=== PATIENT | male | born 1975 | race Caucasian/White ===

== ENCOUNTER → 2017-12-17 15:40 | Outpatient (CLI) | payer BC, SELFPAY | PROVIDERS: Family Provider Family Medicine; PCP Family Medicine; Visit Provider Family Medicine | DX: M79.672 Pain in left foot (principal) | CPT/HCPCS: 73630 ==

== ENCOUNTER → 2018-09-22 10:45 | Outpatient (CLI) | payer BC, SELFPAY ==
--- NOTE | 2018-09-22 10:52 | RAD_ITS ---
STUDY: X-RAY - PELVIS AND BILATERAL HIPS REASON FOR EXAM: Male, 43 years old. Hip pain TECHNIQUE: AP view of the pelvis.? 2 views of the right hip, and 2 views of the left hip were obtained. COMPARISON: None. FINDINGS: There is a non-specific bowel gas pattern. Normal visualized soft tissue structures. Normal bilateral iliac wings, sacroiliac joints and visualized sacrum. Normal bilateral superior and inferior pubic rami. Normal pubic symphysis. Normal bilateral ischial tuberosities. Normal visualized right femoral head. Normal right acetabulum. Normal right hip joint. Normal visualized left femoral head. Normal left acetabulum. Normal left hip joint. RAD/Hips B/L min 2 views w/ Pelvis IMPRESSION: Normal x-ray examination of the pelvis and bilateral hips. Electronically Signed: Mitch Alvarez DO at 19:26 EDT Tel , Service support ,
--- NOTE | 2018-09-22 10:53 | RAD_ITS ---
STUDY: X-RAY - SACROILIAC JOINTS REASON FOR EXAM: Male, 43 years old. Lumbar radiculopathy TECHNIQUE: 3 view(s) of the sacroiliac joints were obtained. COMPARISON: None. FINDINGS: Normal bilateral sacroiliac joints. Normal visualized sacral ala and sacrum. Normal visualized iliac bones. Normal visualized soft tissue structures. RAD/S-I Jts 3 or More Views IMPRESSION: Normal x-ray examination of the bilateral sacroiliac joints. Electronically Signed: Mitch Alvarez DO at 21:00 EDT Tel , Service support ,
--- NOTE | 2018-09-22 10:55 | RAD_ITS ---
STUDY: X-RAY - LUMBAR SPINE REASON FOR EXAM: Male, 43 years old. Back pain TECHNIQUE: 5 view(s) of the lumbar spine were obtained. COMPARISON: None FINDINGS: Normal lumbar lordosis. There is no substantial scoliosis. There is a normal alignment of the vertebrae. Normal vertebral bodies and endplates. Normal disc space heights. The soft tissue structures are unremarkable. RAD/L/S Spine Min 4 Views IMPRESSION: Normal x-ray examination of the lumbar spine. Electronically Signed: Mitch Alvarez DO at 19:27 EDT Tel , Service support ,
== END ==
PROVIDERS: Family Provider Family Medicine; PCP Family Medicine; Referring Provider Family Medicine; Visit Provider Family Medicine
DX: M25.551 Pain in right hip (principal); M25.552 Pain in left hip; M54.16 Radiculopathy, lumbar region
CPT/HCPCS: 72110; 72202; 73521

== ENCOUNTER → 2018-10-30 09:57 | Outpatient (CLI) | payer BC, SELFPAY ==
[2018-10-30 13:34] LABS: AST(SGOT) 13 U/L (15-37); Alanine Aminotransfer ALT/SGPT 31 U/L (16-61); Albumin, Serum 4.1 g/dL (3.2-5.0); Alkaline Phosphatase 62 U/L (45-117); Anion Gap 10 (5-15); BUN 17 mg/dL (7-18); BUN/Creat Ratio 17.5 RATIO (10-20); Bilirubin, Direct 0.13 mg/dL (0.00-0.30); Chloride 102 mmol/L (98-107); Cholesterol 226 mg/dL (200); Creatinine, Serum 0.97 mg/dL (0.70-1.30); EST Glomerular Filtration Rate 91 mL/min (>60); Est Glom Filt Rate - Afr Amer 110 mL/min (>60); Globulin 3.6 g/dL (2.2-4.2); Glucose 320 mg/dL (74-106); High Density Lipoprotein 58 mg/dL; Potassium 4.7 mmol/L (3.5-5.1); Protein, Total 7.7 g/dL (6.4-8.2); Sodium Level 137 mmol/L (136-145); Triglycerides 146 mg/dL; Very Low Density Lipoprotein 29 mg/dL (5-40)
[2018-10-30 13:54] LABS: Hemoglobin A1c 9.9 % (4.2-6.3)
== END ==
PROVIDERS: Family Provider Family Medicine; PCP Family Medicine; Visit Provider Family Medicine
DX: E11.9 Type 2 diabetes mellitus without complications (principal)
CPT/HCPCS: 36415; 80048; 80061; 80076; 83036

== ENCOUNTER 2018-11-19 14:20 | Emergency (ER) | payer BC, SELFPAY ==
[2018-11-19 14:21] VITALS: BP 142/91; PULSE 97; RESP 18; TEMP 36.2; O2SAT 99; BMI 31.8
[2018-11-19 15:15] VITALS: TEMP 36.2
[2018-11-19 15:50] LABS: Absolute Lymphocyte Count 1.07 X10^3/uL (0.83-4.51); Absolute Neutrophil Count 4.5 X10^3/uL (2.0-7.7); Basophil# 0.04 X10^3/uL; Basophil% 0.6 % (0-1); Eosinophil# 0.07 X10^3/uL; Eosinophils% 1.1 % (0-5); Hematocrit 42.7 % (40-54); Hemoglobin 14.5 g/dL (13.0-16.5); Lymphocyte # 1.07 X10^3/ul (4.0); Mean Corpuscular Hgb 28.7 pg (27.0-32.0); Mean Corpuscular Volume 84.4 fL (80-94); Monocyte# 0.52 X10^3/uL; Monocyte% 8.3 % (0-10); NRBC Flagged by Analyzer 0 % (0-5); Neutrophil # 4.54 X10^3/uL (2.7-7.7); Neutrophil % 72.2 % (47-70); Platelet Count 182 K/mm3 (150-450); RBC Distribution Width CV 12.9 % (11.6-14.6); RBC Distribution Width SD 39.1 fl (35.1-43.9); Red Blood Count 5.06 M/mm3 (4.6-6.2); White Blood Count 6.3 K/mm3 (4.4-11.0)
[2018-11-19 16:00] VITALS: TEMP 36.8
[2018-11-19 16:02] LABS: Anion Gap 7 (5-15); BUN 15 mg/dL (7-18); Calcium,Total 8.8 mg/dL (8.5-10.1); Chloride 104 mmol/L (98-107); Creatinine, Serum 0.88 mg/dL (0.70-1.30); EST Glomerular Filtration Rate 101 mL/min (>60); Est Glom Filt Rate - Afr Amer 122 mL/min (>60); Estimated Creatinine Clearance 135.63 ml/min; Glucose 250 mg/dL (74-106); Potassium 4.1 mmol/L (3.5-5.1); Sodium Level 139 mmol/L (136-145)
--- NOTE | 2018-11-19 16:57 | ED.DCSUM_ITS ---
History of Present Illness Chief Complaint: Cellulitis Informant: Patient Onset: Days - 2 Context: Gradual Onset Timing: Continuous Quality of Pain: Aching - and sore Location: RLE Current Severity: Moderate Maximum Severity: Moderate Worsened by: palpation, walking Relieved by: leaving alone Associated Symptoms: Negative for: Parasthesia, Weakness, Loss of Funtion Narrative: Patient states he recently was on vacation and took a [place] Walk in sandals and developed some blisters in the bottom of his foot. 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 2 days ago he noticed that 1 of the blisters broke open and he started having redness and pain on top of his foot, today that is spread up his leg. He denies any fevers or systemic symptoms, the area just hurts and is red and so he was concerned because of his diabetes and this wound. There is been no discharge from the wound. - Past Medical History (1) Type 2 diabetes mellitus Status: Chronic (2) Hypertension Status: Chronic Past Medical History - Allergies and Home Meds Allergies/Adverse Reactions: Allergies No Known Allergies Allergy (Verified 11/19/18 14:21) Primary Care Physician: Rory Greenfield MD [Primary Care Provider] - Lives: Spouse/ Significant Other Smoking Status: Former smoker Drugs: None Review of Systems General: Denies: Chills, Fever Respiratory: Denies: Dyspnea, Cough Musculoskeletal: Reports: Extremity Pain. Denies: Swelling Skin: Reports: Rash. Denies: Abscess Neurological: Reports: Numbness - both forefeet, chronic Physical Exam Vital Signs/Narrative: Vital Signs Temp Pulse Resp BP Pulse Ox 11/19/18 16:00 98.2 F 11/19/18 15:15 97.2 F L 11/19/18 14:21 97.2 F L 97 18 142/91 H 99 Inital Vital Signs reviewed: Yes - Extremity Exam Right Tib fib: - - Tender along the anterior lower leg, although there is no visible cellulitis. No palpable cords. This ends at the distal thigh, again no palpable cords or obvious lymphangitis. No calf tenderness. No pedal edema. Right Foot: - - Blanching tender erythema without abscess on dorsum of foot emanating from the peroneal aspect, fourth toe approximately, where at the plantar aspect of the base of this toe there is a ruptured bulla without obvious wound infection, purulent discharge, or abscess. There are other blisters nearby that are nonruptured and look okay. No tenderness in the forefoot, as he is numb from neuropathy there.. Negative for: Limited ROM General: Well nourished, Well developed, - - Well-appearing, NAD Head: Normocephalic, Atraumatic Skin: No Trauma, Rash - Cellulitis right foot, see above. No objective lymphangitis. Neurological: Alert, Oriented x3, Cranial nerves II-XII grossly intact, Normal Strength. Negative for: Normal Sensation - Decreased sensation distal half of feet bilaterally Psychological: Normal affect, Normal Mood Diagnostic/Tx/Re-eval Laboratory Tests 11/19/18 11/19/18 Range/Units 13:36 13:36 WBC 6.3 (4.4-11.0) K/mm3 RBC 5.06 (4.6-6.2) M/mm3 Hgb 14.5 (13.0-16.5) g/dL Hct 42.7 (40-54) % MCV 84.4 (80-94) fL MCH 28.7 (27.0-32.0) pg MCHC 34.0 (32-36) g/dL RDW Std Deviation 39.1 (35.1-43.9) fl RDW Coeff of Chandni 12.9 (11.6-14.6) % Plt Count 182 (150-450) K/mm3 MPV 11.0 (6.2-12.0) fl Immature Gran % (Auto) 0.800 (0.0-0.9) % Neut % (Auto) 72.2 H (47-70) % Lymph % (Auto) 17.0 L (19-41) % [place] % (Auto) 8.3 (0-10) % Eos % (Auto) 1.1 (0-5) % Baso % (Auto) 0.6 (0-1) % Absolute Neuts (auto) 4.5 (2.0-7.7) X10^3/uL Absolute Lymphs (auto) 1.07 (0.83-4.51) X10^3/uL Absolute Nucleated RBC 0.00 (0-5) 10^3/uL Nucleated RBC % 0 (0-5) % Sodium 139 (136-145) mmol/L Potassium 4.1 (3.5-5.1) mmol/L Chloride 104 (98-107) mmol/L Carbon Dioxide 28.0 (21.0-32.0) mmol/L Anion Gap 7 (5-15) BUN 15 (7-18) mg/dL Creatinine 0.88 (0.70-1.30) mg/dL Estim Creat Clear Calc 135.63 ml/min Est GFR (MDRD) Af Amer 122 (>60) mL/min Est GFR (MDRD) Non-Af 101 (>60) mL/min BUN/Creatinine Ratio 17.0 (10-20) RATIO Glucose 250 H (74-106) mg/dL Calcium 8.8 (8.5-10.1) mg/dL - Medical Decision Making Given his wound, peripheral neuropathy, and diabetes, I suspect this is cellulitis from the wound on the bottom of his foot. Since he is tender and much more of a distribution up his right lower extremity than the cellulitis appears to show, I theorize he may have early lymphangitis and I think it would be best to treat him with IV antibiotics here in the ER. He was given vancomy [place]. I do not think he needs to be admitted for this, he is well, not septic, his white blood count is 6.3. I recommend wound care and close outpatient follow-up with antibiotics and he is comfortable with that plan. No abscess or reason to suspect MRSA or osteomyelitis at this time. ED Disposition - Plan for ED Patient: Disposition: Home or Assisted Living Diagnosis: Cellulitis of right foot, Wound infection, Hyperglycemia due to type 2 diabetes mellitus Instructions: Cellulitis Prescriptions: Cephalexin [Keflex] 500 mg PO 4X/DAY #40 cap Prescription Printed Referrals: Rory Greenfield MD [Primary Care Provider] - 3-5 Days
[2018-11-19 17:00] VITALS: BP 138/88; PULSE 92; RESP 16; TEMP 37; O2SAT 97
[2018-11-19 18:00] VITALS: TEMP 36.8
[2018-11-19] MEDS: Cephalexin 250 MG Capsule 500 MG PO (18:23)
[2018-11-19 18:46] VITALS: BP 138/79; PULSE 89; RESP 16; O2SAT 98
== END 2018-11-19 18:47 | disposition home or self-care (01) ==
PROVIDERS: Emergency Provider Emergency Medicine; Family Provider Family Medicine; PCP Family Medicine
DX: L03.115 Cellulitis of right lower limb (principal); E11.40 Type 2 diabetes mellitus with diabetic neuropathy, unspecified; E11.65 Type 2 diabetes mellitus with hyperglycemia; I10 Essential (primary) hypertension; Z87.891 Personal history of nicotine dependence; Z79.4 Long term (current) use of insulin; Z79.899 Other long term (current) drug therapy
CPT/HCPCS: 80048; 85025; 96365; 96366; 99284; J7040; J7050; A4216

== ENCOUNTER 2019-02-22 19:20 | Observation (INO) | payer BC, SELFPAY ==
[2019-02-22 19:21] VITALS: BP 169/101; PULSE 101; RESP 18; TEMP 36.9; O2SAT 100; BMI 32.3
--- NOTE | 2019-02-22 20:29 | HP.PCM_ITS ---
Problem List (1) Intractable back pain Status: Acute (2) Lumbar radiculopathy Status: Acute (3) Anxiety Status: Chronic (4) Type 2 diabetes mellitus Status: Chronic Qualifiers: Diabetes mellitus prison insulin use: with exterminator helper use Diabetes mellitus complication status: with other specified complication Qualified Code(s): E11.69 - Type 2 diabetes mellitus with other specified complication; Z79.4 - long-term (current) use of insulin (5) Hypertension Status: Chronic Qualifiers: Hypertension type: essential hypertension Qualified Code(s): I10 - Essential (primary) hypertension History of Present Illness Date of Admission: 02/22/19 Chief Complaint: Intractable lumbar back pain, radiculopathy 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 ED on 02/22/19 with history of recent URI symptoms over the past week with congestion, rhinorrhea, ongoing cough although not markedly productive with myalgias and arthralgias, seemingly to them start to have improved however with ongoing cough with noted onset Friday a.m. mild lumbar back discomfort above baseline with worsening overall the next several days eventually prompting ED evaluation at [facility] with at that time referral to his primary care physician and improvement with ED medications with evaluation his PCP office on Friday with at that time initiation of steroid taper as well as gabapentin with only minimal improvement prompting eventual ED presentation. He notes pain is primarily in the mid and left lumbar back region, worse with movement, worse with any straight leg raise attempts, concurrent shooting pains from the lower back into the buttock and into the groin and left thigh region. Work-up in ED included T 98.4, heart rate 101, BP 169/101, respiratory rate 18, 100% on room air, BC with WBC 8.4, hemoglobin 13.3, platelet 296 with left shift, unremarkable coags, BMP with BUN/creatinine 19/0.78, glucose 159, and film of the lumbar spine obtained per ED as had not been performed at [facility] ED with noted curvature of the spine mildly altered since 08/2018 plain film with no definitive abnormalities. In the ED patient ministered morphine, Zofran. Past Medical History Past Medical History (Chronic Problems): Chronic Problems Type 2 diabetes mellitus (Chronic) Hypertension (Chronic) Anxiety (Chronic) Allergies No Known Allergies Allergy (Verified 02/22/19 19:25) Home Medications: Ambulatory Orders Medication Instructions Recorded Bupropion HCl [Bupropion Xl] 300 mg PO QHS 11/19/18 Glimepiride 4 mg PO DAILY 11/19/18 Insulin Glargine [Lantus SoloStar 55 units SQ QHS 11/19/18 Pen] Lisinopril [Zestril] 10 mg PO DAILY 11/19/18 metFORMIN HCl [Glucophage] 1,000 mg PO BIDCM 11/19/18 Cyclobenzaprine HCl 10 mg PO QHS 02/22/19 Gabapentin [Neurontin] 100 mg PO QHS 02/22/19 Rosuvastatin Calcium [Crestor] 5 mg PO QHS 02/22/19 Surgical History: - - Patient denies any prior surgical history. Psychiatric History: Anxiety Smoking Status: Former smoker - Patient quit cigarette tobacco usage approximate 8 to 9 years prior to current presentation. Tobacco Use: Non-smoker Alcohol: Occasional Drugs: None - *Family History Maternal History Items: Diabetes, Heart Disease Paternal History Items: Diabetes, Heart Disease Review of Systems Constitutional: Reports: Anorexia, Malaise, Weakness, Fatigue. Denies: Chills, Fever, Weight Change HEENT: Denies: Head Aches, Sinus Congestion, Sinus Drainage Cardiovascular: Denies: Chest Pain, Palpitations Respiratory: Reports: Cough. Denies: Shortness of Breath, Shortness of breath at rest, Shortness of breath upon exertion, Sputum production, Wheezing Gastrointestinal: Denies: Abdominal Pain, Nausea, Vomiting Genitourinary: Denies: Dysuria Musculoskeletal: Reports: Back Pain, Joint Pain, Leg Pain, Muscle pain. Denies: Joint Tenderness Skin: Denies: Rash, Wounds Neurological: Denies: Numbness, Tingling, Focal weakness Psychiatric: Reports: Anxiety. Denies: Depression, Homicidal Ideations, Suicidal Ideations Hematologic/ Lymphatic: Denies: Easy Bruising, Easy Bleeding VTE Information - Inpt Only VTE Present on Admission: No VTE Mechan Device Prophylaxis: SCD's VTE Pharm Prophylaxis ordered?: Yes Patient Problems: Active and Suspected Problems Intractable back pain (Acute) Lumbar radiculopathy (Acute) Subjective: Seated upright and laying in the ED bed, fatigued appearing, uncomfortable appearing although notes if he does not move from current position the lumbar back pain does not worsen. Objective: Physical Examination: General: awake, alert, oriented x 3 and cooperative, seated upright in ED bed, uncomfortable appearing, worsened discomfort with any movement attempts. Skin: normal color, turgor, no icterus, cyanosis. HEENT: AT/NC, EOMI, PERRLA, dry MM, no carotid bruits or JVD noted. Lungs: CTA bilaterally, moderate effort, mild decrease BL bases, no rales, ronchi or wheezing. Heart: Mildly tachycardic with regular rhythm; no gallop, rub audible. Abdomen: soft, awake, NTTP, ND, normal BS, no HSM. Extremities: no cyanosis, clubbing, or edema, discomfort with palpation of the lumbar spine including left paraspinous region also, worsened with attempted straight leg raise or any particular movement of the lower extremity primarily left-sided with complaint of radiculopathy with shooting pains to the left buttock mid but as well as left groin and left anterior thigh. Neurological: patient awake, alert, oriented x 3; cognitive function intact; pupils equally reactive to light and accomodation; cranial nerves II-XII grossly normal, moving all 4 extremities although extremely limited given acute presentation especially left lower extremity, strength accordingly severely global decreased. Psychiatric: affect appears fatigued, no acute evidence of depressive or anxiety feelings. 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 ED on 02/22/19 with history of recent URI symptoms over the past week has improved however with ongoing cough with noted onset Friday a.m. mild lumbar back discomfort above baseline with worsening overall the next several days with left lower externally radiculopathy, debility. (1) Acute Intractable Back Pain: Plain films in the ED w/ no obvious injury although curvature of the spine altered from 08/2018 films. Will admit to [facility], maintain on fall precautions, frequent positioning, po/IV pain regimen, continue scheduled toradol, gabapentin, medrol dose pack, zanaflex, anti-emetics, bowel regimen. Will consult PT and OT for evaluation. If continued discomfort will pursue MRI of the lumbar spine in a.m. Fall precautions. (2) Diabetes mellitus type II: Hold oral home regimen, continue home insulin regimen, ADA diet, accu checks w/ ISS. (3) Hypertension: Continue home regimen including lisinopril, PRN hydralazine. (4) Hyperlipidemia: Continue home statin regimen. (5) Anxiety: We will continue home bupropion regimen. (6) Tobacco use: Continue tobacco cessation. (7) Recent Viral URI Suspected: Resolving, coughing ongoing but has notably improved, contributes to worsened #1, will have PRN cough agents. CXR OSH ED recently unremarkable. (8) DVT prophylaxis: SCDs, Lovenox. Code Visit OBSV E&M: [id number] Initial observation care L3
[2019-02-22] MEDS: morphine 10 MG/ML Syringe IV (20:42)
[2019-02-22 20:52] LABS: Absolute Lymphocyte Count 0.52 X10^3/uL (0.83-4.51); Absolute Neutrophil Count 7.2 X10^3/uL (2.0-7.7); Basophil# 0.04 X10^3/uL; Basophil% 0.5 % (0-1); Eosinophil# 0.04 X10^3/uL; Eosinophils% 0.5 % (0-5); Hematocrit 38.7 % (40-54); Hemoglobin 13.3 g/dL (13.0-16.5); Lymphocyte # 0.52 X10^3/ul (4.0); Lymphocyte % 6.2 % (19-41); Mean Corp Hgb Conc 34.4 g/dL (32-36); Mean Corpuscular Hgb 30.5 pg (27.0-32.0); Mean Corpuscular Volume 88.8 fL (80-94); Mean Platelet Vol. 10.3 fl (6.2-12.0); Monocyte# 0.56 X10^3/uL; Monocyte% 6.7 % (0-10); NRBC Flagged by Analyzer 0 % (0-5); Neutrophil # 7.18 X10^3/uL (2.7-7.7); Neutrophil % 85.1 % (47-70); POSITIVE DIFFERENTIAL YES; Platelet Count 296 K/mm3 (150-450); RBC Distribution Width SD 39.7 fl (35.1-43.9); Red Blood Count 4.36 M/mm3 (4.6-6.2); White Blood Count 8.4 K/mm3 (4.4-11.0)
[2019-02-22 21:02] LABS: Partial Thromboplast Time 26.9 Seconds (24.1-36.2)
[2019-02-22 21:04] LABS: Anion Gap 8 (5-15); BUN 19 mg/dL (7-18); BUN/Creat Ratio 24.5 RATIO (10-20); Calcium,Total 8.6 mg/dL (8.5-10.1); Chloride 104 mmol/L (98-107); Creatinine, Serum 0.78 mg/dL (0.70-1.30); EST Glomerular Filtration Rate 117 mL/min (>60); Est Glom Filt Rate - Afr Amer 142 mL/min (>60); Estimated Creatinine Clearance 153.01 ml/min; Glucose 159 mg/dL (74-106); Potassium 3.8 mmol/L (3.5-5.1); Sodium Level 139 mmol/L (136-145)
[2019-02-22 21:07] LABS: International Normalized Ratio 1.1; Prothrombin Time (Protime)PT. 14.2 SECONDS (11.7-14.9)
[2019-02-22 21:08] LABS: Differential Indicated SCAN CRITERIA MET
[2019-02-22 21:19] LABS: Differential Comment SCANNED
--- NOTE | 2019-02-22 21:20 | RAD_ITS ---
STUDY: X-RAY - LUMBAR SPINE REASON FOR EXAM: Male, 43 years old. Low back pain. TECHNIQUE: 3 view(s) of the lumbar spine were obtained. COMPARISON: 09/14/2018 FINDINGS: Normal lumbar lordosis. There is significant curvature of the spine, concave to the right. However findings are probably related to pain and spasms since there was no scoliosis at all on the previous exam. There is no substantial scoliosis. There is a normal alignment of the vertebrae. Normal vertebral bodies and endplates. Normal disc space heights. There is no demonstrated fracture. The soft tissue structures are unremarkable. RAD/Lumbar Spine 2 or 3 Views IMPRESSION: Curvature of the spine appears related to pain and spasm and was not present in August of this year. No definite abnormalities. Electronically Signed: Tam Barger MD at 21:37 EDT , Service support ,
--- NOTE | 2019-02-22 21:31 | ED.DCSUM_ITS ---
History of Present Illness Chief Complaint: Back Informant: Patient, Significant Other Onset: Days - 6 Current Severity: Severe Narrative: Patient presents for evaluation worsening back pain over the past 6 days. Reports had upper respiratory symptoms prior states he may have coughed heavily in his sleep woken this past Friday with mild symptoms which worsen the following day. 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 States pain does radiate to his left thighs to the anterior aspect of his knee. No loss of bowel or bladder control. No saddle anesthesia. Reports seen at [place] ED in the initial day, follow- up with his PCP office 2 days late on Friday was started on Motrin, Flexeril, steroids. Symptoms were not improving. Went back to [place] ED today states had imagings and started on gabapentin 100 mg. He was treated for his pain symptoms in the ED. Reports symptoms not improving. EMS brought the patient status post morphine IV. Prior similar symptoms: No Past Medical History - Allergies and Home Meds Allergies/Adverse Reactions: Allergies No Known Allergies Allergy (Verified 02/22/19 19:25) Primary Care Physician: Rory Greenfield MD [Primary Care Provider] - Smoking Status: Former smoker Review of Systems General: Denies: Chills, Fever, Sweats Eyes: Denies: Visual changes - bilaterally, Diplopia ENT: Denies: Rhinorrhea, Sore throat Cardiovascular: Denies: Chest pain, Palpitations Respiratory: Reports: Cough. Denies: Dyspnea, Dyspnea on exertion Gastrointestinal: Denies: Abdominal pain, Nausea, Vomiting, Diarrhea, Melena, Hematochezia Genitourinary: Denies: Dysuria, Hematuria, Frequency Musculoskeletal: Reports: Back pain. Denies: Extremity Pain Skin: Denies: Rash, Wounds Neurological: Denies: Headache, Weakness, Numbness Physical Exam Vital Signs/Narrative: Vital Signs Temp Pulse Resp BP Pulse Ox 02/22/19 19:21 98.4 F 101 H 18 169/101 H 100 Inital Vital Signs reviewed: Yes General: Well nourished, Well developed, - - Uncomfortable walking back and forth in room. Head: Normocephalic, Atraumatic Eyes: Perrl, EOMI ENT: Moist mucous membranes, No rhinorrhea Neck: Supple, Nontender Cardiovascular: Regular rate, Regular rhythm, No murmurs Respiratory: No distress, CTA bilaterally, Chest nontender Abdomen: Soft, Nontender, Nondistended, Normal bowel sounds Back: - - Paralumbar tenderness more on the left, straight leg test was negative bilaterally, 1+ patellar reflex bilaterally. Extremities: Nontender, No edema Skin: Normal color, No rash Neurological: Alert, Oriented x3, Cranial nerves II-XII grossly intact, Normal Strength, Normal Sensation Psychological: Normal affect, Normal Mood Diagnostic/Tx/Re-eval Abnormal Lab Results 02/22/19 02/22/19 02/22/19 20:45 20:45 20:45 WBC 8.4 RBC 4.36 L Hgb 13.3 Hct 38.7 L MCV 88.8 MCH 30.5 MCHC 34.4 RDW Std Deviation 39.7 RDW Coeff of Chandni 13.0 Plt Count 296 MPV 10.3 Immature Gran % (Auto) 1.000 H Neut % (Auto) 85.1 H Lymph % (Auto) 6.2 L [place] % (Auto) 6.7 Eos % (Auto) 0.5 Baso % (Auto) 0.5 Absolute Neuts (auto) 7.2 Absolute Lymphs (auto) 0.52 L Nucleated RBC % 0 Differential Comment SCANNED PT 14.2 INR 1.1 APTT 26.9 Sodium 139 Potassium 3.8 Chloride 104 Carbon Dioxide 27.0 Anion Gap 8 BUN 19 H Creatinine 0.78 Estim Creat Clear Calc 153.01 Est GFR (MDRD) Af Amer 142 Est GFR (MDRD) Non-Af 117 BUN/Creatinine Ratio 24.5 H Glucose 159 H Calcium 8.6 - Medical Decision Making Patient appears having persistent intractable back pain there is no clear injuries. However history concerns for L3 radicular symptoms on the left. He has no cauda equina symptoms. He is treated with 10 mg IV morphine in the ED. Discussed with hospitalist Dr. Sibley with patient's fourth healthcare visit in less than a week. She will evaluate for admission. Labs were placed. Evaluation of [facility] notes he had images of his chest today not his lumbar spine for his cough symptoms which was negative. We will add LS-spine for evaluation. He had normal LS-spine in August of this year. 3 views reviewed by myself notes mild dextroscoliosis appearance however he was leaning to the left on images. No other acute processes are noted. Patient will be admitted to medical floor for intractable pain and further management. ED Disposition - Plan for ED Patient: Disposition: Acute Care Hospital [facility] Diagnosis: Intractable back pain, Lumbar radiculopathy Referrals: Rory Greenfield MD [Primary Care Provider] -
[2019-02-22 22:09] VITALS: BP 166/97; PULSE 99; RESP 16; TEMP 37.3; O2SAT 97
[2019-02-22 22:12] VITALS: BMI 31.6
[2019-02-22 22:22] VITALS: BMI 31.6
[2019-02-22] MEDS: oxyCODONE 5 MG Tablet 10 MG PO (23:00)
[2019-02-22] MEDS: tiZANidine HCl 2 MG Tablet 4 MG PO (23:02)
[2019-02-22] MEDS: Gabapentin 100 MG Capsule 200 MG PO (23:02)
[2019-02-22] MEDS: Famotidine 20 MG Tablet PO (23:02)
[2019-02-22] MEDS: Ketorolac 30 MG/ML Syringe IV (23:03)
[2019-02-22] MEDS: 0.9% Normal Saline 1,000 ML 100 ML IV (23:10)
[2019-02-22 23:36] LABS: Bedside Glucose 186 mg/dL (70-110)
[2019-02-22] MEDS: buPROPion (XL) 300 MG TABLET.XL PO (23:50)
[2019-02-22] MEDS: Atorvastatin Calcium 10 MG Tablet PO (23:50)
[2019-02-22] MEDS: Insulin Lispro 100 UNIT/ML INSULN.PEN SC (23:50)
--- NOTE | 2019-02-22 23:50 | NURSING ---
Called Singh in Pharmacy to ask about Medrol dose pack. Wanted to make sure we were giving the right dose (24 mg) tonight. He advised that 24 mg was correct when starting the Medrol dose pack at this time of the shift.
[2019-02-22] MEDS: MethylPREDNISolone DosePak 4 MG BOX PO (23:51)
[2019-02-23 04:00] VITALS: BP 193/99; PULSE 99; RESP 16; TEMP 37.8; O2SAT 92
[2019-02-23 04:09] VITALS: BP 193/99; PULSE 99
[2019-02-23] MEDS: hydrALAZINE 20 MG/ML Vial 10 MG IV (04:09)
[2019-02-23] MEDS: Acetaminophen 325 MG Tablet 650 MG PO ×2 (04:10→10:16)
[2019-02-23] MEDS: oxyCODONE 5 MG Tablet 10 MG PO ×3 (04:10→13:07)
[2019-02-23] MEDS: Ondansetron 4 MG/2 ML Vial IV (04:12)
[2019-02-23 06:00] LABS: Absolute Lymphocyte Count 0.26 X10^3/uL (0.83-4.51); Absolute Neutrophil Count 5.8 X10^3/uL (2.0-7.7); Basophil# 0.02 X10^3/uL; Basophil% 0.3 % (0-1); Hemoglobin 11.6 g/dL (13.0-16.5); Lymphocyte # 0.26 X10^3/ul (4.0); Mean Corp Hgb Conc 34.1 g/dL (32-36); Mean Corpuscular Hgb 29.1 pg (27.0-32.0); Mean Corpuscular Volume 85.2 fL (80-94); Mean Platelet Vol. 10.3 fl (6.2-12.0); Monocyte# 0.38 X10^3/uL; Monocyte% 5.8 % (0-10); NRBC Flagged by Analyzer 0 % (0-5); Neutrophil # 5.81 X10^3/uL (2.7-7.7); Neutrophil % 89.1 % (47-70); POSITIVE DIFFERENTIAL YES; POSITIVE MORPHOLOGY YES; Platelet Count 222 K/mm3 (150-450); RBC Distribution Width CV 12.9 % (11.6-14.6); RBC Distribution Width SD 39.8 fl (35.1-43.9); Red Blood Count 3.99 M/mm3 (4.6-6.2); White Blood Count 6.5 K/mm3 (4.4-11.0)
[2019-02-23 06:02] VITALS: BP 172/84; TEMP 36.6
[2019-02-23] MEDS: tiZANidine HCl 2 MG Tablet 4 MG PO (06:05)
[2019-02-23] MEDS: Ketorolac 30 MG/ML Syringe IV ×2 (06:05→13:09)
[2019-02-23 06:15] LABS: Differential Indicated SCAN CRITERIA MET
[2019-02-23 06:26] LABS: Anion Gap 8 (5-15); BUN 16 mg/dL (7-18); Calcium,Total 8.2 mg/dL (8.5-10.1); Chloride 101 mmol/L (98-107); Creatinine, Serum 0.73 mg/dL (0.70-1.30); EST Glomerular Filtration Rate 126 mL/min (>60); Est Glom Filt Rate - Afr Amer 152 mL/min (>60); Estimated Creatinine Clearance 159.16 ml/min; Glucose 279 mg/dL (74-106); Magnesium 1.7 mg/dL (1.6-2.6); Potassium 4.1 mmol/L (3.5-5.1); Sodium Level 134 mmol/L (136-145)
[2019-02-23 06:40] LABS: Differential Comment SCANNED
[2019-02-23 06:50] LABS: Bedside Glucose 270 mg/dL (70-110)
[2019-02-23] MEDS: Insulin Lispro 100 UNIT/ML INSULN.PEN SC ×2 (07:25→11:03)
[2019-02-23 07:34] VITALS: O2SAT 92
--- NOTE | 2019-02-23 08:55 | MRI_ITS ---
STUDY: MRI LUMBAR SPINE WITHOUT CONTRAST REASON FOR EXAM: Male, 43 years old. Low back pain. Left hip and leg pain. TECHNIQUE: Standardized fat and water weighted pulse sequences were obtained in the sagittal and axial planes. COMPARISON: X-ray 02/22/2019 FINDINGS: T12-L1: Normal endplates. Normal disc height, hydration and morphology. Normal bilateral facet joints. Normal central canal and bilateral lateral recesses. Normal bilateral intervertebral neural foramina. Normal lumbar lordosis. Mild dextroscoliosis centered at L2/L3. Normal conus medullaris that terminates at the L1. L1-2: Normal endplates. Normal disc height, hydration and morphology. Normal bilateral facet joints. Normal central canal and bilateral lateral recesses. Normal bilateral intervertebral neural foramina. L2-3: Mild broad disc protrusion asymmetric to the left produces mild spinal stenosis and mild left neural foraminal stenosis. L3-4: Normal endplates. Normal disc height, hydration and morphology. Normal bilateral facet joints. Normal central canal and bilateral lateral recesses. Normal bilateral intervertebral neural foramina. L4-5: Mild bilateral facet hypertrophy and moderate ligament flavum hypertrophy. Moderate sized central and right paracentral disc protrusion with an inferiorly extending right paracentral disc extrusion produces mild spinal stenosis, mild right lateral recess stenosis, and mild bilateral neural foraminal stenosis. L5-S1: Normal endplates. Normal disc height, hydration and morphology. Normal bilateral facet joints. Normal central canal and bilateral lateral recesses. Normal bilateral intervertebral neural foramina. Normal visualized sacral ala. There is edema of the left paraspinous musculature worrisome for muscle strain or possibly infection. No epidural abscess. MRI/Spine Lumbar (Routine) IMPRESSION: 1. Ill-defined edema of the left paraspinous musculature worrisome for muscle strain or possibly infectious myositis. No extension into the spinal canal and no epidural abscess. 2. Mild dextroscoliosis and degenerative disc disease as described above. Electronically Signed: Scottie Gary MD at 10:13 EDT Tel , Service support ,
--- NOTE | 2019-02-23 08:56 | PCM.PROGNOTE ---
Patient Problems: Active and Suspected Problems Intractable back pain (Acute) Lumbar radiculopathy (Acute) Subjective: Chief complaint: Follow-up after admission for acute intractable low back pain/lumbar radiculopathy. Patient seen and examined. No acute events overnight. He is still complaining of low back pain, more on the left side of the lumbar lesion just next to the vertebral column, radiates down to the left hip and left lower extremity. Denied numbness or tingling. Denied focal leg weakness. He denied trauma or mechanical fall. His blood pressure is elevated, had a spike of low-grade fever last night, other vital signs are stable. - Physical Exam Vitals/I&O's: Vital Signs Temp Pulse Resp BP Pulse Ox 98 F 99 16 172/84 H 92 02/23/19 06:02 02/23/19 04:09 02/23/19 04:00 02/23/19 06:02 02/23/19 07:34 Oxygen Delivery Method Room Air Weight: 259 lb 7.745 oz Body Mass Index (BMI) 31.6 Intake and Output for Last 24 Hours 02/21/19 02/22/19 02/23/19 23:59 23:59 23:59 Intake Total 400 / 400 Output Total 900 / 900 Balance -500 / -500 General: Alert, Oriented x3, Cooperative, No apparent distress HEENT: Atraumatic, PERRLA, EOMI, Normocephalic Oral: Moist Mucosa, No Gingival or Mucosal Lesions/ Ulcerations Neck: Supple, No JVD, Negative Carotid Bruits, Trachea Midline, Thyroid Normal Size and Texture Lungs: Clear to auscultation, Normal air movement, No rhonchi, No wheeze, No rales Cardiovascular: Regular rate, Regular Rhythm, Normal S1, Normal S2, No murmurs, PMI Normal Abdomen: Bowel Sounds Present, Soft, Non Tender, Non-Distended, No Hepato-splenomegaly Extremities: No clubbing, No cyanosis, No edema Skin: No rashes, No breakdown Lymphatic: No Cervical, Supraclavicular, or Inguinal Adenopathy Neurological: Cranial nerves II-XII grossly intact, Motor Exam 5/5 strength throughout Psych/Mental Status: Normal Affect, Appropriate, Alert and oriented to time, place, person, mood and affect Laboratory Results 02/22/19 20:45: WBC 8.4, RBC 4.36 L, Hgb 13.3, Hct 38.7 L, MCV 88.8, MCH 30.5, MCHC 34.4, RDW Std Deviation 39.7, RDW Coeff of Chandni 13.0, Plt Count 296, MPV 10.3, Immature Gran % (Auto) 1.000 H, Neut % (Auto) 85.1 H, Lymph % (Auto) 6.2 L, [place] % (Auto) 6.7, Eos % (Auto) 0.5, Baso % (Auto) 0.5, Absolute Neuts (auto) 7.2, Absolute Lymphs (auto) 0.52 L, Nucleated RBC % 0, Differential Comment SCANNED 02/22/19 20:45: PT 14.2, INR 1.1, APTT 26.9 02/22/19 20:45: Sodium 139, Potassium 3.8, Chloride 104, Carbon Dioxide 27.0, Anion Gap 8, BUN 19 H, Creatinine 0.78, Estim Creat Clear Calc 153.01, Est GFR (MDRD) Af Amer 142, Est GFR (MDRD) Non-Af 117, BUN/Creatinine Ratio 24.5 H, Glucose 159 H, Calcium 8.6 02/22/19 23:26: POC Glucose 186 H 02/23/19 05:47: WBC 6.5, RBC 3.99 L, Hgb 11.6 L, Hct 34.0 L, MCV 85.2, MCH 29.1, MCHC 34.1, RDW Std Deviation 39.8, RDW Coeff of Chandni 12.9, Plt Count 222, MPV 10.3, Immature Gran % (Auto) 0.800, Neut % (Auto) 89.1 H, Lymph % (Auto) 4.0 L, [place] % (Auto) 5.8, Eos % (Auto) 0.0, Baso % (Auto) 0.3, Absolute Neuts (auto) 5.8, Absolute Lymphs (auto) 0.26 L, Nucleated RBC % 0, Differential Comment SCANNED 02/23/19 05:47: Sodium 134 L, Potassium 4.1, Chloride 101, Carbon Dioxide 25.0, Anion Gap 8, BUN 16, Creatinine 0.73, Estim Creat Clear Calc 159.16, Est GFR (MDRD) Af Amer 152, Est GFR (MDRD) Non-Af 126, BUN/Creatinine Ratio 22.0 H, Glucose 279 H, Calcium 8.2 L, Magnesium 1.7 02/23/19 06:36: POC Glucose 270 H Clinical Impression(s) from Imaging Studies Lumbar Spine X-Ray 02/22/19 21:20 IMPRESSION: Curvature of the spine appears related to pain and spasm and was not present in August of this year. No definite abnormalities. Electronically Signed: Tam Barger MD at 21:37 EDT , Service support , Current Medications Acetaminophen (Tylenol) 650 mg PO Q6H PRN PRN PRN Reason: Non-cardiac pain (mod-severe) Last Admin: 02/23/19 04:10 Dose: 650 mg Documented by: Al Hydroxide/Mg Hydroxide (Mylanta Ii) 15 - 30 ml PO Q4H PRN PRN PRN Reason: INDIGESTION Albuterol Sulfate (Ventolin Aerosols) 2.5 mg INHALATION Q2H PRN PRN PRN Reason: dyspnea, wheezing Atorvastatin Calcium (Lipitor) 10 mg PO QHS [facility] Last Admin: 02/22/19 23:50 Dose: 10 mg Documented by: Bupropion HCl (Wellbutrin Xl) 300 mg PO QHS [facility] Last Admin: 02/22/19 23:50 Dose: 300 mg Documented by: Dextrose (D50w Syringe) 0 gm IV X1 PRN; Protocol PRN Reason: Hypoglycemia Enoxaparin Sodium (Lovenox) 40 mg SC DAILY@1000 [facility] Famotidine (Pepcid) 20 mg PO BID [facility] Last Admin: 02/22/19 23:02 Dose: 20 mg Documented by: Gabapentin (Neurontin) 200 mg PO TIDCM [facility] Last Admin: 02/22/19 23:02 Dose: 200 mg Documented by: Glucagon () 1 mg IM .X1 PRN PRN Reason: Hypoglycemia Guaifenesin (Robitussin) 10 ml PO Q4H PRN PRN PRN Reason: coughing Hydralazine HCl (Apresoline Iv) 10 mg IV Q4H PRN PRN PRN Reason: SBP > 160 Last Admin: 02/23/19 04:09 Dose: 10 mg Documented by: Hydromorphone HCl (Dilaudid Inj) 1 mg IV Q3H PRN PRN PRN Reason: Pain Score 6-10/10 Sodium Chloride () 1,000 mls @ 100 mls/hr IV .Q10H [facility] Last Admin: 02/22/19 23:10 Dose: 100 mls/hr Documented by: Insulin Glargine (Lantus ([facility])) 45 - 55 units SC QHS [facility] Last Admin: 02/23/19 00:39 Dose: 45 units Documented by: Insulin Human Lispro (Humalog Kwikpen ([facility])) 0 unit SC ACHS [facility]; Protocol Last Admin: 02/23/19 07:25 Dose: 6 units Documented by: Ketorolac Tromethamine (Toradol) 30 mg IV Q8 [facility] Stop: 02/24/19 06:01 Last Admin: 02/23/19 06:05 Dose: 30 mg Documented by: Lisinopril (Zestril) 10 mg PO DAILY [facility] Magnesium Hydroxide (Milk Of Magnesia) 30 ml PO DAILY PRN PRN Reason: Constipation Methylprednisolone (Medrol Dosepak) 24 mg PO 2200 [facility]; Taper Stop: 02/27/19 09:59 Last Admin: 02/22/19 23:51 Dose: 24 mg Documented by: Nutritional Formula (Lactose Free) (Glucerna Shake) 120 ml PO 4X/DAY [facility] Ondansetron HCl (Zofran) 4 mg IV Q8H PRN PRN PRN Reason: NAUSEA/VOMITING Last Admin: 02/23/19 04:12 Dose: 4 mg Documented by: Oxycodone HCl (Oxyir) 10 mg PO Q4H PRN PRN PRN Reason: Pain Score 6-10/10 Last Admin: 02/23/19 04:10 Dose: 10 mg Documented by: Psyllium Hydrophilic Mucilloid (Metamucil) 1 packet PO DAILY PRN PRN PRN Reason: Constipation Senna/Docusate Sodium (Senokot-S, Radha-Colace) 2 tablet PO BID PRN PRN PRN Reason: Constipation Temazepam (Restoril) 15 mg PO QHS PRN PRN PRN Reason: INSOMNIA Tizanidine HCl (Zanaflex) 4 mg PO Q8H [facility] Last Admin: 02/23/19 06:05 Dose: 4 mg Documented by: Medical Necessity - Tobacco Use Smoking Status: Former smoker - Patient quit cigarette tobacco usage approximate 8 to 9 years prior to current presentation. Tobacco Use: Non-smoker Assessment/Plan All Active Problems Intractable back pain (Acute) Lumbar radiculopathy (Acute) This is a 43 years old male patient admitted for intractable lumbar back pain with radiculopathy for evaluation. #1 acute intractable lower back pain/lumbar encephalopathy: He is on IV Dilaudid as well as OxyIR PRN for pain. He is on Medrol Dosepak. Patient still symptomatic. He denied numbness or tingling, no focal weakness. X-ray of the lumbar spine reviewed. His blood pressure is elevated, other vital signs are stable. Plan: Urgent MRI lumbar spine. #2 type 2 diabetes mellitus: Blood sugar stable, he is on Lantus nightly, sliding scale. #3 hypertension: Blood pressure is elevated which is likely because of pain. He is on lisinopril and IV hydralazine PRN. #4 hyperlipidemia: Continue statins. #5 anxiety: Continue bupropion. #6 DVT prophylaxis: Subcu Lovenox. This note was generated with [employer] dictation software. It may contain incorrect words, spelling, and punctuation that were not noted in checking the note before signing. Code Visit OBSV E&M: 08843 Subsequent observation care L2
[2019-02-23 09:00] VITALS: BP 122/61; PULSE 94; RESP 16; TEMP 36.8; O2SAT 98
[2019-02-23] MEDS: Lisinopril 10 MG Tablet PO (09:04)
[2019-02-23] MEDS: Famotidine 20 MG Tablet PO (09:05)
[2019-02-23] MEDS: Gabapentin 100 MG Capsule 200 MG PO ×2 (09:06→12:25)
[2019-02-23] MEDS: Enoxaparin 40 MG/0.4 ML Syringe SC (10:16)
[2019-02-23] MEDS: 0.9% Saline Lock 10 ML Syringe IV ×2 (10:16→13:08)
[2019-02-23] MEDS: 0.9% Normal Saline 1,000 ML 100 ML IV (10:16)
[2019-02-23] MEDS: MethylPREDNISolone DosePak 4 MG BOX PO (11:04)
--- NOTE | 2019-02-23 11:35 | PCM.DC ---
- Discharge Diagnoses Current Active Problems: Current Active and Chronic Problems Intractable back pain (Acute) Lumbar radiculopathy (Acute) Anxiety (Chronic) You will use the following diet at home:: Calorie/Carbohydrate Controlled (specify 1200, 1400, etc) - 1800 rod., Cardiac Your food should be the consistency of: Regular Discharge Activity: Return to Normal Activity, May not drive while taking narcotic pain medications. Return to work on:: 03/01/19 Weight Bearing Status: Weight bearing as tolerated Call your doctor if you observe: Fever of 101 or Higher, Shortness of breath, Dizziness, Fainting spells, Chest pain, Increased palpitations (irregular heartbeat), Uncontrolled pain Instructions: Relieving Back Pain Allergies/Adverse Reactions: Allergies No Known Allergies Allergy (Verified 02/22/19 19:25) Medications to take at Discharge Bupropion HCl [Bupropion Xl] 300 mg PO QHS 11/19/18 Glimepiride 4 mg PO DAILY 11/19/18 Insulin Glargine [Lantus SoloStar Pen] 55 units SQ QHS 11/19/18 Lisinopril [Zestril] 10 mg PO DAILY 11/19/18 metFORMIN HCl [Glucophage] 1,000 mg PO BIDCM 11/19/18 Cyclobenzaprine HCl 10 mg PO QHS 02/22/19 Gabapentin [Neurontin] 100 mg PO QHS 02/22/19 Rosuvastatin Calcium [Crestor] 5 mg PO QHS 02/22/19 Oxycodone [Oxyir] 5 - 10 mg PO Q6H PRN PRN 5 Days #20 tab 02/23/19 Prednisone 40 mg PO DAILY #8 tab 02/23/19 cycloBENZAPRine HCl [Flexeril] 10 mg PO TID PRN PRN #20 tab 02/23/19 The following prescriptions were given: cycloBENZAPRine HCl [Flexeril] 10 mg PO TID PRN PRN #20 tab PRN Reason: muscle pain, spasm Transmission Status: Received by [id number] Oxycodone [Oxyir] 5 - 10 mg PO Q6H PRN PRN 5 Days #20 tab PRN Reason: Pain Score 6-10/10 Prescription Printed Prednisone 40 mg PO DAILY #8 tab Transmission Status: Received by [id number] Primary Care Physician: Rory Greenfield MD [Primary Care Provider] - Please follow up with your Primary Care Physician in: 1 week. Test Results: Test results from this visit will be discussed in further detail at your follow-up appointment, if applicable.
--- NOTE | 2019-02-23 13:19 | PCM.DC.SUM ---
Discharge Date and Diagnosis - Problem List Patient Problems: Active and Suspected Problems Intractable back pain (Acute) Lumbar radiculopathy (Acute) Date of Admission: 02/22/19 Date of Discharge: 02/23/19 - Primary Discharge Diagnosis Active and Suspected Problems #1 intractable lower back pain (Acute) #2 lumbar radiculopathy (Acute) #3 left paraspinous muscle strain - Secondary Discharge Diagnosis Chronic Problems Type 2 diabetes mellitus (Chronic) Hypertension (Chronic) Anxiety (Chronic) Hospital Course and Treatment Imaging Results: 02/23/19 08:55 Spine Lumbar (Routine) [MRI] Urgent Clinical Impression(s) from Imaging Studies Lumbar Spine X-Ray 02/22/19 21:20 IMPRESSION: Curvature of the spine appears related to pain and spasm and was not present in August of this year. No definite abnormalities. Electronically Signed: Tam Barger MD at 21:37 EDT , Service support , Lumbar Spine MRI 02/23/19 08:55 IMPRESSION: 1. Ill-defined edema of the left paraspinous musculature worrisome for muscle strain or possibly infectious myositis. No extension into the spinal canal and no epidural abscess. 2. Mild dextroscoliosis and degenerative disc disease as described above. Electronically Signed: Scottie Gary MD at 10:13 EDT Tel , Service support , Operations: None Procedures: None Summary of Care Provided: Patient seen and examined on the day of discharge and appeared to be stable to be discharged home. He is still complaining of back pain but improved with pain medications. He is able to ambulate. MRI lumbar spine done and findings reviewed as below. The patient is a 43 year old M patient presented to the emergency room because of low back pain. The pain was on the lower side just left to the vertebral:, Dull aching pain, radiates down to the left hip and left lower extremity. There was no associated numbness, tingling or focal weakness. No associated perineal anesthesia or tingling. Patient denies any trauma or mechanical fall. X-ray lumbar spine revealed capital of the spine appears related to the pain or spasm without definite abnormalities. Patient was treated with p.o. steroids, IV Dilaudid and OxyIR PRN. His pain did improve a little bit but he used continued to complain of significant pain and tenderness on the lower left paraspinal region. MRI lumbar spine done and revealed mild disc protrusion with mild spinal canal stenosis at L2 L3-L4-L5, ill-defined edema of the left paraspinous muscle likely due to muscle strain with no evidence of epidural abscess. She was able to ambulate to the bathroom back and forth. After long discussion with the patient, he agreed to be discharged home. Patient discharged home in a stable medical condition, discharged on prednisone 40 mg p.o. daily for 4 days more, discharged on OxyIR PRN for pain, Flexeril as needed for muscle spasm, prescription given for physical therapy as outpatient, recommended follow-up with PCP in 1 week. Patient Problems: Active and Suspected Problems Intractable back pain (Acute) Lumbar radiculopathy (Acute) - Physical Exam Vitals/I&O's: Vital Signs Temp Pulse Resp BP Pulse Ox 98.2 F 94 16 122/61 H 98 02/23/19 09:00 02/23/19 09:00 02/23/19 09:00 02/23/19 09:00 02/23/19 09:00 Oxygen Delivery Method Room Air Weight: 259 lb 7.745 oz Body Mass Index (BMI) 31.6 Intake and Output for Last 24 Hours 02/21/19 02/22/19 02/23/19 23:59 23:59 23:59 Intake Total 2400 / 2400 Output Total 1700 / 1700 Balance 700 / 700 General: Alert, Oriented x3, Cooperative, No apparent distress HEENT: Atraumatic, PERRLA, EOMI, Normocephalic Oral: Moist Mucosa, No Gingival or Mucosal Lesions/ Ulcerations Neck: Supple, No JVD, Negative Carotid Bruits, Trachea Midline, Thyroid Normal Size and Texture Lungs: Clear to auscultation, Normal air movement, No rhonchi, No wheeze, No rales Cardiovascular: Regular rate, Regular Rhythm, Normal S1, Normal S2, PMI Normal Abdomen: Bowel Sounds Present, Soft, Non Tender, Non-Distended, No Hepato-splenomegaly Extremities: No clubbing, No cyanosis, No edema Skin: No rashes, No breakdown Lymphatic: No Cervical, Supraclavicular, or Inguinal Adenopathy Neurological: Cranial nerves II-XII grossly intact, Neuro grossly intact Laboratory Results 02/22/19 20:45: WBC 8.4, RBC 4.36 L, Hgb 13.3, Hct 38.7 L, MCV 88.8, MCH 30.5, MCHC 34.4, RDW Std Deviation 39.7, RDW Coeff of Chandni 13.0, Plt Count 296, MPV 10.3, Immature Gran % (Auto) 1.000 H, Neut % (Auto) 85.1 H, Lymph % (Auto) 6.2 L, [place] % (Auto) 6.7, Eos % (Auto) 0.5, Baso % (Auto) 0.5, Absolute Neuts (auto) 7.2, Absolute Lymphs (auto) 0.52 L, Nucleated RBC % 0, Differential Comment SCANNED 02/22/19 20:45: PT 14.2, INR 1.1, APTT 26.9 02/22/19 20:45: Sodium 139, Potassium 3.8, Chloride 104, Carbon Dioxide 27.0, Anion Gap 8, BUN 19 H, Creatinine 0.78, Estim Creat Clear Calc 153.01, Est GFR (MDRD) Af Amer 142, Est GFR (MDRD) Non-Af 117, BUN/Creatinine Ratio 24.5 H, Glucose 159 H, Calcium 8.6 02/22/19 23:26: POC Glucose 186 H 02/23/19 05:47: WBC 6.5, RBC 3.99 L, Hgb 11.6 L, Hct 34.0 L, MCV 85.2, MCH 29.1, MCHC 34.1, RDW Std Deviation 39.8, RDW Coeff of Chandni 12.9, Plt Count 222, MPV 10.3, Immature Gran % (Auto) 0.800, Neut % (Auto) 89.1 H, Lymph % (Auto) 4.0 L, [place] % (Auto) 5.8, Eos % (Auto) 0.0, Baso % (Auto) 0.3, Absolute Neuts (auto) 5.8, Absolute Lymphs (auto) 0.26 L, Nucleated RBC % 0, Differential Comment SCANNED 02/23/19 05:47: Sodium 134 L, Potassium 4.1, Chloride 101, Carbon Dioxide 25.0, Anion Gap 8, BUN 16, Creatinine 0.73, Estim Creat Clear Calc 159.16, Est GFR (MDRD) Af Amer 152, Est GFR (MDRD) Non-Af 126, BUN/Creatinine Ratio 22.0 H, Glucose 279 H, Calcium 8.2 L, Magnesium 1.7 02/23/19 06:36: POC Glucose 270 H Current Medications Acetaminophen (Tylenol) 650 mg PO Q6H PRN PRN PRN Reason: Non-cardiac pain (mod-severe) Last Admin: 02/23/19 10:16 Dose: 650 mg Documented by: Al Hydroxide/Mg Hydroxide (Mylanta Ii) 15 - 30 ml PO Q4H PRN PRN PRN Reason: INDIGESTION Albuterol Sulfate (Ventolin Aerosols) 2.5 mg INHALATION Q2H PRN PRN PRN Reason: dyspnea, wheezing Atorvastatin Calcium (Lipitor) 10 mg PO QHS [facility] Last Admin: 02/22/19 23:50 Dose: 10 mg Documented by: Bupropion HCl (Wellbutrin Xl) 300 mg PO QHS [facility] Last Admin: 02/22/19 23:50 Dose: 300 mg Documented by: Dextrose (D50w Syringe) 0 gm IV X1 PRN; Protocol PRN Reason: Hypoglycemia Enoxaparin Sodium (Lovenox) 40 mg SC DAILY@1000 [facility] Last Admin: 02/23/19 10:16 Dose: 40 mg Documented by: Famotidine (Pepcid) 20 mg PO BID [facility] Last Admin: 02/23/19 09:05 Dose: 20 mg Documented by: Gabapentin (Neurontin) 200 mg PO TIDCM [facility] Last Admin: 02/23/19 12:25 Dose: 200 mg Documented by: Glucagon () 1 mg IM .X1 PRN PRN Reason: Hypoglycemia Guaifenesin (Robitussin) 10 ml PO Q4H PRN PRN PRN Reason: coughing Hydralazine HCl (Apresoline Iv) 10 mg IV Q4H PRN PRN PRN Reason: SBP > 160 Last Admin: 02/23/19 04:09 Dose: 10 mg Documented by: Hydromorphone HCl (Dilaudid Inj) 1 mg IV Q3H PRN PRN PRN Reason: Pain Score 6-10/10 Sodium Chloride () 1,000 mls @ 100 mls/hr IV .Q10H [facility] Last Admin: 02/23/19 10:16 Dose: 100 mls/hr Documented by: Insulin Glargine (Lantus ([facility]k)) 45 - 55 units SC QHS [facility] Last Admin: 02/23/19 00:39 Dose: 45 units Documented by: Insulin Human Lispro (Humalog Kwikpen ([facility])) 0 unit SC ACHS [facility]; Protocol Last Admin: 02/23/19 11:03 Dose: 6 units Documented by: Ketorolac Tromethamine (Toradol) 30 mg IV Q8 [facility] Stop: 02/24/19 06:01 Last Admin: 02/23/19 13:09 Dose: 30 mg Documented by: Lisinopril (Zestril) 10 mg PO DAILY [facility] Last Admin: 02/23/19 09:04 Dose: 10 mg Documented by: Magnesium Hydroxide (Milk Of Magnesia) 30 ml PO DAILY PRN PRN Reason: Constipation Methylprednisolone (Medrol Dosepak) 4 mg PO 0800,1200,1700 [facility]; Taper Stop: 02/27/19 09:59 Last Admin: 02/23/19 11:04 Dose: 4 mg Documented by: Nutritional Formula (Lactose Free) (Glucerna Shake) 120 ml PO 4X/DAY [facility] Last Admin: 02/23/19 09:09 Dose: Not Given Documented by: Ondansetron HCl (Zofran) 4 mg IV Q8H PRN PRN PRN Reason: NAUSEA/VOMITING Last Admin: 02/23/19 04:12 Dose: 4 mg Documented by: Oxycodone HCl (Oxyir) 10 mg PO Q4H PRN PRN PRN Reason: Pain Score 6-10/10 Last Admin: 02/23/19 13:07 Dose: 10 mg Documented by: Psyllium Hydrophilic Mucilloid (Metamucil) 1 packet PO DAILY PRN PRN PRN Reason: Constipation Senna/Docusate Sodium (Senokot-S, Radha-Colace) 2 tablet PO BID PRN PRN PRN Reason: Constipation Sodium Chloride () 10 - 40 ml IV UD PRN PRN Reason: SALINE FLUSH Last Admin: 02/23/19 13:08 Dose: 10 ml Documented by: Temazepam (Restoril) 15 mg PO QHS PRN PRN PRN Reason: INSOMNIA Tizanidine HCl (Zanaflex) 4 mg PO Q8H [facility] Last Admin: 02/23/19 06:05 Dose: 4 mg Documented by: Discharge Activity: Return to Normal Activity, May not drive while taking narcotic pain medications. Return to work on:: 03/01/19 Weight Bearing Status: Weight bearing as tolerated Call your doctor if you observe: Fever of 101 or Higher, Shortness of breath, Dizziness, Fainting spells, Chest pain, Increased palpitations (irregular heartbeat), Uncontrolled pain Home Medications: Medications to take at Discharge Bupropion HCl [Bupropion Xl] 300 mg PO QHS 11/19/18 Glimepiride 4 mg PO DAILY 11/19/18 Insulin Glargine [Lantus SoloStar Pen] 55 units SQ QHS 11/19/18 Lisinopril [Zestril] 10 mg PO DAILY 11/19/18 metFORMIN HCl [Glucophage] 1,000 mg PO BIDCM 11/19/18 Cyclobenzaprine HCl 10 mg PO QHS 02/22/19 Gabapentin [Neurontin] 100 mg PO QHS 02/22/19 Rosuvastatin Calcium [Crestor] 5 mg PO QHS 02/22/19 Oxycodone [Oxyir] 5 - 10 mg PO Q6H PRN PRN 5 Days #20 tab 02/23/19 Prednisone 40 mg PO DAILY #8 tab 02/23/19 cycloBENZAPRine HCl [Flexeril] 10 mg PO TID PRN PRN #20 tab 02/23/19 Following Prescrptions Were Given to Patient: cycloBENZAPRine HCl [Flexeril] 10 mg PO TID PRN PRN #20 tab PRN Reason: muscle pain, spasm Transmission Status: Received by [id number] Oxycodone [Oxyir] 5 - 10 mg PO Q6H PRN PRN 5 Days #20 tab PRN Reason: Pain Score 6-10/10 Prescription Printed Prednisone 40 mg PO DAILY #8 tab Transmission Status: Received by [id number] Other Amb Orders: Physical Therapy Evaluation Location: None Selected Primary Care Physician: Rory Greenfield MD [Primary Care Provider] - Please follow up with your Primary Care Physician in: 1 week. Patient Instructions: Relieving Back Pain Disposition: Home Minutes spent on discharge:: 28 Patient Condition:: Stable Medical Necessity - Tobacco Use Smoking Status: Former smoker - Patient quit cigarette tobacco usage approximate 8 to 9 years prior to current presentation. Tobacco Use: Non-smoker Meaningful Use Info Meaningful Use Diagnoses (Choose all that apply): None applicable Code Visit OBSV E&M: 30316 Observation care discharge
[2019-02-23 13:46] VITALS: BP 163/89; PULSE 97; RESP 18; TEMP 36.9; O2SAT 97
[2019-02-23 16:51] LABS: Bedside Glucose 293 mg/dL (70-110)
== END 2019-02-23 13:46 | disposition home or self-care (01) ==
LOC: ED 20:24 → MS3 21:39
PROVIDERS: Admitting Provider Family Medicine; Emergency Provider Emergency Medicine; Family Provider Family Medicine; PCP Family Medicine; Referring Provider Family Medicine; Visit Provider Hospitalist
DX: M54.16 Radiculopathy, lumbar region (principal); S39.012A Strain of muscle, fascia and tendon of lower back, initial encounter; X58.XXXA Exposure to other specified factors, initial encounter; Y93.9 Activity, unspecified; Y92.9 Unspecified place or not applicable; E11.9 Type 2 diabetes mellitus without complications; I10 Essential (primary) hypertension; F41.9 Anxiety disorder, unspecified; Z79.899 Other long term (current) drug therapy; Z79.4 Long term (current) use of insulin; Z87.891 Personal history of nicotine dependence; E78.5 Hyperlipidemia, unspecified
CPT/HCPCS: 36415; 72100; 72148; 80048; 82962; 83735; 85025; 85610; 85730; 96361; 96372; 96374; 96375; 96376; 97161; 97162; 97802; 99218; 99285; J7030; A4216; G0378; J2405

== ENCOUNTER 2019-02-24 20:20 | Observation (INO) | payer BC, SELFPAY ==
[2019-02-24 20:21] VITALS: BP 158/104; PULSE 100; RESP 22; TEMP 37.1; O2SAT 99; BMI 31.5
--- NOTE | 2019-02-24 20:54 | HP.PCM_ITS ---
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 (4) Hypertension Status: Chronic Qualifiers: Hypertension type: essential hypertension Qualified Code(s): I10 - Essential (primary) hypertension (5) Anxiety Status: Chronic History of Present Illness Date of Admission: 02/24/19 Chief Complaint: Ongoing Intractable Lumbar Back Pain 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, 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: Diabetes mellitus type II, HTN, Anxiety, Former Tobacco use who initially presented to the [facility] ED on 02/22/19 after history of recent URI with coughing and worsened lumbar, L>R back pain with L sided radiculopathy with evaluation following admission including lumbar MRI with noted ill-defined edema of the left paraspinous musculature worrisome for muscle strain versus possible myositis with no extension into the spinal canal or epidural abscess with mild dextroscoliosis and degenerative disc disease with treatment at that time inclusive of steroids, Toradol, gabapentin, muscle relaxants as well as IV and oral narcotic therapy with discharge to home however patient now represents to the [facility] ED on 02/24/19 secondary to ongoing severe debilitating pain, similar presentation with noted s evere 10/10 mid and left lumbar back region, worse with movement, worse with any straight leg raise attempts with ongoing shooting pains from the lower back into the buttock and into the groin and left thigh region. Patient and his spouse did talk to Dr. Vallecillo office as well as the primary care physician who recommended return to the hospital for evaluation and possible injections. work- up in the ED included T 98.7, heart rate 100, BP 150/104, respiratory rate 22, 99% on room air, no repeat labs or imaging were obtained in the ED. In ED patient ministered Zofran, morphine and Dilaudid therapy. Past Medical History Past Medical History (Chronic Problems): Chronic Problems Type 2 diabetes mellitus (Chronic) Hypertension (Chronic) Anxiety (Chronic) Allergies No Known Allergies Allergy (Verified 02/22/19 19:25) Home Medications: Ambulatory Orders Medication Instructions Recorded Bupropion HCl [Bupropion Xl] 300 mg PO QHS 11/19/18 Glimepiride 4 mg PO DAILY 11/19/18 Insulin Glargine [Lantus SoloStar 55 units SQ QHS 11/19/18 Pen] Lisinopril [Zestril] 10 mg PO DAILY 11/19/18 metFORMIN HCl [Glucophage] 1,000 mg PO BIDCM 11/19/18 Cyclobenzaprine HCl 10 mg PO QHS 02/22/19 Gabapentin [Neurontin] 100 mg PO QHS 02/22/19 Rosuvastatin Calcium [Crestor] 5 mg PO QHS 02/22/19 Oxycodone [Oxyir] 5 - 10 mg PO Q6H PRN PRN 5 Days 02/23/19 #20 tab Prednisone 40 mg PO DAILY #8 tab 02/23/19 cycloBENZAPRine HCl [Flexeril] 10 mg PO TID PRN PRN #20 tab 02/23/19 Surgical History: - - Patient denies any prior surgical history. Psychiatric History: Anxiety Lives: Spouse/ Significant Other Smoking Status: Former smoker Tobacco Use: Non-smoker Alcohol: Occasional Drugs: None - *Family History Maternal History Items: Diabetes, Heart Disease Paternal History Items: Diabetes, Heart Disease Review of Systems Constitutional: Reports: Anorexia, Malaise, Weakness, Fatigue. Denies: Chills, Fever, Weight Change HEENT: Denies: Head Aches, Sinus Congestion, Sinus Drainage Cardiovascular: Denies: Chest Pain, Palpitations Respiratory: Denies: Cough, Shortness of breath at rest, Sputum production Gastrointestinal: Denies: Abdominal Pain, Nausea, Vomiting Genitourinary: Denies: Dysuria Musculoskeletal: Reports: Back Pain, Joint Pain, Leg Pain, Muscle pain. Denies: Joint Tenderness Skin: Reports: Skin Changes, Wounds. Denies: Rash Neurological: Reports: Numbness, Tingling. Denies: Focal weakness Psychiatric: Denies: Anxiety, Depression, Homicidal Ideations, Suicidal Ideations Hematologic/ Lymphatic: Denies: Easy Bruising, Easy Bleeding VTE Information - Inpt Only VTE Present on Admission: No VTE Mechan Device Prophylaxis: SCD's VTE Pharm Prophylaxis ordered?: No Reason prophylaxis not ordered:: Medical Contraindication Subjective: Laying in the ED bed, primarily to the left side in similar position upon prior ED presentation, notes ongoing pain, receiving Dilaudid currently. Objective: Physical Examination: General: awake, alert, oriented x 3 and cooperative, seated upright in ED bed, uncomfortable appearing, ongoing discomfort to the left lumbar spine as well as left lower extremity with radiculopathy. Skin: normal color, turgor, no icterus, cyanosis. HEENT: AT/NC, EOMI, PERRLA, dry MM, no carotid bruits or JVD noted. Lungs: CTA bilaterally, moderate effort, mild decrease BL bases, no rales, ronchi or wheezing. Heart: Mildly tachycardic with regular rhythm; no gallop, rub audible. Abdomen: soft, awake, NTTP, ND, normal BS, no HSM. Extremities: no cyanosis, clubbing, or edema, discomfort with palpation of the lumbar spine including left paraspinous region also, worsened with attempted straight leg raise or any particular movement of the lower extremity primarily left-sided with complaint of radiculopathy with shooting pains to the left buttock mid but as well as left groin and left anterior thigh. Neurological: patient awake, alert, oriented x 3; cognitive function intact; pupils equally reactive to light and accomodation; cranial nerves II-XII grossly normal, moving all 4 extremities although extremely limited given acute presentation especially left lower extremity, strength accordingly severely global decreased. Psychiatric: affect appears fatigued, flat, no acute evidence of depressive or anxiety feelings. 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 (1) Acute Intractable Lumbar Back Pain: Given ongoing pain, will admit to [facility], maintain on fall precautions, frequent positioning, po/IV pain regimen, continue scheduled gabapentin, oral steroid regimen, PRN Flexeril, anti-emetics, bowel regimen. Will maintain NPO after midnight, defer chemoprophylaxis, obtain labs with coags for possibly injection per Dr. Vallecillo. (2) Diabetes mellitus type II: Hold oral home regimen, continue home insulin regimen, ADA diet, accu checks w/ ISS. (3) Hypertension: Continue home regimen including lisinopril, PRN hydralazine. (4) Hyperlipidemia: Continue home statin regimen. (5) Anxiety: We will continue home bupropion regimen. (6) Tobacco use: Continue tobacco cessation. (7) DVT prophylaxis: SCDs, Lovenox. Code Visit OBSV E&M: 66360 Initial observation care L3
--- NOTE | 2019-02-24 21:03 | ED.VISSUMM ---
- ER Visit Summary Date of Service: 02/24/19 Chief Complaint: Back pain History of Present Illness: The patient is a 43 M with low back pain for days. He was previously admitted to the hospital here. He had an MRI had a work-up which was unremarkable. It was felt that he had myofascial back pain. He has been taking oxycodone, Flexeril, prednisone, but nothing seems to help. He reports decreased sleep, sweats, nausea. Denies any abdominal/GI symptoms months. Denies any symptoms. Denies weakness, but he does have paresthesias in his left leg. This is not new. Denies trauma, back surgery. He had a recent MRI which was unremarkable. Physical Examination: Afebrile and vital signs unremarkable. Patient appears uncomfortable but not toxic or in distress. Abdomen soft and nontender. Back is diffusely tender. Straight leg raise negative. Good strength and sensation distally for subjective paresthesias in his left thigh. Test Results: None performed Emergency Department Course and Treatment: Patient had called his PCP and also the pain management office. He was advised to come to the ED for admission and pain medicine consult. He was treated with Dilaudid and Zofran here. I contacted the hospitalist to admit for further care. Treatment Plan: As above Disposition: Admission Impression: 1. Intractable back pain This note was generated with [employer] dictation software. It may contain incorrect words, spelling, and punctuation that were not noted in review of the chart prior to signing ED Disposition - Plan for ED Patient: Referrals: Rory Greenfield MD [Primary Care Provider] -
[2019-02-24] MEDS: Ondansetron 4 MG/2 ML Vial IV (21:17)
[2019-02-24] MEDS: HYDROmorphone 1 MG/ML Syringe IV ×2 (21:17→23:47)
[2019-02-24 22:03] VITALS: BMI 31.1; BMI 31.2
[2019-02-24 22:32] VITALS: BP 157/89; PULSE 91; RESP 16; TEMP 37.2; O2SAT 98
[2019-02-24] MEDS: cycloBENZAPRine HCl 10 MG Tablet PO (22:52)
[2019-02-24] MEDS: oxyCODONE 5 MG Tablet PO (22:52)
[2019-02-24] MEDS: 0.9% Normal Saline 1,000 ML 125 ML IV (23:24)
[2019-02-24] MEDS: Atorvastatin Calcium 10 MG Tablet PO (23:25)
[2019-02-24] MEDS: buPROPion (XL) 300 MG TABLET.XL PO (23:26)
[2019-02-24] MEDS: Gabapentin 100 MG Capsule 200 MG PO (23:27)
[2019-02-24] MEDS: Insulin Lispro 100 UNIT/ML INSULN.PEN SC (23:30)
[2019-02-25] VITALS (14 sets, daily range): BP systolic 149–188; BP diastolic 73–99; PULSE 87–105; RESP 16–20; TEMP 36.7–37.6; O2SAT 93–97
[2019-02-25 00:01] LABS: Bedside Glucose 262 mg/dL (70-110)
[2019-02-25] MEDS: HYDROmorphone 1 MG/ML Syringe IV ×3 (03:04→09:57)
[2019-02-25] MEDS: hydrALAZINE 20 MG/ML Vial 10 MG IV ×2 (03:11→10:34)
[2019-02-25] MEDS: Acetaminophen 325 MG Tablet 650 MG PO ×3 (03:58→22:36)
[2019-02-25] MEDS: oxyCODONE 5 MG Tablet PO (05:26)
[2019-02-25] MEDS: Senna/Docusate Sodium 1 Tablet 2 TABLET PO (05:27)
[2019-02-25] MEDS: Gabapentin 100 MG Capsule 200 MG PO (05:27)
[2019-02-25 06:20] LABS: Absolute Lymphocyte Count 0.76 X10^3/uL (0.83-4.51); Absolute Neutrophil Count 6.5 X10^3/uL (2.0-7.7); Basophil# 0.01 X10^3/uL; Basophil% 0.1 % (0-1); Eosinophil# 0.01 X10^3/uL; Eosinophils% 0.1 % (0-5); Hematocrit 35.2 % (40-54); Lymphocyte # 0.76 X10^3/ul (4.0); Lymphocyte % 9.4 % (19-41); Mean Corp Hgb Conc 34.1 g/dL (32-36); Mean Corpuscular Hgb 29.3 pg (27.0-32.0); Mean Corpuscular Volume 86.1 fL (80-94); Mean Platelet Vol. 10.3 fl (6.2-12.0); Monocyte# 0.78 X10^3/uL; Monocyte% 9.6 % (0-10); NRBC Flagged by Analyzer 0 % (0-5); Neutrophil # 6.49 X10^3/uL (2.7-7.7); Neutrophil % 79.9 % (47-70); Platelet Count 267 K/mm3 (150-450); RBC Distribution Width CV 12.6 % (11.6-14.6); RBC Distribution Width SD 38.8 fl (35.1-43.9); Red Blood Count 4.09 M/mm3 (4.6-6.2); White Blood Count 8.1 K/mm3 (4.4-11.0)
[2019-02-25 06:37] LABS: Anion Gap 8 (5-15); BUN 13 mg/dL (7-18); Calcium,Total 8.2 mg/dL (8.5-10.1); Chloride 100 mmol/L (98-107); Creatinine, Serum 0.69 mg/dL (0.70-1.30); EST Glomerular Filtration Rate 135 mL/min (>60); Est Glom Filt Rate - Afr Amer 163 mL/min (>60); Estimated Creatinine Clearance 172.97 ml/min; Glucose 267 mg/dL (74-106); Sodium Level 134 mmol/L (136-145)
[2019-02-25 06:40] LABS: Bedside Glucose 244 mg/dL (70-110)
[2019-02-25 06:42] LABS: International Normalized Ratio 1.1; Prothrombin Time (Protime)PT. 14.2 SECONDS (11.7-14.9)
[2019-02-25 06:43] LABS: Partial Thromboplast Time 34.1 Seconds (24.1-36.2)
[2019-02-25] MEDS: Insulin Lispro 100 UNIT/ML INSULN.PEN SC ×4 (07:08→21:07)
[2019-02-25] MEDS: 0.9% Normal Saline 1,000 ML 125 ML IV ×2 (07:08→15:09)
[2019-02-25 07:10] LABS: Bedside Glucose 236 mg/dL (70-110)
[2019-02-25] MEDS: cycloBENZAPRine HCl 10 MG Tablet PO (09:55)
[2019-02-25] MEDS: predniSONE 20 MG Tablet 40 MG PO (09:55)
[2019-02-25] MEDS: Lisinopril 10 MG Tablet PO (09:55)
[2019-02-25] MEDS: Ondansetron 4 MG/2 ML Vial IV (10:39)
[2019-02-25] MEDS: diazePAM 5 MG Tablet 10 MG PO (11:35)
--- NOTE | 2019-02-25 13:05 | NURSING ---
pt off unit to AC
[2019-02-25 13:16] LABS: Bedside Glucose 182 mg/dL (70-110)
--- NOTE | 2019-02-25 13:25 | PCM.PROGNOTE ---
Subjective: Patient was seen and examined today, he is still complaining of low back pain which is quite severe at times, I gave him 10 mg of Valium p.o. today-I think that the pain is due to muscle spasm. Patient is due to have an injection today by pain management. - Physical Exam Vitals/I&O's: Vital Signs Temp Pulse Resp BP Pulse Ox 98.4 F 105 H 18 164/73 H 93 02/25/19 13:04 02/25/19 13:04 02/25/19 13:04 02/25/19 13:04 02/25/19 13:04 Oxygen Delivery Method Room Air Weight: 116.23 kg Body Mass Index (BMI) 31.1 Intake and Output for Last 24 Hours 02/23/19 02/24/19 02/25/19 23:59 23:59 23:59 Intake Total 200 / 200 966.67 / 966.67 Output Total 475 / 475 1979 / 1979 Balance -275 / -275 -1013.33 / -1013.33 General: Alert, Oriented x3, Cooperative, Well developed, Well nourished HEENT: Atraumatic, PERRLA, EOMI, Normocephalic Oral: Moist Mucosa Neck: Supple, Trachea Midline, Thyroid Normal Size and Texture Lungs: Clear to auscultation, Normal air movement, No rhonchi, No wheeze, No rales Cardiovascular: Regular rate, Regular Rhythm, Normal S1, Normal S2, No murmurs Abdomen: Bowel Sounds Present, Soft, Non Tender, Non-Distended Extremities: No clubbing, No cyanosis, No edema, Capillary Refill Less than 3 Seconds Skin: No rashes, No breakdown Musculoskeletal: No Tenderness to Palpation of Joints or Extremities Neurological: Cranial nerves II-XII grossly intact, Neuro grossly intact, Sensory exam intact to light touch and pain, Coordination normal Psych/Mental Status: Normal Affect, Appropriate, Alert and oriented to time, place, person, mood and affect Laboratory Results 02/24/19 23:23: POC Glucose 262 H 02/25/19 05:50: WBC 8.1, RBC 4.09 L, Hgb 12.0 L, Hct 35.2 L, MCV 86.1, MCH 29.3, MCHC 34.1, RDW Std Deviation 38.8, RDW Coeff of Chandni 12.6, Plt Count 267, MPV 10.3, Immature Gran % (Auto) 0.900, Neut % (Auto) 79.9 H, Lymph % (Auto) 9.4 L, [place] % (Auto) 9.6, Eos % (Auto) 0.1, Baso % (Auto) 0.1, Absolute Neuts (auto) 6.5, Absolute Lymphs (auto) 0.76 L, Nucleated RBC % 0 02/25/19 05:50: PT 14.2, INR 1.1, APTT 34.1 02/25/19 05:50: Sodium 134 L, Potassium 4.0, Chloride 100, Carbon Dioxide 26.0, Anion Gap 8, BUN 13, Creatinine 0.69 L, Estim Creat Clear Calc 172.97, Est GFR (MDRD) Af Amer 163, Est GFR (MDRD) Non-Af 135, BUN/Creatinine Ratio 19.0, Glucose 267 H, Calcium 8.2 L 02/25/19 06:14: POC Glucose 244 H 02/25/19 07:07: POC Glucose 236 H 02/25/19 12:53: POC Glucose 182 H Current Medications Acetaminophen (Tylenol) 650 mg PO Q6H PRN PRN PRN Reason: Non-cardiac pain -02/04 Last Admin: 02/25/19 03:58 Dose: 650 mg Documented by: Al Hydroxide/Mg Hydroxide (Mylanta Ii) 15 - 30 ml PO Q4H PRN PRN PRN Reason: INDIGESTION Albuterol Sulfate (Ventolin Aerosols) 2.5 mg INHALATION Q2H PRN PRN PRN Reason: dyspnea, wheezing Atorvastatin Calcium (Lipitor) 10 mg PO QHS [facility] Last Admin: 02/24/19 23:25 Dose: 10 mg Documented by: Bupropion HCl (Wellbutrin Xl) 300 mg PO QHS [facility] Last Admin: 02/24/19 23:26 Dose: 300 mg Documented by: Cyclobenzaprine HCl (Flexeril) 10 mg PO TID PRN PRN PRN Reason: muscle pain, spasm Last Admin: 02/25/19 09:55 Dose: 10 mg Documented by: Dextrose (D50w Syringe) 0 gm IV X1 PRN; Protocol PRN Reason: Hypoglycemia Gabapentin (Neurontin) 200 mg PO TID [facility] Last Admin: 02/25/19 05:27 Dose: 200 mg Documented by: Glucagon () 1 mg IM .X1 PRN PRN Reason: Hypoglycemia Guaifenesin (Robitussin) 20 ml PO Q4H PRN PRN PRN Reason: COUGH Hydralazine HCl (Apresoline Iv) 10 mg IV Q4H PRN PRN PRN Reason: SBP > 160 Last Admin: 02/25/19 10:34 Dose: 10 mg Documented by: Hydromorphone HCl (Dilaudid Inj) 1 mg IV Q3H PRN PRN PRN Reason: severe pain (6-10/10) Last Admin: 02/25/19 09:57 Dose: 1 mg Documented by: Sodium Chloride () 1,000 mls @ 125 mls/hr IV .Q8H [facility] Last Admin: 02/25/19 07:08 Dose: 125 mls/hr Documented by: Insulin Glargine (Lantus (Bkc)) 55 units SC QHS [facility] Last Admin: 02/24/19 23:24 Dose: 55 u Documented by: Insulin Human Lispro (Humalog Kwikpen (Bkc)) 0 unit SC [facility]; Protocol Last Admin: 02/25/19 13:00 Dose: 1 u Documented by: Lisinopril (Zestril) 10 mg PO DAILY [facility] Last Admin: 02/25/19 09:55 Dose: 10 mg Documented by: Magnesium Hydroxide (Milk Of Magnesia) 30 ml PO DAILY PRN PRN Reason: Constipation Nutritional Formula (Lactose Free) (Glucerna Shake) 120 ml PO 4X/DAY [facility] Last Admin: 02/25/19 13:12 Dose: Not Given Documented by: Ondansetron HCl (Zofran) 4 mg IV Q8H PRN PRN PRN Reason: NAUSEA/VOMITING Last Admin: 02/25/19 10:39 Dose: 4 mg Documented by: Oxycodone HCl (Oxyir) 5 - 10 mg PO Q6H PRN PRN PRN Reason: Pain Score 6-10/10 Last Admin: 02/25/19 05:26 Dose: 10 mg Documented by: [facility] () [facility] Stop: 02/28/19 08:01 Last Admin: 02/25/19 09:55 Dose: 40 mg Documented by: Psyllium Hydrophilic Mucilloid (Metamucil) 1 packet PO DAILY PRN PRN PRN Reason: Constipation Senna/Docusate Sodium (Senokot-S, Radha-Colace) 2 tablet PO BID PRN PRN PRN Reason: Constipation Last Admin: 02/25/19 05:27 Dose: 2 tablet Documented by: Sodium Chloride () 10 - 40 ml IV UD PRN PRN Reason: SALINE FLUSH Temazepam (Restoril) 30 mg PO QHS PRN PRN PRN Reason: INSOMNIA Throat Lozenges (Cepacol Sore Throat Lozenge) 1 lozenge MUCOUS MEM Q2H PRN PRN PRN Reason: Sore throat or cough Medical Necessity - Tobacco Use Smoking Status: Former smoker Tobacco Use: Non-smoker Assessment/Plan All Active Problems Intractable back pain (Acute) Lumbar radiculopathy (Acute) #1 lumbar back pain with L2-3 and L4-5 disc protrusions-patient underwent injection today, I have decided to change up his medications-I placed him on IV Decadron, stopped his prednisone, increased his gabapentin, and placed him on Valium for muscle spasm. I do not feel the patient has a muscle abscess, he has had CBCs done on 02/22, 02/23, and 02/25/2019-all of which were normal. Patient is not running a temperature. There is no indication on his MRI that he has an abscess. I talked to his at length about this today in his room. #2 type 2 diabetes- monitor blood sugars #3 Hypertension-we will monitor the patient's blood pressure, it may be necessary to add on a second medication such as amlodipine. Code Visit OBSV E&M: 33324 Subsequent observation care L3
--- NOTE | 2019-02-25 13:55 | PCA ---
pt off floor
--- NOTE | 2019-02-25 14:29 | RAD_ITS ---
STUDY: X-RAY - LUMBAR SPINE REASON FOR EXAM: Male, 43 years old. L5-S1 epidural injection TECHNIQUE: 1 view(s) of the lumbar spine were obtained. COMPARISON: None FINDINGS: Single spot fluoroscopy image demonstrates a needle at the level of L5-S1. There appears to be hyperdense contrast injection. Please see performing physician's report for further details. RAD/Spine 1 View Any Level IMPRESSION: As above Electronically Signed: Mitch Alvarez DO at 19:26 EDT Tel , Service support ,
[2019-02-25] MEDS: Triamcinolone Acetonide 40 MG/ML Vial (14:36)
--- NOTE | 2019-02-25 15:39 | NURSING ---
MD aware of elevated BP. Order to recheck in an hour. Will continue monitor.
[2019-02-25 16:45] LABS: Bedside Glucose 220 mg/dL (70-110)
[2019-02-25] MEDS: amLODIPine 5 MG Tablet PO (18:04)
[2019-02-25] MEDS: Ibuprofen 600 MG Tablet PO (18:06)
[2019-02-25] MEDS: buPROPion (XL) 300 MG TABLET.XL PO (21:06)
[2019-02-25] MEDS: Gabapentin 400 MG Capsule PO (21:06)
[2019-02-25] MEDS: Atorvastatin Calcium 10 MG Tablet PO (21:06)
[2019-02-25] MEDS: dexAMETHasone 4 MG/ML Vial IV (21:07)
[2019-02-25] MEDS: 0.9% Saline Lock 10 ML Syringe IV (21:07)
[2019-02-25 21:21] LABS: Bedside Glucose 391 mg/dL (70-110)
[2019-02-26 02:34] VITALS: BP 155/95; PULSE 84; RESP 16; TEMP 36.4; O2SAT 98
[2019-02-26] MEDS: Ibuprofen 600 MG Tablet PO (06:36)
[2019-02-26] MEDS: dexAMETHasone 4 MG/ML Vial IV (06:37)
[2019-02-26] MEDS: Gabapentin 400 MG Capsule PO (06:37)
[2019-02-26] MEDS: 0.9% Saline Lock 10 ML Syringe IV (06:37)
[2019-02-26] MEDS: Insulin Lispro 100 UNIT/ML INSULN.PEN SC (06:42)
[2019-02-26 07:02] VITALS: O2SAT 96
[2019-02-26 07:30] LABS: Bedside Glucose 275 mg/dL (70-110)
[2019-02-26 07:31] VITALS: BP 166/96; PULSE 92; RESP 16; TEMP 36.8; O2SAT 97
--- NOTE | 2019-02-26 07:44 | DCINST_ITS ---
You will use the following diet at home:: Calorie/Carbohydrate Controlled (specify 1200, 1400, etc) - 1800 rod ada Your food should be the consistency of: Regular Your liquids should be the consistency of: Regular/Thin Discharge Activity: Return to Normal Activity Weight Bearing Status: Weight bearing as tolerated Allergies/Adverse Reactions: Allergies No Known Allergies Allergy (Verified 02/22/19 19:25) Medications to take at Discharge Bupropion HCl [Bupropion Xl] 300 mg PO QHS 11/19/18 Glimepiride 4 mg PO QHS 11/19/18 Insulin Glargine [Lantus SoloStar Pen] 55 units SQ QHS 11/19/18 Lisinopril [Zestril] 10 mg PO DAILY 11/19/18 metFORMIN HCl [Glucophage] 1,000 mg PO BIDCM 11/19/18 Rosuvastatin Calcium [Crestor] 5 mg PO QHS 02/22/19 Oxycodone [Oxyir] 5 - 10 mg PO Q6H PRN PRN 5 Days #20 tab 02/23/19 Acetaminophen [Tylenol Tablet] 650 mg PO Q6H PRN PRN tablet 02/26/19 Amlodipine [Norvasc] 5 mg PO DAILY #30 tab 02/26/19 Diazepam [Valium] 5 mg PO TID PRN PRN #21 tab 02/26/19 Gabapentin [Neurontin] 400 mg PO TID #90 cap 02/26/19 Ibuprofen [Motrin] 600 mg PO Q6H PRN PRN #120 tab 02/26/19 The following prescriptions were given: Ibuprofen [Motrin] 600 mg PO Q6H PRN PRN #120 tab PRN Reason: Pain Score 1-10/10 Prescription Printed Gabapentin [Neurontin] 400 mg PO TID #90 cap Prescription Printed Amlodipine [Norvasc] 5 mg PO DAILY #30 tab Prescription Printed Diazepam [Valium] 5 mg PO TID PRN PRN #21 tab PRN Reason: Muscle Spasm Prescription Printed Primary Care Physician: Rory Greenfield MD [Primary Care Provider] - Please follow up with your Primary Care Physician in: in 2 weeks Test Results: Test results from this visit will be discussed in further detail at your follow- up appointment, if applicable. Please Follow Up With: Yarely Vallecillo MD
[2019-02-26] MEDS: amLODIPine 5 MG Tablet PO (08:57)
[2019-02-26] MEDS: Lisinopril 10 MG Tablet PO (08:57)
[2019-02-26] MEDS: Psyllium 1 PACKET PO (09:00)
[2019-02-26] MEDS: oxyCODONE 5 MG Tablet PO (09:00)
--- NOTE | 2019-02-27 07:55 | DS.PCM_ITS ---
Discharge Date and Diagnosis Date of Admission: 02/24/19 Date of Discharge: 02/26/19 - Primary Discharge Diagnosis #1 lumbar back pain with L2-3 and L4-5 disc protrusions #2 type 2 diabetes- monitor blood sugars #3 Hypertension #4 radiculopathy secondary to degenerative disc disease lumbar spine - Secondary Discharge Diagnosis Chronic Problems Type 2 diabetes mellitus (Chronic) Hypertension (Chronic) Anxiety (Chronic) Hospital Course and Treatment Operations: None Procedures: - - Epidural injection L5-S1 Summary of Care Provided: The patient is a 43 year old M seen in the emergency room at [facility] with chief complaint of worsening lumbar area pain and radiculopathy extending into the patient's left buttocks and leg. An outpatient MRI had been performed on 02/23/2019 which showed disc protrusions at L2-L3, and L4-L5. There is also noted to be edema of the left paraspinous muscle-the significance of this was unknown but felt to be secondary to muscle spasm. She did not appear to have an abscess at the lumbar spine. Patient labs drawn in the emergency room showing an elevated glucose at 267, patient's temperature was 98.7, his blood pressure was 158/104. Patient was given an injection of Dilaudid and Zofran, hospitalist service was called and patient was placed in observation status on MedSur 3. Patient was placed on oral prednisone and IV and p.o. pain medications were given to the patient as well as Valium for lower back spasm. On 02/25/2019, patient underwent an epidural injection at L5-S1 by a pain management, following this injection he was placed on IV Decadron and reevaluated on 02/26/2019. On examination he appeared in good health and spirits. Vital signs as documented. Skin warm and dry and without overt rashes. Neck without JVD. Lungs clear. Heart exam notable for regular rhythm, normal sounds and absence of murmurs, rubs or gallops. Abdomen unremarkable and without evidence of org anomegaly, masses, or abdominal aortic enlargement. Extremities nonedematous. Neuro: Cranial nerves II through XII are grossly intact, no focal motor deficits were noted, sensation to light touch and pinprick intact. Psych: Patient is alert and oriented x3, he does not appear anxious or depressed On 02/26/2019, patient was seen and examined and felt to be in stable condition for discharge home, I discussed his medical care with his during his hospital stay. Patient's outpatient medications were adjusted at the time of discharge. - Physical Exam Vitals/I&O's: Vital Signs Temp Pulse Resp BP Pulse Ox 98.2 F 92 16 166/96 H 97 02/26/19 07:31 02/26/19 07:31 02/26/19 07:31 02/26/19 07:31 02/26/19 07:31 Oxygen Delivery Method Room Air Weight: 116.23 kg Body Mass Index (BMI) 31.1 Intake and Output for Last 24 Hours 02/25/19 02/26/19 02/27/19 23:59 23:59 23:59 Intake Total 2520.84 / 3380.84 860 / 860 Output Total 2780 / 2780 Balance -259.16 / 600.84 860 / 860 Discharge Activity: Return to Normal Activity Weight Bearing Status: Weight bearing as tolerated Home Medications: Medications to take at Discharge Bupropion HCl [Bupropion Xl] 300 mg PO QHS 11/19/18 Glimepiride 4 mg PO QHS 11/19/18 Insulin Glargine [Lantus SoloStar Pen] 55 units SQ QHS 11/19/18 Lisinopril [Zestril] 10 mg PO DAILY 11/19/18 metFORMIN HCl [Glucophage] 1,000 mg PO BIDCM 11/19/18 Rosuvastatin Calcium [Crestor] 5 mg PO QHS 02/22/19 Oxycodone [Oxyir] 5 - 10 mg PO Q6H PRN PRN 5 Days #20 tab 02/23/19 Acetaminophen [Tylenol Tablet] 650 mg PO Q6H PRN PRN tab 02/26/19 Amlodipine [Norvasc] 5 mg PO DAILY #30 tab 02/26/19 Diazepam [Valium] 5 mg PO TID PRN PRN #21 tab 02/26/19 Gabapentin [Neurontin] 400 mg PO TID #90 cap 02/26/19 Ibuprofen [Motrin] 600 mg PO Q6H PRN PRN #120 tab 02/26/19 Following Prescrptions Were Given to Patient: Ibuprofen [Motrin] 600 mg PO Q6H PRN PRN #120 tab PRN Reason: Pain Score 1-02/04 Prescription Printed Gabapentin [Neurontin] 400 mg PO TID #90 cap Prescription Printed Amlodipine [Norvasc] 5 mg PO DAILY #30 tab Prescription Printed Diazepam [Valium] 5 mg PO TID PRN PRN #21 tab PRN Reason: Muscle Spasm Prescription Printed Primary Care Physician: Rory Greenfield MD [Primary Care Provider] - Please follow up with your Primary Care Physician in: in 2 weeks Please Follow Up With: Yarely Vallecillo MD Disposition: Home Minutes spent on discharge:: 32 Patient Condition:: Stable Medical Necessity - Tobacco Use Smoking Status: Former smoker Tobacco Use: Non-smoker Meaningful Use Info Meaningful Use Diagnoses (Choose all that apply): None applicable Code Visit OBSV E&M: 86592 Observation care discharge
== END 2019-02-26 11:30 | disposition home or self-care (01) ==
LOC: ED 20:56 → MS3 21:16
PROVIDERS: Anesthesiology Pain Medicine; Admitting Provider Family Medicine; Emergency Provider Emergency Medicine; Family Provider Family Medicine; PCP Family Medicine; Referring Provider Family Medicine; Visit Provider Internal Medicine
PROC: 3E0S3BZ Introduction of Anesthetic Agent into Epidural Space, Percutaneous Approach (ICD-10-PCS; CPT 62322; principal; 2019-02-25 13:55)
DX: M51.16 Intervertebral disc disorders with radiculopathy, lumbar region (principal); E11.9 Type 2 diabetes mellitus without complications; I10 Essential (primary) hypertension; F41.9 Anxiety disorder, unspecified; Z79.899 Other long term (current) drug therapy; Z79.4 Long term (current) use of insulin; Z87.891 Personal history of nicotine dependence; E78.5 Hyperlipidemia, unspecified
CPT/HCPCS: 62323; 36415; 64483; 72020; 80048; 82962; 85025; 85610; 85730; 96361; 96374; 96375; 96376; 97162; 97530; 97802; 99218; 99285; J7030; A4216; G0378; J2405

== ENCOUNTER 2019-02-27 12:56 | Emergency (ER) | payer BC, SELFPAY ==
[2019-02-24 22:03] VITALS: BMI 31.1
[2019-02-27 12:56] VITALS: BP 147/96; PULSE 98; RESP 16; TEMP 36.9; O2SAT 100; BMI 30.8
[2019-02-27 13:00] VITALS: BP 135/88; PULSE 97; RESP 16; O2SAT 100
[2019-02-27] MEDS: Ondansetron 4 MG/2 ML Vial IV ×2 (13:40→18:04)
[2019-02-27] MEDS: 0.9% Normal Saline 1,000 ML 1000 ML IV (13:40)
--- NOTE | 2019-02-27 13:50 | ED.RN ---
HOLDING CT. WAITING TO HEAR FRO TRANSFER DR MALDONADO
[2019-02-27 13:55] LABS: Absolute Lymphocyte Count 0.69 X10^3/uL (0.83-4.51); Absolute Neutrophil Count 6.9 X10^3/uL (2.0-7.7); Basophil# 0.05 X10^3/uL; Basophil% 0.5 % (0-1); Eosinophil# 0.05 X10^3/uL; Eosinophils% 0.5 % (0-5); Hematocrit 36.1 % (40-54); Lymphocyte # 0.69 X10^3/ul (4.0); Lymphocyte % 7.6 % (19-41); Mean Corp Hgb Conc 33.2 g/dL (32-36); Mean Corpuscular Hgb 28.2 pg (27.0-32.0); Mean Corpuscular Volume 84.9 fL (80-94); Mean Platelet Vol. 9.8 fl (6.2-12.0); Monocyte% 14.3 % (0-10); NRBC Flagged by Analyzer 0 % (0-5); Neutrophil # 6.85 X10^3/uL (2.7-7.7); Neutrophil % 75.2 % (47-70); Platelet Count 218 K/mm3 (150-450); RBC Distribution Width CV 12.7 % (11.6-14.6); RBC Distribution Width SD 38.9 fl (35.1-43.9); Red Blood Count 4.25 M/mm3 (4.6-6.2); White Blood Count 9.1 K/mm3 (4.4-11.0)
[2019-02-27 14:09] LABS: Anion Gap 7 (5-15); BUN 17 mg/dL (7-18); BUN/Creat Ratio 27.4 RATIO (10-20); Calcium,Total 8.3 mg/dL (8.5-10.1); Chloride 100 mmol/L (98-107); Creatinine, Serum 0.62 mg/dL (0.70-1.30); EST Glomerular Filtration Rate 151 mL/min (>60); Est Glom Filt Rate - Afr Amer 183 mL/min (>60); Glucose 324 mg/dL (74-106); Potassium 4.1 mmol/L (3.5-5.1); Sodium Level 134 mmol/L (136-145)
--- NOTE | 2019-02-27 14:24 | ED.DCSUM_ITS ---
History of Present Illness Informant: Patient, Family, Significant Other, [employer] Onset: Today Context: Sudden Onset Injury: Bending Timing: Continuous Quality: Sharp Location: Lumbar, Buttock, Right Leg Current Severity: Severe Maximum Severity: Severe Worsened by: improves with: Movement Relieved by: Remaining Still Associated Symptoms: Radiation to Right Leg Narrative: 43-year-old male history of diabetes presents with back pain by squad. He was actually discharged from here yesterday. At that time he had just had a epidural. He had an MRI done the day before that showed 2 herniated disks. He has been unable to control his pain. He cannot ambulate due to this. He has been on Percocet and Valium. He has not lost control of his bowel or bladder. He does not have any weakness in his lower extremities or difficulty urinating or fevers. Denies trauma. Prior similar symptoms: Yes, With Prior Back Pain Recent Illness/Hospitalization: Yes <Maxim Rice - Last Filed: 02/27/19 15:32> <Maria Eugenia Summers - Last Filed: 02/27/19 21:13> Chief Complaint: Back Past Medical History Prior records reviewed: Yes Past Medical History: - - Diabetes Surgical History: no surgical history, - - Patient denies any prior surgical history. Lives: With Family Smoking Status: Never smoker - Family History Maternal Family History: Reports: Diabetes, Heart Disease Paternal Family History: Reports: Diabetes, Heart Disease <Maxim Rice - Last Filed: 02/27/19 15:32> <Maria Eugenia Summers - Last Filed: 02/27/19 21:13> - Allergies and Home Meds Allergies/Adverse Reactions: Allergies No Known Allergies Allergy (Verified 02/27/19 12:56) Primary Care Physician: Rory Greenfield MD [Primary Care Provider] - Review of Systems All systems negative except as indicated General: Denies: Chills, Fever Musculoskeletal: Reports: Back pain Neurological: Denies: Weakness, Parasthesia, Numbness <Maxim Rice - Last Filed: 02/27/19 15:32> Physical Exam Vital Signs/Narrative: Vital Signs Temp Pulse Resp BP Pulse Ox 02/27/19 13:00 97 16 135/88 H 100 02/27/19 12:56 98.4 F 98 16 147/96 H 100 Inital Vital Signs reviewed: Yes General: Well nourished, Well developed Head: Normocephalic, Atraumatic Eyes: Perrl, EOMI ENT: Moist mucous membranes Neck: Supple, Nontender, No lymphadenopathy, No JVD Cardiovascular: Regular rate, Regular rhythm, No murmurs Respiratory: No distress, CTA bilaterally, Chest nontender Abdomen: Soft, Nontender, Nondistended, Normal bowel sounds, No masses Back: Spinal tenderness, Paraspinal Tenderness, Positive SLR - Right, Negative SLR - Left Extremeties: Nontender, No edema Neuro: Alert, Oriented, Normal Strength, Normal Sensation, Normal DTR, Normal Reflexes <Maxim Rice - Last Filed: 02/27/19 15:32> Vital Signs/Narrative: Vital Signs Temp Pulse Resp BP Pulse Ox 02/27/19 16:56 108 H 18 162/93 H 99 02/27/19 15:04 98.7 F 104 H 16 179/97 H 97 <Maria Eugenia Summers - Last Filed: 02/27/19 21:13> Diagnostic/Tx/Re-eval - Medical Decision Making Erick presents by squad with worsening back pain after recent admission. I reviewed his records. His MRI showed 2 herniated disks as well as a poorly defined edema left paraspinal musculature worrisome for a muscle strain versus possibly infectious myositis. There was no extension into the spinal canal or and epidural abscess. Patient does not have a fever. He does not have any neurologic deficits on physical examination. He is able to stand up. He has a normal white count. I spoke with his pain management physician Dr. Brown who recommended transfer because the patient is to see a spinal surgeon. Family initially requested a transfer to main [facility] and I spoke with the transfer line but they do not have beds therefore I spoke with the transfer line for [facility] and the patient was transferred to [facility] and was accepted by Dr. Arambula. Pain was treated with hydromorphone. He remains hemodynamically stable. They are updated and agreeable with plan. <Maxim Rice - Last Filed: 02/27/19 15:32> - Medical Decision Making Patient seen and evaluated with PA. Patient's recent hospitalization records are reviewed. Patient and family are requesting transfer to [facility] facility. Lab work is obtained today and grossly unremarkable. Phone calls were made to [facility] and patient is been accepted at [facility]. Patient sitting upright in bed no acute distress. Heart regular rate and rhythm. Lung sounds clear. Abdomen is soft nontender. No palpable masses. Lower extremity examination with strong distal pulses bilaterally. <Maria Eugenia Summers - Last Filed: 02/27/19 21:13> Disposition: Transfer Transferred to: [facility] Discussed with Dr(s)/Consults: Dr Ralf Vallecillo <Maxim Rice - Last Filed: 02/27/19 15:32> ED Disposition <Maxim Rice - Last Filed: 02/27/19 15:32> <Maria Eugenia Summers - Last Filed: 02/27/19 21:13> - Plan for ED Patient: Disposition: [facility] Diagnosis: Intractable back pain, Lumbar radiculopathy, Type 2 diabetes mellitus Referrals: Rory Greenfield MD [Primary Care Provider] -
[2019-02-27] MEDS: HYDROmorphone 0.5 MG/0.5 ML SYRINGE IV (14:48)
[2019-02-27 15:04] VITALS: BP 179/97; PULSE 104; RESP 16; TEMP 37.1; O2SAT 97
[2019-02-27 15:15] LABS: Bedside Glucose 258 mg/dL (70-110)
[2019-02-27] MEDS: LORazepam 2 MG/ML Syringe 1 MG IV (15:18)
[2019-02-27] MEDS: fentaNYL 100 MCG/2 ML Ampul 50 MCG IV ×3 (15:30→18:03)
[2019-02-27 16:56] VITALS: BP 162/93; PULSE 108; RESP 18; O2SAT 99
[2019-02-27 17:25] VITALS: BP 158/91; PULSE 105; RESP 16; TEMP 37.1; O2SAT 98
== END 2019-02-27 18:04 | disposition short-term general hospital (02) ==
PROVIDERS: Emergency Provider Physician Assistant Medical; Family Provider Family Medicine; PCP Family Medicine
DX: M54.16 Radiculopathy, lumbar region (principal); E11.9 Type 2 diabetes mellitus without complications; Z79.4 Long term (current) use of insulin; Z79.891 Long term (current) use of opiate analgesic; Z79.899 Other long term (current) drug therapy
CPT/HCPCS: 80048; 82962; 85025; 96361; 96374; 96375; 96376; 99285; A4216; J2405

== ENCOUNTER 2019-03-22 15:40 | Outpatient (RCR) | payer BC, SELFPAY ==
[2019-03-22 16:07] LABS: Hematocrit 39.3 % (40-54); Hemoglobin 12.9 g/dL (13.0-16.5); Mean Corp Hgb Conc 32.8 g/dL (32-36); Mean Corpuscular Hgb 28.3 pg (27.0-32.0); Mean Corpuscular Volume 86.2 fL (80-94); Mean Platelet Vol. 10.8 fl (6.2-12.0); Platelet Count 260 K/mm3 (150-450); RBC Distribution Width CV 13.7 % (11.6-14.6); RBC Distribution Width SD 41.4 fl (35.1-43.9); Red Blood Count 4.56 M/mm3 (4.6-6.2); White Blood Count 6.3 K/mm3 (4.4-11.0)
[2019-03-22 16:12] LABS: ALB/GLOB Ratio 0.9 RATIO (0.9-2.4); AST(SGOT) 16 U/L (15-37); Alanine Aminotransfer ALT/SGPT 26 U/L (16-61); Albumin, Serum 3.5 g/dL (3.2-5.0); Alkaline Phosphatase 66 U/L (45-117); Anion Gap 7 (5-15); BUN 20 mg/dL (7-18); BUN/Creat Ratio 20.4 RATIO (10-20); Calcium,Total 8.8 mg/dL (8.5-10.1); Chloride 111 mmol/L (98-107); Creatinine, Serum 0.98 mg/dL (0.70-1.30); EST Glomerular Filtration Rate 89 mL/min (>60); Est Glom Filt Rate - Afr Amer 108 mL/min (>60); Glucose 159 mg/dL (74-106); Potassium 4.1 mmol/L (3.5-5.1); Protein, Total 7.5 g/dL (6.4-8.2); Sodium Level 143 mmol/L (136-145)
== END 2019-03-22 18:00 | disposition home or self-care (01) ==
LOC: HHLAB 15:40
PROVIDERS: Family Provider Family Medicine; PCP Family Medicine
DX: I38 Endocarditis, valve unspecified (principal)
CPT/HCPCS: 80053; 85027

== ENCOUNTER → 2019-04-01 15:26 | Outpatient (CLI) | payer BC, MEDICAID, SELFPAY ==
[2019-04-01 16:02] LABS: Hematocrit 41.2 % (40-54); Hemoglobin 13.6 g/dL (13.0-16.5); Mean Corpuscular Hgb 28.4 pg (27.0-32.0); Mean Platelet Vol. 10.2 fl (6.2-12.0); Platelet Count 235 K/mm3 (150-450); RBC Distribution Width CV 14.3 % (11.6-14.6); RBC Distribution Width SD 44.5 fl (35.1-43.9); Red Blood Count 4.79 M/mm3 (4.6-6.2); White Blood Count 4.3 K/mm3 (4.4-11.0)
== END ==
PROVIDERS: Family Provider Family Medicine; PCP Family Medicine
DX: G06.1 Intraspinal abscess and granuloma (principal)
CPT/HCPCS: 36415; 85027

== ENCOUNTER → 2019-04-22 11:36 | Outpatient (CLI) | payer BC, SELFPAY ==
--- NOTE | 2019-04-22 11:39 | RAD_ITS ---
STUDY: X-RAY - LEFT ANKLE REASON FOR EXAM: Male, 43 years old. PAIN, NO NEW INJURY, HX LATERAL FOOT FX TECHNIQUE: 3 view(s) of the ankle. COMPARISON: None. FINDINGS: Normal visualized distal tibia and fibula. Normal medial and lateral malleoli. Normal tibiotalar articulation and ankle mortise. Normal visualized talus and calcaneus. The visualized subtalar, talonavicular, calcaneocuboid and tarsal articulations are normal. The soft tissue structures are unremarkable. RAD/Ankle min 3 Views IMPRESSION: Normal x-ray examination of the ankle. Electronically Signed: Danielle Tapia MD at 9:37 EST Tel , Service support ,
== END ==
PROVIDERS: Family Provider Family Medicine; PCP Family Medicine; Referring Provider Family Medicine; Visit Provider Family Medicine
DX: M25.579 Pain in unspecified ankle and joints of unspecified foot (principal)
CPT/HCPCS: 73610

== ENCOUNTER 2019-04-26 15:52 | Outpatient (RCR) | payer BC, SELFPAY ==
[2019-03-29 18:28] LABS: Hematocrit 40.7 % (40-54); Mean Corp Hgb Conc 31.9 g/dL (32-36); Mean Corpuscular Hgb 27.8 pg (27.0-32.0); Mean Corpuscular Volume 87.2 fL (80-94); Mean Platelet Vol. 10.9 fl (6.2-12.0); Platelet Count 223 K/mm3 (150-450); RBC Distribution Width CV 14.6 % (11.6-14.6); RBC Distribution Width SD 45.4 fl (35.1-43.9); Red Blood Count 4.67 M/mm3 (4.6-6.2); White Blood Count 3.3 K/mm3 (4.4-11.0)
[2019-03-29 18:43] LABS: AST(SGOT) 12 U/L (15-37); Alanine Aminotransfer ALT/SGPT 27 U/L (16-61); Albumin, Serum 3.7 g/dL (3.2-5.0); Alkaline Phosphatase 60 U/L (45-117); Anion Gap 7 (5-15); BUN 12 mg/dL (7-18); BUN/Creat Ratio 16.5 RATIO (10-20); Chloride 107 mmol/L (98-107); Creatinine, Serum 0.73 mg/dL (0.70-1.30); EST Glomerular Filtration Rate 126 mL/min (>60); Est Glom Filt Rate - Afr Amer 153 mL/min (>60); Globulin 3.7 g/dL (2.2-4.2); Glucose 140 mg/dL (74-106); Potassium 3.9 mmol/L (3.5-5.1); Protein, Total 7.4 g/dL (6.4-8.2); Sodium Level 140 mmol/L (136-145)
[2019-04-05 18:12] LABS: Hematocrit 41.8 % (40-54); Hemoglobin 13.9 g/dL (13.0-16.5); Mean Corp Hgb Conc 33.3 g/dL (32-36); Mean Corpuscular Hgb 28.1 pg (27.0-32.0); Mean Corpuscular Volume 84.4 fL (80-94); Mean Platelet Vol. 10.7 fl (6.2-12.0); Platelet Count 250 K/mm3 (150-450); RBC Distribution Width CV 13.9 % (11.6-14.6); RBC Distribution Width SD 42.7 fl (35.1-43.9); Red Blood Count 4.95 M/mm3 (4.6-6.2); White Blood Count 5.2 K/mm3 (4.4-11.0)
[2019-04-05 18:27] LABS: ALB/GLOB Ratio 1.1 RATIO (0.9-2.4); AST(SGOT) 10 U/L (15-37); Alanine Aminotransfer ALT/SGPT 25 U/L (16-61); Albumin, Serum 4.1 g/dL (3.2-5.0); Alkaline Phosphatase 65 U/L (45-117); Anion Gap 6 (5-15); BUN 18 mg/dL (7-18); BUN/Creat Ratio 24.1 RATIO (10-20); Calcium,Total 9.3 mg/dL (8.5-10.1); Chloride 104 mmol/L (98-107); Creatinine, Serum 0.75 mg/dL (0.70-1.30); EST Glomerular Filtration Rate 122 mL/min (>60); Est Glom Filt Rate - Afr Amer 148 mL/min (>60); Globulin 3.6 g/dL (2.2-4.2); Glucose 206 mg/dL (74-106); Potassium 4.2 mmol/L (3.5-5.1); Protein, Total 7.7 g/dL (6.4-8.2); Sodium Level 138 mmol/L (136-145)
[2019-04-12 17:29] LABS: Hematocrit 40.8 % (40-54); Hemoglobin 13.1 g/dL (13.0-16.5); Mean Corp Hgb Conc 32.1 g/dL (32-36); Mean Corpuscular Hgb 27.5 pg (27.0-32.0); Mean Corpuscular Volume 85.5 fL (80-94); Mean Platelet Vol. 11.1 fl (6.2-12.0); Platelet Count 225 K/mm3 (150-450); RBC Distribution Width CV 14.1 % (11.6-14.6); RBC Distribution Width SD 43.8 fl (35.1-43.9); Red Blood Count 4.77 M/mm3 (4.6-6.2); White Blood Count 4.8 K/mm3 (4.4-11.0)
[2019-04-12 17:53] LABS: ALB/GLOB Ratio 1.1 RATIO (0.9-2.4); AST(SGOT) 9 U/L (15-37); Alanine Aminotransfer ALT/SGPT 23 U/L (16-61); Albumin, Serum 3.7 g/dL (3.2-5.0); Alkaline Phosphatase 61 U/L (45-117); Anion Gap 10 (5-15); BUN 18 mg/dL (7-18); BUN/Creat Ratio 25.7 RATIO (10-20); Calcium,Total 8.9 mg/dL (8.5-10.1); Chloride 105 mmol/L (98-107); EST Glomerular Filtration Rate 131 mL/min (>60); Est Glom Filt Rate - Afr Amer 159 mL/min (>60); Globulin 3.5 g/dL (2.2-4.2); Glucose 107 mg/dL (74-106); Potassium 3.9 mmol/L (3.5-5.1); Protein, Total 7.2 g/dL (6.4-8.2); Sodium Level 140 mmol/L (136-145)
[2019-04-19 16:38] LABS: AST(SGOT) 9 U/L (15-37); Alanine Aminotransfer ALT/SGPT 21 U/L (16-61); Albumin, Serum 3.5 g/dL (3.2-5.0); Alkaline Phosphatase 60 U/L (45-117); Anion Gap 6 (5-15); BUN 19 mg/dL (7-18); BUN/Creat Ratio 25.6 RATIO (10-20); Calcium,Total 8.7 mg/dL (8.5-10.1); Chloride 108 mmol/L (98-107); Creatinine, Serum 0.74 mg/dL (0.70-1.30); EST Glomerular Filtration Rate 123 mL/min (>60); Est Glom Filt Rate - Afr Amer 149 mL/min (>60); Globulin 3.6 g/dL (2.2-4.2); Glucose 47 mg/dL (74-106); Potassium 3.6 mmol/L (3.5-5.1); Protein, Total 7.1 g/dL (6.4-8.2); Sodium Level 143 mmol/L (136-145)
[2019-04-19 16:46] LABS: Hematocrit 42.1 % (40-54); Hemoglobin 13.2 g/dL (13.0-16.5); Mean Corp Hgb Conc 31.4 g/dL (32-36); Mean Corpuscular Hgb 27.5 pg (27.0-32.0); Mean Corpuscular Volume 87.7 fL (80-94); Mean Platelet Vol. 10.9 fl (6.2-12.0); Platelet Count 229 K/mm3 (150-450); RBC Distribution Width CV 14.2 % (11.6-14.6); RBC Distribution Width SD 45.2 fl (35.1-43.9); White Blood Count 6.2 K/mm3 (4.4-11.0)
[2019-04-26 16:33] LABS: Hematocrit 40.8 % (40-54); Hemoglobin 13.1 g/dL (13.0-16.5); Mean Corp Hgb Conc 32.1 g/dL (32-36); Mean Corpuscular Hgb 27.2 pg (27.0-32.0); Mean Corpuscular Volume 84.8 fL (80-94); Mean Platelet Vol. 11.2 fl (6.2-12.0); Platelet Count 235 K/mm3 (150-450); RBC Distribution Width CV 13.7 % (11.6-14.6); RBC Distribution Width SD 42.2 fl (35.1-43.9); Red Blood Count 4.81 M/mm3 (4.6-6.2); White Blood Count 5.4 K/mm3 (4.4-11.0)
[2019-04-26 17:00] LABS: ALB/GLOB Ratio 1.1 RATIO (0.9-2.4); AST(SGOT) 12 U/L (15-37); Alanine Aminotransfer ALT/SGPT 27 U/L (16-61); Albumin, Serum 3.6 g/dL (3.2-5.0); Alkaline Phosphatase 61 U/L (45-117); Anion Gap 7 (5-15); BUN 19 mg/dL (7-18); BUN/Creat Ratio 22.3 RATIO (10-20); Calcium,Total 9.2 mg/dL (8.5-10.1); Chloride 105 mmol/L (98-107); Creatinine, Serum 0.85 mg/dL (0.70-1.30); EST Glomerular Filtration Rate 105 mL/min (>60); Est Glom Filt Rate - Afr Amer 127 mL/min (>60); Globulin 3.4 g/dL (2.2-4.2); Glucose 130 mg/dL (74-106); Potassium 4.1 mmol/L (3.5-5.1); Sodium Level 142 mmol/L (136-145)
== END 2019-04-26 18:00 | disposition home or self-care (01) ==
LOC: HHLAB 15:52
PROVIDERS: Family Provider Family Medicine; PCP Family Medicine
DX: Z79.2 Long term (current) use of antibiotics (principal)
CPT/HCPCS: 80053; 85027

== ENCOUNTER 2019-04-29 14:38 | Outpatient (RCR) | payer BC, MEDICAID, SELFPAY ==
[2019-04-29 15:04] LABS: Hematocrit 42.4 % (40-54); Hemoglobin 13.7 g/dL (13.0-16.5); Mean Corp Hgb Conc 32.3 g/dL (32-36); Mean Corpuscular Volume 86.5 fL (80-94); Mean Platelet Vol. 11.1 fl (6.2-12.0); Platelet Count 227 K/mm3 (150-450); RBC Distribution Width CV 13.6 % (11.6-14.6); RBC Distribution Width SD 42.2 fl (35.1-43.9); White Blood Count 5.4 K/mm3 (4.4-11.0)
[2019-04-29 15:20] LABS: Erythrocyte Sedimentation Rate 7 mm/hr (0-15)
== END 2019-04-29 18:00 | disposition home or self-care (01) ==
LOC: HHLAB 14:38
PROVIDERS: Family Provider Family Medicine; PCP Family Medicine
DX: I38 Endocarditis, valve unspecified (principal)
CPT/HCPCS: 85027; 85652; 86140

== ENCOUNTER → 2019-09-24 11:35 | Outpatient (CLI) | payer BC, MEDICAID, SELFPAY ==
[2019-09-24 15:38] LABS: CRP 3.06 mg/L (0.0-3.0)
[2019-09-24 16:04] LABS: Erythrocyte Sedimentation Rate 9 mm/hr (0-15)
== END ==
PROVIDERS: PCP Family Medicine
DX: M46.20 Osteomyelitis of vertebra, site unspecified (principal)
CPT/HCPCS: 36415; 85652; 86140

== ENCOUNTER 2020-03-07 15:02 | Inpatient (IN) | payer BC, MEDICAID, SELFPAY ==
[2020-03-07 15:03] VITALS: BP 152/102; PULSE 102; RESP 16; TEMP 36.6; O2SAT 99; BMI 33.5
--- NOTE | 2020-03-07 15:32 | ED.VISSUMM ---
- ER Visit Summary Date of Service: 03/07/20 Chief Complaint: Left leg cellulitis History of Present Illness: The patient is a 44 M who presents with cellulitis to his left leg that is been getting worse over the past 2 weeks. Patient has been on outpatient antibiotics with no improvement. Patient has completed a course of doxycycline and then was placed on Bactrim and Keflex. Patient had no improvement with this. Patient states his pain is worse with movement and palpation. Patient denies any new paresthesias or weakness. Patient states he does have a history of neuropathy in the toes of his left foot. Patient denies any fevers or chills. Patient states his temperature was 99.8 prior to arrival today. Physical Examination: Vital signs are stable. Patient is afebrile. Patient is in no acute distress. Skin is warm dry. There is erythema and warmth over the anterolateral aspect of the left lower leg. There is no fluctuance. I do not appreciate any abscess formation. Sensation was intact to light touch in all digits of the lower extremity. Pedal pulses were equal bilaterally. There is full range of motion of the lower extremities. Heart was regular rate and rhythm. Lungs are clear and equal bilaterally. Abdomen is soft. Bowel sounds are normal. There is no tenderness. Cranial nerves II through XII are intact. Test Results: CBC and comprehensive metabolic profile were obtained and were essentially within normal limits. Glucose was slightly elevated at 231. Lactate was normal at 1.6. Emergency Department Course and Treatment: Patient was given Zosyn and vancomycin. Patient is feeling better on reevaluation. Given his failure with 2 courses of outpatient antibiotics, I will discuss the case with the hospitalist. He will admit the patient for observation. Patient understood and was agreeable with the plan. All questions were answered. Disposition: Admit for observation Impression: 1. Cellulitis left leg 2. Failed outpatient therapy This note was generated with [employer] dictation software. It may contain incorrect words, spelling, and punctuation that were not noted in review of the chart prior to signing ED Disposition - Plan for ED Patient: Disposition: Acute Care Hospital [facility] Diagnosis: Cellulitis of left lower leg Referrals: Rory Greenfield MD [Primary Care Provider] -
[2020-03-07 16:05] VITALS: BP 154/102; PULSE 97; RESP 16; TEMP 36.6; O2SAT 97
[2020-03-07 16:23] LABS: Absolute Lymphocyte Count 0.94 X10^3/uL (0.83-4.51); Absolute Neutrophil Count 6.4 X10^3/uL (2.0-7.7); Basophil# 0.03 X10^3/uL; Basophil% 0.4 % (0-1); Eosinophil# 0.07 X10^3/uL; Eosinophils% 0.8 % (0-5); Hematocrit 45.3 % (40-54); Hemoglobin 14.8 g/dL (13.0-16.5); Lymphocyte # 0.94 X10^3/ul (4.0); Lymphocyte % 11.3 % (19-41); Mean Corp Hgb Conc 32.7 g/dL (32-36); Mean Corpuscular Hgb 28.1 pg (27.0-32.0); Mean Corpuscular Volume 86.1 fL (80-94); Mean Platelet Vol. 11.5 fl (6.2-12.0); Monocyte# 0.85 X10^3/uL; Monocyte% 10.2 % (0-10); NRBC Flagged by Analyzer 0 % (0-5); Neutrophil # 6.37 X10^3/uL (2.7-7.7); Neutrophil % 76.6 % (47-70); Platelet Count 218 K/mm3 (150-450); RBC Distribution Width CV 12.6 % (11.6-14.6); RBC Distribution Width SD 39.3 fl (35.1-43.9); Red Blood Count 5.26 M/mm3 (4.6-6.2); White Blood Count 8.3 K/mm3 (4.4-11.0)
[2020-03-07 16:36] LABS: ALB/GLOB Ratio 0.8 RATIO (0.9-2.4); AST(SGOT) 5 U/L (15-37); Alanine Aminotransfer ALT/SGPT 17 U/L (16-61); Albumin, Serum 3.6 g/dL (3.2-5.0); Alkaline Phosphatase 83 U/L (45-117); Anion Gap 6 (5-15); BUN 16 mg/dL (7-18); BUN/Creat Ratio 16.2 RATIO (10-20); Calcium,Total 9.2 mg/dL (8.5-10.1); Chloride 102 mmol/L (98-107); Creatinine, Serum 0.99 mg/dL (0.70-1.30); EST Glomerular Filtration Rate 88 mL/min (>60); Est Glom Filt Rate - Afr Amer 106 mL/min (>60); Estimated Creatinine Clearance 119.34 ml/min; Globulin 4.6 g/dL (2.2-4.2); Glucose 231 mg/dL (74-106); Potassium 3.8 mmol/L (3.5-5.1); Protein, Total 8.2 g/dL (6.4-8.2); Sodium Level 135 mmol/L (136-145)
[2020-03-07 16:45] LABS: Lactic Acid 1.6 mmol/L (0.4-1.9)
[2020-03-07 17:00] VITALS: BP 169/106; PULSE 94; RESP 16; TEMP 37; O2SAT 99
--- NOTE | 2020-03-07 17:17 | HP.PCM_ITS ---
Problem List (1) Type 2 diabetes mellitus Status: Chronic Qualifiers: (2) Hypertension Status: Chronic Qualifiers: (3) Intractable back pain Status: Chronic (4) Lumbar radiculopathy Status: Chronic (5) Anxiety Status: Chronic (6) Cellulitis of left lower leg Status: Acute History of Present Illness Date of Admission: 03/07/20 Chief Complaint: left leg erythema The patient is a 44 year old M who was in his normal state of health up until a couple weeks ago where he developed left lower extremity cellulitis. Patient has a butterfly tattoo over the left lateral tib-fib region which is 20 years old. He denies any obvious injury or laceration to that area. He was on doxycycline and then was not getting better than switched over to trimethoprim/sulfamethoxazole and Keflex. Despite this last bout of antib iotics, which he has been actively taking, it is actually gotten worse. Is very tender. Patient is very concerned because he has had cellulitis before that led to infections of his back and heart. In the emergency room, he received Pipracil and/tazobactam and vancomycin. [] Past Medical History Past Medical History (Chronic Problems): Chronic Problems Type 2 diabetes mellitus (Chronic) Hypertension (Chronic) Intractable back pain (Chronic) Lumbar radiculopathy (Chronic) Anxiety (Chronic) Allergies No Known Allergies Allergy (Verified 03/07/20 15:04) Home Medications: Ambulatory Orders Medication Instructions Recorded Bupropion HCl [Bupropion Xl] 300 mg PO QHS 11/19/18 Glimepiride 4 mg PO QHS 11/19/18 Insulin Glargine [Lantus SoloStar 55 units SQ QHS 11/19/18 Pen] Lisinopril [Zestril] 10 mg PO DAILY 11/19/18 metFORMIN HCl [Glucophage] 1,000 mg PO BIDCM 11/19/18 Rosuvastatin Calcium [Crestor] 5 mg PO QHS 02/22/19 Acetaminophen [Tylenol Tablet] 650 mg PO Q6H PRN PRN tab 02/26/19 Amlodipine [Norvasc] 5 mg PO DAILY #30 tab 02/26/19 Diazepam [Valium] 5 mg PO TID PRN PRN #21 tab 02/26/19 Gabapentin [Neurontin] 400 mg PO TID #90 cap 02/26/19 Ibuprofen [Motrin] 600 mg PO Q6H PRN PRN #120 tab 02/26/19 Surgical History: no surgical history, - - Patient denies any prior surgical history. Psychiatric History: Anxiety Smoking Status: Never smoker - *Family History Maternal History Items: Diabetes, Heart Disease Paternal History Items: Diabetes, Heart Disease Review of Systems Constitutional: Reports: Chills, Malaise, Weakness. Denies: Anorexia Eyes: Denies: Blurred vision, Double vision HEENT: Denies: Head Aches, Sinus Congestion, Sinus Drainage Cardiovascular: Denies: Chest Pain, Palpitations Respiratory: Denies: Cough, Shortness of breath at rest, Sputum production Gastrointestinal: Denies: Abdominal Pain, Nausea, Vomiting Genitourinary: Denies: Dysuria Musculoskeletal: Reports: Leg Pain. Denies: Arm Pain Skin: Reports: - - Erythema over his left lateral leg. Comment: All review of systems were negative except as mentioned above in the history of present illness and the other review of systems. VTE Information - Inpt Only VTE Present on Admission: No VTE Mechan Device Prophylaxis: None VTE Pharm Prophylaxis ordered?: Yes Patient Problems: Active and Suspected Problems Cellulitis of left lower leg (Acute) - Physical Exam Vitals/I&O's: Vital Signs Temp Pulse Resp BP Pulse Ox 36.6 C 97 16 154/102 H 97 03/07/20 16:05 03/07/20 16:05 03/07/20 16:05 03/07/20 16:05 03/07/20 16:05 Oxygen Delivery Method Room Air Weight: 124.738 kg Body Mass Index (BMI) 33.5 General: Alert, Cooperative, No apparent distress HEENT: Atraumatic, Normocephalic Oral: Moist Mucosa, No Gingival or Mucosal Lesions/ Ulcerations Neck: No Nodes, Thyroid Normal Size and Texture Lungs: Clear to auscultation, Normal air movement, No rhonchi, No wheeze, No rales Cardiovascular: Regular rate, Regular Rhythm, Normal S1, Normal S2, No murmurs Abdomen: Bowel Sounds Present, Soft, Non Tender, Non-Distended, No Hepato- splenomegaly Extremities: No edema, - Skin: - - Market erythema over his left lateral tib-fib region overlying an area with a butterfly tattoo. Exquisitely tender to palpation. Slightly boggy. Cannot appreciate any definitive fluctuance. Musculoskeletal: No Tenderness to Palpation of Joints or Extremities, No Muscle Wasting Psych/Mental Status: Normal Affect, Appropriate Laboratory Results 03/07/20 15:50: WBC 8.3, RBC 5.26, Hgb 14.8, Hct 45.3, MCV 86.1, MCH 28.1, MCHC 32.7, RDW Std Deviation 39.3, RDW Coeff of Chandni 12.6, Plt Count 218, MPV 11.5, Immature Gran % (Auto) 0.700, Neut % (Auto) 76.6 H, Lymph % (Auto) 11.3 L, [place] % (Auto) 10.2 H, Eos % (Auto) 0.8, Baso % (Auto) 0.4, Absolute Neuts (auto) 6.4, Absolute Lymphs (auto) 0.94, Nucleated RBC % 0 03/07/20 15:50: Sodium 135 L, Potassium 3.8, Chloride 102, Carbon Dioxide 27.0, Anion Gap 6, BUN 16, Creatinine 0.99, Estim Creat Clear Calc 119.34, Est GFR (MDRD) Af Amer 106, Est GFR (MDRD) Non-Af 88, BUN/Creatinine Ratio 16.2, Glucose 231 H, Calcium 9.2, Total Bilirubin 1.10 H, AST 5 L, ALT 17, Alkaline Phosphatase 83, Total Protein 8.2, Albumin 3.6, Globulin 4.6 H, Albumin/Globulin Ratio 0.8 L 03/07/20 15:50: Lactic Acid 1.6 Current Medications Vancomycin HCl 1,500 mg/ (Sodium Chloride) 530 mls @ 250 mls/hr IV X1 ONE Stop: 03/07/20 18:07 Last Admin: 03/07/20 16:19 Dose: 250 mls/hr Documented by: Assessment/Plan All Active Problems Cellulitis of left lower leg (Acute) 1. Left lower extremity cellulitis: Patient has failed 2 rounds of antibiotics. First being on doxycycline and the second being trimethoprim/sulfamethoxazole and Keflex. Patient ordered vancomycin and Pipracil and/tazobactam in the emergency room and will continue on the floor. I am concerned that there could be an underlying abscess which could explain why with the antibiotics he did receive, that it did not get better. Will check a CAT scan to see if there is any abscess. If abscess is noted then would need consultation to either plastics or orthopedics for I&D. This was explained to the patient. Additionally, no concern for necrotizing fasciitis at this time. 2. Diabetes mellitus type 2: We will continue with Lantus. Hold off on Metformin with the IV contrast will proceed with CAT scan. Sliding scale insulin 3. Hypertension: Continue with lisinopril and amlodipine. 4. VTE prophylaxis: Moderate risk. Enoxaparin. Inpatient E&M: 03099 In Hosp L3
[2020-03-07 17:24] VITALS: BP 169/106; PULSE 94; RESP 16; TEMP 37; O2SAT 99
--- NOTE | 2020-03-07 18:14 | CT_ITS ---
STUDY: CT LOWER LEG WITH CONTRAST, LEFT REASON FOR EXAM: Male, 44 years old. Left lower lateral leg cellulitis x 2 weeks, has tattoo (20 years) near area of redness. Hx diabetes, hypertension. RADIATION DOSAGE (If Supplied By Facility): CTDIvol = ( 15.35 ) mGy, DLP = ( 811.99 ) mGycm. Individualized dose optimization techniques were used for this CT.? TECHNIQUE: Axial CT images were obtained after IV administration of 100 cc of ISOVUE-370 contrast, followed by sagittal and coronal reconstructions. COMPARISON: None. FINDINGS: Diffuse cellulitis. No visible abscess. No CT evidence of osteomyelitis. No intramuscular lesions are identified. The visualized vasculature is intact. Knee and ankle joints are intact. CT/Extremity Lower WITH Contrast IMPRESSION: Diffuse cellulitis. No visible abscess. No CT evidence of osteomyelitis. Electronically Signed: Guerrero Hernandez MD at 19:48 EST Tel , Service support ,
--- NOTE | 2020-03-07 18:44 | PCM.RX.CS ---
Consult Pharmacy has been consulted to manage selected antiobiotic: Vancomycin Type of Consult: Follow-up Suspected Infection: Skin/Soft tissue Prior Doses of Antibiotics Received/Current Regimen: received 1500mg x1 in E.R. starting at 16:19 today Labs: Sodium 135 mmol/L (136-145) L 03/07/20 15:50 Potassium 3.8 mmol/L (3.5-5.1) 03/07/20 15:50 Chloride 102 mmol/L (98-107) 03/07/20 15:50 Carbon Dioxide 27.0 mmol/L (21.0-32.0) 03/07/20 15:50 Anion Gap 6 (5-15) 03/07/20 15:50 BUN 16 mg/dL (7-18) 03/07/20 15:50 Creatinine 0.99 mg/dL (0.70-1.30) 03/07/20 15:50 Est GFR (MDRD) Af Amer 106 mL/min (>60) 03/07/20 15:50 Est GFR (MDRD) Non-Af 88 mL/min (>60) 03/07/20 15:50 BUN/Creatinine Ratio 16.2 RATIO (-) 03/07/20 15:50 Glucose 231 mg/dL (74-106) H 03/07/20 15:50 Weight used for dosin.7 kg Estimated Creatinine Clearance: >100ml/min Goal Trough: 10-15 mcg/mL Pharmacy Plan for Drug Dosing: The patient already got an initial dose of 1500mg in E.R.. Will continue dosing with 1750mg IV q12h. Since an initial standard dose was ordered upon admission and since that dose would've been 2000mg based on the patient's weight, instead of giving another 500mg tonight, will just start the 1750mg q12h dosing about 9 hours after the E.R. dose instead of 12 hours. A trough will be ordered to be drawn before the 4th total dose. Pharmacy Service will continue to monitor and adjust dosing as required. Follow-Up Labs: Trough Vancomycin Labs to be done on [date and time ordered]: 03/09/20 00:30
[2020-03-07] MEDS: oxyCODONE 5 MG Tablet 10 MG PO ×2 (19:00→23:21)
[2020-03-07 19:02] VITALS: BMI 33.8
[2020-03-07 19:06] VITALS: BMI 33.8
[2020-03-07 19:15] VITALS: BP 159/96; PULSE 88; RESP 16; TEMP 37.2; O2SAT 99
[2020-03-07 21:11] LABS: Bedside Glucose 185 mg/dL (70-110)
[2020-03-08] VITALS (16 sets, daily range): BP systolic 138–171; BP diastolic 74–98; PULSE 68–95; RESP 16–18; TEMP 36.4–37.7; O2SAT 93–100; BMI 33.8
[2020-03-08] MEDS: Metoprolol Tartrate 25 MG Tablet PO ×3 (00:10→21:27)
[2020-03-08] MEDS: TICAGRELOR 90 MG TABLET PO (00:11)
[2020-03-08] MEDS: oxyCODONE 5 MG Tablet 10 MG PO ×2 (05:33→09:24)
[2020-03-08] MEDS: Ibuprofen 400 MG Tablet PO (05:33)
[2020-03-08 05:34] LABS: Absolute Lymphocyte Count 1.01 X10^3/uL (0.83-4.51); Absolute Neutrophil Count 4.7 X10^3/uL (2.0-7.7); Basophil# 0.03 X10^3/uL; Basophil% 0.4 % (0-1); Eosinophil# 0.11 X10^3/uL; Eosinophils% 1.6 % (0-5); Hematocrit 40.8 % (40-54); Hemoglobin 13.3 g/dL (13.0-16.5); Lymphocyte # 1.01 X10^3/ul (4.0); Lymphocyte % 14.8 % (19-41); Mean Corp Hgb Conc 32.6 g/dL (32-36); Mean Corpuscular Hgb 27.9 pg (27.0-32.0); Mean Corpuscular Volume 85.5 fL (80-94); Mean Platelet Vol. 11.1 fl (6.2-12.0); Monocyte# 0.96 X10^3/uL; Monocyte% 14.1 % (0-10); NRBC Flagged by Analyzer 0 % (0-5); Neutrophil # 4.66 X10^3/uL (2.7-7.7); Neutrophil % 68.4 % (47-70); Platelet Count 183 K/mm3 (150-450); RBC Distribution Width CV 12.6 % (11.6-14.6); RBC Distribution Width SD 39.4 fl (35.1-43.9); Red Blood Count 4.77 M/mm3 (4.6-6.2); White Blood Count 6.8 K/mm3 (4.4-11.0)
[2020-03-08 05:55] LABS: Anion Gap 7 (5-15); BUN 16 mg/dL (7-18); BUN/Creat Ratio 19.1 RATIO (10-20); Calcium,Total 7.9 mg/dL (8.5-10.1); Chloride 105 mmol/L (98-107); Creatinine, Serum 0.84 mg/dL (0.70-1.30); EST Glomerular Filtration Rate 106 mL/min (>60); Est Glom Filt Rate - Afr Amer 129 mL/min (>60); Estimated Creatinine Clearance 140.65 ml/min; Glucose 173 mg/dL (74-106); Potassium 3.7 mmol/L (3.5-5.1); Sodium Level 136 mmol/L (136-145)
[2020-03-08 06:45] LABS: Bedside Glucose 180 mg/dL (70-110)
--- NOTE | 2020-03-08 07:02 | PCM.PN.HOSP ---
Patient Problems: Active and Suspected Problems Cellulitis of left lower leg (Acute) Subjective: Patient overnight with ongoing discomfort to the left lower extremity with focal region of cellulitis and still some very focal swelling around previous tattoo greater than 20 years old. Patient denies any recent trauma to the region. Per discussion with plastic surgery, Dr. Allen review of patient's prior records noted significant infections before with possible bacteremia from [place]. Given concerns on examination despite CT with no obvious abscess requested surgery evaluation. Patient denies fevers, chills, nausea, emesis, abdominal pain, chest pain or dyspnea. Objective: Physical Examination: General: awake, alert, oriented x 3 and cooperative, seated upright in the medical surgical bed in no apparent distress. Skin: normal color, turgor, no icterus, cyanosis except notable left lower extremity lateral region on the distal calf at the location of a prior remote tattoo with erythema, warmth to touch, edema and some concern for fluctuant region. HEENT: AT/NC, EOMI, PERRLA, dry MM, no carotid bruits or JVD noted. Lungs: CTA bilaterally, moderate effort, mild decrease BL bases, no rales, ronchi or wheezing. Heart: Regular rate and rhythm; no gallop, rub audible. Abdomen: soft, BS, NTTP, ND, normal BS, no HSM. Extremities: no cyanosis, no clubbing, see skin, lower extremity edema is noted. Neurological: patient awake, alert, oriented x 3; cognitive function intact; pupils equally reactive to light and accomodation; cranial nerves II-XII grossly normal, moving all 4 extremities, no focal deficits, strength mildly global decrease given acute presentation. Psychiatric: affect appears normal, no acute evidence of depressive or anxiety feelings. Vitals/I&O's: Vital Signs Temp Pulse Resp BP Pulse Ox 98.9 F 75 16 140/74 H 98 03/08/20 05:25 03/08/20 05:25 03/08/20 05:25 03/08/20 05:25 03/08/20 05:25 Oxygen Delivery Method Room Air Weight: 278 lb 0.046 oz Body Mass Index (BMI) 33.8 Intake and Output for Last 24 Hours 03/06/20 03/07/20 03/08/20 23:59 23:59 23:59 Intake Total 930 / 930 705 / 705 Output Total 750 / 750 Balance 180 / 180 705 / 705 Laboratory Results 03/07/20 15:50: WBC 8.3, RBC 5.26, Hgb 14.8, Hct 45.3, MCV 86.1, MCH 28.1, MCHC 32.7, RDW Std Deviation 39.3, RDW Coeff of [place] 12.6, Plt Count 218, MPV 11.5, Immature Gran % (Auto) 0.700, Neut % (Auto) 76.6 H, Lymph % (Auto) 11.3 L, [place] % (Auto) 10.2 H, Eos % (Auto) 0.8, Baso % (Auto) 0.4, Absolute Neuts (auto) 6.4, Absolute Lymphs (auto) 0.94, Nucleated RBC % 0 03/07/20 15:50: Sodium 135 L, Potassium 3.8, Chloride 102, Carbon Dioxide 27.0, Anion Gap 6, BUN 16, Creatinine 0.99, Estim Creat Clear Calc 119.34, Est GFR (MDRD) Af Amer 106, Est GFR (MDRD) Non-Af 88, BUN/Creatinine Ratio 16.2, Glucose 231 H, Calcium 9.2, Total Bilirubin 1.10 H, AST 5 L, ALT 17, Alkaline Phosphatase 83, Total Protein 8.2, Albumin 3.6, Globulin 4.6 H, Albumin/Globulin Ratio 0.8 L 03/07/20 15:50: Lactic Acid 1.6 03/07/20 21:06: POC Glucose 185 H 03/08/20 05:03: WBC 6.8, RBC 4.77, Hgb 13.3, Hct 40.8, MCV 85.5, MCH 27.9, MCHC 32.6, RDW Std Deviation 39.4, RDW Coeff of [place] 12.6, Plt Count 183, MPV 11.1, Immature Gran % (Auto) 0.700, Neut % (Auto) 68.4, Lymph % (Auto) 14.8 L, [place] % (Auto) 14.1 H, Eos % (Auto) 1.6, Baso % (Auto) 0.4, Absolute Neuts (auto) 4.7, Absolute Lymphs (auto) 1.01, Nucleated RBC % 0 03/08/20 05:03: Sodium 136, Potassium 3.7, Chloride 105, Carbon Dioxide 24.0, Anion Gap 7, BUN 16, Creatinine 0.84, Estim Creat Clear Calc 140.65, Est GFR (MDRD) Af Amer 129, Est GFR (MDRD) Non-Af 106, BUN/Creatinine Ratio 19.1, Glucose 173 H, Calcium 7.9 L 03/08/20 06:42: POC Glucose 180 H Current Medications Acetaminophen (Acetaminophen 325 Mg Tablet) 650 mg PO Q6H PRN PRN PRN Reason: Pain Score 1-10/Temp > 100.7 F Aspirin (Aspirin E.C. 81 Mg Tablet) 81 mg PO DAILY@0800 [facility] Atorvastatin Calcium (Atorvastatin Calcium 40 Mg Tablet) 40 mg PO QHS [facility] Bupropion HCl (Bupropion (Xl) 300 Mg Tablet.Xl) 300 mg PO QHS [facility] Clonazepam (Clonazepam 0.5 Mg Tablet) 0.5 mg PO BID [facility] Enoxaparin Sodium (Enoxaparin 40 Mg/0.4 Ml Syringe) 40 mg SC DAILY [facility] Vancomycin IV Pharmacy to Dose (1 ea/ Sodium Chloride) 500 mls @ 250 mls/hr IV X1 PRN; Protocol PRN Reason: Rx to Dose Piperacillin Sod/Tazobactam (Sod 3.375 gm/ Sodium Chloride) 50 mls @ 12.5 mls/hr IV Q8 [facility] Last Admin: 03/08/20 05:27 Dose: 12.5 mls/hr Documented by: Vancomycin HCl 1,750 mg/ (Sodium Chloride) 535 mls @ 250 mls/hr IV Q12H [facility] Last Infusion: 03/08/20 03:15 Dose: Infused Documented by: Ibuprofen (Ibuprofen 400 Mg Tablet) 400 mg PO Q4H PRN PRN PRN Reason: Pain Score 1-10/Temp > 100.7 F Last Admin: 03/08/20 05:33 Dose: 400 mg Documented by: Insulin Human Lispro (Insulin Lispro 100 Unit/Ml Insuln.Pen) 0 unit SC TIDAC [facility]; Protocol Lisinopril (Lisinopril 10 Mg Tablet) 10 mg PO DAILY [facility] Metoprolol Tartrate (Metoprolol Tartrate 25 Mg Tablet) 25 mg PO BID [facility] Last Admin: 03/08/20 00:10 Dose: 25 mg Documented by: Non-Formulary Medication (Insulin Lispro) 1.4 unit SC UD [facility] Last Admin: 03/08/20 02:24 Dose: Not Given Documented by: Nutritional Formula (Lactose Free) (Glucerna Shake 120 Ml Liquid) 120 ml PO TIDCM [facility] Ondansetron HCl (Ondansetron 4 Mg/2 Ml Vial) 4 mg IV Q8H PRN PRN PRN Reason: NAUSEA/VOMITING Oxycodone HCl (Oxycodone 5 Mg Tablet) 5 mg PO Q4H PRN PRN PRN Reason: Pain Score 4-5 Oxycodone HCl (Oxycodone 5 Mg Tablet) 10 mg PO Q4H PRN PRN PRN Reason: Pain Score 6-10 Last Admin: 03/08/20 05:33 Dose: 10 mg Documented by: Sodium Chloride (0.9% Saline Lock 10 Ml Syringe) 10 - 40 ml IV UD PRN PRN Reason: SALINE FLUSH Ticagrelor (Ticagrelor 90 Mg Tablet) 90 mg PO BID [facility] Last Admin: 03/08/20 00:11 Dose: 90 mg Documented by: STROKE Vital Signs/Narrative: Vital Signs Temp Pulse Resp BP Pulse Ox 03/08/20 05:25 98.9 F 75 16 140/74 H 98 Medical Necessity - Tobacco Use Smoking Status: Former smoker Tobacco Use: Cigarettes, Chew Assessment/Plan All Active Problems Cellulitis of left lower leg (Acute) The patient is a 44 y/o F w/ PMHx: Anxiety, Obesity, Diabetes mellitus type II, HTN, Chronic back pain with radiculopathy who presents to the [facility] ED on 03/07/20 with history of left lower extremity redness with no recent injury with outpatient treatment with doxycycline with no improvement with then transition to Bactrim and Keflex but despite ongoing antibiotic therapy patient with increased redness, swelling, pain. 1. Acute LL Extremity Cellulitis with concern for developing abscess, failed outpatient antibiotic therapies: ED evaluation with CT left lower extremity with diffuse cellulitis with no visible abscess, no significant WBC elevation or left shift, admitted to medical surgical floor, maintained on IV vancomycin and Zosyn, requesting MRSA screen, given concern for underlying abscess despite CT findings as ballotable and focal region requesting plastic surgery evaluation, would expect to progress to the OR and if so will await wound culture, maintain on broad-spectrum antibiotic therapy, requested duplex ultrasound with no obvious evidence of DVT, continue affected extremity elevation above heart when seated and in bed, monitor erythema outline with VS checks. 2. Diabetes mellitus type II with radiculopathy: Hold oral home regimen, continue home insulin regimen, ADA diet unless decision for operative intervention, awaiting evaluation for plastic surgery, accu checks w/ ISS continue home gabapentin regimen. 3. Hypertension: Continue home regimen including lisinopril, amlodipine, PRN hydralazine. 4. Hyperlipidemia: Continue home statin regimen. 5. Anxiety: We will continue patient home bupropion and Valium regimen. 6. DVT prophylaxis: SCDs, hold Lovenox for possible operative intervention. Inpatient E&M: [id number] [facility] Hosp L3
--- NOTE | 2020-03-08 08:12 | NURSING ---
BS 180, patient gave himself 9.5 u from his insulin pump to bolus for carb count with breakfast.
--- NOTE | 2020-03-08 08:15 | VDLE_ITS ---
Reason For Study: Pain Procedure LEFT This is a venous duplex using B-mode, color GSV is normal. flow and spectral Doppler. CFV is compressible, spontaneous, phasic, Exam performed portable in patient room. competent, and demonstrates normal A preliminary report was called and/or faxed augmentation. to MS3 RN. FV is compressible, spontaneous, phasic, competent and demonstrates normal augmentation. POP V is compressible, spontaneous, phasic, competent and demonstrates normal augmentation. T/P Trunk is compressible. PTV is compressible. LT PerV is compressible. Interpretation Summary There is no evidence of left lower extremity deep vein thrombosis. Left great saphenous vein appears patent and compressible segmentally. Ordering Physician: Jade Sibley Referring Physician: Rory Greenfield Performed By: Macey Ramos RVT
[2020-03-08 09:02] LABS: Hemoglobin A1c 9.9 % (3.8-5.6)
--- NOTE | 2020-03-08 09:40 | NURSING ---
Spoke with No in regarding patient's insulin pump. Made her aware that the patient gets 1.4 units/hr basal. Dr. Mckeon was notified of this as well and states that we can leave the pump in place for now. Patient made aware of same.
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
[2020-03-08] MEDS: clonazePAM 0.5 MG Tablet PO ×2 (11:25→21:27)
--- NOTE | 2020-03-08 11:27 | PCM.CONS.GEN ---
Reason for Consult Date of Consultation: 03/08/20 Reason for Consultation: Diabetic abscess left lateral leg. REFERRING PHYSICIAN: Dr. Sibley. SLITTER OPERATOR: Dr. Allen. History of Present Illness: The patient is a 44 year old M presented to the ED with increasing pain and redness and swelling left lateral leg. Patient has a tattoo in the area of his symptomatology that was done 20 years ago. He denies any trauma to that area. 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 He was placed on oral antibiotic therapy (Doxycycline and then Bactrim and Keflex), and his symptomatology worsened which prompted his visit to the ED. In the emergency room, he received Pipracil and/tazobactam and vancomycin. A CT was done which showed diffuse cellulitis. No visible abscess. No CT evidence of osteomyelitis. A venous doppler was also done which was negative for DVT. Patient has concerns because he had a Streptococcal infection last year that spread to his spine and heart. He sees an Infectious Diseases specialist periodically for close monitoring. I was asked to evaluate this patient for surgical options for treatment. Past Medical History Past Medical History (Chronic Problems): Chronic Problems Former smoker (Chronic) History of streptococcal infection (Chronic) Type 2 diabetes mellitus (Chronic) Hypertension (Chronic) Intractable back pain (Chronic) Lumbar radiculopathy (Chronic) Anxiety (Chronic) Allergies No Known Allergies Allergy (Verified 03/07/20 15:04) Home Medications: Ambulatory Orders Medication Instructions Recorded Lisinopril [Zestril] 10 mg PO DAILY 11/19/18 Acetaminophen [Tylenol Extra 1,000 mg PO DAILY PRN PRN 03/07/20 Strength] Aspirin E.C. [Ecotrin] 81 mg PO DAILY@0800 03/07/20 Atorvastatin Calcium 40 mg PO QHS 03/07/20 Bupropion HCl [Bupropion Xl] 300 mg PO QHS 03/07/20 Cephalexin [Keflex] 500 mg PO 4X/DAY 03/07/20 Clonazepam 0.5 mg PO BID 03/07/20 Insulin Lispro [Humalog] 1.4 unit IN CONT 03/07/20 Metoprolol Tartrate 25 mg PO BID 03/07/20 Smz/Tmp Ds [Bactrim Ds] 1 tab PO BID 03/07/20 Ticagrelor [Brilinta] 90 mg PO BID 03/07/20 Surgical History: no surgical history, - - Patient denies any prior surgical history. Psychiatric History: Anxiety Lives: Spouse/ Significant Other Smoking Status: Former smoker Tobacco Use: Cigarettes - in the past, Chew - in the past Alcohol: Rare Drugs: None - *Family History Maternal History Items: Diabetes, Heart Disease Paternal History Items: Diabetes, Heart Disease Review of Systems Comment: Constitutional: Reports: Chills, Malaise, Weakness. Denies: Anorexia. Eyes: Denies: Blurred vision, Double vision. HEENT: Denies: Head Aches, Sinus Congestion, Sinus Drainage. Cardiovascular: Denies: Chest Pain, Palpitations. Respiratory: Denies: Cough, Shortness of breath at rest, Sputum production. Gastrointestinal: Denies: Abdominal Pain, Nausea, Vomiting. Genitourinary: Denies: Dysuria. Musculoskeletal: Reports: Leg Pain. Denies: Arm Pain. Skin: Reports: - - Erythema over his left lateral leg. Patient Problems: Active and Suspected Problems Cellulitis of left lower leg (Acute) - Physical Exam Vitals/I&O's: General: Alert, Cooperative. He seemed a little apprehensive. HEENT: PERRL. EOMI. Oral: Moist Mucosa. Neck: Supple nontender. No cervical adenopathy. Lungs: Clear to auscultation. Cardiovascular: Regular rate, Regular Rhythm. Abdomen: Soft, Non-Distended. Extremities: - - Marked erythema over his left lateral leg overlying a tattoo. Exquisitely tender to palpation. Firm. Measures 7 x 6 cm. Left leg feels warmer than the right leg. Mild swelling present. No inguinal adenopathy. Psych/Mental Status: Normal Affect, Appropriate Vital Signs Temp Pulse Resp BP Pulse Ox 97.5 F L 76 18 145/92 H 98 03/08/20 09:38 03/08/20 09:38 03/08/20 09:38 03/08/20 09:38 03/08/20 09:38 Oxygen Delivery Method Room Air Weight: 278 lb 0.046 oz Body Mass Index (BMI) 33.8 Intake and Output for Last 24 Hours 03/06/20 03/07/20 03/08/20 23:59 23:59 23:59 Intake Total 930 / 930 755 / 755 Output Total 750 / 750 Balance 180 / 180 755 / 755 Laboratory Results 03/07/20 15:50: WBC 8.3, RBC 5.26, Hgb 14.8, Hct 45.3, MCV 86.1, MCH 28.1, MCHC 32.7, RDW Std Deviation 39.3, RDW Coeff of [place] 12.6, Plt Count 218, MPV 11.5, Immature Gran % (Auto) 0.700, Neut % (Auto) 76.6 H, Lymph % (Auto) 11.3 L, [place] % (Auto) 10.2 H, Eos % (Auto) 0.8, Baso % (Auto) 0.4, Absolute Neuts (auto) 6.4, Absolute Lymphs (auto) 0.94, Nucleated RBC % 0 03/07/20 15:50: Sodium 135 L, Potassium 3.8, Chloride 102, Carbon Dioxide 27.0, Anion Gap 6, BUN 16, Creatinine 0.99, Estim Creat Clear Calc 119.34, Est GFR (MDRD) Af Amer 106, Est GFR (MDRD) Non-Af 88, BUN/Creatinine Ratio 16.2, Glucose 231 H, Calcium 9.2, Total Bilirubin 1.10 H, AST 5 L, ALT 17, Alkaline Phosphatase 83, Total Protein 8.2, Albumin 3.6, Globulin 4.6 H, Albumin/Globulin Ratio 0.8 L 03/07/20 15:50: Lactic Acid 1.6 03/07/20 21:06: POC Glucose 185 H 03/08/20 05:03: WBC 6.8, RBC 4.77, Hgb 13.3, Hct 40.8, MCV 85.5, MCH 27.9, MCHC 32.6, RDW Std Deviation 39.4, RDW Coeff of [place] 12.6, Plt Count 183, MPV 11.1, Immature Gran % (Auto) 0.700, Neut % (Auto) 68.4, Lymph % (Auto) 14.8 L, [place] % (Auto) 14.1 H, Eos % (Auto) 1.6, Baso % (Auto) 0.4, Absolute Neuts (auto) 4.7, Absolute Lymphs (auto) 1.01, Nucleated RBC % 0 03/08/20 05:03: Sodium 136, Potassium 3.7, Chloride 105, Carbon Dioxide 24.0, Anion Gap 7, BUN 16, Creatinine 0.84, Estim Creat Clear Calc 140.65, Est GFR (MDRD) Af Amer 129, Est GFR (MDRD) Non-Af 106, BUN/Creatinine Ratio 19.1, Glucose 173 H, Calcium 7.9 L 03/08/20 05:03: Hemoglobin A1c 9.9 H 03/08/20 06:42: POC Glucose 180 H 03/08/20 07:35: MRSA (PCR) Pending Diagnostic Data Lower Extremity CT 03/07/20 18:14 IMPRESSION: Diffuse cellulitis. No visible abscess. No CT evidence of osteomyelitis. Electronically Signed: Guerrero Hernandez MD at 19:48 EST Tel , Service support , Current Medications Acetaminophen (Acetaminophen 325 Mg Tablet) 650 mg PO Q6H PRN PRN PRN Reason: Pain Score 1-10/Temp > 100.7 F Al Hydroxide/Mg Hydroxide (Mag Hydrox/Al Hydrox/Simeth 30 Ml Udc) 30 ml PO Q6H PRN PRN PRN Reason: Gastric Burning Aspirin (Aspirin E.C. 81 Mg Tablet) 81 mg PO DAILY@0800 [facility] Last Admin: 03/08/20 09:42 Dose: Not Given Documented by: Atorvastatin Calcium (Atorvastatin Calcium 40 Mg Tablet) 40 mg PO QHS [facility] Bisacodyl (Bisacodyl 5 Mg Tablet) 10 mg PO DAILY PRN PRN PRN Reason: Constipation Bupropion HCl (Bupropion (Xl) 300 Mg Tablet.Xl) 300 mg PO QHS [facility] Clonazepam (Clonazepam 0.5 Mg Tablet) 0.5 mg PO BID [facility] Last Admin: 03/08/20 11:25 Dose: 0.5 mg Documented by: Docusate Sodium (Docusate Sodium 100 Mg Capsule) 200 mg PO BID PRN PRN PRN Reason: Constipation Enoxaparin Sodium (Enoxaparin 40 Mg/0.4 Ml Syringe) 40 mg SC DAILY [facility] Last Admin: 03/08/20 09:42 Dose: Not Given Documented by: Vancomycin IV Pharmacy to Dose (1 ea/ Sodium Chloride) 500 mls @ 250 mls/hr IV X1 PRN; Protocol PRN Reason: Rx to Dose Piperacillin Sod/Tazobactam (Sod 3.375 gm/ Sodium Chloride) 50 mls @ 12.5 mls/hr IV Q8 [facility] Last Infusion: 03/08/20 09:27 Dose: Infused Documented by: Vancomycin HCl 1,750 mg/ (Sodium Chloride) 535 mls @ 250 mls/hr IV Q12H [facility] Last Infusion: 03/08/20 03:15 Dose: Infused Documented by: Ibuprofen (Ibuprofen 400 Mg Tablet) 400 mg PO Q4H PRN PRN PRN Reason: Pain Score 1-10/Temp > 100.7 F Last Admin: 03/08/20 05:33 Dose: 400 mg Documented by: Insulin Human Lispro (Insulin Lispro 100 Unit/Ml Insuln.Pen) 0 unit SC TIDAC [facility]; Protocol Lisinopril (Lisinopril 10 Mg Tablet) 10 mg PO DAILY [facility] Metoprolol Tartrate (Metoprolol Tartrate 25 Mg Tablet) 25 mg PO BID [facility] Last Admin: 03/08/20 09:00 Dose: 25 mg Documented by: Morphine Sulfate (Morphine 2 Mg/Ml Syringe) 2 - 4 mg IV Q3H PRN PRN PRN Reason: Pain Score 6-10 Morphine Sulfate (Morphine 2 Mg/Ml Syringe) 1 - 2 mg IV Q4H PRN PRN PRN Reason: Pain Score 4-5 Non-Formulary Medication (Insulin Lispro) 1.4 unit SC UD [facility] Last Admin: 03/08/20 02:24 Dose: Not Given Documented by: Nutritional Formula (Lactose Free) (Glucerna Shake 120 Ml Liquid) 120 ml PO TIDCM [facility] Last Admin: 03/08/20 09:42 Dose: Not Given Documented by: Ondansetron HCl (Ondansetron 4 Mg/2 Ml Vial) 4 mg IV Q8H PRN PRN PRN Reason: NAUSEA/VOMITING Oxycodone HCl (Oxycodone 5 Mg Tablet) 5 mg PO Q4H PRN PRN PRN Reason: Pain Score 4-5 Oxycodone HCl (Oxycodone 5 Mg Tablet) 10 mg PO Q4H PRN PRN PRN Reason: Pain Score 6-10 Last Admin: 03/08/20 09:24 Dose: 10 mg Documented by: Polyethylene Glycol (Polyethylene Glycol 3350 17 Gm Packet) 17 gm PO DAILY [facility] Last Admin: 03/08/20 09:42 Dose: Not Given Documented by: Prochlorperazine Edisylate (Prochlorperazine 10 Mg/2 Ml Vial) 10 mg IV Q6H PRN PRN PRN Reason: Nausea/Vomiting Sodium Chloride (0.9% Saline Lock 10 Ml Syringe) 10 - 40 ml IV UD PRN PRN Reason: SALINE FLUSH Ticagrelor (Ticagrelor 90 Mg Tablet) 90 mg PO BID [facility] Last Admin: 03/08/20 09:42 Dose: Not Given Documented by: Zolpidem Tartrate (Zolpidem Tartrate 5 Mg Tablet) 5 mg PO QHS PRN PRN PRN Reason: insomnia Assessment/Plan All Active Problems Open wound of left lower leg with complication (Acute) Abscess of left lower leg (Acute) Cellulitis of left lower leg (Acute) 1. Diabetic abscess left lateral leg. 2. Diabetes mellitus. 3. 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 4. Former smoker. CT reviewed. There was no demonstrated abscess. However on exam, there is an area of firmness and increased tenderness on the lateral aspect left leg. I am concerned with his diabetes about an abscess developing that can progress to a potential necrotizing process involving muscle and fascia. He has a history of a previous Streptococcal infection that spread to his spine and heart. He is currently on Vancomycin and Zosyn and will continue them. Recommend operative intervention today urgently and proceed with surgical preparation left lateral leg with incision and drainage and excisional debridement diabetic abscess. Surgery would be done under general anesthesia. Will send tissue to Pathology for analysis and to Microbiology for culture. A positive culture would necessitate antibiotic therapy. Since his Streptococcal infection, he states he has periodically seen an Infectious Diseases specialist for close monitoring. Depending on what is found at surgery, he may benefit from Infectious Diseases evaluation. Will leave the wound open and proceed with wound care with the VAC. After discharge, he will [facility]. If there is a plateau in the healing process, can proceed with delayed closure with skin grafting. Patient understands that the abscess is directly over a tattoo from several years ago and it would be removed. Patient was informed of the risks and complications of the procedure including alternatives to surgery. These were discussed with the patient personally. Patient voices understanding and wishes to proceed. He understands that if surgery is delayed for the next 1-2 days, he is at risk for worsening infection which potentially can be life threatening and limb threatening. He voices understanding. Procedure Criteria Procedure Type: Elective COVID Risk Discussion: The surgeon/proceduralist and patient have discussed in detail the risk of exposure to and/or potential harm posed by the COVID-19 virus with having a surgery/procedure at this time versus the risk of delaying the surgery/procedure. It is not possible to know either the risk of delaying the surgery or procedure or chance of getting an infection with perfect accuracy, but a joint decision was made between the patient and the surgeon/proceduralist to proceed at this time with the scheduled surgery/procedure as indicated on the consent form. Inpatient E&M: 93941 Init Hosp L3 - -57 Modifier ICD-10 - L02.416, E11.9, Z86.19, Z87.891
[2020-03-08 12:00] LABS: Bedside Glucose 242 mg/dL (70-110)
--- NOTE | 2020-03-08 13:15 | SOF_PTH ---
PATIENT: TA PATTEN LOC: MS3 U#:[id number] AGE/SX: 44/M ROOM: MD320 RE03/07/[address]: Dr. Jade Sibley MD : 1975 BED: 1 DIS: 03/11/2020 SPEC #: [id number] RECD: 03/09/20 07:53 STATUS: MAURICE REQ #: [id number] ERIC: 03/08/20 13:[address]: Jade Sibley DEPT: SURGICAL PATHOLOGY RECD BY: Marine Espinoza ENTERED: 03/09/20 09:35 SP TYPE: SOFT TISS OTHR DR: DO Dr. Price José MD Dr. Paul Nielsen, MD Dr. Robert Leininger, MD Tissues: Soft tissues, NOS Procedures: Special Stain Group I Surgery Specimen Level III AFB Stain (control) GMS Stain (control) HEADER OPERATION: Incision and drainage abscess left leg PRE-OP DIAGNOSIS: Diabetic abscess left lateral leg TISSUE SUBMITTED: Left leg abscess MICROSCOPIC DIAGNOSIS Left leg abscess: A piece of skin with underlying tissue with extensive hemorrhage, acute and chronic inflammation and abscess formation. Special stains for acid fast bacilli and fungi are negative for organisms; matched controls are appropriate. GOSIA:radha 03/10/20 MICROSCOPIC DESCRIPTION Slides are reviewed. GROSS DESCRIPTION Received in fixative is one container labeled with the patient's name and designated left leg abscess. The specimen consists of a piece of skin with underlying tissue measuring 8.2 x 7.2 cm and up to 1 cm in thickness. Sections reveal focally congested cut surfaces. Numerous lesions are identified. Director Diabetes sections are submitted in two cassettes. / GOSIA:radha 03/09/20 TC:2 CPT: 80586, 59123 x2
[2020-03-08 13:16] LABS: M R Staph aureus DNA By PCR Negative (Negative); Probe Check PASS; Specimen Processing Control PASS
--- NOTE | 2020-03-08 13:28 | EKG12_ITS ---
Test Reason : Blood Pressure : / mmHG Vent. Rate : 072 BPM Atrial Rate : 072 BPM P-R Int : 162 ms QRS Dur : 110 ms QT Int : 404 ms P-R-T Axes : 019 009 -05 degrees QTc Int : 442 ms Normal sinus rhythm Inferior infarct , age undetermined Abnormal ECG No previous ECGs available Confirmed by BRENT MORILLO, JP ([id number]), script editor WIL HERNADEZ ([id number]) on 03/13/2020 1:14:47 PM Referred By: ROXIE Confirmed By:BEVERLY KENNEDY MD
--- NOTE | 2020-03-08 15:33 | NURSING ---
Off unit to OR
[2020-03-08] MEDS: Lactated Ringers 1,000 ML 100 ML IV (19:15)
--- NOTE | 2020-03-08 19:22 | OP.PCM_ITS ---
Report of Operation Date of Procedure: 03/08/20 Pre-Operative Diagnosis: 1. Diabetic abscess left lateral leg. 2. Diabetes mellitus. 3. History of Streptococcal infection. 4. Former smoker. Post-Operative Diagnosis: Same. Surgery/Procedure Performed:: Surgical preparation left lateral leg with incision and drainage and excisional debridement diabetic abscess (72 cm2). Description of Surgical Findings:: The patient is a 44 year old M presented to the ED with increasing pain and redness and swelling left lateral leg. Patient has a tattoo in the area of his symptomatology that was done 20 years ago. He denies any trauma to that area. 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 He was placed on oral antibiotic therapy (Doxycycline and then Bactrim and Keflex), and his symptomatology worsened which prompted his visit to the ED. In the emergency room, he received Pipracil and/tazobactam and vancomycin. A CT was done which showed diffuse cellulitis. No visible abscess. No CT evidence of osteomyelitis. A venous doppler was also done which was negative for DVT. Patient has concerns because he had a Streptococcal infection last year that spread to his spine and heart. He sees an Infectious Diseases specialist periodically for close monitoring. I was asked to evaluate this patient for surgical options for treatment. Urgent operative intervention was recommended to be done today. There are concerns with his diabetes about an abscess developing that can progress to a potential necrotizing process involving muscle and fascia. Patient was informed of the risks and complications of the procedure including alternatives to surgery. These were discussed with the patient personally. Patient voices understanding and wishes to proceed. He understands that if surgery is delayed for the next 1-2 days, he is at risk for worsening infection which potentially can be life threatening and limb threatening. He voices understanding. Size of defect left lateral leg - 9 x 8 x 1 cm. incident response analyst: None Type of Anesthesia:: General Specimen's removed: 1. Diabetic abscess left lateral leg to Pathology and Microbiology. 2. MRSA Wound DNA by PCR. Drains: None. Estimated Blood Loss (mL): 50 ml. Description of Procedure: Patient was taken to OR in supine position and was placed under general anesthesia. The left leg was prepped and draped in the usual fashion. SCD's were placed for DVT prophylaxis. Perioperative antibiotics were given intravenously. For the procedure, I wore an N95 mask and wore proper eyewear protection. Using xylocaine with epinephrine, the abscess left lateral leg was infiltrated for postoperative pain relief. Using a scalpel, an incision was made around the abscess down into the subcutaneous tissue. Pus was seen. It was thickened. A lot of induration and fat necrosis was present. The infection extended down to the muscle and involved the muscle. The muscle appeared viable but severely bruised. I palpated proximally and distally and no pus was seen in the surrounding muscles and tendons. By the end of the surgery, the muscles became pinker. Some of the muscle was excised and debrided along with the induration and fat necrosis. I palpated deep to the muscles and no additional pus was noted deep to the muscles. The muscles involved with the excisional debridement were the peroneus longus and peroneus brevis and soleus and extensor digitorum longus muscles. Tissue that was debrided was sent to Pathology for analysis and to Microbiology for culture. A positive culture will necessitate antibiotic therapy. A MRSA Wound DNA by PCR was also done. The wound was irrigated with saline. Hemostasis was obtained with electrocautery. The size of the defect after incision and drainage and excisional debridement was 9 x 8 x 1 cm or 72 cm2. The wound was dressed with Mepitel nonadherent dressing followed by Betadine gauze. This was followed by dry Kerlix gauze and ABD pads and a compression tomas wrap. Patient tolerated the procedure well and was sent to PACU in satisfactory condition. Patient will be sent upstairs for continued postop care. The VAC will be applied tomorrow. After discharge, he will [facility]. He will keep his left leg elevated during the initial postoperative period. If there is a plateau in the healing process, can proceed with delayed closure with skin grafting. Grafts/Implants Used: None. - Complications None. - Admit VTE Documentation VTE Present on Admission: No VTE Mechan Device Prophylaxis: SCD's VTE Pharm Prophylaxis ordered?: Yes Surgery Charges CPT - 89491 ICD-10 - S81.802A, L02.416, E11.9, Z86.19, Z87.891 66430 L02.416, E11.9, Z86.19, S81.802A, Z87.891
[2020-03-08 20:31] LABS: Bedside Glucose 233 mg/dL (70-110)
[2020-03-08] MEDS: proCHLORPERazine 10 MG/2 ML Vial IV (20:52)
[2020-03-08] MEDS: Atorvastatin Calcium 40 MG Tablet PO (21:27)
[2020-03-08] MEDS: buPROPion (XL) 300 MG TABLET.XL PO (21:28)
[2020-03-08 22:10] LABS: Bedside Glucose 215 mg/dL (70-110)
[2020-03-08] MEDS: Morphine 2 MG/ML Syringe IV (22:11)
[2020-03-08] MEDS: oxyCODONE 5 MG Tablet PO (23:32)
[2020-03-09] VITALS (7 sets, daily range): BP systolic 124–149; BP diastolic 72–83; PULSE 66–97; RESP 16–18; TEMP 36.6–37.1; O2SAT 95–100
[2020-03-09 00:46] LABS: Vancomycin, Trough Level 8.7 ug/mL (5.0-15.0)
[2020-03-09] MEDS: Morphine 2 MG/ML Syringe IV ×3 (01:19→12:47)
--- NOTE | 2020-03-09 03:59 | PCM.RX.CS ---
Consult Pharmacy has been consulted to manage selected antiobiotic: Vancomycin Type of Consult: Follow-up Suspected Infection: Skin/Soft tissue Prior Doses of Antibiotics Received/Current Regimen: Medications Vancomycin HCl 2,000 mg/ (Sodium Chloride) 540 mls @ 250 mls/hr IV Q12H [facility]IDA Discontinued Medications Vancomycin HCl 1,750 mg/ (Sodium Chloride) 535 mls @ 250 mls/hr IV Q12H [facility] Last Admin: 03/09/20 01:12 Dose: 250 mls/hr Labs: Sodium 136 mmol/L (136-145) 03/08/20 05:03 Potassium 3.7 mmol/L (3.5-5.1) 03/08/20 05:03 Chloride 105 mmol/L (98-107) 03/08/20 05:03 Carbon Dioxide 24.0 mmol/L (21.0-32.0) 03/08/20 05:03 Anion Gap 7 (5-15) 03/08/20 05:03 BUN 16 mg/dL (7-18) 03/08/20 05:03 Creatinine 0.84 mg/dL (0.70-1.30) 03/08/20 05:03 Est GFR (MDRD) Af Amer 129 mL/min (>60) 03/08/20 05:03 Est GFR (MDRD) Non-Af 106 mL/min (>60) 03/08/20 05:03 BUN/Creatinine Ratio 19.1 RATIO (10-20) 03/08/20 05:03 Glucose 173 mg/dL (74-106) H 03/08/20 05:03 Vancomycin Trough 8.7 ug/mL (5.0-15.0) 03/09/20 00:03 Microbiology: Microbiology 03/08/20 11:20 Mucosa - Nose SARS-CoV-2 Antigen (Rapid) - Final Weight used for dosin.1 kg Estimated Creatinine Clearance: 141 Goal Trough: 10-15 mcg/mL Pharmacy Plan for Drug Dosing: Vancomycin trough level of 8.7 was below the target range of 10-15. Will increase dose to 2000mg q12h and re-draw trough prior to 4th dose of new regimen. Pharmacy Service will continue to monitor and adjust dosing as required. Follow-Up Labs: Trough Vancomycin Labs to be done on [date and time ordered]: 03/11/20 @0030
[2020-03-09] MEDS: oxyCODONE 5 MG Tablet 10 MG PO ×4 (05:45→18:46)
[2020-03-09] MEDS: Lactated Ringers 1,000 ML 100 ML IV ×2 (05:45→17:08)
[2020-03-09] MEDS: Ondansetron 4 MG/2 ML Vial IV (05:51)
[2020-03-09 06:03] LABS: Absolute Lymphocyte Count 1.04 X10^3/uL (0.83-4.51); Absolute Neutrophil Count 3.5 X10^3/uL (2.0-7.7); Basophil# 0.03 X10^3/uL; Basophil% 0.6 % (0-1); Eosinophil# 0.12 X10^3/uL; Eosinophils% 2.2 % (0-5); Hematocrit 38.1 % (40-54); Hemoglobin 12.4 g/dL (13.0-16.5); Lymphocyte # 1.04 X10^3/ul (4.0); Lymphocyte % 19.1 % (19-41); Mean Corp Hgb Conc 32.5 g/dL (32-36); Mean Corpuscular Hgb 28.4 pg (27.0-32.0); Mean Corpuscular Volume 87.4 fL (80-94); Mean Platelet Vol. 11.2 fl (6.2-12.0); Monocyte# 0.74 X10^3/uL; Monocyte% 13.6 % (0-10); NRBC Flagged by Analyzer 0 % (0-5); Neutrophil # 3.47 X10^3/uL (2.7-7.7); Neutrophil % 63.6 % (47-70); Platelet Count 209 K/mm3 (150-450); RBC Distribution Width CV 12.3 % (11.6-14.6); RBC Distribution Width SD 39.7 fl (35.1-43.9); Red Blood Count 4.36 M/mm3 (4.6-6.2); White Blood Count 5.5 K/mm3 (4.4-11.0)
[2020-03-09 06:40] LABS: ALB/GLOB Ratio 0.6 RATIO (0.9-2.4); AST(SGOT) 9 U/L (15-37); Alanine Aminotransfer ALT/SGPT 13 U/L (16-61); Albumin, Serum 2.5 g/dL (3.2-5.0); Alkaline Phosphatase 69 U/L (45-117); Anion Gap 1 (5-15); BUN 14 mg/dL (7-18); BUN/Creat Ratio 19.4 RATIO (10-20); Calcium,Total 8.1 mg/dL (8.5-10.1); Chloride 106 mmol/L (98-107); Creatinine, Serum 0.72 mg/dL (0.70-1.30); EST Glomerular Filtration Rate 126 mL/min (>60); Est Glom Filt Rate - Afr Amer 153 mL/min (>60); Estimated Creatinine Clearance 164.09 ml/min; Glucose 217 mg/dL (74-106); Potassium 4.3 mmol/L (3.5-5.1); Protein, Total 6.5 g/dL (6.4-8.2); Sodium Level 135 mmol/L (136-145)
[2020-03-09] MEDS: proCHLORPERazine 10 MG/2 ML Vial IV (07:09)
[2020-03-09 07:11] LABS: Bedside Glucose 223 mg/dL (70-110)
--- NOTE | 2020-03-09 07:25 | PN_ITS ---
Patient Problems: Active and Suspected Problems Cellulitis of left lower leg (Acute) Subjective: Patient with no acute events overnight per self and per nursing report status post operative intervention the evening prior, notes pain has improved although different following OR. Patient understands necessity for VAC placement today. 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 Patient denies fevers, chills, nausea, emesis, abdominal pain, chest pain or dyspnea. Objective: Physical Examination: General: awake, alert, oriented x 3 and cooperative, seated upright in the surgical bed, notes feeling more comfortable. Skin: normal color, turgor, no icterus, cyanosis except left lower extremity status post OR with dressing in place, awaiting takedown per wound care for planned VAC placement, no drainage noted. HEENT: AT/NC, EOMI, PERRLA, MMM. Lungs: CTA bilaterally, moderate effort, mild decrease BL bases, no rales, ronchi or wheezing. Heart: Regular rate and rhythm; no gallop, rub audible. Abdomen: soft, BS, NTTP, ND, normal BS, no HSM. Extremities: no cyanosis, no clubbing, see skin, lower extremity edema is noted. Neurological: patient awake, alert, oriented x 3; cognitive function intact; pupils equally reactive to light and accomodation; cranial nerves II-XII grossly normal, moving all 4 extremities, no focal deficits, strength mildly global decrease given acute presentation. Psychiatric: affect appears normal, no acute evidence of depressive or anxiety feelings. Vitals/I&O's: Vital Signs Temp Pulse Resp BP Pulse Ox 98.3 F 66 18 131/83 H 99 03/09/20 05:45 03/09/20 05:45 03/09/20 05:45 03/09/20 05:45 03/09/20 05:45 Oxygen Delivery Method Room Air Weight: 278 lb 0.046 oz Body Mass Index (BMI) 33.8 Intake and Output for Last 24 Hours 03/07/20 03/08/20 03/09/20 23:59 23:59 23:59 Intake Total 930 / 930 2540 / 2540 188 / 188 Output Total 750 / 750 550 / 550 Balance 180 / 180 1989 / 1989 1884 / 188 Microbiology Past 72 Hours 03/08/20 11:20 Mucosa - Nose SARS-CoV-2 Antigen (Rapid) - Final Laboratory Results 03/08/20 05:03: Hemoglobin A1c 9.9 H 03/08/20 07:35: MRSA (PCR) Negative 03/08/20 11:53: POC Glucose 242 H 03/08/20 20:24: POC Glucose 233 H 03/08/20 22:02: POC Glucose 215 H 03/09/20 00:03: Vancomycin Trough 8.7 03/09/20 05:22: WBC 5.5, RBC 4.36 L, Hgb 12.4 L, Hct 38.1 L, MCV 87.4, MCH 28.4, MCHC 32.5, RDW Std Deviation 39.7, RDW Coeff of Chandni 12.3, Plt Count 209, MPV 11.2, Immature Gran % (Auto) 0.900, Neut % (Auto) 63.6, Lymph % (Auto) 19.1, [place] % (Auto) 13.6 H, Eos % (Auto) 2.2, Baso % (Auto) 0.6, Absolute Neuts (auto) 3.5, Absolute Lymphs (auto) 1.04, Nucleated RBC % 0 03/09/20 05:22: Sodium 135 L, Potassium 4.3, Chloride 106, Carbon Dioxide 28.0, Anion Gap 1 L, BUN 14, Creatinine 0.72, Estim Creat Clear Calc 164.09, Est GFR (MDRD) Af Amer 153, Est GFR (MDRD) Non-Af 126, BUN/Creatinine Ratio 19.4, Glucose 217 H, Calcium 8.1 L, Total Bilirubin 0.80, AST 9 L, ALT 13 L, Alkaline Phosphatase 69, Total Protein 6.5, Albumin 2.5 L, Globulin 4.0, Albumin/Globulin Ratio 0.6 L 03/09/20 06:49: POC Glucose 223 H Current Medications Acetaminophen (Acetaminophen 325 Mg Tablet) 650 mg PO Q6H PRN PRN PRN Reason: Pain Score 1-10/Temp > 100.7 F Al Hydroxide/Mg Hydroxide (Mag Hydrox/Al Hydrox/Simeth 30 Ml Udc) 30 ml PO Q6H PRN PRN PRN Reason: Gastric Burning Aspirin (Aspirin E.C. 81 Mg Tablet) 81 mg PO DAILY@0800 NEIDA Last Admin: 03/08/20 09:42 Dose: Not Given Documented by: Atorvastatin Calcium (Atorvastatin Calcium 40 Mg Tablet) 40 mg PO QHS [facility] Last Admin: 03/08/20 21:27 Dose: 40 mg Documented by: Bisacodyl (Bisacodyl 5 Mg Tablet) 10 mg PO DAILY PRN PRN PRN Reason: Constipation Bupropion HCl (Bupropion (Xl) 300 Mg Tablet.Xl) 300 mg PO QHS [facility] Last Admin: 03/08/20 21:28 Dose: 300 mg Documented by: Clonazepam (Clonazepam 0.5 Mg Tablet) 0.5 mg PO BID [facility] Last Admin: 03/08/20 21:27 Dose: 0.5 mg Documented by: Docusate Sodium (Docusate Sodium 100 Mg Capsule) 200 mg PO BID PRN PRN PRN Reason: Constipation Enoxaparin Sodium (Enoxaparin 40 Mg/0.4 Ml Syringe) 40 mg SC DAILY [facility] Last Admin: 03/08/20 09:42 Dose: Not Given Documented by: Vancomycin IV Pharmacy to Dose (1 ea/ Sodium Chloride) 500 mls @ 250 mls/hr IV X1 PRN; Protocol PRN Reason: Rx to Dose Piperacillin Sod/Tazobactam (Sod 3.375 gm/ Sodium Chloride) 50 mls @ 12.5 mls/hr IV Q8 [facility] Last Admin: 03/09/20 05:45 Dose: 12.5 mls/hr Documented by: Lactated Ringer's () 1,000 mls @ 100 mls/hr IV .Q10H [facility] Last Admin: 03/09/20 05:45 Dose: 100 mls/hr Documented by: Vancomycin HCl 2,000 mg/ (Sodium Chloride) 540 mls @ 250 mls/hr IV Q12H [facility] Ibuprofen (Ibuprofen 400 Mg Tablet) 400 mg PO Q4H PRN PRN PRN Reason: Pain Score 1-10/Temp > 100.7 F Last Admin: 03/08/20 05:33 Dose: 400 mg Documented by: Insulin Human Lispro (Insulin Lispro 100 Unit/Ml Insuln.Pen) 0 unit SC TIDAC [facility]; Protocol Last Admin: 03/08/20 19:09 Dose: Not Given Documented by: Lisinopril (Lisinopril 10 Mg Tablet) 10 mg PO DAILY [facility] Last Admin: 03/08/20 19:10 Dose: Not Given Documented by: Metoprolol Tartrate (Metoprolol Tartrate 25 Mg Tablet) 25 mg PO BID [facility] Last Admin: 03/08/20 21:27 Dose: 25 mg Documented by: Morphine Sulfate (Morphine 2 Mg/Ml Syringe) 2 - 4 mg IV Q3H PRN PRN PRN Reason: Pain Score 6-10 Last Admin: 03/09/20 01:19 Dose: 4 mg Documented by: Morphine Sulfate (Morphine 2 Mg/Ml Syringe) 1 - 2 mg IV Q4H PRN PRN PRN Reason: Pain Score 4-5 Last Admin: 03/08/20 22:11 Dose: 2 mg Documented by: Non-Formulary Medication (Insulin Lispro) 1.4 unit SC UD [facility] Last Admin: 03/08/20 22:05 Dose: Not Given Documented by: Nutritional Formula (Lactose Free) (Glucerna Shake 120 Ml Liquid) 120 ml PO TIDCM [facility] Last Admin: 03/08/20 19:09 Dose: Not Given Documented by: Ondansetron HCl (Ondansetron 4 Mg/2 Ml Vial) 4 mg IV Q8H PRN PRN PRN Reason: NAUSEA/VOMITING Last Admin: 03/09/20 05:51 Dose: 4 mg Documented by: Oxycodone HCl (Oxycodone 5 Mg Tablet) 5 mg PO Q4H PRN PRN PRN Reason: Pain Score 4-5 Last Admin: 03/08/20 23:32 Dose: 5 mg Documented by: Oxycodone HCl (Oxycodone 5 Mg Tablet) 10 mg PO Q4H PRN PRN PRN Reason: Pain Score 6-10 Last Admin: 03/09/20 05:45 Dose: 10 mg Documented by: Polyethylene Glycol (Polyethylene Glycol 3350 17 Gm Packet) 17 gm PO DAILY [facility] Last Admin: 03/08/20 09:42 Dose: Not Given Documented by: Prochlorperazine Edisylate (Prochlorperazine 10 Mg/2 Ml Vial) 10 mg IV Q6H PRN PRN PRN Reason: Nausea/Vomiting Last Admin: 03/09/20 07:09 Dose: 10 mg Documented by: Sodium Chloride (0.9% Saline Lock 10 Ml Syringe) 10 - 40 ml IV UD PRN PRN Reason: SALINE FLUSH Ticagrelor (Ticagrelor 90 Mg Tablet) 90 mg PO BID [facility] Last Admin: 03/08/20 21:18 Dose: Not Given Documented by: Zolpidem Tartrate (Zolpidem Tartrate 5 Mg Tablet) 5 mg PO QHS PRN PRN PRN Reason: insomnia STROKE Vital Signs/Narrative: Vital Signs Temp Pulse Resp BP Pulse Ox 03/09/20 05:45 98.3 F 66 18 131/83 H 99 Medical Necessity - Tobacco Use Smoking Status: Former smoker Tobacco Use: Cigarettes, Chew Assessment/Plan All Active Problems Open wound of left lower leg with complication (Acute) Abscess of left lower leg (Acute) Cellulitis of left lower leg (Acute) The patient is a 44 y/o F w/ PMHx: CAD, Anxiety, Obesity, Diabetes mellitus type II, HTN, HLD, Chronic back pain with radiculopathy who presents to the [facility] ED on 03/07/20 with history of left lower extremity redness with no recent injury with outpatient treatment with doxycycline with no improvement with then transition to Bactrim and Keflex but despite ongoing antibiotic therapy patient with increased redness, swelling, pain. 1. Acute LL Extremity Cellulitis with Abscess, failed outpatient antibiotic therapies complicated by Diabetes mellitus type II poorly controlled: ED evaluation with CT left lower extremity with diffuse cellulitis with no visible abscess, no significant WBC elevation or left shift, admitted to medical surgical floor, maintained on IV vancomycin and Zosyn, OR 03/08/[address] Allen with I&D of complicated abscess, MRSA wound negative however per infectious disease review plan continuation of vancomycin and Zosyn given patient prior complicated history and underlying diabetes pending OR Wound Cx, negative LLE duplex US, awaiting wound RN evaluation for planned VAC placement, continue affected extremity elevation above heart when seated and in bed, during oral and IV pain regimen. Given patient usage of aspirin, Brilinta, Lovenox, closely monitor for oozing from wound with VAC placement. 2. Diabetes mellitus type II with radiculopathy: Will continue home insulin pump regimen, ADA diet, hemoglobin A1c elevated 9.9%, poor control likely contributing to #1, accu checks w/ ISS continue home gabapentin regimen, nutrition consulted for education and teaching. 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 3. Hypertension: Continue home regimen including lisinopril, metoprolol, amlodipine, PRN hydralazine. 4. Hyperlipidemia: Continue home statin regimen. 5. Anxiety: We will continue patient home bupropion and Valium regimen. 6. CAD: Patient not best historian, now relating history of PCI x2, will maintain on aspirin, Brilinta, statin, beta-noemí and [place] inhibitor therapy. 7. DVT prophylaxis: SCDchin, joliex. Inpatient E&M: 60132 Subs Hosp L2
[2020-03-09] MEDS: Aspirin E.C. 81 MG Tablet PO (08:40)
[2020-03-09] MEDS: Metoprolol Tartrate 25 MG Tablet PO ×2 (08:41→21:17)
[2020-03-09] MEDS: TICAGRELOR 90 MG TABLET PO ×2 (08:41→21:18)
[2020-03-09] MEDS: Enoxaparin 40 MG/0.4 ML Syringe SC (08:41)
[2020-03-09] MEDS: Lisinopril 10 MG Tablet PO (08:42)
[2020-03-09] MEDS: Polyethylene Glycol 3350 17 GM PACKET PO (08:42)
[2020-03-09] MEDS: clonazePAM 0.5 MG Tablet PO ×2 (08:45→21:18)
[2020-03-09] MEDS: 0.9% Saline Lock 10 ML Syringe IV (09:32)
[2020-03-09 09:49] LABS: M R Staph aureus DNA By PCR Negative (Negative); Probe Check PASS; Specimen Processing Control PASS; Staph aureus DNA By PCR POSITIVE (Negative)
--- NOTE | 2020-03-09 10:12 | NURSING ---
wound photo: left lateral lower leg
[2020-03-09 11:11] LABS: Bedside Glucose 246 mg/dL (70-110)
--- NOTE | 2020-03-09 11:39 | PCM.HP.ID ---
Problem List (1) Cellulitis of left lower leg Status: Acute Reason for Consult: LLE infection Consulted by: Dr. 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 Was given about 4 months of iv abx then long course of po after infection a year ago, but has been off abx for a long time since then. No inciting event to his leg this time, no trauma, no animal bites/scratches. Went to ED twice in [place], given po abx without improvement. Pain became severe, some fever/chills. Came to ED here, started vanc/zosyn, CT showed no abscess, taken to OR by Dr. Allen 03/08/20. Pain improved. Wound vac being placed this AM. Full ROS performed and neg except as noted above. - Medical History Past Medical History (Chronic Problems): Chronic Problems Former smoker (Chronic) History of streptococcal infection (Chronic) Type 2 diabetes mellitus (Chronic) Hypertension (Chronic) Intractable back pain (Chronic) Lumbar radiculopathy (Chronic) Anxiety (Chronic) Allergies/Adverse Reactions: Allergies No Known Allergies Allergy (Verified 03/07/20 15:04) Home Medications: Ambulatory Orders Medication Instructions Recorded Lisinopril [Zestril] 10 mg PO DAILY 11/19/18 Acetaminophen [Tylenol Extra 1,000 mg PO DAILY PRN PRN 03/07/20 Strength] Aspirin E.C. [Ecotrin] 81 mg PO DAILY@0800 03/07/20 Atorvastatin Calcium 40 mg PO QHS 03/07/20 Bupropion HCl [Bupropion Xl] 300 mg PO QHS 03/07/20 Cephalexin [Keflex] 500 mg PO 4X/DAY 03/07/20 Clonazepam 0.5 mg PO BID 03/07/20 Insulin Lispro [Humalog] 1.4 unit IN CONT 03/07/20 Metoprolol Tartrate 25 mg PO BID 03/07/20 Smz/Tmp Ds [Bactrim Ds] 1 tab PO BID 03/07/20 Ticagrelor [Brilinta] 90 mg PO BID 03/07/20 - Social History SMOKING STATUS:: Former smoker Vital Signs Temp Pulse Resp BP Pulse Ox 98.8 F 97 17 139/72 H 100 03/09/20 08:15 03/09/20 08:41 03/09/20 08:15 03/09/20 08:15 03/09/20 08:15 Oxygen Delivery Method Room Air Weight: 126.1 kg Body Mass Index (BMI) 33.8 Microbiology Past 72 Hours 03/08/20 Unknown Gram Stain - Final Other - Other 03/08/20 11:20 SARS-CoV-2 Antigen (Rapid) - Final Mucosa - Nose Laboratory Tests Past 24 Hrs 03/08/20 03/08/20 03/09/20 07:35 Unknown 00:03 WBC RBC Hgb Hct MCV MCH MCHC RDW Std Deviation RDW Coeff of Chandni Plt Count MPV Immature Gran % (Auto) Neut % (Auto) Lymph % (Auto) [place] % (Auto) Eos % (Auto) Baso % (Auto) Absolute Neuts (auto) Absolute Lymphs (auto) Nucleated RBC % Sodium Potassium Chloride Carbon Dioxide Anion Gap BUN Creatinine Estim Creat Clear Calc Est GFR (MDRD) Af Amer Est GFR (MDRD) Non-Af BUN/Creatinine Ratio Glucose Calcium Total Bilirubin AST ALT Alkaline Phosphatase Total Protein Albumin Globulin Albumin/Globulin Ratio Vancomycin Trough 8.7 S.aureus Protein A PCR POSITIVE H MRSA (PCR) Negative Negative 03/09/20 03/09/20 05:22 05:22 WBC 5.5 RBC 4.36 L Hgb 12.4 L Hct 38.1 L MCV 87.4 MCH 28.4 MCHC 32.5 RDW Std Deviation 39.7 RDW Coeff of Chandni 12.3 Plt Count 209 MPV 11.2 Immature Gran % (Auto) 0.900 Neut % (Auto) 63.6 Lymph % (Auto) 19.1 [place] % (Auto) 13.6 H Eos % (Auto) 2.2 Baso % (Auto) 0.6 Absolute Neuts (auto) 3.5 Absolute Lymphs (auto) 1.04 Nucleated RBC % 0 Sodium 135 L Potassium 4.3 Chloride 106 Carbon Dioxide 28.0 Anion Gap 1 L BUN 14 Creatinine 0.72 Estim Creat Clear Calc 164.09 Est GFR (MDRD) Af Amer 153 Est GFR (MDRD) Non-Af 126 BUN/Creatinine Ratio 19.4 Glucose 217 H Calcium 8.1 L Total Bilirubin 0.80 AST 9 L ALT 13 L Alkaline Phosphatase 69 Total Protein 6.5 Albumin 2.5 L Globulin 4.0 Albumin/Globulin Ratio 0.6 L Vancomycin Trough S.aureus Protein A PCR MRSA (PCR) - Other Studies Radiology: [] reviewed Other Studies: [] Route of nutrition/ use of supplements: [] Nutritional Intake: [] IV Site: [] Diaz Catheter: [] - Physical Exam General: Alert, Oriented x3, Cooperative, No apparent distress HEENT: Atraumatic, PERRLA, EOMI Neck: Supple, No Nodes Lungs: Clear to auscultation, Normal air movement Cardiovascular: Regular rate, Regular Rhythm Abdomen: Soft, Non Tender, Non-Distended Extremities: No edema Skin: Ulcer/ Wound IV Site: Peripheral, without redness Musculoskeletal: No Tenderness to Palpation of Joints or Extremities Neurological: Cranial nerves II-XII grossly intact - Assessment/Plan Antibiotics: [] Assessment/Plan: [] Active and Suspected Problems Cellulitis of left lower leg (Acute) Now s/p debridement by Dr. Allen 03/08/20, h/o strep endocarditis and spine osteo a year ago at [facility]. Bcx here neg. Surg cx pending. Cont vanc/zosyn for now. Will follow, thank you
[2020-03-09] MEDS: Glucerna Shake 120 ML LIQUID PO ×2 (12:15→17:07)
--- NOTE | 2020-03-09 13:39 | CASEMGMT ---
RN CM in to discuss discharge planning with patient. Patient will have wound vac at discharge and discuss need for HHC. Patient states that he [facility] as he has had them in the past. RN FANNY called and sent referral to [facility] and awaiting call back. CM will continue to follow this patient and plan for a safe discharge.
[2020-03-09 16:51] LABS: Bedside Glucose 189 mg/dL (70-110)
[2020-03-09] MEDS: Acetaminophen 325 MG Tablet 650 MG PO (17:07)
--- NOTE | 2020-03-09 17:31 | PCM.PN.SRG ---
Patient Problems: Active and Suspected Problems Cellulitis of left lower leg (Acute) Subjective: Postop #1 Patient is resting comfortably. VAC applied. - Physical Exam Vitals/I&O's: Vital Signs Temp Pulse Resp BP Pulse Ox 97.8 F 66 16 127/76 H 98 03/09/20 14:30 03/09/20 14:30 03/09/20 14:30 03/09/20 14:30 03/09/20 14:30 Oxygen Delivery Method Room Air Weight: 278 lb 0.046 oz Body Mass Index (BMI) 33.8 Intake and Output for Last 24 Hours 03/07/20 03/08/20 03/09/20 23:59 23:59 23:59 Intake Total 930 / 930 2540 / 2540 4275 / 4275 Output Total 750 / 750 550 / 550 1200 / 1200 Balance 180 / 180 1989 3075 / 3075 General: Alert, Oriented x3 HEENT: PERRLA, EOMI Oral: Moist Mucosa Neck: Supple Abdomen: Soft, Non-Distended Extremities: Edema - mild edema left lower extremity., Peripheral Pulses Normal Skin: Ulcer/ Wound - left lateral leg wound stable. No active bleeding noted. No residual infection noted. VAC applied. Neurological: Cranial nerves II-XII grossly intact Psych/Mental Status: Normal Affect, Appropriate Microbiology Past 72 Hours 03/08/20 Unknown Other - Other Gram Stain - Final 03/08/20 Unknown Other - Other Wound Culture - Preliminary Staphylococcus aureus 03/08/20 11:20 Mucosa - Nose SARS-CoV-2 Antigen (Rapid) - Final Laboratory Results 03/08/20 20:24: POC Glucose 233 H 03/08/20 22:02: POC Glucose 215 H 03/08/20 : S.aureus Protein A PCR POSITIVE H, MRSA (PCR) Negative 03/09/20 00:03: Vancomycin Trough 8.7 03/09/20 05:22: WBC 5.5, RBC 4.36 L, Hgb 12.4 L, Hct 38.1 L, MCV 87.4, MCH 28.4, MCHC 32.5, RDW Std Deviation 39.7, RDW Coeff of Chandni 12.3, Plt Count 209, MPV 11.2, Immature Gran % (Auto) 0.900, Neut % (Auto) 63.6, Lymph % (Auto) 19.1, Collier % (Auto) 13.6 H, Eos % (Auto) 2.2, Baso % (Auto) 0.6, Absolute Neuts (auto) 3.5, Absolute Lymphs (auto) 1.04, Nucleated RBC % 0 03/09/20 05:22: Sodium 135 L, Potassium 4.3, Chloride 106, Carbon Dioxide 28.0, Anion Gap 1 L, BUN 14, Creatinine 0.72, Estim Creat Clear Calc 164.09, Est GFR (MDRD) Af Amer 153, Est GFR (MDRD) Non-Af 126, BUN/Creatinine Ratio 19.4, Glucose 217 H, Calcium 8.1 L, Total Bilirubin 0.80, AST 9 L, ALT 13 L, Alkaline Phosphatase 69, Total Protein 6.5, Albumin 2.5 L, Globulin 4.0, Albumin/Globulin Ratio 0.6 L 03/09/20 06:49: POC Glucose 223 H 03/09/20 11:00: POC Glucose 246 H 03/09/20 16:39: POC Glucose 189 H Current Medications Acetaminophen (Acetaminophen 325 Mg Tablet) 650 mg PO Q6H PRN PRN PRN Reason: Pain Score 1-10/Temp > 100.7 F Last Admin: 03/09/20 17:07 Dose: 650 mg Documented by: Al Hydroxide/Mg Hydroxide (Mag Hydrox/Al Hydrox/Simeth 30 Ml Udc) 30 ml PO Q6H PRN PRN PRN Reason: Gastric Burning Aspirin (Aspirin E.C. 81 Mg Tablet) 81 mg PO DAILY@0800 [facility] Last Admin: 03/09/20 08:40 Dose: 81 mg Documented by: Atorvastatin Calcium (Atorvastatin Calcium 40 Mg Tablet) 40 mg PO QHS [facility] Last Admin: 03/08/20 21:27 Dose: 40 mg Documented by: Bisacodyl (Bisacodyl 5 Mg Tablet) 10 mg PO DAILY PRN PRN PRN Reason: Constipation Bupropion HCl (Bupropion (Xl) 300 Mg Tablet.Xl) 300 mg PO QHS [facility] Last Admin: 03/08/20 21:28 Dose: 300 mg Documented by: Clonazepam (Clonazepam 0.5 Mg Tablet) 0.5 mg PO BID [facility] Last Admin: 03/09/20 08:45 Dose: 0.5 mg Documented by: Docusate Sodium (Docusate Sodium 100 Mg Capsule) 200 mg PO BID PRN PRN PRN Reason: Constipation Enoxaparin Sodium (Enoxaparin 40 Mg/0.4 Ml Syringe) 40 mg SC DAILY [facility] Last Admin: 03/09/20 08:41 Dose: 40 mg Documented by: Vancomycin IV Pharmacy to Dose (1 ea/ Sodium Chloride) 500 mls @ 250 mls/hr IV X1 PRN; Protocol PRN Reason: Rx to Dose Piperacillin Sod/Tazobactam (Sod 3.375 gm/ Sodium Chloride) 50 mls @ 12.5 mls/hr IV Q8 [facility] Last Admin: 03/09/20 15:21 Dose: 12.5 mls/hr Documented by: Lactated Ringer's () 1,000 mls @ 100 mls/hr IV .Q10H [facility] Last Admin: 03/09/20 17:08 Dose: 100 mls/hr Documented by: Vancomycin HCl 2,000 mg/ (Sodium Chloride) 540 mls @ 250 mls/hr IV Q12H [facility] Last Infusion: 03/09/20 15:03 Dose: Infused Documented by: Ibuprofen (Ibuprofen 400 Mg Tablet) 400 mg PO Q4H PRN PRN PRN Reason: Pain Score 1-10/Temp > 100.7 F Last Admin: 03/08/20 05:33 Dose: 400 mg Documented by: Insulin Human Lispro (Insulin Lispro 100 Unit/Ml Insuln.Pen) 0 unit SC TIDAC [facility]; Protocol Last Admin: 03/09/20 12:12 Dose: Not Given Documented by: Lisinopril (Lisinopril 10 Mg Tablet) 10 mg PO DAILY [facility] Last Admin: 03/09/20 08:42 Dose: 10 mg Documented by: Metoprolol Tartrate (Metoprolol Tartrate 25 Mg Tablet) 25 mg PO BID [facility] Last Admin: 03/09/20 08:41 Dose: 25 mg Documented by: Morphine Sulfate (Morphine 2 Mg/Ml Syringe) 2 - 4 mg IV Q3H PRN PRN PRN Reason: Pain Score 6-10 Last Admin: 03/09/20 12:47 Dose: 2 mg Documented by: Morphine Sulfate (Morphine 2 Mg/Ml Syringe) 1 - 2 mg IV Q4H PRN PRN PRN Reason: Pain Score 4-5 Last Admin: 03/09/20 09:31 Dose: 2 mg Documented by: Non-Formulary Medication (Insulin Lispro) 1.4 unit SC UD [facility] Last Admin: 03/08/20 22:05 Dose: Not Given Documented by: Nutritional Formula (Lactose Free) (Glucerna Shake 120 Ml Liquid) 120 ml PO TIDCM [facility] Last Admin: 03/09/20 17:07 Dose: 120 ml Documented by: Ondansetron HCl (Ondansetron 4 Mg/2 Ml Vial) 4 mg IV Q8H PRN PRN PRN Reason: NAUSEA/VOMITING Last Admin: 03/09/20 05:51 Dose: 4 mg Documented by: Oxycodone HCl (Oxycodone 5 Mg Tablet) 5 mg PO Q4H PRN PRN PRN Reason: Pain Score 4-5 Last Admin: 03/08/20 23:32 Dose: 5 mg Documented by: Oxycodone HCl (Oxycodone 5 Mg Tablet) 10 mg PO Q4H PRN PRN PRN Reason: Pain Score 6-10 Last Admin: 03/09/20 14:34 Dose: 10 mg Documented by: Polyethylene Glycol (Polyethylene Glycol 3350 17 Gm Packet) 17 gm PO DAILY [facility] Last Admin: 03/09/20 08:42 Dose: 17 gm Documented by: Prochlorperazine Edisylate (Prochlorperazine 10 Mg/2 Ml Vial) 10 mg IV Q6H PRN PRN PRN Reason: Nausea/Vomiting Last Admin: 03/09/20 07:09 Dose: 10 mg Documented by: Sodium Chloride (0.9% Saline Lock 10 Ml Syringe) 10 - 40 ml IV UD PRN PRN Reason: SALINE FLUSH Last Admin: 03/09/20 09:32 Dose: 10 ml Documented by: Ticagrelor (Ticagrelor 90 Mg Tablet) 90 mg PO BID [facility] Last Admin: 03/09/20 08:41 Dose: 90 mg Documented by: Zolpidem Tartrate (Zolpidem Tartrate 5 Mg Tablet) 5 mg PO QHS PRN PRN PRN Reason: insomnia Medical Necessity - Tobacco Use Smoking Status: Former smoker Tobacco Use: Cigarettes - in the past, Chew - in the past Assessment/Plan All Active Problems Open wound of left lower leg with complication (Acute) Abscess of left lower leg (Acute) Cellulitis of left lower leg (Acute) 1. Diabetic abscess left lateral leg. 2. Diabetes mellitus. 3. 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 4. Former smoker. Wound is stable. No active bleeding noted. No residual infection noted. VAC applied. Will add Valium for muscle spasm from the VAC. Continue Vancomycin and Zosyn. Operative culture shows Staphylococcus aureus. After discharge, [facility]. If there is a plateau in the healing process, can proceed with delayed closure with skin grafting. For an elective skin graft procedure, the HgbA1c needs to be less than 8. Currently it is 9.9. Will check a Prealbumin. Anticipate increased metabolic demands. Encourage nutritional supplementation with protein to help the healing process.
[2020-03-09] MEDS: Atorvastatin Calcium 40 MG Tablet PO (21:18)
[2020-03-09] MEDS: buPROPion (XL) 300 MG TABLET.XL PO (21:19)
[2020-03-09 21:31] LABS: Bedside Glucose 233 mg/dL (70-110)
[2020-03-10] VITALS (11 sets, daily range): BP systolic 140–184; BP diastolic 79–98; PULSE 70–79; RESP 16–18; TEMP 36.5–37.1; O2SAT 96–100
[2020-03-10] MEDS: Morphine 2 MG/ML Syringe IV ×2 (01:56→21:57)
--- NOTE | 2020-03-10 06:56 | NURSING ---
Home wound VAC approved for when patient is ready for discharge.
--- NOTE | 2020-03-10 07:24 | PN_ITS ---
Patient Problems: Active and Suspected Problems Cellulitis of left lower leg (Acute) Subjective: No acute events overnight per self and per nursing report. Patient tolerated VAC placement well with noted serosanguineous output in the back although minimal. Patient states that pain is much better and well controlled currently. Patient with preliminary wound culture with staph aureus with clearance for transition to Ancef with plan discharge on additional 5 days of Keflex. Patient with planned 03/11/2020 VAC replacement with then discharge following with home VAC set up. Patient denies fevers, chills, nausea, emesis, abdominal pain, chest pain or dyspnea. Objective: Physical Examination: General: awake, alert, oriented x 3 and cooperative, seated upright in the SC bedside chair, no acute distress, pain controlled. Skin: normal color, turgor, no icterus, cyanosis except left lower extremity status post OR with dressing in place, VAC in place, serosanguineous output in the canister. HEENT: AT/NC, EOMI, PERRLA, MMM. Lungs: CTA bilaterally, moderate effort, mild decrease BL bases, no rales, ronchi or wheezing. Heart: Regular rate and rhythm; no gallop, rub audible. Abdomen: soft, BS, NTTP, ND, normal BS, no HSM. Extremities: no cyanosis, no clubbing, see skin, lower extremity edema les sening, VAC in place as noted. Neurological: patient awake, alert, oriented x 3; cognitive function intact; pupils equally reactive to light and accomodation; cranial nerves II-XII grossly normal, moving all 4 extremities, no focal deficits, strength improving, mildly global decrease given acute presentation. Psychiatric: affect appears normal, no acute evidence of depressive or anxiety feelings. Vitals/I&O's: Vital Signs Temp Pulse Resp BP Pulse Ox 98.0 F 72 16 165/85 H 97 03/10/20 01:45 03/10/20 01:45 03/10/20 01:45 03/10/20 03:07 03/10/20 01:45 Oxygen Delivery Method Room Air Weight: 278 lb 0.046 oz Body Mass Index (BMI) 33.8 Intake and Output for Last 24 Hours 03/08/20 03/09/20 03/10/20 23:59 23:59 23:59 Intake Total 2540 / 2540 5061.67 / 5061.67 590 / 590 Output Total 550 / 550 1200 / 1200 1475 / 1475 Balance 1989 3861.67 / 3861.67 -885 / -885 Microbiology Past 72 Hours 03/07/20 15:55 Blood Culture (Wb) - Anticubital Right Blood Culture - Preliminary No growth in 48 hours. 03/07/20 15:50 Blood Culture (Wb) - Anticubital Left Blood Culture - Preliminary No growth in 48 hours. 03/08/20 Unknown Other - Other Gram Stain - Final 03/08/20 Unknown Other - Other Wound Culture - Preliminary Staphylococcus aureus 03/08/20 11:20 Mucosa - Nose SARS-CoV-2 Antigen (Rapid) - Final Laboratory Results 03/08/20 : S.aureus Protein A PCR POSITIVE H, MRSA (PCR) Negative 03/09/20 11:00: POC Glucose 246 H 03/09/20 16:39: POC Glucose 189 H 03/09/20 21:20: POC Glucose 233 H 03/10/20 06:46: WBC Pending, RBC Pending, Hgb Pending, Hct Pending, MCV Pending, MCH Pending, MCHC Pending, RDW Std Deviation Pending, RDW Coeff of Chandni Pending, Plt Count Pending, Neut % (Auto) Pending, Absolute Neuts (auto) Pending 03/10/20 06:46: Sodium Pending, Potassium Pending, Chloride Pending, Carbon Dioxide Pending, Anion Gap Pending, BUN Pending, Creatinine Pending, Est GFR (MDRD) Af Amer Pending, Est GFR (MDRD) Non-Af Pending, BUN/Creatinine Ratio Pending, Glucose Pending, Calcium Pending, Total Bilirubin Pending, AST Pending, ALT Pending, Alkaline Phosphatase Pending, Total Protein Pending, Albumin Pending, Prealbumin Pending Current Medications Acetaminophen (Acetaminophen 325 Mg Tablet) 650 mg PO Q6H PRN PRN PRN Reason: Pain Score 1-10/Temp > 100.7 F Last Admin: 03/09/20 17:07 Dose: 650 mg Documented by: Al Hydroxide/Mg Hydroxide (Mag Hydrox/Al Hydrox/Simeth 30 Ml Udc) 30 ml PO Q6H PRN PRN PRN Reason: Gastric Burning Aspirin (Aspirin E.C. 81 Mg Tablet) 81 mg PO DAILY@0800 [facility] Last Admin: 03/09/20 08:40 Dose: 81 mg Documented by: Atorvastatin Calcium (Atorvastatin Calcium 40 Mg Tablet) 40 mg PO QHS [facility] Last Admin: 03/09/20 21:18 Dose: 40 mg Documented by: Bisacodyl (Bisacodyl 5 Mg Tablet) 10 mg PO DAILY PRN PRN PRN Reason: Constipation Bupropion HCl (Bupropion (Xl) 300 Mg Tablet.Xl) 300 mg PO QHS [facility] Last Admin: 03/09/20 21:19 Dose: 300 mg Documented by: Clonazepam (Clonazepam 0.5 Mg Tablet) 0.5 mg PO BID [facility] Last Admin: 03/09/20 21:18 Dose: 0.5 mg Documented by: Diazepam (Diazepam 5 Mg Tablet) 5 mg PO TID PRN PRN PRN Reason: SPASMS Docusate Sodium (Docusate Sodium 100 Mg Capsule) 200 mg PO BID PRN PRN PRN Reason: Constipation Enoxaparin Sodium (Enoxaparin 40 Mg/0.4 Ml Syringe) 40 mg SC DAILY [facility] Last Admin: 03/09/20 08:41 Dose: 40 mg Documented by: Vancomycin IV Pharmacy to Dose (1 ea/ Sodium Chloride) 500 mls @ 250 mls/hr IV X1 PRN; Protocol PRN Reason: Rx to Dose Piperacillin Sod/Tazobactam (Sod 3.375 gm/ Sodium Chloride) 50 mls @ 12.5 mls/hr IV Q8 [facility] Last Admin: 03/10/20 05:45 Dose: 12.5 mls/hr Documented by: Vancomycin HCl 2,000 mg/ (Sodium Chloride) 540 mls @ 250 mls/hr IV Q12H [facility] Last Infusion: 03/10/20 04:08 Dose: Infused Documented by: Ibuprofen (Ibuprofen 400 Mg Tablet) 400 mg PO Q4H PRN PRN PRN Reason: Pain Score 1-10/Temp > 100.7 F Last Admin: 03/08/20 05:33 Dose: 400 mg Documented by: Insulin Human Lispro (Insulin Lispro 100 Unit/Ml Insuln.Pen) 0 unit SC TIDAC [facility]; Protocol Last Admin: 03/09/20 18:49 Dose: Not Given Documented by: Lisinopril (Lisinopril 10 Mg Tablet) 10 mg PO DAILY [facility] Last Admin: 03/09/20 08:42 Dose: 10 mg Documented by: Metoprolol Tartrate (Metoprolol Tartrate 25 Mg Tablet) 25 mg PO BID [facility] Last Admin: 03/09/20 21:17 Dose: 25 mg Documented by: Morphine Sulfate (Morphine 2 Mg/Ml Syringe) 2 - 4 mg IV Q3H PRN PRN PRN Reason: Pain Score 6-10 Last Admin: 03/10/20 01:56 Dose: 2 mg Documented by: Morphine Sulfate (Morphine 2 Mg/Ml Syringe) 1 - 2 mg IV Q4H PRN PRN PRN Reason: Pain Score 4-5 Last Admin: 03/09/20 09:31 Dose: 2 mg Documented by: Non-Formulary Medication (Insulin Lispro) 1.4 unit SC UD [facility] Last Admin: 03/09/20 21:54 Dose: Not Given Documented by: Nutritional Formula (Lactose Free) (Glucerna Shake 120 Ml Liquid) 120 ml PO TIDCM [facility] Last Admin: 03/09/20 17:07 Dose: 120 ml Documented by: Ondansetron HCl (Ondansetron 4 Mg/2 Ml Vial) 4 mg IV Q8H PRN PRN PRN Reason: NAUSEA/VOMITING Last Admin: 03/09/20 05:51 Dose: 4 mg Documented by: Oxycodone HCl (Oxycodone 5 Mg Tablet) 5 mg PO Q4H PRN PRN PRN Reason: Pain Score 4-5 Last Admin: 03/08/20 23:32 Dose: 5 mg Documented by: Oxycodone HCl (Oxycodone 5 Mg Tablet) 10 mg PO Q4H PRN PRN PRN Reason: Pain Score 6-10 Last Admin: 03/09/20 18:46 Dose: 10 mg Documented by: Polyethylene Glycol (Polyethylene Glycol 3350 17 Gm Packet) 17 gm PO DAILY [facility] Last Admin: 03/09/20 08:42 Dose: 17 gm Documented by: Prochlorperazine Edisylate (Prochlorperazine 10 Mg/2 Ml Vial) 10 mg IV Q6H PRN PRN PRN Reason: Nausea/Vomiting Last Admin: 03/09/20 07:09 Dose: 10 mg Documented by: Sodium Chloride (0.9% Saline Lock 10 Ml Syringe) 10 - 40 ml IV UD PRN PRN Reason: SALINE FLUSH Last Admin: 03/09/20 09:32 Dose: 10 ml Documented by: Ticagrelor (Ticagrelor 90 Mg Tablet) 90 mg PO BID [facility] Last Admin: 03/09/20 21:18 Dose: 90 mg Documented by: Zolpidem Tartrate (Zolpidem Tartrate 5 Mg Tablet) 5 mg PO QHS PRN PRN PRN Reason: insomnia Medical Necessity - Tobacco Use Smoking Status: Former smoker Tobacco Use: Cigarettes - in the past, Chew - in the past Assessment/Plan All Active Problems Open wound of left lower leg with complication (Acute) Abscess of left lower leg (Acute) Cellulitis of left lower leg (Acute) The patient is a 44 y/o F w/ PMHx: CAD, Anxiety, Obesity, Diabetes mellitus type II, HTN, HLD, Chronic back pain with radiculopathy who presents to the [facility] ED on 03/07/20 with history of left lower extremity redness with no recent injury with outpatient treatment with doxycycline with no improvement with then transition to Bactrim and Keflex but despite ongoing antibiotic therapy patient with increased redness, swelling, pain. 1. Acute LL Extremity Cellulitis with Abscess, failed outpatient antibiotic therapies complicated by Diabetes mellitus type II poorly controlled: ED evaluation with CT left lower extremity with diffuse cellulitis with no visible abscess, no significant WBC elevation or left shift, admitted to medical surgical floor, maintained on IV vancomycin and Zosyn, OR 03/08/[address] Allen with I&D of complicated abscess, MRSA wound negative, OR culture with staph aureus, infectious disease 03/10/2020 transition from vancomycin and Zosyn to Ancef with plans continued 5-day regimen of oral Keflex when appropriate for discharge, likely 03/11/2020 following VAC change with home VAC currently being arranged. Of note negative LLE duplex US. 2. Diabetes mellitus type II with radiculopathy, uncontrolled with insulin pump chronic placement: Initially continue patient insulin pump but running low, will increase insulin sliding scale to high dose per discussion with patient, hemoglobin A1c 9.9% with nutrition consulted for education teaching, continue ADA, continue home gabapentin regimen, nutrition consulted for education and teaching. 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 3. Hypertension: Continue home regimen including lisinopril, metoprolol, amlodipine, PRN hydralazine. 4. Hyperlipidemia: Continue home statin regimen. 5. Anxiety: We will continue patient home bupropion and Valium regimen. 6. CAD: PCI x2 approximately 1 year prior to current presentation, will maintain on aspirin, Brilinta, statin, beta-noemí and [place] inhibitor therapy. 7. DVT prophylaxis: jayne Tyson. Inpatient E&M: 63209 Subs Hosp L2
[2020-03-10 07:31] LABS: Absolute Lymphocyte Count 0.85 X10^3/uL (0.83-4.51); Absolute Neutrophil Count 3.1 X10^3/uL (2.0-7.7); Basophil# 0.02 X10^3/uL; Basophil% 0.4 % (0-1); Eosinophil# 0.08 X10^3/uL; Eosinophils% 1.7 % (0-5); Hematocrit 36.6 % (40-54); Lymphocyte # 0.85 X10^3/ul (4.0); Lymphocyte % 18.1 % (19-41); Mean Corp Hgb Conc 32.8 g/dL (32-36); Mean Corpuscular Hgb 28.2 pg (27.0-32.0); Mean Corpuscular Volume 85.9 fL (80-94); Mean Platelet Vol. 11.1 fl (6.2-12.0); Monocyte# 0.64 X10^3/uL; Monocyte% 13.6 % (0-10); NRBC Flagged by Analyzer 0 % (0-5); Neutrophil # 3.06 X10^3/uL (2.7-7.7); Neutrophil % 65.3 % (47-70); Platelet Count 182 K/mm3 (150-450); RBC Distribution Width CV 12.4 % (11.6-14.6); Red Blood Count 4.26 M/mm3 (4.6-6.2); White Blood Count 4.7 K/mm3 (4.4-11.0)
[2020-03-10 07:50] LABS: Bedside Glucose 189 mg/dL (70-110)
[2020-03-10 08:26] LABS: ALB/GLOB Ratio 0.6 RATIO (0.9-2.4); AST(SGOT) 8 U/L (15-37); Alanine Aminotransfer ALT/SGPT 13 U/L (16-61); Albumin, Serum 2.4 g/dL (3.2-5.0); Alkaline Phosphatase 60 U/L (45-117); Anion Gap 2 (5-15); BUN 9 mg/dL (7-18); BUN/Creat Ratio 12.8 RATIO (10-20); Calcium,Total 8.3 mg/dL (8.5-10.1); Chloride 108 mmol/L (98-107); EST Glomerular Filtration Rate 130 mL/min (>60); Est Glom Filt Rate - Afr Amer 157 mL/min (>60); Estimated Creatinine Clearance 168.78 ml/min; Globulin 3.8 g/dL (2.2-4.2); Glucose 198 mg/dL (74-106); Potassium 4.2 mmol/L (3.5-5.1); Prealbumin 9.1 mg/dL (20.0-40.0); Protein, Total 6.2 g/dL (6.4-8.2); Sodium Level 138 mmol/L (136-145)
[2020-03-10] MEDS: diazePAM 5 MG Tablet PO (08:46)
[2020-03-10] MEDS: 0.9% Saline Lock 10 ML Syringe IV (08:46)
[2020-03-10] MEDS: Glucerna Shake 120 ML LIQUID PO ×3 (09:19→17:25)
[2020-03-10] MEDS: Aspirin E.C. 81 MG Tablet PO (09:19)
[2020-03-10] MEDS: TICAGRELOR 90 MG TABLET PO ×2 (09:20→21:47)
[2020-03-10] MEDS: clonazePAM 0.5 MG Tablet PO ×2 (09:21→21:47)
[2020-03-10] MEDS: Metoprolol Tartrate 25 MG Tablet PO ×2 (09:22→21:46)
[2020-03-10] MEDS: Enoxaparin 40 MG/0.4 ML Syringe SC (09:23)
[2020-03-10] MEDS: Lisinopril 10 MG Tablet PO (09:25)
[2020-03-10] MEDS: Polyethylene Glycol 3350 17 GM PACKET PO (09:25)
[2020-03-10] MEDS: oxyCODONE 5 MG Tablet 10 MG PO ×3 (09:29→19:32)
[2020-03-10 12:00] LABS: Bedside Glucose 262 mg/dL (70-110)
[2020-03-10] MEDS: Insulin Lispro 100 UNIT/ML INSULN.PEN SC ×3 (12:13→18:11)
--- NOTE | 2020-03-10 12:48 | PN.SURG_ITS ---
Patient Problems: Active and Suspected Problems Cellulitis of left lower leg (Acute) Subjective: post op day #2 Patient resting in bed. - Physical Exam Vitals/I&O's: Vital Signs Temp Pulse Resp BP Pulse Ox 97.9 F 70 16 151/79 H 96 03/10/20 11:35 03/10/20 11:35 03/10/20 11:35 03/10/20 11:35 03/10/20 11:35 Oxygen Delivery Method Room Air Weight: 278 lb 0.046 oz Body Mass Index (BMI) 33.8 Intake and Output for Last 24 Hours 03/08/20 03/09/20 03/10/20 23:59 23:59 23:59 Intake Total 2540 / 2540 5061.67 / 5061.67 1040 / 1040 Output Total 550 / 550 1200 / 1200 2775 / 2775 Balance 1989 3861.67 / 3861.67 -1735 / -1735 General: Alert, Oriented x3, Cooperative HEENT: Atraumatic Oral: Moist Mucosa Lungs: Clear to auscultation, Normal air movement Cardiovascular: Regular rate, Regular Rhythm Abdomen: Bowel Sounds Present, Soft Extremities: Capillary Refill Less than 3 Seconds, Edema, Peripheral Pulses Normal Skin: Ulcer/ Wound - Left lateral leg ulcer is stable, no active bleeding, wound VAC dressing in place. Musculoskeletal: No Tenderness to Palpation of Joints or Extremities Neurological: Cranial nerves II-XII grossly intact Psych/Mental Status: Normal Affect, Appropriate Microbiology Past 72 Hours 03/08/20 Unknown Other - Other Gram Stain - Final 03/08/20 Unknown Other - Other Wound Culture - Preliminary Staphylococcus aureus 03/07/20 15:55 Blood Culture (Wb) - Anticubital Right Blood Culture - Preliminary No growth in 48 hours. 03/07/20 15:50 Blood Culture (Wb) - Anticubital Left Blood Culture - Preliminary No growth in 48 hours. 03/08/20 11:20 Mucosa - Nose SARS-CoV-2 Antigen (Rapid) - Final Laboratory Results 03/09/20 16:39: POC Glucose 189 H 03/09/20 21:20: POC Glucose 233 H 03/10/20 06:46: WBC 4.7, RBC 4.26 L, Hgb 12.0 L, Hct 36.6 L, MCV 85.9, MCH 28.2, MCHC 32.8, RDW Std Deviation 39.0, RDW Coeff of Chandni 12.4, Plt Count 182, MPV 11.1, Immature Gran % (Auto) 0.900, Neut % (Auto) 65.3, Lymph % (Auto) 18.1 L, [place] % (Auto) 13.6 H, Eos % (Auto) 1.7, Baso % (Auto) 0.4, Absolute Neuts (auto) 3.1, Absolute Lymphs (auto) 0.85, Nucleated RBC % 0 03/10/20 06:46: Sodium 138, Potassium 4.2, Chloride 108 H, Carbon Dioxide 28.0, Anion Gap 2 L, BUN 9, Creatinine 0.70, Estim Creat Clear Calc 168.78, Est GFR ( MDRD) Af Amer 157, Est GFR (MDRD) Non-Af 130, BUN/Creatinine Ratio 12.8, Glucose 198 H, Calcium 8.3 L, Total Bilirubin 0.50, AST 8 L, ALT 13 L, Alkaline Phosphatase 60, Total Protein 6.2 L, Albumin 2.4 L, Globulin 3.8, Albumin/Globulin Ratio 0.6 L, Prealbumin 9.1 L 03/10/20 07:45: POC Glucose 189 H 03/10/20 11:39: POC Glucose 262 H Current Medications Acetaminophen (Acetaminophen 325 Mg Tablet) 650 mg PO Q6H PRN PRN PRN Reason: Pain Score 1-10/Temp > 100.7 F Last Admin: 03/09/20 17:07 Dose: 650 mg Documented by: Al Hydroxide/Mg Hydroxide (Mag Hydrox/Al Hydrox/Simeth 30 Ml Udc) 30 ml PO Q6H PRN PRN PRN Reason: Gastric Burning Aspirin (Aspirin E.C. 81 Mg Tablet) 81 mg PO DAILY@0800 [facility] Last Admin: 03/10/20 09:19 Dose: 81 mg Documented by: Atorvastatin Calcium (Atorvastatin Calcium 40 Mg Tablet) 40 mg PO QHS [facility] Last Admin: 03/09/20 21:18 Dose: 40 mg Documented by: Bisacodyl (Bisacodyl 5 Mg Tablet) 10 mg PO DAILY PRN PRN PRN Reason: Constipation Bupropion HCl (Bupropion (Xl) 300 Mg [facility].Xl) [facility] Last Admin: 03/09/20 21:19 Dose: 300 mg Documented by: Clonazepam (Clonazepam 0.5 Mg Tablet) 0.5 mg PO BID [facility] Last Admin: 03/10/20 09:21 Dose: 0.5 mg Documented by: Diazepam (Diazepam 5 Mg Tablet) 5 mg PO TID PRN PRN PRN Reason: SPASMS Last Admin: 03/10/20 08:46 Dose: 5 mg Documented by: Docusate Sodium (Docusate Sodium 100 Mg Capsule) 200 mg PO BID PRN PRN PRN Reason: Constipation Enoxaparin Sodium (Enoxaparin 40 Mg/0.4 Ml Syringe) 40 mg SC DAILY [facility] Last Admin: 03/10/20 09:23 Dose: 40 mg Documented by: Cefazolin Sodium 2 gm/ Sodium (Chloride) 110 mls @ 150 mls/hr IV Q8 [facility] Ibuprofen (Ibuprofen 400 Mg Tablet) 400 mg PO Q4H PRN PRN PRN Reason: Pain Score 1-10/Temp > 100.7 F Last Admin: 03/08/20 05:33 Dose: 400 mg Documented by: Insulin Human Lispro (Insulin Lispro 100 Unit/Ml Insuln.Pen) 0 unit SC TIDAC [facility]; Protocol Last Admin: 03/10/20 12:13 Dose: 3 units Documented by: Lisinopril (Lisinopril 10 Mg Tablet) 10 mg PO DAILY [facility] Last Admin: 03/10/20 09:25 Dose: 10 mg Documented by: Metoprolol Tartrate (Metoprolol Tartrate 25 Mg Tablet) 25 mg PO BID [facility] Last Admin: 03/10/20 09:22 Dose: 25 mg Documented by: Morphine Sulfate (Morphine 2 Mg/Ml Syringe) 2 - 4 mg IV Q3H PRN PRN PRN Reason: Pain Score 6-10 Last Admin: 03/10/20 01:56 Dose: 2 mg Documented by: Morphine Sulfate (Morphine 2 Mg/Ml Syringe) 1 - 2 mg IV Q4H PRN PRN PRN Reason: Pain Score 4-5 Last Admin: 03/09/20 09:31 Dose: 2 mg Documented by: Non-Formulary Medication (Insulin Lispro) 1.4 unit SC [facility] Last Admin: 03/09/20 21:54 Dose: Not Given Documented by: Nutritional Formula (Lactose Free) (Glucerna Shake 120 Ml Liquid) 120 ml PO TIDCM [facility] Last Admin: 03/10/20 12:14 Dose: 120 ml Documented by: Ondansetron HCl (Ondansetron 4 Mg/2 Ml Vial) 4 mg IV Q8H PRN PRN PRN Reason: NAUSEA/VOMITING Last Admin: 03/09/20 05:51 Dose: 4 mg Documented by: Oxycodone HCl (Oxycodone 5 Mg Tablet) 5 mg PO Q4H PRN PRN PRN Reason: Pain Score 4-5 Last Admin: 03/08/20 23:32 Dose: 5 mg Documented by: Oxycodone HCl (Oxycodone 5 Mg Tablet) 10 mg PO Q4H PRN PRN PRN Reason: Pain Score 6-10 Last Admin: 03/10/20 09:29 Dose: 10 mg Documented by: Polyethylene Glycol (Polyethylene Glycol 3350 17 Gm Packet) 17 gm PO DAILY [facility] Last Admin: 03/10/20 09:25 Dose: 17 gm Documented by: Prochlorperazine Edisylate (Prochlorperazine 10 Mg/2 Ml Vial) 10 mg IV Q6H PRN PRN PRN Reason: Nausea/Vomiting Last Admin: 03/09/20 07:09 Dose: 10 mg Documented by: Sodium Chloride (0.9% Saline Lock 10 Ml Syringe) 10 - 40 ml IV UD PRN PRN Reason: SALINE FLUSH Last Admin: 03/10/20 08:46 Dose: 10 ml Documented by: Ticagrelor (Ticagrelor 90 Mg Tablet) 90 mg PO BID [facility] Last Admin: 03/10/20 09:20 Dose: 90 mg Documented by: Zolpidem Tartrate (Zolpidem Tartrate 5 Mg Tablet) 5 mg PO QHS PRN PRN PRN Reason: insomnia Medical Necessity - Tobacco Use Smoking Status: Former smoker Tobacco Use: Cigarettes - in the past, Chew - in the past Assessment/Plan All Active Problems Open wound of left lower leg with complication (Acute) Abscess of left lower leg (Acute) Cellulitis of left lower leg (Acute) 1. Diabetic abscess left lateral leg. 2. Diabetes mellitus. 3. 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 4. Former smoker. Wound is stable. No active bleeding noted. No residual infection noted. VAC applied yesterday. Taking Valium for muscle spasm from the VAC. Operative culture shows Staphylococcus aureus. He is on Cefazolin. After discharge, he will [facility]. If there is a plateau in the healing process, can proceed with delayed closure with skin grafting. For an elective skin graft procedure, the HgbA1c needs to be less than 8. Currently it is 9.9. Prealbumin 9.1. Anticipate increased metabolic demands. Encourage nutritional supplementation with protein to help the healing process.
--- NOTE | 2020-03-10 14:38 | CASEMGMT ---
KIANNA ESCOBEDO updated that patient will need walker at discharge. KIANNA ESCOBEDO in to discuss walker and DME setup. KIANNA ESCOBEDO reviewed DME companies and patient would like [employer]. KIANNA ESCOBEDO faxed script to [employer] and arranged for deliver to patient's room. KIANNA ESCOBEDO updated [facility] that patient will discharge tomorrow and next vac change will be Friday.
[2020-03-10] MEDS: Cefazolin 2 GM in 0.9% Normal Saline 100 ML IV ×2 (15:06→21:47)
[2020-03-10] MEDS: Acetaminophen 325 MG Tablet 650 MG PO (15:10)
--- NOTE | 2020-03-10 15:51 | PCM.PN.ID ---
Patient Problems: Active and Suspected Problems Cellulitis of left lower leg (Acute) Subjective: Feeling better, no fever, no n/v/d. - Physical Exam Vitals/I&O's: Vital Signs Temp Pulse Resp BP Pulse Ox 97.9 F 70 16 151/79 H 96 03/10/20 11:35 03/10/20 11:35 03/10/20 11:35 03/10/20 11:35 03/10/20 11:35 Oxygen Delivery Method Room Air Weight: 126.1 kg Body Mass Index (BMI) 33.8 Intake and Output for Last 24 Hours 03/08/20 03/09/20 03/10/20 23:59 23:59 23:59 Intake Total 2540 / 2540 5061.67 / 5061.67 1580 / 1580 Output Total 550 / 550 1200 / 1200 2775 / 2775 Balance 1989 3861.67 / 3861.67 -1195 / -1195 General: Alert, Cooperative, No apparent distress Lungs: Clear to auscultation, Normal air movement Cardiovascular: Regular rate, Regular Rhythm Abdomen: Soft, Non Tender, Non-Distended Skin: Ulcer/ Wound Microbiology Past 72 Hours 03/08/20 Unknown Other - Other Gram Stain - Final 03/08/20 Unknown Other - Other Wound Culture - Preliminary Staphylococcus aureus 03/07/20 15:55 Blood Culture (Wb) - Anticubital Right Blood Culture - Preliminary No growth in 48 hours. 03/07/20 15:50 Blood Culture (Wb) - Anticubital Left Blood Culture - Preliminary No growth in 48 hours. 03/08/20 11:20 Mucosa - Nose SARS-CoV-2 Antigen (Rapid) - Final Laboratory Results 03/09/20 16:39: POC Glucose 189 H 03/09/20 21:20: POC Glucose 233 H 03/10/20 06:46: WBC 4.7, RBC 4.26 L, Hgb 12.0 L, Hct 36.6 L, MCV 85.9, MCH 28.2, MCHC 32.8, RDW Std Deviation 39.0, RDW Coeff of Chandni 12.4, Plt Count 182, MPV 11.1, Immature Gran % (Auto) 0.900, Neut % (Auto) 65.3, Lymph % (Auto) 18.1 L, [place]y % (Auto) 13.6 H, Eos % (Auto) 1.7, Baso % (Auto) 0.4, Absolute Neuts (auto) 3.1, Absolute Lymphs (auto) 0.85, Nucleated RBC % 0 03/10/20 06:46: Sodium 138, Potassium 4.2, Chloride 108 H, Carbon Dioxide 28.0, Anion Gap 2 L, BUN 9, Creatinine 0.70, Estim Creat Clear Calc 168.78, Est GFR (MDRD) Af Amer 157, Est GFR (MDRD) Non-Af 130, BUN/Creatinine Ratio 12.8, Glucose 198 H, Calcium 8.3 L, Total Bilirubin 0.50, AST 8 L, ALT 13 L, Alkaline Phosphatase 60, Total Protein 6.2 L, Albumin 2.4 L, Globulin 3.8, Albumin/Globulin Ratio 0.6 L, Prealbumin 9.1 L 03/10/20 07:45: POC Glucose 189 H 03/10/20 11:39: POC Glucose 262 H Current Medications Acetaminophen (Acetaminophen 325 Mg Tablet) 650 mg PO Q6H PRN PRN PRN Reason: Pain Score 1-10/Temp > 100.7 F Last Admin: 03/10/20 15:10 Dose: 650 mg Documented by: Al Hydroxide/Mg Hydroxide (Mag Hydrox/Al Hydrox/Simeth 30 Ml Udc) 30 ml PO Q6H PRN PRN PRN Reason: Gastric Burning Aspirin (Aspirin E.C. 81 Mg Tablet) 81 mg PO DAILY@0800 [facility] Last Admin: 03/10/20 09:19 Dose: 81 mg Documented by: Atorvastatin Calcium (Atorvastatin Calcium 40 Mg Tablet) 40 mg PO QHS [facility] Last Admin: 03/09/20 21:18 Dose: 40 mg Documented by: Bisacodyl (Bisacodyl 5 Mg Tablet) 10 mg PO DAILY PRN PRN PRN Reason: Constipation Bupropion HCl (Bupropion (Xl) 300 Mg Tablet.Xl) 300 mg PO QHS [facility] Last Admin: 03/09/20 21:19 Dose: 300 mg Documented by: Clonazepam (Clonazepam 0.5 Mg Tablet) 0.5 mg PO BID [facility] Last Admin: 03/10/20 09:21 Dose: 0.5 mg Documented by: Diazepam (Diazepam 5 Mg Tablet) 5 mg PO TID PRN PRN PRN Reason: SPASMS Last Admin: 03/10/20 08:46 Dose: 5 mg Documented by: Docusate Sodium (Docusate Sodium 100 Mg Capsule) 200 mg PO BID PRN PRN PRN Reason: Constipation Enoxaparin Sodium (Enoxaparin 40 Mg/0.4 Ml Syringe) 40 mg SC DAILY [facility] Last Admin: 03/10/20 09:23 Dose: 40 mg Documented by: Cefazolin Sodium 2 gm/ Sodium (Chloride) 110 mls @ 150 mls/hr IV Q8 [facility] Last Admin: 03/10/20 15:06 Dose: 150 mls/hr Documented by: Ibuprofen (Ibuprofen 400 Mg Tablet) 400 mg PO Q4H PRN PRN PRN Reason: Pain Score 1-10/Temp > 100.7 F Last Admin: 03/08/20 05:33 Dose: 400 mg Documented by: Insulin Human Lispro (Insulin Lispro 100 Unit/Ml Insuln.Pen) 0 unit SC TIDAC [facility]; Protocol Last Admin: 03/10/20 12:13 Dose: 3 units Documented by: Lisinopril (Lisinopril 10 Mg Tablet) 10 mg PO DAILY [facility] Last Admin: 03/10/20 09:25 Dose: 10 mg Documented by: Metoprolol Tartrate (Metoprolol Tartrate 25 Mg Tablet) 25 mg PO BID [facility] Last Admin: 03/10/20 09:22 Dose: 25 mg Documented by: Morphine Sulfate (Morphine 2 Mg/Ml Syringe) 2 - 4 mg IV Q3H PRN PRN PRN Reason: Pain Score 6-10 Last Admin: 03/10/20 01:56 Dose: 2 mg Documented by: Morphine Sulfate (Morphine 2 Mg/Ml Syringe) 1 - 2 mg IV Q4H PRN PRN PRN Reason: Pain Score 4-5 Last Admin: 03/09/20 09:31 Dose: 2 mg Documented by: Non-Formulary Medication (Insulin Lispro) 1.4 unit SC UD [facility] Last Admin: 03/09/20 21:54 Dose: Not Given Documented by: Nutritional Formula (Lactose Free) (Glucerna Shake 120 Ml Liquid) 120 ml PO TIDCM [facility] Last Admin: 03/10/20 12:14 Dose: 120 ml Documented by: Ondansetron HCl (Ondansetron 4 Mg/2 Ml Vial) 4 mg IV Q8H PRN PRN PRN Reason: NAUSEA/VOMITING Last Admin: 03/09/20 05:51 Dose: 4 mg Documented by: Oxycodone HCl (Oxycodone 5 Mg Tablet) 5 mg PO Q4H PRN PRN PRN Reason: Pain Score 4-5 Last Admin: 03/08/20 23:32 Dose: 5 mg Documented by: Oxycodone HCl (Oxycodone 5 Mg Tablet) 10 mg PO Q4H PRN PRN PRN Reason: Pain Score 6-10 Last Admin: 03/10/20 15:10 Dose: 10 mg Documented by: Polyethylene Glycol (Polyethylene Glycol 3350 17 Gm Packet) 17 gm PO DAILY [facility] Last Admin: 03/10/20 09:25 Dose: 17 gm Documented by: Prochlorperazine Edisylate (Prochlorperazine 10 Mg/2 Ml Vial) 10 mg IV Q6H PRN PRN PRN Reason: Nausea/Vomiting Last Admin: 03/09/20 07:09 Dose: 10 mg Documented by: Sodium Chloride (0.9% Saline Lock 10 Ml Syringe) 10 - 40 ml IV UD PRN PRN Reason: SALINE FLUSH Last Admin: 03/10/20 08:46 Dose: 10 ml Documented by: Ticagrelor (Ticagrelor 90 Mg Tablet) 90 mg PO BID [facility] Last Admin: 03/10/20 09:20 Dose: 90 mg Documented by: Zolpidem Tartrate (Zolpidem Tartrate 5 Mg Tablet) 5 mg PO QHS PRN PRN PRN Reason: insomnia Medical Necessity - Tobacco Use Smoking Status: Former smoker Tobacco Use: Cigarettes - in the past, Chew - in the past Route of nutrition/ use of supplements: [] Nutritional Intake: [] IV Site: [] Diaz Catheter: [] - Assessment/Plan Antibiotics: [] Assessment/Plan: [] Active and Suspected Problems Cellulitis of left lower leg (Acute) Now s/p debridement by Dr. 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 Bcx here neg. Surg cx with MSSA. Narrow to cefazolin. Ok for d/c home on 5 more days keflex, wrote rx. Will follow, d/w rn case management
[2020-03-10] MEDS: Atorvastatin Calcium 40 MG Tablet PO (21:46)
[2020-03-10] MEDS: buPROPion (XL) 300 MG TABLET.XL PO (21:46)
[2020-03-10 22:10] LABS: Bedside Glucose 203 mg/dL (70-110)
[2020-03-10] MEDS: hydrALAZINE 20 MG/ML Vial 5 MG IV (22:38)
[2020-03-10] MEDS: proCHLORPERazine 10 MG/2 ML Vial IV (22:44)
[2020-03-11 00:56] LABS: Bedside Glucose 260 mg/dL (70-110)
[2020-03-11 03:25] VITALS: BP 163/80; PULSE 75
[2020-03-11] MEDS: hydrALAZINE 20 MG/ML Vial 5 MG IV (03:25)
[2020-03-11 03:32] VITALS: BP 163/80; PULSE 75; RESP 18; TEMP 36.7; O2SAT 99
[2020-03-11 06:05] LABS: Absolute Lymphocyte Count 0.98 X10^3/uL (0.83-4.51); Absolute Neutrophil Count 3.8 X10^3/uL (2.0-7.7); Basophil# 0.03 X10^3/uL; Basophil% 0.5 % (0-1); Eosinophil# 0.11 X10^3/uL; Hematocrit 37.9 % (40-54); Hemoglobin 12.4 g/dL (13.0-16.5); Lymphocyte # 0.98 X10^3/ul (4.0); Lymphocyte % 17.4 % (19-41); Mean Corp Hgb Conc 32.7 g/dL (32-36); Mean Corpuscular Hgb 28.2 pg (27.0-32.0); Mean Corpuscular Volume 86.3 fL (80-94); Mean Platelet Vol. 10.9 fl (6.2-12.0); Monocyte# 0.66 X10^3/uL; Monocyte% 11.7 % (0-10); NRBC Flagged by Analyzer 0 % (0-5); Neutrophil # 3.82 X10^3/uL (2.7-7.7); Neutrophil % 67.7 % (47-70); Platelet Count 240 K/mm3 (150-450); RBC Distribution Width CV 12.3 % (11.6-14.6); RBC Distribution Width SD 38.9 fl (35.1-43.9); Red Blood Count 4.39 M/mm3 (4.6-6.2); White Blood Count 5.6 K/mm3 (4.4-11.0)
[2020-03-11 06:19] LABS: ALB/GLOB Ratio 0.6 RATIO (0.9-2.4); AST(SGOT) 10 U/L (15-37); Alanine Aminotransfer ALT/SGPT 17 U/L (16-61); Albumin, Serum 2.6 g/dL (3.2-5.0); Alkaline Phosphatase 64 U/L (45-117); Anion Gap 4 (5-15); BUN 11 mg/dL (7-18); Calcium,Total 8.3 mg/dL (8.5-10.1); Chloride 104 mmol/L (98-107); Creatinine, Serum 0.69 mg/dL (0.70-1.30); EST Glomerular Filtration Rate 134 mL/min (>60); Est Glom Filt Rate - Afr Amer 162 mL/min (>60); Estimated Creatinine Clearance 171.22 ml/min; Glucose 183 mg/dL (74-106); Protein, Total 6.6 g/dL (6.4-8.2); Sodium Level 139 mmol/L (136-145)
[2020-03-11] MEDS: Cefazolin 2 GM in 0.9% Normal Saline 100 ML IV (06:27)
[2020-03-11] MEDS: oxyCODONE 5 MG Tablet 10 MG PO ×2 (06:32→10:47)
--- NOTE | 2020-03-11 07:35 | PCM.DC ---
- Discharge Diagnoses Current Active Problems: Current Active and Chronic Problems 1. Acute Staph Aureus LL Extremity Cellulitis with Abscess, failed outpatient antibiotic therapies complicated by Diabetes mellitus type II poorly controlled 2. Diabetes mellitus type II with radiculopathy, uncontrolled with insulin pump chronic placement (hemoglobin A1c 9.9%) 3. Hypertension 4. Hyperlipidemia 5. Anxiety 6. CAD s/p PCI x 2 You will use the following diet at home:: Calorie/Carbohydrate Controlled (specify 1200, 1400, etc) - ADA 1800/cardiac diet Your food should be the consistency of: Regular Your liquids should be the consistency of: Regular/Thin Discharge Activity: May not drive while taking narcotic pain medications., Use Walker May resume sexual activity in: No Restrictions Weight Bearing Status: Weight bearing as tolerated Keep extremity elevated above heart level: Left Leg Call your doctor if your incision/area has: Continuous Slow Oozing, Sudden Increased Bleeding, Increased Pain/ Swelling, Increased Redness, Foul Smelling Discharge, Swelling at the incision site Call your doctor if you observe: Fever of 101 or Higher, Inability to urinate, Inability to have a bowel movement, Shortness of breath, Dizziness, Fainting spells, Chest pain, Uncontrolled pain Instructions: Abscess Drainage, Cellulitis, Recognizing and Treating Wound Infection, Wound Care Additional Instructions: Please follow-up closely with your cardiographer as your HgbA1c is elevated above goal and you would benefit from increased insulin pump settings in addition to more strict lifestyle/diet changes. Please continue VAC placement and care as instructed per Dr. Allen with plan for changes at this time next on Friday per home health with the last on 03/11/2020 prior to your discharge. If it anytime you notice that the VAC has lost suction please immediately notify your home health and if they are unable to fix this immediately this will need to be taken down and a saline soaked gauze packed dressing will need to be placed instead which can be performed per your home health service. Please complete your antibiotic therapy ordered per Infectious disease (Dr. Sykes). Allergies/Adverse Reactions: Allergies No Known Allergies Allergy (Verified 03/07/20 15:04) Medications to take at Discharge Lisinopril [Zestril] 10 mg PO DAILY 11/19/18 Aspirin E.C. [Ecotrin] 81 mg PO DAILY@0800 03/07/20 Atorvastatin Calcium 40 mg PO QHS 03/07/20 Bupropion HCl [Bupropion Xl] 300 mg PO QHS 03/07/20 Clonazepam 0.5 mg PO BID 03/07/20 Insulin Lispro [Humalog] 1.4 unit IN CONT 03/07/20 Metoprolol Tartrate 25 mg PO BID 03/07/20 Ticagrelor [Brilinta] 90 mg PO BID 03/07/20 Cephalexin [Keflex] 500 mg PO 4X/DAY #20 cap 03/10/20 Diazepam [Valium] 5 mg PO TID PRN 5 Days #15 tablet 03/11/20 Glucerna Shake 120 ml PO TIDCM liquid 03/11/20 Oxycodone [Oxyir] 5 - 10 mg PO Q4H PRN PRN 5 Days #30 tablet 03/11/20 The following prescriptions were given: Cephalexin [Keflex] 500 mg PO 4X/DAY #20 cap Transmission Status: Received by [id number] Oxycodone [Oxyir] 5 - 10 mg PO Q4H PRN PRN 5 Days #30 tablet PRN Reason: Pain Score 6-10 Transmission Status: Sent to [id number] Diazepam [Valium] 5 mg PO TID PRN 5 Days #15 tablet PRN Reason: Muscle spasms with VAC Transmission Status: Received by [id number] Primary Care Physician: Rory Greenfield MD [Primary Care Provider] - Please follow up with your Primary Care Physician in: Follow-up within 3-5 days to review admission. Test Results: Test results from this visit will be discussed in further detail at your follow-up appointment, if applicable. Please Follow Up With: Price Allen MD When: Follow-[facility] this coming [facility]. Proposed Discharge Date: 03/11/20
--- NOTE | 2020-03-11 07:45 | DS.PCM_ITS ---
Discharge Date and Diagnosis - Problem List Patient Problems: Active and Suspected Problems Cellulitis of left lower leg (Acute) Date of Admission: 03/07/20 Date of Discharge: 03/11/20 - Primary Discharge Diagnosis Acute Problems: Active Problems 1. Acute Staph Aureus LL Extremity Cellulitis with Abscess, failed outpatient antibiotic therapies complicated by Diabetes mellitus type II poorly controlled 2. Diabetes mellitus type II with radiculopathy, uncontrolled with insulin pump chronic placement (hemoglobin A1c 9.9%) 3. Hypertension 4. Hyperlipidemia 5. Anxiety 6. CAD s/p PCI x 2 - Secondary Discharge Diagnosis Chronic Problems: Chronic Problems Former smoker (Chronic) History of streptococcal infection (Chronic) Type 2 diabetes mellitus (Chronic) Hypertension (Chronic) Intractable back pain (Chronic) Lumbar radiculopathy (Chronic) Anxiety (Chronic) Hospital Course and Treatment Consultations 03/09/20 06:43 Consult: Onc/Wound/digital sales director Routine Comment: Reason for Consult:: wound vac Dr. Allen Plastic Surgery Operations: - - OR 03/08/[address] Allen with Surgical preparation left later al leg with incision and drainage and excisional debridement diabetic abscess (72 cm2) Procedures: EKG Summary of Care Provided: The patient is a 44 y/o F w/ PMHx: CAD s/p PCI x 2, Hx prior osteomyelitis spine and endocarditis, Anxiety, Obesity, Diabetes mellitus type II, HTN, HLD, Chronic back pain with radiculopathy who presented to the [facility] ED on 03/07/20 with history of left lower extremity redness with no recent injury with outpatient treatment with doxycycline with no improvement with then transition to Bactrim and Keflex but despite ongoing antibiotic therapy patient with increased redness, swelling, pain. ED evaluation with CT left lower extremity with diffuse cellulitis with no visible abscess, no significant WBC elevation or left shift, admitted to medical surgical floor, maintained on IV vancomycin and Zosyn, obtained LLE duplex without evidence DVT, despite CT LLE without obvious abscess concern on evaluation for abscess with consultation with Dr. Allen and patient s/p OR 03/08/[address] Allen with I&D of complicated abscess, MRSA wound negative, OR culture with staph aureus, infectious disease 03/10/2020 transition from vancomycin and Zosyn to Ancef with plans continued 5-day regimen of oral Keflex at discharge. Patient VAC applied post-op and changed 03/11/2020 with next VAC change planned Friday per home health. Patient initially continue on own insulin pump but ran low, thus increased insulin sliding scale to high dose per discussion with patient, hemoglobin A1c 9.9% with nutrition consulted for education teaching, continued ADA, continued home gabapentin regimen, nutrition consulted for education and teaching. Patient instructed that he will need his pump settings altered and amenable to early follow-up after discharge with his mission commander and again strongly discussed lifestyle and diet changes. Patient discharged to home with home health in stable improved condition with PCP follow-up within 3-5 days and planned follow-up with Dr. Allen in the [facility] the coming week. DAY OF DISCHARGE PROGRESS NOTE: Subjective: Patient without acute event overnight per self and nursing report. Patient notes pain is controlled. Back with continued serosanguineous output only. Patient denies fever, chills, nausea, emesis, abdominal pain, chest pain or dyspnea. Patient agreeable to discharge to home with home health following 03/11/2020 VAC change with neck change planned Friday. Patient will be discharged with follow-up with primary care physician within 3-5 days in addition to follow-up with Dr. Allen the coming week at the wound care center. Objective: T 98.2, heart rate 79, BP 159/90, respiratory rate 18, 98% on room air. Physical Examination: General: awake, alert, oriented x 3 and cooperative, seated upright in the OR bedside chair, no acute distress. Skin: normal color, turgor, no icterus, cyanosis except left lower extremity status post OR with dressing in place, VAC in place, serosanguineous output in the canister. HEENT: AT/NC, EOMI, PERRLA, MMM. Lungs: CTA bilaterally, moderate effort, mild decrease BL bases, no rales, ronchi or wheezing. Heart: Regular rate and rhythm; no gallop, rub audible. Abdomen: soft, BS, NTTP, ND, normal BS, no HSM. Extremities: no cyanosis, no clubbing, see skin, lower extremity edema lessening, VAC in place as noted. Neurological: patient awake, alert, oriented x 3; cognitive function intact; pupils equally reactive to light and accomodation; cranial nerves II-XII grossly normal, moving all 4 extremities, no focal deficits, mildly global decrease given acute presentation. Psychiatric: affect appears normal, no acute evidence of depressive or anxiety feelings. Assessment and Plan: Please see hospital summary above. Patient Problems: Active and Suspected Problems Cellulitis of left lower leg (Acute) - Physical Exam Vitals/I&O's: Vital Signs Temp Pulse Resp BP Pulse Ox 98.1 F 75 18 163/80 H 99 03/11/20 03:32 03/11/20 03:32 03/11/20 03:32 03/11/20 03:32 03/11/20 03:32 Oxygen Delivery Method Room Air Weight: 278 lb 0.046 oz Body Mass Index (BMI) 33.8 Intake and Output for Last 24 Hours 03/09/20 03/10/20 03/11/20 23:59 23:59 23:59 Intake Total 5061.67 / 5061.67 2600 / 3000 850 / 850 Output Total 1200 / 1200 3975 / 4875 1800 / 1800 Balance 3861.67 / 3861.67 -1375 / -1875 -950 / -950 Microbiology Past 72 Hours 03/08/20 Unknown Other - Other Gram Stain - Final 03/08/20 Unknown Other - Other Wound Culture - Preliminary Staphylococcus aureus 03/08/20 Unknown Other - Other Anaerobic Culture - Final No anaerobic bacteria isolated. 03/07/20 15:55 Blood Culture (Wb) - Anticubital Right Blood Culture - Preliminary No growth in 48 hours. 03/07/20 15:50 Blood Culture (Wb) - Anticubital Left Blood Culture - Preliminary No growth in 48 hours. 03/08/20 11:20 Mucosa - Nose SARS-CoV-2 Antigen (Rapid) - Final Laboratory Results 03/10/20 06:46: Sodium 138, Potassium 4.2, Chloride 108 H, Carbon Dioxide 28.0, Anion Gap 2 L, BUN 9, Creatinine 0.70, Estim Creat Clear Calc 168.78, Est GFR (MDRD) Af Amer 157, Est GFR (MDRD) Non-Af 130, BUN/Creatinine Ratio 12.8, Glucose 198 H, Calcium 8.3 L, Total Bilirubin 0.50, AST 8 L, ALT 13 L, Alkaline Phosphatase 60, Total Protein 6.2 L, Albumin 2.4 L, Globulin 3.8, Albumin/Globulin Ratio 0.6 L, Prealbumin 9.1 L 03/10/20 07:45: POC Glucose 189 H 03/10/20 11:39: POC Glucose 262 H 03/10/20 17:14: POC Glucose 260 H 03/10/20 22:02: POC Glucose 203 H 03/11/20 05:35: WBC 5.6, RBC 4.39 L, Hgb 12.4 L, Hct 37.9 L, MCV 86.3, MCH 28.2, MCHC 32.7, RDW Std Deviation 38.9, RDW Coeff of Chandni 12.3, Plt Count 240, MPV 10.9, Immature Gran % (Auto) 0.700, Neut % (Auto) 67.7, Lymph % (Auto) 17.4 L, [place] % (Auto) 11.7 H, Eos % (Auto) 2.0, Baso % (Auto) 0.5, Absolute Neuts (auto) 3.8, Absolute Lymphs (auto) 0.98, Nucleated RBC % 0 03/11/20 05:35: Sodium 139, Potassium 4.0, Chloride 104, Carbon Dioxide 31.0, Anion Gap 4 L, BUN 11, Creatinine 0.69 L, Estim Creat Clear Calc 171.22, Est GFR (MDRD) Af Amer 162, Est GFR (MDRD) Non-Af 134, BUN/Creatinine Ratio 16.0, Glucose 183 H, Calcium 8.3 L, Total Bilirubin 0.40, AST 10 L, ALT 17, Alkaline Phosphatase 64, Total Protein 6.6, Albumin 2.6 L, Globulin 4.0, Albumin/Globulin Ratio 0.6 L Current Medications Acetaminophen (Acetaminophen 325 Mg Tablet) 650 mg PO Q6H PRN PRN PRN Reason: Pain Score 1-10/Temp > 100.7 F Last Admin: 03/10/20 15:10 Dose: 650 mg Documented by: Al Hydroxide/Mg Hydroxide (Mag Hydrox/Al Hydrox/Simeth 30 Ml Udc) 30 ml PO Q6H PRN PRN PRN Reason: Gastric Burning Aspirin (Aspirin E.C. 81 Mg Tablet) 81 mg PO DAILY@0800 [facility] Last Admin: 03/10/20 09:19 Dose: 81 mg Documented by: Atorvastatin Calcium (Atorvastatin Calcium 40 Mg Tablet) 40 mg PO QHS [facility] Last Admin: 03/10/20 21:46 Dose: 40 mg Documented by: Bisacodyl (Bisacodyl 5 Mg Tablet) 10 mg PO DAILY PRN PRN PRN Reason: Constipation Bupropion HCl (Bupropion (Xl) 300 Mg Tablet.Xl) 300 mg PO QHS [facility] Last Admin: 03/10/20 21:46 Dose: 300 mg Documented by: Clonazepam (Clonazepam 0.5 Mg Tablet) 0.5 mg PO BID [facility] Last Admin: 03/10/20 21:47 Dose: 0.5 mg Documented by: Diazepam (Diazepam 5 Mg Tablet) 5 mg PO TID PRN PRN PRN Reason: SPASMS Last Admin: 03/10/20 08:46 Dose: 5 mg Documented by: Docusate Sodium (Docusate Sodium 100 Mg Capsule) 200 mg PO BID PRN PRN PRN Reason: Constipation Enoxaparin Sodium (Enoxaparin 40 Mg/0.4 Ml Syringe) 40 mg SC DAILY [facility] Last Admin: 03/10/20 09:23 Dose: 40 mg Documented by: Hydralazine HCl (Hydralazine 20 Mg/Ml Vial) 5 mg IV Q4H PRN PRN PRN Reason: SBP > 160 Last Admin: 03/11/20 03:25 Dose: 5 mg Documented by: Cefazolin Sodium 2 gm/ Sodium (Chloride) 110 mls @ 150 mls/hr IV Q8 [facility] Last Admin: 03/11/20 06:27 Dose: 150 mls/hr Documented by: Ibuprofen (Ibuprofen 400 Mg Tablet) 400 mg PO Q4H PRN PRN PRN Reason: Pain Score 1-10/Temp > 100.7 F Last Admin: 03/08/20 05:33 Dose: 400 mg Documented by: Insulin Human Lispro (Insulin Lispro 100 Unit/Ml Insuln.Pen) 0 unit SC TIDAC [facility]; Protocol Last Admin: 03/10/20 18:11 Dose: 6 units Documented by: Lisinopril (Lisinopril 10 Mg Tablet) 10 mg PO DAILY [facility] Last Admin: 03/10/20 09:25 Dose: 10 mg Documented by: Metoprolol Tartrate (Metoprolol Tartrate 25 Mg Tablet) 25 mg PO BID [facility] Last Admin: 03/10/20 21:46 Dose: 25 mg Documented by: Morphine Sulfate (Morphine 2 Mg/Ml Syringe) 2 - 4 mg IV Q3H PRN PRN PRN Reason: Pain Score 6-10 Last Admin: 03/10/20 21:57 Dose: 4 mg Documented by: Morphine Sulfate (Morphine 2 Mg/Ml Syringe) 1 - 2 mg IV Q4H PRN PRN PRN Reason: Pain Score 4-5 Last Admin: 03/09/20 09:31 Dose: 2 mg Documented by: Non-Formulary Medication (Insulin Lispro) 1.4 unit SC UD [facility] Last Admin: 03/10/20 22:03 Dose: Not Given Documented by: Nutritional Formula (Lactose Free) (Glucerna Shake 120 Ml Liquid) 120 ml PO TIDCM [facility] Last Admin: 03/10/20 17:25 Dose: 120 ml Documented by: Ondansetron HCl (Ondansetron 4 Mg/2 Ml Vial) 4 mg IV Q8H PRN PRN PRN Reason: NAUSEA/VOMITING Last Admin: 03/09/20 05:51 Dose: 4 mg Documented by: Oxycodone HCl (Oxycodone 5 Mg Tablet) 5 mg PO Q4H PRN PRN PRN Reason: Pain Score 4-5 Last Admin: 03/08/20 23:32 Dose: 5 mg Documented by: Oxycodone HCl (Oxycodone 5 Mg Tablet) 10 mg PO Q4H PRN PRN PRN Reason: Pain Score 6-10 Last Admin: 03/11/20 06:32 Dose: 10 mg Documented by: Polyethylene Glycol (Polyethylene Glycol 3350 17 Gm Packet) 17 gm PO DAILY [facility] Last Admin: 03/10/20 09:25 Dose: 17 gm Documented by: Prochlorperazine Edisylate (Prochlorperazine 10 Mg/2 Ml Vial) 10 mg IV Q6H PRN PRN PRN Reason: Nausea/Vomiting Last Admin: 03/10/20 22:44 Dose: 10 mg Documented by: Sodium Chloride (0.9% Saline Lock 10 Ml Syringe) 10 - 40 ml IV UD PRN PRN Reason: SALINE FLUSH Last Admin: 03/10/20 08:46 Dose: 10 ml Documented by: Ticagrelor (Ticagrelor 90 Mg Tablet) 90 mg PO BID [facility] Last Admin: 03/10/20 21:47 Dose: 90 mg Documented by: Zolpidem Tartrate (Zolpidem Tartrate 5 Mg Tablet) 5 mg PO QHS PRN PRN PRN Reason: insomnia Discharge Activity: May not drive while taking narcotic pain medications., Use Walker May resume sexual activity in: No Restrictions Weight Bearing Status: Weight bearing as tolerated Keep extremity elevated above heart level: Left Leg Call your doctor if your incision/area has: Continuous Slow Oozing, Sudden Increased Bleeding, Increased Pain/ Swelling, Increased Redness, Foul Smelling Discharge, Swelling at the incision site Call your doctor if you observe: Fever of 101 or Higher, Inability to urinate, Inability to have a bowel movement, Shortness of breath, Dizziness, Fainting spells, Chest pain, Uncontrolled pain Home Medications: Medications to take at Discharge Lisinopril [Zestril] 10 mg PO DAILY 11/19/18 Aspirin E.C. [Ecotrin] 81 mg PO DAILY@0800 03/07/20 Atorvastatin Calcium 40 mg PO QHS 03/07/20 Bupropion HCl [Bupropion Xl] 300 mg PO QHS 03/07/20 Clonazepam 0.5 mg PO BID 03/07/20 Insulin Lispro [Humalog] 1.4 unit IN CONT 03/07/20 Metoprolol Tartrate 25 mg PO BID 03/07/20 Ticagrelor [Brilinta] 90 mg PO BID 03/07/20 Cephalexin [Keflex] 500 mg PO 4X/DAY #20 cap 03/10/20 Diazepam [Valium] 5 mg PO TID PRN 5 Days #15 tab 03/11/20 Glucerna Shake 120 ml PO TIDCM liquid 03/11/20 Oxycodone [Oxyir] 5 - 10 mg PO Q4H PRN PRN 5 Days #30 tab 03/11/20 Following Prescriptions Were Given to Patient: Cephalexin [Keflex] 500 mg PO 4X/DAY #20 cap [id number] Oxycodone [Oxyir] 5 - 10 mg PO Q4H PRN PRN 5 Days #30 tab PRN Reason: Pain Score 6-10 Transmission Status[id number] Diazepam [Valium] 5 mg PO TID PRN 5 Days #15 tab PRN Reason: Muscle spasms with VAC Transmission Status: Received by [id number] Primary Care Physician: Rory Greenfield MD [Primary Care Provider] - Please follow up with your Primary Care Physician in: Follow-up within 3-5 days to review admission. Please Follow Up With: Price Allen MD When: Follow-up this coming week at [facility]. Patient Instructions: Wound Care, Recognizing and Treating Wound Infection, Abscess Drainage, Cellulitis Disposition: Home with Home Health Minutes spent on discharge:: 35 Patient Condition:: Fair Medical Necessity - Tobacco Use Smoking Status: Former smoker Tobacco Use: Cigarettes - in the past, Chew - in the past Meaningful Use Info Meaningful Use Diagnoses (Choose all that apply): None applicable Inpatient E&M: 64467 Disch Hosp
[2020-03-11 08:00] VITALS: BP 159/90; PULSE 79; PULSE 80; RESP 18; TEMP 36.8; O2SAT 18
[2020-03-11 08:10] LABS: Bedside Glucose 204 mg/dL (70-110)
[2020-03-11] MEDS: proCHLORPERazine 10 MG/2 ML Vial IV (08:10)
[2020-03-11 08:13] VITALS: PULSE 80
[2020-03-11] MEDS: Aspirin E.C. 81 MG Tablet PO (08:13)
[2020-03-11] MEDS: Glucerna Shake 120 ML LIQUID PO (08:13)
[2020-03-11] MEDS: Metoprolol Tartrate 25 MG Tablet PO (08:13)
[2020-03-11] MEDS: Lisinopril 10 MG Tablet PO (08:14)
[2020-03-11] MEDS: Enoxaparin 40 MG/0.4 ML Syringe SC (08:14)
[2020-03-11] MEDS: Insulin Lispro 100 UNIT/ML INSULN.PEN SC (08:15)
[2020-03-11] MEDS: Polyethylene Glycol 3350 17 GM PACKET PO (08:15)
[2020-03-11] MEDS: Acetaminophen 325 MG Tablet 650 MG PO (08:16)
[2020-03-11] MEDS: clonazePAM 0.5 MG Tablet PO (10:48)
[2020-03-11] MEDS: Ibuprofen 400 MG Tablet PO (10:48)
[2020-03-11] MEDS: TICAGRELOR 90 MG TABLET PO (10:49)
[2020-03-11 12:00] VITALS: TEMP 37.1
--- NOTE | 2020-03-11 14:28 | NURSING ---
pt called on way home states i thought you said i had an antibiotic script to pick , they said there is no antibiotic there to fruit picker informed pt per D/c inst he was to be on cephalexin 500 mg 4x day #20 pills (5 days) this nurse called [facility] and spoke with Jaxon in pharmacy-he said there WAS a script put on hold (insurance said too early to be filled) and he has tried to call pt back but can not reach them This nurse was able to reach pt on his cell phone and he will call back ana and make arrangements for fruit picker of antibiotic
--- NOTE | 2020-03-13 17:11 | CASEMGMT ---
KIANNA ESCOBEDO Discharge Follow-up Phone Call: KOTA: Herminio Strata: 3 Call Date: 03/13/2020 Discharge Date: 03/11/2020 Time of Call: 1710 Admitting Diagnosis: Cellulitis w/abscess Discharge follow-up call placed to pt. Pt states he has been getting along since discharge. Pt states home health was out today and completed his wound vac changed. Pt states he has been more strict with his insulin pump and his blood sugars have been coming down. Pt has a follow-up appointment with ID on 03/15 but he has not made an appointment with his PCP. Pt states he is to go to the wound center next Friday but he does not know what time. An appointment is not listed in [facility]. Will contact the wound center in AM and follow-up [facility] pt regarding appointment time. Pt denied any further questions or concerns at this time. Tamanna Fierro RN CM
--- NOTE | 2020-03-14 09:42 | CASEMGMT ---
KIANNA ESCOBEDO follow-up: Call to the Wound Center made. Pt did not have an appointment scheduled. Appointment made for Friday, 03/20 at 0800. Call placed to patient who was agreeable to the date and time and to [facility] to inform of appointment. Tamanna Fierro RN
== END 2020-03-11 13:20 | disposition home health service (06) | DRG 623 ==
LOC: ED 17:05 → MS3 17:47
PROVIDERS: Surgery; Emergency Provider Emergency Medicine; PCP Family Medicine; Visit Provider Family Medicine
PROC: 0KBT0ZZ Excision of Left Lower Leg Muscle, Open Approach (ICD-10-PCS; principal; 2020-03-08 13:05)
DX: E11.628 Type 2 diabetes mellitus with other skin complications (principal); L02.416 Cutaneous abscess of left lower limb; L03.116 Cellulitis of left lower limb; B95.61 Methicillin susceptible Staphylococcus aureus infection as the cause of diseases classified elsewhere; E11.42 Type 2 diabetes mellitus with diabetic polyneuropathy; E11.65 Type 2 diabetes mellitus with hyperglycemia; M62.838 Other muscle spasm; I25.10 Atherosclerotic heart disease of native coronary artery without angina pectoris; I10 Essential (primary) hypertension; E78.5 Hyperlipidemia, unspecified; M54.16 Radiculopathy, lumbar region; G89.29 Other chronic pain; F41.9 Anxiety disorder, unspecified; E66.9 Obesity, unspecified; Z68.33 Body mass index [BMI] 33.0-33.9, adult; Z96.41 Presence of insulin pump (external) (internal); Z79.02 Long term (current) use of antithrombotics/antiplatelets; Z79.82 Long term (current) use of aspirin; Z79.899 Other long term (current) drug therapy; Z87.891 Personal history of nicotine dependence; Z95.5 Presence of coronary angioplasty implant and graft
CPT/HCPCS: 36415; 73701; 80048; 80053; 80202; 82962; 83036; 83605; 84134; 85025; 87040; 87070; 87075; 87077; 87102; 87186; 87205; 87206; 87426; 87640; 87641; 88304; 88305; 88312; 93005; 93971; 94762; 97802; 99285; J7040; J7050; J7120; Q9967; A4216; J2405

== ENCOUNTER 2020-03-20 07:56 | Outpatient (RCR) | payer BC, MEDICAID, SELFPAY ==
[2020-03-08 09:11] VITALS: BMI 33.8
[2020-03-20 08:06] VITALS: BP 150/104; PULSE 72; TEMP 35.9
--- NOTE | 2020-03-20 13:01 | PCM.WC.PN ---
(1) Open wound of left lower leg with complication Status: Acute Code(s): S81.802A - Unspecified open wound, left lower leg, initial encounter (2) Type 2 diabetes mellitus Status: Chronic Qualifiers: Code(s): E11.9 - Type 2 diabetes mellitus without complications (3) Former smoker Status: Chronic Code(s): Z87.891 - Personal history of nicotine dependence Type of Wound Date of Service: 03/20/20 Chief Complaint: Surgical wound left lateral leg from a diabetic abscess History of Wound: Patient was admitted on 03/07/20 to the hospital after failing outpatient treatment for cellulitis and an abcess. On 03/08/20 he went to surgery for Surgical preparation left lateral leg with incision and drainage and excisional debridement diabetic abscess (72 cm2). His wound culture was positive for Staphylococcus aureus. He as treated with Cefazolin and discharged on Keflex. Prealbumin on 03/10/20 was 9.1. He was discharged home on 03/11/20. Wound care- Wound VAC at 150 mmHg. Has home health 3 times per week. Today he denies fever, chills, nausea and vomiting. Progress of Wound: Stable - Physical Exam Vital Signs Temp Pulse BP 96.6 F L 72 150/104 H 03/20/20 08:06 03/20/20 08:06 03/20/20 08:06 General: Alert, Oriented x3, Cooperative HEENT: Atraumatic Oral: Moist Mucosa Lungs: Normal air movement Cardiovascular: Regular rate Abdomen: Soft Extremities: Capillary Refill Less than 3 Seconds, Edema Skin: Ulcer/ Wound - Left lateral leg wound is beefy pink in color. No active bleeding. Wound Measurements and Assessment WC - Nurse 1 - General Ulcer Measurement Start: 03/20/20 08:06 Freq: Status: Active Protocol: Activity Type Activity Date Activity User E-Sign Co-Sign Detail Recorded Client Recorded Date Recorded By Document 03/20/20 08:06 NATALI [id number] 03/20/20 08:27 NATALI 03/20/20 08:06 Wound Center Nurse 1 [Ulcer Assessment] #1 Left Lateral LE -Combined with other wound No -Current Size (cm) - Length 9 -Current Size (cm) - Width 9 -Current Size (cm) - Depth 0.5 -Total Square Cm 81 -Exudate Amt Large -Exudate Type Serosanguineous -Wound Margin Distinct, Outline Attached -Granulation Amt Large (67-100%) -Granulation Quality Red -Necrosis Amt Medium (34-66%) -Necrotic Tissue Type Adherent Slough -Texture (Radha-wound Skin Appearance) No Abnormality -Moisture (Radha-wound Skin Appearance Assessed,Dry/ ) Scaly -Color (Radha-wound Skin Appearance) No Abnormality -Temperature (Radha-wound Skin No Abnormality Appearance) (Pt Warm) -Tenderness on Palpation (Radha-wound No Skin Appearance) -Ulcer Cleansing soapy water -Foul Odor after Cleansing No -Anesthetic Used 4% Lidocaine Solution [Edema Assessment] -Right Calf (cm) 38.5 -Right Ankle (cm) 24.5 -Left Calf (cm) 39 -Left Ankle (cm) 24 WC - Nurse 2 - General Ulcer CM Notes Start: 03/20/20 08:06 Freq: Status: Active Protocol: Activity Type Activity Date Activity User E-Sign Co-Sign Detail Recorded Client Recorded Date Recorded By Document 03/20/20 08:56 [id number] 03/20/20 08:59 03/20/20 08:56 Wound Center Nurse 2 [Procedure/Treatment] #1 Left Lateral LE -Time 08:57 -Correct Patient Yes -Correct Side, Site, Position Yes -Correct Procedure Yes -Procedure Performed Yes -Type of Procedure Debridement -Clinical Debridement Muscle / Fascia -Tissue Removed Muscle -Post Debridement (cm) - Length 9.3 -Post Debridement (cm) - Width 9 -Post Debridement (cm) - Depth 1.0 -Total Square (Post) (cm) 83.7 -Area of Debridement (cm) - Length 9.3 -Area of Debridement (cm) - Width 9 -Total Square (Area) (cm) 83.7 -Tunneling No -Undermining/Tunneling No -Circular Undermining No -Wound/Ulcer Outcome Not Healed -Ulcer Cleansing Rinsed/ Irrigated with Saline -Foul Odor after Cleansing No -Bioengineered Tissue No -Bleeding Controlled with Pressure -Offloading No -Treatment Response Procedure Tolerated Well -Debridement - Muscle / Fascia, 1st Yes 20sq cm -Debridement, Muscle/Fascia, ea addt' 4 l 20sq cm or part thereof [See Physician Procedure note for Specifics] Pain Scale: 0-10 Numeric [Pain] -Is Patient Pain Free? Yes - Nurse 3 - General Ulcer D/C NN Start: 03/20/20 08:06 Freq: Status: Active Protocol: Activity Type Activity Date Activity User E-Sign Co-Sign Detail Recorded Client Recorded Date Recorded By Document 03/20/20 09:39 NATALI [id number] 03/20/20 09:41 NATALI 03/20/20 09:39 Wound Care Nurse 3 [Wound Dressing] #1 Left Lateral LE -Ulcer Cleansing Rinsed/ Irrigated with Saline -Foul Odor after Cleansing No -Negative Pressure Wound Therapy Continue -Setting (mmHg) 150 -Negative Pressure is Continuous -Primary Dressing Covered/Secured Other with -Other Covering wond drape -NPWT Application Charge ($) NPWT </= 50 sq cm Pain Scale: 0-10 Numeric [Pain] -Is Patient Pain Free? Yes Teaching: Wound Center [Wound Center Education] (Items with an * have Printed Materials Available- Please identify what is given to patient under the Teaching materials given to patient and caregiver Section. Dressing Your Wound -Person Taught Patient,Family -Teaching Method Discussion, Demonstration -Response to teaching Verbalize understanding - Visit Discharge [Visit Discharge Information] -Discharge Condition Stable -Ambulatory Status Ambulatory -Transportation Private Auto -Accompanied by -Medication Reconcilliation completed No & provided to patient/care provider -Clinical Summary of Care Provided Yes Musculoskeletal: Tenderness Neurological: Cranial nerves II-XII grossly intact Psych/Mental Status: Normal Affect, Appropriate Debridement Note Post-Debridement Measurements/Treatment - Nurse 2 - General Ulcer CM Notes Start: 03/20/20 08:06 Freq: Status: Active Protocol: Activity Type Activity Date Activity User E-Sign Co-Sign Detail Recorded Client Recorded Date Recorded By Document 03/20/20 08:56 LADAN [id number] 03/20/20 08:59 LADAN 03/20/20 08:56 Wound Center Nurse 2 #1 Left Lateral LE -Time 08:57 -Correct Patient Yes -Correct Side, Site, Position Yes -Correct Procedure Yes -Procedure Performed Yes -Type of Procedure Debridement -Clinical Debridement Muscle / Fascia -Tissue Removed Muscle -Post Debridement (cm) - Length 9.3 -Post Debridement (cm) - Width 9 -Post Debridement (cm) - Depth 1.0 -Total Square (Post) (cm) 83.7 -Area of Debridement (cm) - Length 9.3 -Area of Debridement (cm) - Width 9 -Total Square (Area) (cm) 83.7 -Tunneling No -Undermining/Tunneling No -Circular Undermining No -Wound/Ulcer Outcome Not Healed -Ulcer Cleansing Rinsed/ Irrigated with Saline -Foul Odor after Cleansing No -Bioengineered Tissue No -Bleeding Controlled with Pressure -Offloading No -Treatment Response Procedure Tolerated Well -Debridement - Muscle / Fascia, 1st Yes 20sq cm -Debridement, Muscle/Fascia, ea addt'l 4 20sq cm or part thereof Pain Scale: 0-10 Numeric Is Patient Pain Free? Yes - Nurse 3 - General Ulcer D/C NN Start: 03/20/20 08:06 Freq: Status: Active Protocol: Activity Type Activity Date Activity User E-Sign Co-Sign Detail Recorded Client Recorded Date Recorded By Document 03/20/20 09:39 NATALI [id number] 03/20/20 09:41 NATALI 03/20/20 09:39 Wound Care Nurse 3 #1 Left Lateral LE -Ulcer Cleansing Rinsed/ Irrigated with Saline -Foul Odor after Cleansing No -Negative Pressure Wound Therapy Continue -Setting (mmHg) 150 -Negative Pressure is Continuous -Primary Dressing Covered/Secured with Other -Other Covering wond drape -NPWT Application Charge ($) NPWT </= 50 sq cm Pain Scale: 0-10 Numeric Is Patient Pain Free? Yes Teaching: Wound Center Dressing Your Wound -Person Taught Patient,Family -Teaching Method Discussion, Demonstration -Response to teaching Verbalize understanding WC - Visit Discharge Discharge Condition Stable Ambulatory Status Ambulatory Transportation Private Auto Accompanied by Medication Reconcilliation completed & No provided to patient/care provider Clinical Summary of Care Provided Yes Wound debrided: lateral leg Laterality: Left Type of Debridement: Excisional debridement Anesthesia Used: 5% Lidocaine Gel Depth: Down to and including healthy tissue, in the subcutaneous layer, to muscle Percentage of wound debrided: 100 Instrument Used: 7mm curette Tissue Removed: Subcutaneous tissue and slough Severity: Fat Layer Exposed Amount of bleeding with debridement: Mild Bleeding Controlled with: Pressure Patient tolerated procedure well Subcutaneous tissue and slough into the muscle. Assessment/Plan Active Problems Former smoker (Chronic) Open wound of left lower leg with complication (Acute) Type 2 diabetes mellitus (Chronic) Assessment: 1. Opened wound left lower leg with complication. 2. Diabetes mellitus, Type 2, uncontrolled. 3. Former smoker. Plan: Patient was seen and evaluated in the wound center today and obtained a subcutaneous debridement which he tolerated well. Wound care - Wound VAC at 150 mmHg suction. He has home health to help with his wound VAC dressings. He has finished is Keflex for his operative culture that was positive for Staphylococcus aureus. Renewed pain medication Percocet (28 tabs) and Valium (21 tabs). PDMP reviewed. Follow up 2 weeks. [id number]: [id number] Global Visit
== END 2020-03-27 23:59 ==
LOC: WC 07:56
PROVIDERS: PCP Family Medicine; Referring Provider Surgery; Visit Provider Nurse Practitioner Family
DX: T81.49XA Infection following a procedure, other surgical site, initial encounter (principal); L02.416 Cutaneous abscess of left lower limb; E11.9 Type 2 diabetes mellitus without complications; Z87.891 Personal history of nicotine dependence
CPT/HCPCS: 11043; 11046; 97605; 99213; G0463

== ENCOUNTER 2020-04-24 08:00 | Outpatient (RCR) | payer BC, MEDICAID, SELFPAY ==
[2020-03-08 09:11] VITALS: BMI 33.8
[2020-03-28 00:44] VITALS: BP 150/104; PULSE 72; TEMP 35.9
[2020-04-03 08:08] VITALS: BP 155/103; PULSE 79; RESP 16; TEMP 35.8; BMI 33.8
--- NOTE | 2020-04-03 13:01 | PN.PCM_ITS ---
(1) Open wound of left lower leg with complication Status: Acute Code(s): S81.802A - Unspecified open wound, left lower leg, initial encounter (2) Type 2 diabetes mellitus Status: Chronic Qualifiers: Code(s): E11.9 - Type 2 diabetes mellitus without complications (3) Former smoker Status: Chronic Code(s): Z87.891 - Personal history of nicotine dependence Type of Wound Date of Service: 04/03/20 Chief Complaint: Surgical wound left lateral leg from a diabetic abscess History of Wound: Patient was admitted on 03/07/20 to the hospital after failing outpatient treatment for cellulitis and an abcess. On 03/08/20 he went to surgery for Surgical preparation left lateral leg with incision and drainage and excisional debridement diabetic abscess (72 cm2). His wound culture was positive for Staphylococcus aureus. He as treated with Cefazolin and discharged on Keflex. Prealbumin on 03/10/20 was 9.1. He was discharged home on 03/11/20. Wound care- Wound VAC at 150 mmHg. Has home health 3 times per week. Today he denies fever, chills, nausea and vomiting. Progress of Wound: Improved. - Physical Exam Vital Signs Temp Pulse Resp BP 96.4 F L 79 16 155/103 H 04/03/20 08:08 04/03/20 08:08 04/03/20 08:08 04/03/20 08:08 General: Alert, Oriented x3, Cooperative HEENT: Atraumatic Oral: Moist Mucosa Lungs: Normal air movement Cardiovascular: Regular rate Extremities: Capillary Refill Less than 3 Seconds, Edema Skin: Ulcer/ Wound - Left lateral leg wound is beefy pink with decreased depth. Wound Measurements and Assessment WC - Nurse 1 - General Ulcer Measurement Start: 04/03/20 08:08 Freq: Status: Active Protocol: Activity Type Activity Date Activity User E-Sign Co-Sign Detail Recorded Client Recorded Date Recorded By Document 04/03/20 08:08 [facility] [id number] 04/03/20 08:19 [facility] 04/03/20 08:08 Wound Center Nurse 1 [Ulcer Assessment] #1 Left Lateral LE -Combined with other wound No -Current Size (cm) - Length 8.5 -Current Size (cm) - Width 9.5 -Current Size (cm) - Depth 0.7 -Total Square Cm 80.75 -Photo Taken No -Epithelialization None Present -Tunneling No -Undermining/Tunneling No -Circular Undermining No -Exudate Amt Large -Exudate Type Serosanguineous -Wound Margin Distinct, Outline Attached -Granulation Amt Medium (34-66%) -Granulation Quality Red -Slough/Fibrin Yes -Necrosis Amt Small (1-33%) -Necrotic Tissue Type Adherent Slough -Structure Exposed Tendon -Texture (Radha-wound Skin Appearance) Assessed, Scarring -Moisture (Radha-wound Skin Appearance Assessed ) -Color (Radha-wound Skin Appearance) Assessed -Temperature (Radha-wound Skin No Abnormality Appearance) (Pt Warm) -Tenderness on Palpation (Radha-wound Yes Skin Appearance) -Ulcer Cleansing soapy water -Foul Odor after Cleansing No -Anesthetic Used 4% Lidocaine Solution WC - Nurse 2 - General Ulcer CM Notes Start: 04/03/20 08:08 Freq: Status: Active Protocol: Activity Type Activity Date Activity User E-Sign Co-Sign Detail Recorded Client Recorded Date Recorded By Document 04/03/20 08:44 LADAN [id number] 04/03/20 08:47 LADAN 04/03/20 08:44 Wound Center Nurse 2 [Procedure/Treatment] -Time 08:44 -Correct Patient Yes -Correct Side, Site, Position Yes -Correct Procedure Yes -Procedure Performed Yes -Type of Procedure Debridement -Clinical Debridement Muscle / Fascia -Tissue Removed Muscle -Post Debridement (cm) - Length 9 -Post Debridement (cm) - Width 9.8 -Post Debridement (cm) - Depth 0.9 -Total Square (Post) (cm) 88.2 -Area of Debridement (cm) - Length 9 -Area of Debridement (cm) - Width 9.8 -Total Square (Area) (cm) 88.2 -Tunneling No -Undermining/Tunneling No -Circular Undermining No -Wound/Ulcer Outcome Not Healed -Ulcer Cleansing Rinsed/ Irrigated with Saline -Foul Odor after Cleansing No -Bioengineered Tissue No -Bleeding Controlled with Pressure -Offloading No -Treatment Response Procedure Tolerated Well -Debridement - Subq, 1st 20sq cm No -Debridement - Muscle / Fascia, 1st Yes 20sq cm -Debridement, Muscle/Fascia, ea addt' 4 l 20sq cm or part thereof [See Physician Procedure note for Specifics] Pain Scale: 0-10 Numeric [Pain] -Is Patient Pain Free? Yes - Nurse 3 - General Ulcer D/C NN Start: 04/03/20 08:08 Freq: Status: Active Protocol: Activity Type Activity Date Activity User E-Sign Co-Sign Detail Recorded Client Recorded Date Recorded By Document 04/03/20 09:07 GRADY [id number] 04/03/20 09:09 GRADY 04/03/20 09:07 Wound Care Nurse 3 [Wound Dressing] #1 Left Lateral LE -Ulcer Cleansing Wound Cleanser -Foul Odor after Cleansing No -Negative Pressure Wound Therapy Continue -Setting (mmHg) 150 -Negative Pressure is Continuous -Other Dressing tomas -NPWT Application Charge ($) NPWT </= 50 sq cm [Post Procedure Tolerated] -Treatment Response Procedure Tolerated Well Pain Scale: 0-10 Numeric [Pain] -Is Patient Pain Free? Yes - Visit Discharge [Visit Discharge Information] -Discharge Condition Stable -Ambulatory Status Ambulatory -Transportation Private Auto -Notes: Dressing changed per Chevy Moore RN Musculoskeletal: No Tenderness to Palpation of Joints or Extremities Neurological: Cranial nerves II-XII grossly intact Psych/Mental Status: Normal Affect, Appropriate Debridement Note Post-Debridement Measurements/Treatment - Nurse 2 - General Ulcer CM Notes Start: 04/03/20 08:08 Freq: Status: Active Protocol: Activity Type Activity Date Activity User E-Sign Co-Sign Detail Recorded Client Recorded Date Recorded By Document 04/03/20 08:44 LADAN [id number] 04/03/20 08:47 LADAN 04/03/20 08:44 Wound Center Nurse 2 #1 Left Lateral LE -Time 08:44 -Correct Patient Yes -Correct Side, Site, Position Yes -Correct Procedure Yes -Procedure Performed Yes -Type of Procedure Debridement -Clinical Debridement Muscle / Fascia -Tissue Removed Muscle -Post Debridement (cm) - Length 9 -Post Debridement (cm) - Width 9.8 -Post Debridement (cm) - Depth 0.9 -Total Square (Post) (cm) 88.2 -Area of Debridement (cm) - Length 9 -Area of Debridement (cm) - Width 9.8 -Total Square (Area) (cm) 88.2 -Tunneling No -Undermining/Tunneling No -Circular Undermining No -Wound/Ulcer Outcome Not Healed -Ulcer Cleansing Rinsed/ Irrigated with Saline -Foul Odor after Cleansing No -Bioengineered Tissue No -Bleeding Controlled with Pressure -Offloading No -Treatment Response Procedure Tolerated Well -Debridement - Subq, 1st 20sq cm No -Debridement - Muscle / Fascia, 1st Yes 20sq cm -Debridement, Muscle/Fascia, ea addt'l 4 20sq cm or part thereof Pain Scale: 0-10 Numeric Is Patient Pain Free? Yes WC - Nurse 3 - General Ulcer D/C NN Start: 04/03/20 08:08 Freq: Status: Active Protocol: Activity Type Activity Date Activity User E-Sign Co-Sign Detail Recorded Client Recorded Date Recorded By Document 04/03/20 09:07 DL [id number] 04/03/20 09:09 DL 04/03/20 09:07 Wound Care Nurse 3 #1 Left Lateral LE -Ulcer Cleansing Wound Cleanser -Foul Odor after Cleansing No -Negative Pressure Wound Therapy Continue -Setting (mmHg) 150 -Negative Pressure is Continuous -Other Dressing tomas -NPWT Application Charge ($) NPWT </= 50 sq cm Treatment Response Procedure Tolerated Well Pain Scale: 0-10 Numeric Is Patient Pain Free? Yes WC - Visit Discharge Discharge Condition Stable Ambulatory Status Ambulatory Transportation Private Auto Notes: Dressing changed per Chevy Dick. 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 Laterality: Left Type of Debridement: Excisional debridement Anesthesia Used: 5% Lidocaine Gel Depth: Down to and including healthy tissue, in the subcutaneous layer, to muscle Percentage of wound debrided: 100 Instrument Used: 7mm curette Tissue Removed: Subcutaneous tissue and slough into the muscle Severity: Fat Layer Exposed Amount of bleeding with debridement: Mild Bleeding Controlled with: Pressure Patient tolerated procedure well Assessment/Plan Active Problems Former smoker (Chronic) Open wound of left lower leg with complication (Acute) Abscess of left lower leg (Acute) Type 2 diabetes mellitus (Chronic) Cellulitis of left lower leg (Acute) Assessment: 1. Opened wound left lower leg with complication. 2. Diabetes mellitus, Type 2, uncontrolled. 3. Former smoker. Plan: Patient was seen and evaluated in the wound center today and obtained a subcutaneous debridement which he tolerated well. Wound care - Wound VAC at 150 mmHg suction. He has home health to help with his wound VAC dressings. He has finished is Keflex for his operative culture that was positive for Staphylococcus aureus. 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 Renewed pain medication Percocet (21 tabs) and Valium (14 tabs). PDMP reviewed. Follow up 1 week. [id number]: [id number] Global Visit
--- NOTE | 2020-04-07 11:00 | WC ---
TC FROM ERICA @ [facility]. STATES PT REPORTED WHEN HE REMOVED HIS VAC DRSG TO SHOWER PRIOR TO VAC CHG, SMALL PIECES OF HIS TENDON WERE BREAKING OFF WITH THE FOAM. ASKS IF THEY CAN APPLY ADAPTIC PRIOR TO FOAM. CALLED AND SPOKE W/ ANDRIA GARCIA AND SHE GIVES OK TO APPLY ADAPTIC. NOTIFIED.
[2020-04-10 11:36] VITALS: BP 166/102; PULSE 72; RESP 20; TEMP 36.7; BMI 33.8
--- NOTE | 2020-04-10 12:21 | PN.PCM_ITS ---
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 History of Wound: Surgery 03/08/20 - Surgical preparation left lateral leg with incision and drainage and excisional debridement diabetic abscess (72 cm2). Wound care - VAC with a compression tomas wrap. Operative culture showed Staphylococcus aureus. He was discharged on Keflex and has finished them. Prealbumin on 03/10/20 was 9.1. Encouraged nutritional supplementation with protein to help the healing process. Today he denies fever. His appetite is good. Progress of Wound: Improved. - Physical Exam Vital Signs Temp Pulse Resp BP 98.1 F 72 20 H 166/102 H 04/10/20 11:36 04/10/20 11:36 04/10/20 11:36 04/10/20 11:36 Wound Measurements and Assessment WC - Nurse 1 - General Ulcer Measurement Start: 04/03/20 08:08 Freq: Status: Active Protocol: Activity Type Activity Date Activity User E-Sign Co-Sign Detail Recorded Client Recorded Date Recorded By Document 04/10/20 11:36 DL [id number] 04/10/20 11:46 DL 04/10/20 11:36 Wound Center Nurse 1 [Ulcer Assessment] #1 Left Lateral LE -Current Size (cm) - Length 9 -Current Size (cm) - Width 9.9 -Current Size (cm) - Depth 0.9 -Total Square Cm 89.1 -Photo Taken No -Exudate Amt Medium -Exudate Type Serosanguineous -Wound Margin Distinct, Outline Attached -Granulation Amt Large (67-100%) -Granulation Quality Red -Necrosis Amt Small (1-33%) -Necrotic Tissue Type Adherent Slough -Structure Exposed Tendon -Texture (Radha-wound Skin Appearance) Scarring -Moisture (Radha-wound Skin Appearance No Abnormality ) -Color (Radha-wound Skin Appearance) Erythema -Temperature (Radha-wound Skin No Abnormality Appearance) (Pt Warm) -Tenderness on Palpation (Radha-wound Yes Skin Appearance) -Ulcer Cleansing Wound Cleanser -Foul Odor after Cleansing Yes -Anesthetic Used 4% Lidocaine Solution WC - Nurse 2 - General Ulcer CM Notes Start: 04/03/20 08:08 Freq: Status: Active Protocol: Activity Type Activity Date Activity User E-Sign Co-Sign Detail Recorded Client Recorded Date Recorded By Document 04/10/20 12:10 [id number] 04/10/20 12:14 04/10/20 12:10 Wound Center Nurse 2 [Procedure/Treatment] -Time 12:11 -Correct Patient Yes -Correct Side, Site, Position Yes -Correct Procedure Yes -Procedure Performed Yes -Type of Procedure Debridement -Clinical Debridement Muscle / Fascia -Tissue Removed Muscle -Post Debridement (cm) - Length 8.8 -Post Debridement (cm) - Width 10 -Post Debridement (cm) - Depth 0.3 -Total Square (Post) (cm) 88.0 -Area of Debridement (cm) - Length 8.8 -Area of Debridement (cm) - Width 10 -Total Square (Area) (cm) 88.0 -Tunneling No -Undermining/Tunneling No -Circular Undermining No -Wound/Ulcer Outcome Not Healed -Ulcer Cleansing Rinsed/ Irrigated with Saline -Foul Odor after Cleansing No -Bioengineered Tissue No -Bleeding Controlled with Pressure -Offloading No -Treatment Response Procedure Tolerated Well -Debridement - Muscle / Fascia, 1st Yes 20sq cm -Debridement, Muscle/Fascia, ea addt' 4 l 20sq cm or part thereof [See Physician Procedure note for Specifics] Pain Scale: 0-10 Numeric [Pain] -Is Patient Pain Free? Yes Debridement Note Post-Debridement Measurements/Treatment WC - Nurse 2 - General Ulcer CM Notes Start: 04/03/20 08:08 Freq: Status: Active Protocol: Activity Type Activity Date Activity User E-Sign Co-Sign Detail Recorded Client Recorded Date Recorded By Document 04/03/20 08:44 [id number] 04/03/20 08:47 Document 04/10/20 12:10 [id number] 04/10/20 12:14 04/03/20 04/10/20 08:44 12:10 Wound Center Nurse 2 #1 Left Lateral LE -Time 08:44 12:11 -Correct Patient Yes Yes -Correct Side, Site, Position Yes Yes -Correct Procedure Yes Yes -Procedure Performed Yes Yes -Type of Procedure Debridement Debridement -Clinical Debridement Muscle / Fascia Muscle / Fascia -Tissue Removed Muscle Muscle -Post Debridement (cm) - Length 9 8.8 -Post Debridement (cm) - Width 9.8 10 -Post Debridement (cm) - Depth 0.9 0.3 -Total Square (Post) (cm) 88.2 88.0 -Area of Debridement (cm) - Length 9 8.8 -Area of Debridement (cm) - Width 9.8 10 -Total Square (Area) (cm) 88.2 88.0 -Tunneling No No -Undermining/Tunneling No No -Circular Undermining No No -Wound/Ulcer Outcome Not Healed Not Healed -Ulcer Cleansing Rinsed/ Rinsed/ Irrigated with Irrigated with Saline Saline -Foul Odor after Cleansing No No -Bioengineered Tissue No No -Bleeding Controlled with Pressure Pressure -Offloading No No -Treatment Response Procedure Procedure Tolerated Well Tolerated Well -Debridement - Subq, 1st 20sq cm No -Debridement - Muscle / Fascia, 1st Yes Yes 20sq cm -Debridement, Muscle/Fascia, ea addt'l 4 4 20sq cm or part thereof Pain Scale: 0-10 Numeric Is Patient Pain Free? Yes Yes - Nurse 3 - General Ulcer D/C NN Start: 04/03/20 08:08 Freq: Status: Active Protocol: Activity Type Activity Date Activity User E-Sign Co-Sign Detail Recorded Client Recorded Date Recorded By Document 04/03/20 09:07 DL [id number] 04/03/20 09:09 DL 04/03/20 09:07 Wound Care Nurse 3 #1 Left Lateral LE -Ulcer Cleansing Wound Cleanser -Foul Odor after Cleansing No -Negative Pressure Wound Therapy Continue -Setting (mmHg) 150 -Negative Pressure is Continuous -Other Dressing tomas -NPWT Application Charge ($) NPWT > 50 sq cm Treatment Response Procedure Tolerated Well Pain Scale: 0-10 Numeric Is Patient Pain Free? Yes - Visit Discharge Discharge Condition Stable Ambulatory Status Ambulatory Transportation Private Auto Notes: Dressing changed per Chevy Moore well treatment offsider debrided: #1 Left lateral leg. Laterality: Left Wound Grade/Stage: 3. Type of Debridement: Excisional debridement Anesthesia Used: 4% Lidocaine Solution Depth: Down to and including healthy tissue, in the subcutaneous layer, to muscle - there is exposed tendon. Percentage of wound debrided: 100 Instrument Used: 7mm curette Tissue Removed: subcutaneous tissue and muscle. Severity: Fat Layer Exposed - muscle is exposed. tendon is exposed. Amount of bleeding with debridement: Mild Bleeding Controlled with: Pressure Patient tolerated procedure well Assessment/Plan Active Problems Former smoker (Chronic) Open wound of left lower leg with complication (Acute) Type 2 diabetes mellitus (Chronic) Assessment: 1. 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 2. Diabetes mellitus. 3. History of Streptococcal infection. 4. Former smoker. Plan: Continue VAC followed by compression tomas wrap. His operative culture showed Staphylococcus aureus. He was discharged on Keflex and has finished them. His Prealbumin from 03/10/20 was 9.1. Encourage nutritional supplementation with protein to help the healing process. Renewed his Valium for spasm (14 tabs). PDMP reviewed. Discussed advanced skin substitute grafts to help the healing process. He is interested. Will obtain insurance approval. Also discussed further operative intervention with debridement and skin grafting using an autograft. He wants to try the advanced skin substitute grafts first. Follow up 1 week. [id number]: [id number] Global Visit - ICD-10 - Z48.89, L97.925, E11.622, L02.416, E11.9, Z86.19, Z87.891
[2020-04-17 08:02] VITALS: BP 171/92; PULSE 78; RESP 16; TEMP 36.3; BMI 33.8
--- NOTE | 2020-04-17 12:58 | PN.PCM_ITS ---
(1) Ulcer of left lower extremity with muscle involvement without evidence of necrosis Status: Chronic Code(s): L97.925 - Non-pressure chronic ulcer of unspecified part of left lower leg with muscle involvement without evidence of necrosis (2) Diabetic ulcer of lower leg Status: Chronic Code(s): E11.622 - Type 2 diabetes mellitus with other skin ulcer; L97.909 - Non-pressure chronic ulcer of unspecified part of unspecified lower leg with unspecified severity (3) Type 2 diabetes mellitus Status: Chronic Qualifiers: Code(s): E11.9 - Type 2 diabetes mellitus without complications (4) Former smoker Status: Chronic Code(s): Z87.891 - Personal history of nicotine dependence Type of Wound Date of Service: 04/17/20 Chief Complaint: 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 History of Wound: Surgery 03/08/20 - Surgical preparation left lateral leg with incision and drainage and excisional debridement diabetic abscess (72 cm2). Wound care - Wound VAC holiday due to strong odor. Will start daily Dakin's 1/4 strength moistened gauze. Wound culture obtained 04/17/20. Operative culture showed Staphylococcus aureus. He was discharged on Keflex and has finished them. Prealbumin on 03/10/20 was 9.1. Encouraged nutritional supplementation with protein to help the healing process. Today he denies fever. His appetite is good. Progress of Wound: Improved. - Physical Exam Vital Signs Temp Pulse Resp BP 97.3 F L 78 16 171/92 H 04/17/20 08:02 04/17/20 08:02 04/17/20 08:02 04/17/20 08:02 General: Alert, Oriented x3, Cooperative HEENT: Atraumatic Oral: Moist Mucosa Lungs: Normal air movement Cardiovascular: Regular rate Extremities: Capillary Refill Less than 3 Seconds, Edema Skin: Ulcer/ Wound - Left lateral leg ulcer is pink. There is a strong odor when the wound VAC was removed. Wound Measurements and Assessment WC - Nurse 1 - General Ulcer Measurement Start: 04/03/20 08:08 Freq: Status: Active Protocol: Activity Type Activity Date Activity User E-Sign Co-Sign Detail Recorded Client Recorded Date Recorded By Document 04/17/20 08:02 [facility] [id number] 04/17/20 08:15 BMF 04/17/20 08:02 Wound Center Nurse 1 [Ulcer Assessment] #1 Left Lateral LE -Combined with other wound No -Current Size (cm) - Length 1.1 -Current Size (cm) - Width 9.5 -Current Size (cm) - Depth 0.2 -Total Square Cm 10.45 -Photo Taken No -Epithelialization None Present -Tunneling No -Undermining/Tunneling No -Circular Undermining No -Exudate Amt Large -Exudate Type Sanguineous -Wound Margin Distinct, Outline Attached -Granulation Amt Large (67-100%) -Granulation Quality Red -Slough/Fibrin Yes -Necrosis Amt Small (1-33%) -Necrotic Tissue Type Adherent Slough -Structure Exposed Tendon -Texture (Radha-wound Skin Appearance) Assessed -Moisture (Radha-wound Skin Appearance Assessed ) -Color (Radha-wound Skin Appearance) Assessed, Erythema -Temperature (Radha-wound Skin No Abnormality Appearance) (Pt Warm) -Tenderness on Palpation (Radha-wound No Skin Appearance) -Ulcer Cleansing soapy water -Foul Odor after Cleansing No -Anesthetic Used 4% Lidocaine Solution WC - Nurse 2 - General Ulcer CM Notes Start: 04/03/20 08:08 Freq: Status: Active Protocol: Activity Type Activity Date Activity User E-Sign Co-Sign Detail Recorded Client Recorded Date Recorded By Document 04/17/20 08:38 LADAN [id number] 04/17/20 08:40 LADAN 04/17/20 08:38 Wound Center Nurse 2 [Procedure/Treatment] -Time 08:38 -Correct Patient Yes -Correct Side, Site, Position Yes -Correct Procedure Yes -Procedure Performed Yes -Type of Procedure Debridement -Clinical Debridement Subcutaneous -Tissue Removed Subcutaneous -Post Debridement (cm) - Length 9 -Post Debridement (cm) - Width 9.5 -Post Debridement (cm) - Depth 0.3 -Total Square (Post) (cm) 85.5 -Area of Debridement (cm) - Length 9 -Area of Debridement (cm) - Width 9.5 -Total Square (Area) (cm) 85.5 -Tunneling No -Undermining/Tunneling No -Circular Undermining No -Wound/Ulcer Outcome Not Healed -Ulcer Cleansing Rinsed/ Irrigated with Saline -Foul Odor after Cleansing No -Bioengineered Tissue No -Bleeding Controlled with Pressure -Offloading No -Treatment Response Procedure Tolerated Well -Debridement - Subq, 1st 20sq cm Yes -Debridement, SubQ, ea addt'l 20sq cm 4 or part thereof [See Physician Procedure note for Specifics] Pain Scale: 0-10 Numeric [Pain] -Is Patient Pain Free? Yes - Nurse 3 - General Ulcer D/C NN Start: 04/03/20 08:08 Freq: Status: Active Protocol: Activity Type Activity Date Activity User E-Sign Co-Sign Detail Recorded Client Recorded Date Recorded By Document 04/17/20 08:50 DL [id number] 04/17/20 08:52 DL 04/17/20 08:50 Wound Care Nurse 3 [Wound Dressing] #1 Left Lateral LE -Ulcer Cleansing Wound Cleanser -Foul Odor after Cleansing No -Other Dressing moist saline -Primary Dressing Covered/Secured Dry Gauze & with Roll Gauze, Secured with Tape -Other Covering [place] [Post Procedure Tolerated] -Treatment Response Procedure Tolerated Well Pain Scale: 0-10 Numeric [Pain] -Is Patient Pain Free? Yes - Visit Discharge [Visit Discharge Information] -Discharge Condition Stable -Ambulatory Status Ambulatory -Transportation Private Auto -Notes: Pt to start Dakins when available at home Musculoskeletal: No Tenderness to Palpation of Joints or Extremities Neurological: Cranial nerves II-XII grossly intact Psych/Mental Status: Normal Affect, Appropriate Debridement Note Post-Debridement Measurements/Treatment - Nurse 2 - General Ulcer CM Notes Start: 04/03/20 08:08 Freq: Status: Active Protocol: Activity Type Activity Date Activity User E-Sign Co-Sign Detail Recorded Client Recorded Date Recorded By Document 04/03/20 08:44 [id number] 04/03/20 08:47 Document 04/10/20 12:10 [id number] 04/10/20 12:14 Document 04/17/20 08:38 [id number] 04/17/20 08:40 04/03/20 04/10/20 04/17/20 08:44 12:10 08:38 Wound Center Nurse 2 #1 Left Lateral LE -Time 08:44 12:11 08:38 -Correct Patient Yes Yes Yes -Correct Side, Site, Position Yes Yes Yes -Correct Procedure Yes Yes Yes -Procedure Performed Yes Yes Yes -Type of Procedure Debridement Debridement Debridement -Clinical Debridement Muscle / Fascia Muscle / Fascia Subcutaneous -Tissue Removed Muscle Muscle Subcutaneous -Post Debridement (cm) - Length 9 8.8 9 -Post Debridement (cm) - Width 9.8 10 9.5 -Post Debridement (cm) - Depth 0.9 0.3 0.3 -Total Square (Post) (cm) 88.2 88.0 85.5 -Area of Debridement (cm) - Length 9 8.8 9 -Area of Debridement (cm) - Width 9.8 10 9.5 -Total Square (Area) (cm) 88.2 88.0 85.5 -Tunneling No No No -Undermining/Tunneling No No No -Circular Undermining No No No -Wound/Ulcer Outcome Not Healed Not Healed Not Healed -Ulcer Cleansing Rinsed/ Rinsed/ Rinsed/ Irrigated with Irrigated with Irrigated with Saline Saline Saline -Foul Odor after Cleansing No No No -Bioengineered Tissue No No No -Bleeding Controlled with Pressure Pressure Pressure -Offloading No No No -Treatment Response Procedure Procedure Procedure Tolerated Well Tolerated Well Tolerated Well -Debridement - Subq, 1st 20sq cm No Yes -Debridement, SubQ, ea addt'l 20sq cm 4 or part thereof -Debridement - Muscle / Fascia, 1st Yes Yes 20sq cm -Debridement, Muscle/Fascia, ea addt'l 4 4 20sq cm or part thereof Pain Scale: 0-10 Numeric Is Patient Pain Free? Yes Yes Yes WC - Nurse 3 - General Ulcer D/C NN Start: 04/03/20 08:08 Freq: Status: Active Protocol: Activity Type Activity Date Activity User E-Sign Co-Sign Detail Recorded Client Recorded Date Recorded By Document 04/03/20 09:07 DL [id number] 04/03/20 09:09 DL Document 04/10/20 12:22 DL [id number] 04/10/20 12:25 DL Document 04/17/20 08:50 DL [id number] 04/17/20 08:52 DL 04/03/20 04/10/20 04/17/20 09:07 12:22 08:50 Wound Care Nurse 3 #1 Left Lateral LE -Ulcer Cleansing Wound Cleanser Wound Cleanser Wound Cleanser -Foul Odor after Cleansing No No No -Negative Pressure Wound Therapy Continue Continue -Setting (mmHg) 150 150 -Negative Pressure is Continuous Continuous -Other Dressing [place] moist saline -Primary Dressing Covered/Secured with Dry Gauze & Roll Gauze, Secured with Tape -Other Covering Adaptic over [place] tendon -NPWT Application Charge ($) NPWT > 50 sq cm NPWT > 50 sq cm Radha-Wound Care Barrier Treatment Response Procedure Procedure Procedure Tolerated Well Tolerated Well Tolerated Well Pain Scale: 0-10 Numeric Is Patient Pain Free? Yes Yes Yes WC - Visit Discharge Discharge Condition Stable Stable Stable Ambulatory Status Ambulatory Ambulatory Ambulatory Transportation Private Auto Private Auto Private Auto Notes: Dressing Dressing Pt to start changed per B. applied per Chevy Dick. KIANNA available at today home Wound debrided: Lateral leg ulcer Laterality: Left Type of Debridement: Excisional debridement Anesthesia Used: 5% Lidocaine Gel Depth: Down to and including healthy tissue, in the subcutaneous layer Percentage of wound debrided: 100 Instrument Used: 7mm curette Tissue Removed: Subcutaneous tissue and slough Severity: Fat Layer Exposed Amount of bleeding with debridement: Mild Bleeding Controlled with: Pressure Patient tolerated procedure well Assessment/Plan Active Problems Former smoker (Chronic) Type 2 diabetes mellitus (Chronic) Assessment: 1. 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 2. Diabetes mellitus. 3. History of Streptococcal infection. 4. Former smoker. Plan: Will take a wound VAC holiday because of the strong odor. He will use Dakin's 1/4 strength solution daily. [place] wrap for compression. Wound culture obtained 04/17/20. Depending on the results of the culture, it may be necessary to treat with antibiotics. His operative culture showed Staphylococcus aureus. He was discharged on Keflex and has finished them. His Prealbumin from 03/10/20 was 9.1. Encourage nutritional supplementation with protein to help the healing process. Renewed Percocet (21 tabs). PDMP reviewed. Discussed advanced skin substitute grafts to help the healing process. He is interested. We are waiting on insurance approval for [employer]. Also discussed further operative intervention with debridement and skin grafting using an autograft. He wants to try the advanced skin substitute grafts first. Follow up 1 week. [id number]: [id number] Global Visit
[2020-04-24 08:07] VITALS: BP 165/107; PULSE 76; RESP 16; TEMP 35.8; BMI 33.8
--- NOTE | 2020-04-24 13:16 | PN.PCM_ITS ---
(1) Ulcer of left lower extremity with muscle involvement without evidence of necrosis Status: Chronic Code(s): L97.925 - Non-pressure chronic ulcer of unspecified part of left lower leg with muscle involvement without evidence of necrosis (2) Diabetic ulcer of lower leg Status: Chronic Code(s): E11.622 - Type 2 diabetes mellitus with other skin ulcer; L97.909 - Non-pressure chronic ulcer of unspecified part of unspecified lower leg with unspecified severity (3) Type 2 diabetes mellitus Status: Chronic Qualifiers: Code(s): E11.9 - Type 2 diabetes mellitus without complications (4) Former smoker Status: Chronic Code(s): Z87.891 - Personal history of nicotine dependence Type of Wound Date of Service: 04/24/20 Chief Complaint: Nonhealing diabetic abscess ulcer left lateral leg. History of Wound: Surgery 03/08/20 - Surgical preparation left lateral leg with incision and drainage and excisional debridement diabetic abscess (72 cm2). Wound care - Discontinue the wound VAC. Continue daily Dakin's 1/4 strength moistened gauze. Wound culture obtained 04/17/20 which was positive for Klebsiella oxytoca, Enterobacter cloacae complex, Streptococcus agalactiae (B), Enterococcus faecalis, Bacteroides fragilis group, Prevotella melaninogenica, and Anaerobic cocci. He was started on Levaquin, Augmentin and a probiotic. Operative culture showed Staphylococcus aureus. He was discharged on Keflex and has finished them. Prealbumin on 03/10/20 was 9.1. Encouraged nutritional supplementation with protein to help the healing process. Today he denies fever. His appetite is good. Progress of Wound: Improved. - Physical Exam Vital Signs Temp Pulse Resp BP 96.5 F L 76 16 165/107 H 04/24/20 08:07 04/24/20 08:07 04/24/20 08:07 04/24/20 08:07 General: Alert, Oriented x3, Cooperative HEENT: Atraumatic Oral: Moist Mucosa Lungs: Normal air movement Cardiovascular: Regular rate Extremities: Capillary Refill Less than 3 Seconds Skin: Ulcer/ Wound - Left leg ulcer is pink. No odor this week. Wound Measurements and Assessment WC - Nurse 1 - General Ulcer Measurement Start: 04/03/20 08:08 Freq: Status: Active Protocol: Activity Type Activity Date Activity User E-Sign Co-Sign Detail Recorded Client Recorded Date Recorded By Document 04/24/20 08:07 [facility] [id number] 04/24/20 08:13 [facility] 04/24/20 08:07 Wound Center Nurse 1 [Ulcer Assessment] #1 Left Lateral LE -Combined with other wound No -Current Size (cm) - Length 9.2 -Current Size (cm) - Width 9.1 -Current Size (cm) - Depth 0.3 -Total Square Cm 83.72 -Photo Taken No -Epithelialization None Present -Tunneling No -Undermining/Tunneling No -Circular Undermining No -Exudate Amt Large -Exudate Type Yellow/Green -Wound Margin Distinct, Outline Attached -Granulation Amt Large (67-100%) -Granulation Quality Red -Slough/Fibrin Yes -Necrosis Amt Small (1-33%) -Necrotic Tissue Type Adherent Slough -Structure Exposed Tendon -Texture (Radha-wound Skin Appearance) Assessed, Scarring -Moisture (Radha-wound Skin Appearance Assessed ) -Color (Radha-wound Skin Appearance) Assessed, Erythema -Temperature (Radha-wound Skin No Abnormality Appearance) (Pt Warm) -Tenderness on Palpation (Radha-wound Yes Skin Appearance) -Ulcer Cleansing Rinsed/ Irrigated with Saline -Foul Odor after Cleansing No -Anesthetic Used 4% Lidocaine Solution [Edema Assessment] -Left Calf (cm) 43.2 -Left Ankle (cm) 22.5 WC - Nurse 2 - General Ulcer CM Notes Start: 04/03/20 08:08 Freq: Status: Active Protocol: Activity Type Activity Date Activity User E-Sign Co-Sign Detail Recorded Client Recorded Date Recorded By Document 04/24/20 08:43 [id number] 04/24/20 08:47 04/24/20 08:43 Wound Center Nurse 2 [Procedure/Treatment] #1 Left Lateral LE -Time 08:45 -Correct Patient Yes -Correct Side, Site, Position Yes -Correct Procedure Yes -Procedure Performed Yes -Type of Procedure Debridement -Clinical Debridement Muscle / Fascia -Tissue Removed Muscle,Fascia -Post Debridement (cm) - Length 9 -Post Debridement (cm) - Width 9.5 -Post Debridement (cm) - Depth 0.3 -Total Square (Post) (cm) 85.5 -Area of Debridement (cm) - Length 9 -Area of Debridement (cm) - Width 9.5 -Total Square (Area) (cm) 85.5 -Tunneling No -Undermining/Tunneling No -Circular Undermining No -Wound/Ulcer Outcome Not Healed -Ulcer Cleansing Rinsed/ Irrigated with Saline -Foul Odor after Cleansing No -Bioengineered Tissue No -Bleeding Controlled with Pressure -Offloading No -Debridement - Muscle / Fascia, 1st Yes 20sq cm -Debridement, Muscle/Fascia, ea addt' 4 l 20sq cm or part thereof [See Physician Procedure note for Specifics] Pain Scale: 0-10 Numeric [Pain] -Is Patient Pain Free? Yes - Nurse 3 - General Ulcer D/C NN Start: 04/03/20 08:08 Freq: Status: Active Protocol: Activity Type Activity Date Activity User E-Sign Co-Sign Detail Recorded Client Recorded Date Recorded By Document 04/24/20 09:00 [facility] [id number] 04/24/20 09:01 [facility] 04/24/20 09:00 Wound Care Nurse 3 [Wound Dressing] #1 Left Lateral LE -Ulcer Cleansing Rinsed/ Irrigated with Saline -Foul Odor after Cleansing No -Primary Dressing Applied Other -Other Dressing MOIST TO DRY PER D [employer]UN [employer] SUPERVISOR -Primary Dressing Covered/Secured Dry Gauze & with Roll Gauze, Secured with Tape [Compression Applied] Left -Compression Wrap Doyle Wrap [Post Procedure Tolerated] -Treatment Response Procedure Tolerated Well Pain Scale: 0-10 Numeric [Pain] -Is Patient Pain Free? Yes - Visit Discharge [Visit Discharge Information] -Discharge Condition Stable -Ambulatory Status Ambulatory -Transportation Private Auto Musculoskeletal: No Tenderness to Palpation of Joints or Extremities Neurological: Cranial nerves II-XII grossly intact Psych/Mental Status: Normal Affect, Appropriate Debridement Note Post-Debridement Measurements/Treatment - Nurse 2 - General Ulcer CM Notes Start: 04/03/20 08:08 Freq: Status: Active Protocol: Activity Type Activity Date Activity User E-Sign Co-Sign Detail Recorded Client Recorded Date Recorded By Document 04/03/20 08:44 [id number] 04/03/20 08:47 Document 04/10/20 12:10 LADAN [id number] 04/10/20 12:14 Document 04/17/20 08:38 [id number] 04/17/20 08:40 Document 04/24/20 08:43 LADAN [id number] 04/24/20 08:47 JF 04/03/20 04/10/20 04/17/20 08:44 12:10 08:38 Wound Center Nurse 2 #1 Left Lateral LE -Time 08:44 12:11 08:38 -Correct Patient Yes Yes Yes -Correct Side, Site, Position Yes Yes Yes -Correct Procedure Yes Yes Yes -Procedure Performed Yes Yes Yes -Type of Procedure Debridement Debridement Debridement -Clinical Debridement Muscle / Fascia Muscle / Fascia Subcutaneous -Tissue Removed Muscle Muscle Subcutaneous -Post Debridement (cm) - Length 9 8.8 9 -Post Debridement (cm) - Width 9.8 10 9.5 -Post Debridement (cm) - Depth 0.9 0.3 0.3 -Total Square (Post) (cm) 88.2 88.0 85.5 -Area of Debridement (cm) - Length 9 8.8 9 -Area of Debridement (cm) - Width 9.8 10 9.5 -Total Square (Area) (cm) 88.2 88.0 85.5 -Tunneling No No No -Undermining/Tunneling No No No -Circular Undermining No No No -Wound/Ulcer Outcome Not Healed Not Healed Not Healed -Ulcer Cleansing Rinsed/ Rinsed/ Rinsed/ Irrigated with Irrigated with Irrigated with Saline Saline Saline -Foul Odor after Cleansing No No No -Bioengineered Tissue No No No -Bleeding Controlled with Pressure Pressure Pressure -Offloading No No No -Treatment Response Procedure Procedure Procedure Tolerated Well Tolerated Well Tolerated Well -Debridement - Subq, 1st 20sq cm No Yes -Debridement, SubQ, ea addt'l 20sq cm 4 or part thereof -Debridement - Muscle / Fascia, 1st Yes Yes 20sq cm -Debridement, Muscle/Fascia, ea addt'l 4 4 20sq cm or part thereof Pain Scale: 0-10 Numeric Is Patient Pain Free? Yes Yes Yes 04/24/20 08:43 Wound Center Nurse 2 #1 Left Lateral LE -Time 08:45 -Correct Patient Yes -Correct Side, Site, Position Yes -Correct Procedure Yes -Procedure Performed Yes -Type of Procedure Debridement -Clinical Debridement Muscle / Fascia -Tissue Removed Muscle,Fascia -Post Debridement (cm) - Length 9 -Post Debridement (cm) - Width 9.5 -Post Debridement (cm) - Depth 0.3 -Total Square (Post) (cm) 85.5 -Area of Debridement (cm) - Length 9 -Area of Debridement (cm) - Width 9.5 -Total Square (Area) (cm) 85.5 -Tunneling No -Undermining/Tunneling No -Circular Undermining No -Wound/Ulcer Outcome Not Healed -Ulcer Cleansing Rinsed/ Irrigated with Saline -Foul Odor after Cleansing No -Bioengineered Tissue No -Bleeding Controlled with Pressure -Offloading No -Treatment Response -Debridement - Subq, 1st 20sq cm -Debridement, SubQ, ea addt'l 20sq cm or part thereof -Debridement - Muscle / Fascia, 1st Yes 20sq cm -Debridement, Muscle/Fascia, ea addt'l 4 20sq cm or part thereof Pain Scale: 0-10 Numeric Is Patient Pain Free? Yes - Nurse 3 - General Ulcer D/C NN Start: 04/03/20 08:08 Freq: Status: Active Protocol: Activity Type Activity Date Activity User E-Sign Co-Sign Detail Recorded Client Recorded Date Recorded By Document 04/03/20 09:07 DL [id number] 04/03/20 09:09 DL Document 04/10/20 12:22 DL [id number] 04/10/20 12:25 DL Document 04/17/20 08:50 DL [id number] 04/17/20 08:52 DL Document 04/24/20 09:00 BM [id number] 04/24/20 09:01 BMF 04/03/20 04/10/20 04/17/20 09:07 12:22 08:50 Wound Care Nurse 3 #1 Left Lateral LE -Ulcer Cleansing Wound Cleanser Wound Cleanser Wound Cleanser -Foul Odor after Cleansing No No No -Negative Pressure Wound Therapy Continue Continue -Setting (mmHg) 150 150 -Negative Pressure is Continuous Continuous -Primary Dressing Applied -Other Dressing doyle doyle moist saline -Primary Dressing Covered/Secured with Dry Gauze & Roll Gauze, Secured with Tape -Other Covering Adaptic over doyle tendon -NPWT Application Charge ($) NPWT > 50 sq cm NPWT > 50 sq cm Radha-Wound Care Barrier Left -Compression Wrap Treatment Response Procedure Procedure Procedure Tolerated Well Tolerated Well Tolerated Well Pain Scale: 0-10 Numeric Is Patient Pain Free? Yes Yes Yes WC - Visit Discharge Discharge Condition Stable Stable Stable Ambulatory Status Ambulatory Ambulatory Ambulatory Transportation Private Auto Private Auto Private Auto Notes: Dressing Dressing Pt to start changed per B. applied per Chevy Moore RN available at today home 04/24/20 09:00 Wound Care Nurse 3 #1 Left Lateral LE -Ulcer Cleansing Rinsed/ Irrigated with Saline -Foul Odor after Cleansing No -Negative Pressure Wound Therapy -Setting (mmHg) -Negative Pressure is -Primary Dressing Applied Other -Other Dressing MOIST TO DRY PER D [employer]UN [employer] SUPERVISOR -Primary Dressing Covered/Secured with Dry Gauze & Roll Gauze, Secured with Tape -Other Covering -NPWT Application Charge ($) Radha-Wound Care Left -Compression Wrap Doyle Wrap Treatment Response Procedure Tolerated Well Pain Scale: 0-10 Numeric Is Patient Pain Free? Yes WC - Visit Discharge Discharge Condition Stable Ambulatory Status Ambulatory Transportation Private Auto Notes: Wound debrided: Leg ulcer Laterality: Left Type of Debridement: Excisional debridement Anesthesia Used: 5% Lidocaine Gel Depth: Down to and including healthy tissue, in the subcutaneous layer, to muscle Percentage of wound debrided: 100 Instrument Used: 7mm curette Tissue Removed: Subcutaneous tissue and slough into the muscle Severity: Fat Layer Exposed Amount of bleeding with debridement: Mild Bleeding Controlled with: Pressure Patient tolerated procedure well Assessment/Plan Active Problems Diabetic ulcer of lower leg (Chronic) Ulcer of left lower extremity with muscle involvement without evidence of necrosis (Chronic) Former smoker (Chronic) Type 2 diabetes mellitus (Chronic) Assessment: 1. 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 2. Diabetes mellitus. 3. History of Streptococcal infection. 4. Former smoker. Plan: Wound care - Discontinue the wound VAC. Suspect that the vac was not working properly due to the large varietly of bacteria growth from wound culture. Continue daily Dakin's 1/4 strength moistened gauze. Will decrease home health to once per week visits. Wound culture obtained 04/17/20 which was positive for Klebsiella oxytoca, Enterobacter cloacae complex, Streptococcus agalactiae (B), Enterococcus faecalis, Bacteroides fragilis group, Prevotella melaninogenica, and Anaerobic cocci. He was started on Levaquin, Augmentin and a probiotic. His operative culture showed Staphylococcus aureus. He was discharged on Keflex and has finished them. His Prealbumin from 03/10/20 was 9.1. Encourage nutritional supplementation with protein to help the healing process. Renewed Percocet (14 tabs). PDMP reviewed. Discussed advanced skin substitute grafts to help the healing process. He is interested. We are waiting on insurance approval for Theraskin. Also discussed further operative intervention with debridement and skin grafting using an autograft. He wants to try the advanced skin substitute grafts first. Follow up 1 week. [id number]: [id number] Global Visit
== END 2020-04-27 23:59 ==
LOC: WC 08:00
PROVIDERS: PCP Family Medicine; Referring Provider Surgery; Visit Provider Nurse Practitioner Family
DX: T81.49XA Infection following a procedure, other surgical site, initial encounter (principal); Y83.8 Other surgical procedures as the cause of abnormal reaction of the patient, or of later complication, without mention of misadventure at the time of the procedure; E11.9 Type 2 diabetes mellitus without complications; Z87.891 Personal history of nicotine dependence; L02.416 Cutaneous abscess of left lower limb; L03.116 Cellulitis of left lower limb
CPT/HCPCS: 11042; 11043; 11045; 11046; 87070; 87075; 87077; 87186; 87205; 97605; 97606

== ENCOUNTER 2020-05-22 10:30 | Outpatient (RCR) | payer BC, MEDICAID, SELFPAY ==
[2020-04-28 00:36] VITALS: BP 165/107; PULSE 76; RESP 16; TEMP 35.8
[2020-05-01 08:04] VITALS: BP 166/95; PULSE 78; RESP 16; TEMP 35.9; BMI 33.8
--- NOTE | 2020-05-01 11:42 | PCM.WC.PN ---
(1) Ulcer of left lower extremity with muscle involvement without evidence of necrosis Status: Chronic Code(s): L97.925 - Non-pressure chronic ulcer of unspecified part of left lower leg with muscle involvement without evidence of necrosis (2) Diabetic ulcer of lower leg Status: Chronic Code(s): E11.622 - Type 2 diabetes mellitus with other skin ulcer; L97.909 - Non-pressure chronic ulcer of unspecified part of unspecified lower leg with unspecified severity (3) Former smoker Status: Chronic Code(s): Z87.891 - Personal history of nicotine dependence (4) Type 2 diabetes mellitus Status: Chronic Qualifiers: Code(s): E11.9 - Type 2 diabetes mellitus without complications (5) Abscess of left lower leg Status: Acute Code(s): L02.416 - Cutaneous abscess of left lower limb Type of Wound Date of Service: 05/01/20 Chief Complaint: Nonhealing diabetic abscess ulcer left lateral leg. History of Wound: Surgery 03/08/20 - Surgical preparation left lateral leg with incision and drainage and excisional debridement diabetic abscess (72 cm2). Wound care - Daily Dakin's 1/4 strength moistened gauze. Wound culture obtained 04/17/20 which was positive for Klebsiella oxytoca, Enterobacter cloacae complex, Streptococcus agalactiae (B), Enterococcus faecalis, Bacteroides fragilis group, Prevotella melaninogenica, and Anaerobic cocci. He was started on Levaquin, Augmentin and a probiotic. Operative culture showed Staphylococcus aureus. He was discharged on Keflex and has finished them. Prealbumin on 03/10/20 was 9.1. Encouraged nutritional supplementation with protein to help the healing process. Today he denies fever. His appetite is good. Progress of Wound: Improved. - Physical Exam Vital Signs Temp Pulse Resp BP 96.6 F L 78 16 166/95 H 05/01/20 08:04 05/01/20 08:04 05/01/20 08:04 05/01/20 08:04 General: Alert, Oriented x3, Cooperative HEENT: Atraumatic Oral: Moist Mucosa Lungs: Normal air movement Cardiovascular: Regular rate Extremities: Capillary Refill Less than 3 Seconds Skin: Ulcer/ Wound - Left lateral leg ulcer is beefy pink. There is a mild pink rim surrounding the ulcer. Wound Measurements and Assessment WC - Nurse 1 - General Ulcer Measurement Start: 05/01/20 08:03 Freq: Status: Active Protocol: Activity Type Activity Date Activity User E-Sign Co-Sign Detail Recorded Client Recorded Date Recorded By Document 05/01/20 08:04 KR [id number] 05/01/20 08:11 KR 05/01/20 08:04 Wound Center Nurse 1 [Ulcer Assessment] #1 Left Lateral LE -Combined with other wound No -Current Size (cm) - Length 8.9 -Current Size (cm) - Width 8.4 -Current Size (cm) - Depth 0.3 -Total Square Cm 74.76 -Photo Taken No -Epithelialization None Present -Tunneling No -Undermining/Tunneling No -Circular Undermining No -Exudate Amt Large -Exudate Type Serosanguineous -Wound Margin Distinct, Outline Attached -Granulation Amt Large (67-100%) -Granulation Quality Red -Slough/Fibrin Yes -Necrosis Amt Small (1-33%) -Necrotic Tissue Type Adherent Slough -Structure Exposed Tendon -Texture (Radha-wound Skin Appearance) Scarring -Moisture (Radha-wound Skin Appearance Assessed ) -Color (Radha-wound Skin Appearance) Assessed -Temperature (Radha-wound Skin No Abnormality Appearance) (Pt Warm) -Tenderness on Palpation (Radha-wound Yes Skin Appearance) -Ulcer Cleansing Rinsed/ Irrigated with Saline -Foul Odor after Cleansing No -Anesthetic Used 4% Lidocaine Solution [Edema Assessment] -Left Calf (cm) 41.5 -Left Ankle (cm) 25 WC - Nurse 2 - General Ulcer CM Notes Start: 05/01/20 08:03 Freq: Status: Active Protocol: Activity Type Activity Date Activity User E-Sign Co-Sign Detail Recorded Client Recorded Date Recorded By Document 05/01/20 08:38 PL [id number] 05/01/20 08:43 PL 05/01/20 08:38 Wound Center Nurse 2 [Procedure/Treatment] #1 Left Lateral LE -Time 08:40 -Correct Patient Yes -Correct Side, Site, Position Yes -Correct Procedure Yes -Procedure Performed Yes -Type of Procedure Debridement -Clinical Debridement Subcutaneous -Tissue Removed Subcutaneous, Muscle -Post Debridement (cm) - Length 8.5 -Post Debridement (cm) - Width 9.3 -Post Debridement (cm) - Depth 0.3 -Total Square (Post) (cm) 79.05 -Area of Debridement (cm) - Length 8.5 -Area of Debridement (cm) - Width 9.3 -Total Square (Area) (cm) 79.05 -Tunneling No -Undermining/Tunneling No -Circular Undermining No -Wound/Ulcer Outcome Not Healed -Ulcer Cleansing Rinsed/ Irrigated with Saline -Foul Odor after Cleansing No -Bioengineered Tissue No -Debridement - Subq, 1st 20sq cm Yes -Debridement, SubQ, ea addt'l 20sq cm 3 or part thereof [See Physician Procedure note for Specifics] Pain Scale: 0-10 Numeric [Pain] -Is Patient Pain Free? Yes WC - Nurse 3 - General Ulcer D/C NN Start: 05/01/20 08:03 Freq: Status: Active Protocol: Activity Type Activity Date Activity User E-Sign Co-Sign Detail Recorded Client Recorded Date Recorded By Document 05/01/20 08:54 [place] [id number] 05/01/20 08:55 MT 05/01/20 08:54 Wound Care Nurse 3 [Wound Dressing] #1 Left Lateral LE -Other Dressing wet to dry -Primary Dressing Covered/Secured Dry Gauze, with Secured with Tape [Compression Applied] Left -Compression Wrap Doyle Wrap WC - Visit Discharge [Visit Discharge Information] -Discharge Condition Stable -Ambulatory Status Ambulatory -Transportation Private Auto -Medication Reconcilliation completed No & provided to patient/care provider -Clinical Summary of Care Provided Yes Musculoskeletal: No Tenderness to Palpation of Joints or Extremities Neurological: Cranial nerves II-XII grossly intact Psych/Mental Status: Normal Affect, Appropriate Debridement Note Post-Debridement Measurements/Treatment WC - Nurse 2 - General Ulcer CM Notes Start: 05/01/20 08:03 Freq: Status: Active Protocol: Activity Type Activity Date Activity User E-Sign Co-Sign Detail Recorded Client Recorded Date Recorded By Document 05/01/20 08:38 PL [id number] 05/01/20 08:43 PL 05/01/20 08:38 Wound Center Nurse 2 #1 Left Lateral LE -Time 08:40 -Correct Patient Yes -Correct Side, Site, Position Yes -Correct Procedure Yes -Procedure Performed Yes -Type of Procedure Debridement -Clinical Debridement Subcutaneous -Tissue Removed Subcutaneous, Muscle -Post Debridement (cm) - Length 8.5 -Post Debridement (cm) - Width 9.3 -Post Debridement (cm) - Depth 0.3 -Total Square (Post) (cm) 79.05 -Area of Debridement (cm) - Length 8.5 -Area of Debridement (cm) - Width 9.3 -Total Square (Area) (cm) 79.05 -Tunneling No -Undermining/Tunneling No -Circular Undermining No -Wound/Ulcer Outcome Not Healed -Ulcer Cleansing Rinsed/ Irrigated with Saline -Foul Odor after Cleansing No -Bioengineered Tissue No -Debridement - Subq, 1st 20sq cm Yes -Debridement, SubQ, ea addt'l 20sq cm 3 or part thereof Pain Scale: 0-10 Numeric Is Patient Pain Free? Yes WC - Nurse 3 - General Ulcer D/C NN Start: 05/01/20 08:03 Freq: Status: Active Protocol: Activity Type Activity Date Activity User E-Sign Co-Sign Detail Recorded Client Recorded Date Recorded By Document 05/01/20 08:54 NJ [id number] 05/01/20 08:55 [place] 05/01/20 08:54 Wound Care Nurse 3 #1 Left Lateral LE -Other Dressing wet to dry -Primary Dressing Covered/Secured with Dry Gauze, Secured with Tape Left -Compression Wrap Doyle Wrap WC - Visit Discharge Discharge Condition Stable Ambulatory Status Ambulatory Transportation Private Auto Medication Reconcilliation completed & No provided to patient/care provider Clinical Summary of Care Provided Yes Wound debrided: Lateral leg ulcer Laterality: Left Type of Debridement: Excisional debridement Anesthesia Used: 5% Lidocaine Gel Depth: Down to and including healthy tissue, in the subcutaneous layer, to muscle Percentage of wound debrided: 100 Instrument Used: 7mm curette Tissue Removed: Subcutaneous tissue and slough Severity: Fat Layer Exposed Amount of bleeding with debridement: Mild Bleeding Controlled with: Pressure, Compression and gauze Patient tolerated procedure well Assessment/Plan Active Problems Diabetic ulcer of lower leg (Chronic) Ulcer of left lower extremity with muscle involvement without evidence of necrosis (Chronic) Former smoker (Chronic) Abscess of left lower leg (Acute) Type 2 diabetes mellitus (Chronic) Assessment: 1. 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 2. Diabetes mellitus. 3. History of Streptococcal infection. 4. Former smoker. Plan: Wound care - Continue daily Dakin's 1/4 strength moistened gauze. Make sure to keep moistened gauze only on the ulcer and not on the surrounding skin. DOYLE wrap compression. Home health decreased to once per week visits. Wound culture obtained 04/17/20 which was positive for Klebsiella oxytoca, Enterobacter cloacae complex, Streptococcus agalactiae (B), Enterococcus faecalis, Bacteroides fragilis group, Prevotella melaninogenica, and Anaerobic cocci. He was started on Levaquin, Augmentin and a probiotic. His insurance will allow only 14 days of Levaquin. His operative culture showed Staphylococcus aureus. He was discharged on Keflex and has finished them. His Prealbumin from 03/10/20 was 9.1. Encourage nutritional supplementation with protein to help the healing process. Discussed advanced skin substitute grafts to help the healing process. He is interested. We are waiting on insurance approval for Theraskin. Also discussed further operative intervention with debridement and skin grafting using an autograft. He wants to try the advanced skin substitute grafts first. Follow up 1 week. [id number]: [id number] Global Visit
[2020-05-08 08:09] VITALS: BP 162/88; PULSE 75; RESP 16; TEMP 36.1; BMI 33.8
--- NOTE | 2020-05-08 13:15 | PCM.WC.PN ---
(1) Ulcer of left lower extremity with muscle involvement without evidence of necrosis Status: Chronic Code(s): L97.925 - Non-pressure chronic ulcer of unspecified part of left lower leg with muscle involvement without evidence of necrosis (2) Diabetic ulcer of lower leg Status: Chronic Code(s): E11.622 - Type 2 diabetes mellitus with other skin ulcer; L97.909 - Non-pressure chronic ulcer of unspecified part of unspecified lower leg with unspecified severity (3) Former smoker Status: Chronic Code(s): Z87.891 - Personal history of nicotine dependence (4) Type 2 diabetes mellitus Status: Chronic Qualifiers: Code(s): E11.9 - Type 2 diabetes mellitus without complications (5) Abscess of left lower leg Status: Acute Code(s): L02.416 - Cutaneous abscess of left lower limb Type of Wound Date of Service: 05/08/20 Chief Complaint: Nonhealing diabetic abscess ulcer left lateral leg. History of Wound: Surgery 03/08/20 - Surgical preparation left lateral leg with incision and drainage and excisional debridement diabetic abscess (72 cm2). Wound care - Daily Dakin's 1/4 strength moistened gauze. Wound culture obtained 04/17/20 which was positive for Klebsiella oxytoca, Enterobacter cloacae complex, Streptococcus agalactiae (B), Enterococcus faecalis, Bacteroides fragilis group, Prevotella melaninogenica, and Anaerobic cocci. He was started on Levaquin, Augmentin and a probiotic. Operative culture showed Staphylococcus aureus. He was discharged on Keflex and has finished them. Prealbumin on 03/10/20 was 9.1. Encouraged nutritional supplementation with protein to help the healing process. Today he denies fever. His appetite is good. Progress of Wound: Improved. - Physical Exam Vital Signs Temp Pulse Resp BP 96.9 F L 75 16 162/88 H 05/08/20 08:09 05/08/20 08:09 05/08/20 08:09 05/08/20 08:09 General: Alert, Oriented x3, Cooperative HEENT: Atraumatic Oral: Moist Mucosa Lungs: Normal air movement Cardiovascular: Regular rate Extremities: Capillary Refill Less than 3 Seconds, Edema Skin: Ulcer/ Wound - Left lateral leg ulcer beefy pink. Wound Measurements and Assessment WC - Nurse 1 - General Ulcer Measurement Start: 05/01/20 08:03 Freq: Status: Active Protocol: Activity Type Activity Date Activity User E-Sign Co-Sign Detail Recorded Client Recorded Date Recorded By Document 05/08/20 08:09 [facility] [id number] 05/08/20 08:16 [facility] 05/08/20 08:09 Wound Center Nurse 1 [Ulcer Assessment] #1 Left Lateral LE -Combined with other wound No -Current Size (cm) - Length 8 -Current Size (cm) - Width 8.8 -Current Size (cm) - Depth 0.3 -Total Square Cm 70.4 -Photo Taken No -Epithelialization Small 1-33% -Tunneling No -Undermining/Tunneling No -Circular Undermining No -Exudate Amt Large -Exudate Type Serosanguineous -Wound Margin Distinct, Outline Attached -Granulation Amt Large (67-100%) -Granulation Quality Red -Slough/Fibrin Yes -Necrosis Amt Small (1-33%) -Necrotic Tissue Type Adherent Slough -Structure Exposed Tendon -Texture (Radha-wound Skin Appearance) Assessed, Scarring -Moisture (Radha-wound Skin Appearance Assessed ) -Color (Radha-wound Skin Appearance) Assessed -Temperature (Radha-wound Skin No Abnormality Appearance) (Pt Warm) -Tenderness on Palpation (Radha-wound No Skin Appearance) -Ulcer Cleansing Rinsed/ Irrigated with Saline -Foul Odor after Cleansing No -Anesthetic Used 4% Lidocaine Solution [Edema Assessment] -Lower Limb Edema Present Yes -Left Calf (cm) 41.2 -Left Ankle (cm) 22.5 WC - Nurse 2 - General Ulcer CM Notes Start: 05/01/20 08:03 Freq: Status: Active Protocol: Activity Type Activity Date Activity User E-Sign Co-Sign Detail Recorded Client Recorded Date Recorded By Document 05/08/20 08:44 [id number] 05/08/20 08:45 05/08/20 08:44 Wound Center Nurse 2 [Procedure/Treatment] #1 Left Lateral LE -Correct Patient Yes -Correct Side, Site, Position Yes -Correct Procedure Yes -Procedure Performed Yes -Type of Procedure Debridement -Clinical Debridement Muscle / Fascia -Tissue Removed Muscle,Fascia -Post Debridement (cm) - Length 8.1 -Post Debridement (cm) - Width 8.7 -Post Debridement (cm) - Depth 0.2 -Total Square (Post) (cm) 70.47 -Area of Debridement (cm) - Length 8.1 -Area of Debridement (cm) - Width 8.7 -Total Square (Area) (cm) 70.47 -Tunneling No -Undermining/Tunneling No -Circular Undermining No -Wound/Ulcer Outcome Not Healed -Ulcer Cleansing Rinsed/ Irrigated with Saline -Foul Odor after Cleansing No -Bioengineered Tissue No -Bleeding Controlled with NA,Pressure -Offloading No -Treatment Response Procedure Tolerated Well -Debridement - Muscle / Fascia, 1st Yes 20sq cm -Debridement, Muscle/Fascia, ea addt' 3 l 20sq cm or part thereof [See Physician Procedure note for Specifics] Pain Scale: 0-10 Numeric [Pain] -Is Patient Pain Free? Yes - Nurse 3 - General Ulcer D/C NN Start: 05/01/20 08:03 Freq: Status: Active Protocol: Activity Type Activity Date Activity User E-Sign Co-Sign Detail Recorded Client Recorded Date Recorded By Document 05/08/20 08:47 [facility] [id number] 05/08/20 08:48 [facility] 05/08/20 08:47 Wound Care Nurse 3 [Wound Dressing] #1 Left Lateral LE -Ulcer Cleansing Rinsed/ Irrigated with Saline -Foul Odor after Cleansing No -Primary Dressing Applied Other -Other Dressing MOIST TO DRY -Primary Dressing Covered/Secured Dry Gauze & with Roll Gauze, Secured with Tape [Compression Applied] Left -Compression Wrap Doyle Wrap [Post Procedure Tolerated] -Treatment Response Procedure Tolerated Well Pain Scale: 0-10 Numeric [Pain] -Is Patient Pain Free? Yes - Visit Discharge [Visit Discharge Information] -Discharge Condition Stable -Ambulatory Status Ambulatory -Transportation Private Auto [Facility Notification] -Facility Type Home Health Musculoskeletal: No Tenderness to Palpation of Joints or Extremities Neurological: Cranial nerves II-XII grossly intact Psych/Mental Status: Normal Affect, Appropriate Debridement Note Post-Debridement Measurements/Treatment - Nurse 2 - General Ulcer CM Notes Start: 05/01/20 08:03 Freq: Status: Active Protocol: Activity Type Activity Date Activity User E-Sign Co-Sign Detail Recorded Client Recorded Date Recorded By Document 05/01/20 08:38 PL [id number] 05/01/20 08:43 PL Document 05/08/20 08:44 [id number] 05/08/20 08:45 JF 05/01/20 05/08/20 08:38 08:44 Wound Center Nurse 2 #1 Left Lateral LE -Time 08:40 -Correct Patient Yes Yes -Correct Side, Site, Position Yes Yes -Correct Procedure Yes Yes -Procedure Performed Yes Yes -Type of Procedure Debridement Debridement -Clinical Debridement Subcutaneous Muscle / Fascia -Tissue Removed Subcutaneous, Muscle,Fascia Muscle -Post Debridement (cm) - Length 8.5 8.1 -Post Debridement (cm) - Width 9.3 8.7 -Post Debridement (cm) - Depth 0.3 0.2 -Total Square (Post) (cm) 79.05 70.47 -Area of Debridement (cm) - Length 8.5 8.1 -Area of Debridement (cm) - Width 9.3 8.7 -Total Square (Area) (cm) 79.05 70.47 -Tunneling No No -Undermining/Tunneling No No -Circular Undermining No No -Wound/Ulcer Outcome Not Healed Not Healed -Ulcer Cleansing Rinsed/ Rinsed/ Irrigated with Irrigated with Saline Saline -Foul Odor after Cleansing No No -Bioengineered Tissue No No -Bleeding Controlled with NA,Pressure -Offloading No -Treatment Response Procedure Tolerated Well -Debridement - Subq, 1st 20sq cm Yes -Debridement, SubQ, ea addt'l 20sq cm 3 or part thereof -Debridement - Muscle / Fascia, 1st Yes 20sq cm -Debridement, Muscle/Fascia, ea addt'l 3 20sq cm or part thereof Pain Scale: 0-10 Numeric Is Patient Pain Free? Yes Yes WC - Nurse 3 - General Ulcer D/C NN Start: 05/01/20 08:03 Freq: Status: Active Protocol: Activity Type Activity Date Activity User E-Sign Co-Sign Detail Recorded Client Recorded Date Recorded By Document 05/01/20 08:54 UT [id number] 05/01/20 08:55 UT Document 05/08/20 08:47 [facility] [id number] 05/08/20 08:48 [facility] 05/01/20 05/08/20 08:54 08:47 Wound Care Nurse 3 #1 Left Lateral LE -Ulcer Cleansing Rinsed/ Irrigated with Saline -Foul Odor after Cleansing No -Primary Dressing Applied Other -Other Dressing wet to dry MOIST TO DRY -Primary Dressing Covered/Secured with Dry Gauze, Dry Gauze & Secured with Roll Gauze, Tape Secured with Tape Left -Compression Wrap Doyle Wrap Doyle Wrap Treatment Response Procedure Tolerated Well Pain Scale: 0-10 Numeric Is Patient Pain Free? Yes WC - Visit Discharge Discharge Condition Stable Stable Ambulatory Status Ambulatory Ambulatory Transportation Private Auto Private Auto Medication Reconcilliation completed & No provided to patient/care provider Clinical Summary of Care Provided Yes Facility Type Home Health Wound debrided: Lateral leg ulcer Laterality: Left Type of Debridement: Excisional debridement Anesthesia Used: 5% Lidocaine Gel Depth: Down to and including healthy tissue, in the subcutaneous layer, to muscle Percentage of wound debrided: 100 Instrument Used: 7mm curette Tissue Removed: Subcutaneous tissue and slough into the muscle. Severity: Fat Layer Exposed Amount of bleeding with debridement: Mild Bleeding Controlled with: Pressure, Compression and gauze Patient tolerated procedure well Assessment/Plan Active Problems Diabetic ulcer of lower leg (Chronic) Ulcer of left lower extremity with muscle involvement without evidence of necrosis (Chronic) Former smoker (Chronic) Abscess of left lower leg (Acute) Type 2 diabetes mellitus (Chronic) Assessment: 1. 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 2. Diabetes mellitus. 3. History of Streptococcal infection. 4. Former smoker. Plan: Wound care - Continue daily Dakin's 1/4 strength moistened gauze. Make sure to keep moistened gauze only on the ulcer and not on the surrounding skin. DOYLE wrap compression. Home health decreased to once per week visits. Wound culture obtained 04/17/20 which was positive for Klebsiella oxytoca, Enterobacter cloacae complex, Streptococcus agalactiae (B), Enterococcus faecalis, Bacteroides fragilis group, Prevotella melaninogenica, and Anaerobic cocci. He was started on Levaquin, Augmentin and a probiotic. His insurance will allow only 14 days of Levaquin. His operative culture showed Staphylococcus aureus. He was discharged on Keflex and has finished them. His Prealbumin from 03/10/20 was 9.1. Encourage nutritional supplementation with protein to help the healing process. Discussed advanced skin substitute grafts to help the healing process. He is interested. We will resubmit to his insurance approval for [employer]. Also discussed further operative intervention with debridement and skin grafting using an autograft. He wants to try the advanced skin substitute grafts first. Follow up 1 week. [id number]: [id number] Global Visit
[2020-05-15 08:19] VITALS: BP 170/98; PULSE 70; RESP 20; TEMP 36; BMI 33.8
--- NOTE | 2020-05-15 20:14 | PCM.WC.PN ---
Type of Wound Date of Service: 05/15/20 Chief Complaint: Nonhealing diabetic abscess ulcer left lateral leg. History of Wound: Surgery 03/08/20 - Surgical preparation left lateral leg with incision and drainage and excisional debridement diabetic abscess (72 cm2). Wound care - Daily Dakin's 1/4 strength moistened gauze with compression doyle wrap. Wound culture obtained 04/17/20 which was positive for Klebsiella oxytoca, Enterobacter cloacae complex, Streptococcus agalactiae (B), Enterococcus faecalis, Bacteroides fragilis group, Prevotella melaninogenica, and Anaerobic cocci. He was started on Levaquin, Augmentin and a probiotic. Operative culture showed Staphylococcus aureus. He was discharged on Keflex and has finished them. Prealbumin on 03/10/20 was 9.1. Encouraged nutritional supplementation with protein to help the healing process. Today he denies fever. His appetite is good. We have obtained approval for advanced skin substitute grafts, Thera-skin. Will start application next week. Progress of Wound: Improved. - Physical Exam Vital Signs Temp Pulse Resp BP 96.8 F L 70 20 H 170/98 H 05/15/20 08:19 05/15/20 08:19 05/15/20 08:19 05/15/20 08:19 Wound Measurements and Assessment WC - Nurse 1 - General Ulcer Measurement Start: 05/01/20 08:03 Freq: Status: Active Protocol: Activity Type Activity Date Activity User E-Sign Co-Sign Detail Recorded Client Recorded Date Recorded By Document 05/15/20 08:19 DL [id number] 05/15/20 08:28 DL 05/15/20 08:19 Wound Center Nurse 1 [Ulcer Assessment] #1 Left Lateral LE -Current Size (cm) - Length 7.8 -Current Size (cm) - Width 8.5 -Current Size (cm) - Depth 0.3 -Total Square Cm 66.30 -Photo Taken No -Exudate Amt Small -Exudate Type Serosanguineous -Wound Margin Distinct, Outline Attached -Granulation Amt Medium (34-66%) -Granulation Quality Red -Necrosis Amt Medium (34-66%) -Necrotic Tissue Type Adherent Slough -Structure Exposed N/A -Texture (Radha-wound Skin Appearance) Scarring -Moisture (Radha-wound Skin Appearance No Abnormality ) -Color (Radha-wound Skin Appearance) Rubor -Temperature (Radha-wound Skin No Abnormality Appearance) (Pt Warm) -Tenderness on Palpation (Radha-wound No Skin Appearance) -Ulcer Cleansing Wound Cleanser -Foul Odor after Cleansing No -Anesthetic Used 5% Lidocaine Gel JAYME - Nurse 2 - General Ulcer CM Notes Start: 05/01/20 08:03 Freq: Status: Active Protocol: Activity Type Activity Date Activity User E-Sign Co-Sign Detail Recorded Client Recorded Date Recorded By Document 05/15/20 08:57 LADAN [id number] 05/15/20 09:04 LADAN 05/15/20 08:57 Wound Center Nurse 2 [Procedure/Treatment] -Time 08:58 -Correct Patient Yes -Correct Side, Site, Position Yes -Correct Procedure Yes -Procedure Performed Yes -Type of Procedure Debridement -Clinical Debridement Subcutaneous -Tissue Removed Subcutaneous -Post Debridement (cm) - Length 7.5 -Post Debridement (cm) - Width 8.5 -Post Debridement (cm) - Depth 0.2 -Total Square (Post) (cm) 63.75 -Area of Debridement (cm) - Length 7.5 -Area of Debridement (cm) - Width 8.5 -Total Square (Area) (cm) 63.75 -Tunneling No -Undermining/Tunneling No -Circular Undermining No -Wound/Ulcer Outcome Not Healed -Ulcer Cleansing Rinsed/ Irrigated with Saline -Foul Odor after Cleansing No -Bioengineered Tissue No -Bleeding Controlled with Pressure -Offloading No -Treatment Response Procedure Tolerated Well -Debridement - Subq, 1st 20sq cm Yes -Debridement, SubQ, ea addt'l 20sq cm 3 or part thereof [See Physician Procedure note for Specifics] Pain Scale: 0-10 Numeric [Pain] -Is Patient Pain Free? Yes JAYME - Nurse 3 - General Ulcer D/C NN Start: 05/01/20 08:03 Freq: Status: Active Protocol: Activity Type Activity Date Activity User E-Sign Co-Sign Detail Recorded Client Recorded Date Recorded By Document 05/15/20 09:12 DL [id number] 05/15/20 09:13 DL 05/15/20 09:12 Wound Care Nurse 3 [Wound Dressing] #1 Left Lateral LE -Ulcer Cleansing Wound Cleanser -Foul Odor after Cleansing No -Other Dressing moist gauze -Primary Dressing Covered/Secured Dry Gauze & with Roll Gauze, Secured with Tape [Post Procedure Tolerated] -Treatment Response Procedure Tolerated Well Pain Scale: 0-10 Numeric [Pain] -Is Patient Pain Free? Yes - Visit Discharge [Visit Discharge Information] -Discharge Condition Stable -Ambulatory Status Ambulatory -Transportation Private Auto -Notes: Pt pt resume Dakins at home Debridement Note Post-Debridement Measurements/Treatment WC - Nurse 2 - General Ulcer CM Notes Start: 05/01/20 08:03 Freq: Status: Active Protocol: Activity Type Activity Date Activity User E-Sign Co-Sign Detail Recorded Client Recorded Date Recorded By Document 05/01/20 08:38 PL [id number] 05/01/20 08:43 PL Document 05/08/20 08:44 JF [id number] 05/08/20 08:45 JF Document 05/15/20 08:57 JF [id number] 05/15/20 09:04 JF 05/01/20 05/08/20 05/15/20 08:38 08:44 08:57 Wound Center Nurse 2 #1 Left Lateral LE -Time 08:40 08:58 -Correct Patient Yes Yes Yes -Correct Side, Site, Position Yes Yes Yes -Correct Procedure Yes Yes Yes -Procedure Performed Yes Yes Yes -Type of Procedure Debridement Debridement Debridement -Clinical Debridement Muscle / Fascia Muscle / Fascia Subcutaneous -Tissue Removed Subcutaneous, Muscle,Fascia Subcutaneous Muscle -Post Debridement (cm) - Length 8.5 8.1 7.5 -Post Debridement (cm) - Width 9.3 8.7 8.5 -Post Debridement (cm) - Depth 0.3 0.2 0.2 -Total Square (Post) (cm) 79.05 70.47 63.75 -Area of Debridement (cm) - Length 8.5 8.1 7.5 -Area of Debridement (cm) - Width 9.3 8.7 8.5 -Total Square (Area) (cm) 79.05 70.47 63.75 -Tunneling No No No -Undermining/Tunneling No No No -Circular Undermining No No No -Wound/Ulcer Outcome Not Healed Not Healed Not Healed -Ulcer Cleansing Rinsed/ Rinsed/ Rinsed/ Irrigated with Irrigated with Irrigated with Saline Saline Saline -Foul Odor after Cleansing No No No -Bioengineered Tissue No No No -Bleeding Controlled with NA,Pressure Pressure -Offloading No No -Treatment Response Procedure Procedure Tolerated Well Tolerated Well -Debridement - Subq, 1st 20sq cm Yes -Debridement, SubQ, ea addt'l 20sq cm 3 or part thereof -Debridement - Muscle / Fascia, 1st Yes Yes 20sq cm -Debridement, Muscle/Fascia, ea addt'l 3 3 20sq cm or part thereof Pain Scale: 0-10 Numeric Is Patient Pain Free? Yes Yes Yes - Nurse 3 - General Ulcer D/C NN Start: 05/01/20 08:03 Freq: Status: Active Protocol: Activity Type Activity Date Activity User E-Sign Co-Sign Detail Recorded Client Recorded Date Recorded By Document 05/01/20 08:54 MT [id number] 05/01/20 08:55 MT Document 05/08/20 08:[address] [facility] [id number] 05/08/20 08:[address] [facility] Document 05/15/20 09:12 DL [id number] 05/15/20 09:13 DL 05/01/20 05/08/20 05/15/20 08:54 08:47 09:12 Wound Care Nurse 3 #1 Left Lateral LE -Ulcer Cleansing Rinsed/ Wound Cleanser Irrigated with Saline -Foul Odor after Cleansing No No -Primary Dressing Applied Other -Other Dressing wet to dry MOIST TO DRY moist gauze -Primary Dressing Covered/Secured with Dry Gauze, Dry Gauze & Dry Gauze & Secured with Roll Gauze, Roll Gauze, Tape Secured with Secured with Tape Tape Left -Compression Wrap Doyle Wrap Doyle Wrap Treatment Response Procedure Procedure Tolerated Well Tolerated Well Pain Scale: 0-10 Numeric Is Patient Pain Free? Yes Yes - Visit Discharge Discharge Condition Stable Stable Stable Ambulatory Status Ambulatory Ambulatory Ambulatory Transportation Private Auto Private Auto Private Auto Medication Reconcilliation completed & No provided to patient/care provider Clinical Summary of Care Provided Yes Notes: Pt pt resume Celeste at home Facility Type Home Health Wound debrided: #1 Left lateral leg. Laterality: Left Wound Grade/Stage: 3. Type of Debridement: Excisional debridement Anesthesia Used: 4% Lidocaine Solution Depth: Down to and including healthy tissue, in the subcutaneous layer Percentage of wound debrided: 100 Instrument Used: 7mm curette Tissue Removed: subcutaneous tissue. Severity: Fat Layer Exposed Amount of bleeding with debridement: Mild Bleeding Controlled with: Pressure Patient tolerated procedure well Assessment/Plan Active Problems Diabetic ulcer of lower leg (Chronic) Ulcer of left lower extremity with muscle involvement without evidence of necrosis (Chronic) Former smoker (Chronic) Abscess of left lower leg (Acute) Type 2 diabetes mellitus (Chronic) Assessment: 1. 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 2. Diabetes mellitus. 3. History of Streptococcal infection. 4. Former smoker. Plan: Continue Dakin's dressing changes daily followed by DOYLE wrap compression. Wound culture obtained 04/17/20 which was positive for Klebsiella oxytoca, Enterobacter cloacae complex, Streptococcus agalactiae (B), Enterococcus faecalis, Bacteroides fragilis group, Prevotella melaninogenica, and Anaerobic cocci. He was started on Levaquin, Augmentin and a probiotic. He will continue the antibiotics for another couple of weeks. His operative culture showed Staphylococcus aureus. He was discharged on Keflex and has finished them. His Prealbumin from 03/10/20 was 9.1. Encourage nutritional supplementation with protein to help the healing process. Discussed advanced skin substitute grafts to help the healing process. He is interested. We have obtained approval for [employer]ibioticsskin. Will start next week. Also discussed further operative intervention with debridement and skin grafting using an autograft. He wants to try the advanced skin substitute grafts first. Follow up 1 week. [id number]: [id number] Global Visit - ICD-10 - Z48.89, L97.925, E11.622, L02.416, E11.9, Z86.19, Z87.891
[2020-05-22 10:39] VITALS: BP 121/85; PULSE 70; TEMP 36.2; BMI 33.8
--- NOTE | 2020-05-22 12:38 | PCM.WC.PN ---
(1) Ulcer of left lower extremity with muscle involvement without evidence of necrosis Status: Chronic Code(s): L97.925 - Non-pressure chronic ulcer of unspecified part of left lower leg with muscle involvement without evidence of necrosis (2) Diabetic ulcer of lower leg Status: Chronic Code(s): E11.622 - Type 2 diabetes mellitus with other skin ulcer; L97.909 - Non-pressure chronic ulcer of unspecified part of unspecified lower leg with unspecified severity (3) Former smoker Status: Chronic Code(s): Z87.891 - Personal history of nicotine dependence (4) Type 2 diabetes mellitus Status: Chronic Qualifiers: Code(s): E11.9 - Type 2 diabetes mellitus without complications Type of Wound Date of Service: 05/22/20 Chief Complaint: Nonhealing diabetic abscess ulcer left lateral leg. History of Wound: Surgery 03/08/20 - Surgical preparation left lateral leg with incision and drainage and excisional debridement diabetic abscess (72 cm2). Wound care - Left lateral ulcer Theraskin #1 placed today. Daily Dakin's 1/4 strength moistened gauze with compression doyle wrap to left posterior leg ulcer. Wound culture obtained 04/17/20 which was positive for Klebsiella oxytoca, Enterobacter cloacae complex, Streptococcus agalactiae (B), Enterococcus faecalis, Bacteroides fragilis group, Prevotella melaninogenica, and Anaerobic cocci. He was started on Levaquin, Augmentin and a probiotic. Operative culture showed Staphylococcus aureus. He was discharged on Keflex and has finished them. Prealbumin on 03/10/20 was 9.1. Encouraged nutritional supplementation with protein to help the healing process. Today he denies fever. His appetite is good. Progress of Wound: Improved. - Physical Exam Vital Signs Temp Pulse Resp BP 97.2 F L 70 20 H 121/85 H 05/22/20 10:39 05/22/20 10:39 05/15/20 08:19 05/22/20 10:39 General: Alert, Oriented x3, Cooperative HEENT: Atraumatic Oral: Moist Mucosa Lungs: Normal air movement Cardiovascular: Regular rate Extremities: Capillary Refill Less than 3 Seconds Skin: Ulcer/ Wound - Left lateral leg ulcer is beefy pink. New left posterior leg/achilles ulcer is dry with black scab. Wound Measurements and Assessment WC - Nurse 1 - General Ulcer Measurement Start: 05/01/20 08:03 Freq: Status: Active Protocol: Activity Type Activity Date Activity User E-Sign Co-Sign Detail Recorded Client Recorded Date Recorded By Document 05/22/20 10:39 NATALI [id number] 05/22/20 10:49 KR 05/22/20 10:39 Wound Center Nurse 1 [Ulcer Assessment] #2 Left heel -Current Size (cm) - Length 2 -Current Size (cm) - Width 1.5 -Current Size (cm) - Depth 0.2 -Total Square Cm 3.0 -Exudate Amt Medium -Exudate Type Serosanguineous -Wound Margin Distinct, Outline Attached -Granulation Amt Small (1-33%) -Granulation Quality Red -Necrosis Amt Small (1-33%) -Necrotic Tissue Type Adherent Slough -Texture (Radha-wound Skin Appearance) Assessed, Scarring -Color (Radha-wound Skin Appearance) No Abnormality, Assessed -Temperature (Radha-wound Skin No Abnormality Appearance) (Pt Warm) -Tenderness on Palpation (Radha-wound No Skin Appearance) -Ulcer Cleansing Rinsed/ Irrigated with Saline -Foul Odor after Cleansing No -Anesthetic Used 4% Lidocaine Solution #1 Left Lateral LE -Current Size (cm) - Length 7 -Current Size (cm) - Width 9.5 -Current Size (cm) - Depth 0.3 -Total Square Cm 66.5 -Exudate Amt Medium -Exudate Type Serosanguineous -Wound Margin Distinct, Outline Attached -Granulation Amt Large (67-100%) -Granulation Quality Red -Necrosis Amt None Present (0 %) -Texture (Radha-wound Skin Appearance) Assessed, Scarring -Color (Radha-wound Skin Appearance) No Abnormality, Assessed -Temperature (Radha-wound Skin No Abnormality Appearance) (Pt Warm) -Tenderness on Palpation (Radha-wound No Skin Appearance) -Ulcer Cleansing Rinsed/ Irrigated with Saline -Foul Odor after Cleansing No -Anesthetic Used 4% Lidocaine Solution [Edema Assessment] -Left Calf (cm) 42 -Left Ankle (cm) 26 WC - Nurse 2 - General Ulcer CM Notes Start: 05/01/20 08:03 Freq: Status: Active Protocol: Activity Type Activity Date Activity User E-Sign Co-Sign Detail Recorded Client Recorded Date Recorded By Document 05/22/20 11:18 LADAN [id number] 05/22/20 11:23 JF 05/22/20 11:18 Wound Center Nurse 2 [Procedure/Treatment] #2 Left heel -Time 11:19 -Correct Patient Yes -Correct Side, Site, Position Yes -Correct Procedure Yes -Procedure Performed Yes -Type of Procedure Debridement -Clinical Debridement Subcutaneous -Tissue Removed Subcutaneous -Post Debridement (cm) - Length 2 -Post Debridement (cm) - Width 1.4 -Post Debridement (cm) - Depth 0.1 -Total Square (Post) (cm) 2.8 -Area of Debridement (cm) - Length 2 -Area of Debridement (cm) - Width 1.4 -Total Square (Area) (cm) 2.8 -Tunneling No -Undermining/Tunneling No -Circular Undermining No -Wound/Ulcer Outcome Not Healed -Ulcer Cleansing Rinsed/ Irrigated with Saline -Foul Odor after Cleansing No -Bioengineered Tissue No -Bleeding Controlled with Pressure -Offloading No -Treatment Response Procedure Tolerated Well -Debridement - Subq, 1st 20sq cm Yes #1 Left Lateral LE -Time 11:19 -Correct Patient Yes -Correct Side, Site, Position Yes -Correct Procedure Yes -Procedure Performed Yes -Type of Procedure Debridement -Clinical Debridement Subcutaneous -Tissue Removed Subcutaneous -Post Debridement (cm) - Length 7.5 -Post Debridement (cm) - Width 9.3 -Post Debridement (cm) - Depth 0.1 -Total Square (Post) (cm) 69.75 -Area of Debridement (cm) - Length 7.5 -Area of Debridement (cm) - Width 9.3 -Total Square (Area) (cm) 69.75 -Tunneling No -Undermining/Tunneling No -Circular Undermining No -Wound/Ulcer Outcome Not Healed -Ulcer Cleansing Rinsed/ Irrigated with Saline -Foul Odor after Cleansing No -Bioengineered Tissue Yes -Type of Bioengineered Tissue Theraskin -Expiration Date 11/18/24 -Product Lot Number [id number] -Percent Used 100 -Lot number of Saline Used [id number] -Bleeding Controlled with Pressure -Offloading No -Treatment Response Procedure Tolerated Well -Debridement - Subq, 1st 20sq cm No -Apply Skin Sub - 1st 25 sq cm - Legs 1 -Apply Skin Sub - each addt'l 25 sq 2 cm - Legs -Theraskin (per sq cm) 39 [See Physician Procedure note for Specifics] Pain Scale: 0-10 Numeric [Pain] -Is Patient Pain Free? Yes - Nurse 3 - General Ulcer D/C NN Start: 05/01/20 08:03 Freq: Status: Active Protocol: Activity Type Activity Date Activity User E-Sign Co-Sign Detail Recorded Client Recorded Date Recorded By Document 05/22/20 11:44 NATALI [id number] 05/22/20 11:44 NATALI 05/22/20 11:44 Wound Care Nurse 3 [Wound Dressing] #2 Left heel -Ulcer Cleansing Rinsed/ Irrigated with Saline -Foul Odor after Cleansing No -Primary Dressing Covered/Secured Dry Gauze & with Roll Gauze, Secured with Tape #1 Left Lateral LE -Ulcer Cleansing Wound Cleanser -Foul Odor after Cleansing No -Primary Dressing Covered/Secured Dry Gauze & with Roll Gauze, Secured with Tape Pain Scale: 0-10 Numeric [Pain] -Is Patient Pain Free? Yes - Visit Discharge [Visit Discharge Information] -Discharge Condition Stable -Ambulatory Status Ambulatory -Transportation Private Auto Musculoskeletal: No Tenderness to Palpation of Joints or Extremities Neurological: Cranial nerves II-XII grossly intact Psych/Mental Status: Normal Affect, Appropriate Debridement Note Post-Debridement Measurements/Treatment - Nurse 2 - General Ulcer CM Notes Start: 05/01/20 08:03 Freq: Status: Active Protocol: Activity Type Activity Date Activity User E-Sign Co-Sign Detail Recorded Client Recorded Date Recorded By Document 05/01/20 08:38 JULIANNE [id number] 05/01/20 08:43 PL Document 05/08/20 08:44 LADAN [id number] 05/08/20 08:45 JF Document 05/15/20 08:57 JF [id number] 05/15/20 09:04 JF Document 05/22/20 11:18 JF [id number] 05/22/20 11:23 JF 05/01/20 05/08/20 05/15/20 08:38 08:44 08:57 Wound Center Nurse 2 #2 Left heel -Time -Correct Patient -Correct Side, Site, Position -Correct Procedure -Procedure Performed -Type of Procedure -Clinical Debridement -Tissue Removed -Post Debridement (cm) - Length -Post Debridement (cm) - Width -Post Debridement (cm) - Depth -Total Square (Post) (cm) -Area of Debridement (cm) - Length -Area of Debridement (cm) - Width -Total Square (Area) (cm) -Tunneling -Undermining/Tunneling -Circular Undermining -Wound/Ulcer Outcome -Ulcer Cleansing -Foul Odor after Cleansing -Bioengineered Tissue -Bleeding Controlled with -Offloading -Treatment Response -Debridement - Subq, 1st 20sq cm #1 Left Lateral LE -Time 08:40 08:58 -Correct Patient Yes Yes Yes -Correct Side, Site, Position Yes Yes Yes -Correct Procedure Yes Yes Yes -Procedure Performed Yes Yes Yes -Type of Procedure Debridement Debridement Debridement -Clinical Debridement Muscle / Fascia Muscle / Fascia Subcutaneous -Tissue Removed Subcutaneous, Muscle,Fascia Subcutaneous Muscle -Post Debridement (cm) - Length 8.5 8.1 7.5 -Post Debridement (cm) - Width 9.3 8.7 8.5 -Post Debridement (cm) - Depth 0.3 0.2 0.2 -Total Square (Post) (cm) 79.05 70.47 63.75 -Area of Debridement (cm) - Length 8.5 8.1 7.5 -Area of Debridement (cm) - Width 9.3 8.7 8.5 -Total Square (Area) (cm) 79.05 70.47 63.75 -Tunneling No No No -Undermining/Tunneling No No No -Circular Undermining No No No -Wound/Ulcer Outcome Not Healed Not Healed Not Healed -Ulcer Cleansing Rinsed/ Rinsed/ Rinsed/ Irrigated with Irrigated with Irrigated with Saline Saline Saline -Foul Odor after Cleansing No No No -Bioengineered Tissue No No No -Type of Bioengineered Tissue -Expiration Date -Product Lot Number -Percent Used -Lot number of Saline Used -Bleeding Controlled with NA,Pressure Pressure -Offloading No No -Treatment Response Procedure Procedure Tolerated Well Tolerated Well -Debridement - Subq, 1st 20sq cm Yes -Debridement, SubQ, ea addt'l 20sq cm 3 or part thereof -Debridement - Muscle / Fascia, 1st Yes Yes 20sq cm -Debridement, Muscle/Fascia, ea addt'l 3 3 20sq cm or part thereof -Apply Skin Sub - 1st 25 sq cm - Legs -Apply Skin Sub - each addt'l 25 sq cm - Legs -Theraskin (per sq cm) Pain Scale: 0-10 Numeric Is Patient Pain Free? Yes Yes Yes 05/22/20 11:18 Wound Center Nurse 2 #2 Left heel -Time 11:19 -Correct Patient Yes -Correct Side, Site, Position Yes -Correct Procedure Yes -Procedure Performed Yes -Type of Procedure Debridement -Clinical Debridement Subcutaneous -Tissue Removed Subcutaneous -Post Debridement (cm) - Length 2 -Post Debridement (cm) - Width 1.4 -Post Debridement (cm) - Depth 0.1 -Total Square (Post) (cm) 2.8 -Area of Debridement (cm) - Length 2 -Area of Debridement (cm) - Width 1.4 -Total Square (Area) (cm) 2.8 -Tunneling No -Undermining/Tunneling No -Circular Undermining No -Wound/Ulcer Outcome Not Healed -Ulcer Cleansing Rinsed/ Irrigated with Saline -Foul Odor after Cleansing No -Bioengineered Tissue No -Bleeding Controlled with Pressure -Offloading No -Treatment Response Procedure Tolerated Well -Debridement - Subq, 1st 20sq cm Yes #1 Left Lateral LE -Time 11:19 -Correct Patient Yes -Correct Side, Site, Position Yes -Correct Procedure Yes -Procedure Performed Yes -Type of Procedure Debridement -Clinical Debridement Subcutaneous -Tissue Removed Subcutaneous -Post Debridement (cm) - Length 7.5 -Post Debridement (cm) - Width 9.3 -Post Debridement (cm) - Depth 0.1 -Total Square (Post) (cm) 69.75 -Area of Debridement (cm) - Length 7.5 -Area of Debridement (cm) - Width 9.3 -Total Square (Area) (cm) 69.75 -Tunneling No -Undermining/Tunneling No -Circular Undermining No -Wound/Ulcer Outcome Not Healed -Ulcer Cleansing Rinsed/ Irrigated with Saline -Foul Odor after Cleansing No -Bioengineered Tissue Yes -Type of Bioengineered Tissue Theraskin -Expiration Date 11/18/24 -Product Lot Number [id number] -Percent Used 100 -Lot number of Saline Used [id number] -Bleeding Controlled with Pressure -Offloading No -Treatment Response Procedure Tolerated Well -Debridement - Subq, 1st 20sq cm No -Debridement, SubQ, ea addt'l 20sq cm or part thereof -Debridement - Muscle / Fascia, 1st 20sq cm -Debridement, Muscle/Fascia, ea addt'l 20sq cm or part thereof -Apply Skin Sub - 1st 25 sq cm - Legs 1 -Apply Skin Sub - each addt'l 25 sq cm 2 - Legs -Theraskin (per sq cm) 39 Pain Scale: 0-10 Numeric Is Patient Pain Free? Yes WC - Nurse 3 - General Ulcer D/C NN Start: 05/01/20 08:03 Freq: Status: Active Protocol: Activity Type Activity Date Activity User E-Sign Co-Sign Detail Recorded Client Recorded Date Recorded By Document 05/01/20 08:54 MT [id number] 05/01/20 08:55 MT Document 05/08/20 08:47 BMF [id number] 05/08/20 08:48 BMF Document 05/15/20 09:12 DL [id number] 05/15/20 09:13 DL Document 05/22/20 11:44 KR [id number] 05/22/20 11:44 KR 05/01/20 05/08/20 05/15/20 08:54 08:47 09:12 Wound Care Nurse 3 #2 Left heel -Ulcer Cleansing -Foul Odor after Cleansing -Primary Dressing Covered/Secured with #1 Left Lateral LE -Ulcer Cleansing Rinsed/ Wound Cleanser Irrigated with Saline -Foul Odor after Cleansing No No -Primary Dressing Applied Other -Other Dressing wet to dry MOIST TO DRY moist gauze -Primary Dressing Covered/Secured with Dry Gauze, Dry Gauze & Dry Gauze & Secured with Roll Gauze, Roll Gauze, Tape Secured with Secured with Tape Tape Left -Compression Wrap Doyle Wrap Doyle Wrap Treatment Response Procedure Procedure Tolerated Well Tolerated Well Pain Scale: 0-10 Numeric Is Patient Pain Free? Yes Yes - Visit Discharge Discharge Condition Stable Stable Stable Ambulatory Status Ambulatory Ambulatory Ambulatory Transportation Private Auto Private Auto Private Auto Medication Reconcilliation completed & No provided to patient/care provider Clinical Summary of Care Provided Yes Notes: Pt pt marito Alonso at home Facility Type Home Health 05/22/20 11:44 Wound Care Nurse 3 #2 Left heel -Ulcer Cleansing Rinsed/ Irrigated with Saline -Foul Odor after Cleansing No -Primary Dressing Covered/Secured with Dry Gauze & Roll Gauze, Secured with Tape #1 Left Lateral LE -Ulcer Cleansing Wound Cleanser -Foul Odor after Cleansing No -Primary Dressing Applied -Other Dressing -Primary Dressing Covered/Secured with Dry Gauze & Roll Gauze, Secured with Tape Left -Compression Wrap Treatment Response Pain Scale: 0-10 Numeric Is Patient Pain Free? Yes WC - Visit Discharge Discharge Condition Stable Ambulatory Status Ambulatory Transportation Private Auto Medication Reconcilliation completed & provided to patient/care provider Clinical Summary of Care Provided Notes: Facility Type Wound debrided: lateral leg ulcer Laterality: Left Type of Debridement: Excisional debridement Anesthesia Used: 5% Lidocaine Gel Depth: Down to and including healthy tissue, in the subcutaneous layer, to muscle Percentage of wound debrided: 100 Instrument Used: 7mm curette Tissue Removed: Subcutaneous tissue and slough into the muscle. Severity: Fat Layer Exposed Amount of bleeding with debridement: Moderate Bleeding Controlled with: Pressure, Compression and gauze Patient tolerated procedure well - Additional Wound Wound debrided: posterior leg/achilles area Laterality: Left Type of Debridement: Excisional debridement Anesthesia Used: 5% Lidocaine Gel Depth: Down to and including healthy tissue, in the subcutaneous layer Percentage of wound debrided: 100 Instrument Used: 5mm curette Tissue Removed: Subcutaneous tissue and slough Severity: Limited To Skin Breakdown Amount of bleeding with debridement: None Bleeding Controlled with: Pressure Patient tolerated procedure: Patient tolerated procedure well Assessment/Plan Active Problems Diabetic ulcer of lower leg (Chronic) Ulcer of left lower extremity with muscle involvement without evidence of necrosis (Chronic) Former smoker (Chronic) Abscess of left lower leg (Acute) Type 2 diabetes mellitus (Chronic) Assessment: 1. 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 2. Diabetes mellitus. 3. History of Streptococcal infection. 4. Former smoker. Plan: Wound care - Theraskin #1 placed today left lateral leg. 39 sq cm Lot # [id number]. 100 % of product used. It covered 1/2 of the ulcer. Start Dakin's dressing changes daily to new left posterior leg ulcer, followed by DOYLE wrap compression. Wound culture obtained 04/17/20 which was positive for Klebsiella oxytoca, Enterobacter cloacae complex, Streptococcus agalactiae (B), Enterococcus faecalis, Bacteroides fragilis group, Prevotella melaninogenica, and Anaerobic cocci. He was started on Levaquin, Augmentin and a probiotic. He will continue the antibiotics for another couple of weeks. His operative culture showed Staphylococcus aureus. He was discharged on Keflex and has finished them. His Prealbumin from 03/10/20 was 9.1. Encourage nutritional supplementation with protein to help the healing process. Discussed further operative intervention with debridement and skin grafting using an autograft. He wants to try the advanced skin substitute grafts first. Follow up 1 week. [id number]: 85132 Neelima subq tissue 20 sq cm/< - 79 modifier, left posterior leg/achilles ulcer - new 150xxx-152xx: [id number] Skin sub graft trnk/arm/leg - 58 modifier Add On Codes: 34697 Skin sub graft t/a/l add-on - 58 modifier- left lateral leg ulcer
== END 2020-05-28 23:59 ==
LOC: WC 10:30
PROVIDERS: PCP Family Medicine; Referring Provider Surgery; Visit Provider Nurse Practitioner Family
DX: E11.622 Type 2 diabetes mellitus with other skin ulcer (principal); L97.825 Non-pressure chronic ulcer of other part of left lower leg with muscle involvement without evidence of necrosis; L02.416 Cutaneous abscess of left lower limb; Z79.02 Long term (current) use of antithrombotics/antiplatelets; Z79.82 Long term (current) use of aspirin; Z79.4 Long term (current) use of insulin; Z79.899 Other long term (current) drug therapy; Z87.891 Personal history of nicotine dependence
CPT/HCPCS: 11042; 11043; 11045; 11046; 15271; 15272; Q4121

== ENCOUNTER 2020-06-19 08:00 | Outpatient (RCR) | payer BC, MEDICAID, SELFPAY ==
[2020-05-29 00:32] VITALS: BP 121/85; PULSE 70; RESP 20; TEMP 36.2
[2020-05-29 10:46] VITALS: BP 156/90; PULSE 77; TEMP 36.2; BMI 33.8
--- NOTE | 2020-05-29 13:10 | PN.PCM_ITS ---
(1) Ulcer of left lower extremity with muscle involvement without evidence of necrosis Status: Chronic Code(s): L97.925 - Non-pressure chronic ulcer of unspecified part of left lower leg with muscle involvement without evidence of necrosis (2) Diabetic ulcer of lower leg Status: Chronic Code(s): E11.622 - Type 2 diabetes mellitus with other skin ulcer; L97.909 - Non-pressure chronic ulcer of unspecified part of unspecified lower leg with unspecified severity (3) Former smoker Status: Chronic Code(s): Z87.891 - Personal history of nicotine dependence (4) Type 2 diabetes mellitus Status: Chronic Qualifiers: Code(s): E11.9 - Type 2 diabetes mellitus without complications Type of Wound Date of Service: 05/29/20 Chief Complaint: Nonhealing diabetic abscess ulcer left lateral leg. History of Wound: Surgery 03/08/20 - Surgical preparation left lateral leg with incision and drainage and excisional debridement diabetic abscess (72 cm2). Wound care - Left lateral ulcer Theraskin #2 placed today. Wound culture o btained 04/17/20 which was positive for Klebsiella oxytoca, Enterobacter cloacae complex, Streptococcus agalactiae (B), Enterococcus faecalis, Bacteroides fragilis group, Prevotella melaninogenica, and Anaerobic cocci. He was started on Levaquin, Augmentin and a probiotic. Operative culture showed Staphylococcus aureus. He was discharged on Keflex and has finished them. Prealbumin on 03/10/20 was 9.1. Encouraged nutritional supplementation with protein to help the healing process. Today he denies fever. His appetite is good. Progress of Wound: Improved. - Physical Exam Vital Signs Temp Pulse Resp BP 97.1 F L 77 20 H 156/90 H 05/29/20 10:46 05/29/20 10:46 05/29/20 00:32 05/29/20 10:46 General: Alert, Oriented x3, Cooperative HEENT: Atraumatic Oral: Moist Mucosa Lungs: Normal air movement Cardiovascular: Regular rate Extremities: Capillary Refill Less than 3 Seconds Skin: Ulcer/ Wound - Left leg ulcer is pink. Patient did not change outer dressing daily on ulcer since Theraskin was placed and there is maceration and increased biofilm. Left posterior ankle/achilles ulcer is dry and scabbing. Wound Measurements and Assessment WC - Nurse 1 - General Ulcer Measurement Start: 05/29/20 10:46 Freq: Status: Active Protocol: Activity Type Activity Date Activity User E-Sign Co-Sign Detail Recorded Client Recorded Date Recorded By Document 05/29/20 10:46 NATALI [id number] 05/29/20 10:49 NATALI 05/29/20 10:46 Wound Center Nurse 1 [Ulcer Assessment] #2 Left heel -Current Size (cm) - Length 1.2 -Current Size (cm) - Width 0.6 -Current Size (cm) - Depth 0.1 -Total Square Cm 0.72 -Exudate Amt Small -Exudate Type Serosanguineous -Wound Margin Distinct, Outline Attached -Granulation Amt None Present (0 %) -Necrosis Amt Large (67-100%) -Necrotic Tissue Type Adherent Slough -Texture (Radha-wound Skin Appearance) Assessed, Scarring -Moisture (Radha-wound Skin Appearance No Abnormality, ) Assessed -Color (Radha-wound Skin Appearance) No Abnormality, Assessed -Temperature (Radha-wound Skin No Abnormality Appearance) (Pt Warm) -Tenderness on Palpation (Radha-wound No Skin Appearance) -Ulcer Cleansing Rinsed/ Irrigated with Saline -Anesthetic Used 5% Lidocaine Gel WC - Nurse 2 - General Ulcer CM Notes Start: 05/29/20 10:46 Freq: Status: Active Protocol: Activity Type Activity Date Activity User E-Sign Co-Sign Detail Recorded Client Recorded Date Recorded By Document 05/29/20 10:57 LADAN [id number] 05/29/20 11:16 LADAN 05/29/20 10:57 Wound Center Nurse 2 [Procedure/Treatment] -Time 11:13 -Correct Patient Yes -Correct Side, Site, Position Yes -Correct Procedure Yes -Procedure Performed Yes -Type of Procedure Debridement -Clinical Debridement Subcutaneous -Tissue Removed Subcutaneous -Post Debridement (cm) - Length 1.7 -Post Debridement (cm) - Width 1 -Post Debridement (cm) - Depth 0.1 -Total Square (Post) (cm) 1.7 -Area of Debridement (cm) - Length 1.7 -Area of Debridement (cm) - Width 1 -Total Square (Area) (cm) 1.7 -Tunneling No -Undermining/Tunneling No -Circular Undermining No -Wound/Ulcer Outcome Not Healed -Ulcer Cleansing Rinsed/ Irrigated with Saline -Foul Odor after Cleansing No -Bioengineered Tissue No -Bleeding Controlled with Pressure -Offloading No -Treatment Response Procedure Tolerated Well -Debridement - Subq, 1st 20sq cm Yes #1 Left Lateral LE -Time 11:01 -Correct Patient Yes -Correct Side, Site, Position Yes -Correct Procedure Yes -Procedure Performed Yes -Type of Procedure Debridement -Clinical Debridement Subcutaneous -Tissue Removed Subcutaneous -Post Debridement (cm) - Length 7 -Post Debridement (cm) - Width 9 -Post Debridement (cm) - Depth 0.2 -Total Square (Post) (cm) 63 -Area of Debridement (cm) - Length 7 -Area of Debridement (cm) - Width 9 -Total Square (Area) (cm) 63 -Tunneling No -Undermining/Tunneling No -Circular Undermining No -Wound/Ulcer Outcome Not Healed -Ulcer Cleansing Rinsed/ Irrigated with Saline -Foul Odor after Cleansing No -Bioengineered Tissue Yes -Type of Bioengineered Tissue Theraskin -Expiration Date 11/30/24 -Product Lot Number [id number] -Percent Used 100 -Lot number of Saline Used [id number] -Bleeding Controlled with Pressure -Offloading No -Treatment Response Procedure Tolerated Well -Debridement - Subq, 1st 20sq cm No -Apply Skin Sub - 1st 25 sq cm - Legs 1 -Apply Skin Sub - each addt'l 25 sq 2 cm - Legs -Theraskin (per sq cm) 39 [See Physician Procedure note for Specifics] Pain Scale: 0-10 Numeric [Pain] -Is Patient Pain Free? Yes WC - Nurse 3 - General Ulcer D/C NN Start: 05/29/20 10:46 Freq: Status: Active Protocol: Activity Type Activity Date Activity User E-Sign Co-Sign Detail Recorded Client Recorded Date Recorded By Document 05/29/20 11:28 DL [id number] 05/29/20 11:33 DL 05/29/20 11:28 Wound Care Nurse 3 [Wound Dressing] #2 Left heel -Ulcer Cleansing Rinsed/ Irrigated with Saline -Foul Odor after Cleansing No -Primary Dressing Applied C Hydrogel ($), NonAdherent Contact Layer -Primary Dressing Covered/Secured Dry Gauze & with Roll Gauze, Secured with Tape #1 Left Lateral LE -Foul Odor after Cleansing No -Other Dressing Theraskin -Primary Dressing Covered/Secured Dry Gauze & with Roll Gauze, Secured with Tape [Post Procedure Tolerated] -Treatment Response Procedure Tolerated Well Pain Scale: 0-10 Numeric [Pain] -Is Patient Pain Free? Yes WC - Visit Discharge [Visit Discharge Information] -Discharge Condition Stable -Ambulatory Status Ambulatory -Transportation Private Auto Musculoskeletal: No Tenderness to Palpation of Joints or Extremities Neurological: Cranial nerves II-XII grossly intact Psych/Mental Status: Normal Affect, Appropriate Debridement Note Post-Debridement Measurements/Treatment WC - Nurse 2 - General Ulcer CM Notes Start: 05/29/20 10:46 Freq: Status: Active Protocol: Activity Type Activity Date Activity User E-Sign Co-Sign Detail Recorded Client Recorded Date Recorded By Document 05/29/20 10:57 LADAN [id number] 05/29/20 11:16 LADAN 05/29/20 10:57 Wound Center Nurse 2 #2 Left heel -Time 11:13 -Correct Patient Yes -Correct Side, Site, Position Yes -Correct Procedure Yes -Procedure Performed Yes -Type of Procedure Debridement -Clinical Debridement Subcutaneous -Tissue Removed Subcutaneous -Post Debridement (cm) - Length 1.7 -Post Debridement (cm) - Width 1 -Post Debridement (cm) - Depth 0.1 -Total Square (Post) (cm) 1.7 -Area of Debridement (cm) - Length 1.7 -Area of Debridement (cm) - Width 1 -Total Square (Area) (cm) 1.7 -Tunneling No -Undermining/Tunneling No -Circular Undermining No -Wound/Ulcer Outcome Not Healed -Ulcer Cleansing Rinsed/ Irrigated with Saline -Foul Odor after Cleansing No -Bioengineered Tissue No -Bleeding Controlled with Pressure -Offloading No -Treatment Response Procedure Tolerated Well -Debridement - Subq, 1st 20sq cm Yes #1 Left Lateral LE -Time 11:01 -Correct Patient Yes -Correct Side, Site, Position Yes -Correct Procedure Yes -Procedure Performed Yes -Type of Procedure Debridement -Clinical Debridement Subcutaneous -Tissue Removed Subcutaneous -Post Debridement (cm) - Length 7 -Post Debridement (cm) - Width 9 -Post Debridement (cm) - Depth 0.2 -Total Square (Post) (cm) 63 -Area of Debridement (cm) - Length 7 -Area of Debridement (cm) - Width 9 -Total Square (Area) (cm) 63 -Tunneling No -Undermining/Tunneling No -Circular Undermining No -Wound/Ulcer Outcome Not Healed -Ulcer Cleansing Rinsed/ Irrigated with Saline -Foul Odor after Cleansing No -Bioengineered Tissue Yes -Type of Bioengineered Tissue Theraskin -Expiration Date 11/30/24 -Product Lot Number [id number] -Percent Used 100 -Lot number of Saline Used [id number] -Bleeding Controlled with Pressure -Offloading No -Treatment Response Procedure Tolerated Well -Debridement - Subq, 1st 20sq cm No -Apply Skin Sub - 1st 25 sq cm - Legs 1 -Apply Skin Sub - each addt'l 25 sq cm 2 - Legs -Theraskin (per sq cm) 39 Pain Scale: 0-10 Numeric Is Patient Pain Free? Yes - Nurse 3 - General Ulcer D/C NN Start: 05/29/20 10:46 Freq: Status: Active Protocol: Activity Type Activity Date Activity User E-Sign Co-Sign Detail Recorded Client Recorded Date Recorded By Document 05/29/20 11:28 DL [id number] 05/29/20 11:33 DL 05/29/20 11:28 Wound Care Nurse 3 #2 Left heel -Ulcer Cleansing Rinsed/ Irrigated with Saline -Foul Odor after Cleansing No -Primary Dressing Applied C Hydrogel ($), NonAdherent Contact Layer -Primary Dressing Covered/Secured with Dry Gauze & Roll Gauze, Secured with Tape #1 Left Lateral LE -Foul Odor after Cleansing No -Other Dressing Theraskin -Primary Dressing Covered/Secured with Dry Gauze & Roll Gauze, Secured with Tape Treatment Response Procedure Tolerated Well Pain Scale: 0-10 Numeric Is Patient Pain Free? Yes - Visit Discharge Discharge Condition Stable Ambulatory Status Ambulatory Transportation Private Auto Wound debrided: lateral leg Laterality: Left Type of Debridement: Excisional debridement Anesthesia Used: 5% Lidocaine Gel Depth: Down to and including healthy tissue, in the subcutaneous layer, to muscle Percentage of wound debrided: 100 Instrument Used: 7mm curette Tissue Removed: Subcutaneous tissue and slough, including theraskin placed last week Severity: Fat Layer Exposed Amount of bleeding with debridement: Moderate Bleeding Controlled with: Pressure, Compression and gauze Patient tolerated procedure well Assessment/Plan Assessment: 1. 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 2. Diabetes mellitus. 3. History of Streptococcal infection. 4. Former smoker. Plan: Wound care - Theraskin #2 placed today left lateral leg. 39 sq cm. 100 % of product used. It covered the entire ulcer. Left achilles ulcer Start Collagen hydrgel covered with adaptic daily left posterior leg ulcer, followed by [place] wrap compression. Wound culture obtained 04/17/20 which was positive for Klebsi chris oxytoca, Enterobacter cloacae complex, Streptococcus agalactiae (B), Enterococcus faecalis, Bacteroides fragilis group, Prevotella melaninogenica, and Anaerobic cocci. He was started on Levaquin, Augmentin and a probiotic. He will continue the antibiotics for another couple of weeks. His operative culture showed Staphylococcus aureus. He was discharged on Keflex and has finished them. His Prealbumin from 03/10/20 was 9.1. Encourage nutritional supplementation with protein to help the healing process. Discussed further operative intervention with debridement and skin grafting using an autograft. He wants to try the advanced skin substitute grafts first. Follow up 1 week. [id number]: [id number] Neelima subq tissue 20 sq cm/< - 79 modifier left posterior ankle/achilles area 150xxx-152xx: [id number] Skin sub graft trnk/arm/leg Add On Codes: 86745 Skin sub graft t/a/l add-on - x2 with 58 modifier left lower leg ulcer.
[2020-06-05 11:00] VITALS: BP 125/93; PULSE 74; TEMP 36.4; BMI 33.8
--- NOTE | 2020-06-05 12:28 | PN.PCM_ITS ---
(1) Ulcer of left lower extremity with muscle involvement without evidence of necrosis Status: Chronic Code(s): L97.925 - Non-pressure chronic ulcer of unspecified part of left lower leg with muscle involvement without evidence of necrosis (2) Diabetic ulcer of lower leg Status: Chronic Code(s): E11.622 - Type 2 diabetes mellitus with other skin ulcer; L97.909 - Non-pressure chronic ulcer of unspecified part of unspecified lower leg with unspecified severity (3) Former smoker Status: Chronic Code(s): Z87.891 - Personal history of nicotine dependence (4) Type 2 diabetes mellitus Status: Chronic Qualifiers: Code(s): E11.9 - Type 2 diabetes mellitus without complications Type of Wound Date of Service: 06/05/20 Chief Complaint: Nonhealing diabetic abscess ulcer left lateral leg. History of Wound: Surgery 03/08/20 - Surgical preparation left lateral leg with incision and drainage and excisional debridement diabetic abscess (72 cm2). Wound care - Left lateral ulcer Theraskin #2 placed last week. Left achilles wound- collagen hydrogel. Wound culture obtained 04/17/20 which was positive for Klebsiella oxytoca, Enterobacter cloacae complex, Streptococcus agalactiae (B), Enterococcus faecalis, Bacteroides fragilis group, Prevotella melaninogenica, and Anaerobic cocci. He was started on Levaquin, Augmentin and a probiotic. Operative culture showed Staphylococcus aureus. He was discharged on Keflex and has finished them. Prealbumin on 03/10/20 was 9.1. Encouraged nutritional supplementation with protein to help the healing process. Today he denies fever. His appetite is good. Progress of Wound: Improved. - Physical Exam Vital Signs Temp Pulse Resp BP 97.5 F L 74 20 H 125/93 H 06/05/20 11:00 06/05/20 11:00 05/29/20 00:32 06/05/20 11:00 General: Alert, Oriented x3, Cooperative HEENT: Atraumatic, Normocephalic Oral: Moist Mucosa Lungs: Normal air movement Cardiovascular: Regular rate Extremities: No edema, Capillary Refill Less than 3 Seconds Skin: Ulcer/ Wound - Left lateral leg ulcer with theraskin in place. Left posterior ankle/achilles area ulcer is dry and stable. Wound Measurements and Assessment WC - Nurse 1 - General Ulcer Measurement Start: 05/29/20 10:46 Freq: Status: Active Protocol: Activity Type Activity Date Activity User E-Sign Co-Sign Detail Recorded Client Recorded Date Recorded By Document 06/05/20 11:00 NATALI [id number] 06/05/20 11:04 NATALI 06/05/20 11:00 Wound Center Nurse 1 [Ulcer Assessment] #2 Left heel -Current Size (cm) - Length 1.5 -Current Size (cm) - Width 1.2 -Current Size (cm) - Depth 0.1 -Total Square Cm 1.80 -Exudate Amt Small -Exudate Type Serosanguineous -Wound Margin Distinct, Outline Attached -Granulation Amt Large (67-100%) -Granulation Quality [place],Red -Necrosis Amt None Present (0 %) -Texture (Radha-wound Skin Appearance) Assessed, Scarring -Moisture (Radha-wound Skin Appearance No Abnormality, ) Assessed -Color (Radha-wound Skin Appearance) No Abnormality, Assessed -Temperature (Radha-wound Skin No Abnormality Appearance) (Pt Warm) -Tenderness on Palpation (Radha-wound No Skin Appearance) -Ulcer Cleansing soap and water -Foul Odor after Cleansing No -Anesthetic Used 4% Lidocaine Solution #1 Left Lateral LE -Current Size (cm) - Length 0.1 -Current Size (cm) - Width 0.1 -Current Size (cm) - Depth 0.1 -Total Square Cm 0.01 -Exudate Amt Large -Exudate Type Serosanguineous -Wound Margin Distinct, Outline Attached -Granulation Amt Medium (34-66%) -Granulation Quality Red -Necrosis Amt Medium (34-66%) -Necrotic Tissue Type Adherent Slough -Texture (Radha-wound Skin Appearance) Assessed, Scarring -Moisture (Radha-wound Skin Appearance No Abnormality, ) Assessed -Color (Radha-wound Skin Appearance) No Abnormality, Assessed -Temperature (Radha-wound Skin No Abnormality Appearance) (Pt Warm) -Tenderness on Palpation (Radha-wound No Skin Appearance) -Ulcer Cleansing soap and water -Foul Odor after Cleansing No WC - Nurse 2 - General Ulcer CM Notes Start: 05/29/20 10:46 Freq: Status: Active Protocol: Activity Type Activity Date Activity User E-Sign Co-Sign Detail Recorded Client Recorded Date Recorded By Document 06/05/20 11:40 LADAN [id number] 06/05/20 11:43 JF 06/05/20 11:40 Wound Center Nurse 2 [Procedure/Treatment] #2 Left heel -Time 11:40 -Correct Patient Yes -Correct Side, Site, Position Yes -Correct Procedure Yes -Procedure Performed Yes -Type of Procedure Debridement -Clinical Debridement Subcutaneous -Tissue Removed Subcutaneous -Post Debridement (cm) - Length 1.7 -Post Debridement (cm) - Width 1 -Post Debridement (cm) - Depth 0.1 -Total Square (Post) (cm) 1.7 -Area of Debridement (cm) - Length 1.7 -Area of Debridement (cm) - Width 1 -Total Square (Area) (cm) 1.7 -Tunneling No -Undermining/Tunneling No -Circular Undermining No -Wound/Ulcer Outcome Not Healed -Ulcer Cleansing Rinsed/ Irrigated with Saline -Foul Odor after Cleansing No -Bioengineered Tissue No -Bleeding Controlled with Pressure -Offloading No -Treatment Response Procedure Tolerated Well -Debridement - Subq, 1st 20sq cm Yes #1 Left Lateral LE -Correct Patient No -Correct Side, Site, Position No -Correct Procedure No -Procedure Performed No -Tunneling No -Undermining/Tunneling No -Circular Undermining No -Wound/Ulcer Outcome Not Healed -Debridement - Subq, 1st 20sq cm No [See Physician Procedure note for Specifics] Pain Scale: 0-10 Numeric [Pain] -Is Patient Pain Free? Yes WC - Nurse 3 - General Ulcer D/C NN Start: 05/29/20 10:46 Freq: Status: Active Protocol: Activity Type Activity Date Activity User E-Sign Co-Sign Detail Recorded Client Recorded Date Recorded By Document 06/05/20 11:57 DL [id number] 06/05/20 11:59 DL 06/05/20 11:57 Wound Care Nurse 3 [Wound Dressing] #2 Left heel -Ulcer Cleansing Rinsed/ Irrigated with Saline -Primary Dressing Applied NonAdherent Contact Layer -Other Dressing hydrogel -Primary Dressing Covered/Secured Dry Gauze, with Secured with Tape #1 Left Lateral LE -Foul Odor after Cleansing No -Other Dressing Theraskin -Primary Dressing Covered/Secured Dry Gauze, with Secured with Tape [Compression Applied] Left -Tubular Bandage Single Layer -Size of Tubigrip Used Size D -Size D ($) 1 [Post Procedure Tolerated] -Treatment Response Procedure Tolerated Well Pain Scale: 0-10 Numeric [Pain] -Is Patient Pain Free? Yes - Visit Discharge [Visit Discharge Information] -Ambulatory Status Ambulatory -Transportation Private Auto Musculoskeletal: No Tenderness to Palpation of Joints or Extremities Neurological: Cranial nerves II-XII grossly intact Psych/Mental Status: Normal Affect Debridement Note Post-Debridement Measurements/Treatment - Nurse 2 - General Ulcer CM Notes Start: 05/29/20 10:46 Freq: Status: Active Protocol: Activity Type Activity Date Activity User E-Sign Co-Sign Detail Recorded Client Recorded Date Recorded By Document 05/29/20 10:57 [id number] 05/29/20 11:16 Document 06/05/20 11:40 [id number] 06/05/20 11:43 05/29/20 06/05/20 10:57 11:40 Wound Center Nurse 2 #2 Left heel -Time 11:13 11:40 -Correct Patient Yes Yes -Correct Side, Site, Position Yes Yes -Correct Procedure Yes Yes -Procedure Performed Yes Yes -Type of Procedure Debridement Debridement -Clinical Debridement Subcutaneous Subcutaneous -Tissue Removed Subcutaneous Subcutaneous -Post Debridement (cm) - Length 1.7 1.7 -Post Debridement (cm) - Width 1 1 -Post Debridement (cm) - Depth 0.1 0.1 -Total Square (Post) (cm) 1.7 1.7 -Area of Debridement (cm) - Length 1.7 1.7 -Area of Debridement (cm) - Width 1 1 -Total Square (Area) (cm) 1.7 1.7 -Tunneling No No -Undermining/Tunneling No No -Circular Undermining No No -Wound/Ulcer Outcome Not Healed Not Healed -Ulcer Cleansing Rinsed/ Rinsed/ Irrigated with Irrigated with Saline Saline -Foul Odor after Cleansing No No -Bioengineered Tissue No No -Bleeding Controlled with Pressure Pressure -Offloading No No -Treatment Response Procedure Procedure Tolerated Well Tolerated Well -Debridement - Subq, 1st 20sq cm Yes Yes #1 Left Lateral LE -Time 11:01 -Correct Patient Yes No -Correct Side, Site, Position Yes No -Correct Procedure Yes No -Procedure Performed Yes No -Type of Procedure Debridement -Clinical Debridement Subcutaneous -Tissue Removed Subcutaneous -Post Debridement (cm) - Length 7 -Post Debridement (cm) - Width 9 -Post Debridement (cm) - Depth 0.2 -Total Square (Post) (cm) 63 -Area of Debridement (cm) - Length 7 -Area of Debridement (cm) - Width 9 -Total Square (Area) (cm) 63 -Tunneling No No -Undermining/Tunneling No No -Circular Undermining No No -Wound/Ulcer Outcome Not Healed Not Healed -Ulcer Cleansing Rinsed/ Irrigated with Saline -Foul Odor after Cleansing No -Bioengineered Tissue Yes -Type of Bioengineered Tissue Theraskin -Expiration Date 11/30/24 -Product Lot Number [id number] -Percent Used 100 -Lot number of Saline Used [id number] -Bleeding Controlled with Pressure -Offloading No -Treatment Response Procedure Tolerated Well -Debridement - Subq, 1st 20sq cm No No -Apply Skin Sub - 1st 25 sq cm - Legs 1 -Apply Skin Sub - each addt'l 25 sq cm 2 - Legs -Theraskin (per sq cm) 39 Pain Scale: 0-10 Numeric Is Patient Pain Free? Yes Yes - Nurse 3 - General Ulcer D/C NN Start: 05/29/20 10:46 Freq: Status: Active Protocol: Activity Type Activity Date Activity User E-Sign Co-Sign Detail Recorded Client Recorded Date Recorded By Document 05/29/20 11:28 DL [id number] 05/29/20 11:33 DL Document 06/05/20 11:57 DL [id number] 06/05/20 11:59 DL 05/29/20 06/05/20 11:28 11:57 Wound Care Nurse 3 #2 Left heel -Ulcer Cleansing Rinsed/ Rinsed/ Irrigated with Irrigated with Saline Saline -Foul Odor after Cleansing No -Primary Dressing Applied C Hydrogel ($), NonAdherent NonAdherent Contact Layer Contact Layer -Other Dressing hydrogel -Primary Dressing Covered/Secured with Dry Gauze & Dry Gauze, Roll Gauze, Secured with Secured with Tape Tape #1 Left Lateral LE -Foul Odor after Cleansing No No -Other Dressing Theraskin Theraskin -Primary Dressing Covered/Secured with Dry Gauze & Dry Gauze, Roll Gauze, Secured with Secured with Tape Tape Left -Tubular Bandage Single Layer -Size of Tubigrip Used Size D -Size D ($) 1 Treatment Response Procedure Procedure Tolerated Well Tolerated Well Pain Scale: 0-10 Numeric Is Patient Pain Free? Yes Yes WC - Visit Discharge Discharge Condition Stable Ambulatory Status Ambulatory Ambulatory Transportation Private Auto Private Auto Wound debrided: Posterior ankle/achilles Laterality: Left Type of Debridement: Excisional debridement Anesthesia Used: 5% Lidocaine Gel Depth: Down to and including healthy tissue, in the subcutaneous layer Percentage of wound debrided: 100 Instrument Used: 5mm curette Tissue Removed: Subcutaneous tissue and slough Severity: Fat Layer Exposed Amount of bleeding with debridement: Mild Bleeding Controlled with: Pressure Patient tolerated procedure well - Additional Wound Wound debrided: Lateral leg ulcer - not debrided today, theraskin in place Laterality: Left Assessment/Plan Active Problems Diabetic ulcer of lower leg (Chronic) Ulcer of left lower extremity with muscle involvement without evidence of necrosis (Chronic) Former smoker (Chronic) Type 2 diabetes mellitus (Chronic) Assessment: 1. 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 2. Diabetes mellitus. 3. History of Streptococcal infection. 4. Former smoker. Plan: Wound care - Theraskin #2 placed last week left lateral leg. 39 sq cm. 100 % of product used. It covered the entire ulcer. Left achilles ulcer Collagen hydrgel covered with adaptic daily left posterior leg ulcer, followed by [place] wrap compression. Wound culture obtained 04/17/20 which was positive for Klebsiella oxytoca, Enterobacter cloacae complex, Streptococcus agalactiae (B), Enterococcus faecalis, Bacteroides fragilis group, Prevotella melaninogenica, and Anaerobic cocci. He was started on Levaquin, Augmentin and a probiotic, which he has completed. His operative culture showed Staphylococcus aureus. He was discharged on Keflex and has finished them. His Prealbumin from 03/10/20 was 9.1. Encourage nutritional supplementation with protein to help the healing process. Discussed further operative intervention with debridement and skin grafting using an autograft. He wants to try the advanced skin substitute gr afts first. Follow up 1 week. 111xxx-113xx: [id number] Neelima subq tissue 20 sq cm/< - 79 modifier- left posterior ankle/achilles ulcer
[2020-06-12 08:21] VITALS: BP 167/92; PULSE 62; RESP 17; TEMP 35.8; BMI 33.8
--- NOTE | 2020-06-12 09:19 | PCM.WC.PN ---
(1) Ulcer of left lower extremity with muscle involvement without evidence of necrosis Status: Chronic Code(s): L97.925 - Non-pressure chronic ulcer of unspecified part of left lower leg with muscle involvement without evidence of necrosis (2) Diabetic ulcer of lower leg Status: Chronic Code(s): E11.622 - Type 2 diabetes mellitus with other skin ulcer; L97.909 - Non-pressure chronic ulcer of unspecified part of unspecified lower leg with unspecified severity (3) Former smoker Status: Chronic Code(s): Z87.891 - Personal history of nicotine dependence (4) Type 2 diabetes mellitus Status: Chronic Qualifiers: Code(s): E11.9 - Type 2 diabetes mellitus without complications Type of Wound Date of Service: 06/12/20 Chief Complaint: Nonhealing diabetic abscess ulcer left lateral leg. History of Wound: Surgery 03/08/20 - Surgical preparation left lateral leg with incision and drainage and excisional debridement diabetic abscess (72 cm2). Wound care - Left lateral ulcer Theraskin #3 placed today. Left achilles wound- collagen hydrogel. Wound culture obtained 04/17/20 which was positive for Klebsiella oxytoca, Enterobacter cloacae complex, Streptococcus agalactiae (B), Enterococcus faecalis, Bacteroides fragilis group, Prevotella melaninogenica, and Anaerobic cocci. He was started on Levaquin, Augmentin and a probiotic. Operative culture showed Staphylococcus aureus. He was discharged on Keflex and has finished them. Prealbumin on 03/10/20 was 9.1. Encouraged nutritional supplementation with protein to help the healing process. Today he denies fever. His appetite is good. Progress of Wound: Improved. - Physical Exam Vital Signs Temp Pulse Resp BP 96.5 F L 62 17 167/92 H 06/12/20 08:21 06/12/20 08:21 06/12/20 08:21 06/12/20 08:21 General: Alert, Oriented x3, Cooperative HEENT: Atraumatic Oral: Moist Mucosa Lungs: Normal air movement Cardiovascular: Regular rate Extremities: Capillary Refill Less than 3 Seconds, Edema Skin: Ulcer/ Wound - Left lateral leg ulcer is beefy pink and improving in size. Left posterior ankle/achilles ulcer continues to have thick biofilm that is difficult to remove. Bleeds around the edges. Wound Measurements and Assessment WC - Nurse 1 - General Ulcer Measurement Start: 05/29/20 10:46 Freq: Status: Active Protocol: Activity Type Activity Date Activity User E-Sign Co-Sign Detail Recorded Client Recorded Date Recorded By Document 06/12/20 08:21 MS [id number] 06/12/20 08:31 MS 06/12/20 08:21 Wound Center Nurse 1 [Ulcer Assessment] #2 Left heel -Combined with other wound No -Current Size (cm) - Length 1.8 -Current Size (cm) - Width 0.8 -Current Size (cm) - Depth 0.1 -Total Square Cm 1.44 -Epithelialization Small 1-33% -Exudate Amt Medium -Exudate Type Serosanguineous -Wound Margin Distinct, Outline Attached -Granulation Amt Small (1-33%) -Slough/Fibrin Yes -Moisture (Radha-wound Skin Appearance No Abnormality ) -Ulcer Cleansing soap and water -Foul Odor after Cleansing No -Anesthetic Used 4% Lidocaine Solution #1 Left Lateral LE -Combined with other wound No -Current Size (cm) - Length 6.6 -Current Size (cm) - Width 7.3 -Current Size (cm) - Depth 0.1 -Total Square Cm 48.18 -Epithelialization None Present -Exudate Amt Medium -Exudate Type Serosanguineous -Wound Margin Distinct, Outline Attached -Granulation Amt Medium (34-66%) -Slough/Fibrin Yes -Necrosis Amt Medium (34-66%) -Temperature (Radha-wound Skin No Abnormality Appearance) (Pt Warm) -Ulcer Cleansing soap and water -Foul Odor after Cleansing No -Anesthetic Used 4% Lidocaine Solution WC - Nurse 2 - General Ulcer CM Notes Start: 05/29/20 10:46 Freq: Status: Active Protocol: Activity Type Activity Date Activity User E-Sign Co-Sign Detail Recorded Client Recorded Date Recorded By Document 06/12/20 09:02 [email or web address] [id number] 06/12/20 09:16 LADAN 06/12/20 09:02 Wound Center Nurse 2 [Procedure/Treatment] #2 Left heel -Time 09:14 -Correct Patient Yes -Correct Side, Site, Position Yes -Correct Procedure Yes -Procedure Performed Yes -Type of Procedure Debridement -Clinical Debridement Subcutaneous -Tissue Removed Subcutaneous -Post Debridement (cm) - Length 1.7 -Post Debridement (cm) - Width 0.8 -Post Debridement (cm) - Depth 0.2 -Total Square (Post) (cm) 1.36 -Area of Debridement (cm) - Length 1.7 -Area of Debridement (cm) - Width 0.8 -Total Square (Area) (cm) 1.36 -Tunneling No -Undermining/Tunneling No -Circular Undermining No -Wound/Ulcer Outcome Not Healed -Ulcer Cleansing Rinsed/ Irrigated with Saline -Foul Odor after Cleansing No -Bioengineered Tissue No -Bleeding Controlled with Pressure -Offloading No -Treatment Response Procedure Tolerated Well -Debridement - Subq, 1st 20sq cm Yes #1 Left Lateral LE -Time 09:03 -Correct Patient Yes -Correct Side, Site, Position Yes -Correct Procedure Yes -Procedure Performed Yes -Type of Procedure Debridement -Clinical Debridement Subcutaneous -Tissue Removed Subcutaneous -Post Debridement (cm) - Length 6.7 -Post Debridement (cm) - Width 7.2 -Post Debridement (cm) - Depth 0.3 -Total Square (Post) (cm) 48.24 -Area of Debridement (cm) - Length 6.7 -Area of Debridement (cm) - Width 7.3 -Total Square (Area) (cm) 48.91 -Tunneling No -Undermining/Tunneling No -Circular Undermining No -Wound/Ulcer Outcome Not Healed -Ulcer Cleansing Rinsed/ Irrigated with Saline -Foul Odor after Cleansing No -Bioengineered Tissue Yes -Type of Bioengineered Tissue Theraskin -Expiration Date 11/23/24 -Product Lot Number [id number] -Percent Used 100 -Lot number of Saline Used [id number] -Bleeding Controlled with Pressure -Offloading No -Treatment Response Procedure Tolerated Well -Debridement - Subq, 1st 20sq cm No -Apply Skin Sub - 1st 25 sq cm - Legs 1 -Apply Skin Sub - each addt'l 25 sq 1 cm - Legs -Theraskin (per sq cm) 39 [See Physician Procedure note for Specifics] Pain Scale: 0-10 Numeric [Pain] -Is Patient Pain Free? Yes WC - Nurse 3 - General Ulcer D/C NN Start: 05/29/20 10:46 Freq: Status: Active Protocol: Activity Type Activity Date Activity User E-Sign Co-Sign Detail Recorded Client Recorded Date Recorded By Document 06/12/20 09:25 DL [id number] 06/12/20 09:26 DL 06/12/20 09:25 Wound Care Nurse 3 [Wound Dressing] #2 Left heel -Ulcer Cleansing Rinsed/ Irrigated with Saline -Foul Odor after Cleansing No -Primary Dressing Applied NonAdherent Contact Layer -Other Dressing hyddrogel -Primary Dressing Covered/Secured Dry Gauze & with Roll Gauze, Secured with Tape #1 Left Lateral LE -Other Dressing Theraskin -Primary Dressing Covered/Secured Dry Gauze & with Roll Gauze, Secured with Tape [Compression Applied] Left -Other tubigrip Pain Scale: 0-10 Numeric [Pain] -Is Patient Pain Free? Yes WC - Visit Discharge [Visit Discharge Information] -Discharge Condition Stable -Ambulatory Status Ambulatory -Transportation Private Auto Musculoskeletal: No Tenderness to Palpation of Joints or Extremities Neurological: Cranial nerves II-XII grossly intact Psych/Mental Status: Normal Affect, Appropriate Debridement Note Post-Debridement Measurements/Treatment WC - Nurse 2 - General Ulcer CM Notes Start: 05/29/20 10:46 Freq: Status: Active Protocol: Activity Type Activity Date Activity User E-Sign Co-Sign Detail Recorded Client Recorded Date Recorded By Document 05/29/20 10:57 [id number] 05/29/20 11:16 Document 06/05/20 11:40 [id number] 06/05/20 11:43 Document 06/12/20 09:02 [id number] 06/12/20 09:16 05/29/20 06/05/20 06/12/20 10:57 11:40 09:02 Wound Center Nurse 2 #2 Left heel -Time 11:13 11:40 09:14 -Correct Patient Yes Yes Yes -Correct Side, Site, Position Yes Yes Yes -Correct Procedure Yes Yes Yes -Procedure Performed Yes Yes Yes -Type of Procedure Debridement Debridement Debridement -Clinical Debridement Subcutaneous Subcutaneous Subcutaneous -Tissue Removed Subcutaneous Subcutaneous Subcutaneous -Post Debridement (cm) - Length 1.7 1.7 1.7 -Post Debridement (cm) - Width 1 1 0.8 -Post Debridement (cm) - Depth 0.1 0.1 0.2 -Total Square (Post) (cm) 1.7 1.7 1.36 -Area of Debridement (cm) - Length 1.7 1.7 1.7 -Area of Debridement (cm) - Width 1 1 0.8 -Total Square (Area) (cm) 1.7 1.7 1.36 -Tunneling No No No -Undermining/Tunneling No No No -Circular Undermining No No No -Wound/Ulcer Outcome Not Healed Not Healed Not Healed -Ulcer Cleansing Rinsed/ Rinsed/ Rinsed/ Irrigated with Irrigated with Irrigated with Saline Saline Saline -Foul Odor after Cleansing No No No -Bioengineered Tissue No No No -Bleeding Controlled with Pressure Pressure Pressure -Offloading No No No -Treatment Response Procedure Procedure Procedure Tolerated Well Tolerated Well Tolerated Well -Debridement - Subq, 1st 20sq cm Yes Yes Yes #1 Left Lateral LE -Time 11:01 09:03 -Correct Patient Yes No Yes -Correct Side, Site, Position Yes No Yes -Correct Procedure Yes No Yes -Procedure Performed Yes No Yes -Type of Procedure Debridement Debridement -Clinical Debridement Subcutaneous Subcutaneous -Tissue Removed Subcutaneous Subcutaneous -Post Debridement (cm) - Length 7 6.7 -Post Debridement (cm) - Width 9 7.2 -Post Debridement (cm) - Depth 0.2 0.3 -Total Square (Post) (cm) 63 48.24 -Area of Debridement (cm) - Length 7 6.7 -Area of Debridement (cm) - Width 9 7.3 -Total Square (Area) (cm) 63 48.91 -Tunneling No No No -Undermining/Tunneling No No No -Circular Undermining No No No -Wound/Ulcer Outcome Not Healed Not Healed Not Healed -Ulcer Cleansing Rinsed/ Rinsed/ Irrigated with Irrigated with Saline Saline -Foul Odor after Cleansing No No -Bioengineered Tissue Yes Yes -Type of Bioengineered Tissue Theraskin Theraskin -Expiration Date 11/30/24 11/23/24 -Product Lot Number [id number] -Percent Used 100 100 -Lot number of Saline Used [id number] -Bleeding Controlled with Pressure Pressure -Offloading No No -Treatment Response Procedure Procedure Tolerated Well Tolerated Well -Debridement - Subq, 1st 20sq cm No No No -Apply Skin Sub - 1st 25 sq cm - Legs 1 1 -Apply Skin Sub - each addt'l 25 sq cm 2 1 - Legs -Theraskin (per sq cm) 39 39 Pain Scale: 0-10 Numeric Is Patient Pain Free? Yes Yes Yes - Nurse 3 - General Ulcer D/C NN Start: 05/29/20 10:46 Freq: Status: Active Protocol: Activity Type Activity Date Activity User E-Sign Co-Sign Detail Recorded Client Recorded Date Recorded By Document 05/29/20 11:28 DL [id number] 05/29/20 11:33 DL Document 06/05/20 11:57 DL [id number] 06/05/20 11:59 DL Document 06/12/20 09:25 DL [id number] 06/12/20 09:26 DL 05/29/20 06/05/20 06/12/20 11:28 11:57 09:25 Wound Care Nurse 3 #2 Left heel -Ulcer Cleansing Rinsed/ Rinsed/ Rinsed/ Irrigated with Irrigated with Irrigated with Saline Saline Saline -Foul Odor after Cleansing No No -Primary Dressing Applied C Hydrogel ($), NonAdherent NonAdherent NonAdherent Contact Layer Contact Layer Contact Layer -Other Dressing hydrogel hyddrogel -Primary Dressing Covered/Secured with Dry Gauze & Dry Gauze, Dry Gauze & Roll Gauze, Secured with Roll Gauze, Secured with Tape Secured with Tape Tape #1 Left Lateral LE -Foul Odor after Cleansing No No -Other Dressing Theraskin Theraskin Theraskin -Primary Dressing Covered/Secured with Dry Gauze & Dry Gauze, Dry Gauze & Roll Gauze, Secured with Roll Gauze, Secured with Tape Secured with Tape Tape Left -Tubular Bandage Single Layer -Size of Tubigrip Used Size D -Size D ($) 1 -Other tubigrip Treatment Response Procedure Procedure Tolerated Well Tolerated Well Pain Scale: 0-10 Numeric Is Patient Pain Free? Yes Yes Yes - Visit Discharge Discharge Condition Stable Stable Ambulatory Status Ambulatory Ambulatory Ambulatory Transportation Private Auto Private Auto Private Auto Wound debrided: Lateral leg ulcer Laterality: Left Type of Debridement: Excisional debridement Anesthesia Used: 5% Lidocaine Gel Depth: Down to and including healthy tissue, in the subcutaneous layer, to muscle Percentage of wound debrided: 100 Instrument Used: 7mm curette Tissue Removed: Subcutaneous tissue and slough Severity: Fat Layer Exposed Amount of bleeding with debridement: Moderate Bleeding Controlled with: Pressure, Compression and gauze Patient tolerated procedure well - Additional Wound Wound debrided: posterior ankle/achilles ulcer Laterality: Left Type of Debridement: Excisional debridement Anesthesia Used: 5% Lidocaine Gel Depth: Down to and including healthy tissue, in the subcutaneous layer Percentage of wound debrided: 100 Instrument Used: 3mm curette Tissue Removed: Subcutaneous tissue and slough Severity: Fat Layer Exposed Amount of bleeding with debridement: Mild Bleeding Controlled with: Pressure Patient tolerated procedure: Patient tolerated procedure well Assessment/Plan Active Problems Diabetic ulcer of lower leg (Chronic) Ulcer of left lower extremity with muscle involvement without evidence of necrosis (Chronic) Former smoker (Chronic) Type 2 diabetes mellitus (Chronic) Assessment: 1. 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 2. Diabetes mellitus. 3. History of Streptococcal infection. 4. Former smoker. Plan: Wound care - Theraskin #3 placed today. 39 sq cm. 100 % of product used. It covered the entire ulcer. Left achilles ulcer Collagen hydrgel covered with adaptic daily left posterior leg ulcer, followed by Tubigrip for compression. Wound culture obtained 04/17/20 which was positive for Klebsiella oxytoca, Enterobacter cloacae complex, Streptococcus agalactiae (B), Enterococcus faecalis, Bacteroides fragilis group, Prevotella melaninogenica, and Anaerobic cocci. He was started on Levaquin, Augmentin and a probiotic, which he has completed. His operative culture showed Staphylococcus aureus. He was discharged on Keflex and has finished them. His Prealbumin from 03/10/20 was 9.1. Encourage nutritional supplementation with protein to help the healing process. Discussed further operative intervention with debridement and skin grafting using an autograft. He wants to try the advanced skin substitute grafts first. Follow up 1 week. [id number]: [id number] Neelima subq tissue 20 sq cm/< - Left posterior ankle/achilles ulcer [id number]: [id number] Skin sub graft trnk/arm/leg - left lateral leg Add On Codes: 98481 Skin sub graft t/a/l add-on - x1 left lateral leg
[2020-06-19 08:11] VITALS: BP 136/90; PULSE 73; RESP 18; TEMP 36.1; BMI 33.8
--- NOTE | 2020-06-19 13:11 | PN.PCM_ITS ---
(1) Ulcer of left lower extremity with muscle involvement without evidence of necrosis Status: Chronic Code(s): L97.925 - Non-pressure chronic ulcer of unspecified part of left lower leg with muscle involvement without evidence of necrosis (2) Diabetic ulcer of lower leg Status: Chronic Code(s): E11.622 - Type 2 diabetes mellitus with other skin ulcer; L97.909 - Non-pressure chronic ulcer of unspecified part of unspecified lower leg with unspecified severity (3) Former smoker Status: Chronic Code(s): Z87.891 - Personal history of nicotine dependence (4) Type 2 diabetes mellitus Status: Chronic Qualifiers: Code(s): E11.9 - Type 2 diabetes mellitus without complications Type of Wound Date of Service: 06/19/20 Chief Complaint: Nonhealing diabetic abscess ulcer left lateral leg. History of Wound: Surgery 03/08/20 - Surgical preparation left lateral leg with incision and drainage and excisional debridement diabetic abscess (72 cm2). Wound care - Left lateral ulcer Theraskin #3 placed last week. Left achilles wound- collagen hydrogel. Wound culture obtained 04/17/20 which was positive for Klebsiella oxytoca, Enterobacter cloacae complex, Streptococcus agalactiae (B), Enterococcus faecalis, Bacteroides fragilis group, Prevotella melaninogenica, and Anaerobic cocci. He was started on Levaquin, Augmentin and a probiotic. Operative culture showed Staphylococcus aureus. He was discharged on Keflex and has finished them. Prealbumin on 03/10/20 was 9.1. Encouraged nutritional supplementation with protein to help the healing process. Today he denies fever. His appetite is good. Progress of Wound: Improved. - Physical Exam Vital Signs Temp Pulse Resp BP 96.9 F L 73 18 136/90 H 06/19/20 08:11 06/19/20 08:11 06/19/20 08:11 06/19/20 08:11 General: Alert, Oriented x3, Cooperative HEENT: Atraumatic Oral: Moist Mucosa Lungs: Normal air movement Cardiovascular: Regular rate Extremities: Capillary Refill Less than 3 Seconds, Edema, Peripheral Pulses Normal Skin: Ulcer/ Wound - Left leg ulcer has theraskin in place. Left achilles ulcer is pink and much less biofilm in place today. There was bleeding after debridement and able to remove all the biofilm today. Wound Measurements and Assessment WC - Nurse 1 - General Ulcer Measurement Start: 05/29/20 10:46 Freq: Status: Active Protocol: Activity Type Activity Date Activity User E-Sign Co-Sign Detail Recorded Client Recorded Date Recorded By Document 06/19/20 08:11 DL [id number] 06/19/20 08:19 DL 06/19/20 08:11 Wound Center Nurse 1 [Ulcer Assessment] #2 Left heel -Current Size (cm) - Length 0.9 -Current Size (cm) - Width 0.5 -Current Size (cm) - Depth 0.1 -Total Square Cm 0.45 -Photo Taken No -Exudate Amt None Present -Wound Margin Distinct, Outline Attached -Granulation Amt Small (1-33%) -Granulation Quality Captree -Necrosis Amt Small (1-33%) -Necrotic Tissue Type Adherent Slough -Structure Exposed N/A -Texture (Radha-wound Skin Appearance) Scarring -Moisture (Radha-wound Skin Appearance No Abnormality ) -Color (Radha-wound Skin Appearance) No Abnormality -Temperature (Radha-wound Skin No Abnormality Appearance) (Pt Warm) -Tenderness on Palpation (Radha-wound No Skin Appearance) -Ulcer Cleansing Wound Cleanser -Anesthetic Used 4% Lidocaine Solution #1 Left Lateral LE -Photo Taken No -Exudate Amt Medium -Exudate Type Serosanguineous -Temperature (Radha-wound Skin No Abnormality Appearance) (Pt Warm) -Tenderness on Palpation (Radha-wound No Skin Appearance) -Ulcer Cleansing Wound Cleanser -Foul Odor after Cleansing No [Edema Assessment] -Left Calf (cm) 41.1 -Left Ankle (cm) 23.2 WC - Nurse 2 - General Ulcer CM Notes Start: 05/29/20 10:46 Freq: Status: Active Protocol: Activity Type Activity Date Activity User E-Sign Co-Sign Detail Recorded Client Recorded Date Recorded By Document 06/19/20 08:58 LADAN [id number] 06/19/20 09:00 LADAN 06/19/20 08:58 Wound Center Nurse 2 [Procedure/Treatment] #2 Left heel -Correct Patient Yes -Correct Side, Site, Position Yes -Correct Procedure Yes -Procedure Performed Yes -Type of Procedure Debridement -Clinical Debridement Subcutaneous -Tissue Removed Subcutaneous -Post Debridement (cm) - Length 1.5 -Post Debridement (cm) - Width 0.6 -Post Debridement (cm) - Depth 0.2 -Total Square (Post) (cm) 0.90 -Area of Debridement (cm) - Length 1.5 -Area of Debridement (cm) - Width 0.6 -Total Square (Area) (cm) 0.90 -Tunneling No -Undermining/Tunneling No -Circular Undermining No -Wound/Ulcer Outcome Not Healed -Ulcer Cleansing Rinsed/ Irrigated with Saline -Foul Odor after Cleansing No -Bioengineered Tissue No -Bleeding Controlled with Pressure -Offloading No -Treatment Response Procedure Tolerated Well -Debridement - Subq, 1st 20sq cm Yes #1 Left Lateral LE -Correct Patient No -Correct Side, Site, Position No -Correct Procedure No -Procedure Performed No -Wound/Ulcer Outcome Not Healed [See Physician Procedure note for Specifics] Pain Scale: 0-10 Numeric [Pain] -Is Patient Pain Free? Yes - Nurse 3 - General Ulcer D/C NN Start: 05/29/20 10:46 Freq: Status: Active Protocol: Activity Type Activity Date Activity User E-Sign Co-Sign Detail Recorded Client Recorded Date Recorded By Document 06/19/20 09:06 GRADY [id number] 06/19/20 09:07 DL 06/19/20 09:06 Wound Care Nurse 3 [Wound Dressing] #2 Left heel -Ulcer Cleansing Rinsed/ Irrigated with Saline -Foul Odor after Cleansing No -Primary Dressing Applied NonAdherent Contact Layer, Other -Other Dressing hydrogel -Primary Dressing Covered/Secured Dry Gauze, with Secured with Tape #1 Left Lateral LE -Primary Dressing Applied Other -Other Dressing theraskin -Primary Dressing Covered/Secured Dry Gauze & with Roll Gauze, Secured with Tape [Compression Applied] Left -Tubular Bandage Double Layer -Size of Tubigrip Used Size D -Size D ($) 1 [Post Procedure Tolerated] -Treatment Response Procedure Tolerated Well Pain Scale: 0-10 Numeric [Pain] -Is Patient Pain Free? Yes - Visit Discharge [Visit Discharge Information] -Discharge Condition Stable -Ambulatory Status Ambulatory -Transportation Private [employer] Musculoskeletal: No Tenderness to Palpation of Joints or Extremities Neurological: Cranial nerves II-XII grossly intact Psych/Mental Status: Normal Affect, Appropriate Debridement Note Post-Debridement Measurements/Treatment WC - Nurse 2 - General Ulcer CM Notes Start: 05/29/20 10:46 Freq: Status: Active Protocol: Activity Type Activity Date Activity User E-Sign Co-Sign Detail Recorded Client Recorded Date Recorded By Document 05/29/20 10:57 [id number] 05/29/20 11:16 JF Document 06/05/20 11:40 JF [id number] 06/05/20 11:43 JF Document 06/12/20 09:02 JF [id number] 06/12/20 09:16 JF Document 06/19/20 08:58 [id number] 06/19/20 09:00 JF 05/29/20 06/05/20 06/12/20 10:57 11:40 09:02 Wound Center Nurse 2 #2 Left heel -Time 11:13 11:40 09:14 -Correct Patient Yes Yes Yes -Correct Side, Site, Position Yes Yes Yes -Correct Procedure Yes Yes Yes -Procedure Performed Yes Yes Yes -Type of Procedure Debridement Debridement Debridement -Clinical Debridement Subcutaneous Subcutaneous Subcutaneous -Tissue Removed Subcutaneous Subcutaneous Subcutaneous -Post Debridement (cm) - Length 1.7 1.7 1.7 -Post Debridement (cm) - Width 1 1 0.8 -Post Debridement (cm) - Depth 0.1 0.1 0.2 -Total Square (Post) (cm) 1.7 1.7 1.36 -Area of Debridement (cm) - Length 1.7 1.7 1.7 -Area of Debridement (cm) - Width 1 1 0.8 -Total Square (Area) (cm) 1.7 1.7 1.36 -Tunneling No No No -Undermining/Tunneling No No No -Circular Undermining No No No -Wound/Ulcer Outcome Not Healed Not Healed Not Healed -Ulcer Cleansing Rinsed/ Rinsed/ Rinsed/ Irrigated with Irrigated with Irrigated with Saline Saline Saline -Foul Odor after Cleansing No No No -Bioengineered Tissue No No No -Bleeding Controlled with Pressure Pressure Pressure -Offloading No No No -Treatment Response Procedure Procedure Procedure Tolerated Well Tolerated Well Tolerated Well -Debridement - Subq, 1st 20sq cm Yes Yes Yes #1 Left Lateral LE -Time 11:01 09:03 -Correct Patient Yes No Yes -Correct Side, Site, Position Yes No Yes -Correct Procedure Yes No Yes -Procedure Performed Yes No Yes -Type of Procedure Debridement Debridement -Clinical Debridement Subcutaneous Subcutaneous -Tissue Removed Subcutaneous Subcutaneous -Post Debridement (cm) - Length 7 6.7 -Post Debridement (cm) - Width 9 7.2 -Post Debridement (cm) - Depth 0.2 0.3 -Total Square (Post) (cm) 63 48.24 -Area of Debridement (cm) - Length 7 6.7 -Area of Debridement (cm) - Width 9 7.3 -Total Square (Area) (cm) 63 48.91 -Tunneling No No No -Undermining/Tunneling No No No -Circular Undermining No No No -Wound/Ulcer Outcome Not Healed Not Healed Not Healed -Ulcer Cleansing Rinsed/ Rinsed/ Irrigated with Irrigated with Saline Saline -Foul Odor after Cleansing No No -Bioengineered Tissue Yes Yes -Type of Bioengineered Tissue Theraskin Theraskin -Expiration Date 11/30/24 11/23/24 -Product Lot Number [id number] -Percent Used 100 100 -Lot number of Saline Used [id number] -Bleeding Controlled with Pressure Pressure -Offloading No No -Treatment Response Procedure Procedure Tolerated Well Tolerated Well -Debridement - Subq, 1st 20sq cm No No No -Apply Skin Sub - 1st 25 sq cm - Legs 1 1 -Apply Skin Sub - each addt'l 25 sq cm 2 1 - Legs -Theraskin (per sq cm) 39 39 Pain Scale: 0-10 Numeric Is Patient Pain Free? Yes Yes Yes 06/19/20 08:58 Wound Center Nurse 2 #2 Left heel -Time -Correct Patient Yes -Correct Side, Site, Position Yes -Correct Procedure Yes -Procedure Performed Yes -Type of Procedure Debridement -Clinical Debridement Subcutaneous -Tissue Removed Subcutaneous -Post Debridement (cm) - Length 1.5 -Post Debridement (cm) - Width 0.6 -Post Debridement (cm) - Depth 0.2 -Total Square (Post) (cm) 0.90 -Area of Debridement (cm) - Length 1.5 -Area of Debridement (cm) - Width 0.6 -Total Square (Area) (cm) 0.90 -Tunneling No -Undermining/Tunneling No -Circular Undermining No -Wound/Ulcer Outcome Not Healed -Ulcer Cleansing Rinsed/ Irrigated with Saline -Foul Odor after Cleansing No -Bioengineered Tissue No -Bleeding Controlled with Pressure -Offloading No -Treatment Response Procedure Tolerated Well -Debridement - Subq, 1st 20sq cm Yes #1 Left Lateral LE -Time -Correct Patient No -Correct Side, Site, Position No -Correct Procedure No -Procedure Performed No -Type of Procedure -Clinical Debridement -Tissue Removed -Post Debridement (cm) - Length -Post Debridement (cm) - Width -Post Debridement (cm) - Depth -Total Square (Post) (cm) -Area of Debridement (cm) - Length -Area of Debridement (cm) - Width -Total Square (Area) (cm) -Tunneling -Undermining/Tunneling -Circular Undermining -Wound/Ulcer Outcome Not Healed -Ulcer Cleansing -Foul Odor after Cleansing -Bioengineered Tissue -Type of Bioengineered Tissue -Expiration Date -Product Lot Number -Percent Used -Lot number of Saline Used -Bleeding Controlled with -Offloading -Treatment Response -Debridement - Subq, 1st 20sq cm -Apply Skin Sub - 1st 25 sq cm - Legs -Apply Skin Sub - each addt'l 25 sq cm - Legs -Theraskin (per sq cm) Pain Scale: 0-10 Numeric Is Patient Pain Free? Yes WC - Nurse 3 - General Ulcer D/C NN Start: 05/29/20 10:46 Freq: Status: Active Protocol: Activity Type Activity Date Activity User E-Sign Co-Sign Detail Recorded Client Recorded Date Recorded By Document 05/29/20 11:28 DL [id number] 05/29/20 11:33 DL Document 06/05/20 11:57 DL [id number] 06/05/20 11:59 DL Document 06/12/20 09:25 DL [id number] 06/12/20 09:26 DL Document 06/19/20 09:06 DL [id number] 06/19/20 09:07 DL 05/29/20 06/05/20 06/12/20 11:28 11:57 09:25 Wound Care Nurse 3 #2 Left heel -Ulcer Cleansing Rinsed/ Rinsed/ Rinsed/ Irrigated with Irrigated with Irrigated with Saline Saline Saline -Foul Odor after Cleansing No No -Primary Dressing Applied C Hydrogel ($), NonAdherent NonAdherent NonAdherent Contact Layer Contact Layer Contact Layer -Other Dressing hydrogel hyddrogel -Primary Dressing Covered/Secured with Dry Gauze & Dry Gauze, Dry Gauze & Roll Gauze, Secured with Roll Gauze, Secured with Tape Secured with Tape Tape #1 Left Lateral LE -Foul Odor after Cleansing No No -Primary Dressing Applied -Other Dressing Theraskin Theraskin Theraskin -Primary Dressing Covered/Secured with Dry Gauze & Dry Gauze, Dry Gauze & Roll Gauze, Secured with Roll Gauze, Secured with Tape Secured with Tape Tape Left -Tubular Bandage Single Layer -Size of Tubigrip Used Size D -Size D ($) 1 -Other tubigrip Treatment Response Procedure Procedure Tolerated Well Tolerated Well Pain Scale: 0-10 Numeric Is Patient Pain Free? Yes Yes Yes WC - Visit Discharge Discharge Condition Stable Stable Ambulatory Status Ambulatory Ambulatory Ambulatory Transportation [employer] 06/19/20 09:06 Wound Care Nurse 3 #2 Left heel -Ulcer Cleansing Rinsed/ Irrigated with Saline -Foul Odor after Cleansing No -Primary Dressing Applied NonAdherent Contact Layer, Other -Other Dressing hydrogel -Primary Dressing Covered/Secured with Dry Gauze, Secured with Tape #1 Left Lateral LE -Foul Odor after Cleansing -Primary Dressing Applied Other -Other Dressing theraskin -Primary Dressing Covered/Secured with Dry Gauze & Roll Gauze, Secured with Tape Left -Tubular Bandage Double Layer -Size of Tubigrip Used Size D -Size D ($) 1 -Other Treatment Response Procedure Tolerated Well Pain Scale: 0-10 Numeric Is Patient Pain Free? Yes WC - Visit Discharge Discharge Condition Stable Ambulatory Status Ambulatory Transportation [employer] Wound debrided: Achilles/posterior ankle ulcer Laterality: Left Type of Debridement: Excisional debridement Anesthesia Used: 5% Lidocaine Gel Depth: Down to and including healthy tissue, in the subcutaneous layer Percentage of wound debrided: 100 Instrument Used: 3mm curette Tissue Removed: Subcutaneous tissue and slough Severity: Fat Layer Exposed Amount of bleeding with debridement: Mild Bleeding Controlled with: Pressure Patient tolerated procedure well Assessment/Plan Active Problems Diabetic ulcer of lower leg (Chronic) Ulcer of left lower extremity with muscle involvement without evidence of necrosis (Chronic) Former smoker (Chronic) Type 2 diabetes mellitus (Chronic) Assessment: 1. 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 2. Diabete s mellitus. 3. History of Streptococcal infection. 4. Former smoker. Plan: Wound care - Theraskin #3 placed last week left lateral leg. 39 sq cm. 100 % of product used. It covered the entire ulcer. Left achilles ulcer Collagen hydrgel covered with adaptic daily left posterior leg ulcer, followed by double tubigrip for compression. Wound culture obtained 04/17/20 which was positive for Klebsiella oxytoca, Enterobacter cloacae complex, Streptococcus agalactiae (B), Enterococcus faecalis, Bacteroides fragilis group, Prevotella melaninogenica, and Anaerobic cocci. He was started on Levaquin, Augmentin and a probiotic, which he has completed. His operative culture showed Staphylococcus aureus. He was discharged on Keflex and has finished them. His Prealbumin from 03/10/20 was 9.1. Encourage nutritional supplementation with protein to help the healing process. Discussed further operative intervention with debridement and skin grafting using an autograft. He wants to try the advanced skin substitute grafts first. Patient would like to increase his activity with his job. He may go to sites but is not to be climbing ladders or standing one position for long periods of time. It is ok for him to be walking. Follow up 1 week. [id number]: [id number] Neelima subq tissue 20 sq cm/<
== END 2020-06-25 23:59 ==
LOC: WC 08:00
PROVIDERS: PCP Family Medicine; Referring Provider Surgery; Visit Provider Nurse Practitioner Family
DX: E11.622 Type 2 diabetes mellitus with other skin ulcer (principal); Z87.891 Personal history of nicotine dependence; L97.822 Non-pressure chronic ulcer of other part of left lower leg with fat layer exposed; Z86.19 Personal history of other infectious and parasitic diseases; L97.422 Non-pressure chronic ulcer of left heel and midfoot with fat layer exposed; E11.621 Type 2 diabetes mellitus with foot ulcer
CPT/HCPCS: 11042; 15271; 15272; Q4121

== ENCOUNTER 2020-07-24 08:30 | Outpatient (RCR) | payer BC, MEDICAID, SELFPAY ==
[2020-06-26 00:28] VITALS: BP 136/90; PULSE 73; RESP 18; TEMP 36.1
[2020-06-26 08:13] VITALS: BP 150/86; PULSE 72; RESP 16; TEMP 36.1; BMI 33.8
--- NOTE | 2020-06-26 11:01 | PCM.WC.PN ---
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 Code(s): E11.622 - Type 2 diabetes mellitus with other skin ulcer; L97.909 - Non-pressure chronic ulcer of unspecified part of unspecified lower leg with unspecified severity (2) Ulcer of left lower extremity with muscle involvement without evidence of necrosis Status: Chronic Code(s): L97.925 - Non-pressure chronic ulcer of unspecified part of left lower leg with muscle involvement without evidence of necrosis (3) Type 2 diabetes mellitus Status: Chronic Qualifiers: Code(s): E11.9 - Type 2 diabetes mellitus without complications (4) Former smoker Status: Chronic Code(s): Z87.891 - Personal history of nicotine dependence Type of Wound Date of Service: 06/26/20 Chief Complaint: Nonhealing diabetic abscess ulcer left lateral leg. History of Wound: Surgery 03/08/20 - Surgical preparation left lateral leg with incision and drainage and excisional debridement diabetic abscess (72 cm2). Wound care - Left lateral ulcer Theraskin #4 placed this week. Left achilles wound- collagen hydrogel covered by Adaptic. Wound culture obtained 04/17/20 which was positive for Klebsiella oxytoca, Enterobacter cloacae complex, Streptococcus agalactiae (B), Enterococcus faecalis, Bacteroides fragilis group, Prevotella melaninogenica, and Anaerobic cocci. He was started on Levaquin, Augmentin and a probiotic. Operative culture showed Staphylococcus aureus. He was discharged on Keflex and has finished them. Prealbumin on 03/10/20 was 9.1. Encouraged nutritional supplementation with protein to help the healing process. Today he denies fever. His appetite is good. Progress of Wound: Improved. - Physical Exam Vital Signs Temp Pulse Resp BP 96.9 F L 72 16 150/86 H 06/26/20 08:13 06/26/20 08:13 06/26/20 08:13 06/26/20 08:13 General: Alert, Oriented x3, Cooperative HEENT: Atraumatic Oral: Moist Mucosa Lungs: Normal air movement Cardiovascular: Regular rate Extremities: Capillary Refill Less than 3 Seconds, Edema - +1 edema Skin: Ulcer/ Wound - Left lateral leg ulcer beefy pink. Improving in size. Left posterior ankle/Achilles ulcer with decreased biofilm. Wound Measurements and Assessment WC - Nurse 1 - General Ulcer Measurement Start: 06/26/20 08:13 Freq: Status: Active Protocol: Activity Type Activity Date Activity User E-Sign Co-Sign Detail Recorded Client Recorded Date Recorded By Document 06/26/20 08:13 [facility] [id number] 06/26/20 08:22 [facility] 06/26/20 08:13 Wound Center Nurse 1 [Ulcer Assessment] #2 Left heel -Combined with other wound No -Current Size (cm) - Length 0.7 -Current Size (cm) - Width 0.4 -Current Size (cm) - Depth 0.2 -Total Square Cm 0.28 -Photo Taken No -Epithelialization Small 1-33% -Tunneling No -Undermining/Tunneling No -Circular Undermining No -Exudate Amt Small -Exudate Type Serosanguineous -Wound Margin Distinct, Outline Attached -Granulation Amt Small (1-33%) -Granulation Quality [place] -Slough/Fibrin Yes -Necrosis Amt Large (67-100%) -Necrotic Tissue Type Adherent Slough -Texture (Radha-wound Skin Appearance) Assessed, Scarring -Moisture (Radha-wound Skin Appearance Assessed,Dry/ ) Scaly -Color (Radha-wound Skin Appearance) Assessed -Temperature (Radha-wound Skin No Abnormality Appearance) (Pt Warm) -Tenderness on Palpation (Radha-wound No Skin Appearance) -Ulcer Cleansing soapy water -Foul Odor after Cleansing No -Anesthetic Used 4% Lidocaine Solution #1 Left Lateral LE -Combined with other wound No -Current Size (cm) - Length 6 -Current Size (cm) - Width 6.1 -Current Size (cm) - Depth 0.1 -Total Square Cm 36.6 -Photo Taken No -Epithelialization Small 1-33% -Tunneling No -Undermining/Tunneling No -Circular Undermining No -Exudate Amt Large -Exudate Type Serosanguineous -Wound Margin Distinct, Outline Attached -Granulation Amt Large (67-100%) -Granulation Quality Red -Slough/Fibrin Yes -Necrosis Amt Small (1-33%) -Necrotic Tissue Type Adherent Slough -Texture (Radha-wound Skin Appearance) Assessed, Scarring -Moisture (Radha-wound Skin Appearance Assessed,Dry/ ) Scaly -Color (Radha-wound Skin Appearance) Assessed -Temperature (Radha-wound Skin No Abnormality Appearance) (Pt Warm) -Tenderness on Palpation (Radha-wound No Skin Appearance) -Ulcer Cleansing soapy water -Foul Odor after Cleansing No -Anesthetic Used 4% Lidocaine Solution [Edema Assessment] -Lower Limb Edema Present Yes -Left Calf (cm) 42.2 -Left Ankle (cm) 23.4 WC - Nurse 2 - General Ulcer CM Notes Start: 06/26/20 08:13 Freq: Status: Active Protocol: Activity Type Activity Date Activity User E-Sign Co-Sign Detail Recorded Client Recorded Date Recorded By Document 06/26/20 08:46 [id number] 06/26/20 08:57 LADAN 06/26/20 08:46 Wound Center Nurse 2 [Procedure/Treatment] #2 Left heel -Time 08:46 -Correct Patient Yes -Correct Side, Site, Position Yes -Correct Procedure Yes -Procedure Performed Yes -Type of Procedure Debridement -Clinical Debridement Subcutaneous -Tissue Removed Subcutaneous -Post Debridement (cm) - Length 1.0 -Post Debridement (cm) - Width 0.5 -Post Debridement (cm) - Depth 0.2 -Total Square (Post) (cm) 0.50 -Area of Debridement (cm) - Length 1.0 -Area of Debridement (cm) - Width 0.5 -Total Square (Area) (cm) 0.50 -Tunneling No -Undermining/Tunneling No -Circular Undermining No -Wound/Ulcer Outcome Not Healed -Ulcer Cleansing Rinsed/ Irrigated with Saline -Foul Odor after Cleansing No -Bioengineered Tissue No -Bleeding Controlled with Pressure -Offloading No -Treatment Response Procedure Tolerated Well -Debridement - Subq, 1st 20sq cm Yes #1 Left Lateral LE -Time 08:46 -Correct Patient Yes -Correct Side, Site, Position Yes -Correct Procedure Yes -Procedure Performed Yes -Type of Procedure Debridement -Clinical Debridement Subcutaneous -Tissue Removed Subcutaneous -Post Debridement (cm) - Length 6.2 -Post Debridement (cm) - Width 5.8 -Post Debridement (cm) - Depth 0.1 -Total Square (Post) (cm) 35.96 -Area of Debridement (cm) - Length 6.2 -Area of Debridement (cm) - Width 5.8 -Total Square (Area) (cm) 35.96 -Tunneling No -Undermining/Tunneling No -Circular Undermining No -Wound/Ulcer Outcome Not Healed -Ulcer Cleansing Rinsed/ Irrigated with Saline -Foul Odor after Cleansing No -Bioengineered Tissue Yes -Type of Bioengineered Tissue Theraskin -Expiration Date 12/15/24 -Product Lot Number [id number] -Percent Used 100 -Lot number of Saline Used [id number] -Bleeding Controlled with Pressure -Offloading No -Treatment Response Procedure Tolerated Well -Debridement - Subq, 1st 20sq cm No -Apply Skin Sub - 1st 25 sq cm - Legs 1 -Apply Skin Sub - each addt'l 25 sq 1 cm - Legs -Theraskin (per sq cm) 39 [See Physician Procedure note for Specifics] Pain Scale: 0-10 Numeric [Pain] -Is Patient Pain Free? Yes - Nurse 3 - General Ulcer D/C NN Start: 06/26/20 08:13 Freq: Status: Active Protocol: Activity Type Activity Date Activity User E-Sign Co-Sign Detail Recorded Client Recorded Date Recorded By Document 06/26/20 09:12 GRADY [id number] 06/26/20 09:15 DL 06/26/20 09:12 Wound Care Nurse 3 [Wound Dressing] #2 Left heel -Ulcer Cleansing Rinsed/ Irrigated with Saline -Foul Odor after Cleansing No -Other Dressing Adaptic/ hydrogel -Primary Dressing Covered/Secured Dry Gauze & with Roll Gauze, Secured with Tape #1 Left Lateral LE -Ulcer Cleansing Wound Cleanser -Foul Odor after Cleansing No -Other Dressing Therakskin/ adaptic/steri strips -Primary Dressing Covered/Secured Dry Gauze & with Roll Gauze, Secured with Tape [Post Procedure Tolerated] -Treatment Response Procedure Tolerated Well Pain Scale: 0-10 Numeric [Pain] -Is Patient Pain Free? Yes - Visit Discharge [Visit Discharge Information] -Discharge Condition Stable -Ambulatory Status Ambulatory -Transportation Private Auto [Facility Notification] -Facility Type Home Health -Orders Sent Yes Musculoskeletal: No Tenderness to Palpation of Joints or Extremities Neurological: Cranial nerves II-XII grossly intact Psych/Mental Status: Normal Affect, Appropriate Debridement Note Post-Debridement Measurements/Treatment - Nurse 2 - General Ulcer CM Notes Start: 06/26/20 08:13 Freq: Status: Active Protocol: Activity Type Activity Date Activity User E-Sign Co-Sign Detail Recorded Client Recorded Date Recorded By Document 06/26/20 08:46 LADAN [id number] 03/01/21 08:57 JF 06/26/20 08:46 Wound Center Nurse 2 #2 Left heel -Time 08:46 -Correct Patient Yes -Correct Side, Site, Position Yes -Correct Procedure Yes -Procedure Performed Yes -Type of Procedure Debridement -Clinical Debridement Subcutaneous -Tissue Removed Subcutaneous -Post Debridement (cm) - Length 1.0 -Post Debridement (cm) - Width 0.5 -Post Debridement (cm) - Depth 0.2 -Total Square (Post) (cm) 0.50 -Area of Debridement (cm) - Length 1.0 -Area of Debridement (cm) - Width 0.5 -Total Square (Area) (cm) 0.50 -Tunneling No -Undermining/Tunneling No -Circular Undermining No -Wound/Ulcer Outcome Not Healed -Ulcer Cleansing Rinsed/ Irrigated with Saline -Foul Odor after Cleansing No -Bioengineered Tissue No -Bleeding Controlled with Pressure -Offloading No -Treatment Response Procedure Tolerated Well -Debridement - Subq, 1st 20sq cm Yes #1 Left Lateral LE -Time 08:46 -Correct Patient Yes -Correct Side, Site, Position Yes -Correct Procedure Yes -Procedure Performed Yes -Type of Procedure Debridement -Clinical Debridement Subcutaneous -Tissue Removed Subcutaneous -Post Debridement (cm) - Length 6.2 -Post Debridement (cm) - Width 5.8 -Post Debridement (cm) - Depth 0.1 -Total Square (Post) (cm) 35.96 -Area of Debridement (cm) - Length 6.2 -Area of Debridement (cm) - Width 5.8 -Total Square (Area) (cm) 35.96 -Tunneling No -Undermining/Tunneling No -Circular Undermining No -Wound/Ulcer Outcome Not Healed -Ulcer Cleansing Rinsed/ Irrigated with Saline -Foul Odor after Cleansing No -Bioengineered Tissue Yes -Type of Bioengineered Tissue Theraskin -Expiration Date 12/15/24 -Product Lot Number [id number] -Percent Used 100 -Lot number of Saline Used [id number] -Bleeding Controlled with Pressure -Offloading No -Treatment Response Procedure Tolerated Well -Debridement - Subq, 1st 20sq cm No -Apply Skin Sub - 1st 25 sq cm - Legs 1 -Apply Skin Sub - each addt'l 25 sq cm 1 - Legs -Theraskin (per sq cm) 39 Pain Scale: 0-10 Numeric Is Patient Pain Free? Yes - Nurse 3 - General Ulcer D/C NN Start: 06/26/20 08:13 Freq: Status: Active Protocol: Activity Type Activity Date Activity User E-Sign Co-Sign Detail Recorded Client Recorded Date Recorded By Document 06/26/20 09:12 DL [id number] 06/26/20 09:15 DL 06/26/20 09:12 Wound Care Nurse 3 #2 Left heel -Ulcer Cleansing Rinsed/ Irrigated with Saline -Foul Odor after Cleansing No -Other Dressing Adaptic/ hydrogel -Primary Dressing Covered/Secured with Dry Gauze & Roll Gauze, Secured with Tape #1 Left Lateral LE -Ulcer Cleansing Wound Cleanser -Foul Odor after Cleansing No -Other Dressing Therakskin/ adaptic/steri strips -Primary Dressing Covered/Secured with Dry Gauze & Roll Gauze, Secured with Tape Treatment Response Procedure Tolerated Well Pain Scale: 0-10 Numeric Is Patient Pain Free? Yes WC - Visit Discharge Discharge Condition Stable Ambulatory Status Ambulatory Transportation Private [facility] Facility Type Home Health Orders Sent Yes Wound debrided: Lateral leg ulcer Laterality: Left Type of Debridement: Excisional debridement Anesthesia Used: 5% Lidocaine Gel Depth: Down to and including healthy tissue, in the subcutaneous layer Percentage of wound debrided: 100 Instrument Used: 7mm curette Tissue Removed: Subcutaneous tissue and slough Severity: Fat Layer Exposed Amount of bleeding with debridement: Moderate - Increased bleeding, related to blood thinners. Was able to control with pressure. Bleeding Controlled with: Pressure, Compression and gauze Patient tolerated procedure well - Additional Wound Wound debrided: Posterior ankle/Achilles ulcer Laterality: Left Type of Debridement: Excisional debridement Anesthesia Used: 5% Lidocaine Gel Depth: Down to and including healthy tissue, in the subcutaneous layer Percentage of wound debrided: 100 Instrument Used: 3mm curette Tissue Removed: Subcutaneous tissue and slough Severity: Limited To Skin Breakdown Amount of bleeding with debridement: Mild - Decreased biofilm, obtained good bleeding this week. Bleeding Controlled with: Pressure Patient tolerated procedure: Patient tolerated procedure well Assessment/Plan Active Problems Diabetic ulcer of lower leg (Chronic) Ulcer of left lower extremity with muscle involvement without evidence of necrosis (Chronic) Former smoker (Chronic) Type 2 diabetes mellitus (Chronic) Assessment: 1. 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 2. Diabetes mellitus. 3. History of Streptococcal infection. 4. Former smoker. Plan: Wound care - Theraskin #4 placed on left lateral leg. 39 sq cm. 100 % of product used. It covered the entire ulcer. Left achilles ulcer Collagen hydrgel covered with adaptic daily left posterior leg ulcer, followed by double tubigrip for compression. Wound culture obtained 04/17/20 which was positive for Klebsiella oxytoca, Enterobacter cloacae complex, Streptococcus agalactiae (B), Enterococcus faecalis, Bacteroides fragilis group, Prevotella melaninogenica, and Anaerobic cocci. He was started on Levaquin, Augmentin and a probiotic, which he has completed. His operative culture showed Staphylococcus aureus. He was discharged on Keflex and has finished them. His Prealbumin from 03/10/20 was 9.1. Encourage nutritional supplementation with protein to help the healing process. Discussed further operative intervention with debridement and skin grafting using an autograft. He wants to try the advanced skin substitute grafts first. Patient would like to increase his activity with his job. He may go to sites but is not to be climbing ladders or standing one position for long periods of time. It is ok for him to be walking. Follow up 1 week. [id number]: 10246 Neelima subq tissue 20 sq cm/< - left posterior ankle/achilles ulcer 150xxx-152xx: 16270 Skin sub graft trnk/arm/leg - 59 modifier Add On Codes: 55001 Skin sub graft t/a/l add-on
[2020-07-03 08:31] VITALS: BP 164/92; PULSE 77; RESP 16; TEMP 35.9; BMI 33.8
--- NOTE | 2020-07-03 09:56 | PN.PCM_ITS ---
(1) Ulcer of left lower extremity with muscle involvement without evidence of necrosis Status: Chronic Code(s): L97.925 - Non-pressure chronic ulcer of unspecified part of left lower leg with muscle involvement without evidence of necrosis (2) Diabetic ulcer of lower leg Status: Chronic Code(s): E11.622 - Type 2 diabetes mellitus with other skin ulcer; L97.909 - Non-pressure chronic ulcer of unspecified part of unspecified lower leg with unspecified severity (3) Type 2 diabetes mellitus Status: Chronic Qualifiers: Code(s): E11.9 - Type 2 diabetes mellitus without complications (4) Former smoker Status: Chronic Code(s): Z87.891 - Personal history of nicotine dependence Type of Wound Date of Service: 07/03/20 Chief Complaint: Nonhealing diabetic abscess ulcer left lateral leg. History of Wound: Surgery 03/08/20 - Surgical preparation left lateral leg with incision and drainage and excisional debridement diabetic abscess (72 cm2). Wound care - Left lateral ulcer Theraskin #4 placed last week. Left achilles wound- collagen hydrogel covered by Adaptic. Wound culture obtained 04/17/20 which was positive for Klebsiella oxytoca, Enterobacter cloacae complex, Streptococcus agalactiae (B), Enterococcus faecalis, Bacteroides fragilis group, Prevotella melaninogenica, and Anaerobic cocci. He was started on Levaquin, Augmentin and a probiotic. Operative culture showed Staphylococcus aureus. He was discharged on Keflex and has finished them. Prealbumin on 03/10/20 was 9.1. Encouraged nutritional supplementation with protein to help the healing process. Today he denies fever. His appetite is good. Progress of Wound: Improved. - Physical Exam Vital Signs Temp Pulse Resp BP 96.7 F L 77 16 164/92 H 07/03/20 08:31 07/03/20 08:31 07/03/20 08:31 07/03/20 08:31 General: Alert, Oriented x3, Cooperative HEENT: Atraumatic Oral: Moist Mucosa Lungs: Normal air movement Cardiovascular: Regular rate Extremities: No edema, Capillary Refill Less than 3 Seconds Skin: Ulcer/ Wound - Left lateral leg ulcer with TheraSkin in place. Changed Steri-Strips and replaced Adaptic touch and secured with Steri-Strips. Left posterior ankle/Achilles ulcer has decreased in size. Wound Measurements and Assessment WC - Nurse 1 - General Ulcer Measurement Start: 06/26/20 08:13 Freq: Status: Active Protocol: Activity Type Activity Date Activity User E-Sign Co-Sign Detail Recorded Client Recorded Date Recorded By Document 07/03/20 08:31 [facility] [id number] 07/03/20 08:41 [facility] 07/03/20 08:31 Wound Center Nurse 1 [Ulcer Assessment] #2 Left heel -Combined with other wound No -Current Size (cm) - Length 0.4 -Current Size (cm) - Width 0.1 -Current Size (cm) - Depth 0.1 -Total Square Cm 0.04 -Photo Taken No -Epithelialization Medium 34-66% -Tunneling No -Undermining/Tunneling No -Circular Undermining No -Exudate Amt Small -Exudate Type Serosanguineous -Wound Margin Distinct, Outline Attached -Granulation Amt Small (1-33%) -Granulation Quality Red -Slough/Fibrin Yes -Necrosis Amt Medium (34-66%) -Necrotic Tissue Type Adherent Slough -Texture (Radha-wound Skin Appearance) Assessed, Scarring -Moisture (Radha-wound Skin Appearance Assessed,Dry/ ) Scaly -Color (Radha-wound Skin Appearance) Assessed -Temperature (Radha-wound Skin No Abnormality Appearance) (Pt Warm) -Tenderness on Palpation (Radha-wound No Skin Appearance) -Ulcer Cleansing soapy water -Foul Odor after Cleansing No -Anesthetic Used 5% Lidocaine Gel [Edema Assessment] -Lower Limb Edema Present Yes -Left Calf (cm) 40.9 -Left Ankle (cm) 24 - Nurse 2 - General Ulcer CM Notes Start: 06/26/20 08:13 Freq: Status: Active Protocol: Activity Type Activity Date Activity User E-Sign Co-Sign Detail Recorded Client Recorded Date Recorded By Document 07/03/20 08:57 [id number] 07/03/20 09:01 LADAN 07/03/20 08:57 Wound Center Nurse 2 [Procedure/Treatment] #2 Left heel -Time 08:57 -Correct Patient Yes -Correct Side, Site, Position Yes -Correct Procedure Yes -Procedure Performed Yes -Type of Procedure Debridement -Clinical Debridement Subcutaneous -Tissue Removed Subcutaneous -Post Debridement (cm) - Length 0.6 -Post Debridement (cm) - Width 0.5 -Post Debridement (cm) - Depth 0.1 -Total Square (Post) (cm) 0.30 -Area of Debridement (cm) - Length 0.6 -Area of Debridement (cm) - Width 0.5 -Total Square (Area) (cm) 0.30 -Tunneling No -Undermining/Tunneling No -Circular Undermining No -Wound/Ulcer Outcome Not Healed -Ulcer Cleansing Rinsed/ Irrigated with Saline -Foul Odor after Cleansing No -Bioengineered Tissue No -Bleeding Controlled with Pressure -Offloading No -Treatment Response Procedure Tolerated Well -Debridement - Subq, 1st 20sq cm Yes #1 Left Lateral LE -Correct Patient No -Correct Side, Site, Position No -Correct Procedure No -Procedure Performed No -Wound/Ulcer Outcome Not Healed [See Physician Procedure note for Specifics] Pain Scale: 0-10 Numeric [Pain] -Is Patient Pain Free? Yes - Nurse 3 - General Ulcer D/C NN Start: 06/26/20 08:13 Freq: Status: Active Protocol: Activity Type Activity Date Activity User E-Sign Co-Sign Detail Recorded Client Recorded Date Recorded By Document 07/03/20 09:04 [facility] [id number] 07/03/20 09:07 [facility] 07/03/20 09:04 Wound Care Nurse 3 [Wound Dressing] #2 Left heel -Ulcer Cleansing Rinsed/ Irrigated with Saline -Foul Odor after Cleansing No -Primary Dressing Applied Other -Other Dressing hydrogel -Primary Dressing Covered/Secured Dry Gauze & with Roll Gauze, Secured with Tape #1 Left Lateral LE -Primary Dressing Applied Other -Other Dressing theraskin -Primary Dressing Covered/Secured Dry Gauze & with Roll Gauze, Secured with Tape [Compression Applied] Left -Other applied pt's own tubigrip Pain Scale: 0-10 Numeric [Pain] -Is Patient Pain Free? Yes - Visit Discharge [Visit Discharge Information] -Discharge Condition Stable -Ambulatory Status Ambulatory -Transportation Private Auto Musculoskeletal: No Tenderness to Palpation of Joints or Extremities Neurological: Cranial nerves II-XII grossly intact Psych/Mental Status: Normal Affect, Appropriate Debridement Note Post-Debridement Measurements/Treatment WC - Nurse 2 - General Ulcer CM Notes Start: 06/26/20 08:13 Freq: Status: Active Protocol: Activity Type Activity Date Activity User E-Sign Co-Sign Detail Recorded Client Recorded Date Recorded By Document 06/26/20 08:46 [id number] 06/26/20 08:57 Document 07/03/20 08:57 [id number] 07/03/20 09:01 06/26/20 07/03/20 08:46 08:57 Wound Center Nurse 2 #2 Left heel -Time 08:46 08:57 -Correct Patient Yes Yes -Correct Side, Site, Position Yes Yes -Correct Procedure Yes Yes -Procedure Performed Yes Yes -Type of Procedure Debridement Debridement -Clinical Debridement Subcutaneous Subcutaneous -Tissue Removed Subcutaneous Subcutaneous -Post Debridement (cm) - Length 1.0 0.6 -Post Debridement (cm) - Width 0.5 0.5 -Post Debridement (cm) - Depth 0.2 0.1 -Total Square (Post) (cm) 0.50 0.30 -Area of Debridement (cm) - Length 1.0 0.6 -Area of Debridement (cm) - Width 0.5 0.5 -Total Square (Area) (cm) 0.50 0.30 -Tunneling No No -Undermining/Tunneling No No -Circular Undermining No No -Wound/Ulcer Outcome Not Healed Not Healed -Ulcer Cleansing Rinsed/ Rinsed/ Irrigated with Irrigated with Saline Saline -Foul Odor after Cleansing No No -Bioengineered Tissue No No -Bleeding Controlled with Pressure Pressure -Offloading No No -Treatment Response Procedure Procedure Tolerated Well Tolerated Well -Debridement - Subq, 1st 20sq cm Yes Yes #1 Left Lateral LE -Time 08:46 -Correct Patient Yes No -Correct Side, Site, Position Yes No -Correct Procedure Yes No -Procedure Performed Yes No -Type of Procedure Debridement -Clinical Debridement Subcutaneous -Tissue Removed Subcutaneous -Post Debridement (cm) - Length 6.2 -Post Debridement (cm) - Width 5.8 -Post Debridement (cm) - Depth 0.1 -Total Square (Post) (cm) 35.96 -Area of Debridement (cm) - Length 6.2 -Area of Debridement (cm) - Width 5.8 -Total Square (Area) (cm) 35.96 -Tunneling No -Undermining/Tunneling No -Circular Undermining No -Wound/Ulcer Outcome Not Healed Not Healed -Ulcer Cleansing Rinsed/ Irrigated with Saline -Foul Odor after Cleansing No -Bioengineered Tissue Yes -Type of Bioengineered Tissue Theraskin -Expiration Date 12/15/24 -Product Lot Number [id number] -Percent Used 100 -Lot number of Saline Used [id number] -Bleeding Controlled with Pressure -Offloading No -Treatment Response Procedure Tolerated Well -Debridement - Subq, 1st 20sq cm No -Apply Skin Sub - 1st 25 sq cm - Legs 1 -Apply Skin Sub - each addt'l 25 sq cm 1 - Legs -Theraskin (per sq cm) 39 Pain Scale: 0-10 Numeric Is Patient Pain Free? Yes Yes - Nurse 3 - General Ulcer D/C NN Start: 06/26/20 08:13 Freq: Status: Active Protocol: Activity Type Activity Date Activity User E-Sign Co-Sign Detail Recorded Client Recorded Date Recorded By Document 06/26/20 09:12 DL [id number] 06/26/20 09:15 DL Document 07/03/20 09:04 [facility] [id number] 07/03/20 09:07 [facility] 06/26/20 07/03/20 09:12 09:04 Wound Care Nurse 3 #2 Left heel -Ulcer Cleansing Rinsed/ Rinsed/ Irrigated with Irrigated with Saline Saline -Foul Odor after Cleansing No No -Primary Dressing Applied Other -Other Dressing Adaptic/ hydrogel hydrogel -Primary Dressing Covered/Secured with Dry Gauze & Dry Gauze & Roll Gauze, Roll Gauze, Secured with Secured with Tape Tape #1 Left Lateral LE -Ulcer Cleansing Wound Cleanser -Foul Odor after Cleansing No -Primary Dressing Applied Other -Other Dressing Therakskin/ theraskin adaptic/steri strips -Primary Dressing Covered/Secured with Dry Gauze & Dry Gauze & Roll Gauze, Roll Gauze, Secured with Secured with Tape Tape Left -Other applied pt's own tubigrip Treatment Response Procedure Tolerated Well Pain Scale: 0-10 Numeric Is Patient Pain Free? Yes Yes - Visit Discharge Discharge Condition Stable Stable Ambulatory Status Ambulatory Ambulatory Transportation Private Auto Private Auto Facility Type Home Health Orders Sent Yes Wound debrided: Posterior ankle/Achilles ulcer Laterality: Left Type of Debridement: Excisional debridement Anesthesia Used: 5% Lidocaine Gel Depth: Down to and including healthy tissue, in the subcutaneous layer Percentage of wound debrided: 100 Instrument Used: 3mm curette Tissue Removed: Subcutaneous tissue and slough Severity: Limited To Skin Breakdown Amount of bleeding with debridement: Mild Bleeding Controlled with: Pressure Patient tolerated procedure well Assessment/Plan Active Problems Diabetic ulcer of lower leg (Chronic) Ulcer of left lower extremity with muscle involvement without evidence of necrosis (Chronic) Former smoker (Chronic) Type 2 diabetes mellitus (Chronic) Assessment: 1. 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 2. Diabetes mellitus. 3. History of Streptococcal infection. 4. Former smoker. Plan: Wound care - Theraskin #4 placed on left lateral leg last week. 39 sq cm. 100 % of product used. It covered the entire ulcer. Today changed Steri-Strips that were holding the TheraSkin and repeat placed Adaptic touch. Secured Adaptic touch with Steri-Strips. Left achilles ulcer Collagen hydrgel covered with adaptic daily left posterior leg ulcer, followed by double tubigrip for compression. Wound culture obtained 04/17/20 which was positive for Klebsiella oxytoca, Enterobacter cloacae complex, Streptococcus agalactiae (B), Enterococcus faecalis, Bacteroides fragilis group, Prevotella melaninogenica, and Anaerobic cocci. He was started on Levaquin, Augmentin and a probiotic, which he has completed. His operative culture showed Staphylococcus aureus. He was discharged on Keflex and has finished them. His Prealbumin from 03/10/20 was 9.1. Encourage nutritional supplementation with protein to help the healing process. Discussed further operative intervention with debridement and skin grafting using an autograft. He wants to try the advanced skin substitute grafts first. Patient would like to increase his activity with his job. He may go to sites but is not to be climbing ladders or standing one position for long periods of time. It is ok for him to be walking. Follow up 1 week. [id number]: [id number] Neelima subq tissue 20 sq cm/<
[2020-07-10 08:31] VITALS: RESP 16; TEMP 35.3; BMI 33.8
--- NOTE | 2020-07-10 10:36 | PCM.WC.PN ---
(1) Ulcer of left lower extremity with muscle involvement without evidence of necrosis Status: Chronic Code(s): L97.925 - Non-pressure chronic ulcer of unspecified part of left lower leg with muscle involvement without evidence of necrosis (2) Diabetic ulcer of lower leg Status: Chronic Code(s): E11.622 - Type 2 diabetes mellitus with other skin ulcer; L97.909 - Non-pressure chronic ulcer of unspecified part of unspecified lower leg with unspecified severity (3) Type 2 diabetes mellitus Status: Chronic Qualifiers: Code(s): E11.9 - Type 2 diabetes mellitus without complications (4) Former smoker Status: Chronic Code(s): Z87.891 - Personal history of nicotine dependence Type of Wound Date of Service: 07/10/20 Chief Complaint: Nonhealing diabetic abscess ulcer left lateral leg. History of Wound: Surgery 03/08/20 - Surgical preparation left lateral leg with incision and drainage and excisional debridement diabetic abscess (72 cm2). Wound care - Left lateral ulcer Theraskin # placed today. Left achilles wound- collagen hydrogel covered by Adaptic. Wound culture obtained 04/17/20 which was positive for Klebsiella oxytoca, Enterobacter cloacae complex, Streptococcus agalactiae (B), Enterococcus faecalis, Bacteroides fragilis group, Prevotella melaninogenica, and Anaerobic cocci. He was started on Levaquin, Augmentin and a probiotic. Operative culture showed Staphylococcus aureus. He was discharged on Keflex and has finished them. Prealbumin on 03/10/20 was 9.1. Encouraged nutritional supplementation with protein to help the healing process. Today he denies fever. His appetite is good. Progress of Wound: Improved. - Physical Exam Vital Signs Temp Pulse Resp BP 95.5 F L 77 16 164/92 H 07/10/20 08:31 07/03/20 08:31 07/10/20 08:31 07/03/20 08:31 General: Alert, Oriented x3, Cooperative HEENT: Atraumatic Oral: Moist Mucosa Lungs: Normal air movement Cardiovascular: Regular rate Extremities: No edema, Capillary Refill Less than 3 Seconds Skin: Ulcer/ Wound - Left lateral leg ulcer is beefy pink and decreasing in size. Wound Measurements and Assessment WC - Nurse 1 - General Ulcer Measurement Start: 06/26/20 08:13 Freq: Status: Active Protocol: Activity Type Activity Date Activity User E-Sign Co-Sign Detail Recorded Client Recorded Date Recorded By Document 07/10/20 08:31 [facility] [id number] 07/10/20 08:37 [facility] 07/10/20 08:31 Wound Center Nurse 1 [Ulcer Assessment] #2 Left heel -Combined with other wound No -Current Size (cm) - Length 0.1 -Current Size (cm) - Width 0.1 -Current Size (cm) - Depth 0.1 -Total Square Cm 0.01 -Epithelialization Large 67-100% #1 Left Lateral LE -Combined with other wound No -Current Size (cm) - Length 5.6 -Current Size (cm) - Width 5.6 -Current Size (cm) - Depth 0.1 -Total Square Cm 31.36 -Photo Taken No -Epithelialization Small 1-33% -Tunneling No -Undermining/Tunneling No -Circular Undermining No -Exudate Amt Medium -Exudate Type Serosanguineous -Wound Margin Distinct, Outline Attached -Granulation Amt Large (67-100%) -Granulation Quality Hyper- granulation,Red -Slough/Fibrin Yes -Necrosis Amt Small (1-33%) -Necrotic Tissue Type Adherent Slough -Texture (Radha-wound Skin Appearance) Assessed, Scarring -Moisture (Radha-wound Skin Appearance Assessed,Dry/ ) Scaly -Color (Radha-wound Skin Appearance) Assessed -Temperature (Radha-wound Skin No Abnormality Appearance) (Pt Warm) -Tenderness on Palpation (Radha-wound No Skin Appearance) -Ulcer Cleansing soapy water -Foul Odor after Cleansing No -Anesthetic Used 4% Lidocaine Solution [Edema Assessment] -Lower Limb Edema Present Yes -Left Calf (cm) 41.8 -Left Ankle (cm) 23 - Nurse 2 - General Ulcer CM Notes Start: 06/26/20 08:13 Freq: Status: Active Protocol: Activity Type Activity Date Activity User E-Sign Co-Sign Detail Recorded Client Recorded Date Recorded By Document 07/10/20 08:57 [id number] 07/10/20 09:15 07/10/20 08:57 Wound Center Nurse 2 [Procedure/Treatment] #2 Left heel -Time 09:04 -Correct Patient Yes -Correct Side, Site, Position Yes -Correct Procedure Yes -Procedure Performed Yes -Type of Procedure Debridement -Clinical Debridement Subcutaneous -Tissue Removed Subcutaneous -Post Debridement (cm) - Length 1.2 -Post Debridement (cm) - Width 0.3 -Post Debridement (cm) - Depth 0.1 -Total Square (Post) (cm) 0.36 -Area of Debridement (cm) - Length 1.2 -Area of Debridement (cm) - Width 0.3 -Total Square (Area) (cm) 0.36 -Tunneling No -Undermining/Tunneling No -Circular Undermining No -Wound/Ulcer Outcome Not Healed -Ulcer Cleansing Rinsed/ Irrigated with Saline -Foul Odor after Cleansing No -Bioengineered Tissue No -Bleeding Controlled with Pressure -Offloading No -Treatment Response Procedure Tolerated Well -Debridement - Subq, 1st 20sq cm Yes #1 Left Lateral LE -Time 09:06 -Correct Patient Yes -Correct Side, Site, Position Yes -Correct Procedure Yes -Procedure Performed Yes -Type of Procedure Debridement -Clinical Debridement Subcutaneous -Tissue Removed Subcutaneous -Post Debridement (cm) - Length 5.7 -Post Debridement (cm) - Width 4.9 -Post Debridement (cm) - Depth 0.1 -Total Square (Post) (cm) 27.93 -Area of Debridement (cm) - Length 5.7 -Area of Debridement (cm) - Width 4.9 -Total Square (Area) (cm) 27.93 -Tunneling No -Undermining/Tunneling No -Circular Undermining No -Wound/Ulcer Outcome Not Healed -Ulcer Cleansing Rinsed/ Irrigated with Saline -Foul Odor after Cleansing No -Bioengineered Tissue Yes -Type of Bioengineered Tissue Theraskin -Expiration Date 06/21/24 -Product Lot Number [id number] -Percent Used 100 -Lot number of Saline Used [id number] -Bleeding Controlled with Pressure -Offloading No -Treatment Response Procedure Tolerated Well -Debridement - Subq, 1st 20sq cm No -Apply Skin Sub - 1st 25 sq cm - Legs 1 -Apply Skin Sub - each addt'l 25 sq 1 cm - Legs -Theraskin (per sq cm) 26 [See Physician Procedure note for Specifics] Pain Scale: 0-10 Numeric [Pain] -Is Patient Pain Free? Yes WC - Nurse 3 - General Ulcer D/C NN Start: 06/26/20 08:13 Freq: Status: Active Protocol: Activity Type Activity Date Activity User E-Sign Co-Sign Detail Recorded Client Recorded Date Recorded By Document 07/10/20 09:30 [facility] [id number] 07/10/20 09:31 [facility] 07/10/20 09:30 Wound Care Nurse 3 [Wound Dressing] #2 Left heel -Ulcer Cleansing Rinsed/ Irrigated with Saline -Foul Odor after Cleansing No -Primary Dressing Applied Other -Other Dressing hydrogel -Primary Dressing Covered/Secured Dry Gauze, with Secured with Tape #1 Left Lateral LE -Other Dressing theraskin -Primary Dressing Covered/Secured Dry Gauze, with Secured with Tape,Other -Other Covering abd [Compression Applied] Left -Tubular Bandage Double Layer -Size of Tubigrip Used Size E -Size E ($) 2 [Post Procedure Tolerated] -Treatment Response Procedure Tolerated Well Pain Scale: 0-10 Numeric [Pain] -Is Patient Pain Free? Yes - Visit Discharge [Visit Discharge Information] -Discharge Condition Stable -Ambulatory Status Ambulatory -Transportation Private Auto Musculoskeletal: No Tenderness to Palpation of Joints or Extremities Neurological: Cranial nerves II-XII grossly intact Psych/Mental Status: Normal Affect, Appropriate Debridement Note Post-Debridement Measurements/Treatment - Nurse 2 - General Ulcer CM Notes Start: 06/26/20 08:13 Freq: Status: Active Protocol: Activity Type Activity Date Activity User E-Sign Co-Sign Detail Recorded Client Recorded Date Recorded By Document 06/26/20 08:46 [id number] 06/26/20 08:57 Document 07/03/20 08:57 [id number] 07/03/20 09:01 Document 07/10/20 08:57 [id number] 07/10/20 09:15 06/26/20 07/03/20 07/10/20 08:46 08:57 08:57 Wound Center Nurse 2 #2 Left heel -Time 08:46 08:57 09:04 -Correct Patient Yes Yes Yes -Correct Side, Site, Position Yes Yes Yes -Correct Procedure Yes Yes Yes -Procedure Performed Yes Yes Yes -Type of Procedure Debridement Debridement Debridement -Clinical Debridement Subcutaneous Subcutaneous Subcutaneous -Tissue Removed Subcutaneous Subcutaneous Subcutaneous -Post Debridement (cm) - Length 1.0 0.6 1.2 -Post Debridement (cm) - Width 0.5 0.5 0.3 -Post Debridement (cm) - Depth 0.2 0.1 0.1 -Total Square (Post) (cm) 0.50 0.30 0.36 -Area of Debridement (cm) - Length 1.0 0.6 1.2 -Area of Debridement (cm) - Width 0.5 0.5 0.3 -Total Square (Area) (cm) 0.50 0.30 0.36 -Tunneling No No No -Undermining/Tunneling No No No -Circular Undermining No No No -Wound/Ulcer Outcome Not Healed Not Healed Not Healed -Ulcer Cleansing Rinsed/ Rinsed/ Rinsed/ Irrigated with Irrigated with Irrigated with Saline Saline Saline -Foul Odor after Cleansing No No No -Bioengineered Tissue No No No -Bleeding Controlled with Pressure Pressure Pressure -Offloading No No No -Treatment Response Procedure Procedure Procedure Tolerated Well Tolerated Well Tolerated Well -Debridement - Subq, 1st 20sq cm Yes Yes Yes #1 Left Lateral LE -Time 08:46 09:06 -Correct Patient Yes No Yes -Correct Side, Site, Position Yes No Yes -Correct Procedure Yes No Yes -Procedure Performed Yes No Yes -Type of Procedure Debridement Debridement -Clinical Debridement Subcutaneous Subcutaneous -Tissue Removed Subcutaneous Subcutaneous -Post Debridement (cm) - Length 6.2 5.7 -Post Debridement (cm) - Width 5.8 4.9 -Post Debridement (cm) - Depth 0.1 0.1 -Total Square (Post) (cm) 35.96 27.93 -Area of Debridement (cm) - Length 6.2 5.7 -Area of Debridement (cm) - Width 5.8 4.9 -Total Square (Area) (cm) 35.96 27.93 -Tunneling No No -Undermining/Tunneling No No -Circular Undermining No No -Wound/Ulcer Outcome Not Healed Not Healed Not Healed -Ulcer Cleansing Rinsed/ Rinsed/ Irrigated with Irrigated with Saline Saline -Foul Odor after Cleansing No No -Bioengineered Tissue Yes Yes -Type of Bioengineered Tissue Theraskin Theraskin -Expiration Date 12/15/24 06/21/24 -Product Lot Number [id number] -Percent Used 100 100 -Lot number of Saline Used [id number] -Bleeding Controlled with Pressure Pressure -Offloading No No -Treatment Response Procedure Procedure Tolerated Well Tolerated Well -Debridement - Subq, 1st 20sq cm No No -Apply Skin Sub - 1st 25 sq cm - Legs 1 1 -Apply Skin Sub - each addt'l 25 sq cm 1 1 - Legs -Theraskin (per sq cm) 39 26 Pain Scale: 0-10 Numeric Is Patient Pain Free? Yes Yes Yes - Nurse 3 - General Ulcer D/C NN Start: 06/26/20 08:13 Freq: Status: Active Protocol: Activity Type Activity Date Activity User E-Sign Co-Sign Detail Recorded Client Recorded Date Recorded By Document 06/26/20 09:12 DL [id number] 06/26/20 09:15 DL Document 07/03/20 09:04 [facility] [id number] 07/03/20 09:07 BMF Document 07/10/20 09:30 [facility] [id number] 07/10/20 09:31 [facility] 06/26/20 07/03/20 07/10/20 09:12 09:04 09:30 Wound Care Nurse 3 #2 Left heel -Ulcer Cleansing Rinsed/ Rinsed/ Rinsed/ Irrigated with Irrigated with Irrigated with Saline Saline Saline -Foul Odor after Cleansing No No No -Primary Dressing Applied Other Other -Other Dressing Adaptic/ hydrogel hydrogel hydrogel -Primary Dressing Covered/Secured with Dry Gauze & Dry Gauze & Dry Gauze, Roll Gauze, Roll Gauze, Secured with Secured with Secured with Tape Tape Tape #1 Left Lateral LE -Ulcer Cleansing Wound Cleanser -Foul Odor after Cleansing No -Primary Dressing Applied Other -Other Dressing [place]kin/ theraskin theraskin adaptic/steri strips -Primary Dressing Covered/Secured with Dry Gauze & Dry Gauze & Dry Gauze, Roll Gauze, Roll Gauze, Secured with Secured with Secured with Tape,Other Tape Tape -Other Covering abd Left -Tubular Bandage Double Layer -Size of Tubigrip Used Size E -Size E ($) 2 -Other applied pt's own tubigrip Treatment Response Procedure Procedure Tolerated Well Tolerated Well Pain Scale: 0-10 Numeric Is Patient Pain Free? Yes Yes Yes - Visit Discharge Discharge Condition Stable Stable Stable Ambulatory Status Ambulatory Ambulatory Ambulatory Transportation Private Auto Private Auto Private Auto Facility Type Home Health Orders Sent Yes Wound debrided: Lateral leg ulcer Laterality: Left Type of Debridement: Excisional debridement Anesthesia Used: 5% Lidocaine Gel Depth: Down to and including healthy tissue, in the subcutaneous layer Percentage of wound debrided: 100 Instrument Used: 7mm curette Tissue Removed: Subcutaneous tissue and slough Severity: Fat Layer Exposed Amount of bleeding with debridement: Mild Bleeding Controlled with: Pressure Patient tolerated procedure well Assessment/Plan Active Problems Diabetic ulcer of lower leg (Chronic) Ulcer of left lower extremity with muscle involvement without evidence of necrosis (Chronic) Former smoker (Chronic) Type 2 diabetes mellitus (Chronic) Assessment: 1. 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 2. Diabetes mellitus. 3. History of Streptococcal infection. 4. Former smoker. Plan: Wound care - Theraskin #5 placed on left lateral leg today. 26 sq cm. 100 % of product used. It covered the entire ulcer. Expiration date 06/21/24 and Product Lot Number [id number]. The TheraSkin was secured with Dermabond and Steri-Strips. Stopped with Adaptic touch which was secured with Steri-Strips. Left achilles ulcer Collagen hydrgel covered with adaptic daily left posterior leg ulcer, followed by double tubigrip for compression. Wound culture obtained 04/17/20 which was positive for Klebsiella oxytoca, Enterobacter cloacae complex, Streptococcus agalactiae (B), Enterococcus faecalis, Bacteroides fragilis group, Prevotella melaninogenica, and Anaerobic cocci. He was started on Levaquin, Augmentin and a probiotic, which he has completed. His operative culture showed Staphylococcus aureus. He was discharged on Keflex and has finished them. His Prealbumin from 03/10/20 was 9.1. Encourage nutritional supplementation with protein to help the healing process. Discussed further operative intervention with debridement and skin grafting using an autograft. He wants to try the advanced skin substitute grafts first. Patient would like to increase his activity with his job. He may go to sites but is not to be climbing ladders or standing one position for long periods of time. It is ok for him to be walking. Follow up 1 week. [id number]: [id number] Neelima subq tissue 20 sq cm/< - left achilles/posterior ulcer 150xxx-152xx: 25804 Skin sub graft trnk/arm/leg - left lateral leg ulcer Add On Codes: 64720 Skin sub graft t/a/l add-on - 59 modifier- left lateral leg ulcer
[2020-07-17 08:32] VITALS: BP 148/93; PULSE 73; RESP 16; TEMP 35.6; BMI 33.8
--- NOTE | 2020-07-17 08:36 | WC ---
ADI LLE LEFT INTACT PER CM INSTRUCTION
--- NOTE | 2020-07-17 11:53 | PCM.WC.PN ---
(1) Ulcer of left lower extremity with muscle involvement without evidence of necrosis Status: Chronic Code(s): L97.925 - Non-pressure chronic ulcer of unspecified part of left lower leg with muscle involvement without evidence of necrosis (2) Diabetic ulcer of lower leg Status: Chronic Code(s): E11.622 - Type 2 diabetes mellitus with other skin ulcer; L97.909 - Non-pressure chronic ulcer of unspecified part of unspecified lower leg with unspecified severity (3) Type 2 diabetes mellitus Status: Chronic Qualifiers: Code(s): E11.9 - Type 2 diabetes mellitus without complications (4) Former smoker Status: Chronic Code(s): Z87.891 - Personal history of nicotine dependence Type of Wound Date of Service: 07/17/20 Chief Complaint: Nonhealing diabetic abscess ulcer left lateral leg. History of Wound: Surgery 03/08/20 - Surgical preparation left lateral leg with incision and drainage and excisional debridement diabetic abscess (72 cm2). Wound care - Left lateral ulcer Theraskin #5 placed last week. Left achilles wound- collagen hydrogel covered by Adaptic. Wound culture obtained 04/17/20 which was positive for Klebsiella oxytoca, Enterobacter cloacae complex, Streptococcus agalactiae (B), Enterococcus faecalis, Bacteroides fragilis group, Prevotella melaninogenica, and Anaerobic cocci. He was started on Levaquin, Augmentin and a probiotic. Operative culture showed Staphylococcus aureus. He was discharged on Keflex and has finished them. Prealbumin on 03/10/20 was 9.1. Encouraged nutritional supplementation with protein to help the healing process. Today he denies fever. His appetite is good. Progress of Wound: Improved. - Physical Exam Vital Signs Temp Pulse Resp BP 96.1 F L 73 16 148/93 H 07/17/20 08:32 07/17/20 08:32 07/17/20 08:32 07/17/20 08:32 General: Alert, Oriented x3, Cooperative HEENT: Atraumatic Oral: Moist Mucosa Lungs: Normal air movement Cardiovascular: Regular rate Extremities: No edema, Capillary Refill Less than 3 Seconds Skin: Ulcer/ Wound - Left lateral lower leg has TheraSkin in place. Adaptic wound veil changed. Secured with Steri-Strips. Left posterior ankle/Achilles ulcer cluster is decreasing in size. Some most healed. Wound Measurements and Assessment WC - Nurse 1 - General Ulcer Measurement Start: 06/26/20 08:13 Freq: Status: Active Protocol: Activity Type Activity Date Activity User E-Sign Co-Sign Detail Recorded Client Recorded Date Recorded By Document 07/17/20 08:32 [facility] [id number] 07/17/20 08:35 [facility] 07/17/20 08:32 Wound Center Nurse 1 [Ulcer Assessment] #2 Left heel -Combined with other wound No -Current Size (cm) - Length 0.1 -Current Size (cm) - Width 0.1 -Current Size (cm) - Depth 0.1 -Total Square Cm 0.01 -Epithelialization Large 67-100% -Exudate Amt None Present -Texture (Radha-wound Skin Appearance) Assessed, Scarring -Moisture (Radha-wound Skin Appearance Assessed,Dry/ ) Scaly -Color (Radha-wound Skin Appearance) Assessed -Temperature (Radha-wound Skin No Abnormality Appearance) (Pt Warm) -Tenderness on Palpation (Radha-wound No Skin Appearance) -Ulcer Cleansing SOAPY WATER -Foul Odor after Cleansing No #1 Left Lateral LE -Combined with other wound No -Current Size (cm) - Length 0.1 -Current Size (cm) - Width 0.1 -Current Size (cm) - Depth 0.1 -Total Square Cm 0.01 [Edema Assessment] -Lower Limb Edema Present Yes -Left Calf (cm) 41.7 -Left Ankle (cm) 23.5 - Nurse 2 - General Ulcer CM Notes Start: 06/26/20 08:13 Freq: Status: Active Protocol: Activity Type Activity Date Activity User E-Sign Co-Sign Detail Recorded Client Recorded Date Recorded By Document 07/17/20 08:52 [id number] 07/17/20 08:56 LADAN 07/17/20 08:52 Wound Center Nurse 2 [Procedure/Treatment] #2 Left heel -Time 08:54 -Correct Patient Yes -Correct Side, Site, Position Yes -Correct Procedure Yes -Procedure Performed Yes -Type of Procedure Debridement -Clinical Debridement Subcutaneous -Tissue Removed Subcutaneous -Post Debridement (cm) - Length 1.7 -Post Debridement (cm) - Width 0.4 -Post Debridement (cm) - Depth 0.1 -Total Square (Post) (cm) 0.68 -Area of Debridement (cm) - Length 1.7 -Area of Debridement (cm) - Width 0.4 -Total Square (Area) (cm) 0.68 -Tunneling No -Undermining/Tunneling No -Circular Undermining No -Wound/Ulcer Outcome Not Healed -Ulcer Cleansing Rinsed/ Irrigated with Saline -Foul Odor after Cleansing No -Bioengineered Tissue No -Bleeding Controlled with Pressure -Offloading No -Treatment Response Procedure Tolerated Well -Debridement - Subq, 1st 20sq cm Yes #1 Left Lateral LE -Correct Patient No -Correct Side, Site, Position No -Correct Procedure No -Procedure Performed No -Tunneling No -Undermining/Tunneling No -Circular Undermining No -Wound/Ulcer Outcome Not Healed -Ulcer Cleansing Rinsed/ Irrigated with Saline -Foul Odor after Cleansing No -Bioengineered Tissue No -Bleeding Controlled with Pressure -Offloading No -Treatment Response Procedure Tolerated Well -Debridement - Subq, 1st 20sq cm No [See Physician Procedure note for Specifics] Pain Scale: 0-10 Numeric [Pain] -Is Patient Pain Free? Yes - Nurse 3 - General Ulcer D/C NN Start: 06/26/20 08:13 Freq: Status: Active Protocol: Activity Type Activity Date Activity User E-Sign Co-Sign Detail Recorded Client Recorded Date Recorded By Document 07/17/20 09:06 [facility] [id number] 07/17/20 09:07 [facility] 07/17/20 09:06 Wound Care Nurse 3 [Wound Dressing] #2 Left heel -Ulcer Cleansing Rinsed/ Irrigated with Saline -Foul Odor after Cleansing No -Primary Dressing Applied Other -Other Dressing HYDROGEL -Primary Dressing Covered/Secured Dry Gauze, with Secured with Tape #1 Left Lateral LE -Other Dressing THERASKIN -Primary Dressing Covered/Secured Secured with with Tape,Other -Other Covering ABD; DRSGS PER D FARTUN OPERATING ENGINEER APPRENTICE [Compression Applied] Left -Other APPLIED PTS OWN TUBI, DOUBLE LAYER Pain Scale: 0-10 Numeric [Pain] -Is Patient Pain Free? Yes - Visit Discharge [Visit Discharge Information] -Discharge Condition Stable -Ambulatory Status Ambulatory -Transportation Private Auto Musculoskeletal: No Tenderness to Palpation of Joints or Extremities Neurological: Cranial nerves II-XII grossly intact Psych/Mental Status: Normal Affect, Appropriate Debridement Note Post-Debridement Measurements/Treatment - Nurse 2 - General Ulcer CM Notes Start: 06/26/20 08:13 Freq: Status: Active Protocol: Activity Type Activity Date Activity User E-Sign Co-Sign Detail Recorded Client Recorded Date Recorded By Document 06/26/20 08:46 [id number] 06/26/20 08:57 JF Document 07/03/20 08:57 JF [id number] 07/03/20 09:01 JF Document 07/10/20 08:57 JF [id number] 07/10/20 09:15 JF Document 07/17/20 08:52 [id number] 07/17/20 08:56 JF 06/26/20 07/03/20 07/10/20 08:46 08:57 08:57 Wound Center Nurse 2 #2 Left heel -Time 08:46 08:57 09:04 -Correct Patient Yes Yes Yes -Correct Side, Site, Position Yes Yes Yes -Correct Procedure Yes Yes Yes -Procedure Performed Yes Yes Yes -Type of Procedure Debridement Debridement Debridement -Clinical Debridement Subcutaneous Subcutaneous Subcutaneous -Tissue Removed Subcutaneous Subcutaneous Subcutaneous -Post Debridement (cm) - Length 1.0 0.6 1.2 -Post Debridement (cm) - Width 0.5 0.5 0.3 -Post Debridement (cm) - Depth 0.2 0.1 0.1 -Total Square (Post) (cm) 0.50 0.30 0.36 -Area of Debridement (cm) - Length 1.0 0.6 1.2 -Area of Debridement (cm) - Width 0.5 0.5 0.3 -Total Square (Area) (cm) 0.50 0.30 0.36 -Tunneling No No No -Undermining/Tunneling No No No -Circular Undermining No No No -Wound/Ulcer Outcome Not Healed Not Healed Not Healed -Ulcer Cleansing Rinsed/ Rinsed/ Rinsed/ Irrigated with Irrigated with Irrigated with Saline Saline Saline -Foul Odor after Cleansing No No No -Bioengineered Tissue No No No -Bleeding Controlled with Pressure Pressure Pressure -Offloading No No No -Treatment Response Procedure Procedure Procedure Tolerated Well Tolerated Well Tolerated Well -Debridement - Subq, 1st 20sq cm Yes Yes Yes #1 Left Lateral LE -Time 08:46 09:06 -Correct Patient Yes No Yes -Correct Side, Site, Position Yes No Yes -Correct Procedure Yes No Yes -Procedure Performed Yes No Yes -Type of Procedure Debridement Debridement -Clinical Debridement Subcutaneous Subcutaneous -Tissue Removed Subcutaneous Subcutaneous -Post Debridement (cm) - Length 6.2 5.7 -Post Debridement (cm) - Width 5.8 4.9 -Post Debridement (cm) - Depth 0.1 0.1 -Total Square (Post) (cm) 35.96 27.93 -Area of Debridement (cm) - Length 6.2 5.7 -Area of Debridement (cm) - Width 5.8 4.9 -Total Square (Area) (cm) 35.96 27.93 -Tunneling No No -Undermining/Tunneling No No -Circular Undermining No No -Wound/Ulcer Outcome Not Healed Not Healed Not Healed -Ulcer Cleansing Rinsed/ Rinsed/ Irrigated with Irrigated with Saline Saline -Foul Odor after Cleansing No No -Bioengineered Tissue Yes Yes -Type of Bioengineered Tissue Theraskin Theraskin -Expiration Date 12/15/24 06/21/24 -Product Lot Number [id number] -Percent Used 100 100 -Lot number of Saline Used [id number] -Bleeding Controlled with Pressure Pressure -Offloading No No -Treatment Response Procedure Procedure Tolerated Well Tolerated Well -Debridement - Subq, 1st 20sq cm No No -Apply Skin Sub - 1st 25 sq cm - Legs 1 1 -Apply Skin Sub - each addt'l 25 sq cm 1 1 - Legs -Theraskin (per sq cm) 39 26 Pain Scale: 0-10 Numeric Is Patient Pain Free? Yes Yes Yes 07/17/20 08:52 Wound Center Nurse 2 #2 Left heel -Time 08:54 -Correct Patient Yes -Correct Side, Site, Position Yes -Correct Procedure Yes -Procedure Performed Yes -Type of Procedure Debridement -Clinical Debridement Subcutaneous -Tissue Removed Subcutaneous -Post Debridement (cm) - Length 1.7 -Post Debridement (cm) - Width 0.4 -Post Debridement (cm) - Depth 0.1 -Total Square (Post) (cm) 0.68 -Area of Debridement (cm) - Length 1.7 -Area of Debridement (cm) - Width 0.4 -Total Square (Area) (cm) 0.68 -Tunneling No -Undermining/Tunneling No -Circular Undermining No -Wound/Ulcer Outcome Not Healed -Ulcer Cleansing Rinsed/ Irrigated with Saline -Foul Odor after Cleansing No -Bioengineered Tissue No -Bleeding Controlled with Pressure -Offloading No -Treatment Response Procedure Tolerated Well -Debridement - Subq, 1st 20sq cm Yes #1 Left Lateral LE -Time -Correct Patient No -Correct Side, Site, Position No -Correct Procedure No -Procedure Performed No -Type of Procedure -Clinical Debridement -Tissue Removed -Post Debridement (cm) - Length -Post Debridement (cm) - Width -Post Debridement (cm) - Depth -Total Square (Post) (cm) -Area of Debridement (cm) - Length -Area of Debridement (cm) - Width -Total Square (Area) (cm) -Tunneling No -Undermining/Tunneling No -Circular Undermining No -Wound/Ulcer Outcome Not Healed -Ulcer Cleansing Rinsed/ Irrigated with Saline -Foul Odor after Cleansing No -Bioengineered Tissue No -Type of Bioengineered Tissue -Expiration Date -Product Lot Number -Percent Used -Lot number of Saline Used -Bleeding Controlled with Pressure -Offloading No -Treatment Response Procedure Tolerated Well -Debridement - Subq, 1st 20sq cm No -Apply Skin Sub - 1st 25 sq cm - Legs -Apply Skin Sub - each addt'l 25 sq cm - Legs -Theraskin (per sq cm) Pain Scale: 0-10 Numeric Is Patient Pain Free? Yes WC - Nurse 3 - General Ulcer D/C NN Start: 06/26/20 08:13 Freq: Status: Active Protocol: Activity Type Activity Date Activity User E-Sign Co-Sign Detail Recorded Client Recorded Date Recorded By Document 06/26/20 09:12 DL [id number] 06/26/20 09:15 DL Document 07/03/20 09:04 [facility] [id number] 07/03/20 09:07 BMF Document 07/10/20 09:30 BM [id number] 07/10/20 09:31 BMF Document 07/17/20 09:06 BMF [id number] 07/17/20 09:07 BMF 06/26/20 07/03/20 07/10/20 09:12 09:04 09:30 Wound Care Nurse 3 #2 Left heel -Ulcer Cleansing Rinsed/ Rinsed/ Rinsed/ Irrigated with Irrigated with Irrigated with Saline Saline Saline -Foul Odor after Cleansing No No No -Primary Dressing Applied Other Other -Other Dressing Adaptic/ hydrogel hydrogel hydrogel -Primary Dressing Covered/Secured with Dry Gauze & Dry Gauze & Dry Gauze, Roll Gauze, Roll Gauze, Secured with Secured with Secured with Tape Tape Tape #1 Left Lateral LE -Ulcer Cleansing Wound Cleanser -Foul Odor after Cleansing No -Primary Dressing Applied Other -Other Dressing Therakskin/ theraskin theraskin adaptic/steri strips -Primary Dressing Covered/Secured with Dry Gauze & Dry Gauze & Dry Gauze, Roll Gauze, Roll Gauze, Secured with Secured with Secured with Tape,Other Tape Tape -Other Covering abd Left -Tubular Bandage Double Layer -Size of Tubigrip Used Size E -Size E ($) 2 -Other applied pt's own tubigrip Treatment Response Procedure Procedure Tolerated Well Tolerated Well Pain Scale: 0-10 Numeric Is Patient Pain Free? Yes Yes Yes WC - Visit Discharge Discharge Condition Stable Stable Stable Ambulatory Status Ambulatory Ambulatory Ambulatory Transportation Private Auto [facility] Auto [facility] Auto Facility Type Home Health Orders Sent Yes 07/17/20 09:06 Wound Care Nurse 3 #2 Left heel -Ulcer Cleansing Rinsed/ Irrigated with Saline -Foul Odor after Cleansing No -Primary Dressing Applied Other -Other Dressing HYDROGEL -Primary Dressing Covered/Secured with Dry Gauze, Secured with Tape #1 Left Lateral LE -Ulcer Cleansing -Foul Odor after Cleansing -Primary Dressing Applied -Other Dressing THERASKIN -Primary Dressing Covered/Secured with Secured with Tape,Other -Other Covering ABD; DRSGS PER D FARTUN OPERATING ENGINEER APPRENTICE Left -Tubular Bandage -Size of Tubigrip Used -Size E ($) -Other APPLIED PTS OWN TUBI, DOUBLE LAYER Treatment Response Pain Scale: 0-10 Numeric Is Patient Pain Free? Yes WC - Visit Discharge Discharge Condition Stable Ambulatory Status Ambulatory Transportation Private Auto Facility Type Orders Sent Wound debrided: Posterior ankle/Achilles Laterality: Left Type of Debridement: Excisional debridement Anesthesia Used: 5% Lidocaine Gel Depth: Down to and including healthy tissue, in the subcutaneous layer Percentage of wound debrided: 100 Instrument Used: 3mm curette Tissue Removed: Subcutaneous tissue and slough Severity: Limited To Skin Breakdown Amount of bleeding with debridement: Mild Bleeding Controlled with: Pressure Patient tolerated procedure well - Additional Wound Wound debrided: Lateral leg ulcer not debrided today Laterality: Left Assessment/Plan Active Problems Diabetic ulcer of lower leg (Chronic) Ulcer of left lower extremity with muscle involvement without evidence of necrosis (Chronic) Former smoker (Chronic) Type 2 diabetes mellitus (Chronic) Assessment: 1. 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 2. Diabetes mellitus. 3. History of Streptococcal infection. 4. Former smoker. Plan: Wound care - Theraskin #5 placed on left lateral leg last week. Wound veil changed and secured with Steri-Strips. Left achilles ulcer cluster will place collagen hydrgel covered with adaptic daily left posterior leg ulcer, followed by double tubigrip for compression. Wound culture obtained 04/17/20 which was positive for Klebsiella oxytoca, Enterobacter cloacae complex, Streptococcus agalactiae (B), Enterococcus faecalis, Bacteroides fragilis group, Prevotella melaninogenica, and Anaerobic cocci. He was started on Levaquin, Augmentin and a probiotic, which he has completed. His operative culture showed Staphylococcus aureus. He was discharged on Keflex and has finished them. His Prealbumin from 03/10/20 was 9.1. Encourage nutritional supplementation with protein to help the healing process. Discussed further operative intervention with debridement and skin grafting using an autograft. He wants to try the advanced skin substitute grafts first. Patient would like to increase his activity with his job. He may go to sites but is not to be climbing ladders or standing one position for long periods of time. It is ok for him to be walking. Follow up 1 week. [id number]: [id number] Neelima subq tissue 20 sq cm/<
[2020-07-24 08:35] VITALS: BP 176/93; PULSE 69; RESP 16; TEMP 35.5; BMI 33.8
--- NOTE | 2020-07-24 11:29 | PN.PCM_ITS ---
(1) Ulcer of left lower extremity with muscle involvement without evidence of necrosis Status: Chronic Code(s): L97.925 - Non-pressure chronic ulcer of unspecified part of left lower leg with muscle involvement without evidence of necrosis (2) Diabetic ulcer of lower leg Status: Chronic Code(s): E11.622 - Type 2 diabetes mellitus with other skin ulcer; L97.909 - Non-pressure chronic ulcer of unspecified part of unspecified lower leg with unspecified severity (3) Type 2 diabetes mellitus Status: Chronic Qualifiers: Code(s): E11.9 - Type 2 diabetes mellitus without complications (4) Former smoker Status: Chronic Code(s): Z87.891 - Personal history of nicotine dependence Type of Wound Date of Service: 07/24/20 Chief Complaint: Nonhealing diabetic abscess ulcer left lateral leg. History of Wound: Surgery 03/08/20 - Surgical preparation left lateral leg with incision and drainage and excisional debridement diabetic abscess (72 cm2). Wound care - Left lateral ulcer Theraskin #6 placed today. Left achilles wound is healed today. Wound culture obtained 04/17/20 which was positive for Klebsiella oxytoca, Enterobacter cloacae complex, Streptococcus agalactiae (B), Enterococcus faecalis, Bacteroides fragilis group, Prevotella melaninogenica, and Anaerobic cocci. He was started on Levaquin, Augmentin and a probiotic. Operative culture showed Staphylococcus aureus. He was discharged on Keflex and has finished them. Prealbumin on 03/10/20 was 9.1. Encouraged nutritional supplementation with protein to help the healing process. Today he denies fever. His appetite is good. Progress of Wound: Improved lateral leg ulcer. Left posterior ankle/achilles ulcer is healed today. - Physical Exam Vital Signs Temp Pulse Resp BP 95.9 F L 69 16 176/93 H 07/24/20 08:35 07/24/20 08:35 07/24/20 08:35 07/24/20 08:35 General: Alert, Oriented x3, Cooperative HEENT: Atraumatic Oral: Moist Mucosa Lungs: Normal air movement Cardiovascular: Regular rate Skin: Ulcer/ Wound - Left lateral leg ulcer is beefy pink and decreasing in size. Left posterior ankle/Achilles ulcer is healed. Wound Measurements and Assessment WC - Nurse 1 - General Ulcer Measurement Start: 06/26/20 08:13 Freq: Status: Active Protocol: Activity Type Activity Date Activity User E-Sign Co-Sign Detail Recorded Client Recorded Date Recorded By Document 07/24/20 08:35 [facility] [id number] 07/24/20 08:44 [facility] 07/24/20 08:35 Wound Center Nurse 1 [Ulcer Assessment] #2 Left heel -Combined with other wound No -Current Size (cm) - Length 0.1 -Current Size (cm) - Width 0.1 -Current Size (cm) - Depth 0.1 -Total Square Cm 0.01 -Epithelialization Large 67-100% #1 Left Lateral LE -Combined with other wound No -Current Size (cm) - Length 4.8 -Current Size (cm) - Width 5.1 -Current Size (cm) - Depth 0.1 -Total Square Cm 24.48 -Photo Taken No -Epithelialization Small 1-33% -Tunneling No -Undermining/Tunneling No -Circular Undermining No -Exudate Amt Medium -Exudate Type Serosanguineous -Wound Margin Distinct, Outline Attached -Granulation Amt Medium (34-66%) -Granulation Quality Red -Slough/Fibrin Yes -Necrosis Amt Small (1-33%) -Necrotic Tissue Type Adherent Slough -Texture (Radha-wound Skin Appearance) Assessed, Scarring -Moisture (Radha-wound Skin Appearance Assessed,Dry/ ) Scaly -Color (Radha-wound Skin Appearance) Assessed -Temperature (Radha-wound Skin No Abnormality Appearance) (Pt Warm) -Tenderness on Palpation (Radha-wound No Skin Appearance) -Ulcer Cleansing soapy water -Foul Odor after Cleansing No -Anesthetic Used 4% Lidocaine Solution WC - Nurse 2 - General Ulcer CM Notes Start: 06/26/20 08:13 Freq: Status: Active Protocol: Activity Type Activity Date Activity User E-Sign Co-Sign Detail Recorded Client Recorded Date Recorded By Document 07/24/20 09:07 LADAN [id number] 07/24/20 09:15 LADAN 07/24/20 09:07 Wound Center Nurse 2 [Procedure/Treatment] #2 Left heel -Correct Patient No -Correct Side, Site, Position No -Correct Procedure No -Procedure Performed No -Post Debridement (cm) - Length 0 -Post Debridement (cm) - Width 0 -Post Debridement (cm) - Depth 0 -Total Square (Post) (cm) 0 -Area of Debridement (cm) - Length 0 -Area of Debridement (cm) - Width 0 -Total Square (Area) (cm) 0 -Wound/Ulcer Outcome Healed- Epithelialized #1 Left Lateral LE -Time 09:07 -Correct Patient Yes -Correct Side, Site, Position Yes -Correct Procedure Yes -Procedure Performed Yes -Type of Procedure Debridement -Clinical Debridement Subcutaneous -Tissue Removed Subcutaneous -Post Debridement (cm) - Length 4.9 -Post Debridement (cm) - Width 4.6 -Post Debridement (cm) - Depth 0.1 -Total Square (Post) (cm) 22.54 -Area of Debridement (cm) - Length 4.9 -Area of Debridement (cm) - Width 4.6 -Total Square (Area) (cm) 22.54 -Tunneling No -Undermining/Tunneling No -Circular Undermining No -Wound/Ulcer Outcome Not Healed -Ulcer Cleansing Rinsed/ Irrigated with Saline -Foul Odor after Cleansing No -Bioengineered Tissue Yes -Type of Bioengineered Tissue Theraskin -Expiration Date 10/15/24 -Product Lot Number [id number] -Percent Used 100 -Lot number of Saline Used [id number] -Bleeding Controlled with Pressure -Offloading No -Treatment Response Procedure Tolerated Well -Debridement - Subq, 1st 20sq cm No -Apply Skin Sub - 1st 25 sq cm - Legs 1 -Theraskin (per sq cm) 26 [See Physician Procedure note for Specifics] Pain Scale: 0-10 Numeric [Pain] -Is Patient Pain Free? Yes - Nurse 3 - General Ulcer D/C NN Start: 06/26/20 08:13 Freq: Status: Active Protocol: Activity Type Activity Date Activity User E-Sign Co-Sign Detail Recorded Client Recorded Date Recorded By Document 07/24/20 09:21 DL [id number] 07/24/20 09:23 DL 07/24/20 09:21 Wound Care Nurse 3 [Wound Dressing] #1 Left Lateral LE -Foul Odor after Cleansing No -Primary Dressing Covered/Secured Dry Gauze & with Roll Gauze, Secured with Tape [Compression Applied] Left -Other tubigrip [Post Procedure Tolerated] -Treatment Response Procedure Tolerated Well Pain Scale: 0-10 Numeric [Pain] -Is Patient Pain Free? Yes - Visit Discharge [Visit Discharge Information] -Discharge Condition Stable -Ambulatory Status Ambulatory -Transportation Private Auto -Notes: L Achilles healed. Gauze only applied. Musculoskeletal: No Tenderness to Palpation of Joints or Extremities Neurological: Cranial nerves II-XII grossly intact Psych/Mental Status: Normal Affect, Appropriate Debridement Note Post-Debridement Measurements/Treatment WC - Nurse 2 - General Ulcer CM Notes Start: 06/26/20 08:13 Freq: Status: Active Protocol: Activity Type Activity Date Activity User E-Sign Co-Sign Detail Recorded Client Recorded Date Recorded By Document 06/26/20 08:46 [id number] 06/26/20 08:57 Document 07/03/20 08:57 [id number] 07/03/20 09:01 Document 07/10/20 08:57 [id number] 07/10/20 09:15 Document 07/17/20 08:52 [id number] 07/17/20 08:56 Document 07/24/20 09:07 [id number] 07/24/20 09:15 JF 06/26/20 07/03/20 07/10/20 08:46 08:57 08:57 Wound Center Nurse 2 #2 Left heel -Time 08:46 08:57 09:04 -Correct Patient Yes Yes Yes -Correct Side, Site, Position Yes Yes Yes -Correct Procedure Yes Yes Yes -Procedure Performed Yes Yes Yes -Type of Procedure Debridement Debridement Debridement -Clinical Debridement Subcutaneous Subcutaneous Subcutaneous -Tissue Removed Subcutaneous Subcutaneous Subcutaneous -Post Debridement (cm) - Length 1.0 0.6 1.2 -Post Debridement (cm) - Width 0.5 0.5 0.3 -Post Debridement (cm) - Depth 0.2 0.1 0.1 -Total Square (Post) (cm) 0.50 0.30 0.36 -Area of Debridement (cm) - Length 1.0 0.6 1.2 -Area of Debridement (cm) - Width 0.5 0.5 0.3 -Total Square (Area) (cm) 0.50 0.30 0.36 -Tunneling No No No -Undermining/Tunneling No No No -Circular Undermining No No No -Wound/Ulcer Outcome Not Healed Not Healed Not Healed -Ulcer Cleansing Rinsed/ Rinsed/ Rinsed/ Irrigated with Irrigated with Irrigated with Saline Saline Saline -Foul Odor after Cleansing No No No -Bioengineered Tissue No No No -Bleeding Controlled with Pressure Pressure Pressure -Offloading No No No -Treatment Response Procedure Procedure Procedure Tolerated Well Tolerated Well Tolerated Well -Debridement - Subq, 1st 20sq cm Yes Yes Yes #1 Left Lateral LE -Time 08:46 09:06 -Correct Patient Yes No Yes -Correct Side, Site, Position Yes No Yes -Correct Procedure Yes No Yes -Procedure Performed Yes No Yes -Type of Procedure Debridement Debridement -Clinical Debridement Subcutaneous Subcutaneous -Tissue Removed Subcutaneous Subcutaneous -Post Debridement (cm) - Length 6.2 5.7 -Post Debridement (cm) - Width 5.8 4.9 -Post Debridement (cm) - Depth 0.1 0.1 -Total Square (Post) (cm) 35.96 27.93 -Area of Debridement (cm) - Length 6.2 5.7 -Area of Debridement (cm) - Width 5.8 4.9 -Total Square (Area) (cm) 35.96 27.93 -Tunneling No No -Undermining/Tunneling No No -Circular Undermining No No -Wound/Ulcer Outcome Not Healed Not Healed Not Healed -Ulcer Cleansing Rinsed/ Rinsed/ Irrigated with Irrigated with Saline Saline -Foul Odor after Cleansing No No -Bioengineered Tissue Yes Yes -Type of Bioengineered Tissue Theraskin Theraskin -Expiration Date 12/15/24 06/21/24 -Product Lot Number [id number] -Percent Used 100 100 -Lot number of Saline Used [id number] -Bleeding Controlled with Pressure Pressure -Offloading No No -Treatment Response Procedure Procedure Tolerated Well Tolerated Well -Debridement - Subq, 1st 20sq cm No No -Apply Skin Sub - 1st 25 sq cm - Legs 1 1 -Apply Skin Sub - each addt'l 25 sq cm 1 1 - Legs -Theraskin (per sq cm) 39 26 Pain Scale: 0-10 Numeric Is Patient Pain Free? Yes Yes Yes 07/17/20 07/24/20 08:52 09:07 Wound Center Nurse 2 #2 Left heel -Time 08:54 -Correct Patient Yes No -Correct Side, Site, Position Yes No -Correct Procedure Yes No -Procedure Performed Yes No -Type of Procedure Debridement -Clinical Debridement Subcutaneous -Tissue Removed Subcutaneous -Post Debridement (cm) - Length 1.7 0 -Post Debridement (cm) - Width 0.4 0 -Post Debridement (cm) - Depth 0.1 0 -Total Square (Post) (cm) 0.68 0 -Area of Debridement (cm) - Length 1.7 0 -Area of Debridement (cm) - Width 0.4 0 -Total Square (Area) (cm) 0.68 0 -Tunneling No -Undermining/Tunneling No -Circular Undermining No -Wound/Ulcer Outcome Not Healed Healed- Epithelialized -Ulcer Cleansing Rinsed/ Irrigated with Saline -Foul Odor after Cleansing No -Bioengineered Tissue No -Bleeding Controlled with Pressure -Offloading No -Treatment Response Procedure Tolerated Well -Debridement - Subq, 1st 20sq cm Yes #1 Left Lateral LE -Time 09:07 -Correct Patient No Yes -Correct Side, Site, Position No Yes -Correct Procedure No Yes -Procedure Performed No Yes -Type of Procedure Debridement -Clinical Debridement Subcutaneous -Tissue Removed Subcutaneous -Post Debridement (cm) - Length 4.9 -Post Debridement (cm) - Width 4.6 -Post Debridement (cm) - Depth 0.1 -Total Square (Post) (cm) 22.54 -Area of Debridement (cm) - Length 4.9 -Area of Debridement (cm) - Width 4.6 -Total Square (Area) (cm) 22.54 -Tunneling No No -Undermining/Tunneling No No -Circular Undermining No No -Wound/Ulcer Outcome Not Healed Not Healed -Ulcer Cleansing Rinsed/ Rinsed/ Irrigated with Irrigated with Saline Saline -Foul Odor after Cleansing No No -Bioengineered Tissue No Yes -Type of Bioengineered Tissue Theraskin -Expiration Date 10/15/24 -Product Lot Number [id number] -Percent Used 100 -Lot number of Saline Used [id number] -Bleeding Controlled with Pressure Pressure -Offloading No No -Treatment Response Procedure Procedure Tolerated Well Tolerated Well -Debridement - Subq, 1st 20sq cm No No -Apply Skin Sub - 1st 25 sq cm - Legs 1 -Apply Skin Sub - each addt'l 25 sq cm - Legs -Theraskin (per sq cm) 26 Pain Scale: 0-10 Numeric Is Patient Pain Free? Yes Yes WC - Nurse 3 - General Ulcer D/C NN Start: 06/26/20 08:13 Freq: Status: Active Protocol: Activity Type Activity Date Activity User E-Sign Co-Sign Detail Recorded Client Recorded Date Recorded By Document 06/26/20 09:12 DL [id number] 06/26/20 09:15 DL Document 07/03/20 09:04 [facility] [id number] 07/03/20 09:07 [facility] Document 07/10/20 09:30 [facility] [id number] 07/10/20 09:31 BM Document 07/17/20 09:06 [facility] [id number] 07/17/20 09:07 [facility] Document 07/24/20 09:21 DL [id number] 07/24/20 09:23 DL 06/26/20 07/03/20 07/10/20 09:12 09:04 09:30 Wound Care Nurse 3 #2 Left heel -Ulcer Cleansing Rinsed/ Rinsed/ Rinsed/ Irrigated with Irrigated with Irrigated with Saline Saline Saline -Foul Odor after Cleansing No No No -Primary Dressing Applied Other Other -Other Dressing Adaptic/ hydrogel hydrogel hydrogel -Primary Dressing Covered/Secured with Dry Gauze & Dry Gauze & Dry Gauze, Roll Gauze, Roll Gauze, Secured with Secured with Secured with Tape Tape Tape #1 Left Lateral LE -Ulcer Cleansing Wound Cleanser -Foul Odor after Cleansing No -Primary Dressing Applied Other -Other Dressing [place]/ theraskin theraskin adaptic/steri strips -Primary Dressing Covered/Secured with Dry Gauze & Dry Gauze & Dry Gauze, Roll Gauze, Roll Gauze, Secured with Secured with Secured with Tape,Other Tape Tape -Other Covering abd Left -Tubular Bandage Double Layer -Size of Tubigrip Used Size E -Size E ($) 2 -Other applied pt's own tubigrip Treatment Response Procedure Procedure Tolerated Well Tolerated Well Pain Scale: 0-10 Numeric Is Patient Pain Free? Yes Yes Yes WC - Visit Discharge Discharge Condition Stable Stable Stable Ambulatory Status Ambulatory Ambulatory Ambulatory Transportation Private Auto Private Auto Private Auto Notes: Facility Type Home Health Orders Sent Yes 07/17/20 07/24/20 09:06 09:21 Wound Care Nurse 3 #2 Left heel -Ulcer Cleansing Rinsed/ Irrigated with Saline -Foul Odor after Cleansing No -Primary Dressing Applied Other -Other Dressing HYDROGEL -Primary Dressing Covered/Secured with Dry Gauze, Secured with Tape #1 Left Lateral LE -Ulcer Cleansing -Foul Odor after Cleansing No -Primary Dressing Applied -Other Dressing THERASKIN -Primary Dressing Covered/Secured with Secured with Dry Gauze & Tape,Other Roll Gauze, Secured with Tape -Other Covering ABD; ALLAN WILLOUGHBY LPN Left -Tubular Bandage -Size of Tubigrip Used -Size E ($) -Other APPLIED PTS OWN tubigrip TUBI, DOUBLE LAYER Treatment Response Procedure Tolerated Well Pain Scale: 0-10 Numeric Is Patient Pain Free? Yes Yes WC - Visit Discharge Discharge Condition Stable Stable Ambulatory Status Ambulatory Ambulatory Transportation Private Auto Private Auto Notes: L Achilles healed. Gauze only applied. Facility Type Orders Sent Wound debrided: Lateral lower leg Laterality: Left Type of Debridement: Excisional debridement Anesthesia Used: 5% Lidocaine Gel Depth: Down to and including healthy tissue, in the subcutaneous layer Percentage of wound debrided: 100 Instrument Used: 7mm curette Tissue Removed: Subcutaneous tissue and slough Severity: Fat Layer Exposed Amount of bleeding with debridement: Moderate Bleeding Controlled with: Pressure, Compression and gauze Patient tolerated procedure well Assessment/Plan Active Problems Diabetic ulcer of lower leg (Chronic) Ulcer of left lower extremity with muscle involvement without evidence of necrosis (Chronic) Former smoker (Chronic) Type 2 diabetes mellitus (Chronic) Assessment: 1. 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 2. Diabetes mellitus. 3. History of Streptococcal infection. 4. Former smoker. Plan: Wound care - Theraskin #6 placed on left lateral leg today. 26 cm? placed, 90% used. Secured with Dermabond and Steri-Strips. Topped with Adaptic touch which was secured with Steri-Strips. Topped with dry gauze. Left achilles ulcer is healed today, followed by double tubigrip for compression. Encouraged him to massage the left posterior ankle area with lotion daily. He may need to cover the heel area with gauze before placing compression. Wound culture obtained 04/17/20 which was positive for Klebsiella oxytoca, Enterobacter cloacae complex, Streptococcus agalactiae (B), Enterococcus faecalis, Bacteroides fragilis group, Prevotella melaninogenica, and Anaerobic cocci. He was started on Levaquin, Augmentin and a probiotic, which he has completed. His operative culture showed Staphylococcus aureus. He was discharged on Keflex and has finished them. His Prealbumin from 03/10/20 was 9.1. Encourage nutritional supplementation with protein to help the healing process. Discussed further operative intervention with debridement and skin grafting using an autograft. He wants to try the advanced skin substitute grafts first. Patient would like to increase his activity with his job. He may go to sites but is not to be climbing ladders or standing one position for long periods of time. It is ok for him to be walking. Follow up 1 week. [id number]: [id number] Skin sub graft trnk/arm/leg
== END 2020-07-26 23:59 ==
LOC: WC 08:30
PROVIDERS: PCP Family Medicine; Referring Provider Surgery; Visit Provider Nurse Practitioner Family
DX: E11.622 Type 2 diabetes mellitus with other skin ulcer (principal); Z86.19 Personal history of other infectious and parasitic diseases; E11.621 Type 2 diabetes mellitus with foot ulcer; L97.822 Non-pressure chronic ulcer of other part of left lower leg with fat layer exposed; Z87.891 Personal history of nicotine dependence; L97.421 Non-pressure chronic ulcer of left heel and midfoot limited to breakdown of skin
CPT/HCPCS: 11042; 15271; 15272; Q4121

== ENCOUNTER 2020-08-21 08:45 | Outpatient (RCR) | payer BC, MEDICAID, SELFPAY ==
[2020-07-27 00:37] VITALS: BP 176/93; PULSE 69; RESP 16; TEMP 35.5
[2020-07-31 08:33] VITALS: BP 154/92; PULSE 69; RESP 16; TEMP 35.4; BMI 33.8
--- NOTE | 2020-07-31 08:37 | WC ---
stefan left intact
--- NOTE | 2020-07-31 11:14 | PN.PCM_ITS ---
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 Code(s): E11.622 - Type 2 diabetes mellitus with other skin ulcer; L97.909 - Non-pressure chronic ulcer of unspecified part of unspecified lower leg with unspecified severity (2) Ulcer of left lower extremity with muscle involvement without evidence of necrosis Status: Chronic Code(s): L97.925 - Non-pressure chronic ulcer of unspecified part of left lower leg with muscle involvement without evidence of necrosis (3) Type 2 diabetes mellitus Status: Chronic Qualifiers: Code(s): E11.9 - Type 2 diabetes mellitus without complications (4) Former smoker Status: Chronic Code(s): Z87.891 - Personal history of nicotine dependence Type of Wound Date of Service: 07/31/20 Chief Complaint: Nonhealing diabetic abscess ulcer left lateral leg. History of Wound: Surgery 03/08/20 - Surgical preparation left lateral leg with incision and drainage and excisional debridement diabetic abscess (72 cm2). Wound care - Left lateral ulcer Theraskin #6 placed last week. Left achilles wound remains healed. Wound culture obtained 04/17/20 which was positive for Klebsiella oxytoca, Enterobacter cloacae complex, Streptococcus agalactiae (B), Enterococcus faecalis, Bacteroides fragilis group, Prevotella melaninogenica, and Anaerobic cocci. He was started on Levaquin, Augmentin and a probiotic. Operative culture showed Staphylococcus aureus. He was discharged on Keflex and has finished them. Prealbumin on 03/10/20 was 9.1. Encouraged nutritional supplementation with protein to help the healing process. Today he denies fever. His appetite is good. Progress of Wound: Improved lateral leg ulcer. Left posterior ankle/achilles ulcer remains healed. - Physical Exam Vital Signs Temp Pulse Resp BP 95.7 F L 69 16 154/92 H 07/31/20 08:33 07/31/20 08:33 07/31/20 08:33 07/31/20 08:33 General: Alert, Oriented x3, Cooperative HEENT: Atraumatic Oral: Moist Mucosa Lungs: Normal air movement Cardiovascular: Regular rate Extremities: No edema, Capillary Refill Less than 3 Seconds Skin: Ulcer/ Wound - Left lateral leg ulcer with TheraSkin in place and wound veil intact. Left posterior ankle/Achilles area remains healed. Wound Measurements and Assessment WC - Nurse 1 - General Ulcer Measurement Start: 07/31/20 08:33 Freq: Status: Active Protocol: Activity Type Activity Date Activity User E-Sign Co-Sign Detail Recorded Client Recorded Date Recorded By Document 07/31/20 08:33 [facility] [id number] 07/31/20 08:37 [facility] 07/31/20 08:33 Wound Center Nurse 1 [Ulcer Assessment] #1 Left Lateral LE -Combined with other wound No -Current Size (cm) - Length 0.1 -Current Size (cm) - Width 0.1 -Current Size (cm) - Depth 0.1 -Total Square Cm 0.01 -Texture (Radha-wound Skin Appearance) Assessed -Moisture (Radha-wound Skin Appearance Assessed,Dry/ ) Scaly -Color (Radha-wound Skin Appearance) Assessed [Edema Assessment] -Lower Limb Edema Present Yes -Left Calf (cm) 41.6 -Left Ankle (cm) 22.8 - Nurse 2 - General Ulcer CM Notes Start: 07/31/20 08:33 Freq: Status: Active Protocol: Activity Type Activity Date Activity User E-Sign Co-Sign Detail Recorded Client Recorded Date Recorded By Document 07/31/20 08:57 [id number] 07/31/20 09:00 07/31/20 08:57 Wound Center Nurse 2 [Procedure/Treatment] #1 Left Lateral LE -Correct Patient No -Correct Side, Site, Position No -Correct Procedure No -Procedure Performed No -Tunneling No -Undermining/Tunneling No -Circular Undermining No -Wound/Ulcer Outcome Not Healed [See Physician Procedure note for Specifics] Pain Scale: 0-10 Numeric [Pain] -Is Patient Pain Free? Yes - Nurse 3 - General Ulcer D/C NN Start: 07/31/20 08:33 Freq: Status: Active Protocol: Activity Type Activity Date Activity User E-Sign Co-Sign Detail Recorded Client Recorded Date Recorded By Document 07/31/20 09:05 [facility] [id number] 07/31/20 09:06 [facility] 07/31/20 09:05 Wound Care Nurse 3 [Wound Dressing] #1 Left Lateral LE -Primary Dressing Covered/Secured Secured with with Tape,Other -Other Covering theraskin intact, abd [Compression Applied] Left -Tubular Bandage Double Layer -Size of Tubigrip Used Size E -Size E ($) 1 [Post Procedure Tolerated] -Treatment Response Procedure Tolerated Well Pain Scale: 0-10 Numeric [Pain] -Is Patient Pain Free? Yes - Visit Discharge [Visit Discharge Information] -Discharge Condition Stable -Ambulatory Status Ambulatory -Transportation Private Auto Musculoskeletal: No Tenderness to Palpation of Joints or Extremities Neurological: Cranial nerves II-XII grossly intact Psych/Mental Status: Normal Affect, Appropriate Debridement Note Post-Debridement Measurements/Treatment - Nurse 2 - General Ulcer CM Notes Start: 07/31/20 08:33 Freq: Status: Active Protocol: Activity Type Activity Date Activity User E-Sign Co-Sign Detail Recorded Client Recorded Date Recorded By Document 07/31/20 08:57 [id number] 07/31/20 09:00 07/31/20 08:57 Wound Center Nurse 2 #1 Left Lateral LE -Correct Patient No -Correct Side, Site, Position No -Correct Procedure No -Procedure Performed No -Tunneling No -Undermining/Tunneling No -Circular Undermining No -Wound/Ulcer Outcome Not Healed Pain Scale: 0-10 Numeric Is Patient Pain Free? Yes - Nurse 3 - General Ulcer D/C NN Start: 07/31/20 08:33 Freq: Status: Active Protocol: Activity Type Activity Date Activity User E-Sign Co-Sign Detail Recorded Client Recorded Date Recorded By Document 07/31/20 09:05 [facility] [id number] 07/31/20 09:06 [facility] 07/31/20 09:05 Wound Care Nurse 3 #1 Left Lateral LE -Primary Dressing Covered/Secured with Secured with Tape,Other -Other Covering theraskin intact, abd Left -Tubular Bandage Double Layer -Size of Tubigrip Used Size E -Size E ($) 1 Treatment Response Procedure Tolerated Well Pain Scale: 0-10 Numeric Is Patient Pain Free? Yes - Visit Discharge Discharge Condition Stable Ambulatory Status Ambulatory Transportation Private Auto No debridement was completed today Assessment/Plan Assessment: 1. 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 2. Diabetes mellitus. 3. History of Streptococcal infection. 4. Former smoker. Plan: Wound care - Theraskin #6 placed on left lateral leg last week. Wound veil in place secured by Steri-Strips. Left achilles ulcer remains healed. Double tubigrip for compression. Encouraged him to massage the left posterior ankle area with lotion daily. He may need to cover the heel area with gauze before placing compression. Wound culture obtained 04/17/20 which was positive for Klebsiella oxytoca, Enterobacter cloacae complex, Streptococcus agalactiae (B), Enterococcus faecalis, Bacteroides fragilis group, Prevotella melaninogenica, and Anaerobic cocci. He was started on Levaquin, Augmentin and a probiotic, which he has completed. His operative culture showed Staphylococcus aureus. He was discharged on Keflex and has finished them. His Prealbumin from 03/10/20 was 9.1. Encourage nutritional supplementation with protein to help the healing process. Discussed further operative intervention with debridement and skin grafting using an autograft. He wants to try the advanced skin substitute grafts first. Patient would like to increase his activity with his job. He may go to sites but is not to be climbing ladders or standing one position for long periods of time. It is ok for him to be walking. Follow up 1 week. Office Visits / Consults: [id number] OV L3 Est
[2020-08-07 08:51] VITALS: BP 163/90; PULSE 71; RESP 16; TEMP 35.7; BMI 33.8
[2020-08-07 09:38] VITALS: BP 159/71
--- NOTE | 2020-08-07 10:31 | PN.PCM_ITS ---
(1) Ulcer of left lower extremity with muscle involvement without evidence of necrosis Status: Chronic Code(s): L97.925 - Non-pressure chronic ulcer of unspecified part of left lower leg with muscle involvement without evidence of necrosis (2) Diabetic ulcer of lower leg Status: Chronic Code(s): E11.622 - Type 2 diabetes mellitus with other skin ulcer; L97.909 - Non-pressure chronic ulcer of unspecified part of unspecified lower leg with unspecified severity (3) Type 2 diabetes mellitus Status: Chronic Qualifiers: Code(s): E11.9 - Type 2 diabetes mellitus without complications (4) Former smoker Status: Chronic Code(s): Z87.891 - Personal history of nicotine dependence Type of Wound Date of Service: 08/07/20 Chief Complaint: Nonhealing diabetic abscess ulcer left lateral leg. History of Wound: Surgery 03/08/20 - Surgical preparation left lateral leg with incision and drainage and excisional debridement diabetic abscess (72 cm2). Wound care - Left lateral ulcer Theraskin #7 placed today. Left achilles wound remains healed. Wound culture obtained 04/17/20 which was positive for Klebsiella oxytoca, Enterobacter cloacae complex, Streptococcus agalactiae (B), Enterococcus faecalis, Bacteroides fragilis group, Prevotella melaninogenica, and Anaerobic cocci. He was started on Levaquin, Augmentin and a probiotic. Operative culture showed Staphylococcus aureus. He was discharged on Keflex and has finished them. Prealbumin on 03/10/20 was 9.1. Encouraged nutritional supplementation with protein to help the healing process. Today he denies fever. His appetite is good. Progress of Wound: Improved lateral leg ulcer. Left posterior ankle/achilles ulcer remains healed. - Physical Exam Vital Signs Temp Pulse Resp BP 96.3 F L 71 16 159/71 H 08/07/20 08:51 08/07/20 08:51 08/07/20 08:51 08/07/20 09:38 General: Alert, Oriented x3, Cooperative HEENT: Atraumatic Oral: Moist Mucosa Lungs: Normal air movement Cardiovascular: Regular rate Extremities: Capillary Refill Less than 3 Seconds Skin: Ulcer/ Wound - Left lateral leg ulcer is decreasing in size. The color is beefy pink. Wound Measurements and Assessment WC - Nurse 1 - General Ulcer Measurement Start: 07/31/20 08:33 Freq: Status: Active Protocol: Activity Type Activity Date Activity User E-Sign Co-Sign Detail Recorded Client Recorded Date Recorded By Document 08/07/20 08:51 NATALI [id number] 08/07/20 08:53 NATALI 08/07/20 08:51 Wound Center Nurse 1 [Ulcer Assessment] #1 Left Lateral LE -Combined with other wound No -Current Size (cm) - Length 3.6 -Current Size (cm) - Width 3.9 -Current Size (cm) - Depth 0.1 -Total Square Cm 14.04 -Photo Taken No -Epithelialization None Present -Tunneling No -Undermining/Tunneling No -Circular Undermining No -Exudate Amt Medium -Exudate Type Serosanguineous -Wound Margin Distinct, Outline Attached -Granulation Amt Small (1-33%) -Granulation Quality Hyper- granulation,Red -Slough/Fibrin Yes -Necrosis Amt Large (67-100%) -Necrotic Tissue Type Adherent Slough -Texture (Radha-wound Skin Appearance) Assessed, Scarring -Moisture (Radha-wound Skin Appearance Assessed,Dry/ ) Scaly -Color (Radha-wound Skin Appearance) Assessed -Temperature (Radha-wound Skin No Abnormality Appearance) (Pt Warm) -Tenderness on Palpation (Radha-wound No Skin Appearance) -Ulcer Cleansing soapy water -Foul Odor after Cleansing No -Anesthetic Used 4% Lidocaine Solution [Edema Assessment] -Lower Limb Edema Present Yes -Left Calf (cm) 43 -Left Ankle (cm) 25 WC - Nurse 2 - General Ulcer CM Notes Start: 07/31/20 08:33 Freq: Status: Active Protocol: Activity Type Activity Date Activity User E-Sign Co-Sign Detail Recorded Client Recorded Date Recorded By Document 08/07/20 09:18 LADAN [id number] 08/07/20 09:26 LADAN 08/07/20 09:18 Wound Center Nurse 2 [Procedure/Treatment] #1 Left Lateral LE -Time 09:23 -Correct Patient Yes -Correct Side, Site, Position Yes -Correct Procedure Yes -Procedure Performed Yes -Type of Procedure Debridement -Clinical Debridement Subcutaneous -Tissue Removed Subcutaneous -Post Debridement (cm) - Length 4 -Post Debridement (cm) - Width 3.6 -Post Debridement (cm) - Depth 0.1 -Total Square (Post) (cm) 14.4 -Area of Debridement (cm) - Length 4 -Area of Debridement (cm) - Width 3.6 -Total Square (Area) (cm) 14.4 -Tunneling No -Undermining/Tunneling No -Circular Undermining No -Wound/Ulcer Outcome Not Healed -Ulcer Cleansing Rinsed/ Irrigated with Saline -Foul Odor after Cleansing No -Bioengineered Tissue Yes -Type of Bioengineered Tissue Theraskin -Expiration Date 11/19/23 -Product Lot Number [id number] -Percent Used 100 -Lot number of Saline Used [id number] -Bleeding Controlled with Pressure -Offloading No -Treatment Response Procedure Tolerated Well -Debridement - Subq, 1st 20sq cm No -Apply Skin Sub - 1st 25 sq cm - Legs 1 -Theraskin (per sq cm) 13 [See Physician Procedure note for Specifics] Pain Scale: 0-10 Numeric [Pain] -Is Patient Pain Free? Yes - Nurse 3 - General Ulcer D/C NN Start: 07/31/20 08:33 Freq: Status: Active Protocol: Activity Type Activity Date Activity User E-Sign Co-Sign Detail Recorded Client Recorded Date Recorded By Document 08/07/20 09:38 NATALI [id number] 08/07/20 09:38 NATALI 08/07/20 09:38 Wound Care Nurse 3 [Wound Dressing] #1 Left Lateral LE -Primary Dressing Covered/Secured Dry Gauze, with Secured with Tape Vital Signs [Blood Pressure] -Blood Pressure (90/60-120/80) 159/71 H -Blood Pressure Mean (mm Hg) 100 -Source Monitor -Position Sitting -Blood Pressure Location Right Arm Pain Scale: 0-10 Numeric [Pain] -Is Patient Pain Free? Yes - Visit Discharge [Visit Discharge Information] -Discharge Condition Stable -Ambulatory Status Ambulatory -Transportation Private Auto Musculoskeletal: No Tenderness to Palpation of Joints or Extremities Neurological: Cranial nerves II-XII grossly intact Psych/Mental Status: Normal Affect, Appropriate Debridement Note Post-Debridement Measurements/Treatment - Nurse 2 - General Ulcer CM Notes Start: 07/31/20 08:33 Freq: Status: Active Protocol: Activity Type Activity Date Activity User E-Sign Co-Sign Detail Recorded Client Recorded Date Recorded By Document 07/31/20 08:57 LADAN [id number] 07/31/20 09:00 Document 08/07/20 09:18 LADAN [id number] 04/12/21 09:26 JF 07/31/20 08/07/20 08:57 09:18 Wound Center Nurse 2 #1 Left Lateral LE -Time 09:23 -Correct Patient No Yes -Correct Side, Site, Position No Yes -Correct Procedure No Yes -Procedure Performed No Yes -Type of Procedure Debridement -Clinical Debridement Subcutaneous -Tissue Removed Subcutaneous -Post Debridement (cm) - Length 4 -Post Debridement (cm) - Width 3.6 -Post Debridement (cm) - Depth 0.1 -Total Square (Post) (cm) 14.4 -Area of Debridement (cm) - Length 4 -Area of Debridement (cm) - Width 3.6 -Total Square (Area) (cm) 14.4 -Tunneling No No -Undermining/Tunneling No No -Circular Undermining No No -Wound/Ulcer Outcome Not Healed Not Healed -Ulcer Cleansing Rinsed/ Irrigated with Saline -Foul Odor after Cleansing No -Bioengineered Tissue Yes -Type of Bioengineered Tissue Theraskin -Expiration Date 11/19/23 -Product Lot Number [id number] -Percent Used 100 -Lot number of Saline Used [id number] -Bleeding Controlled with Pressure -Offloading No -Treatment Response Procedure Tolerated Well -Debridement - Subq, 1st 20sq cm No -Apply Skin Sub - 1st 25 sq cm - Legs 1 -Theraskin (per sq cm) 13 Pain Scale: 0-10 Numeric Is Patient Pain Free? Yes Yes - Nurse 3 - General Ulcer D/C NN Start: 07/31/20 08:33 Freq: Status: Active Protocol: Activity Type Activity Date Activity User E-Sign Co-Sign Detail Recorded Client Recorded Date Recorded By Document 07/31/20 09:05 [facility] [id number] 07/31/20 09:06 [facility] Document 08/07/20 09:38 KR [id number] 08/07/20 09:38 KR 07/31/20 08/07/20 09:05 09:38 Wound Care Nurse 3 #1 Left Lateral LE -Primary Dressing Covered/Secured with Secured with Dry Gauze, Tape,Other Secured with Tape -Other Covering theraskin intact, abd Left -Tubular Bandage Double Layer -Size of Tubigrip Used Size E -Size E ($) 1 Treatment Response Procedure Tolerated Well Vital Signs Blood Pressure (90/60-120/80) 159/71 H Blood Pressure Mean (mm Hg) 100 Source Monitor Position Sitting Blood Pressure Location Right Arm Pain Scale: 0-10 Numeric Is Patient Pain Free? Yes Yes WC - Visit Discharge Discharge Condition Stable Stable Ambulatory Status Ambulatory Ambulatory Transportation Private Auto Private Auto Wound debrided: lateral leg ulcer Laterality: Left Type of Debridement: Excisional debridement Anesthesia Used: 5% Lidocaine Gel Depth: Down to and including healthy tissue, in the subcutaneous layer Percentage of wound debrided: 100 Instrument Used: 5mm curette Tissue Removed: Subcutaneous tissue and slough Severity: Fat Layer Exposed Amount of bleeding with debridement: Mild Bleeding Controlled with: Pressure, Compression and gauze Patient tolerated procedure well Assessment/Plan Active Problems Diabetic ulcer of lower leg (Chronic) Ulcer of left lower extremity with muscle involvement without evidence of necrosis (Chronic) Former smoker (Chronic) Type 2 diabetes mellitus (Chronic) Assessment: 1. 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 2. Diabetes mellitus. 3. History of Streptococcal infection. 4. Former smoker. Plan: Wound care - Theraskin #7 placed on left lateral leg ulcer. Secured with dermabond and steri-strips. Wound veil in place secured by Steri-Strips. Covered with dry gauze. Left achilles ulcer remains healed. Double tubigrip for compression. Encouraged him to massage the left posterior ankle area with lotion daily. He may need to cover the heel area with gauze before placing compression. Wound culture obtained 04/17/20 which was positive for Klebsiella oxytoca, Enterobacter cloacae complex, Streptococcus agalactiae (B), Enterococcus faecalis, Bacteroides fragilis group, Prevotella melaninogenica, and Anaerobic cocci. He was started on Levaquin, Augmentin and a probiotic, which he has completed. His operative culture showed Staphylococcus aureus. He was discharged on Keflex and has finished them. His Prealbumin from 03/10/20 was 9.1. Encourage nutritional supplementation with protein to help the healing process. Discussed further operative intervention with debridement and skin grafting using an autograft. He wants to try the advanced skin substitute grafts first. Patient would like to increase his activity with his job. He may go to sites but is not to be climbing ladders or standing one position for long periods of time. It is ok for him to be walking. Follow up 1 week. [id number]: [id number] Skin sub graft trnk/arm/leg
[2020-08-14 08:48] VITALS: BP 162/84; PULSE 68; RESP 16; TEMP 35.5; BMI 33.8
--- NOTE | 2020-08-14 08:53 | WC ---
stefan left intact
--- NOTE | 2020-08-14 11:29 | PCM.WC.PN ---
(1) Ulcer of left lower extremity with muscle involvement without evidence of necrosis Status: Chronic Code(s): L97.925 - Non-pressure chronic ulcer of unspecified part of left lower leg with muscle involvement without evidence of necrosis (2) Diabetic ulcer of lower leg Status: Chronic Code(s): E11.622 - Type 2 diabetes mellitus with other skin ulcer; L97.909 - Non-pressure chronic ulcer of unspecified part of unspecified lower leg with unspecified severity (3) Type 2 diabetes mellitus Status: Chronic Qualifiers: Code(s): E11.9 - Type 2 diabetes mellitus without complications (4) Former smoker Status: Chronic Code(s): Z87.891 - Personal history of nicotine dependence Type of Wound Date of Service: 08/14/20 Chief Complaint: Nonhealing diabetic abscess ulcer left lateral leg. History of Wound: Surgery 03/08/20 - Surgical preparation left lateral leg with incision and drainage and excisional debridement diabetic abscess (72 cm2). Wound care - Left lateral ulcer Theraskin #7 placed last week. Left achilles wound remains healed. Wound culture obtained 04/17/20 which was positive for Klebsiella oxytoca, Enterobacter cloacae complex, Streptococcus agalactiae (B), Enterococcus faecalis, Bacteroides fragilis group, Prevotella melaninogenica, and Anaerobic cocci. He was started on Levaquin, Augmentin and a probiotic. Operative culture showed Staphylococcus aureus. He was discharged on Keflex and has finished them. Prealbumin on 03/10/20 was 9.1. Encouraged nutritional supplementation with protein to help the healing process. Today he denies fever. His appetite is good. Progress of Wound: Improved lateral leg ulcer. Left posterior ankle/achilles ulcer remains healed. - Physical Exam Vital Signs Temp Pulse Resp BP 96 F L 68 16 162/84 H 08/14/20 08:48 08/14/20 08:48 08/14/20 08:48 08/14/20 08:48 General: Alert, Oriented x3, Cooperative HEENT: Atraumatic Oral: Moist Mucosa Lungs: Clear to auscultation, Normal air movement Cardiovascular: Regular rate, Regular Rhythm Abdomen: Bowel Sounds Present, Soft Extremities: Capillary Refill Less than 3 Seconds Skin: Ulcer/ Wound - Left lateral leg ulcer with Theraskin in place. Excoriated around the edges of the ulcer. New wound veil placed and steri-strips placed. Wound Measurements and Assessment WC - Nurse 1 - General Ulcer Measurement Start: 07/31/20 08:33 Freq: Status: Active Protocol: Activity Type Activity Date Activity User E-Sign Co-Sign Detail Recorded Client Recorded Date Recorded By Document 08/14/20 08:48 [facility] [id number] 08/14/20 08:53 [facility] 08/14/20 08:48 Wound Center Nurse 1 [Ulcer Assessment] #1 Left Lateral LE -Combined with other wound No -Current Size (cm) - Length 0.1 -Current Size (cm) - Width 0.1 -Current Size (cm) - Depth 0.1 -Total Square Cm 0.01 -Photo Taken No -Texture (Radha-wound Skin Appearance) Assessed, Scarring -Moisture (Radha-wound Skin Appearance Assessed,Dry/ ) Scaly -Color (Radha-wound Skin Appearance) Assessed -Temperature (Radha-wound Skin No Abnormality Appearance) (Pt Warm) -Tenderness on Palpation (Radha-wound No Skin Appearance) [Edema Assessment] -Lower Limb Edema Present Yes -Left Calf (cm) 40.5 -Left Ankle (cm) 22.5 WC - Nurse 2 - General Ulcer CM Notes Start: 07/31/20 08:33 Freq: Status: Active Protocol: Activity Type Activity Date Activity User E-Sign Co-Sign Detail Recorded Client Recorded Date Recorded By Document 08/14/20 09:12 LADAN [id number] 08/14/20 09:17 LADAN 08/14/20 09:12 Wound Center Nurse 2 [Procedure/Treatment] #1 Left Lateral LE -Correct Patient No -Correct Side, Site, Position No -Correct Procedure No -Procedure Performed No -Tunneling No -Undermining/Tunneling No -Circular Undermining No -Wound/Ulcer Outcome Not Healed -Offloading No -Debridement - Subq, 1st 20sq cm No [See Physician Procedure note for Specifics] Pain Scale: 0-10 Numeric [Pain] -Is Patient Pain Free? Yes JAYME - Nurse 3 - General Ulcer D/C NN Start: 07/31/20 08:33 Freq: Status: Active Protocol: Activity Type Activity Date Activity User E-Sign Co-Sign Detail Recorded Client Recorded Date Recorded By Document 08/14/20 09:28 DL [id number] 08/14/20 09:29 DL 08/14/20 09:28 Wound Care Nurse 3 [Wound Dressing] #1 Left Lateral LE -Foul Odor after Cleansing No -Other Dressing Theraskin - Recheck today only -Primary Dressing Covered/Secured Dry Gauze & with Roll Gauze, Secured with Tape [Compression Applied] Left -Other Tubigrip [Post Procedure Tolerated] -Treatment Response Procedure Tolerated Well Pain Scale: 0-10 Numeric [Pain] -Is Patient Pain Free? Yes WC - Visit Discharge [Visit Discharge Information] -Discharge Condition Stable -Ambulatory Status Ambulatory -Transportation Private Auto -Notes: Dressing applied per Rufina Dick today. Musculoskeletal: No Tenderness to Palpation of Joints or Extremities Neurological: Cranial nerves II-XII grossly intact Psych/Mental Status: Normal Affect, Appropriate Debridement Note Post-Debridement Measurements/Treatment - Nurse 2 - General Ulcer CM Notes Start: 07/31/20 08:33 Freq: Status: Active Protocol: Activity Type Activity Date Activity User E-Sign Co-Sign Detail Recorded Client Recorded Date Recorded By Document 07/31/20 08:57 [id number] 07/31/20 09:00 Document 08/07/20 09:18 [id number] 08/07/20 09:26 Document 08/14/20 09:12 [id number] 08/14/20 09:17 07/31/20 08/07/20 08/14/20 08:57 09:18 09:12 Wound Center Nurse 2 #1 Left Lateral LE -Time 09:23 -Correct Patient No Yes No -Correct Side, Site, Position No Yes No -Correct Procedure No Yes No -Procedure Performed No Yes No -Type of Procedure Debridement -Clinical Debridement Subcutaneous -Tissue Removed Subcutaneous -Post Debridement (cm) - Length 4 -Post Debridement (cm) - Width 3.6 -Post Debridement (cm) - Depth 0.1 -Total Square (Post) (cm) 14.4 -Area of Debridement (cm) - Length 4 -Area of Debridement (cm) - Width 3.6 -Total Square (Area) (cm) 14.4 -Tunneling No No No -Undermining/Tunneling No No No -Circular Undermining No No No -Wound/Ulcer Outcome Not Healed Not Healed Not Healed -Ulcer Cleansing Rinsed/ Irrigated with Saline -Foul Odor after Cleansing No -Bioengineered Tissue Yes -Type of Bioengineered Tissue Theraskin -Expiration Date 11/19/23 -Product Lot Number [id number] -Percent Used 100 -Lot number of Saline Used [id number] -Bleeding Controlled with Pressure -Offloading No No -Treatment Response Procedure Tolerated Well -Debridement - Subq, 1st 20sq cm No No -Apply Skin Sub - 1st 25 sq cm - Legs 1 -Theraskin (per sq cm) 13 Pain Scale: 0-10 Numeric Is Patient Pain Free? Yes Yes Yes - Nurse 3 - General Ulcer D/C NN Start: 07/31/20 08:33 Freq: Status: Active Protocol: Activity Type Activity Date Activity User E-Sign Co-Sign Detail Recorded Client Recorded Date Recorded By Document 07/31/20 09:05 BM [id number] 07/31/20 09:06 BM Document 08/07/20 09:38 KR [id number] 08/07/20 09:38 KR Document 08/14/20 09:28 DL [id number] 08/14/20 09:29 DL 07/31/20 08/07/20 08/14/20 09:05 09:38 09:28 Wound Care Nurse 3 #1 Left Lateral LE -Foul Odor after Cleansing No -Other Dressing Theraskin - Recheck today only -Primary Dressing Covered/Secured with Secured with Dry Gauze, Dry Gauze & Tape,Other Secured with Roll Gauze, Tape Secured with Tape -Other Covering theraskin intact, abd Left -Tubular Bandage Double Layer -Size of Tubigrip Used Size E -Size E ($) 1 -Other Tubigrip Treatment Response Procedure Procedure Tolerated Well Tolerated Well Vital Signs Blood Pressure (90/60-120/80) 159/71 H Blood Pressure Mean (mm Hg) 100 Source Monitor Position Sitting Blood Pressure Location Right Arm Pain Scale: 0-10 Numeric Is Patient Pain Free? Yes Yes Yes WC - Visit Discharge Discharge Condition Stable Stable Stable Ambulatory Status Ambulatory Ambulatory Ambulatory Transportation Private Auto Private Auto Private Auto Notes: Dressing applied per Rufina Dick today. Wound debrided: lateral leg ulcer Laterality: Left No debridement was completed today - Theraskin in place for another week, replaced wound veil. Assessment/Plan Active Problems Diabetic ulcer of lower leg (Chronic) Ulcer of left lower extremity with muscle involvement without evidence of necrosis (Chronic) Former smoker (Chronic) Type 2 diabetes mellitus (Chronic) Assessment: 1. 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 2. Diabetes mellitus. 3. History of Streptococcal infection. 4. Former smoker. Plan: Wound care - Theraskin #7 placed on left lateral leg ulcer last week. Wound veil replaced and secured by Steri-Strips. Covered with dry gauze. Left achilles ulcer remains healed. Double tubigrip for compression. Instructed him to replace the gauze dressing daily. Encouraged him to massage the left posterior ankle area with lotion daily. He may need to cover the heel area with gauze before placing compression. Wound culture obtained 04/17/20 which was positive for Klebsiella oxytoca, Enterobacter cloacae complex, Streptococcus agalactiae (B), Enterococcus faecalis, Bacteroides fragilis group, Prevotella melaninogenica, and Anaerobic cocci. He was started on Levaquin, Augmentin and a probiotic, which he has completed. His operative culture showed Staphylococcus aureus. He was discharged on Keflex and has finished them. His Prealbumin from 03/10/20 was 9.1. Encourage nutritional supplementation with protein to help the healing process. Discussed further operative intervention with debridement and skin grafting using an autograft. He wants to try the advanced skin substitute grafts first. Patient would like to increase his activity with his job. He may go to sites but is not to be climbing ladders or standing one position for long periods of time. It is ok for him to be walking. Follow up 1 week. Office Visits / Consults: [id number] OV L3 Est
[2020-08-21 08:48] VITALS: BP 161/98; PULSE 69; RESP 16; TEMP 34.9; BMI 33.8
--- NOTE | 2020-08-21 11:36 | PN.PCM_ITS ---
(1) Ulcer of left lower extremity with muscle involvement without evidence of necrosis Status: Chronic Code(s): L97.925 - Non-pressure chronic ulcer of unspecified part of left lower leg with muscle involvement without evidence of necrosis (2) Diabetic ulcer of lower leg Status: Chronic Code(s): E11.622 - Type 2 diabetes mellitus with other skin ulcer; L97.909 - Non-pressure chronic ulcer of unspecified part of unspecified lower leg with unspecified severity (3) Type 2 diabetes mellitus Status: Chronic Qualifiers: Code(s): E11.9 - Type 2 diabetes mellitus without complications (4) Former smoker Status: Chronic Code(s): Z87.891 - Personal history of nicotine dependence Type of Wound Date of Service: 08/21/20 Chief Complaint: Nonhealing diabetic abscess ulcer left lateral leg. History of Wound: Surgery 03/08/20 - Surgical preparation left lateral leg with incision and drainage and excisional debridement diabetic abscess (72 cm2). Wound care - Left lateral ulcer Theraskin #8 placed today. Left achilles wound remains healed. Wound culture obtained 04/17/20 which was positive for Klebsiella oxytoca, Enterobacter cloacae complex, Streptococcus agalactiae (B), Enterococcus faecalis, Bacteroides fragilis group, Prevotella melaninogenica, and Anaerobic cocci. He was started on Levaquin, Augmentin and a probiotic. Operative culture showed Staphylococcus aureus. He was discharged on Keflex and has finished them. Prealbumin on 03/10/20 was 9.1. Encouraged nutritional supplementation with protein to help the healing process. Today he denies fever. His appetite is good. Progress of Wound: Improved lateral leg ulcer. Left posterior ankle/achilles ulcer remains healed. - Physical Exam Vital Signs Temp Pulse Resp BP 94.9 F L 69 16 161/98 H 08/21/20 08:48 08/21/20 08:48 08/21/20 08:48 08/21/20 08:48 General: Alert, Oriented x3, Cooperative HEENT: Atraumatic Oral: Moist Mucosa Lungs: Normal air movement Cardiovascular: Regular rate Extremities: No edema, Capillary Refill Less than 3 Seconds Skin: Ulcer/ Wound - Left lateral leg ulcer is beefy pink. It is smaller than previous visit. Wound Measurements and Assessment WC - Nurse 1 - General Ulcer Measurement Start: 07/31/20 08:33 Freq: Status: Active Protocol: Activity Type Activity Date Activity User E-Sign Co-Sign Detail Recorded Client Recorded Date Recorded By Document 08/21/20 08:48 [id number] 08/21/20 08:50 08/21/20 08:48 Wound Center Nurse 1 [Ulcer Assessment] #1 Left Lateral LE -Combined with other wound No -Current Size (cm) - Length 3 -Current Size (cm) - Width 2.7 -Current Size (cm) - Depth 0.1 -Total Square Cm 8.1 -Photo Taken No -Epithelialization Medium 34-66% -Tunneling No -Undermining/Tunneling No -Circular Undermining No -Exudate Amt Medium -Exudate Type Serosanguineous -Wound Margin Flat & Intact -Granulation Amt Medium (34-66%) -Granulation Quality Red -Slough/Fibrin Yes -Necrosis Amt Medium (34-66%) -Necrotic Tissue Type Adherent Slough -Structure Exposed N/A -Texture (Radha-wound Skin Appearance) Assessed -Moisture (Radha-wound Skin Appearance Assessed ) -Color (Radha-wound Skin Appearance) Assessed, Hemosiderin Staining -Temperature (Radha-wound Skin No Abnormality Appearance) (Pt Warm) -Tenderness on Palpation (Radha-wound No Skin Appearance) -Ulcer Cleansing Wound Cleanser -Foul Odor after Cleansing No -Anesthetic Used 4% Lidocaine Solution [Edema Assessment] -Lower Limb Edema Present NA - Nurse 2 - General Ulcer CM Notes Start: 07/31/20 08:33 Freq: Status: Active Protocol: Activity Type Activity Date Activity User E-Sign Co-Sign Detail Recorded Client Recorded Date Recorded By Document 08/21/20 09:29 [id number] 08/21/20 09:33 08/21/20 09:29 Wound Center Nurse 2 [Procedure/Treatment] #1 Left Lateral LE -Time 09:31 -Correct Patient Yes -Correct Side, Site, Position Yes -Correct Procedure Yes -Procedure Performed Yes -Type of Procedure Debridement -Clinical Debridement Subcutaneous -Tissue Removed Subcutaneous -Post Debridement (cm) - Length 3.6 -Post Debridement (cm) - Width 3.3 -Post Debridement (cm) - Depth 0.1 -Total Square (Post) (cm) 11.88 -Area of Debridement (cm) - Length 3.6 -Area of Debridement (cm) - Width 3.3 -Total Square (Area) (cm) 11.88 -Tunneling No -Undermining/Tunneling No -Circular Undermining No -Wound/Ulcer Outcome Not Healed -Ulcer Cleansing Rinsed/ Irrigated with Saline -Foul Odor after Cleansing No -Bioengineered Tissue Yes -Type of Bioengineered Tissue Theraskin -Expiration Date 11/24/23 -Product Lot Number [id number] -Percent Used 100 -Lot number of Saline Used [id number] -Bleeding Controlled with Pressure -Offloading No -Treatment Response Procedure Tolerated Well -Debridement - Subq, 1st 20sq cm No -Apply Skin Sub - 1st 25 sq cm - Legs 1 -Theraskin (per sq cm) 13 [See Physician Procedure note for Specifics] Pain Scale: 0-10 Numeric [Pain] -Is Patient Pain Free? Yes - Nurse 3 - General Ulcer D/C NN Start: 07/31/20 08:33 Freq: Status: Active Protocol: Activity Type Activity Date Activity User E-Sign Co-Sign Detail Recorded Client Recorded Date Recorded By Document 08/21/20 09:45 DL [id number] 08/21/20 09:46 DL 08/21/20 09:45 Wound Care Nurse 3 [Wound Dressing] #1 Left Lateral LE -Foul Odor after Cleansing No -Other Dressing Theraskin -Primary Dressing Covered/Secured Dry Gauze & with Roll Gauze, Secured with Tape -Other Covering abd [Compression Applied] Left -Other tubigrip [Post Procedure Tolerated] -Treatment Response Procedure Tolerated Well Pain Scale: 0-10 Numeric [Pain] -Is Patient Pain Free? Yes - Visit Discharge [Visit Discharge Information] -Discharge Condition Stable -Ambulatory Status Ambulatory -Transportation Private Auto Musculoskeletal: No Tenderness to Palpation of Joints or Extremities Neurological: Cranial nerves II-XII grossly intact Psych/Mental Status: Normal Affect, Appropriate Debridement Note Post-Debridement Measurements/Treatment WC - Nurse 2 - General Ulcer CM Notes Start: 07/31/20 08:33 Freq: Status: Active Protocol: Activity Type Activity Date Activity User E-Sign Co-Sign Detail Recorded Client Recorded Date Recorded By Document 07/31/20 08:57 LADAN [id number] 07/31/20 09:00 Document 08/07/20 09:18 LADAN [id number] 08/07/20 09:26 Document 08/14/20 09:12 [id number] 08/14/20 09:17 Document 08/21/20 09:29 JF [id number] 08/21/20 09:33 JF 07/31/20 08/07/20 08/14/20 08:57 09:18 09:12 Wound Center Nurse 2 #1 Left Lateral LE -Time 09:23 -Correct Patient No Yes No -Correct Side, Site, Position No Yes No -Correct Procedure No Yes No -Procedure Performed No Yes No -Type of Procedure Debridement -Clinical Debridement Subcutaneous -Tissue Removed Subcutaneous -Post Debridement (cm) - Length 4 -Post Debridement (cm) - Width 3.6 -Post Debridement (cm) - Depth 0.1 -Total Square (Post) (cm) 14.4 -Area of Debridement (cm) - Length 4 -Area of Debridement (cm) - Width 3.6 -Total Square (Area) (cm) 14.4 -Tunneling No No No -Undermining/Tunneling No No No -Circular Undermining No No No -Wound/Ulcer Outcome Not Healed Not Healed Not Healed -Ulcer Cleansing Rinsed/ Irrigated with Saline -Foul Odor after Cleansing No -Bioengineered Tissue Yes -Type of Bioengineered Tissue Theraskin -Expiration Date 11/19/23 -Product Lot Number [id number] -Percent Used 100 -Lot number of Saline Used [id number] -Bleeding Controlled with Pressure -Offloading No No -Treatment Response Procedure Tolerated Well -Debridement - Subq, 1st 20sq cm No No -Apply Skin Sub - 1st 25 sq cm - Legs 1 -Theraskin (per sq cm) 13 Pain Scale: 0-10 Numeric Is Patient Pain Free? Yes Yes Yes 08/21/20 09:29 Wound Center Nurse 2 #1 Left Lateral LE -Time 09:31 -Correct Patient Yes -Correct Side, Site, Position Yes -Correct Procedure Yes -Procedure Performed Yes -Type of Procedure Debridement -Clinical Debridement Subcutaneous -Tissue Removed Subcutaneous -Post Debridement (cm) - Length 3.6 -Post Debridement (cm) - Width 3.3 -Post Debridement (cm) - Depth 0.1 -Total Square (Post) (cm) 11.88 -Area of Debridement (cm) - Length 3.6 -Area of Debridement (cm) - Width 3.3 -Total Square (Area) (cm) 11.88 -Tunneling No -Undermining/Tunneling No -Circular Undermining No -Wound/Ulcer Outcome Not Healed -Ulcer Cleansing Rinsed/ Irrigated with Saline -Foul Odor after Cleansing No -Bioengineered Tissue Yes -Type of Bioengineered Tissue Theraskin -Expiration Date 11/24/23 -Product Lot Number [id number] -Percent Used 100 -Lot number of Saline Used [id number] -Bleeding Controlled with Pressure -Offloading No -Treatment Response Procedure Tolerated Well -Debridement - Subq, 1st 20sq cm No -Apply Skin Sub - 1st 25 sq cm - Legs 1 -Theraskin (per sq cm) 13 Pain Scale: 0-10 Numeric Is Patient Pain Free? Yes - Nurse 3 - General Ulcer D/C NN Start: 07/31/20 08:33 Freq: Status: Active Protocol: Activity Type Activity Date Activity User E-Sign Co-Sign Detail Recorded Client Recorded Date Recorded By Document 07/31/20 09:05 [facility] [id number] 07/31/20 09:06 [facility] Document 08/07/20 09:38 KR [id number] 08/07/20 09:38 KR Document 08/14/20 09:28 DL [id number] 08/14/20 09:29 DL Document 08/21/20 09:45 DL [id number] 08/21/20 09:46 DL 07/31/20 08/07/20 08/14/20 09:05 09:38 09:28 Wound Care Nurse 3 #1 Left Lateral LE -Foul Odor after Cleansing No -Other Dressing Theraskin - Recheck today only -Primary Dressing Covered/Secured with Secured with Dry Gauze, Dry Gauze & Tape,Other Secured with Roll Gauze, Tape Secured with Tape -Other Covering theraskin intact, abd Left -Tubular Bandage Double Layer -Size of Tubigrip Used Size E -Size E ($) 1 -Other Tubigrip Treatment Response Procedure Procedure Tolerated Well Tolerated Well Vital Signs Blood Pressure (90/60-120/80) 159/71 H Blood Pressure Mean (mm Hg) 100 Source Monitor Position Sitting Blood Pressure Location Right Arm Pain Scale: 0-10 Numeric Is Patient Pain Free? Yes Yes Yes WC - Visit Discharge Discharge Condition Stable Stable Stable Ambulatory Status Ambulatory Ambulatory Ambulatory Transportation Private Auto Private Auto Private Auto Notes: Dressing applied per Rufina Dick today. 08/21/20 09:45 Wound Care Nurse 3 #1 Left Lateral LE -Foul Odor after Cleansing No -Other Dressing Theraskin -Primary Dressing Covered/Secured with Dry Gauze & Roll Gauze, Secured with Tape -Other Covering abd Left -Tubular Bandage -Size of Tubigrip Used -Size E ($) -Other tubigrip Treatment Response Procedure Tolerated Well Vital Signs Blood Pressure (90/60-120/80) Blood Pressure Mean (mm Hg) Source Position Blood Pressure Location Pain Scale: 0-10 Numeric Is Patient Pain Free? Yes WC - Visit Discharge Discharge Condition Stable Ambulatory Status Ambulatory Transportation Private Auto Notes: Wound debrided: lateral leg ulcer Laterality: Left Type of Debridement: Excisional debridement Anesthesia Used: 5% Lidocaine Gel Depth: Down to and including healthy tissue, in the subcutaneous layer Percentage of wound debrided: 100 Instrument Used: 5mm curette Tissue Removed: Subcutaneous tissue and slough Severity: Fat Layer Exposed Amount of bleeding with debridement: Mild Bleeding Controlled with: Pressure, Compression and gauze Patient tolerated procedure well Assessment/Plan Active Problems Diabetic ulcer of lower leg (Chronic) Ulcer of left lower extremity with muscle involvement without evidence of necrosis (Chronic) Former smoker (Chronic) Type 2 diabetes mellitus (Chronic) Assessment: 1. 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 2. Diab etes mellitus. 3. History of Streptococcal infection. 4. Former smoker. Plan: Wound care - Theraskin #8 placed on left lateral leg ulcer today. 90% of the product was used today. Product was secured with Dermabond and steri- strips. Covered with wound veil that was secured with steri-strips and then covered with dry gauze. Left achilles ulcer remains healed. Double tubigrip for compression. Instructed him to replace the gauze dressing daily. Encouraged him to massage the left posterior ankle area with lotion daily. He may need to cover the heel area with gauze before placing compression. Wound culture obtained 04/17/20 which was positive for Klebsiella oxytoca, Enterobacter cloacae complex, Streptococcus agalactiae (B), Enterococcus faecalis, Bacteroides fragilis group, Prevotella melaninogenica, and Anaerobic cocci. He was started on Levaquin, Augmentin and a probiotic, which he has completed. His operative culture showed Staphylococcus aureus. He was discharged on Keflex and has finished them. His Prealbumin from 03/10/20 was 9.1. Encourage nutritional supplementation with protein to help the healing process. Discussed further operative intervention with debridement and skin grafting using an autograft. He wants to try the advanced skin substitute grafts first. Patient would like to increase his activity with his job. He may go to sites but is not to be climbing ladders or standing one position for long periods of time. It is ok for him to be walking. Follow up 1 week. [id number]: [id number] Skin sub graft trnk/arm/leg
== END 2020-08-25 23:59 ==
LOC: WC 08:45
PROVIDERS: PCP Family Medicine; Referring Provider Surgery; Visit Provider Nurse Practitioner Family
DX: E11.622 Type 2 diabetes mellitus with other skin ulcer (principal); L97.822 Non-pressure chronic ulcer of other part of left lower leg with fat layer exposed; Z79.82 Long term (current) use of aspirin; Z79.4 Long term (current) use of insulin; Z79.899 Other long term (current) drug therapy; Z86.19 Personal history of other infectious and parasitic diseases; Z87.891 Personal history of nicotine dependence
CPT/HCPCS: 15271; 99213; Q4121; G0463

== ENCOUNTER → 2020-08-28 11:45 | Outpatient (CLI) | payer BC, MEDICAID, SELFPAY ==
[2020-08-28 08:48] VITALS: BMI 33.8
[2020-08-28 15:39] LABS: Anion Gap 7 (5-15); BUN 18 mg/dL (7-18); BUN/Creat Ratio 19.7 RATIO (10-20); Calcium,Total 8.9 mg/dL (8.5-10.1); Chloride 103 mmol/L (98-107); Cholesterol 123 mg/dL (200); Creatinine, Serum 0.91 mg/dL (0.70-1.30); EST Glomerular Filtration Rate 96 mL/min (>60); Est Glom Filt Rate - Afr Amer 116 mL/min (>60); Glucose 179 mg/dL (74-106); High Density Lipoprotein 50 mg/dL; Potassium 4.4 mmol/L (3.5-5.1); Sodium Level 137 mmol/L (136-145); Triglycerides 94 mg/dL; Very Low Density Lipoprotein 19 mg/dL (5-40)
== END ==
PROVIDERS: PCP Family Medicine; Visit Provider Family Medicine
DX: I10 Essential (primary) hypertension (principal)
CPT/HCPCS: 36415; 80048; 80061

== ENCOUNTER 2020-09-18 08:45 | Outpatient (RCR) | payer BC, MEDICAID, SELFPAY ==
[2020-08-26 00:38] VITALS: BP 161/98; PULSE 69; RESP 16; TEMP 34.9
[2020-08-28 08:48] VITALS: BP 153/88; PULSE 84; TEMP 36.2; BMI 33.8
--- NOTE | 2020-08-28 11:47 | PN.PCM_ITS ---
History of Present Illness Date of Service: 08/28/20 Chief Complaint: Nonhealing diabetic abscess ulcer left lateral leg. History of Wound: Surgery 03/08/20 - Surgical preparation left lateral leg with incision and drainage and excisional debridement diabetic abscess (72 cm2). Wound care - Left lateral ulcer Theraskin #8 placed last week. Left achilles wound remains healed. Wound culture obtained 04/17/20 which was positive for Klebsiella oxytoca, Enterobacter cloacae complex, Streptococcus agalactiae (B), Enterococcus faecalis, Bacteroides fragilis group, Prevotella melaninogenica, and Anaerobic cocci. He was started on Levaquin, Augmentin and a probiotic. Operative culture showed Staphylococcus aureus. He was discharged on Keflex and has finished them. Prealbumin on 03/10/20 was 9.1. Encouraged nutritional supplementation with protein to help the healing process. Today he denies fever. His appetite is good. Progress of Wound: Improved. Objective Data Objective Data Vital Signs: Vital Signs Temp Pulse Resp BP 97.2 F L 84 16 153/88 H 08/28/20 08:48 08/28/20 08:48 08/26/20 00:38 08/28/20 08:48 Weight: 615 lb 1.435 oz Body Mass Index (BMI) 33.8 Assessment & Plan Assessment/Plan (1) Ulcer of left lower extremity with muscle involvement without evidence of necrosis: Status: Chronic Code(s): L97.925 - Non-pressure chronic ulcer of unspecified part of left lower leg with muscle involvement without evidence of necrosis (2) Diabetic ulcer of lower leg: Status: Chronic Code(s): E11.622 - Type 2 diabetes mellitus with other skin ulcer; L97.909 - Non-pressure chronic ulcer of unspecified part of unspecified lower leg with unspecified severity (3) Abscess of left lower leg: Status: Acute Code(s): L02.416 - Cutaneous abscess of left lower limb (4) Former smoker: Status: Chronic Code(s): Z87.891 - Personal history of nicotine dependence Plan: Wound care -? Theraskin #8 placed on left lateral leg ulcer last week.? Changed wound veil that was secured with steri-strips and then covered with dry gauze.? Left achilles ulcer remains healed.? Double tubigrip for compression. Instructed him to replace the gauze dressing daily. Encouraged him to massage the left posterior ankle area with lotion daily.? He may need to cover the heel area with gauze before placing compression.? Wound culture obtained 04/17/20 which was positive for Klebsiella oxytoca, Enterobacter cloacae complex, Streptococcus agalactiae (B), Enterococcus faecalis, Bacteroides fragilis group, Prevotella melaninogenica, and Anaerobic cocci.? He was started on Levaquin, Augmentin and a probiotic, which he has completed.? His operative culture showed Staphylococcus aureus.? He was discharged on Keflex and has finished them.? His Prealbumin from 03/10/20 was 9.1.? Encourage nutritional supplementation with protein to help the healing process.? Discussed further operative intervention with debridement and skin grafting using an autograft.? He wants to try the advanced skin substitute grafts first.? Patient is back to work.? He is doing well.? He would like to start to be able to climb ladders, he will place a protective barrier (such as a thick dressing or loyola pad) on his left leg ulcer to prevent it from getting bumped.? Follow up 1 week. Charges/Coding Visit Charges Office Visits / Consults: [id number] OV L3 Est Physical Exam Const alert and oriented x3 General Appearance: cooperative HEENT normocephalic Head and Scalp: atraumatic Eyes PERRL Resp normal respiratory effort Cardio regular rate GI non-distended Extremity normal to inspection and normal capillary refill Skin Wound Narrative: Left lateral leg ulcer has Theraskin in place. Changed the wound veil. The wound bed looks beefy pink. Neuro CN's II-XII intact bilaterally Psych Appearance: grossly normal Debridement Note Debridement Note Post-Debridement Measurements and Additional Note: Post-Debridement Measurements/Treatment WC - Nurse 2 - General Ulcer CM Notes Start: 08/28/20 08:45 Freq: Status: Active Protocol: Activity Type Activity Date Activity User E-Sign Co-Sign Detail Recorded Client Recorded Date Recorded By Document 08/28/20 09:10 LADAN [id number] 08/28/20 09:13 LADAN 08/28/20 09:10 Wound Center Nurse 2 #1 Left Lateral LE -Correct Patient No -Correct Side, Site, Position No -Correct Procedure No -Procedure Performed No -Tunneling No -Undermining/Tunneling No -Circular Undermining No -Wound/Ulcer Outcome Not Healed -Bleeding Controlled with Pressure -Offloading No -Treatment Response Procedure Tolerated Well -Debridement - Subq, 1st 20sq cm No Pain Scale: 0-10 Numeric Is Patient Pain Free? Yes - Nurse 3 - General Ulcer D/C NN Start: 08/28/20 08:45 Freq: Status: Active Protocol: Activity Type Activity Date Activity User E-Sign Co-Sign Detail Recorded Client Recorded Date Recorded By Document 08/28/20 09:17 [facility] [id number] 08/28/20 09:20 [facility] 08/28/20 09:17 Wound Care Nurse 3 #1 Left Lateral LE -Primary Dressing Applied Other -Other Dressing theraskin -Primary Dressing Covered/Secured with Dry Gauze, Secured with Tape Left -Tubular Bandage Double Layer -Size of Tubigrip Used Size E -Size E ($) 1 Pain Scale: 0-10 Numeric Is Patient Pain Free? Yes WC - Visit Discharge Discharge Condition Stable Ambulatory Status Ambulatory Transportation Private Auto No debridement was completed: No debridement was completed today
[2020-09-04 08:46] VITALS: BP 182/95; PULSE 76; RESP 18; TEMP 36.6; BMI 33.8
--- NOTE | 2020-09-04 12:37 | PN.PCM_ITS ---
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 History of Wound: Surgery 03/08/20 - Surgical preparation left lateral leg with incision and drainage and excisional debridement diabetic abscess (72 cm2). Wound care - Left lateral ulcer Theraskin #8 placed last week. Left achilles wound remains healed. Wound culture obtained 04/17/20 which was positive for Klebsiella oxytoca, Enterobacter cloacae complex, Streptococcus agalactiae (B), Enterococcus faecalis, Bacteroides fragilis group, Prevotella melaninogenica, and Anaerobic cocci. He was started on Levaquin, Augmentin and a probiotic. Operative culture showed Staphylococcus aureus. He was discharged on Keflex and has finished them. Prealbumin on 03/10/20 was 9.1. Encouraged nutritional supplementation with protein to help the healing process. Today he denies fever. His appetite is good. Progress of Wound: Improved. Objective Data Objective Data Vital Signs: Vital Signs Temp Pulse Resp BP 97.9 F 76 18 182/95 H 09/04/20 08:46 09/04/20 08:46 09/04/20 08:46 09/04/20 08:46 Weight: 615 lb 1.435 oz Body Mass Index (BMI) 33.8 Debridement Note Debridement Note Post-Debridement Measurements and Additional Note: Post-Debridement Measurements/Treatment WC - Nurse 1 - General Ulcer Assessment Start: 08/28/20 08:45 Freq: Status: Active Protocol: [email or web address] Activity Type Activity Date Activity User E-Sign Co-Sign Detail Recorded Client Recorded Date Recorded By Document 08/28/20 08:48 DL [id number] 08/28/20 08:49 DL Document 09/04/20 08:46 DL [id number] 09/04/20 08:52 DL 08/28/20 09/04/20 08:48 08:46 WC - Today's Visit Information Type of service Follow-up Visit Follow-up Visit (Physician/MECHANICAL ESTIMATOR (Physician/MECHANICAL ESTIMATOR ) ) Arrival Mode Ambulatory Ambulatory Transfer Assistance None Patient Identification Verified (Name & Yes Yes ) Patient Requires Transmission-Based No Precautions Safety Precautions NA Finger Stick Blood Sugar(mg/dl) (if didnt check indicated): Blood Sugar Stated by Patient Height and Weight Body Mass Index (BMI) 33.8 33.8 BMI Classification Obese Obese Vital Signs Temperature (97.8 F-99.1 F) 97.2 F L 97.9 F Temperature Source Temporal Temporal Pulse Rate (60-100) 84 76 Pulse Location Monitor Monitor Respiratory Rate (12-18) 18 Respiratory rate source Observation Blood Pressure (90/60-120/80) 153/88 H 182/95 H Blood Pressure Mean (mm Hg) 109 124 Source Monitor Monitor Position Sitting Blood Pressure Location Right Arm History Since Last Visit- (Skip if this is Patient's initial visit) Have you changed medications since your No No last visit? Any new allergies or adverse reactions No No Had a fall/change in ADL's that may No No increase risk of falls Signs or symptoms of abuse and/or No No neglect since last visit Have you been in the hospital since your No No last visit? Has dressing in place as prescribed Yes Yes Has compression in place as prescribed N/A Yes Has offloadiing in place as prescribed N/A N/A Experienced any changes in pain level or No Yes management Left Footwear Regular Shoe Right Footwear Regular Shoe Pain Scale: 0-10 Numeric Is Patient Pain Free? Yes Yes WC - Nurse 1 - General Ulcer Measurement Start: 08/28/20 08:45 Freq: Status: Active Protocol: Activity Type Activity Date Activity User E-Sign Co-Sign Detail Recorded Client Recorded Date Recorded By Document 08/28/20 08:48 DL [id number] 08/28/20 08:49 DL Document 09/04/20 08:46 DL [id number] 09/04/20 08:52 DL Edit Result 09/04/20 08:46 DL (1) [id number] 09/04/20 08:53 DL (1) #1 Left Lateral LE - Granulation Quality [place] => Hyper-granulation, => [place] 08/28/20 09/04/20 08:48 08:46 Wound Center Nurse 1 #1 Left Lateral LE -Current Size (cm) - Length 0.1 2.2 -Current Size (cm) - Width 0.1 2.8 -Current Size (cm) - Depth 0.1 0.1 -Total Square Cm 0.01 6.16 -Photo Taken No -Exudate Amt Medium -Exudate Type Serosanguineous -Wound Margin Distinct, Outline Attached -Granulation Amt Small (1-33%) -Granulation Quality Hyper- granulation, [place] -Necrosis Amt Large (67-100%) -Necrotic Tissue Type Adherent Slough -Structure Exposed N/A -Texture (Radha-wound Skin Appearance) Scarring -Moisture (Radha-wound Skin Appearance) No Abnormality -Color (Rdaha-wound Skin Appearance) Rubor -Temperature (Radha-wound Skin No Abnormality Appearance) (Pt Warm) -Tenderness on Palpation (Radha-wound No Skin Appearance) -Ulcer Cleansing Wound Cleanser -Foul Odor after Cleansing No -Anesthetic Used 4% Lidocaine Solution Left Calf (cm) 39.5 Left Ankle (cm) 22 WC - Nurse 2 - General Ulcer CM Notes Start: 08/28/20 08:45 Freq: Status: Active Protocol: Activity Type Activity Date Activity User E-Sign Co-Sign Detail Recorded Client Recorded Date Recorded By Document 08/28/20 09:10 LADAN [id number] 08/28/20 09:13 JF Document 09/04/20 09:15 LADAN [id number] 09/04/20 09:19 JF 08/28/20 09/04/20 09:10 09:15 Wound Center Nurse 2 #1 Left Lateral LE -Time 09:17 -Correct Patient No Yes -Correct Side, Site, Position No Yes -Correct Procedure No Yes -Procedure Performed No Yes -Type of Procedure Debridement -Clinical Debridement Subcutaneous -Tissue Removed Subcutaneous -Post Debridement (cm) - Length 2.8 -Post Debridement (cm) - Width 2.3 -Post Debridement (cm) - Depth 0.1 -Total Square (Post) (cm) 6.44 -Area of Debridement (cm) - Length 2.8 -Area of Debridement (cm) - Width 2.3 -Total Square (Area) (cm) 6.44 -Tunneling No No -Undermining/Tunneling No No -Circular Undermining No No -Wound/Ulcer Outcome Not Healed Not Healed -Ulcer Cleansing Rinsed/ Irrigated with Saline -Foul Odor after Cleansing No -Bioengineered Tissue No -Bleeding Controlled with Pressure Pressure -Offloading No No -Treatment Response Procedure Procedure Tolerated Well Tolerated Well -Debridement - Subq, 1st 20sq cm No Yes Pain Scale: 0-10 Numeric Is Patient Pain Free? Yes Yes JAYME - Nurse 3 - General Ulcer D/C NN Start: 08/28/20 08:45 Freq: Status: Active Protocol: Activity Type Activity Date Activity User E-Sign Co-Sign Detail Recorded Client Recorded Date Recorded By Document 08/28/20 09:17 [facility] [id number] 08/28/20 09:20 BM Document 09/04/20 09:27 DL [id number] 09/04/20 09:29 DL 08/28/20 09/04/20 09:17 09:27 Wound Care Nurse 3 #1 Left Lateral LE -Ulcer Cleansing Rinsed/ Irrigated with Saline -Foul Odor after Cleansing No -Primary Dressing Applied Other Aquacel AG 4x4 -Other Dressing theraskin -Primary Dressing Covered/Secured with Dry Gauze, Dry Gauze & Secured with Roll Gauze, Tape Secured with Tape -Aquacel AG 4x4 1 Left -Tubular Bandage Double Layer -Size of Tubigrip Used Size E -Size E ($) 1 -Other tubigrip Treatment Response Procedure Tolerated Well Pain Scale: 0-10 Numeric Is Patient Pain Free? Yes Yes WC - Visit Discharge Discharge Condition Stable Stable Ambulatory Status Ambulatory Ambulatory Transportation Private Care[facility] Urgent [facility] Auto
--- NOTE | 2020-09-04 12:37 | PN.PCM_ITS ---
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 History of Wound: Surgery 03/08/20 - Surgical preparation left lateral leg with incision and drainage and excisional debridement diabetic abscess (72 cm2). Wound care - Left lateral ulcer Theraskin #8 placed Two weeks ago. Will take a break so he can shower daily, he will apply Aquacel- Ag daily covered by dry gauze. Left achilles wound remains healed. Wound culture obtained 04/17/20 which was positive for Klebsiella oxytoca, Enterobacter cloacae complex, Streptococcus agalactiae (B), Enterococcus faecalis, Bacteroides fragilis group, Prevotella melaninogenica, and Anaerobic cocci. He was started on Levaquin, Augmentin and a probiotic. Operative culture showed Staphylococcus aureus. He was discharged on Keflex and has finished them. Prealbumin on 03/10/20 was 9.1. Encouraged nutritional supplementation with protein to help the healing process. Today he denies fever. His appetite is good. Progress of Wound: Improved. 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 Theraskin #8 placed on left lateral leg ulcer two weeks ago.?Will take a break from the theraskin and allow him to shower daily and place Aquacel-Ag covered with dry gauze daily and as needed. Left achilles ulcer remains healed.? Double tubigrip for compression. Instructed him to replace the gauze dressing daily. Encouraged him to massage the left posterior ankle area with lotion daily.? He may need to cover the heel area with gauze before placing compression.? Wound culture obtained 04/17/20 which was positive for Klebsiella oxytoca, Enterobacter cloacae complex, Streptococcus agalactiae (B), Enterococcus faecalis, Bacteroides fragilis group, Prevotella melanin ogenica, and Anaerobic cocci.? He was started on Levaquin, Augmentin and a probiotic, which he has completed.? His operative culture showed Staphylococcus aureus.? He was discharged on Keflex and has finished them.? His Prealbumin from 03/10/20 was 9.1.? Encourage nutritional supplementation with protein to help the healing process.? Discussed further operative intervention with debridement and skin grafting using an autograft.? He wants to try the advanced skin substitute grafts first.? Patient is back to work.? He is doing well.? He would like to start to be able to climb ladders, he will place a protective barrier (such as a thick dressing or loyola pad) on his left leg ulcer to prevent it from getting bumped.? Follow up 2 weeks. Charges/Coding Procedures Integumentary [id number]: [id number] Neelima subq tissue 20 sq cm/< Physical Exam Const alert and oriented x3 General Appearance: cooperative HEENT normocephalic Head and Scalp: atraumatic Eyes PERRL Resp normal respiratory effort Cardio regular rate GI normal to inspection, nondistended, normoactive bowel sounds Extremity General Extremity: edema bilateral lower extremity Details: mild Skin Wound Narrative: Left lateral leg ulcer is beefy pink. Improving in size. Neuro CN's II-XII intact bilaterally Psych Appearance: grossly normal Thought Process: normal thought process Debridement Note Debridement Note Post-Debridement Measurements and Additional Note: Post-Debridement Measurements/Treatment - Nurse 1 - General Ulcer Assessment Start: 08/28/20 08:45 Freq: Status: Active Protocol: [email or web address].[email or web address] Activity Type Activity Date Activity User E-Sign Co-Sign Detail Recorded Client Recorded Date Recorded By Document 08/28/20 08:48 DL [id number] 08/28/20 08:49 DL Document 09/04/20 08:46 DL [id number] 09/04/20 08:52 DL 08/28/20 09/04/20 08:48 08:46 - Today's Visit Information Type of service Follow-up Visit Follow-up Visit (Physician/[facility]ARCH [facility] (Physician/[facility] ) ) Arrival Mode Ambulatory Ambulatory Transfer Assistance None Patient Identification Verified (Name & Yes Yes ) Patient Requires Transmission-Based No Precautions Safety Precautions NA Finger Stick Blood Sugar(mg/dl) (if didnt check indicated): Blood Sugar Stated by Patient Height and Weight Body Mass Index (BMI) 33.8 33.8 BMI Classification Obese Obese Vital Signs Temperature (97.8 F-99.1 F) 97.2 F L 97.9 F Temperature Source Temporal Temporal Pulse Rate (60-100) 84 76 Pulse Location Monitor Monitor Respiratory Rate (12-18) 18 Respiratory rate source Observation Blood Pressure (90/60-120/80) 153/88 H 182/95 H Blood Pressure Mean (mm Hg) 109 124 Source Monitor Monitor Position Sitting Blood Pressure Location Right Arm History Since Last Visit- (Skip if this is Patient's initial visit) Have you changed medications since your No No last visit? Any new allergies or adverse reactions No No Had a fall/change in ADL's that may No No increase risk of falls Signs or symptoms of abuse and/or No No neglect since last visit Have you been in the hospital since your No No last visit? Has dressing in place as prescribed Yes Yes Has compression in place as prescribed N/A Yes Has offloadiing in place as prescribed N/A N/A Experienced any changes in pain level or No Yes management Left Footwear Regular Shoe Right Footwear Regular Shoe Pain Scale: 0-10 Numeric Is Patient Pain Free? Yes Yes WC - Nurse 1 - General Ulcer Measurement Start: 08/28/20 08:45 Freq: Status: Active Protocol: Activity Type Activity Date Activity User E-Sign Co-Sign Detail Recorded Client Recorded Date Recorded By Document 08/28/20 08:48 DL [id number] 08/28/20 08:49 DL Document 09/04/20 08:46 DL [id number] 09/04/20 08:52 DL Edit Result 09/04/20 08:46 DL (1) [id number] 09/04/20 08:53 DL (1) #1 Left Lateral LE - Granulation Quality [place] => Hyper-granulation, => [place] 08/28/20 09/04/20 08:48 08:46 Wound Center Nurse 1 #1 Left Lateral LE -Current Size (cm) - Length 0.1 2.2 -Current Size (cm) - Width 0.1 2.8 -Current Size (cm) - Depth 0.1 0.1 -Total Square Cm 0.01 6.16 -Photo Taken No -Exudate Amt Medium -Exudate Type Serosanguineous -Wound Margin Distinct, Outline Attached -Granulation Amt Small (1-33%) -Granulation Quality Hyper- granulation, [place] -Necrosis Amt Large (67-100%) -Necrotic Tissue Type Adherent Slough -Structure Exposed N/A -Texture (Radha-wound Skin Appearance) Scarring -Moisture (Radha-wound Skin Appearance) No Abnormality -Color (Radha-wound Skin Appearance) Rubor -Temperature (Radha-wound Skin No Abnormality Appearance) (Pt Warm) -Tenderness on Palpation (Radha-wound No Skin Appearance) -Ulcer Cleansing Wound Cleanser -Foul Odor after Cleansing No -Anesthetic Used 4% Lidocaine Solution Left Calf (cm) 39.5 Left Ankle (cm) 22 WC - Nurse 2 - General Ulcer CM Notes Start: 08/28/20 08:45 Freq: Status: Active Protocol: Activity Type Activity Date Activity User E-Sign Co-Sign Detail Recorded Client Recorded Date Recorded By Document 08/28/20 09:10 JF [id number] 08/28/20 09:13 Document 09/04/20 09:15 [id number] 09/04/20 09:19 08/28/20 09/04/20 09:10 09:15 Wound Center Nurse 2 #1 Left Lateral LE -Time 09:17 -Correct Patient No Yes -Correct Side, Site, Position No Yes -Correct Procedure No Yes -Procedure Performed No Yes -Type of Procedure Debridement -Clinical Debridement Subcutaneous -Tissue Removed Subcutaneous -Post Debridement (cm) - Length 2.8 -Post Debridement (cm) - Width 2.3 -Post Debridement (cm) - Depth 0.1 -Total Square (Post) (cm) 6.44 -Area of Debridement (cm) - Length 2.8 -Area of Debridement (cm) - Width 2.3 -Total Square (Area) (cm) 6.44 -Tunneling No No -Undermining/Tunneling No No -Circular Undermining No No -Wound/Ulcer Outcome Not Healed Not Healed -Ulcer Cleansing Rinsed/ Irrigated with Saline -Foul Odor after Cleansing No -Bioengineered Tissue No -Bleeding Controlled with Pressure Pressure -Offloading No No -Treatment Response Procedure Procedure Tolerated Well Tolerated Well -Debridement - Subq, 1st 20sq cm No Yes Pain Scale: 0-10 Numeric Is Patient Pain Free? Yes Yes WC - Nurse 3 - General Ulcer D/C NN Start: 08/28/20 08:45 Freq: Status: Active Protocol: Activity Type Activity Date Activity User E-Sign Co-Sign Detail Recorded Client Recorded Date Recorded By Document 08/28/20 09:17 [facility] [id number] 08/28/20 09:20 BM Document 09/04/20 09:27 DL [id number] 09/04/20 09:29 DL 08/28/20 09/04/20 09:17 09:27 Wound Care Nurse 3 #1 Left Lateral LE -Ulcer Cleansing Rinsed/ Irrigated with Saline -Foul Odor after Cleansing No -Primary Dressing Applied Other Aquacel AG 4x4 -Other Dressing theraskin -Primary Dressing Covered/Secured with Dry Gauze, Dry Gauze & Secured with Roll Gauze, Tape Secured with Tape -Aquacel AG 4x4 1 Left -Tubular Bandage Double Layer -Size of Tubigrip Used Size E -Size E ($) 1 -Other tubigrip Treatment Response Procedure Tolerated Well Pain Scale: 0-10 Numeric Is Patient Pain Free? Yes Yes WC - Visit Discharge Discharge Condition Stable Stable Ambulatory Status Ambulatory Ambulatory Transportation Private Auto Private Auto Wound debrided: Left lateral leg ulcer Laterality: Left Type of Debridement: Excisional debridement Anesthesia Used: 5% Lidocaine Gel Depth: Down to and including healthy tissue and in the subcutaneous layer Percentage of wound debrided: 100 Instrument Used: 5mm curette Tissue Removed: Subcutaneous tissue and slough Severity: Fat Layer Exposed Amount of bleeding with debridement: Moderate Bleeding Controlled with: Pressure and Compression and gauze Patient tolerated procedure: Patient tolerated procedure well
[2020-09-18 08:45] VITALS: BP 157/94; PULSE 69; RESP 16; TEMP 36; BMI 33.8
--- NOTE | 2020-09-18 09:48 | PCM.WC.PN ---
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 History of Wound: Surgery 03/08/20 - Surgical preparation left lateral leg with incision and drainage and excisional debridement diabetic abscess (72 cm2). Wound care - Left lateral ulcer Theraskin #8 placed several weeks ago. Will take a break so he can shower daily, he will apply Aquacel- Ag daily covered by dry gauze. His insurance is reviewing if he is allowed to have the 2 remaining treatments of the Theraskin. Left achilles wound remains healed. Wound culture obtained 04/17/20 which was positive for Klebsiella oxytoca, Enterobacter cloacae complex, Streptococcus agalactiae (B), Enterococcus faecalis, Bacteroides fragilis group, Prevotella melaninogenica, and Anaerobic cocci. He was started on Levaquin, Augmentin and a probiotic. Operative culture showed Staphylococcus aureus. He was discharged on Keflex and has finished them. Prealbumin on 03/10/20 was 9.1. Encouraged nutritional supplementation with protein to help the healing process. Today he denies fever. His appetite is good. Progress of Wound: Left lateral let ulcer shows mild improvement. Wound bed is beefy pink. Objective Data Objective Data Vital Signs: Vital Signs Temp Pulse Resp BP 96.8 F L 69 16 157/94 H 09/18/20 08:45 09/18/20 08:45 09/18/20 08:45 09/18/20 08:45 Oxygen Delivery Method Room Air Weight: 615 lb 1.435 oz Body Mass Index (BMI) 33.8 Charges/Coding Procedures Integumentary 111xxx-113xx: 87330 Neelima subq tissue 20 sq cm/< Physical Exam Const alert and oriented x3 General Appearance: cooperative HEENT normocephalic Head and Scalp: atraumatic Eyes PERRL Resp normal respiratory effort Cardio regular rate and regular rhythm GI normal to inspection, nondistended, normoactive bowel sounds Extremity normal capillary refill and no calf tenderness Skin Wound Narrative: Left lateral leg ulcer is beefy pink wound bed. It appears smaller than last week. Good ROM of ankle. Neuro CN's II-XII intact bilaterally Psych Appearance: grossly normal Thought Process: normal thought process Debridement Note Debridement Note Post-Debridement Measurements and Additional Note: Post-Debridement Measurements/Treatment WC - Nurse 1 - General Ulcer Assessment Start: 08/28/20 08:45 Freq: Status: Active Protocol: WC.LOWEXT Activity Type Activity Date Activity User E-Sign Co-Sign Detail Recorded Client Recorded Date Recorded By Document 08/28/20 08:48 DL [id number] 08/28/20 08:49 DL Document 09/04/20 08:46 DL [id number] 09/04/20 08:52 DL Document 09/18/20 08:45 BMF [id number] 09/18/20 08:54 BMF 08/28/20 09/04/20 09/18/20 08:48 08:46 08:45 WC - Today's Visit Information Type of service Follow-up Visit Follow-up Visit Follow-up Visit (Physician/WIRE DRAWING MACHINE OPERATOR (Physician/WIRE DRAWING MACHINE OPERATOR (Physician/WIRE DRAWING MACHINE OPERATOR ) ) ) Arrival Mode Ambulatory Ambulatory Ambulatory Transfer Assistance None None Patient Identification Verified (Name & Yes Yes Yes ) Patient Requires Transmission-Based No No Precautions Safety Precautions NA Finger Stick Blood Sugar(mg/dl) (if didnt check indicated): Blood Sugar Stated by Patient Height and Weight Body Mass Index (BMI) 33.8 33.8 33.8 BMI Classification Obese Obese Obese Vital Signs Temperature (97.8 F-99.1 F) 97.2 F L 97.9 F 96.8 F L Temperature Source Temporal Temporal Temporal Pulse Rate (60-100) 84 76 69 Pulse Location Monitor Monitor Monitor Respiratory Rate (12-18) 18 16 Respiratory rate source Observation Observation Oxygen Delivery Method Room Air Blood Pressure (90/60-120/80) 153/88 H 182/95 H 157/94 H Blood Pressure Mean (mm Hg) 109 124 115 Source Monitor Monitor Monitor Position Sitting Sitting Blood Pressure Location Right Arm Left Arm History Since Last Visit- (Skip if this is Patient's initial visit) Have you changed medications since your No No No last visit? Any new allergies or adverse reactions No No No Had a fall/change in ADL's that may No No No increase risk of falls Signs or symptoms of abuse and/or No No No neglect since last visit Have you been in the hospital since your No No No last visit? Has dressing in place as prescribed Yes Yes Yes Has compression in place as prescribed N/A Yes Yes Has offloadiing in place as prescribed N/A N/A N/A Experienced any changes in pain level or No Yes No management Left Footwear Regular Shoe Regular Shoe Right Footwear Regular Shoe Regular Shoe Pain Scale: 0-10 Numeric Is Patient Pain Free? Yes Yes Yes WC - Nurse 1 - General Ulcer Measurement Start: 08/28/20 08:45 Freq: Status: Active Protocol: Activity Type Activity Date Activity User E-Sign Co-Sign Detail Recorded Client Recorded Date Recorded By Document 08/28/20 08:48 DL [id number] 08/28/20 08:49 DL Document 09/04/20 08:46 DL [id number] 09/04/20 08:52 DL Edit Result 09/04/20 08:46 DL (1) [id number] 09/04/20 08:53 DL Document 09/18/20 08:45 BMF [id number] 09/18/20 08:54 BMF (1) #1 Left Lateral LE - Granulation Quality [place] => Hyper-granulation, => [place] 08/28/20 09/04/20 09/18/20 08:48 08:46 08:45 Wound Center Nurse 1 #1 Left Lateral LE -Combined with other wound No -Current Size (cm) - Length 0.1 2.2 2.3 -Current Size (cm) - Width 0.1 2.8 1.7 -Current Size (cm) - Depth 0.1 0.1 0.1 -Total Square Cm 0.01 6.16 3.91 -Photo Taken No No -Epithelialization Small 1-33% -Tunneling No -Undermining/Tunneling No -Circular Undermining No -Exudate Amt Medium Medium -Exudate Type Serosanguineous Serosanguineous -Wound Margin Distinct, Distinct, Outline Outline Attached Attached -Granulation Amt Small (1-33%) Large (67-100%) -Granulation Quality Hyper- Red granulation, [place] -Slough/Fibrin Yes -Necrosis Amt Large (67-100%) Small (1-33%) -Necrotic Tissue Type Adherent Slough Adherent Slough -Structure Exposed N/A -Texture (Radha-wound Skin Appearance) Scarring Assessed, Scarring,Rash -Moisture (Radha-wound Skin Appearance) No Abnormality Assessed,Dry/ Scaly -Color (Radha-wound Skin Appearance) Rubor Assessed -Temperature (Radha-wound Skin No Abnormality No Abnormality Appearance) (Pt Warm) (Pt Warm) -Tenderness on Palpation (Radha-wound No No Skin Appearance) -Ulcer Cleansing Wound Cleanser Rinsed/ Irrigated with Saline -Foul Odor after Cleansing No No -Anesthetic Used 4% Lidocaine 5% Lidocaine Solution Gel Lower Limb Edema Present Yes Left Calf (cm) 39.5 40 Left Ankle (cm) 22 22.8 JAYME - Nurse 2 - General Ulcer CM Notes Start: 08/28/20 08:45 Freq: Status: Active Protocol: Activity Type Activity Date Activity User E-Sign Co-Sign Detail Recorded Client Recorded Date Recorded By Document 08/28/20 09:10 [id number] 08/28/20 09:13 Document 09/04/20 09:15 [id number] 09/04/20 09:19 JF Document 09/18/20 09:00 [id number] 09/18/20 09:04 08/28/20 09/04/20 09/18/20 09:10 09:15 09:00 Wound Center Nurse 2 #1 Left Lateral LE -Time 09:17 09:00 -Correct Patient No Yes Yes -Correct Side, Site, Position No Yes Yes -Correct Procedure No Yes Yes -Procedure Performed No Yes Yes -Type of Procedure Debridement Debridement -Clinical Debridement Subcutaneous Subcutaneous -Tissue Removed Subcutaneous Subcutaneous -Post Debridement (cm) - Length 2.8 2.4 -Post Debridement (cm) - Width 2.3 2.5 -Post Debridement (cm) - Depth 0.1 0.1 -Total Square (Post) (cm) 6.44 6.00 -Area of Debridement (cm) - Length 2.8 2.4 -Area of Debridement (cm) - Width 2.3 2.5 -Total Square (Area) (cm) 6.44 6.00 -Tunneling No No No -Undermining/Tunneling No No No -Circular Undermining No No No -Wound/Ulcer Outcome Not Healed Not Healed Not Healed -Ulcer Cleansing Rinsed/ Rinsed/ Irrigated with Irrigated with Saline Saline -Foul Odor after Cleansing No No -Bioengineered Tissue No No -Bleeding Controlled with Pressure Pressure Pressure -Offloading No No No -Treatment Response Procedure Procedure Procedure Tolerated Well Tolerated Well Tolerated Well -Debridement - Subq, 1st 20sq cm No Yes Yes Pain Scale: 0-10 Numeric Is Patient Pain Free? Yes Yes Yes JAYME - Nurse 3 - General Ulcer D/C NN Start: 08/28/20 08:45 Freq: Status: Active Protocol: Activity Type Activity Date Activity User E-Sign Co-Sign Detail Recorded Client Recorded Date Recorded By Document 08/28/20 09:17 [facility] [id number] 08/28/20 09:20 BM Document 09/04/20 09:27 DL [id number] 09/04/20 09:29 DL Document 09/18/20 09:15 [facility] [id number] 09/18/20 09:15 [facility] 08/28/20 09/04/20 09/18/20 09:17 09:27 09:15 Wound Care Nurse 3 #1 Left Lateral LE -Ulcer Cleansing Rinsed/ Rinsed/ Irrigated with Irrigated with Saline Saline -Foul Odor after Cleansing No No -Primary Dressing Applied Other Aquacel AG 4x4 Promogran Johana Matter -Other Dressing theraskin -Primary Dressing Covered/Secured with Dry Gauze, Dry Gauze & Dry Gauze, Secured with Roll Gauze, Secured with Tape Secured with Tape Tape -Aquacel AG 4x4 1 -Promogran Johana Matter 1 Left -Tubular Bandage Double Layer Double Layer -Size of Tubigrip Used Size E Size D -Size D ($) 2 -Size E ($) 1 -Other tubigrip Treatment Response Procedure Procedure Tolerated Well Tolerated Well Pain Scale: 0-10 Numeric Is Patient Pain Free? Yes Yes Yes WC - Visit Discharge Discharge Condition Stable Stable Stable Ambulatory Status Ambulatory Ambulatory Ambulatory Transportation Private Auto Private Auto [facility] Facility Type Home Health Wound debrided: Lateral leg ulcer Laterality: Left Type of Debridement: Excisional debridement Anesthesia Used: 5% Lidocaine Gel Depth: Down to and including healthy tissue and in the subcutaneous layer Percentage of wound debrided: 100 Instrument Used: 5mm curette Tissue Removed: Subcutaneous tissue and slough Severity: Fat Layer Exposed Amount of bleeding with debridement: Mild Bleeding Controlled with: Pressure and Compression and gauze Patient tolerated procedure: Patient tolerated procedure well Assessment/Plan Assessment/Plan (1) Ulcer of left lower extremity with muscle involvement without evidence of necrosis: CODE(S): L97.925 - Non-pressure chronic ulcer of unspecified part of left lower leg with muscle involvement without evidence of necrosis (2) Diabetic ulcer of lower leg: CODE(S): E11.622 - Type 2 diabetes mellitus with other skin ulcer; L97.909 - Non-pressure chronic ulcer of unspecified part of unspecified lower leg with unspecified severity (3) Type 2 diabetes mellitus: CODE(S): E11.9 - Type 2 diabetes mellitus without complications QUALIFIERS: Qualified Code(s): Z79.4 - alf (current) use of insulin (4) Former smoker: CODE(S): Z87.891 - Personal history of nicotine dependence PLAN: Wound care -? Theraskin #8 placed on left lateral leg ulcer several weeks ago.?Will take a break from the theraskin and allow him to shower daily and place Aquacel-Ag covered with dry gauze daily and as needed.?Awaiting for his insurance to approve his final two treatments. Left achilles ulcer remains healed.? Double tubigrip for compression. Encouraged him to massage the left posterior ankle area with lotion daily.? He may need to cover the heel area with gauze before placing compression.? Wound culture obtained 04/17/20 which was positive for Klebsiella oxytoca, Enterobacter cloacae complex, Streptococcus agalactiae (B), Enterococcus faecalis, Bacteroides fragilis group, Prevotella melaninogenica, and Anaerobic cocci.? He was started on Levaquin, Augmentin and a probiotic, which he has completed.? His operative culture showed Staphylococcus aureus.? He was discharged on Keflex and has finished them.? His Prealbumin from 03/10/20 was 9.1.? Encourage nutritional supplementation with protein to help the healing process.? Discussed further operative intervention with debridement and skin grafting using an autograft.? He wants to try the advanced skin substitute grafts first.? Patient is back to work.? He is doing well.? He would like to start to be able to climb ladders, he will place a protective barrier (such as a thick dressing or loyola pad) on his left leg ulcer to prevent it from getting bumped.? Follow up 2 weeks.
== END 2020-09-25 23:59 ==
LOC: WC 08:45
PROVIDERS: PCP Family Medicine; Referring Provider Surgery; Visit Provider Nurse Practitioner Family
DX: E11.622 Type 2 diabetes mellitus with other skin ulcer (principal); L97.822 Non-pressure chronic ulcer of other part of left lower leg with fat layer exposed; L02.416 Cutaneous abscess of left lower limb; Z79.4 Long term (current) use of insulin; Z79.82 Long term (current) use of aspirin; Z79.899 Other long term (current) drug therapy; Z86.19 Personal history of other infectious and parasitic diseases; Z87.891 Personal history of nicotine dependence
CPT/HCPCS: 11042; 99213; G0463

== ENCOUNTER 2020-10-16 08:30 | Outpatient (RCR) | payer BC, MEDICAID, SELFPAY ==
[2020-09-26 00:24] VITALS: BP 157/94; PULSE 69; RESP 16; TEMP 36
[2020-10-09 08:34] VITALS: BP 166/92; PULSE 69; TEMP 35.7; BMI 33.8
--- NOTE | 2020-10-09 10:18 | PN.PCM_ITS ---
History of Present Illness Date of Service: 10/09/20 Chief Complaint: Nonhealing diabetic abscess ulcer left lateral leg. History of Wound: Surgery 03/08/20 - Surgical preparation left lateral leg with incision and drainage and excisional debridement diabetic abscess (72 cm2). Wound care - Left lateral ulcer Theraskin #8 placed. We took a break because his insurance is reviewing if he is allowed to have the 2 remaining treatments of the Theraskin. He is placing moistened Johana to the ulcer covered by gauze daily. Left achilles wound remains healed. Wound culture obtained 04/17/20 which was positive for Klebsiella oxytoca, Enterobacter cloacae complex, Streptococcus agalactiae (B), Enterococcus faecalis, Bacteroides fragilis group, Prevotella melaninogenica, and Anaerobic cocci. He was started on Levaquin, Augmentin and a probiotic. Operative culture showed Staphylococcus aureus. He was discharged on Keflex and has finished them. Prealbumin on 03/10/20 was 9.1. Encouraged nutritional supplementation with protein to help the healing process. Today he denies fever. His appetite is good. Progress of Wound: Improved. Subjective Subjective Patient denies any complaints of pain or issues with wound care. Objective Data Objective Data Vital Signs: Vital Signs Temp Pulse Resp BP 96.3 F L 69 16 166/92 H 10/09/20 08:34 10/09/20 08:34 09/26/20 00:24 10/09/20 08:34 Weight: 615 lb 1.435 oz Body Mass Index (BMI) 33.8 Charges/Coding Procedures Integumentary 111xxx-113xx: 18421 Neelima subq tissue 20 sq cm/< Physical Exam Const alert and oriented x3 General Appearance: cooperative HEENT normocephalic Head and Scalp: atraumatic Eyes PERRL Lymph Lymphatic: no lymphedema noted Resp normal respiratory effort Cardio regular rate GI non-distended Extremity normal capillary refill and no calf tenderness Extremity Narrative: Left leg with minimal edema. Skin Wound Narrative: Left lateral leg ulcer is beefy pink. Dry scabbing surrounding the ulcer removed with debridement. Neuro CN's II-XII intact bilaterally Psych Appearance: grossly normal Thought Process: normal thought process Debridement Note Debridement Note Post-Debridement Measurements and Additional Note: Post-Debridement Measurements/Treatment WC - Nurse 1 - General Ulcer Assessment Start: 10/09/20 08:34 Freq: Status: Active Protocol: [id number] Activity Type Activity Date Activity User E-Sign Co-Sign Detail Recorded Client Recorded Date Recorded By Document 10/09/20 08:34 NATALI [id number] 10/09/20 08:37 NATALI 10/09/20 08:34 - Today's Visit Information Type of service Initial Visit Arrival Mode Ambulatory Patient Identification Verified (Name & Yes ) Height and Weight Body Mass Index (BMI) 33.8 BMI Classification Obese Vital Signs Temperature (97.8 F-99.1 F) 96.3 F L Temperature Source Temporal Pulse Rate (60-100) 69 Pulse Location Monitor Blood Pressure (90/60-120/80) 166/92 H Blood Pressure Mean (mm Hg) 116 Source Monitor Position Semi-Fowlers Blood Pressure Location Right Arm History Since Last Visit- (Skip if this is Patient's initial visit) Have you changed medications since your No last visit? Any new allergies or adverse reactions No Had a fall/change in ADL's that may No increase risk of falls Signs or symptoms of abuse and/or No neglect since last visit Have you been in the hospital since your No last visit? Has dressing in place as prescribed Yes Has compression in place as prescribed N/A Has offloadiing in place as prescribed N/A Experienced any changes in pain level or No management Left Footwear Regular Shoe Right Footwear Regular Shoe Pain Scale: 0-10 Numeric Is Patient Pain Free? Yes - Nurse 1 - General Ulcer Measurement Start: 10/09/20 08:34 Freq: Status: Active Protocol: Activity Type Activity Date Activity User E-Sign Co-Sign Detail Recorded Client Recorded Date Recorded By Document 10/09/20 08:34 KR [id number] 10/09/20 08:37 NATALI 10/09/20 08:34 Wound Center Nurse 1 #1 Left Lateral LE -Current Size (cm) - Length 1.9 -Current Size (cm) - Width 1.8 -Current Size (cm) - Depth 0.1 -Total Square Cm 3.42 -Exudate Amt Small -Exudate Type Serosanguineous -Wound Margin Distinct, Outline Attached -Granulation Amt Medium (34-66%) -Granulation Quality Red -Necrosis Amt None Present (0 %) -Texture (Radha-wound Skin Appearance) Assessed, Scarring -Moisture (Radha-wound Skin Appearance) No Abnormality, Assessed -Color (Radha-wound Skin Appearance) No Abnormality, Assessed -Temperature (Radha-wound Skin No Abnormality Appearance) (Pt Warm) -Tenderness on Palpation (Radha-wound No Skin Appearance) -Ulcer Cleansing Rinsed/ Irrigated with Saline -Foul Odor after Cleansing No -Anesthetic Used 4% Lidocaine Solution - Nurse 2 - General Ulcer CM Notes Start: 10/09/20 08:34 Freq: Status: Active Protocol: Activity Type Activity Date Activity User E-Sign Co-Sign Detail Recorded Client Recorded Date Recorded By Document 10/09/20 09:47 PL [id number] 10/09/20 09:48 PL 10/09/20 09:47 Wound Center Nurse 2 -Time 08:46 -Correct Patient Yes -Correct Side, Site, Position Yes -Correct Procedure Yes -Procedure Performed Yes -Type of Procedure Debridement -Clinical Debridement Subcutaneous -Tissue Removed Subcutaneous -Post Debridement (cm) - Length 2.5 -Post Debridement (cm) - Width 2.0 -Post Debridement (cm) - Depth 0.1 -Total Square (Post) (cm) 5.00 -Area of Debridement (cm) - Length 2.5 -Area of Debridement (cm) - Width 2.0 -Total Square (Area) (cm) 5.00 -Tunneling No -Undermining/Tunneling No -Circular Undermining No -Wound/Ulcer Outcome Not Healed -Ulcer Cleansing Rinsed/ Irrigated with Saline -Foul Odor after Cleansing No -Bioengineered Tissue No -Debridement - Subq, 1st 20sq cm Yes Pain Scale: 0-10 Numeric Is Patient Pain Free? Yes - Nurse 3 - General Ulcer D/C NN Start: 10/09/20 08:34 Freq: Status: Active Protocol: Activity Type Activity Date Activity User E-Sign Co-Sign Detail Recorded Client Recorded Date Recorded By Document 10/09/20 08:57 KR [id number] 10/09/20 08:58 KR 10/09/20 08:57 Wound Care Nurse 3 #1 Left Lateral LE -Ulcer Cleansing Rinsed/ Irrigated with Saline -Primary Dressing Applied Promogran Johana Matter -Primary Dressing Covered/Secured with Dry Gauze,Dry Gauze & Roll Gauze,Secured with Tape -Promogran Johana Matter 1 Pain Scale: 0-10 Numeric Is Patient Pain Free? Yes WC - Visit Discharge Discharge Condition Stable Ambulatory Status Ambulatory Transportation Private Auto Wound debrided: Lateral leg ulcer Laterality: Left Type of Debridement: Excisional debridement Anesthesia Used: 4% Lidocaine Solution and 5% Lidocaine Gel Depth: Down to and including healthy tissue and in the subcutaneous layer Percentage of wound debrided: 100 Instrument Used: 3mm curette Tissue Removed: Subcutaneous tissue and slough Severity: Fat Layer Exposed Bleeding Controlled with: Compression and gauze Patient tolerated procedure: Patient tolerated procedure well Assessment/Plan Assessment/Plan (1) Ulcer of left lower extremity with muscle involvement without evidence of necrosis: CODE(S): L97.925 - Non-pressure chronic ulcer of unspecified part of left lower leg with muscle involvement without evidence of necrosis (2) Diabetic ulcer of lower leg: CODE(S): E11.622 - Type 2 diabetes mellitus with other skin ulcer; L97.909 - Non-pressure chronic ulcer of unspecified part of unspecified lower leg with unspecified severity (3) Type 2 diabetes mellitus: CODE(S): E11.9 - Type 2 diabetes mellitus without complications QUALIFIERS: Qualified Code(s): Z79.4 - residential (current) use of insulin (4) Former smoker: CODE(S): Z87.891 - Personal history of nicotine dependence PLAN: Wound care - Theraskin #8 placed on left lateral leg ulcer. We took a break from the theraskin while waiting for his insurance to approve his final two treatments. Left achilles ulcer remains healed. Wound care is moistened Johana daily covered by gauze. Double tubigrip for compression. Encouraged him to massage the left posterior ankle area with lotion daily. He may need to cover the heel area with gauze before placing compression. Wound culture obtained 04/17/20 which was positive for Klebsiella oxytoca, Enterobacter cloacae complex, Streptococcus agalactiae (B), Enterococcus faecalis, Bacteroides fragilis group, Prevotella melaninogenica, and Anaerobic cocci. He was started on Levaquin, Augmentin and a probiotic, which he has completed. His operative culture showed Staphylococcus aureus. He was discharged on Keflex and has finished them. His Prealbumin from 03/10/20 was 9.1. Encourage nutritional supplementation with protein to help the healing process. Discussed further operative intervention with debridement and skin grafting using an autograft. He wants to try the advanced skin substitute grafts first. Patient is back to work. He is doing well with no restrictions. Follow up one week.
[2020-10-16 08:34] VITALS: BP 140/85; PULSE 79; RESP 20; TEMP 36.4; BMI 33.8
--- NOTE | 2020-10-16 10:04 | PCM.WC.PN ---
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 History of Wound: Surgery 03/08/20 - Surgical preparation left lateral leg with incision and drainage and excisional debridement diabetic abscess (72 cm2). Wound care - Left lateral ulcer Theraskin #8 placed. We took a break because his insurance is reviewing if he is allowed to have the 2 remaining treatments of the Theraskin. He is placing moistened Johana to the ulcer covered by gauze daily. Left achilles wound remains healed. Wound culture obtained 04/17/20 which was positive for Klebsiella oxytoca, Enterobacter cloacae complex, Streptococcus agalactiae (B), Enterococcus faecalis, Bacteroides fragilis group, Prevotella melaninogenica, and Anaerobic cocci. He was started on Levaquin, Augmentin and a probiotic. Operative culture showed Staphylococcus aureus. He was discharged on Keflex and has finished them. Prealbumin on 03/10/20 was 9.1. Encouraged nutritional supplementation with protein to help the healing process. Today he denies fever. His appetite is good. Progress of Wound: Improved. Objective Data Objective Data Vital Signs: Vital Signs Temp Pulse Resp BP 97.6 F L 79 20 H 140/85 H 10/16/20 08:34 10/16/20 08:34 10/16/20 08:34 10/16/20 08:34 Weight: 615 lb 1.435 oz Body Mass Index (BMI) 33.8 Charges/Coding Procedures Integumentary 111xxx-113xx: 20290 Neelima subq tissue 20 sq cm/< Physical Exam Const alert and oriented x3 General Appearance: cooperative HEENT normocephalic Head and Scalp: atraumatic Eyes PERRL Lymph Lymphatic: no lymphedema noted Resp normal respiratory effort Cardio regular rate GI normal to inspection, nondistended, normoactive bowel sounds Extremity normal capillary refill and no calf tenderness Skin Wound Narrative: Left lateral leg ulcer has more irritation and erythema surrounding the ulcer. 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 ) Arrival Mode Ambulatory Ambulatory Transfer Assistance None Patient Identification Verified (Name & Yes Yes ) Patient Requires Transmission-Based No Precautions Safety Precautions NA Finger Stick Blood Sugar(mg/dl) (if 143 indicated): Blood Sugar Stated by Patient Height and Weight Body Mass Index (BMI) 33.8 33.8 BMI Classification Obese Obese Vital Signs Temperature (97.8 F-99.1 F) 96.3 F L 97.6 F L Temperature Source Temporal Temporal Pulse Rate (60-100) 69 79 Pulse Location Monitor Monitor Respiratory Rate (12-18) 20 H Respiratory rate source Observation Blood Pressure (90/60-120/80) 166/92 H 140/85 H Blood Pressure Mean (mm Hg) 116 103 Source Monitor Monitor Position Semi-Fowlers Blood Pressure Location Right Arm History Since Last Visit- (Skip if this is Patient's initial visit) Have you changed medications since your No No last visit? Any new allergies or adverse reactions No No Had a fall/change in ADL's that may No No increase risk of falls Signs or symptoms of abuse and/or No No neglect since last visit Have you been in the hospital since your No No last visit? Has dressing in place as prescribed Yes Yes Has compression in place as prescribed N/A Yes Has offloadiing in place as prescribed N/A N/A Experienced any changes in pain level or No No management Left Footwear Regular Shoe Right Footwear Regular Shoe Pain Scale: 0-10 Numeric Is Patient Pain Free? Yes Yes - Nurse 1 - General Ulcer Measurement Start: 10/09/20 08:34 Freq: Status: Active Protocol: Activity Type Activity Date Activity User E-Sign Co-Sign Detail Recorded Client Recorded Date Recorded By Document 10/09/20 08:34 KR [id number] 10/09/20 08:37 KR Document 10/16/20 08:34 DL [id number] 10/16/20 08:44 DL 10/09/20 10/16/20 08:34 08:34 Wound Center Nurse 1 #1 Left Lateral LE -Current Size (cm) - Length 1.9 2.8 -Current Size (cm) - Width 1.8 1.3 -Current Size (cm) - Depth 0.1 0.1 -Total Square Cm 3.42 3.64 -Photo Taken No -Exudate Amt Small Small -Exudate Type Serosanguineous Serosanguineous -Wound Margin Distinct, Distinct, Outline Outline Attached Attached -Granulation Amt Medium (34-66%) Medium (34-66%) -Granulation Quality [place] -Necrosis Amt None Present (0 Medium (34-66%) %) -Necrotic Tissue Type Adherent Slough -Structure Exposed N/A -Texture (Radha-wound Skin Appearance) Assessed, Excoriation, Scarring Scarring -Moisture (Radha-wound Skin Appearance) No Abnormality, No Abnormality Assessed -Color (Radha-wound Skin Appearance) No Abnormality, No Abnormality Assessed -Temperature (Radha-wound Skin No Abnormality No Abnormality Appearance) (Pt Warm) (Pt Warm) -Tenderness on Palpation (Radha-wound No No Skin Appearance) -Ulcer Cleansing Rinsed/ Wound Cleanser Irrigated with Saline -Foul Odor after Cleansing No No -Anesthetic Used 4% Lidocaine 4% Lidocaine Solution Solution Left Calf (cm) 39 Left Ankle (cm) 22.2 - Nurse 2 - General Ulcer CM Notes Start: 10/09/20 08:34 Freq: Status: Active Protocol: Activity Type Activity Date Activity User E-Sign Co-Sign Detail Recorded Client Recorded Date Recorded By Document 10/09/20 09:47 PL [id number] 10/09/20 09:48 PL Document 10/16/20 08:57 [id number] 10/16/20 09:04 10/09/20 10/16/20 09:47 08:57 Wound Center Nurse 2 #1 Left Lateral LE -Time 08:46 08:57 -Correct Patient Yes Yes -Correct Side, Site, Position Yes Yes -Correct Procedure Yes Yes -Procedure Performed Yes Yes -Type of Procedure Debridement Debridement -Clinical Debridement Subcutaneous Subcutaneous -Tissue Removed Subcutaneous Subcutaneous -Post Debridement (cm) - Length 2.5 2.8 -Post Debridement (cm) - Width 2.0 2.3 -Post Debridement (cm) - Depth 0.1 0.2 -Total Square (Post) (cm) 5.00 6.44 -Area of Debridement (cm) - Length 2.5 2.8 -Area of Debridement (cm) - Width 2.0 2.3 -Total Square (Area) (cm) 5.00 6.44 -Tunneling No No -Undermining/Tunneling No No -Circular Undermining No No -Wound/Ulcer Outcome Not Healed Not Healed -Ulcer Cleansing Rinsed/ Rinsed/ Irrigated with Irrigated with Saline Saline -Foul Odor after Cleansing No No -Bioengineered Tissue No No -Bleeding Controlled with Pressure -Offloading No -Treatment Response Procedure Tolerated Well -Debridement - Subq, 1st 20sq cm Yes Yes Pain Scale: 0-10 Numeric Is Patient Pain Free? Yes Yes - Nurse 3 - General Ulcer D/C NN Start: 10/09/20 08:34 Freq: Status: Active Protocol: Activity Type Activity Date Activity User E-Sign Co-Sign Detail Recorded Client Recorded Date Recorded By Document 10/09/20 08:57 [id number] 10/09/20 08:58 Document 10/16/20 09:10 [facility] [id number] 10/16/20 09:11 [facility] 10/09/20 10/16/20 08:57 09:10 Wound Care Nurse 3 #1 Left Lateral LE -Ulcer Cleansing Rinsed/ Rinsed/ Irrigated with Irrigated with Saline Saline -Foul Odor after Cleansing No -Primary Dressing Applied Promogran C Hydrogel ($), Johana Matter NonAdherent Contact Layer -Primary Dressing Covered/Secured with Dry Gauze,Dry Dry Gauze, Gauze & Roll Secured with Gauze,Secured Tape with Tape -Promogran Johana Matter 1 Treatment Response Procedure Tolerated Well Pain Scale: 0-10 Numeric Is Patient Pain Free? Yes Yes - Visit Discharge Discharge Condition Stable Stable Ambulatory Status Ambulatory Ambulatory Transportation Private Auto Private Auto Facility Type Home Health Wound debrided: lateral leg ulcer Laterality: Left Type of Debridement: Excisional debridement Anesthesia Used: 5% Lidocaine Gel Depth: Down to and including healthy tissue and in the subcutaneous layer Percentage of wound debrided: 100 Instrument Used: 5mm curette Tissue Removed: Subcutaneous tissue and slough Severity: Fat Layer Exposed Amount of bleeding with debridement: Mild Bleeding Controlled with: Pressure Patient tolerated procedure: Patient tolerated procedure well Assessment/Plan Assessment/Plan (1) Ulcer of left lower extremity with muscle involvement without evidence of necrosis: CODE(S): L97.925 - Non-pressure chronic ulcer of unspecified part of left lower leg with muscle involvement without evidence of necrosis (2) Diabetic ulcer of lower leg: CODE(S): E11.622 - Type 2 diabetes mellitus with other skin ulcer; L97.909 - Non-pressure chronic ulcer of unspecified part of unspecified lower leg with unspecified severity (3) Type 2 diabetes mellitus: CODE(S): E11.9 - Type 2 diabetes mellitus without complications QUALIFIERS: Qualified Code(s): 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 We took a break from the theraskin while waiting for his insurance to approve his final two treatments. Left achilles ulcer remains healed. Wound care will start collagen hydrogel covered by adaptic daily covered by gauze. Double tubigrip for compression. Encouraged him to massage the left posterior ankle area with lotion daily. He may need to cover the heel area with gauze before placing compression. Wound culture obtained today, 10/16/20 due to the irritation and increased discomfort he is having. Depending on the results of the culture, it may necessitate the need for treatment with antibiotics. Wound culture obtained 04/17/20 which was positive for Klebsiella oxytoca, Enterobacter cloacae complex, Streptococcus agalactiae (B), Enterococcus faecalis, Bacteroides fragilis group, Prevotella melaninogenica, and Anaerobic cocci. He was started on Levaquin, Augmentin and a probiotic, which he has completed. His operative culture showed Staphylococcus aureus. He was discharged on Keflex and has finished them. His Prealbumin from 03/10/20 was 9.1. Encourage nutritional supplementation with protein to help the healing process. Discussed further operative intervention with debridement and skin grafting using an autograft. He wants to try the advanced skin substitute grafts first. Patient is back to work. He is doing well with no restrictions. Encouraged him to wear soft loyola guards while at work so he isn't causing more trauma to his shins bilaterally from the ladders. Follow up 3 weeks due to me being on vacation and then the October 29 holiday.
== END 2020-10-25 23:59 ==
LOC: WC 08:30
PROVIDERS: PCP Family Medicine; Referring Provider Surgery; Visit Provider Nurse Practitioner Family
DX: E11.622 Type 2 diabetes mellitus with other skin ulcer (principal); L97.825 Non-pressure chronic ulcer of other part of left lower leg with muscle involvement without evidence of necrosis; L02.416 Cutaneous abscess of left lower limb; E66.9 Obesity, unspecified; Z68.33 Body mass index [BMI] 33.0-33.9, adult; Z79.82 Long term (current) use of aspirin; Z79.4 Long term (current) use of insulin; Z79.02 Long term (current) use of antithrombotics/antiplatelets; Z79.899 Other long term (current) drug therapy; Z87.891 Personal history of nicotine dependence; Z86.19 Personal history of other infectious and parasitic diseases
CPT/HCPCS: 11042; 87070; 87075; 87077; 87186; 87205

== ENCOUNTER 2020-10-25 08:07 | Emergency (ER) | payer BC, MEDICAID, SELFPAY ==
[2020-10-25 08:08] VITALS: BP 156/81; PULSE 75; RESP 16; TEMP 36; O2SAT 100; BMI 34.2
--- NOTE | 2020-10-25 08:23 | EKG12_ITS ---
Test Reason : NEAR SYNCOPE Blood Pressure : / mmHG Vent. Rate : 072 BPM Atrial Rate : 072 BPM P-R Int : 152 ms QRS Dur : 106 ms QT Int : 384 ms P-R-T Axes : 012 -02 007 degrees QTc Int : 420 ms Normal sinus rhythm Inferior infarct , age undetermined, cannot be excluded Abnormal ECG Confirmed by GISELL MORILLO, MAC ([id number]), development editor WIL HERNADEZ ([id number]) on 11/01/2020 1:02:29 PM Referred By: ANGEL LUIS Confirmed By:MAC JAMESON MD
--- NOTE | 2020-10-25 08:24 | EDS_ITS ---
HPI History of Present Illness Chief Complaint: Syncope Informant: patient Onset/Context/Timing Onset: Yesterday Current Severity: Mild Maximum Severity: Moderate Narrative Narrative: Patient presents after 3 near syncopal episode yesterday. Patient states that he was at work and it was hot. He had 3 episodes where his vision went white and he felt he was in a pass out. He never went completely out. He denies having palpitations or chest pain during the episode. Patient states for the last 3 weeks or more he is been feeling very fatigued. 1.5 years ago he had a severe infection that affected his back and heart valves. While having cardiac clearance for heart valve surgery patient was found to have 2 blockages in his maker. He went to surgery for heart valve replacement in the echocardiogram at that time revealed that the valve had healed itself. He did not require valve replacement. He had 2 stents placed secondary to his coronary disease. Patient states he is previously been seen by a solar energy systems designer at [facility] but is scheduled to see [facility] in November. Patient also has a chronic wound to the left lower leg that he has been following with the wound center for. [facility] Medical History Coronary artery disease Diabetes High cholesterol Hypertension Home Medications lisinopril 10 mg PO DAILY 11/19/18 [History Last Taken 03/07/20 09:00] aspirin 81 mg PO DAILY@0800 03/07/20 [History Last Taken 03/07/20 09:00] atorvastatin 40 mg PO QHS 03/07/20 [History Last Taken 03/06/20 21:30] bupropion HCl 300 mg PO QHS 03/07/20 [History Last Taken 03/06/20 21:30] insulin lispro 2 unit IN CONT 03/07/20 [History Last Taken 03/07/20] metoprolol tartrate 25 mg PO BID 03/07/20 [History Last Taken 03/07/20 09:30] ticagrelor 90 mg PO BID 03/07/20 [History Last Taken 03/07/20 09:00] nut.tx.gluc intol,lf,soy-fiber 120 ml PO TIDCM liquid 03/11/20 [Rx Last Taken Unknown] amoxicillin 875 mg-potassium clavulanate 125 mg tablet 1 tab PO BID 21 Days #42 tab 10/20/20 [Rx Last Taken Unknown] Allergy/AdvReac Type Severity Reaction Status Date / Time No Known Allergies Allergy Verified 10/25/20 08:08 Surgical History H/O heart artery stent History of cardiac cath Social History Smoking Status: Former smoker ROS ROS ED Constitutional Constitutional ED: Denies chills or fever(s) Eyes Eyes: Denies change in vision ENT ENT ED: Denies sore throat Cardiovascular Cardiovascular: Denies chest pain Respiratory/Chest Respiratory/Chest: Denies cough or dyspnea Gastrointestinal Gastrointestinal: Denies abdominal pain, diarrhea, nausea or vomiting Genitourinary Genitourinary ED: Denies dysuria Musculoskeletal Musculoskeletal: Denies back pain Integumentary Denies rash Neurologic Neurologic: Reports weakness; Denies headache(s) Psychiatric Psychiatric: Denies anxiety or depression Endocrine Endocrinology: Denies polydipsia or polyuria Allergic/Immunologic Allergic/Immunologic ED: Denies urticaria EXAM Physical Exam Const Vital Signs: 10/25/20 08:08 10/25/20 09:40 Temperature 96.8 F L Temperature Source Temporal Pulse Rate 75 68 Respiratory Rate 16 16 Blood Pressure 156/81 H 106/73 Blood Pressure Mean 106 84 Pulse Ox 100 94 Oxygen Delivery Method Room Air Room Air Positive well nourished and well developed General Appearance ED: well developed HEENT Reports normocephalic and head/scalp atraumatic Eyes PERRL and EOMs intact bilaterally Neck supple Chest Wall inspection of chest normal and palpation of chest normal Resp normal respiratory effort and clear to auscultation bilaterally Cardio regular rate and regular rhythm GI normal to inspection, nondistended, normoactive bowel sounds Palpation: soft Back/Spine no CVA tenderness Extremity Extremity Narrative: 6 x 9 cm area of erythema over the lateral portion of the left lower leg. There is a healing scab in the center from his chronic wound. No sign of acute infection. Neuro oriented x3 and no sensory deficits noted Sensorium / Orientation: alert Motor Exam: strength 5/5 throughout Psych mental status grossly normal MDM MDM MDM Narrative Medical decision making narrative: Patient was placed on conveyor monitor. EKG, chest x-ray, labs obtained. Lab Data Attestation: I reviewed the patient's lab results. Labs: Laboratory Results - last 24 hr 10/25/20 10/25/20 10/25/20 08:40 08:40 10:33 WBC 6.8 RBC 4.92 Hgb 13.5 Hct 41.6 MCV 84.6 MCH 27.4 MCHC 32.5 RDW Std Deviation 39.6 RDW Coeff of Chandni 12.9 Plt Count 232 MPV 11.2 Immature Gran % (Auto) 0.900 Neut % (Auto) 70.3 H Lymph % (Auto) 16.7 L Sac % (Auto) 9.6 Eos % (Auto) 2.2 Baso % (Auto) 0.3 Absolute Neuts (auto) 4.8 Absolute Lymphs (auto) 1.13 Nucleated RBC % 0 Sodium 134 L Potassium 4.1 Chloride 100 Carbon Dioxide 27.0 Anion Gap 7 BUN 27 H Creatinine 1.36 H Estim Creat Clear Calc 85.98 Est GFR (MDRD) Af Amer 73 Est GFR (MDRD) Non-Af 61 BUN/Creatinine Ratio 19.9 Glucose 262 H Calcium 9.6 Troponin I High Sens 11.6 11.0 Radiography Chest X-Ray - ED: 1 View, Read by ED Physician and Chronic Changes Diagnostic Testing: Radiology Impression Chest X-Ray 10/25/20 08:50 IMPRESSION: Normal x-ray examination of the chest. Electronically Signed: Harry Gaming MD at 9:32 EDT , Service support , EKG Initial EKG: Attestation: I personally reviewed and interpreted this EKG as follows: Interpretation: Sinus Rhythm (Sinus at 72. Q waves noted in [address]VF[address] No acute [address] change.) Follow-up EKG: Attestation: I personally reviewed and interpreted this EKG as follows: Interpretation: Sinus Rhythm (Sinus at 68 with Q waves in 3 and aVF. No acute ST change.) Treatment and Re-Evaluation Comments:: Patient's creatinine is elevated when compared to prior labs. He is given a liter of IV fluids. Portable chest x-ray per my interpretation shows no acute findings, chronic changes only. Radiology interpretation is reviewed. EKG is unremarkable. I did speak with Dr. Haq. He requested we make sure to hydrate the patient, have him increase fluids at home, and plan to follow-up in November as scheduled. I was able to review the surgical note from [facility] from February 2019. 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 Discharge Plan Triage Chief Complaint: Syncope ED Provider: Maria Eugenia Summers Dx/Rx/DC Orders Clinical Impression: Near syncope, Dehydration Instructions: ED Dehydration (Adult) Prescriptions: No Action lisinopril 10 tablet 10 mg PO DAILY RF: 0 atorvastatin 40 MG tablet 40 mg PO QHS RF: 0 aspirin 81 MG tablet 81 mg PO DAILY@0800 RF: 0 metoprolol tartrate 50 MG tablet 25 mg PO BID RF: 0 insulin lispro 100 UNIT/ML solution 2 unit IN CONT RF: 0 bupropion HCl 300 MG tablet extended release 24 hr 300 mg PO QHS RF: 0 ticagrelor 90 MG tablet 90 mg PO BID RF: 0 nut.tx.gluc intol,lf,soy-fiber 120 ML liquid 120 ml PO TIDCM RF: 0 amoxicillin-pot clavulanate [Augmentin] 875-125 mg tablet 1 tab PO BID 21 Days Qty: 42 RF: 1 Primary Care Provider: Rory Greenfield Referrals: Rory Greenfield MD [Primary Care Provider] - 1 Week if not improving Disposition Disposition: Home, Self Care
--- NOTE | 2020-10-25 08:50 | RAD_ITS ---
STUDY: X-RAY CHEST REASON FOR EXAM: Male, 45 years old. 3 week history of weakness. TECHNIQUE: Single AP portable view of the chest. COMPARISON: None. FINDINGS: EKG electrodes are seen. The lungs are clear and expanded. There is no demonstrated pleural abnormality. Normal size heart. Normal mediastinum and tom. Normal visualized pulmonary arteries. Normal visualized aortic arch and descending thoracic aorta. There are degenerative changes of the visualized thoracic spine. Normal visualized ribs, clavicles, and shoulders. There is no demonstrated abnormality of the visualized soft tissue structures of the upper abdomen. RAD/Chest 1 View (Portable) IMPRESSION: Normal x-ray examination of the chest. Electronically Signed: Harry Gaming MD at 9:32 EDT , Service support ,
[2020-10-25 08:51] LABS: Absolute Lymphocyte Count 1.13 X10^3/uL (0.83-4.51); Absolute Neutrophil Count 4.8 X10^3/uL (2.0-7.7); Basophil# 0.02 X10^3/uL; Basophil% 0.3 % (0-1); Eosinophil# 0.15 X10^3/uL; Eosinophils% 2.2 % (0-5); Hematocrit 41.6 % (40-54); Hemoglobin 13.5 g/dL (13.0-16.5); Lymphocyte # 1.13 X10^3/ul (0.83-4.51); Lymphocyte % 16.7 % (19-41); Mean Corp Hgb Conc 32.5 g/dL (32-36); Mean Corpuscular Hgb 27.4 pg (27.0-32.0); Mean Corpuscular Volume 84.6 fL (80-94); Mean Platelet Vol. 11.2 fl (6.2-12.0); Monocyte# 0.65 X10^3/uL; Monocyte% 9.6 % (0-10); NRBC Flagged by Analyzer 0 % (0-5); Neutrophil # 4.77 X10^3/uL (2.7-7.7); Neutrophil % 70.3 % (47-70); Platelet Count 232 K/mm3 (150-450); RBC Distribution Width CV 12.9 % (11.6-14.6); RBC Distribution Width SD 39.6 fl (35.1-43.9); Red Blood Count 4.92 M/mm3 (4.6-6.2); White Blood Count 6.8 K/mm3 (4.4-11.0)
[2020-10-25] MEDS: 0.9% Normal Saline 1,000 ML 150 ML IV (08:53)
[2020-10-25] MEDS: Ondansetron 4 MG/2 ML Vial IV (08:53)
[2020-10-25 09:07] LABS: Anion Gap 7 (5-15); BUN 27 mg/dL (7-18); BUN/Creat Ratio 19.9 RATIO (10-20); Calcium,Total 9.6 mg/dL (8.5-10.1); Chloride 100 mmol/L (98-107); Creatinine, Serum 1.36 mg/dL (0.70-1.30); EST Glomerular Filtration Rate 61 mL/min (>60); Est Glom Filt Rate - Afr Amer 73 mL/min (>60); Estimated Creatinine Clearance 85.98 ml/min; Glucose 262 mg/dL (74-106); Potassium 4.1 mmol/L (3.5-5.1); Sodium Level 134 mmol/L (136-145); Troponin-I HS 11.6 pg/mL (3.0-78.5)
[2020-10-25] MEDS: 0.9% Normal Saline 1,000 ML 999 ML IV (09:13)
[2020-10-25 09:40] VITALS: BP 106/73; PULSE 68; RESP 16; O2SAT 94
--- NOTE | 2020-10-25 10:40 | EKG12_ITS ---
Test Reason : REPEAT Blood Pressure : / mmHG Vent. Rate : 068 BPM Atrial Rate : 068 BPM P-R Int : 162 ms QRS Dur : 104 ms QT Int : 398 ms P-R-T Axes : 016 006 002 degrees QTc Int : 423 ms Normal sinus rhythm Inferior infarct , age undetermined Abnormal ECG Confirmed by GISELL MORILLO, MAC ([id number]), clinical editor WIL HERNADEZ ([id number]) on 11/01/2020 1:01:50 PM Referred By: ANGEL LUIS Confirmed By:MAC JAMESON MD
[2020-10-25 11:18] VITALS: BP 125/79; PULSE 69; RESP 17; O2SAT 99
[2020-10-25 11:23] VITALS: BP 125/79; PULSE 67; RESP 14; O2SAT 98
== END 2020-10-25 11:26 | disposition home or self-care (01) ==
PROVIDERS: Emergency Provider Emergency Medicine; PCP Family Medicine
DX: R55 Syncope and collapse (principal); E86.0 Dehydration; I25.10 Atherosclerotic heart disease of native coronary artery without angina pectoris; E11.9 Type 2 diabetes mellitus without complications; I10 Essential (primary) hypertension; E78.00 Pure hypercholesterolemia, unspecified; S81.802A Unspecified open wound, left lower leg, initial encounter; X58.XXXA Exposure to other specified factors, initial encounter; Y93.9 Activity, unspecified; Y92.9 Unspecified place or not applicable; Y99.9 Unspecified external cause status; Z79.82 Long term (current) use of aspirin; Z79.4 Long term (current) use of insulin; Z79.899 Other long term (current) drug therapy; Z87.891 Personal history of nicotine dependence; Z95.5 Presence of coronary angioplasty implant and graft
CPT/HCPCS: 71045; 80048; 84484; 85025; 93005; 96361; 96374; 99285; J7030; A4216; J2405

== ENCOUNTER 2020-11-20 08:30 | Outpatient (RCR) | payer BC, MEDICAID, SELFPAY ==
[2020-10-26 00:20] VITALS: BP 140/85; PULSE 79; RESP 20; TEMP 36.4
[2020-11-06 08:29] VITALS: BP 143/85; PULSE 75; RESP 16; TEMP 35.9; BMI 34.2
--- NOTE | 2020-11-06 09:24 | PN.PCM_ITS ---
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 History of Wound: Surgery 03/08/20 - Surgical preparation left lateral leg with incision and drainage and excisional debridement diabetic abscess (72 cm2). Wound care - Left lateral ulcer Theraskin #8 placed. We took a break because his insurance is reviewing if he is allowed to have the 2 remaining treatments of the Theraskin. Collagen hydrogel covered by adaptic then topped with gauze daily. Wound culture obtained 10/16/20 which was positive for Streptococcus agalactiae (B), Staphylococcus lugdunensis, and Gram positive rods. He is being treated with Augmentin. Wound culture obtained 04/17/20 which was positive for Klebsiella oxytoca, Enterobacter cloacae complex, Streptococcus agalactiae (B), Enterococcus faecalis, Bacteroides fragilis group, Prevotella melaninogenica, and Anaerobic cocci. He was started on Levaquin, Augmentin and a probiotic. Operative culture showed Staphylococcus aureus. He was discharged on Keflex and has finished them. Prealbumin on 03/10/20 was 9.1. Encouraged nutritional supplementation with protein to help the healing process. Today he denies fever. His appetite is good. Progress of Wound: Improved. Objective Data Objective Data Vital Signs: Vital Signs Temp Pulse Resp BP 96.7 F L 75 16 143/85 H 11/06/20 08:29 11/06/20 08:29 11/06/20 08:29 11/06/20 08:29 Oxygen Delivery Method Room Air Weight: 615 lb 1.435 oz Body Mass Index (BMI) 34.2 Charges/Coding Procedures Integumentary 111xxx-113xx: 41716 Neelima subq tissue 20 sq cm/< Physical Exam Const alert and oriented x3 General Appearance: cooperative HEENT normocephalic Head and Scalp: atraumatic Eyes PERRL Lymph Lymphatic: no lymphedema noted Resp normal respiratory effort Cardio regular rate GI Palpation: soft Extremity no clubbing, cyanosis or edema Skin Wound Narrative: Left lateral leg ulcer is decreasing in size. Granulation tissue present. Neuro CN's II-XII intact bilaterally Psych Appearance: grossly normal Debridement Note Debridement Note Post-Debridement Measurements and Additional Note: Post-Debridement Measurements/Treatment WC - Nurse 1 - General Ulcer Assessment Start: 11/06/20 08:29 Freq: Status: Active Protocol: [email or web address] Activity Type Activity Date Activity User E-Sign Co-Sign Detail Recorded Client Recorded Date Recorded By Document 11/06/20 08:29 [facility] [id number] 11/06/20 08:34 [facility] 11/06/20 08:29 - Today's Visit Information Type of service Follow-up Visit (Physician/FEATHER EDGER ) Arrival Mode Ambulatory Patient Identification Verified (Name & Yes ) Patient Requires Transmission-Based No Precautions Height and Weight Body Mass Index (BMI) 34.2 BMI Classification Obese Vital Signs Temperature (97.8 F-99.1 F) 96.7 F L Temperature Source Temporal Pulse Rate (60-100) 75 Pulse Location Monitor Respiratory Rate (12-18) 16 Respiratory rate source Observation Oxygen Delivery Method Room Air Blood Pressure (90/60-120/80) 143/85 H Blood Pressure Mean (mm Hg) 104 Source Monitor Position Sitting Blood Pressure Location Left Arm History Since Last Visit- (Skip if this is Patient's initial visit) Have you changed medications since your No last visit? Any new allergies or adverse reactions No Had a fall/change in ADL's that may No increase risk of falls Signs or symptoms of abuse and/or No neglect since last visit Have you been in the hospital since your Yes last visit? Has dressing in place as prescribed No Has compression in place as prescribed Yes Has offloadiing in place as prescribed N/A Experienced any changes in pain level or No management Left Footwear Regular Shoe Right Footwear Regular Shoe Pain Scale: 0-10 Numeric Is Patient Pain Free? Yes - Nurse 1 - General Ulcer Measurement Start: 11/06/20 08:29 Freq: Status: Active Protocol: Activity Type Activity Date Activity User E-Sign Co-Sign Detail Recorded Client Recorded Date Recorded By Document 11/06/20 08:29 [facility] [id number] 11/06/20 08:34 [facility] 11/06/20 08:29 Wound Center Nurse 1 #1 Left Lateral LE -Combined with other wound No -Current Size (cm) - Length 0.1 -Current Size (cm) - Width 0.1 -Current Size (cm) - Depth 0.1 -Total Square Cm 0.01 -Photo Taken No -Epithelialization Large 67-100% -Tunneling No -Undermining/Tunneling No -Circular Undermining No -Exudate Amt Small -Exudate Type Serosanguineous -Wound Margin Flat & Intact -Granulation Amt Small (1-33%) -Granulation Quality Red -Texture (Radha-wound Skin Appearance) Assessed, Scarring -Moisture (Radha-wound Skin Appearance) Assessed,Dry/ Scaly -Color (Radha-wound Skin Appearance) Assessed -Temperature (Radha-wound Skin No Abnormality Appearance) (Pt Warm) -Tenderness on Palpation (Radha-wound No Skin Appearance) -Ulcer Cleansing Rinsed/ Irrigated with Saline -Foul Odor after Cleansing Yes, Due to Product Use -Anesthetic Used 5% Lidocaine Gel WC - Nurse 2 - General Ulcer CM Notes Start: 11/06/20 08:29 Freq: Status: Active Protocol: Activity Type Activity Date Activity User E-Sign Co-Sign Detail Recorded Client Recorded Date Recorded By Document 11/06/20 09:22 PL [id number] 11/06/20 09:23 PL 11/06/20 09:22 Wound Center Nurse 2 -Time 08:44 -Correct Patient Yes -Correct Side, Site, Position Yes -Correct Procedure Yes -Procedure Performed Yes -Type of Procedure Debridement -Clinical Debridement Subcutaneous -Tissue Removed Subcutaneous -Post Debridement (cm) - Length 0.5 -Post Debridement (cm) - Width 1.0 -Post Debridement (cm) - Depth 0.1 -Total Square (Post) (cm) 0.50 -Area of Debridement (cm) - Length 0.5 -Area of Debridement (cm) - Width 1.0 -Total Square (Area) (cm) 0.50 -Tunneling No -Undermining/Tunneling No -Circular Undermining No -Wound/Ulcer Outcome Not Healed -Ulcer Cleansing Rinsed/ Irrigated with Saline -Foul Odor after Cleansing No -Bioengineered Tissue No -Debridement - Subq, 1st 20sq cm Yes Pain Scale: 0-10 Numeric Is Patient Pain Free? Yes Wound debrided: Lateral leg ulcer Laterality: Left Type of Debridement: Excisional debridement Anesthesia Used: 5% Lidocaine Gel Depth: Down to and including healthy tissue and in the subcutaneous layer Percentage of wound debrided: 100 Instrument Used: 5mm curette Tissue Removed: Subcutaneous tissue and slough Severity: Fat Layer Exposed Amount of bleeding with debridement: Mild Bleeding Controlled with: Pressure Patient tolerated procedure: Patient tolerated procedure well Assessment/Plan Assessment/Plan (1) Ulcer of left lower extremity with muscle involvement without evidence of necrosis: CODE(S): L97.925 - Non-pressure chronic ulcer of unspecified part of left lower leg with muscle involvement without evidence of necrosis (2) Diabetic ulcer of lower leg: CODE(S): E11.622 - Type 2 diabetes mellitus with other skin ulcer; L97.909 - Non-pressure chronic ulcer of unspecified part of unspecified lower leg with unspecified severity (3) Type 2 diabetes mellitus: CODE(S): E11.9 - Type 2 diabetes mellitus without complications QUALIFIERS: Qualified Code(s): 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 We took a break from the theraskin while waiting for his insurance to approve his final two treatments. Left achilles ulcer remains healed. Wound care is collagen hydrogel covered by adaptic daily then topped with dry gauze. Double tubigrip for compression. Encouraged him to massage the left posterior ankle area with lotion daily. He may need to cover the heel area with gauze before placing compression. Wound culture obtained 10/16/20 which was positive for Streptococcus agalactiae (B), Staphylococcus lugdunensis, and Gram positive rods. He is being treated with Augmentin. Wound culture obtained 04/17/20 which was positive for Klebsiella oxytoca, Enterobacter cloacae complex, Streptococcus agalactiae (B), Enterococcus faecalis, Bacteroides fragilis group, Prevotella melaninogenica, and Anaerobic cocci. He was started on Levaquin, Augmentin and a probiotic, which he has completed. His operative culture showed Staphylococcus aureus. He was discharged on Keflex and has finished them. His Prealbumin from 03/10/20 was 9.1. Encourage nutritional supplementation with protein to help the healing process. Discussed further operative intervention with debridement and skin grafting using an autograft. He wants to try the advanced skin substitute grafts first. Patient is back to work. He is doing well with no restrictions. Encouraged him to wear soft loyola guards while at work so he isn't causing more trauma to his shins bilaterally from the ladders. Follow up 2 weeks.
[2020-11-20 08:35] VITALS: BP 150/87; PULSE 72; TEMP 36; BMI 34.2
--- NOTE | 2020-11-20 14:43 | PN.PCM_ITS ---
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 History of Wound: Surgery 03/08/20 - Surgical preparation left lateral leg with incision and drainage and excisional debridement diabetic abscess (72 cm2). Wound care - Left lateral ulcer Theraskin #8 placed. We took a break because his insurance is reviewing if he is allowed to have the 2 remaining treatments of the Theraskin. Collagen hydrogel covered by adaptic then topped with gauze daily. Wound seems too dry, will continue Collagen hydrogel and cover with Mepilex dressing every other day. Wear tubigrip for compression. Wound culture obtained 10/16/20 which was positive for Streptococcus agalactiae (B), Staphylococcus lugdunensis, and Gram positive rods. He is being treated with Augmentin. Wound culture obtained 04/17/20 which was positive for Klebsiella oxytoca, Enterobacter cloacae complex, Streptococcus agalactiae (B), Enterococcus faecalis, Bacteroides fragilis group, Prevotella melaninogenica, and Anaerobic cocci. He was started on Levaquin, Augmentin and a probiotic. Operative culture showed Staphylococcus aureus. He was discharged on Keflex and has finished them. Prealbumin on 03/10/20 was 9.1. Encouraged nutritional supplementation with protein to help the healing process. Today he denies fever. His appetite is good. Progress of Wound: Improved. Objective Data Objective Data Vital Signs: Vital Signs Temp Pulse Resp BP 96.8 F L 72 16 150/87 H 11/20/20 08:35 11/20/20 08:35 11/06/20 08:29 11/20/20 08:35 Oxygen Delivery Method Room Air Weight: 615 lb 1.435 oz Body Mass Index (BMI) 34.2 Charges/Coding Procedures Integumentary 111xxx-113xx: 74342 Neelima subq tissue 20 sq cm/< Physical Exam Const alert and oriented x3 General Appearance: cooperative HEENT normocephalic Eyes PERRL Lymph Lymphatic: no lymphedema noted Resp normal respiratory effort Cardio regular rate GI non-tender Palpation: soft Extremity no clubbing, cyanosis or edema Skin Wound Narrative: Left lateral leg ulcer is pink but very dry and scabbing around the edges. No clinical signs of infection. Neuro CN's II-XII intact bilaterally Psych Appearance: grossly normal Debridement Note Debridement Note Post-Debridement Measurements and Additional Note: Post-Debridement Measurements/Treatment JAYME - Nurse 1 - General Ulcer Assessment Start: 11/06/20 08:29 Freq: Status: Active Protocol: ABIMBOLA Activity Type Activity Date Activity User E-Sign Co-Sign Detail Recorded Client Recorded Date Recorded By Document 11/06/20 08:29 BM [id number] 11/06/20 08:34 [facility] Document 11/20/20 08:35 [place] [id number] 11/20/20 08:38 [place] 11/06/20 11/20/20 08:29 08:35 WC - Today's Visit Information Type of service Follow-up Visit Follow-up Visit (Physician/CATTLE SHIPPER (Physician/CATTLE SHIPPER ) ) Arrival Mode Ambulatory Ambulatory Patient Identification Verified (Name & Yes Yes ) Patient Requires Transmission-Based No Precautions Safety Precautions NA Blood Sugar Stated by Patient Height and Weight Body Mass Index (BMI) 34.2 34.2 BMI Classification Obese Obese Vital Signs Temperature (97.8 F-99.1 F) 96.7 F L 96.8 F L Temperature Source Temporal Temporal Pulse Rate (60-100) 75 72 Pulse Location Monitor Monitor Respiratory Rate (12-18) 16 Respiratory rate source Observation Oxygen Delivery Method Room Air Blood Pressure (90/60-120/80) 143/85 H 150/87 H Blood Pressure Mean (mm Hg) 104 108 Source Monitor Monitor Position Sitting Blood Pressure Location Left Arm Right Arm History Since Last Visit- (Skip if this is Patient's initial visit) Have you changed medications since your No No last visit? Any new allergies or adverse reactions No No Had a fall/change in ADL's that may No No increase risk of falls Signs or symptoms of abuse and/or No No neglect since last visit Have you been in the hospital since your Yes No last visit? Has dressing in place as prescribed No Yes Has compression in place as prescribed Yes Yes Has offloadiing in place as prescribed N/A No Experienced any changes in pain level or No No management Left Footwear Regular Shoe Regular Shoe Right Footwear Regular Shoe Regular Shoe Pain Scale: 0-10 Numeric Is Patient Pain Free? Yes Yes JAYME - Nurse 1 - General Ulcer Measurement Start: 11/06/20 08:29 Freq: Status: Active Protocol: Activity Type Activity Date Activity User E-Sign Co-Sign Detail Recorded Client Recorded Date Recorded By Document 11/06/20 08:29 [facility] [id number] 11/06/20 08:34 [facility] Document 11/20/20 08:35 [place] [id number] 11/20/20 08:38 [place] 11/06/20 11/20/20 08:29 08:35 Wound Center Nurse 1 #1 Left Lateral LE -Combined with other wound No -Current Size (cm) - Length 0.1 1.9 -Current Size (cm) - Width 0.1 0.5 -Current Size (cm) - Depth 0.1 0.1 -Total Square Cm 0.01 0.95 -Photo Taken No No -Epithelialization Large 67-100% -Tunneling No -Undermining/Tunneling No -Circular Undermining No -Exudate Amt Small Small -Exudate Type Serosanguineous Serosanguineous -Wound Margin Flat & Intact Distinct, Outline Attached -Granulation Amt Small (1-33%) Medium (34-66%) -Granulation Quality Red [place] -Slough/Fibrin No -Texture (Radha-wound Skin Appearance) Assessed, Assessed, Scarring Scarring -Moisture (Radha-wound Skin Appearance) Assessed,Dry/ No Abnormality, Scaly Assessed -Color (Radha-wound Skin Appearance) Assessed No Abnormality, Assessed -Temperature (Radha-wound Skin No Abnormality No Abnormality Appearance) (Pt Warm) (Pt Warm) -Tenderness on Palpation (Radha-wound No No Skin Appearance) -Ulcer Cleansing Rinsed/ Rinsed/ Irrigated with Irrigated with Saline Saline -Foul Odor after Cleansing Yes, Due to No Product Use -Anesthetic Used 5% Lidocaine 5% Lidocaine Gel Gel WC - Nurse 2 - General Ulcer CM Notes Start: 11/06/20 08:29 Freq: Status: Active Protocol: Activity Type Activity Date Activity User E-Sign Co-Sign Detail Recorded Client Recorded Date Recorded By Document 11/06/20 09:22 PL [id number] 11/06/20 09:23 PL Document 11/20/20 08:45 JF [id number] 11/20/20 08:51 JF 11/06/20 11/20/20 09:22 08:45 Wound Center Nurse 2 #1 Left Lateral LE -Time 08:44 08:46 -Correct Patient Yes Yes -Correct Side, Site, Position Yes Yes -Correct Procedure Yes Yes -Procedure Performed Yes Yes -Type of Procedure Debridement Debridement -Clinical Debridement Subcutaneous Subcutaneous -Tissue Removed Subcutaneous Subcutaneous -Post Debridement (cm) - Length 0.5 2.4 -Post Debridement (cm) - Width 1.0 2.4 -Post Debridement (cm) - Depth 0.1 0.1 -Total Square (Post) (cm) 0.50 5.76 -Area of Debridement (cm) - Length 0.5 2.4 -Area of Debridement (cm) - Width 1.0 2.4 -Total Square (Area) (cm) 0.50 5.76 -Tunneling No No -Undermining/Tunneling No No -Circular Undermining No No -Wound/Ulcer Outcome Not Healed Not Healed -Ulcer Cleansing Rinsed/ Rinsed/ Irrigated with Irrigated with Saline Saline -Foul Odor after Cleansing No No -Bioengineered Tissue No No -Bleeding Controlled with Pressure -Offloading No -Treatment Response Procedure Tolerated Well -Debridement - Subq, 1st 20sq cm Yes Yes Pain Scale: 0-10 Numeric Is Patient Pain Free? Yes Yes - Nurse 3 - General Ulcer D/C NN Start: 11/06/20 08:29 Freq: Status: Active Protocol: Activity Type Activity Date Activity User E-Sign Co-Sign Detail Recorded Client Recorded Date Recorded By Document 11/20/20 09:08 DL [id number] 11/20/20 09:10 DL 11/20/20 09:08 Wound Care Nurse 3 #1 Left Lateral LE -Ulcer Cleansing Rinsed/ Irrigated with Saline -Foul Odor after Cleansing No -Primary Dressing Applied C Hydrogel ($), Mepilex Border -Mepilex Border 1 Left -Size of Tubigrip Used Size D Treatment Response Procedure Tolerated Well Pain Scale: 0-10 Numeric Is Patient Pain Free? Yes - Visit Discharge Discharge Condition Stable Ambulatory Status Ambulatory Transportation Private Auto Wound debrided: Lateral leg ulcer Laterality: Left Type of Debridement: Excisional debridement Anesthesia Used: 5% Lidocaine Gel Depth: Down to and including healthy tissue and in the subcutaneous layer Percentage of wound debrided: 100 Instrument Used: 5mm curette Tissue Removed: Subcutaneous tissue and slough Severity: Fat Layer Exposed Amount of bleeding with debridement: Mild Bleeding Controlled with: Pressure Patient tolerated procedure: Patient tolerated procedure well Assessment/Plan Assessment/Plan (1) Ulcer of left lower extremity with muscle involvement without evidence of necrosis: CODE(S): L97.925 - Non-pressure chronic ulcer of unspecified part of left lower leg with muscle involvement without evidence of necrosis (2) Diabetic ulcer of lower leg: CODE(S): E11.622 - Type 2 diabetes mellitus with other skin ulcer; L97.909 - Non-pressure chronic ulcer of unspecified part of unspecified lower leg with unspecified severity (3) Type 2 diabetes mellitus: CODE(S): E11.9 - Type 2 diabetes mellitus without complications QUALIFIERS: Qualified Code(s): Z79.4 - retirement (current) use of insulin PLAN: Wound care - Theraskin #8 placed on left lateral leg ulcer. We took a break from the theraskin while waiting for his insurance to approve his final two treatments. Left achilles ulcer remains healed. Wound care - Left lateral ulcer Theraskin #8 placed. We took a break because his insurance is reviewing if he is allowed to have the 2 remaining treatments of the Theraskin. Collagen hydrogel covered by adaptic then topped with gauze daily. Wound seems too dry, will continue Collagen hydrogel and cover with Mepilex dressing every other day. Wear tubigrip for compression. Wound culture obtained 10/16/20 which was positive for Streptococcus agalactiae (B), Staphylococcus lugdunensis, and Gram positive rods. He is being treated with Augmentin. Wound culture obtained 04/17/20 which was positive for Klebsiella oxytoca, Enterobacter cloacae complex, Streptococcus agalactiae (B), Enterococcus faecalis, Bacteroides fragilis group, Prevotella melaninogenica, and Anaerobic cocci. He was started on Levaquin, Augmentin and a probiotic, which he has completed. His operative culture showed Staphylococcus aureus. He was discharged on Keflex and has finished them. His Prealbumin from 03/10/20 was 9.1. Encourage nutritional supplementation with protein to help the healing process. Discussed further operative intervention with debridement and skin grafting using an autograft. He wants to try the advanced skin substitute grafts first. Patient is back to work. He is doing well with no restrictions. Encouraged him to wear soft loyola guards while at work so he isn't causing more trauma to his shins bilaterally from the ladders. Follow up 2 weeks.
== END 2020-11-25 23:59 ==
LOC: WC 08:30
PROVIDERS: PCP Family Medicine; Referring Provider Surgery; Visit Provider Nurse Practitioner Family
DX: E11.622 Type 2 diabetes mellitus with other skin ulcer (principal); L97.825 Non-pressure chronic ulcer of other part of left lower leg with muscle involvement without evidence of necrosis; E66.9 Obesity, unspecified; Z68.34 Body mass index [BMI] 34.0-34.9, adult; Z79.02 Long term (current) use of antithrombotics/antiplatelets; Z79.82 Long term (current) use of aspirin; Z79.4 Long term (current) use of insulin
CPT/HCPCS: 11042

== ENCOUNTER 2020-12-04 08:30 | Outpatient (RCR) | payer BC, MEDICAID, SELFPAY ==
[2020-11-26 00:24] VITALS: BP 150/87; PULSE 72; RESP 16; TEMP 36
[2020-12-04 08:39] VITALS: BP 148/89; PULSE 74; RESP 20; TEMP 36.2; BMI 34.2
--- NOTE | 2020-12-04 09:45 | PCM.WC.PN ---
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 History of Wound: Surgery 03/08/20 - Surgical preparation left lateral leg with incision and drainage and excisional debridement diabetic abscess (72 cm2). Wound care - Left lateral ulcer Theraskin #8 placed. We took a break because his insurance is reviewing if he is allowed to have the 2 remaining treatments of the Theraskin. Collagen hydrogel covered by adaptic then topped with gauze daily. Wound seems too dry, will continue Collagen hydrogel and cover with Mepilex dressing every other day. Wear tubigrip for compression. Wound culture obtained 10/16/20 which was positive for Streptococcus agalactiae (B), Staphylococcus lugdunensis, and Gram positive rods. He is being treated with Augmentin. Wound culture obtained 04/17/20 which was positive for Klebsiella oxytoca, Enterobacter cloacae complex, Streptococcus agalactiae (B), Enterococcus faecalis, Bacteroides fragilis group, Prevotella melaninogenica, and Anaerobic cocci. He was started on Levaquin, Augmentin and a probiotic. Operative culture showed Staphylococcus aureus. He was discharged on Keflex and has finished them. Prealbumin on 03/10/20 was 9.1. Encouraged nutritional supplementation with protein to help the healing process. Today he denies fever. His appetite is good. Progress of Wound: Improved. Almost healed. Objective Data Objective Data Vital Signs: Vital Signs Temp Pulse Resp BP 97.1 F L 74 20 H 148/89 H 12/04/20 08:39 12/04/20 08:39 12/04/20 08:39 12/04/20 08:39 Weight: 615 lb 1.435 oz Body Mass Index (BMI) 34.2 Charges/Coding Procedures Integumentary [id number]: [id number] Neelima subq tissue 20 sq cm/< Physical Exam Const alert and oriented x3 General Appearance: cooperative HEENT normocephalic Head and Scalp: atraumatic Eyes PERRL Lymph Lymphatic: no lymphedema noted Resp clear to auscultation bilaterally Cardio regular rate GI non-tender Palpation: soft Extremity normal capillary refill General Extremity: Negative for edema Skin Skin Narrative: Left lateral leg ulcer is almost healed. Some dry scabbing that was removed from around the ulcer. 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 Any new allergies or adverse reactions No Had a fall/change in ADL's that may No increase risk of falls Signs or symptoms of abuse and/or No neglect since last visit Has dressing in place as prescribed Yes Has compression in place as prescribed Yes Has offloadiing in place as prescribed N/A Experienced any changes in pain level or No management Pain Scale: 0-10 Numeric Is Patient Pain Free? Yes JAYME - Nurse 1 - General Ulcer Measurement Start: 12/04/20 08:36 Freq: Status: Active Protocol: Activity Type Activity Date Activity User E-Sign Co-Sign Detail Recorded Client Recorded Date Recorded By Document 12/04/20 08:39 DL [id number] 12/04/20 08:42 DL 12/04/20 08:39 Wound Center Nurse 1 #1 Left Lateral LE -Current Size (cm) - Length 0.4 -Current Size (cm) - Width 0.4 -Current Size (cm) - Depth 0.1 -Total Square Cm 0.16 -Photo Taken No -Exudate Amt Small -Exudate Type Serosanguineous -Wound Margin Flat & Intact -Granulation Amt Large (67-100%) -Granulation Quality Pale,[place] -Necrosis Amt Small (1-33%) -Structure Exposed None/Limited to Skin Breakdown -Texture (Radha-wound Skin Appearance) Scarring -Moisture (Radha-wound Skin Appearance) No Abnormality -Color (Radha-wound Skin Appearance) No Abnormality -Temperature (Radha-wound Skin No Abnormality Appearance) (Pt Warm) -Tenderness on Palpation (Radha-wound No Skin Appearance) -Ulcer Cleansing Wound Cleanser -Foul Odor after Cleansing No -Anesthetic Used 4% Lidocaine Solution Right Calf (cm) 39.5 Right Ankle (cm) 25 - Nurse 2 - General Ulcer CM Notes Start: 12/04/20 08:36 Freq: Status: Active Protocol: Activity Type Activity Date Activity User E-Sign Co-Sign Detail Recorded Client Recorded Date Recorded By Document 12/04/20 09:13 LADAN [id number] 12/04/20 09:15 LADAN 12/04/20 09:13 Wound Center Nurse 2 #1 Left Lateral LE -Clinical Debridement Subcutaneous -Tissue Removed Subcutaneous -Post Debridement (cm) - Length 0.5 -Post Debridement (cm) - Width 0.8 -Post Debridement (cm) - Depth 0.1 -Total Square (Post) (cm) 0.40 -Area of Debridement (cm) - Length 0.5 -Area of Debridement (cm) - Width 0.8 -Total Square (Area) (cm) 0.40 -Tunneling No -Undermining/Tunneling No -Circular Undermining No -Wound/Ulcer Outcome Not Healed -Ulcer Cleansing Rinsed/ Irrigated with Saline -Foul Odor after Cleansing No -Bioengineered Tissue No -Bleeding Controlled with Pressure -Offloading No -Treatment Response Procedure Tolerated Well -Debridement - Subq, 1st 20sq cm Yes Pain Scale: 0-10 Numeric Is Patient Pain Free? Yes - Nurse 3 - General Ulcer D/C NN Start: 12/04/20 08:36 Freq: Status: Active Protocol: Activity Type Activity Date Activity User E-Sign Co-Sign Detail Recorded Client Recorded Date Recorded By Document 12/04/20 09:15 LADAN [id number] 12/04/20 09:16 LADAN 12/04/20 09:15 Wound Care Nurse 3 #1 Left Lateral LE -Ulcer Cleansing Rinsed/ Irrigated with Saline -Foul Odor after Cleansing No -Primary Dressing Applied Hydrofiber, Mepilex Border -Melgisorb 2 -Mepilex Border 2 Pain Scale: 0-10 Numeric Is Patient Pain Free? Yes WC - Visit Discharge Discharge Condition Stable Ambulatory Status Ambulatory Transportation Private Auto Medication Reconcilliation completed & Yes provided to patient/care provider Clinical Summary of Care Provided Yes Wound debrided: Lateral leg ulcer Laterality: Left Type of Debridement: Excisional debridement Anesthesia Used: 5% Lidocaine Gel Depth: Down to and including healthy tissue and in the subcutaneous layer Percentage of wound debrided: 100 Instrument Used: 3mm curette Tissue Removed: Subcutaneous tissue and slough Severity: Limited To Skin Breakdown Amount of bleeding with debridement: Mild Bleeding Controlled with: Pressure Patient tolerated procedure: Patient tolerated procedure well Assessment/Plan Assessment/Plan (1) Ulcer of left lower extremity with muscle involvement without evidence of necrosis: CODE(S): L97.925 - Non-pressure chronic ulcer of unspecified part of left lower leg with muscle involvement without evidence of necrosis (2) Type 2 diabetes mellitus: CODE(S): E11.9 - Type 2 diabetes mellitus without complications QUALIFIERS: Diabetes mellitus bed bug exterminator insulin use: unspecified bed bug exterminator insulin use status (3) PVD (peripheral vascular disease): CODE(S): I73.9 - Peripheral vascular disease, unspecified PLAN: Wound care - Theraskin #8 placed on left lateral leg ulcer. We took a break from the theraskin while waiting for his insurance to approve his final two treatments. Left achilles ulcer remains healed. Wound care - Left lateral ulcer Theraskin #8 placed. We took a break because his insurance is reviewing if he is allowed to have the 2 remaining treatments of the Theraskin. Collagen hydrogel covered by adaptic then topped with gauze daily. Wound seems too dry, will continue Collagen hydrogel and cover with Mepilex dressing every other day. Wear tubigrip for compression. Wound culture obtained 10/16/20 which was positive for Streptococcus agalactiae (B), Staphylococcus lugdunensis, and Gram positive rods. He completed the Augmentin. Wound culture obtained 04/17/20 which was positive for Klebsiella oxytoca, Enterobacter cloacae complex, Streptococcus agalactiae (B), Enterococcus faecalis, Bacteroides fragilis group, Prevotella melaninogenica, and Anaerobic cocci. He was started on Levaquin, Augmentin and a probiotic, which he has completed. His operative culture showed Staphylococcus aureus. He was discharged on Keflex and has finished them. His Prealbumin from 03/10/20 was 9.1. Encourage nutritional supplementation with protein to help the healing process. Discussed further operative intervention with debridement and skin grafting using an autograft. He wants to try the advanced skin substitute grafts first. Patient is back to work. He is doing well with no restrictions. Encouraged him to wear soft loyola guards while at work so he isn't causing more trauma to his shins bilaterally from the ladders. Follow up 2 weeks.
== END 2020-12-26 23:59 ==
LOC: WC 08:30
PROVIDERS: PCP Family Medicine; Referring Provider Surgery; Visit Provider Nurse Practitioner Family
DX: E11.622 Type 2 diabetes mellitus with other skin ulcer (principal); L97.821 Non-pressure chronic ulcer of other part of left lower leg limited to breakdown of skin; E11.51 Type 2 diabetes mellitus with diabetic peripheral angiopathy without gangrene; Z79.4 Long term (current) use of insulin; Z79.82 Long term (current) use of aspirin; Z79.02 Long term (current) use of antithrombotics/antiplatelets; Z79.899 Other long term (current) drug therapy
CPT/HCPCS: 11042

== ENCOUNTER → 2021-01-15 06:43 | Outpatient (CLI) | payer BC, MEDICAID, SELFPAY ==
--- NOTE | 2021-01-15 06:45 | ECHOCS_ITS ---
Reason For Study: CAD Procedure This was a 2D Doppler, Color Flow transthoracic echocardiogram. The study was technically difficult. Contrast injection was performed. Exam performed in department. Left Ventricle Normal LV size. Mild concentric left ventricular hypertrophy. Left ventricular systolic function is normal. The estimated ejection fraction is 55 %. Stage 2 diastolic dysfunction. No regional wall motion abnormalities noted. Right Ventricle Normal RV size. Normal systolic function. Atria Normal left atrium. Normal right atrium. Mitral Valve Normal mitral valve. Tricuspid Valve Normal tricuspid valve. Mild (1+) tricuspid valve insufficiency. Pulmonary artery systolic pressure is 35 mmHg. Aortic Valve Normal aortic valve. Trisinus/trileaflet aortic valve. Pulmonic Valve Normal pulmonic valve. Great Vessels Normal aortic root. The pulmonary artery is normal size. Normal inferior vena cava. Pericardium/Pleural No pericardial effusion. Medication Diluted definity 2.0ml given slow IV push to enhance endocardial definition. MMode/2D Measurements & Calculations LVIDd: 4.8 cm IVSd: 1.2 cm Ao root diam: 3.2 cm LVIDs: 3.3 cm LVPWd: 1.2 cm RVDd: 3.8 cm FS: 31.6 % LAV(MOD-bp): 68.9 ml LA A4 area: 21.0 cm2 LA dimension(2D): 4.6 cm LAV(MOD-bp) Indexed: 26.8 ml/m2 LAV(MOD-sp2): 72.1 ml LAV(MOD-sp4): 62.6 ml RA A4 area: 14.5 cm2 Doppler Measurements & Calculations MV E max joe: 88.8 cm/sec Lat Peak E' Joe: 8.5 cm/sec Med Peak E' Joe: 7.0 cm/sec MV A max joe: 71.8 cm/sec E/E' lat: 10.4 E/E' med: 12.7 MV E/A: 1.2 Ao V2 max: 167.5 cm/sec LV V1 max: 150.0 cm/sec PA V2 max: 136.6 cm/sec Ao max P.2 mmHg LV V1 max P.0 mmHg TR max joe: 274.3 cm/sec TR max P.1 mmHg ECHO/Echo Complete W/ Contrast Interpretation Summary Normal LV size. Left ventricular systolic function is normal. The estimated ejection fraction is 55 %. Stage 2 diastolic dysfunction. Mild concentric left ventricular hypertrophy. Contrast injection was performed. Ordering Physician: Kristopher Haq Referring Physician: MAC ARTHUR Performed By: Pau Acosta, GISELLA, RVT
--- NOTE | 2021-01-15 19:55 | STRESSREP_ITS ---
Stress Test Report Pharmacologic myocardial perfusion stress test. 45-year-old man with a history of coronary artery disease. Medications aspirin atorvastatin metoprolol ticagrelor. Stress protocol: Resting EKG demonstrates normal sinus rhythm with a rate of 80 bpm. T wave inversions noted noted in lead III and aVF. Resting blood pressure is 148/86 mmHg. 0.4 mg of regadenoson was infused per usual protocol followed by rapid intravenous saline flush injection continuous EKG monitoring was performed. Maximum heart rate attained was 104 bpm which was 58% of max infected heart rate the maximum workload was 1 metabolic equivalent. At rest nonspecific ST changes were noted the T wave inversions noted in the inferior leads persisted. The resting blood pressure was 148/86 with a final blood pressure 142/84 mmHg. No clinical angina was noted. Myocardial perfusion protocol. 14.8 mCi of technetium 99m sestamibi was injected at rest. 0.4 mg of regad enoson was infused per usual protocol and at peak infusion 44.9 mCi of technetium 99m sestamibi was injected stress images were obtained stress and rest images were reconstructed and compared in the short axis vertical long horizontal long axis. Gated images were also obtained to Perfusion SPECT analysis: Review of the stress images demonstrate normal uptake of tracer noted in all areas of the myocardium. The resting images similarly demonstrate normal uptake of tracer noted in all areas of the myocardium. No areas of reversibility are noted to suggest ischemia and no previous infarct was noted. Gated SPECT analysis: The gated ejection fraction was 70%. Conclusion: Normal pharmacologic myocardial perfusion stress test. Preserved ejection fraction.
== END ==
PROVIDERS: PCP Family Medicine; Referring Provider Internal Medicine Cardiovascular Disease; Visit Provider Internal Medicine Cardiovascular Disease
DX: I25.10 Atherosclerotic heart disease of native coronary artery without angina pectoris (principal); Z95.5 Presence of coronary angioplasty implant and graft
CPT/HCPCS: 78452; 93017; 93306; A9500; Q9957; A4216; C8929; J2785; J3490

== ENCOUNTER 2021-01-22 07:35 | Emergency (ER) | payer BC, MEDICAID, SELFPAY ==
[2021-01-22 07:36] VITALS: BP 180/103; PULSE 74; RESP 16; TEMP 36.7; O2SAT 100; BMI 34.7
--- NOTE | 2021-01-22 07:54 | EKG12_ITS ---
Test Reason : HTN Blood Pressure : / mmHG Vent. Rate : 070 BPM Atrial Rate : 070 BPM P-R Int : 156 ms QRS Dur : 108 ms QT Int : 382 ms P-R-T Axes : 023 032 012 degrees QTc Int : 412 ms Normal sinus rhythm Inferior infarct , age undetermined Abnormal ECG Confirmed by MAXIM MORILLO, ALVERTO ([id number]), map editor STEPHANIE DESIR ([id number]) on 01/24/2021 10:59:00 AM Referred By: DHRUV Confirmed By:ALVERTO PAN MD
--- NOTE | 2021-01-22 07:55 | CT_ITS ---
STUDY: CTA HEAD AND NECK WITH CONTRAST REASON FOR EXAM: Male, 45 years old. Concern for central vertigo. Dizziness with nausea. RADIATION DOSAGE (If Supplied By Facility): CTDIvol = ( 28.43 ) mGy, DLP = ( 1627.44 ) mGycm TECHNIQUE: CT angiography was performed with a multi-detector CT scanner. Data acquisition was obtained from the skull base through the vertex following intravenous administration of IV 100mL Isovue-370. MIP images were reconstructed from the axial data set. Post-processing of the angiographic images was performed, with multiplanar reformation and 3D reconstruction. Individualized dose optimization techniques were used for this CT. COMPARISON: No relevant priors. FINDINGS: Normal bilateral petrous carotid arteries. Normal right cavernous carotid artery with a normal supraclinoid bifurcation. Normal left cavernous carotid artery with a normal supraclinoid bifurcation. Normal right A1 segments of the anterior cerebral artery. Normal left A1 segments of the anterior cerebral artery. Normal intact anterior communicating artery (ACOM). Normal bilateral A2 segments of the anterior cerebral arteries. Normal right M1 and M2 segments of the middle cerebral arteries, with a normal M1 bifurcation. Normal left M1 and M2 segments of the middle cerebral arteries, with a normal M1 bifurcation. Normal right posterior communicating artery (PCOM). Normal left posterior communicating artery (PCOM). Normal bilateral vertebral arteries. Normal basilar artery with a normal basilar bifurcation. The visualized bilateral superior cerebellar (SCA) arteries are normal. Normal bilateral P1, P2 and visualized P3 segments of the posterior cerebral arteries. There is no demonstrated aneurysm of the [place] of [place]. There is no demonstrated abnormality of the visualized brain. Is evidence of a 1.7 cm polyp or retention cyst in the right maxillary sinus. AORTIC ARCH: Normal visualized aortic arch. Normal origins of the brachiocephalic, left common carotid, and left subclavian arteries. RIGHT CAROTID ARTERIES: Normal right common carotid artery (CCA). Normal right common carotid bulb. Normal origin of the right internal carotid (ICA) artery without a hemodynamically significant stenosis. Normal visualized cervical portion of the right internal carotid artery. Normal origin of the right external carotid artery (ECA). LEFT CAROTID ARTERIES: Normal left common carotid artery (CCA). Normal left common carotid bulb. Normal origin of the left internal carotid (ICA) artery without a hemodynamically significant stenosis. Normal visualized cervical portion of the left internal carotid artery. Normal origin of the left external carotid artery (ECA). VERTEBRAL ARTERIES: Normal bilateral vertebral arteries. CT/CTA Head AND Neck W/ Contrast IMPRESSION: Normal CTA Head and neck with contrast. Electronically Signed: Harry Gaming MD at 9:20 EDT , Service support ,
--- NOTE | 2021-01-22 07:56 | EX.ED.DYSGE1 ---
HPI History of Present Illness Chief Complaint: Dizziness Informant: patient Narrative Narrative: Patient is a 45-year-old male with history of coronary artery disease status post stenting, peripheral vascular disease, diabetes mellitus type 2, hypertension, hyperlipidemia and endocarditis of mitral valve presenting for dizziness. Patient states he woke up at 5:30 AM to go the restroom he felt very dizzy and nauseous. He went back to sleep and woke up again at 6 AM with the same symptoms. States it feels like he is drunk. He notes he feels clammy and hot with it. It is worse when he moves his head but not in any particular direction. Patient states he felt fine yesterday. He denies any ear pain. He notes he has chronic tinnitus which is unchanged. He denies any associated chest pain, shortness of breath or difficulty breathing. Patient did have Covid 5 weeks ago and states he felt really sick for 2 weeks but seems to have recovered fully. No other complaints at this time. [facility] Medical History Anxiety Asymmetric septal hypertrophy Atherosclerotic heart disease of [place] coronary artery without angina pectoris Cellulitis of left lower leg Dehydration Diabetes Endocarditis of mitral valve (02/2019) Essential hypertension Former smoker History of streptococcal infection Hyperlipidemia Hypertension Intractable back pain Lumbar radiculopathy Near syncope Obesity (BMI 30-39.9) Paraspinal abscess (02/2019) PVD (peripheral vascular disease) Type 2 diabetes mellitus Ulcer of left lower extremity with muscle involvement without evidence of necrosis Home Medications aspirin 81 mg PO DAILY@0800 03/07/20 [History Last Taken 03/07/20 09:00] atorvastatin 40 mg PO QHS 03/07/20 [History Last Taken 03/06/20 21:30] bupropion HCl 300 mg PO QHS 03/07/20 [History Last Taken 03/06/20 21:30] insulin lispro 2 unit IN CONT 03/07/20 [History Last Taken 03/07/20] ticagrelor 90 mg PO BID 03/07/20 [History Last Taken 03/07/20 09:00] lisinopril 20 mg tablet 20 mg PO DAILY tab 12/13/20 [History Last Taken Unknown] metformin 1,000 mg tablet 1,000 mg PO BID tab 12/13/20 [History Last Taken Unknown] metoprolol succinate 25 mg tablet,extended release 24 hr 25 mg PO DAILY #90 tab 12/13/20 [Rx Last Taken Unknown] ropinirole 1 mg tablet 1 mg PO QHS tab 12/13/20 [History Last Taken Unknown] meclizine 25 mg PO TID PRN #20 tab 01/22/21 [Rx Last Taken Unknown] ondansetron 4 mg PO Q6H PRN #14 tab 01/22/21 [Rx Last Taken Unknown] Allergy/AdvReac Type Severity Reaction Status Date / Time No Known Allergies Allergy Verified 01/22/21 07:38 Family History Father CAD (coronary artery disease) CABG Myocardial infarction, Onset Age: 40 Mother CAD (coronary artery disease) multiple toma stents Myocardial infarction Surgical History History of coronary artery stent placement (03/16/19) Social History Smoking Status: Former smoker ROS ROS ED Constitutional Constitutional ED: Reports sweats; Denies chills or fever(s) Eyes Eyes: Denies blurry vision, change in vision or diplopia ENT ENT ED: Denies ear pain, rhinorrhea or sore throat Cardiovascular Cardiovascular: Denies chest pain or palpitations Respiratory/Chest Respiratory/Chest: Denies cough or dyspnea Gastrointestinal Gastrointestinal: Reports nausea; Denies abdominal pain or vomiting Genitourinary Genitourinary ED: Denies dysuria or hematuria Musculoskeletal Musculoskeletal: Denies arthralgias or myalgias Integumentary Denies rash Neurologic Neurologic: Reports other Details: vertigo ; Denies headache(s), paresthesias or weakness Psychiatric Psychiatric: Denies depression EXAM Physical Exam Const Vital Signs: 01/22/21 07:36 01/22/21 07:50 Temperature 98.1 F Temperature Source Oral Pulse Rate 74 Respiratory Rate 16 Respiratory Effort Normal Non-Labored Respiratory Pattern Normal Blood Pressure 180/103 H Blood Pressure Mean 128 Pulse Ox 100 Oxygen Delivery Method Room Air Positive well nourished and well developed General Appearance ED: well developed HEENT HEENT Narrative: Intermittent horizontal nystagmus with bidirectional gaze Negative for tenderness Tympanic Membrane ED: Yes TM's clear right (injected ) Eyes PERRL and EOMs intact bilaterally Neck no lymphadenopathy and supple Chest Wall inspection of chest normal Resp normal respiratory effort and clear to auscultation bilaterally Cardio regular rate, regular rhythm and no murmurs GI normal to inspection, nondistended, normoactive bowel sounds Extremity normal to inspection General Extremety ED: Negative for edema or tenderness General Extremity: Negative for edema Neuro oriented x3, CN's II-XII intact bilaterally and no sensory deficits noted Neuro Narrative: NIH= 0. No truncal ataxia. Normal [id number]. Sensorium / Orientation: alert Motor Exam: strength 5/5 throughout Skin no rashes or lesions noted MDM MDM MDM Narrative Medical decision making narrative: Patient is evaluated for dizziness. Seems to be vertigo. Not able to reproduce the symptoms with Fozia maneuver however when patient moves around or moves his head the symptoms are worsened. He is given meclizine with improvement of symptoms however he still has some residual nausea. Is given Zofran. Given his history of coronary artery disease and peripheral vascular disease as well as recent Covid work-up including troponin, CBC and CMP obtained. This grossly normal. CT of the head and neck obtained looking for any aneurysm or venous sinus thrombosis. This is negative. I do not suspect a central process with a negative CT. Patient is counseled that the only way to know 100% is to get an MRI, and patient is offered admission however he declined stating he will just try symptomatic treatment. In addition patient is already on a statin, aspirin and antiplatelet therapy. I do have a low suspicion for central process and think this is likely peripheral vertigo. He is given a prescription for Zofran and meclizine. Counseled on return precautions. Lab Data Attestation: I reviewed the patient's lab results. Labs: Laboratory Results - last 24 hr 01/22/21 01/22/21 01/22/21 08:13 08:13 08:13 WBC 5.6 RBC 4.95 Hgb 13.9 Hct 43.2 MCV 87.3 MCH 28.1 MCHC 32.2 RDW Std Deviation 42.2 RDW Coeff of [place] 13.2 Plt Count 207 MPV 10.9 Immature Gran % (Auto) 1.100 H Neut % (Auto) 70.7 H Lymph % (Auto) 14.4 L [place] % (Auto) 10.6 H Eos % (Auto) 2.5 Baso % (Auto) 0.7 Absolute Neuts (auto) 3.9 Absolute Lymphs (auto) 0.80 L Nucleated RBC % 0 PT 13.0 INR 1.0 Sodium 137 Potassium 4.3 Chloride 105 Carbon Dioxide 25.0 Anion Gap 7 BUN 17 Creatinine 0.96 Estim Creat Clear Calc 121.81 Est GFR (MDRD) Af Amer 110 Est GFR (MDRD) Non-Af 91 BUN/Creatinine Ratio 17.8 Glucose 256 H Calcium 8.7 Total Bilirubin 0.40 AST 10 L ALT 20 Alkaline Phosphatase 73 Troponin I High Sens 11 Total Protein 7.1 Albumin 3.3 Globulin 3.8 Albumin/Globulin Ratio 0.9 Radiography Chest X-Ray - ED: 1 View, Read by ED Physician, Read by Radiologist and Normal Diagnostic Testing: Radiology Impression Head/Neck CTA 01/22/21 07:55 IMPRESSION: Normal CTA Head and neck with contrast. Electronically Signed: Harry Gaming MD at 9:20 EDT , Service support , Chest X-Ray 01/22/21 09:05 IMPRESSION: Normal x-ray examination of the chest. Electronically Signed: Harry Gaming MD at 9:20 EDT , Service support , Rhythm Strip Rhythm Strip: Sinus Rhythm Rate: 70 Ectopy: None EKG Initial EKG: Attestation: I personally reviewed and interpreted this EKG as follows: Interpretation: Sinus Rhythm Comments: Normal sinus rhythm at a rate of 70 Normal axis Normal intervals Normal ST segments Nonspecific T wave inversion in 3 and aVR No changes compared to prior EKG on 10/25/2020 Discharge Plan Triage Chief Complaint: Dizziness ED Provider: Daina Bagley Dx/Rx/DC Orders Clinical Impression: Peripheral vertigo, Nausea Instructions: ED BPV Vertigo Prescriptions: New meclizine 25 mg tablet 25 mg PO TID PRN (Reason: dizziness) Qty: 20 RF: 0 ondansetron 4 mg tablet,disintegrating 4 mg PO Q6H PRN (Reason: nausea and vomiting) Qty: 14 RF: 0 No Action lisinopril 20 mg tablet 20 mg PO DAILY RF: 0 metformin 1,000 mg tablet 1,000 mg PO BID RF: 0 ropinirole 1 mg tablet 1 mg PO QHS RF: 0 metoprolol succinate [Toprol XL] 25 mg tablet extended release 24 hr 25 mg PO DAILY Qty: 90 RF: 3 atorvastatin 40 MG tablet 40 mg PO QHS RF: 0 aspirin 81 MG tablet 81 mg PO DAILY@0800 RF: 0 insulin lispro 100 UNIT/ML solution 2 unit IN CONT RF: 0 bupropion HCl 300 MG tablet extended release 24 hr 300 mg PO QHS RF: 0 ticagrelor 90 MG tablet 90 mg PO BID RF: 0 Primary Care Provider: Rory Greenfield Referrals: Rory Greenfield MD [Primary Care Provider] - Activity Restrictions/Additional Instructions: Return the emergency room if you develop any worsening symptoms. Disposition Disposition: Home, Self Care
[2021-01-22] MEDS: Meclizine HCl 25 MG Tablet PO (08:16)
[2021-01-22 08:19] LABS: Absolute Neutrophil Count 3.9 X10^3/uL (2.0-7.7); Basophil# 0.04 X10^3/uL; Basophil% 0.7 % (0-1); Eosinophil# 0.14 X10^3/uL; Eosinophils% 2.5 % (0-5); Hematocrit 43.2 % (40-54); Hemoglobin 13.9 g/dL (13.0-16.5); Lymphocyte % 14.4 % (19-41); Mean Corp Hgb Conc 32.2 g/dL (32-36); Mean Corpuscular Hgb 28.1 pg (27.0-32.0); Mean Corpuscular Volume 87.3 fL (80-94); Mean Platelet Vol. 10.9 fl (6.2-12.0); Monocyte# 0.59 X10^3/uL; Monocyte% 10.6 % (0-10); NRBC Flagged by Analyzer 0 % (0-5); Neutrophil # 3.93 X10^3/uL (2.7-7.7); Neutrophil % 70.7 % (47-70); Platelet Count 207 K/mm3 (150-450); RBC Distribution Width CV 13.2 % (11.6-14.6); RBC Distribution Width SD 42.2 fl (35.1-43.9); Red Blood Count 4.95 M/mm3 (4.6-6.2); White Blood Count 5.6 K/mm3 (4.4-11.0)
[2021-01-22 08:38] LABS: ALB/GLOB Ratio 0.9 RATIO (0.9-2.4); AST(SGOT) 10 U/L (15-37); Alanine Aminotransfer ALT/SGPT 20 U/L (16-61); Albumin, Serum 3.3 g/dL (3.2-5.0); Alkaline Phosphatase 73 U/L (45-117); Anion Gap 7 (5-15); BUN 17 mg/dL (7-18); BUN/Creat Ratio 17.8 RATIO (10-20); Calcium,Total 8.7 mg/dL (8.5-10.1); Chloride 105 mmol/L (98-107); Creatinine, Serum 0.96 mg/dL (0.70-1.30); EST Glomerular Filtration Rate 91 mL/min (>60); Est Glom Filt Rate - Afr Amer 110 mL/min (>60); Estimated Creatinine Clearance 121.81 ml/min; Globulin 3.8 g/dL (2.2-4.2); Glucose 256 mg/dL (74-106); Potassium 4.3 mmol/L (3.5-5.1); Protein, Total 7.1 g/dL (6.4-8.2); Sodium Level 137 mmol/L (136-145); Troponin-I HS 11 pg/mL (3.0-78.0)
--- NOTE | 2021-01-22 09:05 | RAD_ITS ---
STUDY: X-RAY CHEST REASON FOR EXAM: Male, 45 years old. Vertigo TECHNIQUE: Single AP portable view of the chest. COMPARISON: Comparison is made with prior study dated 10/25/2020. FINDINGS: EKG electrodes are seen. The lungs are clear and expanded. There is no demonstrated pleural abnormality. Normal size heart. Normal mediastinum and tom. Normal visualized pulmonary arteries. Normal visualized aortic arch and descending thoracic aorta. There are mild degenerative changes of the visualized thoracic spine. Normal visualized ribs, clavicles, and shoulders. There is no demonstrated abnormality of the visualized soft tissue structures of the upper abdomen. RAD/Chest 1 View (Portable) IMPRESSION: Normal x-ray examination of the chest. Electronically Signed: Harry Gaming MD at 9:20 EDT , Service support ,
[2021-01-22 09:47] VITALS: BP 148/91; PULSE 67; RESP 16; O2SAT 97
[2021-01-22] MEDS: Ondansetron 4 MG/2 ML Vial IV (10:01)
[2021-01-22 10:04] VITALS: BP 156/87; PULSE 61
== END 2021-01-22 10:05 | disposition home or self-care (01) ==
PROVIDERS: Emergency Provider Emergency Medicine; PCP Family Medicine
DX: H81.399 Other peripheral vertigo, unspecified ear (principal); I25.10 Atherosclerotic heart disease of native coronary artery without angina pectoris; E11.51 Type 2 diabetes mellitus with diabetic peripheral angiopathy without gangrene; I10 Essential (primary) hypertension; E78.5 Hyperlipidemia, unspecified; M54.16 Radiculopathy, lumbar region; F41.9 Anxiety disorder, unspecified; E66.9 Obesity, unspecified; Z68.30 Body mass index [BMI] 30.0-30.9, adult; Z79.02 Long term (current) use of antithrombotics/antiplatelets; Z79.82 Long term (current) use of aspirin; Z79.4 Long term (current) use of insulin; Z79.899 Other long term (current) drug therapy; Z86.16 Personal history of COVID-19; Z87.891 Personal history of nicotine dependence; Z95.5 Presence of coronary angioplasty implant and graft
CPT/HCPCS: 70496; 70498; 71045; 80053; 84484; 85025; 85610; 93005; 96374; 99285; Q9967; A4216; J2405

== ENCOUNTER → 2021-04-23 09:43 | Outpatient (CLI) | payer BC, MEDICAID, SELFPAY ==
[2021-04-23 12:32] LABS: Vitamin D,25 Hydroxy 22.6 ng/mL
[2021-04-23 12:37] LABS: Microalbumin,Random Urine 53.9 mg/L (NO RANGE EST.); Microalbumin:Creatinine Ratio 48.6 mg/g CRE (<30 mg/g CRE)
[2021-04-23 12:44] LABS: ALB/GLOB Ratio 0.8 RATIO (0.9-2.4); AST(SGOT) 10 U/L (15-37); Alanine Aminotransfer ALT/SGPT 20 U/L (16-61); Albumin, Serum 3.4 g/dL (3.2-5.0); Alkaline Phosphatase 69 U/L (45-117); Anion Gap 5 (5-15); BUN 19 mg/dL (7-18); BUN/Creat Ratio 19.8 RATIO (10-20); Calcium,Total 9.3 mg/dL (8.5-10.1); Chloride 107 mmol/L (98-107); Cholesterol 116 mg/dL (200); Creatinine, Serum 0.96 mg/dL (0.70-1.30); EST Glomerular Filtration Rate 91 mL/min (>60); Est Glom Filt Rate - Afr Amer 110 mL/min (>60); Glucose 195 mg/dL (74-106); High Density Lipoprotein 48 mg/dL; Potassium 4.9 mmol/L (3.5-5.1); Protein, Total 7.4 g/dL (6.4-8.2); Sodium Level 137 mmol/L (136-145); Triglycerides 94 mg/dL; Very Low Density Lipoprotein 19 mg/dL (5-40)
[2021-04-24 14:09] LABS: C-Peptide 1.8 ng/mL (1.1-4.4)
== END ==
PROVIDERS: PCP Family Medicine; Referring Provider Internal Medicine Endocrinology, Diabetes & Metabolism; Visit Provider Internal Medicine Endocrinology, Diabetes & Metabolism
DX: E11.9 Type 2 diabetes mellitus without complications (principal); I10 Essential (primary) hypertension; E78.5 Hyperlipidemia, unspecified; E55.9 Vitamin D deficiency, unspecified
CPT/HCPCS: 36415; 80053; 80061; 82043; 82306; 82570; 84443; 84681

== ENCOUNTER → 2021-11-28 | Outpatient (CLI) | payer MEDICAID, SELFPAY ==
[2021-11-28 16:37] LABS: Hematocrit 39.3 % (40-54); Hemoglobin 12.9 g/dL (13.0-16.5); Mean Corp Hgb Conc 32.8 g/dL (32-36); Mean Corpuscular Hgb 27.9 pg (27.0-32.0); Mean Corpuscular Volume 84.9 fL (80-94); Platelet Count 238 K/mm3 (150-450); RBC Distribution Width CV 13.4 % (11.6-14.6); RBC Distribution Width SD 41.4 fl (35.1-43.9); Red Blood Count 4.63 M/mm3 (4.6-6.2); White Blood Count 6.2 K/mm3 (4.4-11.0)
[2021-11-28 18:36] LABS: Anion Gap 5 (5-15); BUN 20 mg/dL (7-18); BUN/Creat Ratio 19.8 RATIO (10-20); Calcium,Total 8.6 mg/dL (8.5-10.1); Chloride 107 mmol/L (98-107); Creatinine, Serum 1.01 mg/dL (0.70-1.30); EST Glomerular Filtration Rate 85 mL/min (>60); Est Glom Filt Rate - Afr Amer 103 mL/min (>60); Glucose 206 mg/dL (74-106); Potassium 4.6 mmol/L (3.5-5.1); Sodium Level 138 mmol/L (136-145)
== END | disposition home or self-care (01) ==
LOC: LAB 15:49
PROVIDERS: PCP Family Medicine; Visit Provider Physician Assistant Medical
DX: E86.0 Dehydration (principal); I95.9 Hypotension, unspecified; R42 Dizziness and giddiness
CPT/HCPCS: 36415; 80048; 85027

== ENCOUNTER → 2021-12-07 | Outpatient (CLI) | payer MEDICAID, SELFPAY ==
[2021-12-07 17:40] LABS: Absolute Lymphocyte Count 1.18 X10^3/uL (0.83-4.51); Absolute Neutrophil Count 3.7 X10^3/uL (2.0-7.7); Basophil# 0.04 X10^3/uL; Basophil% 0.7 % (0-1); Eosinophil# 0.12 X10^3/uL; Eosinophils% 2.1 % (0-5); Hematocrit 40.9 % (40-54); Hemoglobin 13.4 g/dL (13.0-16.5); Lymphocyte # 1.18 X10^3/ul (0.83-4.51); Lymphocyte % 20.9 % (19-41); Mean Corp Hgb Conc 32.8 g/dL (32-36); Mean Corpuscular Hgb 28.1 pg (27.0-32.0); Mean Corpuscular Volume 85.7 fL (80-94); Mean Platelet Vol. 11.1 fl (6.2-12.0); Monocyte# 0.57 X10^3/uL; Monocyte% 10.1 % (0-10); NRBC Flagged by Analyzer 0 % (0-5); Neutrophil # 3.66 X10^3/uL (2.7-7.7); Platelet Count 257 K/mm3 (150-450); RBC Distribution Width CV 13.4 % (11.6-14.6); Red Blood Count 4.77 M/mm3 (4.6-6.2); White Blood Count 5.6 K/mm3 (4.4-11.0)
[2021-12-07 18:05] LABS: ALB/GLOB Ratio 0.9 RATIO (0.9-2.4); AST(SGOT) 14 U/L (15-37); Alanine Aminotransfer ALT/SGPT 23 U/L (16-61); Albumin, Serum 3.6 g/dL (3.2-5.0); Alkaline Phosphatase 71 U/L (45-117); Anion Gap 5 (5-15); BUN 19 mg/dL (7-18); BUN/Creat Ratio 19.2 RATIO (10-20); Calcium,Total 9.1 mg/dL (8.5-10.1); Chloride 105 mmol/L (98-107); Creatinine, Serum 0.99 mg/dL (0.70-1.30); EST Glomerular Filtration Rate 87 mL/min (>60); Est Glom Filt Rate - Afr Amer 105 mL/min (>60); Globulin 3.9 g/dL (2.2-4.2); Glucose 68 mg/dL (74-106); Lipase 68 U/L (73-393); Potassium 4.5 mmol/L (3.5-5.1); Protein, Total 7.5 g/dL (6.4-8.2); Sodium Level 139 mmol/L (136-145)
== END | disposition home or self-care (01) ==
LOC: MFPLAB 15:42
PROVIDERS: PCP Family Medicine; Referring Provider Family Medicine; Visit Provider Family Medicine
DX: R10.11 Right upper quadrant pain (principal)
CPT/HCPCS: 36415; 80053; 83690; 85025

== ENCOUNTER → 2021-12-21 | Outpatient (CLI) | payer MEDICAID, SELFPAY ==
[2021-12-21 10:04] LABS: Anion Gap 5 (5-15); BUN 32 mg/dL (7-18); BUN/Creat Ratio 25.2 RATIO (10-20); Calcium,Total 9.2 mg/dL (8.5-10.1); Chloride 106 mmol/L (98-107); Creatinine, Serum 1.27 mg/dL (0.70-1.30); EST Glomerular Filtration Rate 65 mL/min (>60); Est Glom Filt Rate - Afr Amer 79 mL/min (>60); Glucose 211 mg/dL (74-106); Sodium Level 135 mmol/L (136-145)
[2021-12-21 10:09] LABS: Free T3 2.6 pg/mL (2.18-3.98); T4 Free Direct 0.95 ng/dL (0.76-1.46); Thyroid Stim Hormone (TSH) 1.34 uIU/mL (0.358-3.74)
[2021-12-26 19:07] LABS: Aldosterone, Serum 6.7 ng/dL (0.0-30.0)
[2021-12-27 08:47] LABS: Renin, Plasma 6.812 ng/mL/hr (0.167-5.380)
== END | disposition home or self-care (01) ==
LOC: LAB 09:12
PROVIDERS: PCP Family Medicine; Referring Provider Physician Assistant Medical; Visit Provider Physician Assistant Medical
DX: I95.9 Hypotension, unspecified (principal); R42 Dizziness and giddiness; E86.0 Dehydration
CPT/HCPCS: 36415; 80048; 82088; 84244; 84439; 84443; 84481

== ENCOUNTER → 2021-12-22 | Outpatient (CLI) | payer MEDICAID, SELFPAY | END | disposition home or self-care (01) | LOC: MTLAB 10:31 → LAB 10:31 | PROVIDERS: PCP Family Medicine; Visit Provider Internal Medicine Endocrinology, Diabetes & Metabolism | DX: R42 Dizziness and giddiness (principal) | CPT/HCPCS: 36415; 82533 ==

== ENCOUNTER → 2021-12-27 | Outpatient (CLI) | payer MEDICAID, SELFPAY ==
--- NOTE | 2021-12-31 16:19 | TILTTABLE_ITS ---
Staff Staff: Chayo Contreras Summary Pre Test Resting HR: 90 Pre Test Resting BP: 149/84 Minimum Test HR: 77 Maximum Test HR: 100 Minimum Test BP: 146/82 Maximum Test BP: 184/92 Reason for Test Termination: Reached Maximum Test Time Physician Tilt Table Report Patient's Physicians Primary Care Physician: Rory Greenfield In Classroom Tutor: Kristopher Haq Indications/Diagnosis: Syncope Procedure Comments: The patient was brought to the noninvasive lab in the head upright tilt position. Initial EKG demonstrated normal sinus rhythm with a rate of 76 bpm and initial blood pressure of 177/99 mmHg. The patient was then plac ed in the 70 degree head upright tilt position for approximately 20 minutes. The heart rate initially was noted to be 90 bpm with a blood pressure 149/84 mmHg and sinus rhythm. Patient complained of mild nausea. Throughout the test the patient maintained heart rate in the 90s. The blood pressure also remained above 140 systolic. Patient complained of periods of trembling and nausea. No bradycardia arrhythmias or syncopal episodes were noted or drops in blood pressure which were significant were noted. The highest heart rate was 100 bpm with the highest blood pressure recorded at 184/92 mmHg. The patient was put back in the recumbent position and remained asymptomatic. Summary: Negative tilt table test with no significant hemodynamic changes.
[2021-12-31 16:23] VITALS: BP 146/82; BP 149/84; BP 184/92
== END | disposition home or self-care (01) ==
LOC: CVS 09:39
PROVIDERS: PCP Family Medicine; Referring Provider Internal Medicine Cardiovascular Disease; Visit Provider Internal Medicine Cardiovascular Disease
DX: R55 Syncope and collapse (principal); I95.9 Hypotension, unspecified; E86.0 Dehydration; R42 Dizziness and giddiness; R00.2 Palpitations; R09.89 Other specified symptoms and signs involving the circulatory and respiratory systems
CPT/HCPCS: 93660; J7040; A4216

== ENCOUNTER 2022-06-12 10:00 | Outpatient (RCR) | payer MEDICAID, SELFPAY ==
--- NOTE | 2022-04-11 10:06 | HP.PTEVAL ---
Patient's Visit Information TA PATTEN is a 46 year old M referred to Physical Therapy by Dr. 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 Date of Evaluation: 04/11/22 Physical Therapist: Baljit Colón DPT - Visit Plan Frequency: 2x /Week Duration: 6 Weeks Plan: Start with light progressive walking program. I want him to progress as more habituation rather than push through his symptoms. I want him working on exercise progression in attempt to lower resting HP and HR to reduce large fluctuations in BP with positional changes. - Subjective Pt. 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 Pt. is newly diagnosed with his diabetic autonomic polyneuropathy ~2 months ago. Early this year he was diagnosed with an infection in his distal RLE after chronic fractures in his foot. Ultimately he had a below knee amputation. After this he has reduced overall mobility and daily activity. 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 He is now off work and filing for disability. He reports his A1C is improving around 6.1 at last visit. His largest complaint now is his intermittent drop in blood pressure, but more so his chronic intermittent ill feeling. Decreases symptoms: lying down, but not all ways. No relief with medications. Increases symptoms: activities, but no specific movements, more just activity in general. He reports BP has been all over the place sometimes it is high and others it is really now. He does reports frequent dizziness with getting up and down, usually relieves with in 1-2 minutes. Pt. is hopeful to reduce this symptom allowing him better tolerance to daily activities. - Pain R LE Pain Intensity (Out of 10): 2 Pain Intensity Range: 2, 5 - Objective POSTURE: Pt. has FH posture, slight increase in L sided wt. shifting. Pt. has mild increase in thoracic kyphosis. All minor. PALPATION: Pt. major pain with palpation of LEs. Pt. educated in skin checks as well. NEURO: Pt. okay sensation in LLE, less in distal LE. Pt. has 2+ L achilles and patellar DTR. No myotomal weakness in LLE. ROM: normal L ankle and knee ROM. Pt. has some tightness in his B HS,but again not major. MMT: Pt. has good strength 5/5 throughout BLEs. Core strength- poor+. GAIT: Pt. has decent gait pattern with out major limitations. BP at rest: 135/89 prior to walking, after 6 min walk test: 108/65. - Balance/Special Test Scores Lower Extremity Functional Score: 26 6 Minute Walk Test: 1008feet. Pt. reports having increased ill feeling after walking. BP 108/65 after walking - Goals Goal 1:: LTG: Pt. to be I with HEP and a progressive walking program. Goal Time Frame: 4-6 Weeks Goal 2:: STG: Pt. to be able to walk for 6 minutes with minimal feeling of illness. Goal Time Frame: 2-4 Weeks Goal 3:: LTG: Pt. to ambulate for 20 minutes without increase in symptoms. Goal Time Frame: 4-6 Weeks Goal 4:: LTG: Pt. to have decreased light headed feeling with initial standing. Goal Time Frame: 4-6 Weeks - Rehabilitation Potential Physical Therapy Diagnosis: Pt. 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 Pt. had an unexpected drop in BP with his walking. He did feel a bit more ill after this, but did calm down and BP was better upon rechecking. He reports that his BP will be all over the map at times. From what I saw today, I would like to work on slowly progressing with a walking program/fitness program. Rehabilitation Potential: Good - Anticipated Interventions Patient/Client Instruction: Educate patient on: Condition, Plan of Care, Risk Factors, Benefits of Fitness Program For the Purpose of:: To improve decision making, To facilitate caregiver knowledge, To improve self management, To prevent re-injury, To improve ability to perform tasks related to life management, To improve tolerance to ADL's Therapeutic Exercise to Include: Strength training, Endurance training For the Purpose of:: To increase ROM, To improve nutrient delivery to tissue, To increase oxygenation perfusion, To improve ability to perform ADL's, To improve performance and independence with ADL's, To decrease level of supervision to perform tasks, To improve ability of physical actions for home/community/work/leisure Thank you for the opportunity to evaluate your patient. For Medicare and Medicare HMO plans, please review the plan of care and approve it. It will need to be FAXED BACK to us at [phone] for Medicare purposes. For Medicare only, by signing this I certify the plan of care. Please let me know if there are questions or concerns regarding this plan of care. Physician Signature: Date:
== END 2022-06-12 19:00 | disposition home or self-care (01) ==
LOC: PT 10:00
PROVIDERS: PCP Family Medicine; Referring Provider Internal Medicine Endocrinology, Diabetes & Metabolism; Visit Provider Internal Medicine Endocrinology, Diabetes & Metabolism
DX: E11.43 Type 2 diabetes mellitus with diabetic autonomic (poly)neuropathy (principal)
CPT/HCPCS: 97110; 97161

== ENCOUNTER 2022-09-17 14:45 | Outpatient (CLI) | payer MEDICAID, SELFPAY ==
--- NOTE | 2022-09-17 14:47 | ECHOD_ITS ---
Reason For Study: MURMUR Procedure This was a 2D Doppler, Color Flow transthoracic echocardiogram. Exam performed in department. Left Ventricle Normal LV size. Moderate concentric left ventricular hypertrophy. Left ventricular systolic function is normal. The estimated ejection fraction is 60 %. Resting gradient is 20 mmHg across the left ventricular outflow tract and with Valsalva increases to 41 mmHg. No regional wall motion abnormalities noted. Right Ventricle Normal RV size. Normal systolic function. Atria Normal left atrium. Normal right atrium. Mitral Valve Systolic anterior motion of the mitral valve. Tricuspid Valve Normal tricuspid valve. Aortic Valve Trisinus/trileaflet aortic valve. Pulmonic Valve Mild focal pulmonic valve thickening. Great Vessels Normal aortic root. The pulmonary artery is normal size. Normal inferior vena cava. Pericardium/Pleural No pericardial effusion. MMode/2D Measurements & Calculations LVIDd: 4.7 cm IVSd: 1.4 cm Ao root diam: 3.1 cm LVIDs: 3.2 cm LVPWd: 1.5 cm FS: 31.9 % LAV(MOD-bp): 54.6 ml LVAd ap4: 43.5 cm2 SV(MOD-sp4): 86.6 ml LAV(MOD-bp) Indexed: 21.2 ml/m2 LVLd ap4: 9.6 cm LAV(MOD-sp2): 51.8 ml EDV(MOD-sp4): 155.8 ml LAV(MOD-sp4): 59.1 ml EDV(sp4-el): 167.2 ml LVAs ap4: 25.8 cm2 LVLs ap4: 7.9 cm ESV(MOD-sp4): 69.2 ml ESV(sp4-el): 72.0 ml EF(MOD-sp4): 55.6 % EF(sp4-el): 57.0 % SV(sp4-el): 95.2 ml LA A4 area: 19.8 cm2 LA dimension(2D): 4.9 cm RA A4 area: 11.6 cm2 Time Measurements MV dec time: 0.20 sec Doppler Measurements & Calculations MV E max joe: 88.0 cm/sec Lat Peak E' Joe: 12.2 cm/sec Med Peak E' Joe: 8.6 cm/sec MV A max joe: 65.9 cm/sec E/E' lat: 7.2 E/E' med: 10.2 MV E/A: 1.3 MV V2 max: 89.3 cm/sec Ao V2 max: 165.2 cm/sec MV max P.2 mmHg MV dec slope: 436.5 cm/sec2 Ao max P.9 mmHg MV V2 mean: 56.5 cm/sec Ao V2 mean: 133.0 cm/sec MV mean P.4 mmHg Ao mean P.6 mmHg MV V2 VTI: 28.6 cm Ao V2 VTI: 43.5 cm PA V2 max: 134.6 cm/sec PA V2 mean: 95.5 cm/sec ECHO/Echo Complete Interpretation Summary Normal LV size. Left ventricular systolic function is normal. The estimated ejection fraction is 60 %. Moderate concentric left ventricular hypertrophy. Resting gradient is 20 mmHg across the left ventricular outflow tract and with Valsalva increases to 41 mmHg. Ordering Physician: Rory Greenfield Referring Physician: Rory Greenfield Performed By: Diana Dodson RCS
== END 2022-09-17 23:59 | disposition home or self-care (01) ==
PROVIDERS: PCP Family Medicine; Referring Provider Family Medicine; Visit Provider Family Medicine
DX: R01.1 Cardiac murmur, unspecified (principal); I10 Essential (primary) hypertension
CPT/HCPCS: 36415; 80048; 80061; 93306

== ENCOUNTER → 2022-09-17 | Outpatient (CLI) | payer MEDICAID, SELFPAY ==
[2022-09-17 15:19] LABS: Anion Gap 6 (5-15); BUN 21 mg/dL (7-18); BUN/Creat Ratio 17.8 RATIO (10-20); Calcium,Total 9.1 mg/dL (8.5-10.1); Chloride 103 mmol/L (98-107); Cholesterol 141 mg/dL (200); Creatinine, Serum 1.18 mg/dL (0.70-1.30); EST Glomerular Filtration Rate 71 mL/min (>60); Est Glom Filt Rate - Afr Amer 86 mL/min (>60); Glucose 142 mg/dL (74-106); High Density Lipoprotein 42 mg/dL; Potassium 4.9 mmol/L (3.5-5.1); Sodium Level 137 mmol/L (136-145); Triglycerides 157 mg/dL; Very Low Density Lipoprotein 31 mg/dL (5-40)
== END | disposition home or self-care (01) ==
LOC: LAB 13:59
PROVIDERS: PCP Family Medicine; Referring Provider Family Medicine; Visit Provider Family Medicine
DX: I10 Essential (primary) hypertension (principal)
CPT/HCPCS: 80048; 80061; 36415

== ENCOUNTER → 2023-12-24 | Outpatient (CLI) | payer BC, SELFPAY | END | disposition home or self-care (01) | LOC: SL 09:58 | PROVIDERS: PCP Family Medicine; Referring Provider Student in an Organized Health Care Education/Training Program; Visit Provider Student in an Organized Health Care Education/Training Program | DX: G47.10 Hypersomnia, unspecified (principal) | CPT/HCPCS: 95806 ==

== ENCOUNTER → 2024-04-02 | Outpatient (CLI) | payer MEDICARE, BC, SELFPAY | END | disposition home or self-care (01) | PROVIDERS: PCP Family Medicine; Referring Provider Nurse Practitioner Acute Care; Visit Provider Nurse Practitioner Acute Care | DX: G47.33 Obstructive sleep apnea (adult) (pediatric) (principal) | CPT/HCPCS: 95811 ==

== ENCOUNTER → 2024-04-15 | Outpatient (CLI) | payer BC, MEDICARE, SELFPAY ==
[2024-04-15 12:46] LABS: Glucose 51 mg/dL (74-106)
[2024-04-16 11:07] LABS: C-Peptide 0.6 ng/mL (1.1-4.4)
== END | disposition home or self-care (01) ==
LOC: LAB 11:37
PROVIDERS: PCP Family Medicine; Referring Provider Internal Medicine Endocrinology, Diabetes & Metabolism; Visit Provider Internal Medicine Endocrinology, Diabetes & Metabolism
DX: E11.42 Type 2 diabetes mellitus with diabetic polyneuropathy (principal); Z79.4 Long term (current) use of insulin
CPT/HCPCS: 36415; 82947; 84681

== ENCOUNTER → 2024-05-06 | Outpatient (CLI) | payer MEDICARE, BC, SELFPAY | END | disposition home or self-care (01) | LOC: SL 09:48 | PROVIDERS: PCP Family Medicine; Visit Provider Nurse Practitioner Acute Care | DX: Z00.00 Encounter for general adult medical examination without abnormal findings (principal) ==

== ENCOUNTER → 2025-02-04 | Outpatient (CLI) | payer BC, MEDICARE, SELFPAY | END | disposition home or self-care (01) | LOC: CVS 06:07 | PROVIDERS: PCP Family Medicine; Referring Provider Student in an Organized Health Care Education/Training Program; Visit Provider Student in an Organized Health Care Education/Training Program | DX: I25.10 Atherosclerotic heart disease of native coronary artery without angina pectoris (principal) | CPT/HCPCS: 78452; 93017; A9500; A4216; J2785 ==

== ENCOUNTER 2025-03-21 07:26 | Day surgery (SDC) | payer BC, MEDICARE, SELFPAY ==
--- NOTE | 2025-03-10 10:19 | RAD_ITS ---
PROCEDURE: CHEST PA AND LATERAL 03/10/2025 REASON FOR EXAM: ABNORMAL STRESS TEST, CAD, PRE-CATH TECHNIQUE: Procedure Code: RADCXR Modality: DX Procedure: CHEST PA AND LATERAL COMPARISON: Chest x-ray dated 01/22/2021 FINDINGS: Hardware: None Heart: Heart size and configuration are within normal limits. Mediastinum: Mediastinal silhouette is unremarkable. Lungs: Lungs are expanded and clear without evidence of atelectasis, consolidation, effusion, pneumothorax or pneumonic infiltrate. Bones: Mild spondylosis of the thoracic spine is noted. RAD/Chest PA and Lateral IMPRESSION: No acute cardiopulmonary process is identified radiographically. Reading Location: [id number]
[2025-03-10 10:59] LABS: Prothrombin Time (Protime)PT. 14.1 SECONDS (11.7-14.9)
[2025-03-10 11:06] LABS: Hematocrit 41.9 % (40-54); Hemoglobin 13.4 g/dL (13.0-16.5); Immature Granulocytes Count 0.080 X10^3/uL (0.0-0.0); Mean Corp Hgb Conc 32.0 g/dL (32-36); Mean Corpuscular Volume 90.1 fL (80-94); Mean Platelet Vol. 11.0 fl (6.2-12.0); NRBC Flagged by Analyzer 0 % (0-5); Platelet Count 265 K/mm3 (150-450); RBC Distribution Width CV 13.3 % (11.6-14.6); RBC Distribution Width SD 43.4 fl (35.1-43.9); Red Blood Count 4.65 M/mm3 (4.6-6.2); White Blood Count 7.7 K/mm3 (4.4-11.0)
[2025-03-10 11:25] LABS: Bilirubin, Direct 0.25 mg/dL (0.00-0.30); Cholesterol 107 mg/dL (<=200); Low Density Lipoprotein Calc. 51 mg/dL; Triglycerides 105 mg/dL; Very Low Density Lipoprotein 21 mg/dL (5-40); cholesterol:hdl ratio screen 2.97
[2025-03-10 11:29] LABS: Anion Gap 9 (5-15); BUN 18 mg/dL (4-19); BUN/Creat Ratio 15.8 RATIO (10-20); Calcium,Total 9.5 mg/dL (7.6-11.0); Carbon Dioxide 25.3 mmol/L (21.0-32.0); Chloride 105 mmol/L (98-108); Glucose 203 mg/dL (70-99); Potassium 5.2 mmol/L (3.3-5.1)
--- OUTSIDE RECORDS SUMMARY | 2025-03-14 04:47 | XMS RPT_ITS ---
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 Mental illness Mother Coronary artery disease Father Heart disease Father Diabetes Father Hearing loss Father Diabetes Maternal Grandmother Hearing loss Maternal Grandmother Heart disease Maternal Grandmother Diabetes Maternal Grandfather Hearing loss Maternal Grandfather Heart disease Maternal Grandfather Stroke Maternal Grandfather Cancer Paternal Grandmother Comments: Lung, colon Dementia Paternal Grandmother Cancer Paternal Grandfather Family Status - Relation Status Age at Mother Father Alive Maternal Grandmother Maternal Grandfather Alive Paternal Grandmother Paternal Grandfather Paternal Grandfather Alive Level of Service:27664 CA OFFICE/OUTPATIENT ESTABLISHED MOD MDM 30 MIN Reason for Visit and Comments: Weight Loss [024743] - D/E 04/30 PROGRESS NOTE Observed: 02/03/2025 2:00 PM Status: COMPLETED Source: [facility] SURGICAL WEIGHT LOSS MANAGEMENT PROGRAM PHYSICIAN SUPERVISED DIET AND EXERCISE SURGICAL PREPARATORY REGIMEN PROGRESS NOTE INITIAL EVALUATION Patient: Ta Brantley Service Date: @TODAY@ Date of : 1975 Navigation Plan: Patient History/Assessment Summary: The patient is a pleasant 49 y.o. year old male, who stands Height: 6' 3.75 (192.4 cm) tall with a weight of Weight: (!) 310 lb 12.8 oz (141 kg) pounds, resulting in a BMI of Body mass index is 38.08 kg/m?. kg/m2. He has been overweight for years, has tried and failed multiple previous diet attempts, and is now in the process of undergoing evaluation for surgical treatment of their obesity and related comorbidities, including DM, GERD, High Cholesterol, HTN, Joint Pain, and Obesity. He is here today to initiate monthly physician supervised diet and exercise as part of their surgical preparatory regimen. History: Medical History[1] Surgical History[2] Family History[3] Social History Tobacco Use Smoking status: Former Current packs/day: 0.00 Types: Cigarettes Start date: 09/26/1996 Quit date: 09/26/2006 Years since quittin.3 Passive exposure: Never Smokeless tobacco: Former Types: Snuff Quit date: 09/26/2013 Substance Use Topics Alcohol use: Yes Alcohol/week: 1.0 standard drink of alcohol Types: 1 Cans of beer per week Comment: socially Initial Diet & Exercise/SPR Visit Weight Metrics: Date of Initial Diet & Exercise Visit: Consult Date: 02/03/25 Initial Weight: Initial Weight: 310 lb 12.8 oz (141 kg) Initial BMI: Initial BMI: 38.08 [place] Body Weight: [place] Body Weight: 179 lb (81.2 kg) Excess Body Weight: EBW: 131 lb General: This patient is alert. Physical Examination: BP (!) 181/98 Comment: DID NOT TAKE BP MET YET Pulse 81 Resp 16 Ht 6' 3.75 (1.924 m) Wt (!) 310 lb 12.8 oz (141 kg) BMI 38.08 kg/m? General: This patient is obese and is in no apparent distress. Cardiac: Regular rate and rhythm without evidence of murmur Respiratory: Clear to auscultation bilaterally; No evidence of respiratory distress Head and Neck: Obese, normocephalic and atraumatic/soft and supple; no lymphadenopathy or obvious bruits; no thyromegaly. Musculoskeletal: No cyanosis, clubbing or edema/ No calf tenderness/No restrictions of movement, is ambulatory without assistance, no focal deficits noted. Current Diet This patient?s current diet is: Well balanced, low carb due to DM Breakfast: skips, or eggs, veggies, or cereal/oatmeal Lunch: sandwich, soup, leftovers Dinner: 5-6 pm, salad bar, grilled chicken, potato, vegetable, noodles Snack: just about anything fruit, cookies, chips Drinks: water, coffee- black, Diet Squirt one-three cans daily Reviewed PAST DIET HISTORY FORM and CURRENT DIET HISTORY FORM with patient (located in [facility]) His diet contains inadequate amounts of protein, adequate amounts of healthy fats, adequate amounts of green, leafy vegetables, and adequate amounts of fruits. His comfort foods include: Diet soda Current Activity This patient currently does some exercise- biking. Unable to do certain exercises due to pain. Current Eating Behaviors This patients demonstrates the following behaviors as they relate to his eating:eats at night He eats approximately 3-4 times per day. His last meal/snack was at 8-9 pm Plan: 1). DM II- Insulin-Dependent with longstanding history of DM. He will have A1c as part of pre-surgical lab set. Seeking LRYGB partially for possible improvement in DM. 2). Morbid Obesity, BMI 38.08- Lengthy discussion re: eating for your metabolism by being mindful of timing of eating, high protein diet, pairing protein with complex carb at meals and snacks. Resources provided, questions addressed and answered. Patient is planning to undergo Bariatric surgery for weight reduction. 3). HTN- Blood pressure is elevated today. This was discussed with the patient. The patient states they feel well. They have no symptoms. Check blood pressure at home - they agree. Monitor for development of symptoms. Monitor BP closely. Follow with outpatient providers. Management per outpatient providers. Advised patient that He must adhere to regular monthly visits to meet the requirements of his insurance company. Additionally, He must demonstrate meal plan adoption to show readiness for the changes that will be required following surgery. Physician Diet Recommendations provided to patient. Patient to return for follow up in one month. Current Meds Patient's Medications New Prescriptions No medications on file Previous Medications AMLODIPINE (NORVASC) 5 MG TABLET Take 5 mg by mouth daily. ASPIRIN 81 MG EC TABLET Take 81 mg by mouth daily. ATORVASTATIN (LIPITOR) 40 MG TABLET Take 40 mg by mouth Nightly. BUPROPION XL (WELLBUTRIN XL) 300 MG 24 HR TABLET CARVEDILOL (COREG) 12.5 MG TABLET CLONIDINE (CATAPRES) 0.1 MG TABLET Take 1 tablet (0.1 mg) by mouth 3 times daily. CONTINUOUS BLOOD GLUC SENSOR (FREESTYLE TIM 2 SENSOR) MISC DULOXETINE (CYMBALTA) [address] CAPSULE Take 90 mg by mouth daily. FERROUS SULFATE 325 (65 FE) MG TABLET Take 325 mg by mouth. GABAPENTIN (NEURONTIN) 300 MG CAPSULE Take 300 mg by mouth Nightly. HUMALOG KWIKPEN 200 UNIT/ML SOLUTION PEN-INJECTOR PEN Inject 200 Units under the skin. To fill insulin pump HYDRALAZINE (APRESOLINE) 25 MG TABLET Take 1 tablet (25 mg) by mouth 3 times daily for 8 days. HYDROXYZINE HCL (ATARAX) 25 MG TABLET Take 25 mg by mouth 3 times daily as needed. LISINOPRIL 20 MG TABLET Take 20 mg by mouth 2 times daily. LORAZEPAM (ATIVAN) 0.5 MG TABLET Take 0.5 mg by mouth every 6 hours as needed for anxiety. MAGNESIUM GLUCONATE (MAGONATE) 500 MG TABLET Take by mouth. METFORMIN (GLUCOPHAGE) 1000 MG TABLET Take 1,000 mg by mouth 2 times daily. METOCLOPRAMIDE (REGLAN) 5 MG TABLET TAKE 1 TABLET BY MOUTH BEFORE MEALS AND AT BEDTIME. MUPIROCIN (BACTROBAN) 2 % OINTMENT Apply topically daily. Apply daily on right third finger PRAMIPEXOLE (MIRAPEX) 0.5 MG TABLET Take 0.5 mg by mouth Nightly. ROPINIROLE (REQUIP) 1 MG TABLET Take 1 mg by mouth in the morning and 1 mg in the evening. TRAZODONE (DESYREL) 100 MG TABLET Take 100 mg by mouth Nightly as needed for sleep. TRIAMTERENE-HYDROCHLOROTHIAZIDE (MAXZIDE-25) 37.5-25 MG TABLET Take 1 tablet by mouth daily. Modified Medications No medications on file Discontinued Medications No medications on file [1] Past Medical History: Diagnosis Date ADHD Anxiety Arthritis Autonomic neuropathy Back pain CAD (coronary artery disease) Daytime sleepiness Depression Diabetes mellitus (HCC) Insulin dependent Difficulty sleeping Difficulty walking Disorder of jaw difficulty opening and closing Fatigue Heart murmur Hx of right BKA ([facility]) Hypertension Joint pain hip and knee Memory difficulties Morbid obesity, unspecified obesity type ([facility]) 12/29/2024 Muscle weakness Neuropathy FAITH (obstructive sleep apnea) Restless leg syndrome Snoring SOB (shortness of breath) Uses hearing aid [2] Past Surgical History: Procedure Laterality Date CHOLECYSTECTOMY 2023 CORONARY ANGIOPLASTY WITH STENT PLACEMENT Bilateral 2020 LEG AMPUTATION THROUGH LOWER TIBIA AND FIBULA Right 07/18/2021 Dr. Engle OTHER SURGICAL HISTORY Left 09/26/2020 left leg debridement to muscle TOE AMPUTATION Left 06/27/2023 4th toe- Dr. Keys [3] Family History Problem Relation Name Age of Onset Heart attack Mother Stroke Mother Diabetes Mother Dementia Mother Obesity Mother Drug abuse Mother Maria Guadalupe Depression Mother Maria Guadalupe Diabetes Mother Maria Guadalupe Hypertension Mother Maria Guadalupe Stroke Mother Maria Guadalupe Dementia Mother Maria Guadalupe Heart attack Mother Maria Guadalupe Arthritis Mother Maria Guadalupe Hearing loss Mother Maria Guadalupe Heart disease Mother Maria Guadalupe Mental illness Mother Maria Guadalupe Suicide Attempts Mother Maria Guadalupe Coronary artery disease Father Heart failure Father Diabetes Father Heart failure Father Jose E Diabetes Father Jose E Coronary artery disease Father Jose E Arthritis Father Jose E Hearing loss Father Jose E Heart disease Father Jose E Diabetes Maternal Grandmother Baker Hearing loss Maternal Grandmother Baker Heart disease Maternal Grandmother Baker Diabetes Maternal Grandfather Reji Colon cancer Maternal Grandfather Reji Hearing loss Maternal Grandfather Reji Heart disease Maternal Grandfather Reji Cancer Paternal Grandmother Cancer Paternal Grandmother Aurora Diabetes Paternal Grandmother Aurora Hearing loss Paternal Grandmother Trinity Heart disease Paternal Grandmother Trinity Cancer Paternal Grandfather [phone] Observed: 01/31/2025 2:11 PM Status: COMPLETED Source: [facility] Patient: Ta Brantley Procedure Summary Date: 01/31/25 Room / Location: [place] [address] / [facility] Gastroenterology Anesthesia Start: 1358 Anesthesia Stop: 1408 Procedure: ESOPHAGOGASTRODUODENOSCOPY, WITH BIOPSY Diagnosis: Functional dyspepsia Providers: Niko Layne MD Responsible Provider: Ta York MD Anesthesia Type: TIVA ASA Status: 3 Anesthesia Type: TIVA Vitals Value Taken Time BP 146/107 01/31/25 14:12 Temp 36.1 ?C (97 ?F) 01/31/25 14:12 Pulse 85 01/31/25 14:12 Resp 18 01/31/25 14:12 SpO2 100 % 01/31/25 14:12 Anesthesia Post Evaluation Patient location during evaluation: PACU Patient participation: complete - patient participated Level of consciousness: alert Pain management: satisfactory to patient Airway patency: patent Dental Injury: no Cardiovascular status: acceptable, blood pressure returned to baseline and hemodynamically stable Respiratory status: acceptable and spontaneous ventilation Hydration status: euvolemic Nausea/Vomiting: controlled No notable events documented. Patient can be discharged once all PACU criteria has been met. ANESTHESIA NOTE Observed: 01/31/2025 2:11 PM Status: COMPLETED Source: [facility] Patient: Ta Brantley Procedure Summary Date: 01/31/25 Room / Location: [place] [address] / [facility] Gastroenterology Anesthesia Start: 1358 Anesthesia Stop: 1408 Procedure: ESOPHAGOGASTRODUODENOSCOPY, WITH BIOPSY Diagnosis: Functional dyspepsia Providers: Niko Layne MD Responsible Provider: Ta York MD Anesthesia Type: TIVA ASA Status: 3 Anesthesia Type: TIVA Vitals Value Taken Time BP 146/107 01/31/25 14:12 Temp 36.1 ?C (97 ?F) 01/31/25 14:12 Pulse 85 01/31/25 14:12 Resp 18 01/31/25 14:12 SpO2 100 % 01/31/25 14:12 Anesthesia Post Evaluation Patient participation: complete - patient participated Level of consciousness: alert Pain management: satisfactory to patient Multimodal analgesia pain management approach Airway patency: patent Two or more strategies used to mitigate risk of obstructive sleep apnea Respiratory status: acceptable Cardiovascular status: acceptable Hydration status: acceptable No notable events documented. MIPS #430 PONV Patient did not receive an inhalational anesthetic (XX430) MIPS # 424 Perioperative Temperature Management Anesthesia time was less than 60 minutes (4256F) MIPS #477 Multimodal Pain Management Not emergent case Patient was not administered multimodal pain management (G2149) Patient reports no pain in PACU (G2149) MIPS #404 Anesthesiology Smoking Abstinence The patient is not a current smoker (e.g. cigarette, cigar, pipe, e-cigarette/vaping/marijuana) If no stop here (XX404) I completed my handoff to the receiving clinician during which we: 1. Identified the patient 2. Identified the responsible provider 3. Reviewed the pertinent medical history 4. Discussed the surgical course 5. Reviewed intra-op anesthesia management and issues during anesthesia 6. Set expectations for post-procedure period 7. Allowed opportunity for questions and acknowledgement of understanding. TISSUE EXAM Collected: 2:04 PM Status: F Source: [facility] TYPE CODE TESTS RESULT OUT OF RANGE REFERENCE UNITS PATHOLOGY 1499 LAB AP CASE REPORT Result Comment: Surgical Pat hology Case: [id number] Authorizing Provider: Niko Layne MD Collected: 01/31/2025 1404 Ordering Location: [facility] Endoscopy Received: 01/31/2025 1508 Pathologist: Charlene Batres MD Specimen: Gastric Antrum, biopsy-r/o h-pylori PATHOLOGY 34 LAB AP REPORT FINAL DIAGNOSIS NARRATIVE Result Comment: STOMACH, ANT RUM, BIOPSY - MILD CHRONIC INACTIVE GASTRITIS. Comment: H&E stain is negative for H. Pylori. No significant active inflammation present. Negative for intestinal metaplasia or malignancy. at 2127 EDT PATHOLOGY 29 LAB AP CLINICAL INFORMATION Result Comment: Functional d yspepsia - K30 [ICD-10-CM] PATHOLOGY 7029406 LAB AP HISTO GROSS DESCRIPTION Received in formalin labeled antrum is a 0.6 cm kelly soft tissue fragment. Submitted in one cassette. PATHOLOGY 769 LAB AP ASR DISCLAIMER Result Comment: Disclaimer: The following statement applies to all immunohistochemistry, in situ hybridization, molecular studies, and immunofluorescence testing, if performed on this case. The use of one or more reagents in the above tests is regulated as an analyte specific reagent (ASR). These tests were developed and their performance characteristics determined by the clinical laboratories of [facility]. They have not been cleared by the US Food and Drug Administration (FDA). The FDA has determined that such clearance or approval is not necessary. All immunostains were performed on paraffin embedded tissue. Appropriate positive and negative controls (where applicable) were run in parallel with the patient's specimen; these controls showed expected staining pattern, with acceptable intensity of staining. Immunohistochemical assays have not been validated on decalcified tissues. Results should be interpreted with caution given the raised possibility of false negativity on decalcified specimens. PATHOLOGY 967505 AP CASE PATHOLOGIST INTERP LOCATION [facility], [address] [place] [address], CLIA: [id number]; Joint Commission: [id number]; CAP: [id number] PATHOLOGY EMBDOC OUTGOING CLINICAL RESULTS EMBEDDED DOCUMENT Performed By: #### [id number] #### Administrative Liaison: SONYA HODGE ([id number]) [facility] ([facility]) [address] [place] [address] HISTORY AND PHYSICAL NOTE Observed: 09/2024 1:59 PM Status: COMPLETED Source: [facility] Endoscopy History and Physic al HPI: Ta Brantley is a 49 y.o. male who presents with dyspepsia and is undergoing preoperative workup for weight reduction surgery. BMI is Body mass index is 38.34 kg/m?. PMHx: Medical History[1] PSHx: Surgical History[2] PFMHx: Family History[3] ALL: Allergies[4] MEDS: @MEDCMED@ SOCIAL Hx: Social History Socioeconomic History Marital status: Spouse name: Not on file Number of children: Not on file Years of education: Not on file Highest education level: Not on file Occupational History Not on file Tobacco Use Smoking status: Former Current packs/day: 0.00 Types: Cigarettes Start date: 09/26/1996 Quit date: 09/26/2006 Years since quittin.3 Passive exposure: Never Smokeless tobacco: Former Types: Snuff Quit date: 09/26/2013 Vaping Use Vaping status: Never Used Substance and Sexual Activity Alcohol use: Yes Alcohol/week: 1.0 standard drink of alcohol Types: 1 Cans of beer per week Comment: socially Drug use: Never Sexual activity: Not Currently Partners: Female Other Topics Concern Not on file Social History Narrative Not on file Social Drivers of Health Financial Resource Strain: Not on file Food Insecurity: Not on file Transportation Needs: Not on file Physical Activity: Not on file Stress: Not on file Social Connections: Not on file Intimate Partner Violence: Not At Risk (11/20/2022) Humiliation, Afraid, Rape, and Kick questionnaire Fear of Current or Ex-Partner: No Emotionally Abused: No Physically Abused: No Sexually Abused: No Housing Stability: Not on file Review of Systems: I personally reviewed the patient intake form with the patient. The ROS is negative except for what is listed in HPI. Physical Examination: BP 130/78 (BP Location: Left arm, Patient Position: Sitting) Pulse 79 Temp (!) 35.9 ?C (96.6 ?F) (Temporal) Resp 18 Ht 6' 4 (1.93 m) Wt (!) 315 lb (143 kg) SpO2 100% BMI 38.34 kg/m? He stands @FLOWAMB(11)@ tall with a weight of @FLOWAMB(14)@ , resulting in a BMI of Body mass index is 38.34 kg/m?.. General: The patient is awake, alert, and oriented, and is in no apparent distress. Normal affect. Head and Neck: Normocephalic and atraumatic. Supple, no thyromegaly. Cardiac: Regular rate and rhythm without evidence of murmur. No obvious carotid bruits. Respiratory: Clear to auscultation bilaterally. Good inspiratory effort. Abdomen: Soft, non tender, non distended Extremities: Ambulatory without assistance. Neurological: Intact sensation in 4 extremities, no focal deficits notes. Skin: No rashes or lesions noted. Warm and dry. Rectal: Not done. Hernia: no hernias found on exam Assessment and Plan Active Problems: There are no active Hospital Problems. Plan: 49 y.o. male who presents with dyspepsia Morbid obesity with Body mass index is 38.34 kg/m?.. EGD with biopsy Patient counseled on risks, benefits, and alternatives of treatment plan at length. Patient states an understanding and willingness to proceed with plan. [1] Past Medical History: Diagnosis Date ADHD Anxiety Arthritis Autonomic neuropathy Back pain CAD (coronary artery disease) Daytime sleepiness Depression Diabetes mellitus (HCC) Insulin dependent Difficulty sleeping Difficulty walking Disorder of jaw difficulty opening and closing Fatigue Heart murmur Hypertension Joint pain hip and knee Memory difficulties Morbid obesity, unspecified obesity type (CMS/HCC) 12/29/2024 Muscle weakness Neuropathy FAITH (obstructive sleep apnea) Restless leg syndrome Snoring SOB (shortness of breath) Uses hearing aid [2] Past Surgical History: Procedure Laterality Date CHOLECYSTECTOMY 2023 CORONARY ANGIOPLASTY WITH STENT PLACEMENT Bilateral 2020 LEG AMPUTATION THROUGH LOWER TIBIA AND FIBULA Right 07/18/2021 Dr. Engle OTHER SURGICAL HISTORY Left 09/26/2020 left leg debridement to muscle TOE AMPUTATION Left 06/27/2023 4th toe- Dr. Keys [3] Family History Problem Relation Name Age of Onset Heart attack Mother Stroke Mother Diabetes Mother Dementia Mother Obesity Mother Drug abuse Mother Maria Guadalupe Depression Mother Maria Guadalupe Diabetes Mother Maria Guadalupe Hypertension Mother Maria Guadalupe Stroke Mother Maria Guadalupe Dementia Mother Maria Guadalupe Heart attack Mother Maria Guadalupe Arthritis Mother Maria Guadalupe Hearing loss Mother Maria Guadalupe Heart disease Mother Maria Guadalupe Mental illness Mother Maria Guadalupe Suicide Attempts Mother Maria Guadalupe Coronary artery disease Father Heart failure Father Diabetes Father Heart failure Father Jose E Diabetes Father Jose E Coronary artery disease Father Jose E Arthritis Father Jose E Hearing loss Father Jose E Heart disease Father Jose E Diabetes Maternal Grandmother Baker Hearing loss Maternal Grandmother Baker Heart disease Maternal Grandmother Baker Diabetes Maternal Grandfather Reji Colon cancer Maternal Grandfather Reji Hearing loss Maternal Grandfather Reji Heart disease Maternal Grandfather Reji Cancer Paternal Grandmother Cancer Paternal Grandmother Aurora Diabetes Paternal Grandmother Aurora Hearing loss Paternal Grandmother Trinity Heart disease Paternal Grandmother Aurora Cancer Paternal Grandfather [4] Allergies Allergen Reactions Morphine Chest pain OP NOTE Observed: 01/31/2025 1:55 PM Status: COMPLETED Source: [facility] Name: Ta Brantley Procedure Date: 01/31/2025 1:55 PM Gender: Male Date of : 1975 Age: 49 Admit Type: Outpatient Note Status: Finalized Endoscopist: Niko Layne MD, [id number] Procedure: Upper GI endoscopy Indications: Heartburn Findings: Mild inflammation was found in the gastric antrum. Biopsies were taken with a cold forceps for Helicobacter pylori testing. A medium amount of food (residue) was found on the greater curvature of the stomach. Impression: - Gastritis. Biopsied. - A medium amount of food (residue) in the stomach. Recommendation: - Patient has a contact number available for emergencies. The signs and symptoms of potential delayed complications were discussed with the patient. Return to normal activities tomorrow. Written discharge instructions were provided to the patient. - Resume previous diet. - Continue present medications. - Await pathology results. Referring MD: Niko Layne, Niko Layne MD, Rory Greenfield Medicines: Monitored Anesthesia Care Procedure: Pre-Anesthesia Assessment: - Prior to the procedure, a History and Physical was performed, and patient medications and allergies were reviewed. The patient's tolerance of previous anesthesia was also reviewed. The risks and benefits of the procedure and the sedation options and risks were discussed with the patient. All questions were answered, and informed consent was obtained. Prior Anticoagulants: The patient has taken no anticoagulant or antiplatelet agents. ASA Grade Assessment: per anesthesia endoscopic documentation. After reviewing the risks and benefits, the patient was deemed in satisfactory condition to undergo the procedure. - The anesthesia plan was to use monitored anesthesia care (MAC). After obtaining informed consent, the endoscope was passed under direct vision. Throughout the procedure, the patient's blood pressure, pulse, and oxygen saturations were monitored continuously. The Endoscope was introduced through the mouth, and advanced to the second part of duodenum. The upper GI endoscopy was accomplished without difficulty. The patient tolerated the procedure well. Complications: No immediate complications. Procedure Code(s): --- Professional --- 54837, Esophagogastroduodenoscopy, flexible, transoral; with biopsy, single or multiple --- Technical --- 47821, Esophagogastroduodenoscopy, flexible, transoral; with biopsy, single or multiple Diagnosis Code(s): --- Professional --- K29.70, Gastritis, unspecified, without bleeding R12, Heartburn --- Technical --- K29.70, Gastritis, unspecified, without bleeding R12, Heartburn CPT copyright 2021 [employer]. All rights reserved. The codes documented in this report are preliminary and upon detective and intelligence analyst review may be revised to meet current compliance requirements. Attending Participation: I personally performed the entire procedure. Niko Layne MD. Niko Layne MD 01/31/2025 2:07:40 PM This report has been signed electronically. Number of Addenda: 0 Note Initiated On: 01/31/2025 1:55 PM ANESTHESIA NOTE Observed: 01/31/2025 1:47 PM Status: COMPLETED Source: [facility] Patient: Ta Brantley Procedure Information Date/Time: 01/31/25 1410 Procedure: ESOPHAGOGASTRODUODENOSCOPY, WITH BIOPSY - 20MINS Location: [place] [address] / [facility] Gastroenterology Providers: Niko Layne MD Relevant Problems Anesthesia (+) History of streptococcal infection (+) Hx of acute bacterial endocarditis (+) FAITH (obstructive sleep apnea) Cardio (+) Hypertension Endo (+) Type 2 diabetes mellitus with hyperglycemia, with long-term current use of insulin (HCC) Pulmonary (+) History of streptococcal infection (+) FAITH (obstructive sleep apnea) Other (+) Osteomyelitis (HCC) (+) Subacute osteomyelitis of right foot (HCC) Past Medical History: Past Medical History: No date: ADHD No date: Anxiety No date: Arthritis No date: Autonomic neuropathy No date: Back pain No date: CAD (coronary artery disease) No date: Daytime sleepiness No date: Depression No date: Diabetes mellitus (HCC) No date: Difficulty sleeping No date: Difficulty walking No date: Disorder of jaw Comment: difficulty opening and closing No date: Fatigue No date: Heart murmur No date: Hypertension No date: Joint pain Comment: hip and knee No date: Memory difficulties 12/29/2024: Morbid obesity, unspecified obesity type (CMS/HCC) No date: Muscle weakness No date: Neuropathy No date: FAITH (obstructive sleep apnea) No date: Restless leg syndrome No date: Snoring No date: SOB (shortness of breath) No date: Uses hearing aid Past Surgical History: Past Surgical History: 2023: CHOLECYSTECTOMY 2019: CORONARY ANGIOPLASTY WITH STENT PLACEMENT; Bilateral 07/18/2021: LEG AMPUTATION THROUGH LOWER TIBIA AND FIBULA; Right Comment: Dr. Engle 09/26/2020: OTHER SURGICAL HISTORY; Left Comment: left leg debridement to muscle 06/27/2023: TOE AMPUTATION; Left Comment: 4th toe- Dr. Keys Social History: TOBACCO: reports that he quit smoking about 18 years ago. His smoking use included cigarettes. He started smoking about 28 years ago. He has never been exposed to tobacco smoke. He quit smokeless tobacco use about 11 years ago. His smokeless tobacco use included snuff. ETOH: reports current alcohol use of about 1.0 standard drink of alcohol per week. Social History Substance and Sexual Activity Drug Use Never Family History: Family History[1] Screening: unknown Clinical information reviewed: Physical Exam Airway Mallampati: III Neck ROM: full Mouth Open: normal Cardiovascular Dental dentition normal Pulmonary Abdominal Anesthesia Plan Any family history or previous problems with anesthesia no We discussed risks, benefits, alternatives and likelihood of success with the Patient. ASA 3 TIVA Any family history or previous problems with anesthesia no The patient is not a current smoker. patient is NPO appropriate FAITH Screening Labs: Lab Results Component Value Date WBC 6.7 07/05/2024 HGB 13.2 07/05/2024 HCT 40.6 07/05/2024 MCV 83.9 07/05/2024 PLT 199 07/05/2024 Lab Results Component Value Date NA 137 07/05/2024 K 4.6 07/05/2024 CL 103 07/05/2024 CO2 25 07/05/2024 BUN 18 07/05/2024 CREATININE 1.12 07/05/2024 GLUCOSE 202 (H) 07/05/2024 CALCIUM 9.1 07/05/2024 PROT 6.8 07/05/2024 ALKPHOS 68 07/05/2024 AST 25 07/05/2024 ALT 21 07/05/2024 EGFR 81.5 07/05/2024 No echocardiogram results found for the past 14 days 05/14/24 ECG 12-LEAD 05/14/2024 11:29 PM (Final) Impression Sinus rhythm Inferior infarct, old Electronically Signed On 05-14-2024 23:29:14 EST by Niko Spicer Signed by: Niko Spicer, DO on 05/14/2024 11:29 PM Equipment Requests: Additional Equipment Requests [1] Family History Problem Relation Name Age of Onset Heart attack Mother Stroke Mother Diabetes Mother Dementia Mother Obesity Mother Drug abuse Mother Maria Guadalupe Depression Mother Maria Guadalupe Diabetes Mother Maria Guadalupe Hypertension Mother Maria Guadalupe Stroke Mother Maria Guadalupe Dementia Mother Maria Guadalupe Heart attack Mother Maria Guadalupe Arthritis Mother Maria Guadalupe Hearing loss Mother Maria Guadalupe Heart disease Mother Maria Guadalupe Mental illness Mother Maria Guadalupe Suicide Attempts Mother Maria Guadalupe Coronary artery disease Father Heart failure Father Diabetes Father Heart failure Father Jose E Diabetes Father Jose E Coronary artery disease Father Jose E Arthritis Father Jose E Hearing loss Father Jose E Heart disease Father Jose E Diabetes Maternal Grandmother Baker Hearing loss Maternal Grandmother Baker Heart disease Maternal Grandmother Baker Diabetes Maternal Grandfather Reji Colon cancer Maternal Grandfather Reji Hearing loss Maternal Grandfather Reji Heart disease Maternal Grandfather Reji Cancer Paternal Grandmother Cancer Paternal Grandmother Trinity Diabetes Paternal Grandmother Aurora Hearing loss Paternal Grandmother Trinity Heart disease Paternal Grandmother Trinity Cancer Paternal Grandfather 37 Observed: 01/26/2025 10:00 AM Status: COMPLETED Source: [facility] YOUR APPOINTMENT TODAY WAS W ITH THE [facility], COPD CLINIC, PULMONARY AND SLEEP MEDICINE OFFICE. PLEASE CALL OUR OFFICE AT [phone] for our [place] office location or [phone] for our [place] location, IF YOU HAVE NOT RECEIVED YOUR TEST RESULTS 7 DAYS AFTER TESTING IS COMPLETED. PLEASE REMEMBER TO REQUEST REFILLS AT YOUR OFFICE VISITS. PHONE/FAX REQUESTS REQUIRE 48-72 HOURS FOR RESPONSE. A FRIENDLY REMINDER COPAYS ARE DUE AT TIME OF SERVICE. THANK YOU. Our Patients Are Important! We want to improve and you can help. After your visit we want you to feel: Listened to, Respected and have your health care explained. You may receive a survey asking you about your visit. Please complete the survey. We will use your feedback to make improvements. COVID-19 VACCINATION INFORMATION: PH. [phone] [email or web address] [facility] Central Scheduling [phone] [facility] Sleep Scheduling [phone] OFFICE VISIT Observed: 01/26/2025 10:00 AM Status: COMPLETED Source: [facility] [id number] Ta Brantley M Date Provider Department Center 01/26/2025 [facility] None Family History Problem Relation Age of Onset Heart attack Mother Stroke Mother Diabetes Mother Dementia Mother Obesity Mother Drug abuse Mother Depression Mother Diabetes Mother Hypertension Mother Stroke Mother Dementia Mother Heart attack Mother Arthritis Mother Hearing loss Mother Heart disease Mother Mental illness Mother Suicide Attempts Mother Coronary artery disease Father Heart failure Father Diabetes Father Heart failure Father Diabetes Father Coronary artery disease Father Arthritis Father Hearing loss Father Heart disease Father Diabetes Maternal Grandmother Hearing loss Maternal Grandmother Heart disease Maternal Grandmother Diabetes Maternal Grandfather Colon cancer Maternal Grandfather Hearing loss Maternal Grandfather Heart disease Maternal Grandfather Cancer Paternal Grandmother Cancer Paternal Grandmother Diabetes Paternal Grandmother Hearing loss Paternal Grandmother Heart disease Paternal Grandmother Cancer Paternal Grandfather Family Status - Relation Status Age at Mother Mother Alive Father Alive Father Alive Maternal Grandmother Alive Maternal Grandfather Alive Paternal Grandmother Paternal Grandmother Alive Paternal Grandfather Paternal Grandfather Alive Level of Service:93110 CA OFFICE/OUTPATIENT ESTABLISHED MOD MDM 30 MIN Reason for Visit and Comments: New Patient [542] - REFERRAL WLS-PULM EVAL Hx Of FAITH-BIPAP-(DASCO) PROGRESS NOTE Observed: 01/26/2025 10:00 AM Status: COMPLETED Source: [facility] [address] [place] [address] Date of Service: 01/26/2025 Visit type: An Established patient Chief Complaint/Reason for Referral: New Patient (REFERRAL WLS-PULM EVAL/Hx Of FAITH-BIPAP-(DASCO)) SUBJECTIVE History of Present Illness: Ta Brantley ( 1975) is a 49 y.o. male patient, with significant PMH of PTSD, right BKA, diabetes, obesity, PVD, hyperlipidemia, Rusty artery disease, HNT, former smoker chronic pain being seen for new patient COPD Patient here to today, reports planning to have gastric sleeve with Summa at a date to be determined. Surgery clearance is needed from pulmonary. Patient has severe sleep apnea, wears CPAP 11 cm/H2O. Managed by load manager in [place]. No history of lung disease or use of inhalers. No history of bronchitis or pneumonia. Patient has no respiratory complaints. Denies recent illness, fever, chills, chest tightness, coughing, shortness of breath, chest tightness, palpitations, pedal edema. Pulmonary history- no Use of inhalers- no Sleep history- wearing cpap for 6 months. 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 History of 0.5 12 years Use of illicit drugs- no Pneumonia vaccine: no Seasonal Flu vaccine: 2024 COVID-19 vaccine: initail MMRC Dyspnea Scale: Grade Description of Breathlessness 0 I only get breathless with strenuous exercise. 1 I get short of breath when hurrying on level ground or walking up a slight hill. 2 On level ground, I walk slower than people of the same age because of breathlessness, or have to stop for breath when walking at my own pace. 3 I stop for breath after walking about 100 yards or after a few minutes on level ground. 4 I am too breathless to leave the house or I am breathless when dressing. OBJECTIVE MEDICAL HISTORY: Medical History[1] SURGICAL HISTORY: Surgical History[2] ALLERGIES: Allergies[3] MEDICATIONS: Current Medications[4] SOCIAL HISTORY: Social History Tobacco Use Smoking status: Former Current packs/day: 0.00 Types: Cigarettes Start date: 09/26/1996 Quit date: 09/26/2006 Years since quittin.3 Passive exposure: Never Smokeless tobacco: Former Types: Snuff Quit date: 09/26/2013 Substance Use Topics Alcohol use: Yes Alcohol/week: 1.0 standard drink of alcohol Types: 1 Cans of beer per week Comment: socially FAMILY HISTORY: Family History[5] REVIEW OF SYSTEMS: Review of Systems Constitutional: Negative for activity change, chills, fatigue and fever. HENT: Negative for congestion. Respiratory: Negative for cough, chest tightness, shortness of breath and wheezing. Cardiovascular: Negative for chest pain, palpitations and leg swelling. Neurological: Negative for weakness, light-headedness and headaches. Psychiatric/Behavioral: Negative for sleep disturbance. VITAL SIGNS: BP 107/69 Pulse 72 Temp (!) 35.9 ?C (96.6 ?F) (Temporal) Ht 6' 4 (1.93 m) Wt (!) 313 lb 9.6 oz (142 kg) SpO2 96% BMI 38.17 kg/m? PHYSICAL EXAM: Physical Exam Constitutional: General: He is not in acute distress. Appearance: Normal appearance. He is obese. He is not ill-appearing or toxic-appearing. HENT: Head: Normocephalic. Eyes: General: Right eye: No discharge. Left eye: No discharge. Cardiovascular: Rate and Rhythm: Normal rate and regular rhythm. Pulses: Normal pulses. Heart sounds: Normal heart sounds. No murmur heard. Pulmonary: Effort: Pulmonary effort is normal. No respiratory distress. Breath sounds: Normal breath sounds. No wheezing, rhonchi or rales. Musculoskeletal: Right lower leg: No edema. Left lower leg: No edema. Skin: General: Skin is warm and dry. Coloration: Skin is not jaundiced or pale. Neurological: Mental Status: He is alert and oriented to person, place, and time. Psychiatric: Behavior: Behavior normal. DATA REVIEWED: PFT's-- n/a CXR--05/12/2024 COMPARISON: February 22, 2019. FINDINGS: LUNGS AND PLEURAL SPACES: Unremarkable. No consolidation. No pneumothorax. HEART: Unremarkable. No cardiomegaly. MEDIASTINUM: Unremarkable. Normal mediastinal contour. BONES/JOINTS: Unremarkable. No acute fracture. IMPRESSION: Normal chest x-ray. CT Chest/CTA Chest/CT Lung Screening-- TTE--06/2021 1. Left ventricle: The cavity size is normal. Wall thickness is normal. Systolic function is normal by the biplane method of disks. The estimated ejection fraction is 60%. 2. Right ventricle: The cavity size is normal. Systolic function is normal. 3. No significant valvular abnormalities. 4. No vegetations or other evidence for infectious endocarditis. ASSESSMENT and PLAN 1. Encounter for pre-operative respiratory clearance (Primary) - Weight loss often improves and/or resolves FAITH. With that being said--it is my medical opinion that proceeding with surgery in order to achieve weight loss is more beneficial long-term than the short-term risks of untreated FAITH. - Patient agrees and wishes to proceed with surgery. - discussed avoidance of postoperative respiratory complications, including respiratory infection, respiratory failure, pneumonia - Encourage early mobilization, and use of incentive spirometry after surgery 2. FAITH on CPAP -Initial stop bang 11/02 Sleep study 04/02/2024 showed severe obstructive sleep apnea with significant oxyhemoglobin desaturations during the night - Overnight titration, present setting achieved with PAP 11 cm/H2O - Nasim is going to send us a compliance report. - patient expresses wearing PAP has made a significant difference in his life. Could not sleep without it - Has an troy for his machine on his phone, shows 100% usage, wearing greater than 6 hours a night. Was unable to find where it shows AHI, will await compliance report - CPAP therapy is beneficial and will continue 3. Hypoxia - initial home sleep study showed oxyhemoglobin desaturations < or =88% for 104 minutes. - titration study with PAP therapy showed mild =<88% 7.2 minutes 4. Class 2 severe obesity due to excess calories with serious comorbidity and body mass index (BMI) of 37.0 to 37.9 in adult - proceeding with surgery in order to achieve weight loss is more beneficial long-term - feel patient will achieve a better quality of life from weight loss - post surgery continue healthy lifestyle increasing activity and healthy diet - Ambulatory referral to Pulmonology FOLLOW UP: Follow up if symptoms worsen or fail to improve. Portions of the information within this encounter were entered using an electronic dictation system. Best attempts were made to proofread the information prior to note completion. Despite the review of the information, some errors may remain. If there are questions related to the information contained within the note please contact the signing provider directly. Electronically signed by: Sue Gutierrez NP Pulmonary & Sleep Medicine [1] Past Medical History: Diagnosis Date ADHD Anxiety Arthritis Autonomic neuropathy Back pain CAD (coronary artery disease) Daytime sleepiness Depression Diabetes mellitus (HCC) Difficulty sleeping Difficulty walking Disorder of jaw difficulty opening and closing Fatigue Heart murmur Hypertension Joint pain hip and knee Memory difficulties Morbid obesity, unspecified obesity type (CMS/HCC) 12/29/2024 Muscle weakness Neuropathy FAITH (obstructive sleep apnea) Restless leg syndrome Snoring SOB (shortness of breath) Uses hearing aid [2] Past Surgical History: Procedure Laterality Date CHOLECYSTECTOMY 2023 CORONARY ANGIOPLASTY WITH STENT PLACEMENT Bilateral 2020 LEG AMPUTATION THROUGH LOWER TIBIA AND FIBULA Right 07/18/2021 Dr. Engle OTHER SURGICAL HISTORY Left 09/26/2020 left leg debridement to muscle TOE AMPUTATION Left 06/27/2023 4th toe- Dr. Keys [3] Allergies Allergen Reactions Morphine Chest pain [4] Current Outpatient Medications: amLODIPine (Norvasc) 5 MG tablet, Take 5 mg by mouth daily., Disp: , Rfl: aspirin 81 MG EC tablet, Take 81 mg by mouth daily., Disp: , Rfl: atorvastatin (Lipitor) 40 MG tablet, Take 40 mg by mouth Nightly., Disp: , Rfl: buPROPion XL (Wellbutrin XL) 300 MG 24 hr tablet, , Disp: , Rfl: carvedilol (Coreg) 12.5 MG tablet, , Disp: , Rfl: cloNIDine (Catapres) 0.1 MG tablet, Take 1 tablet (0.1 mg) by mouth 3 times daily., Disp: 30 tablet, Rfl: 0 Continuous Blood Gluc Sensor (FreeStyle Tim 2 Sensor) [facility], , Disp: , Rfl: DULoxetine (Cymbalta) [address] capsule, Take 90 mg by mouth daily., Disp: , Rfl: ferrous sulfate 325 (65 Fe) MG tablet, Take 325 mg by mouth., Disp: , Rfl: gabapentin (Neurontin) 300 MG capsule, Take 300 mg by mouth Nightly., Disp: , Rfl: HumaLOG KWIKPEN 200 UNIT/ML solution pen-injector pen, Inject 200 Units under the skin. To fill insulin pump, Disp: , Rfl: HYDROcodone-acetaminophen ([place]igonier) 5-325 MG tablet, Take 1 tablet by mouth every 6 hours as needed for severe pain (7-10) for up to 3 days., Disp: 12 tablet, Rfl: 0 lisinopril 20 MG tablet, Take 20 mg by mouth 2 times daily., Disp: , Rfl: LORazepam (Ativan) 0.5 MG tablet, Take 0.5 mg by mouth every 6 hours as needed for anxiety., Disp: , Rfl: magnesium gluconate (Magonate) 500 MG tablet, Take by mouth., Disp: , Rfl: metFORMIN (Glucophage) 1000 MG tablet, Take 1,000 mg by mouth 2 times daily., Disp: , Rfl: mupirocin (Bactroban) 2 % ointment, Apply topically daily. Apply daily on right third finger, Disp: 22 g, Rfl: 1 pramipexole (Mirapex) 0.5 MG tablet, Take 0.5 mg by mouth Nightly., Disp: , Rfl: traZODone (Desyrel) 100 MG tablet, Take 100 mg by mouth Nightly as needed for sleep., Disp: , Rfl: triamterene-hydrochlorothiazide (Maxzide-25) 37.5-25 MG tablet, Take 1 tablet by mouth daily., Disp: , Rfl: hydrALAZINE (Apresoline) 25 MG tablet, Take 1 tablet (25 mg) by mouth 3 times daily for 8 days. (Patient not taking: Reported on 01/26/2025), Disp: 24 tablet, Rfl: 0 hydrOXYzine HCl (Atarax) 25 MG tablet, Take 25 mg by mouth 3 times daily as needed. (Patient not taking: Reported on 01/26/2025), Disp: , Rfl: metoclopramide (Reglan) 5 MG tablet, TAKE 1 TABLET BY MOUTH BEFORE MEALS AND AT BEDTIME. (Patient not taking: Reported on 01/26/2025), Disp: , Rfl: rOPINIRole (Requip) 1 MG tablet, Take 1 mg by mouth in the morning and 1 mg in the evening. (Patient not taking: Reported on 01/26/2025), Disp: , Rfl: [5] Family History Problem Relation Name Age of Onset Heart attack Mother Stroke Mother Diabetes Mother Dementia Mother Obesity Mother Drug abuse Mother Maria Guadalupe Depression Mother Maria Guadalupe Diabetes Mother Maria Guadalupe Hypertension Mother Maria Guadalupe Stroke Mother Maria Guadalupe Dementia Mother Maria Guadalupe Heart attack Mother Maria Guadalupe Arthritis Mother Maria Guadalupe Hearing loss Mother Maria Guadalupe Heart disease Mother Maria Guadalupe Mental illness Mother Maria Guadalupe Suicide Attempts Mother Maria Guadalupe Coronary artery disease Father Heart failure Father Diabetes Father Heart failure Father Jose E Diabetes Father Jose E Coronary artery disease Father Jose E Arthritis Father Jose E Hearing loss Father Jose E Heart disease Father Jose E Diabetes Maternal Grandmother Baker Hearing loss Maternal Grandmother Baker Heart disease Maternal Grandmother Baker Diabetes Maternal Grandfather Reji Colon cancer Maternal Grandfather Reji Hearing loss Maternal Grandfather Reji Heart disease Maternal Grandfather Reji Cancer Paternal Grandmother Cancer Paternal Grandmother Trinity Diabetes Paternal Grandmother Trinity Hearing loss Paternal Grandmother Trinity Heart disease Paternal Grandmother Trinity Cancer Paternal Grandfather BAS METAB 2000 PNL SERPL Collected: 9:17 AM Status: F Source: [facility] Order Comment: Specimen Type : BLOOD SPECIMEN Ordering Facility: [address] Address: [address] [place] [address], [place] [address] TYPE CODE TESTS RESULT OUT OF RANGE REFERENCE UNITS LAB 2345-7(LOINC) Glucose SerPl-mCnc 120 High 74-99 mg/dL Result Comment: The [place] [employer] Association (ADA) provides guidance for cutoff values for fasting glucose and random glucose. The ADA defines fasting as no caloric intake for at least 8 hours. Fasting plasma glucose results between 100 to 125 mg/dL indicate increased risk for diabetes (prediabetes). Fasting plasma glucose results greater than or equal to 126 mg/dL meet the criteria for diagnosis of diabetes. In the absence of unequivocal hyperglycemia, results should be confirmed by repeat testing. In a patient with classic symptoms of hyperglycemia or hyperglycemic crisis, random plasma glucose results greater than or equal to 200 mg/dL meet the criteria for diagnosis of diabetes. Reference: Standards of Medical Care in Diabetes 2016, [place] [employer] Association. Diabetes Care. 2016.39(Suppl 1). LAB 3094-0(LOINC) BUN SerPl-mCnc 33 High 9-24 mg/dL LAB 2160-0(LOINC) Creat SerPl-mCnc 1.47 High 0.73-1.22 mg/dL LAB 2951-2(LOINC) Sodium SerPl-sCnc 142 136-144 mmol/L LAB 2823-3(LOINC) Potassium SerPl-sCnc 5.1 3.7-5.1 mmol/L LAB 2075-0(LOINC) Chloride SerPl-sCnc 108 High 98-107 mmol/L LAB 2028-9(LOINC) CO2 SerPl-sCnc 23 22-30 mmol/L LAB 1863-0(LOINC) Anion Gap4 SerPl-sCnc 11 8-15 mmol/L LAB 11649-6(LOINC) Calcium SerPl-mCnc 8.8 8.5-10.2 mg/dL LAB 78317-6(LOINC) eGFRcr SerPlBld CKD-EPI 2020 59 Low >=60 mL/min/1. 73m??? Result Comment: Estimated Gl omerular Filtration Rate (eGFR) is calculated using the 2020 CKD-EPI creatinine equation. This equation utilizes serum creatinine, sex, and age as parameters. The creatinine assay has traceable calibration to isotope dilution-mass spectrometry. Refer to KDIGO guidelines for clinical interpretation. In patients with unstable renal function, e.g. those with acute kidney injury, the eGFR may not accurately reflect actual GFR. Performed By: [facility] CLIA [id number] [address] PROT/CREAT UR Collected: 9:17 AM Status: F Source: [facility] Order Comment: Specimen Type : URINE SPECIMEN Ordering Facility: [address] Address: [address] [place] [address], [place] [address] TYPE CODE TESTS RESULT OUT OF RANGE REFERENCE UNITS LAB 2888-6(LOINC) Prot Ur-mCnc 18 0-20 mg/dL LAB 2161-8(LOINC) Creat Ur-mCnc 169.3 46.8-314.5 mg/dL LAB 2890-2(LOINC) Prot/Creat Ur 0.11 <0.15 mg/mg Result Comment: Adult Protei lalo Categories: <0.15 mg/mg is considered normal to mildly increased 0.15 - 0.50 mg/mg is considered moderately increased >0.50 mg/mg is considered severely increased KDIGO. (2013). KDIGO 2012 Clinical Practice Guideline for the Evaluation and Management of Chronic Kidney Disease. Official Journal of the International Society of Nephrology, 3(1), 1-150. Performed By: [facility] CLIA [id number] [address] ED PROVIDER NOTE Observed: 01/10/2025 6:00 PM Status: COMPLETED Source: [facility] Emergency Department Encount er [facility] ED Patient: Ta Brantley : 1975 Date of Evaluation: 01/10/2025 ED Provider: Jose Ashley MD I saw the patient as the Clinician in Triage and performed a brief history and physical exam, established acuity, and ordered appropriate tests to develop basic plan of care. Patient will be seen by TROY, resident and/or my physician partner who will evaluate the patient. I wore appropriate PPE for the entirety of this encounter. Brief HPI: In brief, Ta Brantley is a 49 y.o. that presents with chief complaint of after a fall complaining of pain in the coccyx as well as in the mid thoracic midline, is a history of compression fracture in the thoracic spine in the past. Focused Physical exam: Tenderness in the midline in the thoracic spine as well as in the coccyx area Plan/MDM: X-rays Please see subsequent provider note for further details and disposition (Comment: Please note this report has been produced using speech recognition software and may contain errors related to that system including errors in grammar, punctuation, and spelling as well as words and phrases that may be inappropriate. If there are any questions or concerns please feel free to contact the dictating provider for clarification) Jsoe Ashley MD Acute Care [facility] Jose Ashley MD 01/10/25 1846 ED NURSING NOTE Observed: 01/10/2025 6:00 PM Status: COMPLETED Source: [facility] Pt ambulatory to room 6 with c/o tail bone and thoracic back pain after fall 2 nights ago and falling onto tailbone and elbow. Pt reports increased increased pain with movement in thoracic area. Pt denies any known lumbar pain but reports the feeling that he needs to have bowel movements that is atypical for him. No loss of bowel or bladder control Pt reports having fractures in same area of pain last year ED PROVIDER NOTE Observed: 01/10/2025 6:00 PM Status: COMPLETED Source: [facility] EMERGENCY DEPARTMENT ENCOUNT ER Pt Name: Ta Brantley Birthdate 1975 Date of evaluation: 01/10/2025 ED Provider: Greg Singh MD CHIEF COMPLAINT Chief Complaint Patient presents with Tailbone Pain Back Pain HISTORY OF PRESENT ILLNESS (Location/Symptom, Timing/Onset, Context/Setting, Quality, Duration, Modifying Factors, Severity) Note limiting factors. I wore appropriate PPE for the entirety of this encounter. HPI Ta Brantley is a 49 y.o. male who presents to the emergency department with chief complaint of tailbone pain after a mechanical fall. He states that he has chronic thoracic back pain secondary to a back fracture in the past. Nursing Notes were reviewed. Limitations to history: None Outside historians: None REVIEW OF SYSTEMS Review of Systems Pertinent positives and negatives as per HPI. PAST MEDICAL HISTORY Medical History[1] SURGICAL HISTORY Surgical History[2] CURRENT MEDICATIONS Discharge Medication List as of 01/10/2025 7:53 PM CONTINUE these medications which have NOT CHANGED Details amLODIPine (Norvasc) 5 MG tablet Take 5 mg by mouth daily., Starting Fri03/25/2022, Historical Med aspirin 81 MG EC tablet Take 81 mg by mouth daily., Historical Med atorvastatin (Lipitor) 40 MG tablet Take 40 mg by mouth Nightly., Starting Fri05/17/2022, Historical Med buPROPion XL (Wellbutrin XL) 300 MG 24 hr tablet Starting Fri05/26/2022, Historical Med carvedilol (Coreg) 12.5 MG tablet Historical Med cloNIDine (Catapres) 0.1 MG tablet Take 1 tablet (0.1 mg) by mouth 3 times daily., Starting Fri07/06/2024, Normal Continuous Blood Gluc Sensor (FreeStyle Tim 2 Sensor) misc Starting Fri06/13/2022, Historical Med DULoxetine (Cymbalta) [address] capsule Take 90 mg by mouth daily., Historical Med ferrous sulfate 325 (65 Fe) MG tablet Take 325 mg by mouth., Starting Fri2022, Historical Med gabapentin (Neurontin) 300 MG capsule Take 300 mg by mouth Nightly., Starting Fri12/15/2024, Historical Med HumaLOG KWIKPEN 200 UNIT/ML solution pen-injector pen Inject 200 Units under the skin. To fill insulin pump, Starting Fri09/27/2024, Historical Med hydrALAZINE (Apresoline) 25 MG tablet Take 1 tablet (25 mg) by mouth 3 times daily for 8 days., Starting Fri11/21/2022, Until Fri12/30/2024, Normal hydrOXYzine HCl (Atarax) 25 MG tablet Take 25 mg by mouth 3 times daily as needed., Starting Fri07/12/2022, Historical Med lisinopril 20 MG tablet Take 20 mg by mouth 2 times daily., Historical Med LORazepam (Ativan) 0.5 MG tablet Take 0.5 mg by mouth every 6 hours as needed for anxiety., Historical Med magnesium gluconate (Magonate) 500 MG tablet Take by mouth., Starting 04/23/2021, Historical Med metFORMIN (Glucophage) 1000 MG tablet Take 1,000 mg by mouth 2 times daily., Starting Fri05/28/2022, Historical Med metoclopramide (Reglan) 5 MG tablet TAKE 1 TABLET BY MOUTH BEFORE MEALS AND AT BEDTIME., Historical Med mupirocin (Bactroban) 2 % ointment Apply topically daily. Apply daily on right third finger, Starting Lianet 12/23/2024, Normal pramipexole (Mirapex) 0.5 MG tablet Take 0.5 mg by mouth Nightly., Starting Fri12/17/2024, Historical Med rOPINIRole (Requip) 1 MG tablet Take 1 mg by mouth in the morning and 1 mg in the evening., Starting 07/22/2021, Historical Med traZODone (Desyrel) 100 MG tablet Take 100 mg by mouth Nightly as needed for sleep., Historical Med triamterene-hydrochlorothiazide (Maxzide-25) 37.5-25 MG tablet Take 1 tablet by mouth daily., Starting Fri12/13/2024, Historical Med ALLERGIES Morphine FAMILY HISTORY Family History[3] SOCIAL HISTORY Social History[4] SCREENINGS Bryan Coma Scale Best Eye Response: Spontaneous Best Verbal Response: Oriented Best Motor Response: Follows commands [place] Coma Scale Score: 15 PHYSICAL EXAM ED Triage Vitals [01/10/25 1819] Temp Heart Rate Resp BP 36.6 ?C (97.9 ?F) 89 18 (!) 171/96 SpO2 Temp Source Heart Rate Source Patient Position 100 % Oral -- Lying BP Location FiO2 (%) Right arm -- Physical Exam Vitals and nursing note reviewed. Constitutional: General: He is not in acute distress. Appearance: He is well-developed. HENT: Head: Normocephalic and atraumatic. Musculoskeletal: Comments: TTP to the midline thoracic spine and coccyx. No overlying skin changes. Right BKA Neurological: Mental Status: He is alert. DIAGNOSTIC RESULTS Procedures/EKG: Interpretation per the Radiologist below, if available at the time of this note: XR sacrum coccyx 2+ views Final Result 1. No acute osseous abnormality. 2. Degenerative change. SACRUM AND COCCYX CLINICAL INDICATION: fall, hx of compression fx in the past, midline mid thoracic back pain TECHNIQUE: 3 views of the sacrum and coccyx. COMPARISON: None. FINDINGS: No acute fracture or dislocation. Joint spaces maintained. Soft tissues grossly unremarkable. IMPRESSION: 1. No acute osseous abnormality. Report Dictated on Electronically Signed By: Darin Martell MD Electronically Signed Date/Time: 01/10/2025 7:36 PM EDT XR thoracic spine 3 views Final Result 1. No acute osseous abnormality. 2. Degenerative change. SACRUM AND COCCYX CLINICAL INDICATION: fall, hx of compression fx in the past, midline mid thoracic back pain TECHNIQUE: 3 views of the sacrum and coccyx. COMPARISON: None. FINDINGS: No acute fracture or dislocation. Joint spaces maintained. Soft tissues grossly unremarkable. IMPRESSION: 1. No acute osseous abnormality. Report Dictated on Electronically Signed By: Darin Martell MD Electronically Signed Date/Time: 01/10/2025 7:36 PM EDT ED BEDSIDE ULTRASOUND: Performed by ED Physician - none LABS: Labs Reviewed - No data to display All other labs were within normal range or not returned as of this dictation. EMERGENCY DEPARTMENT COURSE and DIFFERENTIAL DIAGNOSIS/MDM: Vitals: Vitals: 01/10/25 1819 BP: (!) 171/96 BP Location: Right arm Patient Position: Lying Pulse: 89 Resp: 18 Temp: 36.6 ?C (97.9 ?F) TempSrc: Oral SpO2: 100% Weight: (!) 143 kg (315 lb) Height: 1.93 m (6' 4) The patient presented with a chief complaint of back pain after a fall The differential diagnosis associated with this patient's presentation includes but is not limited to: Presentation concerning for coccyx fracture Our workup consisted of ordering/reviewing: X-rays of the thoracic spine and coccyx ordered by triage provider I [facility], to include Percocet, Ativan, gabapentin Imaging negative for acute processes. I do believe that the patient still likely has an occult coccyx fracture. He was instructed to buy a soft doughnut pillow to sit on and endorses understanding. The patient will be discharged The patient is in agreement with this plan. Diagnoses as of 01/10/252108 Acute midline low back pain without sciatica Chronic midline thoracic back pain Medications Tdap (BoostRIX) vaccine 0.5 mL (has no administration in time range) oxyCODONE-acetaminophen (Percocet) 5-325 MG per tablet 1 tablet (1 tablet Oral Given 01/10/251941) REVAL: CRITICAL CARE TIME None CONSULTS: None PROCEDURES: Unless otherwise noted below, none Procedures FINAL IMPRESSION 1. Acute midline low back pain without sciatica 2. Chronic midline thoracic back pain DISPOSITION Discharge 01/10/2025 07:49:40 PM PATIENT REFERRED TO: MD Jayme Gustafson E Bahman Karri [address] [facility] [id number] Schedule an appointment as soon as possible for a visit in 3 days DISCHARGE MEDICATIONS: Discharge Medication List as of 01/10/2025 7:53 PM START taking these medications Details HYDROcodone-acetaminophen (Ligonier) 5-325 MG tablet Take 1 tablet by mouth every 6 hours as needed for severe pain (7-10) for up to 3 days., Starting 01/10/2025, Until Lianet 01/13/2025 at 2359, Normal (Comment: Please note this report has been produced using speech recognition software and may contain errors related to that system including errors in grammar, punctuation, and spelling, as well as words and phrases that may be inappropriate. If there are any questions or concerns please feel free to contact the dictating provider for clarification.) Greg Singh MD (electronically signed) Emergency Medicine Provider [1] Past Medical History: Diagnosis Date ADHD Anxiety Arthritis Autonomic neuropathy Back pain CAD (coronary artery disease) Daytime sleepiness Depression Diabetes mellitus (HCC) Difficulty sleeping Difficulty walking Disorder of jaw difficulty opening and closing Fatigue Heart murmur Hypertension Joint pain hip and knee Memory difficulties Morbid obesity, unspecified obesity type (HCC) 12/29/2024 Muscle weakness Neuropathy FAITH (obstructive sleep apnea) Restless leg syndrome Snoring SOB (shortness of breath) Uses hearing aid [2] Past Surgical History: Procedure Laterality Date CHOLECYSTECTOMY 2023 CORONARY ANGIOPLASTY WITH STENT PLACEMENT Bilateral 2020 LEG AMPUTATION THROUGH LOWER TIBIA AND FIBULA Right 07/18/2021 Dr. Engle OTHER SURGICAL HISTORY Left 09/26/2020 left leg debridement to muscle TOE AMPUTATION Left 06/27/2023 4th toe- Dr. Keys [3] Family History Problem Relation Name Age of Onset Heart attack Mother Stroke Mother Diabetes Mother Dementia Mother Obesity Mother Drug abuse Mother Maria Guadalupe Depression Mother Maria Guadalupe Diabetes Mother Maria Guadalupe Hypertension Mother Maria Guadalupe Stroke Mother Maria Guadalupe Dementia Mother Maria Guadalupe Heart attack Mother Maria Guadalupe Arthritis Mother Maria Guadalupe Hearing loss Mother Maria Guadalupe Heart disease Mother Maria Guadalupe Mental illness Mother Maria Guadalupe Suicide Attempts Mother Mariag Uadalupe Coronary artery disease Father Heart failure Father Diabetes Father Heart failure Father Jose E Diabetes Father Jose E Coronary artery disease Father Jose E Arthritis Father Jose E Hearing loss Father Jose E Heart disease Father Jose E Diabetes Maternal Grandmother Baker Hearing loss Maternal Grandmother Baker Heart disease Maternal Grandmother Baker Diabetes Maternal Grandfather Reji Colon cancer Maternal Grandfather Reji Hearing loss Maternal Grandfather Reji Heart disease Maternal Grandfather Reji Cancer Paternal Grandmother Cancer Paternal Grandmother Aurora Diabetes Paternal Grandmother Trinity Hearing loss Paternal Grandmother Trinity Heart disease Paternal Grandmother Trinity Cancer Paternal Grandfather [4] Social History Socioeconomic History Marital status: Tobacco Use Smoking status: Former Current packs/day: 0.00 Types: Cigarettes Start date: 09/26/1996 Quit date: 09/26/2006 Years since quittin.3 Passive exposure: Never Smokeless tobacco: Former Types: Snuff Quit date: 09/26/2013 Vaping Use Vaping status: Never Used Substance and Sexual Activity Alcohol use: Yes Alcohol/week: 1.0 standard drink of alcohol Types: 1 Cans of beer per week Comment: socially Drug use: Never Sexual activity: Not Currently Partners: Female Social Drivers of Health Intimate Partner Violence: Not At Risk (11/20/2022) Humiliation, Afraid, Rape, and Kick questionnaire Fear of Current or Ex-Partner: No Emotionally Abused: No Physically Abused: No Sexually Abused: No J Rafia Singh MD 01/10/25 2109 36 Observed: 01/10/2025 2:09 PM Status: COMPLETED Source: [facility] Order mailed. D/E on 02/03 Rain Observed: 01/10/2025 12:44 PM Status: COMPLETED Source: [facility] Addended by: JEROD RUSH on: 01/10/2025 12:44 PM Modules accepted: Orders 36 Observed: 01/10/2025 12:44 PM Status: COMPLETED Source: [facility] Noted, thanks. 29 Observed: 01/06/2025 3:28 PM Status: COMPLETED Source: [facility] Addended by: LINDY VALLE on: 01/06/2025 03:28 PM Modules accepted: Orders 36 Observed: 01/06/2025 3:28 PM Status: COMPLETED Source: [facility] Orders and referrals pended. EGD sent to exercise planner. Checklist scanned into media PROGRESS NOTE Observed: 01/06/2025 3:25 PM Status: COMPLETED Source: [facility] Patient is scheduled for EGD with biopsy- CPT 75796 on 01/31/25 at 210PM. Contact attempts- 3 must be made in 2 different forms. Discussed with patient via phone and sent [employer] message after confirming pt active on [employer] Important info discussed as applicable: Is patient on a GLP-1 agonist? No If yes- which one? N/A Please advise that patient hold this medication for 1 week before EGD (a couple exceptions in list-please note if they are daily only held day prior to procedure) Is patient on a blood thinner? No If yes- which one? N/A Please advise that patient discuss instructions for holding this medication with the prescribing provider Is patient on an SGLT-2 inhibitor? No If yes- which one? N/A Please advise that this medication needs held 3 days prior to EGD PROGRESS NOTE Observed: 01/06/2025 3:25 PM Status: COMPLETED Source: [facility] Auth required: No Insurance:[facility] ID number: Authorization number:[id number] Valid dates: Notes: No auth required per phone call 01/07/25 PROGRESS NOTE Observed: 01/06/2025 3:25 PM Status: COMPLETED Source: [facility] ENDOSCOPY ORDERS To be scheduled with: Dr. Layne Patient is: Pre-op/Pre-Bariatric Surgery CPT code: EGD with biopsy- CPT 93580 Diagnosis: Dyspepsia- K30 If pre-op, Diet & Exercise Requirements are, and started/scheduled on 02/03/25: 3 months Home O2: No Known Difficult Intubation: No The medication list needs reviewed at time of scheduling and again at time of reminder call. GLP-1 agonists: Semaglutide Brand names- Ozempic, Wegovy or Rybelsus needs held 1 week prior to procedure Tirzepatide Brand names- Mounjaro or Zepbound- needs held 1 week prior to procedure Dulaglutide (Trulicity)- needs held 1 week prior to procedure Liraglutide (Victoza)- daily injectable that just needs held 1 day before procedure) Exenatide Brand name Bydureon- needs held 1 week prior to procedure Brand name Byetta- daily injectable and just needs held 1 day before procedure Blood thinners: Aspirin Xarleto (rivaroxaban) Eliquis (apixaban) Plavix (clopidogrel) Warfarin/Jantoven (coumadin) Brillinta (ticagrelor) Pradaxa (dabigatran) SGLT2 inhibitors: Invokana (canagliflozin) Farxiga (dapaglifozin) Jardiance (empagliflozin) Steglatro (ertugliflozin) Brenzavvy (bexagliflozin) If endoscopy is scheduled within 17 days authorization will need to be obtained prior to scheduling PROGRESS NOTE Observed: 01/06/2025 3:25 PM Status: COMPLETED Source: [facility] 1 attempt to schedule EGD, L VM. 36 Observed: 01/06/2025 3:22 PM Status: COMPLETED Source: [facility] PLAN Encounter Diagnoses Name Primary? Type 2 diabetes mellitus with hyperglycemia, with long-term current use of insulin (HCC) Yes Hyperlipidemia, unspecified hyperlipidemia type Primary hypertension Class 2 severe obesity due to excess calories with serious comorbidity and body mass index (BMI) of 37.0 to 37.9 in adult (HCC) I have recommended proceeding with the evaluation and work-up for the primary procedure as outlined below: Dr. Layne PATIENT SUMMARY Ta Brantley 49 y.o. male with Body mass index is 37.84 kg/m?. Laparoscopic Terrie-en-Y Gastric Bypass and Laparoscopic Sleeve Gastrectomy DM[x] HTN[x] FAITH[x] GERD[] HL[] OA[] Date of Surgery: TBD RORY GREENFIELD MD INITIAL TESTING RESULTS Labwork [x] CMP, TSH, Fasting Lipid Profile, Mg, Zinc, Vit B1 (whole blood), Vit B12, 25-OH Vit D, Fe, Ferritin, Folate Tobacco [x] Serum Nicotine / Cotinine [] Negative [] Positive PLEASE ADD SERUM NICOTINE/COTININE WITH INITIAL LABS ON ALL LRYGB PROCEDURES EGD [x] Dx: [] GERD [x] Dyspepsia [] Other Pathology [x] H. pylori [] Negative [] Positive UGI [] [] not ordered US Abdomen [] [] not ordered S/p xavier FAITH eval [] [] On CPAP / Obtain settings Hematology [] [] Hypercoagulation panel Toxicology [] [] Urine drug screen [] EtOH screen Addtional [x] [x] Hgb A1c INITIAL CONSULTATIONS CLEARANCE / MANAGEMENT Psychology [x] Dietitian [x] Cardiology [x] Pulmonary [x] Dr. fang Others [] []Heme/Onc []Psychiatry []Pain mgmt PSD [x] Physician supervised diet: []None []3 mos []6 mos Preop diet [x] Preop low calorie diet: []None []1 wk [x]2 wks FINAL PRE-OP TESTING RESULTS Labwork [x] [x]Pre-op CBC [x]BMP []Serum Nicotine / Cotinine EKG [x] CXR [x] POST-OP MEDICATIONS Ulcer Ppx [] Omeprazole 20 mg PO []QD []BID Gallstone Ppx [] Ursodiol 300 mg []BID DVT Ppx [x] DVT prophylaxis per final preop visit estimated risk Estimated calculated risk: % Schedule final pre-operative office visit with surgeon, pre-operative education class, and pre-operative exercise class prior to date of surgery ATTESTATION I reviewed with the patient the details of the proposed operation. The risks benefits and options were discussed. Risks included but were not limited to bleeding, infection, damage to other surrounding organs, cardio-pulmonary complications related to anesthesia, conversion from laparoscopic to and open procedure, the need for reoperative or endoscopic therapy, the potential for prolonged mechanical ventilation, and . All questions were fully answered to the patient's satisfaction and they wish to proceed with surgical intervention. 45 minutes of the visit was spent as face to face encounter, counseling the patient and discussing the risks,benefits and options of surgery as well as the perioperative care plan. The patient was seen and examined independently and relevant data including a full chart rreview was performed by myself. 36 Observed: 01/04/2025 11:20 AM Status: COMPLETED Source: [facility] Initial New BCC surgical pat ient Navigation & Financial Counseling Discussion Patient Communication: In office SURGEON: [] NANI [] AD [] MP [x] TB [] LM PROCEDURE: [] LRYGB [] LSG [] VIRIDIANA-S [] VIRIDIANA [] UNDECIDED [] REV: SPECIFY: Confirmed pt wants to continue with surgical program/plan [] YES [] NO (complete program withdrawal note/process) CO-MORBIDS: [] NONE [] DM []HTN [] FAITH []GERD [] OTH: PRIVATE PAY: [] NO []YES DATE OF INITIAL BENEFITS VERIFICATION: TRANSFER FU: [] YES [] NO PRIMARY INSURANCE: Payor: mokono / Plan: mokono / Product Type: Commercial / BENEFIT ON PLAN: [] NO [] YES BENEFIT MAX: [] NO [] YES -- BENEFIT MAX: $ EMPLOYER: DIET AND EXERCISE (DE) REQUIREMENT PRIMARY [] NONE [x]3M [] 6M []9M [] Medicare 4 Months [] SPR (3M) []OTHER: SECONDARY INSURANCE: BENEFIT ON PLAN: [] NO [] YES BENEFIT MAX: [] NO [] YES -- BENEFIT MAX: $ AUTH REQUIRED FROM SECONDARY [] NO [] YES DIET AND EXERCISE REQUIREMENT SECONDARY [] NONE []3M [] 6M [] Medicare 4 months [] SPR (3M) []OTHER: ___ [] Discussed with patient: Financial cost overview (document signed and pt given copy at new pt consult visit with surgeon), Initial appointments: Bariatric Nutrition Assessment (BNA) & Diet and Exercise (DE) Patient to look for yellow envelope in mail. This yellow envelope will contain orders for labs, testing and required clearances. Pt encouraged to complete early in program to prevent delays. Encourage blood work to be draw by 1st DE appointment. [] Reviewed OOP cost, including: [] Overview of inpatient admission benefits - estimated inpatient co-pays, deductibles and/or co-insurance - Estimated OOP costs form reviewed with patient, and copy given to patient at new pt visit. [] Reviewed next steps with patient: 1) Scheduled at new pt surgeon visit: Inventory Control/Shipping Receiving (RD) for a Nutrition Assessment (BNA) and Pre-operative Diet and Exercise (DE) appointment #1. [] Patient reminded to arrive 15 minutes early for check in. Late arrivals may need to be rescheduled. 2) Schedule: Diet and Exercise Apt #2 only scheduled after initial BNA and DE completed, 3) Behavioral Health apt scheduled after DE started. Reviewed rational and goal of Behavioral Health appointments. 4) [] Reinforced need to cancel any WMI appointments 48 hours in advance. Cautioned NS/Same day cancellations may result in delay in program or program completion hold. Noted: DE series needs to be a monthly series or insurance company may require repeat of the entire series. 5) [] Smoker/tobacco products including vaping: reviewed need for cessation before surgery clearance and life long abstinence after surgery for best outcomes. Patient navigation to surgery: [] Explained to patient that average time from initial consult to date of surgery can be 6-8 months. - Process can take longer if there are cancelled appointments, delays in testing and/or additional clearances that needs to be completed. - Reviewed importance of patient active engagement in making and keeping appointments to keep the process moving. - Reinforced need to cancel appointments at least 48 hours in advance. Reviewed that instances of No Shows and Same Day Appointment Cancellations may result in program/surgery delay or hold. [] Patient advised of importance of having voicemail and MyChart for office communications and lab/testing results before and after surgery. PROGRESS NOTE Observed: 01/04/2025 10:30 AM Status: COMPLETED Source: [facility] SURGICAL WEIGHT LOSS MANAGEMENT PROGRAM Rooming Note - INITIAL CONSULTATION Patient: aT Brantley Date of : 1975 Service Date: 01/04/2025 Patient is here today to discuss the possibility of weight loss surgery. Physician Supervised D/E: 3 Weight Metrics: Vitals BP: (!) 145/78 Heart Rate: 72 Resp: 16 Baseline Measures Initial Height: 6' 3.75 (192.4 cm) Initial Weight: 308 lb 12.8 oz (140 kg) Initial BMI: 37.9 Initial EBW: 108 lb 4.8 oz (49.1 kg) Initial Waist Cricumference: 53.5 Initial Neck Circumference: 22 Measurements IBW in lbs: 200.5 lb Initial BMI: 37.83 Weight: (!) 308 lb 12.8 oz (140 kg) BMI (Calculated): 37.9 % Excess Weight Loss: 0 Percent Weight Change Since Last Visit: 140.07 kg Initial Excess Weight (kg): -90.95 kg Initial Neck Circumference: 22 Initial Waist Cricumference: 53.5 History of Difficult Intubation: No Patient is not on home O2 Manual provided Yes Completed by: Lnidy Valle MA OFFICE VISIT Observed: 01/04/2025 10:30 AM Status: COMPLETED Source: [facility] [id number] Ta Brantley M Date Provider Department Center 01/04/2025 [id number] [facility] SUR[facility] None Family History Problem Relation Age of Onset Heart attack Mother Stroke Mother Diabetes Mother Dementia Mother Obesity Mother Drug abuse Mother Depression Mother Diabetes Mother Hypertension Mother Stroke Mother Dementia Mother Heart attack Mother Arthritis Mother Hearing loss Mother Heart disease Mother Mental illness Mother Suicide Attempts Mother Coronary artery disease Father Heart failure Father Diabetes Father Heart failure Father Diabetes Father Coronary artery disease Father Arthritis Father Hearing loss Father Heart disease Father Diabetes Maternal Grandmother Hearing loss Maternal Grandmother Heart disease Maternal Grandmother Diabetes Maternal Grandfather Colon cancer Maternal Grandfather Hearing loss Maternal Grandfather Heart disease Maternal Grandfather Cancer Paternal Grandmother Cancer Paternal Grandmother Diabetes Paternal Grandmother Hearing loss Paternal Grandmother Heart disease Paternal Grandmother Cancer Paternal Grandfather Family Status - Relation Status Age at Mother Mother Alive Father Alive Father Alive Maternal Grandmother Alive Maternal Grandfather Alive Paternal Grandmother Paternal Grandmother Alive Paternal Grandfather Paternal Grandfather Alive Level of Service:40009 [place] OFFICE/OUTPATIENT NEW MODERATE MDM 45 MINUTES Reason for Visit and Comments: Weight Management [645] - NEW PROGRESS NOTE Observed: 01/04/2025 10:30 AM Status: COMPLETED Source: [facility] BARIATRIC AND METABOLIC SURG [facility] INITIAL EVALUATION - HISTORY AND PHYSICAL 01/04/2025 PATIENT: Ta Brantley DATE OF : 1975 HISTORY OF PRESENT ILLNESS Chief Complaint: Morbid Obesity and associated comorbid conditions. Ta Brantley is a 49 y.o. male with morbid obesity and associated comorbid conditions who [facility] for bariatric surgery. The patient stands Height: 6' 3.75 (192.4 cm) tall with a weight of Weight: (!) 308 lb 12.8 oz (140 kg) , and has a BMI of Body mass index is 37.84 kg/m?.. The patient has failed multiple attempts at non-surgical weight loss, and is now seeking surgical intervention to promote permanent and consistent weight loss. The patient suffers from multiple co-morbidities as a result of morbid obesity as outlined in the past medical history. The patient denies a history of myocardia infarction, deep vein thrombosis, pulmonary embolism, renal failure, hepatic failure, stroke, and seizure. He does not smoke, and does drink alcohol. Review of Systems PAST HISTORIES Medical History[1] Surgical History[2] Family History[3] Social History Tobacco Use Smoking status: Former Current packs/day: 0.00 Types: Cigarettes Start date: 09/26/1996 Quit date: 09/26/2006 Years since quittin.2 Passive exposure: Never Smokeless tobacco: Former Types: Snuff Quit date: 09/26/2013 Substance Use Topics Alcohol use: Yes Alcohol/week: 1.0 standard drink of alcohol Types: 1 Cans of beer per week Comment: socially Patient's Medications New Prescriptions No medications on file Previous Medications AMLODIPINE (NORVASC) 5 MG TABLET Take 5 mg by mouth daily. ASPIRIN 81 MG EC TABLET Take 81 mg by mouth daily. ATORVASTATIN (LIPITOR) 40 MG TABLET Take 40 mg by mouth Nightly. BUPROPION XL (WELLBUTRIN XL) 300 MG 24 HR TABLET CARVEDILOL (COREG) 12.5 MG TABLET CLONIDINE (CATAPRES) 0.1 MG TABLET Take 1 tablet (0.1 mg) by mouth 3 times daily. CONTINUOUS BLOOD GLUC SENSOR (FREESTYLE TIM 2 SENSOR) MISC DULOXETINE (CYMBALTA) [address] CAPSULE Take 90 mg by mouth daily. FERROUS SULFATE 325 (65 FE) MG TABLET Take 325 mg by mouth. GABAPENTIN (NEURONTIN) 300 MG CAPSULE Take 300 mg by mouth Nightly. HUMALOG KWIKPEN 200 UNIT/ML SOLUTION PEN-INJECTOR PEN Inject 200 Units under the skin. To fill insulin pump HYDRALAZINE (APRESOLINE) 25 MG TABLET Take 1 tablet (25 mg) by mouth 3 times daily for 8 days. HYDROXYZINE HCL (ATARAX) 25 MG TABLET Take 25 mg by mouth 3 times daily as needed. LISINOPRIL 20 MG TABLET Take 20 mg by mouth 2 times daily. LORAZEPAM (ATIVAN) 0.5 MG TABLET Take 0.5 mg by mouth every 6 hours as needed for anxiety. MAGNESIUM GLUCONATE (MAGONATE) 500 MG TABLET Take by mouth. METFORMIN (GLUCOPHAGE) 1000 MG TABLET Take 1,000 mg by mouth 2 times daily. METOCLOPRAMIDE (REGLAN) 5 MG TABLET TAKE 1 TABLET BY MOUTH BEFORE MEALS AND AT BEDTIME. MUPIROCIN (BACTROBAN) 2 % OINTMENT Apply topically daily. Apply daily on right third finger PRAMIPEXOLE (MIRAPEX) 0.5 MG TABLET Take 0.5 mg by mouth Nightly. ROPINIROLE (REQUIP) 1 MG TABLET Take 1 mg by mouth in the morning and 1 mg in the evening. TRAZODONE (DESYREL) 100 MG TABLET Take 100 mg by mouth Nightly as needed for sleep. TRIAMTERENE-HYDROCHLOROTHIAZIDE (MAXZIDE-25) 37.5-25 MG TABLET Take 1 tablet by mouth daily. Modified Medications No medications on file Discontinued Medications No medications on file Allergies[4] PHYSICAL EXAM BP (!) 145/78 Pulse 72 Resp 16 Ht 6' 3.75 (1.924 m) Wt (!) 308 lb 12.8 oz (140 kg) BMI 37.84 kg/m? General: This patient is awake, alert, and oriented, with normal affect and is in no apparent distress. Cardiac: Regular rate and rhythm without evidence of murmur. Respiratory: Clear to auscultation bilaterally with normal effort. Abdomen: Obese, soft, non-tender, non-distended without masses/ No evidence of abdominal hernia / Incisions consistent with previous surgeries. Head and Neck: Obese, normocephalic and atraumatic/soft and supple, no lymphadenopathy or obvious bruits. No thyroidmegaly. Extremities: No cyanosis, clubbing or edema/ No calf tenderness/No restrictions of movement, is ambulatory without assistance. Neurological: Intact x 4 extremities, normal sensation, no focal deficits notes. Skin: Skin cool, warm and dry. No rashes or lesions noted. Rectal: Deferred LABORATORY STUDIES Laboratory Studies: No results for input(s): NA, K, CL, CO2, BUN, CREATININE, GLUCOSE, CALCIUM in the last 72 hours. No results for input(s): WBC, RBC, HGB, HCT, MCV, MCH, MCHC, RDW, PLT, MPV in the last 72 hours. No results for input(s): ALKPHOS, ALT, AST, PROT, BILITOT, BILIDIR, LIPASE in the last 72 hours. No lab exists for component: LABALBU ASSESSMENT Based on today's evaluation, the patient is a candidate for surgery. He chose the procedure as documented below in the plan. In anticipation of weight reductive surgery now or in the future, we spent a great deal of time discussing the risks and benefits of , including but not limited to injury to intra-abdominal organs, breakdown of the gastric staple line, the need for re-operative therapy, prolonged hospitalization, mechanical ventilation, and . We discussed the possibility of bleeding, the need for blood transfusions, blood clots, hospital-acquired and intra-abdominal infection, anastomotic stricture, and worsening GERD. And we discussed the need for post-operative visit compliance, behavior modifications and diet changes, protein and vitamin supplementation, as well as routine scheduled and dedicated exercise. We discussed the potential weight loss benefit of approximately 60-70% of his excess body weight at 12-18 months post-op, as well as the possibility of insufficient weight loss or weight gain after 2 years post-operative time. Upon completion of all required pre-operative testing we will submit for insurance pre-authorization. If the patient has chosen or is strongly considering gastric bypass we discussed that in the event that gastric bypass could not be safely performed, such as extensive scar tissue, patient intolerance of anesthesia, excessive truncal obesity etc, the laparoscopic sleeve gastrectomy was discussed including the risks and benefits as listed above. The patient did agree to laparoscopic sleeve gastrectomy as an alternative procedure if the laparoscopic terrie en y bypass could not be performed. PLAN Encounter Diagnoses Name Primary? Type 2 diabetes mellitus with hyperglycemia, with long-term current use of insulin (HCC) Yes Hyperlipidemia, unspecified hyperlipidemia type Primary hypertension Class 2 severe obesity due to excess calories with serious comorbidity and body mass index (BMI) of 37.0 to 37.9 in adult ([facility]) I have recommended proceeding with the evaluation and work-up for the primary procedure as outlined below: Dr. Layne PATIENT SUMMARY Ta Brantley 49 y.o. male with Body mass index is 37.84 kg/m?. Laparoscopic Terrie-en-Y Gastric Bypass and Laparoscopic Sleeve Gastrectomy DM[x] HTN[x] FAITH[x] GERD[] HL[] OA[] Date of Surgery: TBD RORY GREENFIELD MD INITIAL TESTING RESULTS Labwork [x] CMP, TSH, Fasting Lipid Profile, Mg, Zinc, Vit B1 (whole blood), Vit B12, 25-OH Vit D, Fe, Ferritin, Folate Tobacco [] Serum Nicotine / Cotinine [] Negative [] Positive PLEASE ADD SERUM NICOTINE/COTININE WITH INITIAL LABS ON ALL LRYGB PROCEDURES EGD [x] Dx: [] GERD [x] Dyspepsia [] Other Pathology [x] H. pylori [] Negative [] Positive UGI [] [] not ordered US Abdomen [] [] not ordered S/p xavier FAITH eval [] [] On CPAP / Obtain settings Hematology [] [] Hypercoagulation panel Toxicology [] [] Urine drug screen [] EtOH screen Addtional [x] [x] Hgb A1c INITIAL CONSULTATIONS CLEARANCE / MANAGEMENT Psychology [x] Dietitian [x] Cardiology [x] Pulmonary [x] Dr. fang Others [] []Heme/Onc []Psychiatry []Pain mgmt PSD [x] Physician supervised diet: []None []3 mos []6 mos Preop diet [x] Preop low calorie diet: []None []1 wk [x]2 wks FINAL PRE-OP TESTING RESULTS Labwork [x] [x]Pre-op CBC [x]BMP []Serum Nicotine / Cotinine EKG [x] CXR [x] POST-OP MEDICATIONS Ulcer Ppx [] Omeprazole 20 mg PO []QD []BID Gallstone Ppx [] Ursodiol 300 mg []BID DVT Ppx [x] DVT prophylaxis per final preop visit estimated risk Estimated calculated risk: % Schedule final pre-operative office visit with surgeon, pre-operative education class, and pre-operative exercise class prior to date of surgery ATTESTATION I reviewed with the patient the details of the proposed operation. The risks benefits and options were discussed. Risks included but were not limited to bleeding, infection, damage to other surrounding organs, cardio-pulmonary complications related to anesthesia, conversion from laparoscopic to and open procedure, the need for reoperative or endoscopic therapy, the potential for prolonged mechanical ventilation, and . All questions were fully answered to the patient's satisfaction and they wish to proceed with surgical intervention. 45 minutes of the visit was spent as face to face encounter, counseling the patient and discussing the risks,benefits and options of surgery as well as the perioperative care plan. The patient was seen and examined independently and relevant data including a full chart rreview was performed by myself. Patient Care Team: Rory Greenfield MD as PCP - General Froy Mensah MD as Surgeon (Urology) Orville Snell MD as Surgeon (Urology) Niko Layne MD as Surgeon (General Surgery) [1] Past Medical History: Diagnosis Date ADHD Anxiety Arthritis Autonomic neuropathy Back pain CAD (coronary artery disease) Daytime sleepiness Depression Diabetes mellitus (HCC) Difficulty sleeping Difficulty walking Disorder of jaw difficulty opening and closing Fatigue Heart murmur Hypertension Joint pain hip and knee Memory difficulties Morbid obesity, unspecified obesity type (HCC) 12/29/2024 Muscle weakness Neuropathy FAITH (obstructive sleep apnea) Restless leg syndrome Snoring SOB (shortness of breath) Uses hearing aid [2] Past Surgical History: Procedure Laterality Date CHOLECYSTECTOMY 2023 CORONARY ANGIOPLASTY WITH STENT PLACEMENT Bilateral 2020 LEG AMPUTATION THROUGH LOWER TIBIA AND FIBULA Right 07/18/2021 Dr. Engle OTHER SURGICAL HISTORY Left 09/26/2020 left leg debridement to muscle TOE AMPUTATION Left 06/27/2023 4th toe- Dr. Keys [3] Family History Problem Relation Name Age of Onset Heart attack Mother Stroke Mother Diabetes Mother Dementia Mother Obesity Mother Drug abuse Mother Maria Guadalupe Depression Mother Maria Guadalupe Diabetes Mother Maria Guadalupe Hypertension Mother Maria Guadalupe Stroke Mother Maria Guadalupe Dementia Mother Maria Guadalupe Heart attack Mother Maria Guadalupe Arthritis Mother Maria Guadalupe Hearing loss Mother Maria Guadalupe Heart disease Mother Maria Guadalupe Mental illness Mother Maria Guadalupe Suicide Attempts Mother Maria Guadalupe Coronary artery disease Father Heart failure Father Diabetes Father Heart failure Father Jose E Diabetes Father Jose E Coronary artery disease Father Jose E Arthritis Father Jose E Hearing loss Father Jose E Heart disease Father Jose E Diabetes Maternal Grandmother Baker Hearing loss Maternal Grandmother Baker Heart disease Maternal Grandmother Baker Diabetes Maternal Grandfather Reji Colon cancer Maternal Grandfather Reji Hearing loss Maternal Grandfather Reji Heart disease Maternal Grandfather Reji Cancer Paternal Grandmother Cancer Paternal Grandmother Aurora Diabetes Paternal Grandmother Trinity Hearing loss Paternal Grandmother Trinity Heart disease Paternal Grandmother Aurora Cancer Paternal Grandfather [4] Allergies Allergen Reactions Morphine Chest pain PROGRESS NOTE Observed: 12/30/2024 9:00 AM Status: COMPLETED Source: [facility] Wound Care Consult, Progress, and Procedure Note Ta Brantley AGE: 49 y.o. GENDER: male : 1975 EPISODE DATE: Subjective: Patient presents for evaluation of wound HISTORY of PRESENT ILLNESS HPI Ta Brantley is a 49 y.o. male who presents today for wound/ulcer evaluation. History of Wound Context: Burn on left hand mostly second degree with blistering no SOI done 5 days ago 12/30 wounds all healing well patient without pain no SOI Interval History: Patient presents today for follow up on wound/ulcer's progression. The patient is currently not on antibiotics. Current dressing care includes see RN notes Contributing Factors: DM PAST MEDICAL HISTORY Medical History[1] PAST SURGICAL HISTORY Surgical History[2] FAMILY HISTORY Family History[3] SOCIAL HISTORY Social History[4] ALLERGIES Allergies[5] MEDICATIONS Medications Ordered Prior to Encounter[6] REVIEW OF SYSTEMS Patient denies CP,SOB, tolerating diet NO F/C otherwise negative ROS accept noted in HPI Objective: BP 108/66 Pulse 73 Temp 36.2 ?C (97.2 ?F) Resp 16 Wt Readings from Last 3 Encounters: 05/14/24 (!) 315 lb (143 kg) 05/12/24 (!) 315 lb (143 kg) 08/14/23 300 lb (136 kg) PHYSICAL EXAM Visit Vitals BP 108/66 Pulse 73 Temp 36.2 ?C (97.2 ?F) Resp 16 GEN: NAD Alert appears stated age PULM: Breathing without difficulty CV: Stable GI: Soft ND NT tolerating diet EXT: see wound notes Wound Assessment: LABS Lab Results Component Value Date WBC 6.7 07/05/2024 HGB 13.2 07/05/2024 HCT 40.6 07/05/2024 MCV 83.9 07/05/2024 PLT 199 07/05/2024 Lab Results Component Value Date NA 137 07/05/2024 K 4.6 07/05/2024 CL 103 07/05/2024 CO2 25 07/05/2024 BUN 18 07/05/2024 CREATININE 1.12 07/05/2024 No results found for: PROTIME, INR No results found for: PREALBUMIN No components found for: LABALBU No results found for: SEDRATE Assessment: Wound: Burn Ulcer: N/A Procedure Note Indications: Based on my examination of this patient's wound(s)/ulcer(s) today, debridement is not required to promote healing and evaluate the extent healing. Procedures Mechanical debridement done with 4X4 Plan: Patient examined and evaluated Patient understands all that has been explained to her and wishes to proceed with current treatment. Patient understands all risks, benefits, procedures, radha-operative management, and possible complications. All questions answered and no guarantees made or implied. Treatment: Orders Placed This Encounter Procedures Dressing Order: Soap & water; Daily; (Band-Aids to open areas); Bactroban Scheduling Instructions: Discharge Wound Cleansing: Soap & water Dressing Frequency: Daily Topical: Bactroban Topical AB ointment Keep area clean Wear gloves to protect new skin with any activity Chart reviewed Educated on S/S of infection Nutrition education provided Offloading instructions given Dressing changes as ordered, see orders above Told to call clinic if questions or concerns may arise Follow up PRN Written patient dismissal instructions given to patient and signed by patient or POA. [1] Past Medical History: Diagnosis Date Anxiety CAD (coronary artery disease) Depression Diabetes mellitus (HCC) Hypertension Morbid obesity, unspecified obesity type (HCC) 12/29/2024 Neuropathy [2] Past Surgical History: Procedure Laterality Date CHOLECYSTECTOMY CORONARY ANGIOPLASTY WITH STENT PLACEMENT Bilateral LEG AMPUTATION THROUGH LOWER TIBIA AND FIBULA Right 07/18/2021 OTHER SURGICAL HISTORY Left 09/26/2020 left leg debridement to muscle TOE AMPUTATION Left 06/27/2023 4th toe [3] Family History Problem Relation Name Age of Onset Heart attack Mother Stroke Mother Diabetes Mother Dementia Mother Coronary artery disease Father Heart failure Father Diabetes Father Cancer Paternal Grandmother Cancer Paternal Grandfather [4] Social History Tobacco Use Smoking status: Former Types: Cigarettes Passive exposure: Never Smokeless tobacco: Never Vaping Use Vaping status: Never Used Substance Use Topics Alcohol use: Yes Comment: socially Drug use: Never [5] Allergies Allergen Reactions Morphine Chest pain [6] Current Outpatient Medications on File Prior to Encounter Medication Sig Dispense Refill amLODIPine (Norvasc) 5 MG tablet Take 5 mg by mouth daily. aspirin 81 MG EC tablet Take 81 mg by mouth daily. atorvastatin (Lipitor) 40 MG tablet Take 40 mg by mouth Nightly. buPROPion XL (Wellbutrin XL) 300 MG 24 hr tablet carvedilol (Coreg) 12.5 MG tablet TAKE 1 TABLET BY MOUTH TWICE DAILY WITH A MEAL/FOOD cloNIDine (Catapres) 0.1 MG tablet Take 1 tablet (0.1 mg) by mouth 3 times daily. 30 tablet 0 Continuous Blood Gluc Sensor (YCD MultimediaStyle Tim 2 Sensor) misc DULoxetine (Cymbalta) [address] capsule Take 90 mg by mouth daily. ferrous sulfate 325 (65 Fe) MG tablet Take 325 mg by mouth. gabapentin (Neurontin) 300 MG capsule Take 300 mg by mouth Nightly. HumaLOG KWIKPEN 200 UNIT/ML solution pen-injector pen Inject 200 Units under the skin. To fill insulin pump hydrALAZINE (Apresoline) 25 MG tablet Take 1 tablet (25 mg) by mouth 3 times daily for 8 days. 24 tablet 0 hydrOXYzine HCl (Atarax) 25 MG tablet Take 25 mg by mouth 3 times daily as needed. lisinopril 20 MG tablet Take 20 mg by mouth 2 times daily. LORazepam (Ativan) 0.5 MG tablet Take 0.5 mg by mouth every 6 hours as needed for anxiety. magnesium gluconate (Magonate) 500 MG tablet Take by mouth. metFORMIN (Glucophage) 1000 MG tablet Take 1,000 mg by mouth 2 times daily. metoclopramide (Reglan) 5 MG tablet TAKE 1 TABLET BY MOUTH BEFORE MEALS AND AT BEDTIME. mupirocin (Bactroban) 2 % ointment Apply topically daily. Apply daily on right third finger 22 g 1 pramipexole (Mirapex) 0.5 MG tablet Take 0.5 mg by mouth Nightly. rOPINIRole (Requip) 1 MG tablet Take 1 mg by mouth in the morning and 1 mg in the evening. traZODone (Desyrel) 100 MG tablet Take 100 mg by mouth Nightly as needed for sleep. triamterene-hydrochlorothiazide (Maxzide-25) 37.5-25 MG tablet Take 1 tablet by mouth daily. No current facility-administered medications on file prior to encounter. 37 Observed: 12/30/2024 9:00 AM Status: COMPLETED Source: [facility] Cleanse wound with soap and water and change dressings daily. After cleansing apply a thin layer of mupirocin on wounds, and cover with a dry dressing. Keep dressings clean and dry. Call to schedule follow up as needed. Signs and symptoms of wound infection: - fever - flu-like symptoms - pus or unusual drainage - foul odor - worsening of wound - spreading redness or warmth around the wound - increased pain - increasing and/or uncontrolled blood sugar for diabetics Call the wound care clinic to report these symptoms. When the wound care clinic is closed (after hours, weekends, or holidays), go to urgent care or the emergency department for treatment. You should go directly to the emergency department for severe signs or symptoms of infection. PROGRESS NOTE Observed: 12/30/2024 9:00 AM Status: COMPLETED Source: [facility] Assessments Nursing Assessment/Reassessment Score (check box all that apply) Reassessment of Co-morbidities (includes updates in patient status) 10 [x] Wound and Skin Assessment/Reassessment 5 [] Reassessment of Adherence to Treatment Plan Simple Wound Assessment / Reassessment - one wound 5 [x] Complex Wound Assessment - multiple wounds (# of: ) multiply by 5 to get score [] Dermatologic / Skin Assessment (not related to wound area) 10 [] Focused Assessment Circumferential Edema Measurements - multi extremities (# of: ) multiply by 5 to get score [] Nutritional Assessment/Counseling/Intervention 10 [x] Lower Extremity Assessment (monofilament, tuning fork, pulses) 5 [] Peripheral Arterial Disease Assessment (using hand-held doppler) 10 [] Ostomy and/or Continence Assessment & Care Incontinence Assessment and Management 10 [] Ostomy Care Assessment and Management (repouching, etc) 20 [] Process Coordination of Care Simple Patient/Family Education for ongoing care 15 [x] Complex (extensive) Patient/Family Education for ongoing of care 20 [] Staff obtains Consent, Records, Test Results/Process Orders 10 [] Staff telephones [employer]SE[employer]IDES TEACHER, Nursing Homes/Clarify Orders 10 [] Routine Transfer to another Facility (non-emergent condition) 10 [] Routine Hospital Admission (non-emergent condition) 10 [] New Admissions/Insurance Auth/Ordering NPWT, skin substitute, etc. 15 [] Emergency Hospital Admission (emergent condition) 20 [] Simple Discharge Coordination 10 [x] Complex (extensive) Discharge Coordination 15 [] Special Needs Pediatric / Minor Patient Management 10 [] Isolation Patient Management 10 [] Hearing/Language/Visual Special Needs 15 [] Assessment of Community Assistance (transportation, discharge planning) 15 [] Additional Assistance / Altered Mentation 15 [] Support Surface Assessment (bed, cushion, seat) 15 [] Interventions Wound Cleansing/Measurement Simple Wound Cleansing - one wound 5 [x] Complex Wound Cleansing - multiple wounds (# of: ) multiply by 5 to get score [] Wound Imaging (photographs - any number of wounds) 5 [x] Wound Tracing (instead of photographs) 5 [] Simple Wound Measurements - one wound 5 [x] Complex Wound Measuremnts - multiple wounds (#of: ) multiply by 5 to get score [] Wound Dressings Small Wound Dressing - one or multiple wounds (# of: ) multiply by 10 to get score 10 [x] Medium Wound Dressing - one or multiple wounds (# of: ) multiply by 15 to get score [] Large Wound Dressing - one or multiple wounds (# of: ) multiply by 20 to get score [] Application of Medications - topical 5 [x] Application of Medication - injection 10 [] Miscellaneous External Ear Exam Specimen Collection (culture, biopsies, blood, body fluids, etc) 5 [] Specimen/Culture sent or taken to lab for analysis 5 [] Patient Transfer (multiple staff/Shahzad lift) 10 [] Simple Staple/Suture Removal (25 or less) 5 [] Complex Staple/Suture Removal (26 or more) 10 [] Hypo/Hyperglycemic Management 10 [] Ankle/Brachial Index (JACOB) 15 [] Vital Signs 5 [x] Total Points - Use to Determine Level of Clinic Visit 85 Points Muller: Level 1 (1-35 Points) Level 2 (40-75 Points) Level 3 (80-115 Points) Level 4 (120-155 Points) Level 5 (160 or more Points) PROGRESS NOTE Observed: 12/23/2024 8:15 AM Status: COMPLETED Source: [facility] Assessments Nursing Assessment/Reassessment Score (check box all that apply) General Physical Exam 20 [x] Comprehensive Assessment (hx, ROS, Risk Assessment, Wound hx) 25 [x] Wound and Skin Assessment Simple Wound Assessment / Reassessment - one wound 5 [x] Complex Wound Assessment - multiple wounds (# of: ) - multiply by 5 to get score [] Dermatologic / Skin Assessment (not related to wound area) 10 [] Ostomy and/or Continence Assessment & Care Incontinence Assessment and Management 10 [] Ostomy Care Assessment and Management (repouching, etc) 20 [] Process Coordination of Care Simple Patient/Family Education for ongoing care 15 [x] Complex (extensive) Patient/Family Education for ongoing of care 20 [] Staff obtains Consent, Records, Test Results/Process Orders 10 [x] Staff telephones [facility], Nursing [facility]/Clarify Orders 10 [] Routine Transfer to another Facility (non-emergent condition) 10 [] Routine Hospital Admission (non-emergent condition) 10 [] New Admissions/Insurance Auth/Ordering NPWT, skin substitute, etc. 15 [x] Emergency Hospital Admission (emergent condition) 20 [] Simple Discharge Coordination 10 [x] Complex (extensive) Discharge Coordination 15 [] Special Needs Pediatric / Minor Patient Management 10 [] Isolation Patient Management 10 [] Hearing/Language/Visual Special Needs 15 [] Assessment of Community Assistance (transportation, discharge planning) 15 [] Additional Assistance / Altered Mentation 15 [] Support Surface Assessment (bed, cushion, seat) 15 [] Interventions Wound Cleansing/Measurement Simple Wound Cleansing - one wound 5 [x] Complex Wound Cleansing - multiple wounds (# of: ) multiply by 5 to get score [] Wound Imaging (photographs - any number of wounds) 5 [x] Wound Tracing (instead of photographs) 5 [] Simple Wound Measurements - one wound 5 [x] Complex Wound Measuremnts - multiple wounds (#of: ) multiply by 5 to get score [] Wound Dressings Small Wound Dressing (one or multiple wounds (# of: 1) multiply by 10 to get score 10 [x] Medium Wound Dressing (one or multiple wounds (# of: ) multiply by 15 to get score [] Large Wound Dressing (one or multiple wounds (# of: ) multiply by 20 to get score [] Application of Medication - injection 10 [] Miscellaneous External Ear Exam 5 [] Specimen Collection (culture, biopsies, blood, body fluids, etc) 5 [] Specimen/Culture sent or taken to lab for analysis 5 [] Patient Transfer (multiple staff/Shahzad lift) 10 [] Simple Staple/Suture Removal (25 or less) 5 [] Complex Staple/Suture Removal (26 or more) 10 [] Hypo/Hyperglycemic Management 10 [] Ankle/Brachial Index (JACOB) 15 [] Total Points - Use to Determine Level of Clinic Visit 125 Points Muller: Level 1 (1-35 Points) Level 2 (40-75 Points) Level 3 (80-115 Points) Level 4 (120-155 Points) Level 5 (160 or more Points) 29 Observed: 12/23/2024 8:15 AM Status: COMPLETED Source: [facility] Encounter addended by: Kera Alexis RN on: 12/24/2024 1:34 PM Actions taken: Episode resolved, Episode edited PROGRESS NOTE Observed: 12/23/2024 8:15 AM Status: COMPLETED Source: [facility] Wound Care Consult, Progress, and Procedure Note Ta Brantley AGE: 49 y.o. GENDER: male : 1975 EPISODE DATE: Subjective: Patient presents for evaluation of wound HISTORY of PRESENT ILLNESS HPI Ta Brantley is a 49 y.o. male who presents today for wound/ulcer evaluation. History of Wound Context: Burn on left hand mostly second degree with blistering no SOI done 5 days ago Interval History: Patient presents today for follow up on wound/ulcer's progression. The patient is currently not on antibiotics. Current dressing care includes see RN notes Contributing Factors: DM PAST MEDICAL HISTORY Medical History[1] PAST SURGICAL HISTORY Surgical History[2] FAMILY HISTORY Family History[3] SOCIAL HISTORY Social History[4] ALLERGIES Allergies[5] MEDICATIONS Medications Ordered Prior to Encounter[6] REVIEW OF SYSTEMS Patient denies CP,SOB, tolerating diet NO F/C otherwise negative ROS accept noted in HPI Objective: BP 100/60 Pulse 66 Temp 36.1 ?C (96.9 ?F) Resp 16 Wt Readings from Last 3 Encounters: 05/14/24 (!) 315 lb (143 kg) 05/12/24 (!) 315 lb (143 kg) 08/14/23 300 lb (136 kg) PHYSICAL EXAM Visit Vitals BP 100/60 Pulse 66 Temp 36.1 ?C (96.9 ?F) Resp 16 GEN: NAD Alert appears stated age PULM: Breathing without difficulty CV: Stable GI: Soft ND NT tolerating diet EXT: see wound notes Wound Assessment: Wound/Incision 12/23/24 Traumatic Hand Anterior;Left (Active) Wound Image 12/23/24 0837 Site Assessment Granulation 12/23/24 0837 Radha-Wound Assessment Blistered 12/23/24 0837 Wound Length (cm) 6.5 cm 12/23/24 0837 Wound Width (cm) 7.5 cm 12/23/24 0837 Wound Surface Area (cm^2) 38.29 cm^2 12/23/24 0837 Wound Depth (cm) 0.1 cm 12/23/24 0837 Wound Volume (cm^3) 2.553 cm^3 12/23/24 0837 Drainage Description Serosanguineous 12/23/24 0837 Drainage Amount Scant 12/23/24 0837 Treatments Cleansed 12/23/24 0837 Burn Assessment Grannulation tissue 12/23/24 0837 Burn Wound Characteristics Blisters 12/23/24 0837 LABS Lab Results Component Value Date WBC 6.7 07/05/2024 HGB 13.2 07/05/2024 HCT 40.6 07/05/2024 MCV 83.9 07/05/2024 PLT 199 07/05/2024 Lab Results Component Value Date NA 137 07/05/2024 K 4.6 07/05/2024 CL 103 07/05/2024 CO2 25 07/05/2024 BUN 18 07/05/2024 CREATININE 1.12 07/05/2024 No results found for: PROTIME, INR No results found for: PREALBUMIN No components found for: LABALBU No results found for: SEDRATE Assessment: Wound: Burn Ulcer: N/A Procedure Note Indications: Based on my examination of this patient's wound(s)/ulcer(s) today, debridement is not required to promote healing and evaluate the extent healing. Procedures Mechanical debridement done with 4X4 Plan: Patient examined and evaluated Patient understands all that has been explained to her and wishes to proceed with current treatment. Patient understands all risks, benefits, procedures, radha-operative management, and possible complications. All questions answered and no guarantees made or implied. Treatment: No orders of the defined types were placed in this encounter. Topical AB ointment Keep area clean Chart reviewed Educated on S/S of infection Nutrition education provided Offloading instructions given Dressing changes as ordered, see orders above Told to call clinic if questions or concerns may arise Follow up 1 week Written patient dismissal instructions given to patient and signed by patient or POA. [1] Past Medical History: Diagnosis Date Anxiety CAD (coronary artery disease) Depression Diabetes mellitus (HCC) Hypertension Neuropathy [2] Past Surgical History: Procedure Laterality Date CHOLECYSTECTOMY CORONARY ANGIOPLASTY WITH STENT PLACEMENT Bilateral LEG AMPUTATION THROUGH LOWER TIBIA AND FIBULA Right 07/18/2021 OTHER SURGICAL HISTORY Left 09/26/2020 left leg debridement to muscle TOE AMPUTATION Left 06/27/2023 4th toe [3] Family History Problem Relation Name Age of Onset Heart attack Mother Stroke Mother Diabetes Mother Dementia Mother Coronary artery disease Father Heart failure Father Diabetes Father Cancer Paternal Grandmother Cancer Paternal Grandfather [4] Social History Tobacco Use Smoking status: Former Types: Cigarettes Passive exposure: Never Smokeless tobacco: Never Vaping Use Vaping status: Never Used Substance Use Topics Alcohol use: Yes Comment: socially Drug use: Never [5] Allergies Allergen Reactions Morphine Chest pain [6] Current Outpatient Medications on File Prior to Encounter Medication Sig Dispense Refill amLODIPine (Norvasc) 5 MG tablet Take 5 mg by mouth daily. aspirin 81 MG EC tablet Take 81 mg by mouth daily. atorvastatin (Lipitor) 40 MG tablet Take 40 mg by mouth Nightly. buPROPion XL (Wellbutrin XL) 300 MG 24 hr tablet carvedilol (Coreg) 12.5 MG tablet TAKE 1 TABLET BY MOUTH TWICE DAILY WITH A MEAL/FOOD cloNIDine (Catapres) 0.1 MG tablet Take 1 tablet (0.1 mg) by mouth 3 times daily. 30 tablet 0 ferrous sulfate 325 (65 Fe) MG tablet Take 325 mg by mouth. gabapentin (Neurontin) 300 MG capsule Take 300 mg by mouth Nightly. HumaLOG KWIKPEN 200 UNIT/ML solution pen-injector pen Inject 200 Units under the skin. To fill insulin pump magnesium gluconate (Magonate) 500 MG tablet Take by mouth. metFORMIN (Glucophage) 1000 MG tablet Take 1,000 mg by mouth 2 times daily. pramipexole (Mirapex) 0.5 MG tablet Take 0.5 mg by mouth Nightly. triamterene-hydrochlorothiazide (Maxzide-25) 37.5-25 MG tablet Take 1 tablet by mouth daily. Continuous Blood Gluc Sensor (FreeStyle Tim 2 Sensor) misc DULoxetine (Cymbalta) [address] capsule Take 90 mg by mouth daily. hydrALAZINE (Apresoline) 25 MG tablet Take 1 tablet (25 mg) by mouth 3 times daily for 8 days. 24 tablet 0 hydrOXYzine HCl (Atarax) 25 MG tablet Take 25 mg by mouth 3 times daily as needed. lisinopril 20 MG tablet Take 20 mg by mouth 2 times daily. LORazepam (Ativan) 0.5 MG tablet Take 0.5 mg by mouth every 6 hours as needed for anxiety. metoclopramide (Reglan) 5 MG tablet TAKE 1 TABLET BY MOUTH BEFORE MEALS AND AT BEDTIME. rOPINIRole (Requip) 1 MG tablet Take 1 mg by mouth in the morning and 1 mg in the evening. traZODone (Desyrel) 100 MG tablet Take 100 mg by mouth Nightly as needed for sleep. No current facility-administered medications on file prior to encounter. PROGRESS NOTE Observed: 12/23/2024 8:15 AM Status: COMPLETED Source: [facility] Assessments Nursing Assessment/Reassessment Score (check box all that apply) General Physical Exam 20 [x] Comprehensive Assessment (history, ROS, Risk Assessments, wound hx, etc) 25 [x] Wound and skin Assessment/Reassessment Dermatologic / Skin Assessment (not related to wound area) 10 [] Ostomy and/or Continence Assessment & Care Incontinence Assessment and Management 10 [] Ostomy Care Assessment and Management (repouching, etc) 20 [] Process Coordination of Care Simple Patient/Family Education for ongoing care 15 [x] Complex (extensive) Patient/Family Education for ongoing of care 20 [] Staff obtains Consent, Records, Test Results/Process Orders 10 [x] Staff telephones NURSE'S AIDES TEACHER, Nursing Homes/Clarify Orders 10 [] Routine Transfer to another Facility (non-emergent condition) 10 [] Routine Hospital Admission (non-emergent condition) 10 [] New Admissions/Insurance Auth/Ordering NPWT, skin substitute, etc. 15 [x] Emergency Hospital Admission (emergent condition) 20 [] Special Needs Pediatric / Minor Patient Management 10 [] Isolation Patient Management 10 [] Hearing/Language/Visual Special Needs 15 [] Assessment of Community Assistance (transportation, discharge planning) 15 [] Additional Assistance / Altered Mentation 15 [] Support Surface Assessment (bed, cushion, seat) 15 [] Interventions Miscellaneous External Ear Exam 5 [] Patient Transfer (multiple staff/Shahzad lift) 10 [] Simple Staple/Suture Removal (25 or less) 5 [] Complex Staple/Suture Removal (26 or more) 10 [] Hypo/Hyperglycemic Management 10 [] Ankle/Brachial Index (JACOB) 15 [] Total Points - Use to Determine Level of Clinic Visit 85 Points Muller: Level 1 (1-35 Points) Level 2 (40-75 Points) Level 3 (80-115 Points) Level 4 (120-155 Points) Level 5 (160 or more Points) PROGRESS NOTE Observed: 12/23/2024 8:15 AM Status: COMPLETED Source: [facility] Assessments Nursing Assessment/Reassessment Score (check box all that apply) General Physical Exam 20 [x] Comprehensive Assessment (hx, ROS, Risk Assessment, Wound hx) 25 [x] Wound and Skin Assessment Simple Wound Assessment / Reassessment - one wound 5 [x] Complex Wound Assessment - multiple wounds (# of: ) - multiply by 5 to get score [] Dermatologic / Skin Assessment (not related to wound area) 10 [] Ostomy and/or Continence Assessment & Care Incontinence Assessment and Management 10 [] Ostomy Care Assessment and Management (repouching, etc) 20 [] Process Coordination of Care Simple Patient/Family Education for ongoing care 15 [x] Complex (extensive) Patient/Family Education for ongoing of care 20 [] Staff obtains Consent, Records, Test Results/Process Orders 10 [x] Staff telephones NURSE'S AIDES TEACHER, Nursing Homes/Clarify Orders 10 [] Routine Transfer to another Facility (non-emergent condition) 10 [] Routine Hospital Admission (non-emergent condition) 10 [] New Admissions/Insurance Auth/Ordering NPWT, skin substitute, etc. 15 [] Emergency Hospital Admission (emergent condition) 20 [] Simple Discharge Coordination 10 [x] Complex (extensive) Discharge Coordination 15 [] Special Needs Pediatric / Minor Patient Management 10 [] Isolation Patient Management 10 [] Hearing/Language/Visual Special Needs 15 [] Assessment of Community Assistance (transportation, discharge planning) 15 [] Additional Assistance / Altered Mentation 15 [] Support Surface Assessment (bed, cushion, seat) 15 [] Interventions Wound Cleansing/Measurement Simple Wound Cleansing - one wound 5 [x] Complex Wound Cleansing - multiple wounds (# of: ) multiply by 5 to get score [] Wound Imaging (photographs - any number of wounds) 5 [x] Wound Tracing (instead of photographs) 5 [] Simple Wound Measurements - one wound 5 [x] Complex Wound Measuremnts - multiple wounds (#of: ) multiply by 5 to get score [] Wound Dressings Small Wound Dressing (one or multiple wounds (# of: 1) multiply by 10 to get score 10 [x] Medium Wound Dressing (one or multiple wounds (# of: ) multiply by 15 to get score [] Large Wound Dressing (one or multiple wounds (# of: ) multiply by 20 to get score [] Application of Medication - injection 10 [] Miscellaneous External Ear Exam 5 [] Specimen Collection (culture, biopsies, blood, body fluids, etc) 5 [] Specimen/Culture sent or taken to lab for analysis 5 [] Patient Transfer (multiple staff/Shahzad lift) 10 [] Simple Staple/Suture Removal (25 or less) 5 [] Complex Staple/Suture Removal (26 or more) 10 [] Hypo/Hyperglycemic Management 10 [] Ankle/Brachial Index (JACOB) 15 [] Total Points - Use to Determine Level of Clinic Visit 105 Points Muller: Level 1 (1-35 Points) Level 2 (40-75 Points) Level 3 (80-115 Points) Level 4 (120-155 Points) Level 5 (160 or more Points) 37 Observed: 12/23/2024 8:15 AM Status: COMPLETED Source: [facility] Cleanse wound with soap and water and change dressings daily. After cleansing apply a thin layer of mupirocin on wound, and cover with a dry dressing. Keep dressings clean and dry. Signs and symptoms of wound infection: - fever - flu-like symptoms - pus or unusual drainage - foul odor - worsening of wound - spreading redness or warmth around the wound - increased pain - increasing and/or uncontrolled blood sugar for diabetics Call the wound care clinic to report these symptoms. When the wound care clinic is closed (after hours, weekends, or holidays), go to urgent care or the emergency department for treatment. You should go directly to the emergency department for severe signs or symptoms of infection. BAS METAB 2000 PNL SERPL Collected: 11:24 AM Status: F Source: [facility] Order Comment: Specimen Type : BLOOD SPECIMEN Ordering Facility: [address] [facility] [address] [place] [address] TYPE CODE TESTS RESULT OUT OF RANGE REFERENCE UNITS LAB 2345-7(LOINC) Glucose SerPl-mCnc 98 74-99 mg/dL Result Comment: The [place] Diabetes Association (ADA) provides guidance for cutoff values for fasting glucose and random glucose. The ADA defines fasting as no caloric intake for at least 8 hours. Fasting plasma glucose results between 100 to 125 mg/dL indicate increased risk for diabetes (prediabetes). Fasting plasma glucose results greater than or equal to 126 mg/dL meet the criteria for diagnosis of diabetes. In the absence of unequivocal hyperglycemia, results should be confirmed by repeat testing. In a patient with classic symptoms of hyperglycemia or hyperglycemic crisis, random plasma glucose results greater than or equal to 200 mg/dL meet the criteria for diagnosis of diabetes. Reference: Standards of Medical Care in Diabetes 2016, [place] Diabetes Association. Diabetes Care. 2016.39(Suppl 1). LAB 3094-0(LOINC) BUN SerPl-mCnc 16 9-24 mg/dL LAB 2160-0(LOINC) Creat SerPl-mCnc 1.06 0.73-1.22 mg/dL LAB 2951-2(LOINC) Sodium SerPl-sCnc 143 136-144 mmol/L LAB 2823-3(LOINC) Potassium SerPl-sCnc 4.5 3.7-5.1 mmol/L LAB 2075-0(LOINC) Chloride SerPl-sCnc 102 98-107 mmol/L LAB 2028-9(LOINC) CO2 SerPl-sCnc 25 22-30 mmol/L LAB 1863-0(LOINC) Anion Gap4 SerPl-sCnc 16 High 8-15 mmol/L LAB 67372-0(LOINC) Calcium SerPl-mCnc 9.0 8.5-10.2 mg/dL LAB 43032-6(LOINC) eGFRcr SerPlBld CKD-EPI 2020 87 >=60 mL/min/1. 73m??? Result Comment: Estimated Gl omerular Filtration Rate (eGFR) is calculated using the 2020 CKD-EPI creatinine equation. This equation utilizes serum creatinine, sex, and age as parameters. The creatinine assay has traceable calibration to isotope dilution-mass spectrometry. Refer to KDIGO guidelines for clinical interpretation. In patients with unstable renal function, e.g. those with acute kidney injury, the eGFR may not accurately reflect actual GFR. Performed By: [facility] [employer] CLIA [id number] [address] PROT/CREAT UR Collected: 5 11:24 AM Status: F Source: [facility] Order Comment: Specimen Type : URINE SPECIMEN Ordering Facility: [address] Address: [address] [place] [address] [place] [id number] TYPE CODE TESTS RESULT OUT OF RANGE REFERENCE UNITS LAB 2888-6(LOINC) Prot Ur-mCnc 49 High 0-20 mg/dL LAB 2161-8(LOINC) Creat Ur-mCnc 126.9 46.8-314.5 mg/dL LAB 2890-2(LOINC) Prot/Creat Ur 0.39 High <0.15 mg/mg Result Comment: Adult Protei lalo Categories: <0.15 mg/mg is considered normal to mildly increased 0.15 - 0.50 mg/mg is considered moderately increased >0.50 mg/mg is considered severely increased KDIGO. (2013). KDIGO 2012 Clinical Practice Guideline for the Evaluation and Management of Chronic Kidney Disease. Official Journal of the International Society of Nephrology, 3(1), 1-150. Performed By: [facility] [employer] CLIA [id number] [address] PROT/CREAT UR Collected: 5 9:16 AM Status: F Source: [facility] Order Comment: Specimen Type : URINE SPECIMEN Ordering Facility: [address] Address: [address] [place], [place] [id number] TYPE CODE TESTS RESULT OUT OF RANGE REFERENCE UNITS LAB 2888-6(LOINC) Prot Ur-mCnc 24 High 0-20 mg/dL LAB 2161-8(LOINC) Creat Ur-mCnc 119.8 20.0-300.0 mg/dL LAB 2890-2(LOINC) Prot/Creat Ur 0.20 High <0.15 mg/mg Result Comment: Adult Protei lalo Categories: <0.15 mg/mg is considered normal to mildly increased 0.15 - 0.50 mg/mg is considered moderately increased >0.50 mg/mg is considered severely increased KDIGO. (2013). KDIGO 2012 Clinical Practice Guideline for the Evaluation and Management of Chronic Kidney Disease. Official Journal of the International Society of Nephrology, 3(1), 1-150. Performed By: [facility] CLIA [id number] [address] [place] [address] [place] BAS METAB 2000 PNL SERPL Collected: 08/2024 9:16 AM Status: F Source: [facility] Order Comment: Specimen Type : BLOOD SPECIMEN Ordering Facility: [address] Address: [address] [place] [address] TYPE CODE TESTS RESULT OUT OF RANGE REFERENCE UNITS LAB 2345-7(LOINC) Glucose SerPl-mCnc 88 74-99 mg/dL Result Comment: The [place] Diabetes Association (ADA) provides guidance for cutoff values for fasting glucose and random glucose. The ADA defines fasting as no caloric intake for at least 8 hours. Fasting plasma glucose results between 100 to 125 mg/dL indicate increased risk for diabetes (prediabetes). Fasting plasma glucose results greater than or equal to 126 mg/dL meet the criteria for diagnosis of diabetes. In the absence of unequivocal hyperglycemia, results should be confirmed by repeat testing. In a patient with classic symptoms of hyperglycemia or hyperglycemic crisis, random plasma glucose results greater than or equal to 200 mg/dL meet the criteria for diagnosis of diabetes. Reference: Standards of Medical Care in Diabetes 2016, [place] Diabetes Association. Diabetes Care. 2016.39(Suppl 1). LAB 3094-0(LOINC) BUN SerPl-mCnc 21 9-24 mg/ dL LAB 2160-0(LOINC) Creat SerPl-mCnc 1.28 High 0.73-1.22 mg/dL LAB 2951-2(LOINC) Sodium SerPl-sCnc 140 136-144 mmol/L LAB 2823-3(LOINC) Potassium SerPl-sCnc 4.8 3.7-5.1 mmol/L LAB 2075-0(LOINC) Chloride SerPl-sCnc 105 98-107 mmol/L LAB 2028-9(LOINC) CO2 SerPl-sCnc 26 22-30 mmo l/L LAB 41845-3(LOINC) Anion Gap SerPl-sCnc 9 8-15 mmol/L LAB 68707-3(LOINC) Calcium SerPl-mCnc 9.0 8.5-10.2 mg/dL LAB 60708-5(LOINC) Creatinine + eGFR Pnl SerPlBld 69 >=60 mL/min/1 .73m??? Result Comment: Estimated Gl omerular Filtration Rate (eGFR) is calculated using the 2020 CKD-EPI creatinine equation. This equation utilizes serum creatinine, sex, and age as parameters. The creatinine assay has traceable calibration to isotope dilution-mass spectrometry. Refer to KDIGO guidelines for clinical interpretation. In patients with unstable renal function, e.g. those with acute kidney injury, the eGFR may not accurately reflect actual GFR. Performed By: [facility] CLIA [id number] [address] [place] [address] [place] MAGNESIUM SERPL-MCNC Collected: 08/30/2024 9:16 AM S tatus: F Source: [facility] Comment: Specimen Type : BLOOD SPECIMEN Ordering Facility: [address] Address: [address] [place] [address] TYPE CODE TESTS RESULT OUT OF RANGE REFERENCE UNITS LAB 19295-4(INC) Magnesium SerPl-mCnc 2.0 1.7-2.3 mg/dL Performed By: [facility] CLIA [id number] [address] [place] [address] [place] COMPREHENSIVE METABOLIC PANEL Collected : 07/05/2024 11:29 PM Status: F Source: [facility] TYPE CODE TESTS RESULT OUT OF RANGE REFERENCE UNITS LAB 0321234 SODIUM 137 136-145 mmol/L LAB 3555829 POTASSIUM 4.6 3.5-5.1 mmol/L Result Comment: Plasma potas sium values may be up to 0.5 mmol/L lower than serum values. LAB 4249330 CHLORIDE 103 98-107 mmol/L LAB 4726814 CARBON DIOXIDE 25 22-29 mmol/L LAB [id number] ANION GAP (BRUNER, CALCULATED) 9 3-13 mmol/L LAB 6027346 UREA NITROGEN 18 8-21 mg/dL LAB 5799057 CREATININE 1.12 0.72-1.25 mg/dL LAB 0203902 GLUCOSE 202 High 74-100 mg/dL LAB 5048077 CALCIUM 9.1 8.4-10.2 mg/dL LAB 8782432 AST (SGOT) 25 <34 U/L LAB 5494155 ALT 21 <40 U/L LAB 6390752 ALKALINE PHOSPHATASE 68 40-150 U/L LAB 6376723 ALBUMIN 3.6 3.5-5.0 g/dL LAB 4319875 BILIRUBIN, TOTAL 0.8 <1.2 mg/dL LAB 7643065 TOTAL PROTEIN 6.8 6.4-8.3 g/dL LAB 1281957 GLOMERULAR FILTRATION RATE ML/MIN/1.73 SQ M.PREDICTED 81.5 >60.0 mL/min/1. 73m*2 Result Comment: Calculation based on the Chronic Kidney Disease Epidemiology Collaboration (CKD-EPI) equation refit without adjustment for race Performed By: [facility] or: CHARLENE BATRES ([id number]) [facility] ([facility]) [address] [place] [address] CBC WITH AUTO DIFFERENTIAL Collected: 0 07/05/2024 11:29 PM Status: F Source: [facility] TYPE CODE TESTS RESULT OUT OF RANGE REFERENCE UNITS LAB [id number] WBC 6.7 3.6-10.7 10*3/uL LAB 9108462 RBC 4.84 4.40-5.90 10*6/uL LAB 3828386 HEMOGLOBIN 13.2 13.0-18.0 g/dL LAB 5817355 HEMATOCRIT 40.6 40.0-52.0 % LAB 8755521 MCV 83.9 77.0-99.0 fL LAB 7568654 MCH 27.3 26.0-34.0 pg LAB 3496934 MCHC 32.5 30.5-36.0 % LAB 9739262 RDW 13.3 11.5-15.0 % LAB 8366961 PLATELET COUNT 199 140-440 10*3/uL LAB 2726198 MPV 10.7 9.0-12.7 fL LAB 254 NRBC 0.0 0.0-2.0 /100 WBCs LAB 6362777 NEUTROPHILS RELATIVE 71.7 38.0-82.0 % LAB 2733898 LYMPHOCYTES RELATIVE 14.5 Low 15.0-45.0 % LAB 2870532 MONOCYTES RELATIVE 10.4 5.0-13.0 % LAB 3160378 EOSINOPHILS RELATIVE 2.5 0.0-6.0 % LAB 0668855 BASOPHILS RELATIVE 0.3 0.0-2.0 % LAB 3164082 IMMATURE GRANS % 0.6 0.0-2.0 % LAB 8440850 NEUTROPHILS ABSOLUTE 4.8 1.8-7.5 10*3/uL LAB 8121048 LYMPHOCYTES ABSOLUTE 1.0 1.0-4.3 10*3/uL LAB 3064389 MONOCYTES ABSOLUTE 0.7 0.0-0.9 10*3/uL LAB 0863086 EOSINOPHILS ABSOLUTE 0.2 0.0-0.5 10*3/uL LAB 0564340 BASOPHILS ABSOLUTE 0.0 0.0-0.2 10*3/uL LAB 431083 IMMATURE GRANS ABSOLUTE 0.0 <0.1 10*3/uL Performed By: [facility] [employer] or: CHARLENE BATRES ([id number]) [facility] ([facility]) [address] [place] [address] ED PROVIDER NOTE Observed: 07/05/2024 9:34 PM Status: COMPLETED Source: [facility] EMERGENCY DEPARTMENT [facility] ER Pt Name: Ta Brantley Birthdate 1975 Date of evaluation: 07/05/2024 ED Provider: Brynn Kamara MD CHIEF COMPLAINT Chief Complaint Patient presents with Hypertension Pt has known HX of HTN and takes Amlodipine, Lisinopril, and Carvedilol. Took carvedilol and Lisinopril at 20:15 with no change. Home BP was 239/101, bp 182/ 93 while triaging. Pt endorses a OLMOS and dizziness. HISTORY OF PRESENT ILLNESS (Location/Symptom, Timing/Onset, Context/Setting, Quality, Duration, Modifying Factors, Severity) Note limiting factors. HPI Ta Brantley is a 49 y.o. male who presents to the emergency department for hypertension wound check. Patient states that he has been having issues with his blood pressure for the last couple days. States he has had a headache for the last 2 days. No dizziness although it was noted in the triage note. Denies any lightheadedness. No changes to his vision. No chest pain or shortness of breath. He does note that he is on amlodipine, lisinopril, carvedilol and is supposed to be taking clonidine but his pharmacy did not fill it the last time he went so he is been off of it for about a month. Today prior to arrival he took his blood pressure was 239/101 which is why he came to the emergency department. He also notes that he has a wound to the left great toe and he is concerned that it might be infected and was hoping to get it evaluated as he is have required amputation in the past secondary to toe infections. He does have neuropathy and is unable to feel it. Denies any fevers or chills. No trauma or injuries. Nursing Notes were reviewed. REVIEW OF SYSTEMS Review of Systems Pertinent positives and negatives per HPI PAST MEDICAL HISTORY Past Medical History: Diagnosis Date CAD (coronary artery disease) Depression Diabetes mellitus (HCC) Hypertension Neuropathy SURGICAL HISTORY Past Surgical History: Procedure Laterality Date CORONARY ANGIOPLASTY WITH STENT PLACEMENT Bilateral LEG AMPUTATION THROUGH LOWER TIBIA AND FIBULA Right 07/18/2021 CURRENT MEDICATIONS Previous Medications AMLODIPINE (NORVASC) 5 MG TABLET Take 5 mg by mouth daily. ASPIRIN 81 MG EC TABLET Take 81 mg by mouth daily. ATORVASTATIN (LIPITOR) 40 MG TABLET Take 40 mg by mouth Nightly. BUPROPION XL (WELLBUTRIN XL) 300 MG 24 HR TABLET CARVEDILOL (COREG) 12.5 MG TABLET TAKE 1 TABLET BY MOUTH TWICE DAILY WITH A MEAL/FOOD CLONIDINE (CATAPRES) 0.1 MG TABLET Take 0.1 mg by mouth 3 times daily. CONTINUOUS BLOOD GLUC SENSOR (FREESTYLE TIM 2 SENSOR) MISC FERROUS SULFATE 325 (65 FE) MG TABLET Take 325 mg by mouth. HYDRALAZINE (APRESOLINE) 25 MG TABLET Take 1 tablet (25 mg) by mouth 3 times daily for 8 days. HYDROXYZINE HCL (ATARAX) 25 MG TABLET Take 25 mg by mouth 3 times daily as needed. MAGNESIUM GLUCONATE (MAGONATE) 500 MG TABLET Take by mouth. METFORMIN (GLUCOPHAGE) 1000 MG TABLET Take 1,000 mg by mouth 2 times daily. METOCLOPRAMIDE (REGLAN) 5 MG TABLET TAKE 1 TABLET BY MOUTH BEFORE MEALS AND AT BEDTIME. ROPINIROLE (REQUIP) 1 MG TABLET Take 1 mg by mouth in the morning and 1 mg in the evening. ALLERGIES Morphine FAMILY HISTORY Family History Problem Relation Name Age of Onset Heart attack Mother Stroke Mother Diabetes Mother Dementia Mother Coronary artery disease Father Heart failure Father Diabetes Father Cancer Paternal Grandmother Cancer Paternal Grandfather SOCIAL HISTORY Social History Socioeconomic History Marital status: Tobacco Use Smoking status: Former Types: Cigarettes Passive exposure: Never Smokeless tobacco: Never Vaping Use Vaping status: Never Used Substance and Sexual Activity Alcohol use: Yes Comment: socially Drug use: Never Social Drivers of Health Intimate Partner Violence: Not At Risk (11/20/2022) Humiliation, Afraid, Rape, and Kick questionnaire Fear of Current or Ex-Partner: No Emotionally Abused: No Physically Abused: No Sexually Abused: No SCREENINGS PHYSICAL EXAM ED Triage Vitals [07/05/242135] Temp Heart Rate Resp BP 36.9 ?C (98.5 ?F) 77 18 (!) 182/93 SpO2 Temp Source Heart Rate Source Patient Position 97 % Temporal Monitor -- BP Location FiO2 (%) -- -- Physical Exam Well-appearing male in no acute distress. Vital signs reviewed and notable for hypertension. I did repeat his blood pressure in the room was 156/82. Head is normocephalic and atraumatic. Pupils are equal and reactive to light. Regular rate and rhythm. 2+ radial pulses bilaterally. No increased work of breathing. Speaking in full sentences. Patient does havea small ulceration to the medial aspect of his left great toe. There is a little bit surrounding erythema with no necrosis. He has full range of motion of the toe. Some mild warmth to palpation. Nontender. No discharge. Alert and oriented x 3. No focal neurologic deficits. Ambulates without difficulty. NIH of 0. DIAGNOSTIC RESULTS RADIOLOGY (Per Emergency Physician): Interpretation per the Radiologist below, if available at the time of this note: No orders to display LABS: Labs Reviewed CBC WITH AUTO DIFFERENTIAL - Abnormal Result Value Auto WBC 6.7 RBC 4.84 Hemoglobin 13.2 Hematocrit 40.6 MCV 83.9 MCH 27.3 MCHC 32.5 RDW 13.3 Platelets 199 MPV 10.7 nRBC 0.0 Neutrophils Relative 71.7 Lymphocytes Relative 14.5 (*) Monocytes Relative 10.4 Eosinophils Relative 2.5 Basophils Relative 0.3 Immature Grans % 0.6 Neutrophils Absolute 4.8 Lymphocytes Absolute 1.0 Monocytes Absolute 0.7 Eosinophils Absolute 0.2 Basophils Absolute 0.0 Immature Grans Absolute 0.0 COMPREHENSIVE METABOLIC PANEL - Abnormal SODIUM 137 POTASSIUM 4.6 CHLORIDE 103 CARBON DIOXIDE 25 ANION GAP 9 UREA NITROGEN 18 CREATININE 1.12 GLUCOSE 202 (*) CALCIUM 9.1 AST (SGOT) 25 ALT 21 ALKALINE PHOSPHATASE 68 ALBUMIN 3.6 BILIRUBIN, TOTAL 0.8 TOTAL PROTEIN 6.8 eGFR 81.5 EMERGENCY DEPARTMENT COURSE and DIFFERENTIAL DIAGNOSIS/MDM: Vitals: Vitals: 07/05/242135 BP: (!) 182/93 Pulse: 77 Resp: 18 Temp: 36.9 ?C (98.5 ?F) TempSrc: Temporal SpO2: 97% Medications sodium chloride 0.9 % bolus 1,000 mL (1,000 mL IntraVENous New Bag 07/05/242330) sulfamethoxazole-trimethoprim (Bactrim DS) 800-160 MG per tablet 1 tablet (1 tablet Oral Given 07/05/242329) ketorolac (Toradol) injection 30 mg (30 mg IntraVENous Given 07/05/242326) dexAMETHasone (PF) (Decadron) injection 4 mg (4 mg IntraVENous Given 07/05/242325) Medical Decision Making Problems Addressed: Abscess or cellulitis of toe, left: complicated acute illness or injury Hypertension, unspecified type: complicated acute illness or injury Nonintractable headache, unspecified chronicity pattern, unspecified headache type: complicated acute illness or injury Amount and/or Complexity of Data Reviewed Labs: ordered. Risk Prescription drug management. 49-year-old male presented emergency room today for hypertension and a wound check. He is afebrile hemodynamically stable. Has been having a headache for the last 2 days and was concerned that it may be associated with his blood pressure. His blood pressure is mildly high upon arrival to the emergency department but is downtrending and when I repeated in the room and come down to 150 systolic. Does not have any signs or symptoms concerning for hypertensive emergency. He did request labs to be done as he wanted to make sure he did not have significant infection from his toe. He does appear to have a cellulitis to the left great toe so I will start him on oral antibiotics and give him his first dose here. His labs are unremarkable. No significant leukocytosis. No end-stage organ damage. Patient given a migraine cocktail as well with Toradol, steroids and fluids here in the emergency department for his headache that he has been experiencing as he does have photophobia with this headache. Patient's headache completely resolved. He is agreeable to discharge. Feeling much improved. Discharged in stable condition. Differentials considered: Hypertensive emergency however patient has no end organ damage or any significant symptoms, subarachnoid hemorrhage however this is not the worst headache of his life and not acute in onset or lightening headache, migraine headache, cellulitis, abscess, osteomyelitis of his toe, gout or septic joint however less likely as it does not involve the joint space. Diagnostic tests considered but not performed: CT scan of his head however the patient has no neurologic deficits. Does not have any acute onset headache or lightening headache. External records reviewed: Diagnostics interpreted by me: Discussions with other clinicians: Chronic conditions impacting care: hypertension Social determinants of health affecting care: ED Medications managed: Medications sodium chloride 0.9 % bolus 1,000 mL (1,000 mL IntraVENous New Bag 07/05/24 2331) sulfamethoxazole-trimethoprim (Bactrim DS) 800-160 MG per tablet 1 tablet (1 tablet Oral Given 07/05/24 2330) ketorolac (Toradol) injection 30 mg (30 mg IntraVENous Given 07/05/247) dexAMETHasone (PF) (Decadron) injection 4 mg (4 mg IntraVENous Given 07/05/246) Prescription drugs considered: Nia Kamara MD am the case reviewer of record. FINAL IMPRESSION No diagnosis found. DISPOSITION PATIENT REFERRED TO: No follow-up provider specified. DISCHARGE MEDICATIONS: New Prescriptions No medications on file (Comment: Please note this report has been produced using speech recognition software and may contain errors related to that system including errors in grammar, punctuation, and spelling, as well as words and phrases that may be inappropriate. If there are any questions or concerns please feel free to contact the dictating provider for clarification.) Brynn Kamara MD (electronically signed) Emergency Medicine Provider Brynn Kamara MD 07/06/24 0105 36 Observed: 05/18/2024 3:35 PM Status: COMPLETED Source: [facility] Lvm for Pt with d/t/l for OV to discuss IPP with Dr. Snell on 06/01/24 at 3:00pm in [place]. 36 Observed: 05/18/2024 2:43 PM Status: COMPLETED Source: [facility] Yes, he should make an appoi ntment to discuss. 36 Observed: 05/18/2024 2:33 PM Status: COMPLETED Source: [facility] Looks like Pt was last seen 12/18 with Paresh. Does Pt need scheduled for OV to discuss prior to scheduling surgery? Please advise. 36 Observed: 05/18/2024 12:22 PM Status: COMPLETED Source: [facility] Name of Caller: Ta Contact Phone Number: [phone] Reason for Appointment: Pt would like to move forward with surgery for penile implant as discussed with Please call to schedule Office Name: [facility] Medication Refills need, if any: n/a Medication Name: n/a NURSING NOTE Observed: 05/16/2024 3:02 PM Status: COMPLETED Source: [facility] Discharge instructions given to pt. Pt verbalizes understanding and has no questions at this time. DISCHARGE SUMMARY Observed: 05/16/2024 2:39 PM Status: COMPLETED Source: [facility] Discharge Summary Ta Weems Ridisaias : 1975 ADMIT DATE: 05/14/2024 DISCHARGE DATE: 05/16/2024 PRIMARY CARE PHYSICIAN: RORY GREENFIELD MD VISIT STATUS: observation CODE STATUS: Full Code DISCHARGE DIAGNOSES: DM-labile Nausea and vomiting and diarrhea Probable resolving gastroenteritis HTN CAD Neuropathy Hyperlipidemia Depression Class 3 obesity HOSPITAL COURSE: 49 year old presented with abdominal painn, n/v and hypoglycemia. He was admitted, given IVF and Endocrinology was consulted. Due to his pump not having batteries currently, he was given Lantus and Lispro subcutaneous insulin. The patient' symptoms resolved and he tolerated his diet. He was extremely anxious to go home and after discussion with Endocrinology via secure chat, it was determined he could be discharged with his pump and supplies from home and follow up closely as an outpatient. SIGNIFICANT DIAGNOSTIC STUDIES: CXR CONSULTANTS: Endocrinology RECOMMENDED NEXT STEPS: Continue with insulin pump and follow up with Endocrinology and PCP as an outpatient. Physical Exam: Vitals: BP 157/87 (BP Location: Right arm, Patient Position: Lying) Pulse 63 Temp 36.2 ?C (97.2 ?F) (Temporal) Resp 18 Ht 6' 4 (1.93 m) Wt (!) 315 lb (143 kg) SpO2 98% BMI 38.34 kg/m? Pulse Ox: SpO2 Av.5 % Min: 95 % Max: 98 % General appearance: alert, cooperative and no distress Mental Status: oriented to person, place and time and normal affect Lungs: clear to auscultation bilaterally, normal effort Heart: regular rate and rhythm, + murmur Abdomen: soft, nontender, nondistended, bowel sounds present, no masses Extremities: no edema or redness Skin: no gross lesions, rashes LABS: CBC: Recent Labs 05/14/24211305/16/24 0148 WBC 6.8 4.1 RBC 4.65 4.29* HGB 13.6 13.0 11.9* HCT 40.1 37.8* MCV 86.2 88.1 RDW 13.9 14.1 PLT 212 182 BMP: Recent Labs 05/14/24211305/16/24 0148 NA 143 138 K 3.5 4.8 CL 114* 111* CO2 21* 22 BUN 28* 20 CREATININE 1.05 0.93 GLUCOSE 52* 115* CALCIUM 8.4 8.2* ANIONGAP 8 5 LIVER PROFILE: Recent Labs 05/14/24211305/16/24 0148 AST 40* 46* ALT 33 105* BILITOT 0.6 0.5 ALKPHOS 56 80 PROT 6.7 5.7* DISCHARGE MEDICATIONS: Medication List CONTINUE taking these medications amLODIPine 5 MG tablet Commonly known as: Norvasc aspirin 81 MG EC tablet atorvastatin 40 MG tablet Commonly known as: Lipitor buPROPion XL 300 MG 24 hr tablet Commonly known as: Wellbutrin XL carvedilol 12.5 MG tablet Commonly known as: Coreg cloNIDine 0.1 MG tablet Commonly known as: Catapres dicyclomine 20 MG tablet Commonly known as: Bentyl Take 1 tablet (20 mg) by mouth 2 times daily for 10 days. ferrous sulfate 325 (65 Fe) MG tablet FreeStyle Tim 2 Sensor misc hydrALAZINE 25 MG tablet Commonly known as: Apresoline Take 1 tablet (25 mg) by mouth 3 times daily for 8 days. hydrOXYzine HCl 25 MG tablet Commonly known as: Atarax magnesium gluconate 500 MG tablet Commonly known as: Magonate metFORMIN 1000 MG tablet Commonly known as: Glucophage metoclopramide 5 MG tablet Commonly known as: Reglan ondansetron ODT 4 MG disintegrating tablet Commonly known as: Zofran-ODT Take 1 tablet (4 mg) by mouth every 8 hours as needed for nausea or vomiting for up to 7 days. rOPINIRole 1 MG tablet Commonly known as: Requip STOP taking these medications insulin lispro 100 UNIT/ML injection Commonly known as: HumaLOG DIET: Adult diet Regular; 4 carb choices (60 gm/meal) ACTIVITY: No heavy lifting. up with assist COMPLEXITY OF FOLLOW UP: [] Moderate Complexity: follow up within 7-14 calendar days (05800) [] Severe Complexity: follow up within 7 calendar days (24875) FOLLOW UP TESTING, PENDING RESULTS OR REFERRALS AT TRANSITIONAL CARE VISIT: [] Yes [] No PENDING STUDIES: No DISPOSITION: Home FACILITY/HOME CARE AGENCY NAME: Follow up with Rory Greenfield MD [address] [facility] [phone] Schedule an appointment as soon as possible for a visit in 1 week(s) Patrick Pérez MD [address] [facility] [phone] Schedule an appointment as soon as possible for a visit in 2 week(s) INSTRUCTIONS TO MA/SW: Please call patient on day after discharge (must document patient contacted within 2 business days of discharge). FOLLOW UP QUESTIONS FOR MA/SW: 1. Did you get medications filled and taking them as instructed from discharge? 2. Are you following your discharge instructions from your hospital stay? 3. Please confirm patient is scheduled for a follow up appointment within the above time frame. DISCHARGE TIME: > 35 minutes SIGNED: Valerie Escobar MD 05/16/2024, 2:39 PM PROGRESS NOTE Observed: 05/16/2024 12:45 PM Status: COMPLETED Source: [facility] Seen and examined. Doing favian y well today. Tolerating diet. Sitting up in chair. Wants to go home. D/w pt and Iqra RN, separately. 1: 30 PM: D/w Endocrinology and Iqra via secure chat. Ok for patient to go home if he has all pump supplies which he confirmed. Will place discharge orders. PROGRESS NOTE Observed: 05/16/2024 9:41 AM Status: COMPLETED Source: [facility] Nutrition rescreen completed . Patient referred to the Dietitian for N/V/D > 3 days prior to admittance. 30 Observed: 05/16/2024 6:53 AM Status: COMPLETED Source: [facility] Problem: Pain - Adult Goal: Verbalizes/displays adequate comfort level or baseline comfort level Outcome: ProgressingProblem: Chronic Conditions and Co-morbidities Goal: Patient's chronic conditions and co-morbidity symptoms are monitored and maintained or improved Outcome: Progressing CBC WITH AUTO DIFFERENTIAL Collected: 05/16/2024 1:48 AM Status: F Source: [facility] TYPE CODE TESTS RESULT OUT OF RANGE REFERENCE UNITS LAB [id number] WBC 4.1 3.6-10.7 10*3/uL LAB 0989561 RBC 4.29 Low 4.40-5.90 10*6/uL LAB [id number] HEMOGLOBIN 11.9 Low 13.0-18.0 g/dL LAB 3080868 HEMATOCRIT 37.8 Low 40.0-52.0 % LAB 4874560 MCV 88.1 77.0-99.0 fL LAB 8376716 MCH 27.7 26.0-34.0 pg LAB 3871377 MCHC 31.5 30.5-36.0 % LAB 5495254 RDW 14.1 11.5-15.0 % LAB 4689621 PLATELET COUNT 182 140-440 10*3/uL LAB 7667941 MPV 10.9 9.0-12.7 fL LAB 254 NRBC 0.0 0.0-2.0 /100 WBCs LAB 2924941 NEUTROPHILS RELATIVE 52.5 38.0-82.0 % LAB 1046013 LYMPHOCYTES RELATIVE 29.7 15.0-45.0 % LAB 1766580 MONOCYTES RELATIVE 13.5 High 5.0-13.0 % LAB 3178253 EOSINOPHILS RELATIVE 3.9 0.0-6.0 % LAB 9280744 BASOPHILS RELATIVE 0.2 0.0-2.0 % LAB 5626313 IMMATURE GRANS % 0.2 0.0-2.0 % LAB [id number] NEUTROPHILS ABSOLUTE 2.2 1.8-7.5 10*3/uL LAB 7649582 LYMPHOCYTES ABSOLUTE 1.2 1.0-4.3 10*3/uL LAB 5224954 MONOCYTES ABSOLUTE 0.6 0.0-0.9 10*3/uL LAB 7021313 EOSINOPHILS ABSOLUTE 0.2 0.0-0.5 10*3/uL LAB 9041748 BASOPHILS ABSOLUTE 0.0 0.0-0.2 10*3/uL LAB 991408 IMMATURE GRANS ABSOLUTE 0.0 <0.1 10*3/uL Performed By: [employer] or: CHARLENE BATRES ([id number]) [facility] ([facility]) [address] [place] [address] COMPREHENSIVE METABOLIC PANEL Collected: 05/16/2024 1 :48 AM Status: F Source: [facility] TYPE CODE TESTS RESULT OUT OF RANGE REFERENCE UNITS LAB 2576504 SODIUM 138 136-145 mmol/L LAB 9548785 POTASSIUM 4.8 3.5-5.1 mmol/L Result Comment: Plasma potas sium values may be up to 0.5 mmol/L lower than serum values. LAB 8722991 CHLORIDE 111 High 98-107 mmol/L LAB 5725599 CARBON DIOXIDE 22 22-29 mmol/L LAB [id number] ANION GAP (BRUNER, CALCULATED) 5 3-13 mmol/L LAB 5217212 UREA NITROGEN 20 8-21 mg/dL LAB 4478458 CREATININE 0.93 0.72-1.25 mg/dL LAB 1402884 GLUCOSE 115 High 74-100 mg/dL LAB 7403672 CALCIUM 8.2 Low 8.4-10.2 mg/dL LAB 4916772 AST (SGOT) 46 High <34 U/L LAB 0559544 ALT 105 High <40 U/L LAB 6540227 ALKALINE PHOSPHATASE 80 40-150 U/L LAB 2314548 ALBUMIN 3.0 Low 3.5-5.0 g/dL LAB 7689896 BILIRUBIN, TOTAL 0.5 <1.2 mg/dL LAB 2063947 TOTAL PROTEIN 5.7 Low 6.4-8.3 g/dL LAB 8673531 GLOMERULAR FILTRATION RATE ML/MIN/1.73 SQ M.PREDICTED >90.0 >60.0 mL/min/1. 73m*2 Result Comment: Calculation based on the Chronic Kidney Disease Epidemiology Collaboration (CKD-EPI) equation refit without adjustment for race Performed By: [employer] or: CHARLENE BATRES ([id number]) [facility] [address] PROGRESS NOTE Observed: 05/15/2024 10:58 AM Status: COMPLETED Source: [facility] Department of Internal Medic ine Division of Endocrinology, Diabetes, & Metabolism Endocrinology Note Patient Name: Ta Brantley : 1975 AGE: 49 y.o. Room/Bed: [facility]/[address] Admission Date: 05/14/2024 Visit Date: 05/15/2024 Reason for Endocrine Consult: DM Provider/Team Requesting Consult: Luz PCP: RORY GREENFIELD MD Outpt Head Of Mobile: No ASSESSMENT: DM Uncontrolled PLAN: Start Lantus 60 units/day Start Lispro 15 AC-TID + High dose scale. Check A1c Endocrine team to see formally on Friday. ICU goal <180 GMF goal <150 POCT BG ACHS Hypoglycemia management per protocol Carb controlled diet ANTICIPATED ENDOCRINE HOME GOING RECOMMENDATIONS: Optimized for Discharge from Endocrine standpoint: N/A Home Going Endocrine Rx Recommendations-- Insulin pump Outpt Follow Up-- TBD SUBJECTIVE/HPI: CHIEF COMPLAINT: Chief Complaint Patient presents with ? Hypoglycemia Insulin pump settings Insulin: Humalog U200 Basal: 1.5 units/h Carb ratio: 1:8 ISF: 1:50 @ 120 Type of DM: TBD Onset of DM: TBD Home DM Medication Regimen: as above DM control (last A1c/glucose data): Glucose Date/Time Value Ref Range Status 05/15/2024 08:11 AM 280 (H) 70 - 100 mg/dL Final 05/15/2024 05:27 AM 334 (H) 70 - 100 mg/dL Final 05/15/2024 12:03 AM 295 (H) 70 - 100 mg/dL Final 05/14/2024 09:03 PM 102 (H) 70 - 100 mg/dL Final 11/21/2022 01:18 PM 269 (H) 70 - 100 mg/dL Final 11/21/2022 11:18 AM 263 (H) 70 - 100 mg/dL Final Review of Systems ROS negative except for those mentioned in HPI. OBJECTIVE: Vitals: 05/15/24 0001 05/15/24 0002 05/15/24 0259 05/15/24 0808 BP: (!) 191/90 155/73 156/85 BP Location: Left arm Right arm Patient Position: Sitting Lying Pulse: 95 77 73 73 Resp: 23 18 Temp: 36.2 ?C (97.1 ?F) 36.2 ?C (97.2 ?F) 36.3 ?C (97.3 ?F) TempSrc: Temporal Temporal Temporal SpO2: 99% 99% Weight: Height: Physical Exam 24 hour intake/output: Intake/Output Summary (Last 24 hours) at 05/15/2024 1058 Last data filed at 05/14/2024 2317 Gross per 24 hour Intake 1000 ml Output -- Net 1000 ml Diet: Adult diet Regular; 4 carb choices (60 gm/meal) Medications (as per EMR): HomeMeds: Current Outpatient Medications Medication Instructions ? amLODIPine (NORVASC) 5 mg, Daily ? aspirin 81 mg, Daily ? atorvastatin (LIPITOR) 40 mg, Nightly ? buPROPion XL (Wellbutrin XL) 300 MG 24 hr tablet No dose, route, or frequency recorded. ? carvedilol (Coreg) 12.5 MG tablet TAKE 1 TABLET BY MOUTH TWICE DAILY WITH A MEAL/FOOD ? cloNIDine (CATAPRES) 0.1 mg, 3 times daily ? Continuous Blood Gluc Sensor (FreeStyle Tim 2 Sensor) misc No dose, route, or frequency recorded. ? dicyclomine (BENTYL) 20 mg, Oral, 2 times daily ? ferrous sulfate 325 mg ? hydrALAZINE (APRESOLINE) 25 mg, Oral, 3 times daily ? hydrOXYzine HCl (ATARAX) 25 mg, Oral, 3 times daily PRN ? insulin lispro (HUMALOG) 150 Units, Daily ? magnesium gluconate (Magonate) 500 MG tablet Take by mouth. ? metFORMIN (GLUCOPHAGE) 1,000 mg, 2 times daily ? metoclopramide (Reglan) 5 MG tablet TAKE 1 TABLET BY MOUTH BEFORE MEALS AND AT BEDTIME. ? ondansetron ODT (ZOFRAN-ODT) 4 mg, Oral, Every 8 hours PRN ? rOPINIRole (REQUIP) 1 mg, 2 time daily Scheduled Meds: amLODIPine, 5 mg, Oral, Daily aspirin, 81 mg, Oral, Daily atorvastatin, 40 mg, Oral, Nightly buPROPion XL, 300 mg, Oral, Daily carvedilol, 12.5 mg, Oral, BID WC cloNIDine, 0.1 mg, Oral, TID enoxaparin, 40 mg, SubCUTAneous, Daily hydrALAZINE, 25 mg, Oral, TID insulin glargine, 60 Units, SubCUTAneous, q AM insulin lispro, 0-18 Units, SubCUTAneous, 4x daily AC & HS And insulin lispro, 0-18 Units, SubCUTAneous, Nightly insulin lispro, 15 Units, SubCUTAneous, TID WC metoclopramide, 5 mg, Oral, 4x daily AC & HS rOPINIRole, 1 mg, Oral, TID Continuous Infusions: PRN Meds:PRN medications: acetaminophen OR acetaminophen, dextrose, dextrose, glucagon (rDNA), glucose, HYDROmorphone, hydrOXYzine HCl, naloxone, ondansetron ODT OR ondansetron, polyethylene glycol (PEG) 3350 Diagnostic Workup: I reviewed pertinent Laboratory results, Radiographic results, and Other Clinical Notes at the time of today's encounter. Labs: No components found for: LABA1C No components found for: EAG Lab Results Component Value Date NA 143 05/14/2024 K 3.5 05/14/2024 CL 114 (H) 05/14/2024 CO2 21 (L) 05/14/2024 BUN 28 (H) 05/14/2024 CREATININE 1.05 05/14/2024 GLUCOSE 52 (L) 05/14/2024 CALCIUM 8.4 05/14/2024 No results found for: CHLPL, CHOL No results found for: TRIG No results found for: HDL No results found for: LDLCALC No results found for: VLDL No results found for: CHOLHDLRATIO No results found for: HYQK36VEE No results found for: TSH, H0COQAM, N1YBGVF, THYROIDAB Radiology reportsas per the Radiologist Radiology: POCT glucose meter Result Date: 05/15/2024 Performed by: [facility], [address] [place] [id number] CLIA ID: [id number] POCT glucose meter Result Date: 05/15/2024 [facility]formed by: [facility], [address] [facility] [address] CLIA ID: [id number] POCT glucose meter Result Date: 05/15/2024 Performed by: [facility], [address] [place] [address] CLIA ID: [id number] ECG 12 lead Sinus rhythm Inferior infarct, old Electronically Signed On 05-14-2024 23:29:14 EST by Niko Spicer POCT glucose meter Result Date: 05/14/2024 Performed by: [facility], [address] [place] [id number] CLIA ID: [id number] History/Other: Past Medical History: Past Medical History: Diagnosis Date ? CAD (coronary artery disease) ? Depression ? Diabetes mellitus (HCC) ? Hypertension ? Neuropathy Past Surgical History: Past Surgical History: Procedure Laterality Date ? CORONARY ANGIOPLASTY WITH STENT PLACEMENT Bilateral ? LEG AMPUTATION THROUGH LOWER TIBIA AND FIBULA Right 07/18/2021 Allergy(ies): Allergies Allergen Reactions ? Morphine Chest pain Family History: Family History Problem Relation Name Age of Onset ? Heart attack Mother ? Stroke Mother ? Diabetes Mother ? Dementia Mother ? Coronary artery disease Father ? Heart failure Father ? Diabetes Father ? Cancer Paternal Grandmother ? Cancer Paternal Grandfather Social History: Social History Tobacco Use ? Smoking status: Former Types: Cigarettes Passive exposure: Never ? Smokeless tobacco: Never Vaping Use ? Vaping status: Never Used Substance Use Topics ? Alcohol use: Yes Comment: socially ? Drug use: Never Portions of the information within this encounter were entered using an electronic dictation system. Best attempts were made to edit/proofread the information prior to note completion. Despite the review of information, some errors may remain. If there are questions related to the information contained within the note please contact the signing physician directly. I spent 30 minutes with the pt which involved coordination of care, medical evaluation, review of records, and/or counseling of the pt regarding his/her condition/disease state/prognosis on the date of this note. RESS NOTE Observed: 05/15/2024 10:17 AM Status: COMPLETED Source: [facility] Hospitalist Progress Note 05/15/2024 Subjective: Admit Date: 05/14/2024 PCP: RORY GREENFIELD MD Room#: -[phone] A Interval History: Please also see H&P by Dr Cárdenas done earlier today. Weak but feels better overall. Diarrhea and pain improved. No cp, sob, cough, n/v, f/c. Tolerating diet. Case and plan discussed with patient and Cheryl RN, and Endocrinology separately via secure chat. All questions answered. Adult diet Regular 24HR INTAKE/OUTPUT: Intake/Output Summary (Last 24 hours) at 05/15/2024 1017 Last data filed at 05/14/2024 2317 Gross per 24 hour Intake 1000 ml Output -- Net 1000 ml Past Medical History: Past Medical History: Diagnosis Date CAD (coronary artery disease) Depression Diabetes mellitus (HCC) Hypertension Neuropathy LABS: CBC: Recent Labs 05/14/242113 WBC 6.8 RBC 4.65 HGB 13.6 13.0 HCT 40.1 MCV 86.2 RDW 13.9 PLT 212 BMP: Recent Labs 05/12/24 1310 05/14/242113 NA 139 143 K 4.8 3.5 CL 114* 114* CO2 17* 21* BUN 28* 28* CREATININE 1.07 1.05 GLUCOSE 158* 52* CALCIUM 7.7* 8.4 ANIONGAP 8 8 LIVER PROFILE: Recent Labs 05/14/242113 AST 40* ALT 33 BILITOT 0.6 ALKPHOS 56 PROT 6.7 PT/INR: No results for input(s): PROTIME, INR in the last 72 hours. CARDIAC ENZYMES: No results for input(s): TROPONINI in the last 72 hours. Procalcitonin: No results found for: PROCAL COVID-19 PCR: No results for input(s): COVID19 in the last 72 hours. Objective: Vitals: BP 156/85 (BP Location: Right arm, Patient Position: Lying) Pulse 73 Temp 36.3 ?C (97.3 ?F) (Temporal) Resp 18 Ht 6' 4 (1.93 m) Wt (!) 315 lb (143 kg) SpO2 99% BMI 38.34 kg/m? Pulse Ox: SpO2 Av.8 % Min: 97 % Max: 100 % Supplemental O2: Physical Exam Vitals and nursing note reviewed. Constitutional: General: He is not in acute distress. Appearance: He is obese. HENT: Head: Normocephalic and atraumatic. Mouth/Throat: Mouth: Mucous membranes are dry. Eyes: Extraocular Movements: Extraocular movements intact. Conjunctiva/sclera: Conjunctivae normal. Pupils: Pupils are equal, round, and reactive to light. Cardiovascular: Rate and Rhythm: Normal rate and regular rhythm. Pulses: Normal pulses. Heart sounds: Murmur heard. Pulmonary: Effort: Pulmonary effort is normal. Breath sounds: Normal breath sounds. Abdominal: General: Bowel sounds are normal. There is no distension. Palpations: Abdomen is soft. Tenderness: There is abdominal tenderness. There is no guarding or rebound. Musculoskeletal: General: Normal range of motion. Cervical back: Neck supple. Comments: BKA Skin: General: Skin is warm. Capillary Refill: Capillary refill takes less than 2 seconds. Neurological: General: No focal deficit present. Mental Status: He is alert and oriented to person, place, and time. Mental status is at baseline. Psychiatric: Mood and Affect: Mood normal. Medications: Scheduled PRN amLODIPine, 5 mg, Oral, Daily aspirin, 81 mg, Oral, Daily atorvastatin, 40 mg, Oral, Nightly buPROPion XL, 300 mg, Oral, Daily carvedilol, 12.5 mg, Oral, BID WC cloNIDine, 0.1 mg, Oral, TID enoxaparin, 40 mg, SubCUTAneous, Daily hydrALAZINE, 25 mg, Oral, TID insulin glargine, 60 Units, SubCUTAneous, q AM insulin lispro, 0-18 Units, SubCUTAneous, 4x daily AC & HS And insulin lispro, 0-18 Units, SubCUTAneous, Nightly insulin lispro, 15 Units, SubCUTAneous, TID WC metoclopramide, 5 mg, Oral, 4x daily AC & HS rOPINIRole, 1 mg, Oral, TID PRN medications: acetaminophen OR acetaminophen, dextrose, dextrose, glucagon (rDNA), glucose, HYDROmorphone, hydrOXYzine HCl, naloxone, ondansetron ODT OR ondansetron, polyethylene glycol (PEG) 3350 Continuous Assessment DM-labile Nausea and vomiting and diarrhea HTN CAD Neuropathy Hyperlipidemia Depression Class 3 obesity Plan Adjust insulin, POCT, SS insulin, IVF, Endocrinology evaluating, increase activity as able, follow up labs, discharge planning, see orders. - am labs, replace lytes prn - PT/OT/CM/SW - delirium precautions: increase activity - DVT prophylaxis: enoxaparin and encourage ambulation Advance Directive: Full Code Anticipated Discharge - Date - 05/17 - Location - Home - Pending the following - clinical improvement, completion of work up and when OK with Endocrinology Total time spent (which include face to face and non face to face encounters) : 42 minutes Toxic drug monitoring/narrow therapeutic index drug monitoring : # Drug name : SS insulin and lovenox # Route administered : subcutaneous and subcutaneous # Method of monitoring : ac/hs blood glucose/daily BMP/hypoglycemia protocol and daily CBC Extended Emergency Contact Information Primary Emergency Contact: Maycol Hernandez Mobile Relation: Other Secondary Emergency Contact: Dayami Brantley Relation: Spouse Valerie Escobar MD Division of Hospitalist Medicine Acute care [facility] COMPLETE URINALYSIS Collected: 05/15/2024 5:[address] atus: F Source: [facility] TYPE CODE TESTS RESULT OUT OF RANGE REFERENCE UNITS LAB 1955474 COLOR OF URINE Yellow Lt. Yellow LAB [id number] CLARITY OF URINE Clear Clear LAB 2398510 PH OF URINE 6.0 5.0-8.0 pH LAB [id number] LEUKOCYTE ESTERASE PRESENCE IN URINE BY TEST STRIP Negative Negative Allie/uL LAB 3490140 NITRITE PRESENCE IN URINE Negative Negative LAB 1359656 PROTEIN (MG/DL) IN URINE BY TEST STRIP 50 Abnormal Negative mg/dL LAB [id number] GLUCOSE (MG/DL) IN URINE >1,000 Abnormal Normal (<70) mg/dL LAB [id number] BILIRUBIN, TOTAL PRESENCE IN URINE Negative Negative mg/dL LAB 548 KETONES (MG/DL) IN URINE Negative Negative mg/dL LAB 19 UROBILINOGEN (MG/DL) IN URINE 6 Abnormal Normal (0-1) mg/dL LAB 549 HEMOGLOBIN PRESENCE IN URINE 0.06 Abnormal Negative mg/dL LAB [id number] RBC (#/HPF) IN URINE SEDIMENT 6-10 Abnormal 0-2 /HPF LAB [id number] WBC (LEUKOCYTE) (#/HPF) IN URINE SEDIMENT 0-2 0-5 /HPF LAB [id number] SQUAMOUS EPITHELIAL CELLS (#/HPF) IN URINE SEDIMENT Negative 3-5 /HPF LAB 4605900 BACTERIA (#/HPF) IN URINE Negative Negative /HPF LAB 194 MUCUS (#/LPF) IN URINE SEDIMENT Few Negative /LPF LAB 70 HYALINE CASTS (#/LPF) IN URINE SEDIMENT BY MICROSCOPY 6-10 Abnormal Negative /LPF LAB 1199 SPECIFIC GRAVITY OF URINE (NUMERIC) 1.025 1.005-1.030 Performed By: Medical Direct or: CHARLENE BATRES ([id number]) [facility] ([facility]) [address] HIGH SENSITIVITY TROPONIN, SERIAL, THIRD TEST Collected: 05/15/2024 2:08 AM Status: F Source: [facility] TYPE CODE TESTS RESULT OUT OF RANGE REFERENCE UNITS LAB 826 TROPONIN HS, SERIAL REFLEX, TEST THREE 9 <=35 ng/L Performed By: Medical Direct or: CHARLENE BATRES ([id number]) [facility] ([facility]) [address] [place] [address] HISTORY AND PHYSICAL NOTE Observed: 04/28 2:06 AM Status: COMPLETED Source: [facility] History and Physical [facility] Ta Brantley : 1975 AGE 49 y.o. YEARS Note Date 05/15/2024 Primary Care Physician:RORY GREENFIELD MD Current Providers as of 05/14/2024 PCP: Rory Greenfield MD Care Team Provider: Froy Mensah MD Care Team Provider: Orville Snell MD Referring Provider: not found, starting on FriMay 14, 2024 12:00 AM Admitting Provider: Nicoals Cárdenas MD, (Active) Attending Provider: Niko Spicer DO, starting on FriMay 14, 2024 9:12 PM, ending on FriMay 15, 2024 12:05 AM (Inactive) Attending Provider: Nicolas Cárdenas MD, starting on FriMay 14, 2024 11:07 PM (Active) Nurse Practitioner: TYE Menendez CNP, starting on FriMay 14, 2024 8:54 PM, ending on FriMay 15, 2024 12:13 AM (Inactive) Registered Nurse: Esperanza Davila RN, starting on FriMay 14, 2024 9:10 PM, ending on FriMay 14, 2024 11:06 PM (Inactive) Registered Nurse: Lucille Mendieta RN, starting on FriMay 14, 2024 11:13 PM, ending on FriMay 15, 2024 12:13 AM (Inactive) Registered Nurse: Andria Vivas RN, starting on FriMay 15, 2024 12:45 AM (Active) Commutator Tester: Ellie Leach, starting on FriMay 15, 2024 1:23 AM (Active) Chief Complaint: Hypoglycemia HPI: He had prior ed visit Abd pain, some diarrhea, some nausea Some of the pain was up in his chest after he got morphine He was seen at the ed then at home had more nausea, more vomiting and then a lot of loose stools Nonbloody vomiting and diarrhea He was not able to eat Then his glucose dropped and he became weak He does have an insulin pump and it was currently running. He also has a CGM when his glucose was dropping he got tired and weak and took his pump off Last time vomited as in the ed Last bm was 2 hrs before coming to the ed. He reports he now feels better and may want to try and eat He is on u200 insulin in his pump, he fills it manually with pens He only reported chest pain after receiving morphine x 2 Review of Systems: General: Skin: HEENT: Cardiovascular Fever n Rashes Difficulty chewing Chest Pain Only after morphine Chills y Sores Appetite Loss Chest Pressure Fatigue n Epistaxis Orthopnea Sweats n Hearing loss Palpitations GI: Tinnitus GERD Vision quality RESP: Abdominal Pain y : SOB/[place] y Nausea y Hematuria n Cough n Vomiting y Dysuria n Productive/Sputum n Hematemesis NEURO: Urgency n Hemoptysis n Diarrhea He has some chronic diarrhea Headaches Frequency n Wheezing Constipation Seizures Times at night urinating n Heamatochezia Neuropathy catheter present n MSK: Melena Focal weakness Hesitancy Focal Numbness Incontinence Acute joint pain n Dizzy/Vertigo lightheaded Redness n Difficulty speaking Heme/Lymph Swelling n Difficulty walking Lymphadenopathy Myalgia n Ataxia Chronic joint pain Knees and shoulders and hands Past Medical History: Diagnosis Date CAD (coronary artery disease) Depression Diabetes mellitus (HCC) Hypertension Neuropathy Past Surgical History: Procedure Laterality Date CORONARY ANGIOPLASTY WITH STENT PLACEMENT Bilateral LEG AMPUTATION THROUGH LOWER TIBIA AND FIBULA Right 07/18/2021 No Known Allergies Medications Prior to Admission: Current Outpatient Medications Medication Instructions amLODIPine (NORVASC) 5 mg, Daily aspirin 81 mg, Daily atorvastatin (LIPITOR) 40 mg, Nightly buPROPion XL (Wellbutrin XL) 300 MG 24 hr tablet No dose, route, or frequency recorded. carvedilol (Coreg) 12.5 MG tablet TAKE 1 TABLET BY MOUTH TWICE DAILY WITH A MEAL/FOOD cloNIDine (CATAPRES) 0.1 mg, 3 times daily Continuous Blood Gluc Sensor (FreeStyle Tim 2 Sensor) misc No dose, route, or frequency recorded. dicyclomine (BENTYL) 20 mg, Oral, 2 times daily ferrous sulfate 325 mg hydrALAZINE (APRESOLINE) 25 mg, Oral, 3 times daily hydrOXYzine HCl (ATARAX) 25 mg, Oral, 3 times daily PRN insulin lispro (HUMALOG) 150 Units, Daily magnesium gluconate (Magonate) 500 MG tablet Take by mouth. metFORMIN (GLUCOPHAGE) 1,000 mg, 2 times daily metoclopramide (Reglan) 5 MG tablet TAKE 1 TABLET BY MOUTH BEFORE MEALS AND AT BEDTIME. ondansetron ODT (ZOFRAN-ODT) 4 mg, Oral, Every 8 hours PRN rOPINIRole (REQUIP) 1 mg, 2 time daily Social History Social History Tobacco Use Smoking status: Former Types: Cigarettes Passive exposure: Never Smokeless tobacco: Never Substance Use Topics Alcohol use: Yes Comment: socially Family History Family History Problem Relation Name Age of Onset Heart attack Mother Stroke Mother Diabetes Mother Dementia Mother Coronary artery disease Father Heart failure Father Diabetes Father Cancer Paternal Grandmother Cancer Paternal Grandfather Physical Exam Temp (24hrs), Av.2 ?C (97.1 ?F), Min:36.1 ?C (97 ?F), Max:36.2 ?C (97.1 ?F) Body mass index is 38.34 kg/m?.BMI Classification: Obese (BMI 30.0-39.9) BP (!) 191/90 (BP Location: Left arm, Patient Position: Sitting) Pulse 77 Temp 36.2 ?C (97.1 ?F) (Temporal) Resp 23 Ht 6' 4 (1.93 m) Wt (!) 315 lb (143 kg) SpO2 99% BMI 38.34 kg/m? Pulse Ox: SpO2 Av.7 % Min: 97 % Max: 100 % Supplemental O2: General appearance: He is alert oriented answering questions well no distress HEENT: Normal cephalic, atraumatic without obvious deformity. Pupils equal, round, and reactive to light. Extra ocular muscles intact. Conjunctivae/corneas clear. Neck: Supple, with full range of motion. No jugular venous distention. Trachea midline. No lymphadenopathy. Respiratory: Normal respiratory effort. Clear to auscultation, bilaterally without Rales/Wheezes/Rhonchi. Cardiovascular: Regular rate and rhythm with normal S1/S2 without murmurs, rubs or gallops. Abdomen: His abdomen is soft nontender, he has normal active bowel sounds Musculoskeletal: No clubbing, cyanosis or edema bilaterally. Full range of motion without deformity. Skin: Skin color, texture, turgor normal. No rashes or lesions. Neurologic: Neurovascularly intact without any focal sensory/motor deficits. Cranial nerves grossly intact. Labs Admission on 05/14/2024 Component Date Value Glucose 05/14/2024 102 (H) SODIUM 05/14/2024 143 POTASSIUM 05/14/2024 3.5 CHLORIDE 05/14/2024 114 (H) CARBON DIOXIDE 05/14/2024 21 (L) ANION GAP 05/14/2024 8 UREA NITROGEN 05/14/2024 28 (H) CREATININE 05/14/2024 1.05 GLUCOSE 05/14/2024 52 (L) CALCIUM 05/14/2024 8.4 AST (SGOT) 05/14/2024 40 (H) ALT 05/14/2024 33 ALKALINE PHOSPHATASE 05/14/2024 56 ALBUMIN 05/14/2024 3.4 (L) BILIRUBIN, TOTAL 05/14/2024 0.6 TOTAL PROTEIN 05/14/2024 6.7 eGFR 05/14/2024 88.1 LIPASE 05/14/2024 12 MAGNESIUM 05/14/2024 2.1 Auto WBC 05/14/2024 6.8 RBC 05/14/2024 4.65 Hemoglobin 05/14/2024 13.0 Hematocrit 05/14/2024 40.1 MCV 05/14/2024 86.2 MCH 05/14/2024 28.0 MCHC 05/14/2024 32.4 RDW 05/14/2024 13.9 Platelets 05/14/2024 212 MPV 05/14/2024 10.6 pH, Venous 05/14/2024 7.309 (L) pCO2, Venous 05/14/2024 44.1 pO2, Venous 05/14/2024 38.5 HCO3, Venous 05/14/2024 21.7 O2 Sat, Venous 05/14/2024 69.2 Base Excess, Venous 05/14/2024 -4.5 (L) Hgb, blood gas 05/14/2024 13.6 TCO2, Venous 05/14/2024 23.0 Source Of Oxygen 05/14/2024 Room Air BETA HYDROXYBUTYRATE 05/14/2024 1.0 Heart Rate 05/14/2024 69 QRSD Interval 05/14/2024 100 QT Interval 05/14/2024 415 QTC Interval 05/14/2024 443 P [place] 05/14/2024 243 QRS [place] 05/14/2024 19 T [place] 05/14/2024 35 CA Interval 05/14/2024 151 Troponin HS, Serial Base* 05/14/2024 6 Troponin HS, Serial Seco* 05/14/2024 9 Glucose 05/15/2024 295 (H) EKG Encounter Date: 05/14/24 ECG 12 lead Result Value Heart Rate 69 QRSD Interval 100 QT Interval 415 QTC Interval 443 P [place] 243 QRS [place] 19 T [place] 35 CA Interval 151 Impression Sinus rhythm Inferior infarct, old Electronically Signed On 05-14-2024 23:29:14 EST by Niko Spicer Assessment/Plan and Medical Decision Making Hypoglycemia Likely the cause of his weakness Hypoglycemia likely due to him having difficulty tolerating p.o. due to his nausea and vomiting His insulin pump currently has been disconnected he is currently wearing a CGM In discussing with him he has a very specific insulin regimen he feels that his pump with U200 insulin Since he is feeling better likely to resume p.o. best thing would be to refill his pump restart his pump which will need to be done through endocrine - endocrinology consult placed He additionally takes metformin which will be ordered Abd pain, nausea and vomiting Patient with inability to tolerate p.o. recently had some nausea vomiting Prior ED visit with CT scan showing possible ileus I suspect this is now resolving since he is feeling improved and abdomen is becoming less distended even without an NG tube Likely will be able to resume p.o. soon will provide pain and nausea control as needed supplement with IV fluids Chest pain He only reported episodes of chest pain when he took morphine states happened right after morphine High-sensitivity troponins negative EKG was sinus rhythm I have added morphine to his allergy list and we will choose alternative pain med of Dilaudid I reconciled the rest of his home medicines Including his amlodipine, carvedilol, clonidine, hydralazine, for blood pressure is Atarax, Wellbutrin, and Requip Resume diet I discussed the need for admission with the emergency provider. -DVT prophylaxis: [x] Lovenox [] Heparin [] SCDs [x] Encourage ambulation [] Already on Anticoagulation [] Pharmocologic prophylaxis on hold to due risk bleed/procedure [] Low risk, ambulatory [] Both pharmacologic and mechanical contraindicated 54 minutes - Time spent on admission 05/15/2024 Ta Brantley [id number] Any scheduled follow up appointments Extended Emergency Contact Information Primary Emergency Contact: Lorie Hernandezd Mobile Relation: Other Secondary Emergency Contact: Dayami Brantley [place] Relation: Spouse Portions of this note may be electronically transcribed. Please forward a copy of this H&P to the primary care physician. HIGH SENSITIVITY TROPONIN, SERIAL, SECOND TEST Collected: 05/14/2024 11:54 PM Status: F Source: [facility] TYPE CODE TESTS RESULT OUT OF RANGE REFERENCE UNITS LAB 534 TROPONIN HS, SERIAL REFLEX, TEST TWO 9 <=35 ng/L Performed By: Medical Direct or: CHARLENE BATRES ([id number]) [facility] ([facility] [address] ED NURSING NOTE Observed: 05/14/2024 11:45 PM Status: COMPLETED Source: [facility] [employer] [facility] Maycol Hernandez brother in law . Sister is home sick. If you need to talk to family please call brother in law. ECG 12-LEAD Observed: 05/14/2024 11:29 PM Status: F Source: [facility] [employer] [facility] IMPRESSION: Sinus rhythm Inferior infarct, old Electronically Signed On 05-14-2024 23:29:14 EST by Niko Spicer HIGH SENSITIVITY TROPONIN, SERIAL BASELINE Collected: 05/14/2024 10:01 PM Status: F Source: [facility] TYPE CODE TESTS RESULT OUT OF RANGE REFERENCE UNITS LAB [id number] TROPONIN HIGH SENSITIVITY BASELINE 6 <=35 ng/L Performed By: Medical Direct or: CHARLENE BATRES ([id number]) [facility] ([facility]) [address] ED NURSING NOTE Observed: 05/14/2024 9:40 PM Status: COMPLETED Source: [facility] EKG presented to provider, n otified of pt heaves, additional anti nausea medication ordered. ED NURSING NOTE Observed: 05/14/2024 9:35 PM Status: COMPLETED Source: [facility] Pt family member exits room and reports rapid onset chest pain. Upon assessment of the pt, pt reports 10/10 crushing chest pain. STAT EKG ordered, provider notified. MAGNESIUM Collected: 9:14 PM Status: F Source: [facility] TYPE CODE TESTS RESULT OUT OF RANGE REFERENCE UNITS LAB [id number] MAGNESIUM 2.1 1.6-2.6 mg/dL Result Comment: ORDER COMMEN TS: Higher values can be expected in females during menses. Performed By: Medical Direct or: CHARLENE BATRES ([id number]) [facility] ([facility] [address] LIPASE Collected: 9:14 PM Status: F Source: [facility] TYPE CODE TESTS RESULT OUT OF RANGE REFERENCE UNITS LAB 4462831 LIPASE 12 <55 U/L Performed By: Medical Direct or: CHARLENE BATRES ([id number]) [facility] ([facility]) [address] BETA HYDROXYBUTYRATE Collected: 05/14/2024 9:14 PM S tatus: F Source: [facility] TYPE CODE TESTS RESULT OUT OF RANGE REFERENCE UNITS LAB 6141898 BETA HYDROXYBUTYRATE 1.0 <=2.8 mg/dL Performed By: Medical Direct or: CHARLENE BATRES ([id number]) [facility] ([facility]) [address] COMPREHENSIVE METABOLIC PANEL Collected: 05/14/2024 9 :14 PM Status: F Source: [facility] TYPE CODE TESTS RESULT OUT OF RANGE REFERENCE UNITS LAB 1131477 SODIUM 143 136-145 mmol/L LAB 0376813 POTASSIUM 3.5 3.5-5.1 mmol/L Result Comment: Plasma potas sium values may be up to 0.5 mmol/L lower than serum values. LAB 4754630 CHLORIDE 114 High 98-107 mmol/L LAB 9549820 CARBON DIOXIDE 21 Low 22-29 mmol/L LAB [id number] ANION GAP (BRUNER, CALCULATED) 8 3-13 mmol/L LAB 1617695 UREA NITROGEN 28 High 8-21 mg/dL LAB 8484495 CREATININE 1.05 0.72-1.25 mg/dL LAB 6142415 GLUCOSE 52 Low 74-100 mg/dL LAB 3978287 CALCIUM 8.4 8.4-10.2 mg/dL LAB 0996933 AST (SGOT) 40 High <34 U/L LAB 0461039 ALT 33 <40 U/L LAB 2423864 ALKALINE PHOSPHATASE 56 40-150 U/L LAB 2195938 ALBUMIN 3.4 Low 3.5-5.0 g/dL LAB 5277043 BILIRUBIN, TOTAL 0.6 <1.2 mg/dL LAB 2667233 TOTAL PROTEIN 6.7 6.4-8.3 g/dL LAB 5773340 GLOMERULAR FILTRATION RATE ML/MIN/1.73 SQ M.PREDICTED 88.1 >60.0 mL/min/1. 73m*2 Result Comment: Calculation based on the Chronic Kidney Disease Epidemiology Collaboration (CKD-EPI) equation refit without adjustment for race Performed By: [employer] Direct or: CHARLENE BATRES ([id number]) [facility] ([facility]) [address] CBC (HEMOGRAM) Collected: 05/14/2024 9:14 PM Status: F Source: [facility] TYPE CODE TESTS RESULT OUT OF RANGE REFERENCE UNITS LAB 1201892 WBC 6.8 3.6-10.7 10*3/uL LAB 2877986 RBC 4.65 4.40-5.90 10*6/uL LAB 2086800 HEMOGLOBIN 13.0 13.0-18.0 g/dL LAB 5890283 HEMATOCRIT 40.1 40.0-52.0 % LAB 8459297 MCV 86.2 77.0-99.0 fL LAB 9973479 MCH 28.0 26.0-34.0 pg LAB 1587146 MCHC 32.4 30.5-36.0 % LAB 3882051 RDW 13.9 11.5-15.0 % LAB 8015327 PLATELET COUNT 212 140-440 10*3/uL LAB 9675733 MPV 10.6 9.0-12.7 fL Performed By: [employer] Direct or: CHARLENE BATRES ([id number]) [facility] [address] [place] [address] BLOOD GAS, VENOUS Collected: 05/14/2024 9:14 PM Stat us: F Source: [facility] TYPE CODE TESTS RESULT OUT OF RANGE REFERENCE UNITS LAB 1408919 PH VENOUS 7.309 Low 7.320-7.420 LAB 3726181 PCO2, SHERRI 44.1 38.0-56.0 mm Hg LAB 4836078 OXYGEN (MM HG) IN VENOUS BLOOD 38.5 mm Hg LAB 1513182 HCO3 VENOUS 21.7 21.0-30.0 mmol/L LAB 4123689 OXYGEN SATURATION (%) IN VENOUS BLOOD 69.2 % LAB 8834327 BASE EXCESS (MMOL/L) IN VENOUS BLOOD BY CALCULATION -4.5 Low -3.0-3.0 mmol/L LAB 9426619 HEMOGLOBIN BLOOD GAS 13.6 Screen only g/dl LAB 2771147 TOTAL CO2, VENOUS 23.0 23.0-30.0 mmol/L LAB 1568461 SOURCE OF OXYGEN Room Air Result Comment: ORDER COMMEN TS: Assessment of oxygenation is best done with an arterial blood gas determination. Reference ranges for pO2, bicarbonate, and base excess are for mixed venous blood. Specimens drawn from a peripheral vein will often have higher values. Performed By: [employer] Direct or: CHARLENE BATRES ([id number]) [facility] ([facility]) [address] [place] [address] [facility] ED PROVIDER NOTE Observed: 05/14/2024 8:52 PM Status: COMPLETED Source: [employer] [facility] Emergency Department Encoun er [facility] ED Patient: Ta Brantley : 1975 Date of Evaluation: 05/14/2024 ED Supervising Physician: Niko Spicer DO I personally saw Ta Brantley and made/approved the management plan and take responsibility for the patient management. This will serve as my Supervisory note and shared attestation. I did perform a substantive portion of the visit including all aspects of the Medical Decision Making. I wore appropriate PPE for the entirety of this encounter. In brief, Ta Brantley is a 49 y.o. that presents to the emergency department diffuse and upper abdominal pain nausea vomiting diarrhea over the past 2 days. Also states he has pressure-like chest pain. Diagnosed with a viral illness 2 days ago, CT scan showed likely enteritis picture. This consistent with his diarrhea. States he is now getting hypoglycemic because he is unable to tolerate p.o., turned off his insulin pump today. Focused exam: Alert and oriented ?4, no acute distress, nontoxic appearing, Pulm: clear to auscultation bilaterally, Cardiac: regular rate and rhythm, Abdomen: soft mild to moderate tenderness palpation throughout the upper abdomen with mild distention, similar exam 2 days ago, Neuro: no focal motor or sensory deficits. Brief ED course/MDM: Abdominal pain nausea vomiting diarrhea and chest pain. Cardiac workup is benign, low suspicion for ACS. Lab work today shows no leukocytosis. Patient is hypoglycemic, given D5. Bicarb 21, no anion gap. Slightly acidemic at 7.309 but normal beta hydroxybutyrate. EKG showed no ischemic changes. As this is the patient's second visit for these intractable symptoms, will admit for further pain and nausea control Diagnostics interpreted by me: I personally discussed the patient's management with other clinicians: US ACS hospitalist All diagnostic, treatment, and disposition decisions were made by myself in conjunction with the [facility]. For all further details of the patient's emergency department visit, please see their documentation. (Comment: Please note this report has been produced using speech recognition software and may contain errors related to that system including errors in grammar, punctuation, and spelling, as well as words and phrases that may be inappropriate. If there are any questions or concerns please feel free to contact the dictating provider for clarification.) Niko Spicer, [employer] Niko A DO Dannielle 05/14/24 2320 ED PROVIDER NOTE Observed: 05/14/2024 8:52 PM Status: COMPLETED Source: [facility] EMERGENCY DEPARTMENT ENCOUNT ER Pt Name: Ta Brantley Birthdate 1975 Date of evaluation: 05/14/2024 ED Provider: Nicolas Kiser APRN - COLIN This patient was seen in conjunction with Dr. Spicer CHIEF COMPLAINT Chief Complaint Patient presents with Hypoglycemia HISTORY OF PRESENT ILLNESS (Location/Symptom, Timing/Onset, Context/Setting, Quality, Duration, Modifying Factors, Severity) Note limiting factors. I wore appropriate PPE for the entirety of this encounter. HPI Ta Brantley is a 49 y.o. who presents to the emergency department with chief complaint of abdominal pain, nausea, vomiting, diarrhea. Seen 2 days ago for similar complaint. States he really has not been eating or drinking much she has had persistent nausea and a lot of diarrhea for the last [address] 2 days ago showed a lot of fluid throughout the intestines consistent with enteritis. He is a diabetic he has an insulin pump, he states, his insulin pump was still on him even though he had been eating and drinking and he had a hypoglycemic episode earlier today so we did unhook his insulin pump. He denies any chest pain or shortness of breath. Nursing Notes were reviewed. Limitations to history: None Outside historians: None REVIEW OF SYSTEMS Review of Systems Constitutional: Negative for activity change, appetite change, chills and fever. HENT: Negative for congestion, nosebleeds, postnasal drip, sore throat and trouble swallowing. Eyes: Negative for pain and visual disturbance. Respiratory: Negative for cough and shortness of breath. Cardiovascular: Negative for chest pain. Gastrointestinal: Positive for abdominal pain, diarrhea, nausea and vomiting. Genitourinary: Negative for dysuria, flank pain, hematuria, penile discharge, scrotal swelling and testicular pain. Musculoskeletal: Negative for arthralgias, back pain and myalgias. Skin: Negative for rash and wound. Neurological: Negative for dizziness, syncope, weakness and light-headedness. Psychiatric/Behavioral: Negative for agitation and confusion. All other systems reviewed and are negative. Pertinent positives and negatives as per HPI. PAST MEDICAL HISTORY Past Medical History: Diagnosis Date CAD (coronary artery disease) Depression Diabetes mellitus (HCC) Hypertension Neuropathy SURGICAL HISTORY Past Surgical History: Procedure Laterality Date CORONARY ANGIOPLASTY WITH STENT PLACEMENT Bilateral LEG AMPUTATION THROUGH LOWER TIBIA AND FIBULA Right 07/18/2021 CURRENT MEDICATIONS Previous Medications AMLODIPINE (NORVASC) 5 MG TABLET Take 5 mg by mouth daily. ASPIRIN 81 MG EC TABLET Take 81 mg by mouth daily. ATORVASTATIN (LIPITOR) 40 MG TABLET Take 40 mg by mouth Nightly. BUPROPION XL (WELLBUTRIN XL) 300 MG 24 HR TABLET CARVEDILOL (COREG) 12.5 MG TABLET TAKE 1 TABLET BY MOUTH TWICE DAILY WITH A MEAL/FOOD CLONIDINE (CATAPRES) 0.1 MG TABLET Take 0.1 mg by mouth 3 times daily. CONTINUOUS BLOOD GLUC SENSOR (CapsoVisionSTYLE TIM 2 SENSOR) MISC DICYCLOMINE (BENTYL) 20 MG TABLET Take 1 tablet (20 mg) by mouth 2 times daily for 10 days. FERROUS SULFATE 325 (65 FE) MG TABLET Take 325 mg by mouth. HYDRALAZINE (APRESOLINE) 25 MG TABLET Take 1 tablet (25 mg) by mouth 3 times daily for 8 days. HYDROXYZINE HCL (ATARAX) 25 MG TABLET Take 25 mg by mouth 3 times daily as needed. INSULIN LISPRO (HUMALOG) 100 UNIT/ML INJECTION 150 Units before bedtime. MAGNESIUM GLUCONATE (MAGONATE) 500 MG TABLET Take by mouth. METFORMIN (GLUCOPHAGE) 1000 MG TABLET Take 1,000 mg by mouth 2 times daily. METOCLOPRAMIDE (REGLAN) 5 MG TABLET TAKE 1 TABLET BY MOUTH BEFORE MEALS AND AT BEDTIME. ONDANSETRON ODT (ZOFRAN-ODT) 4 MG DISINTEGRATING TABLET Take 1 tablet (4 mg) by mouth every 8 hours as needed for nausea or vomiting for up to 7 days. ROPINIROLE (REQUIP) 1 MG TABLET Take 1 mg by mouth in the morning and 1 mg in the evening. ALLERGIES Patient has no known allergies. FAMILY HISTORY Family History Problem Relation Name Age of Onset Heart attack Mother Stroke Mother Diabetes Mother Dementia Mother Coronary artery disease Father Heart failure Father Diabetes Father Cancer Paternal Grandmother Cancer Paternal Grandfather SOCIAL HISTORY Social History Socioeconomic History Marital status: Tobacco Use Smoking status: Former Types: Cigarettes Passive exposure: Never Smokeless tobacco: Never Vaping Use Vaping status: Never Used Substance and Sexual Activity Alcohol use: Yes Comment: socially Drug use: Never Social Drivers of Health Intimate Partner Violence: Not At Risk (11/20/2022) Humiliation, Afraid, Rape, and Kick questionnaire Fear of Current or Ex-Partner: No Emotionally Abused: No Physically Abused: No Sexually Abused: No SCREENINGS [place] Coma Scale Best Eye Response: Spontaneous Best Verbal Response: Oriented Best Motor Response: Follows commands [place] Coma Scale Score: 15 PHYSICAL EXAM ED Triage Vitals [05/14/242106] Temp Heart Rate Resp BP 36.1 ?C (97 ?F) 70 12 (!) 150/75 SpO2 Temp Source Heart Rate Source Patient Position 100 % Oral -- Lying BP Location FiO2 (%) Left arm -- Physical Exam Vitals and nursing note reviewed. Constitutional: General: He is not in acute distress. Appearance: Normal appearance. He is normal weight. He is not ill-appearing or toxic-appearing. HENT: Head: Normocephalic and atraumatic. Right Ear: External ear normal. Left Ear: External ear normal. Mouth/Throat: Mouth: Mucous membranes are moist. Pharynx: Oropharynx is clear. Eyes: Extraocular Movements: Extraocular movements intact. Conjunctiva/sclera: Conjunctivae normal. Pupils: Pupils are equal, round, and reactive to light. Cardiovascular: Rate and Rhythm: Normal rate and regular rhythm. Pulses: Normal pulses. Heart sounds: Normal heart sounds. No murmur heard. Pulmonary: Effort: Pulmonary effort is normal. No respiratory distress. Breath sounds: Normal breath sounds. No stridor. No wheezing or rhonchi. Musculoskeletal: General: No swelling, tenderness, deformity or signs of injury. Normal range of motion. Cervical back: Normal range of motion and neck supple. No rigidity or tenderness. Lymphadenopathy: Cervical: No cervical adenopathy. Skin: General: Skin is warm and dry. Capillary Refill: Capillary refill takes less than 2 seconds. Coloration: Skin is not jaundiced or pale. Findings: No bruising or erythema. Neurological: General: No focal deficit present. Mental Status: He is alert and oriented to person, place, and time. Mental status is at baseline. Cranial Nerves: No cranial nerve deficit. Sensory: No sensory deficit. Motor: No weakness. Coordination: Coordination normal. Psychiatric: Mood and Affect: Mood normal. DIAGNOSTIC RESULTS Procedures/EKG: EKG was reviewed by myself. Physician EKG interpretation can be found in [facility] RADIOLOGY (Per Emergency Physician): Interpretation per the Radiologist below, if available at the time of this note: No orders to display ED BEDSIDE ULTRASOUND: Performed by ED Physician - none LABS: Labs Reviewed COMPREHENSIVE METABOLIC PANEL - Abnormal Result Value SODIUM 143 POTASSIUM 3.5 CHLORIDE 114 (*) CARBON DIOXIDE 21 (*) ANION GAP 8 UREA NITROGEN 28 (*) CREATININE 1.05 GLUCOSE 52 (*) CALCIUM 8.4 AST (SGOT) 40 (*) ALT 33 ALKALINE PHOSPHATASE 56 ALBUMIN 3.4 (*) BILIRUBIN, TOTAL 0.6 TOTAL PROTEIN 6.7 eGFR 88.1 BLOOD GAS, VENOUS - Abnormal pH, Venous 7.309 (*) pCO2, Venous 44.1 pO2, Venous 38.5 HCO3, Venous 21.7 O2 Sat, Venous 69.2 Base Excess, Venous -4.5 (*) Hgb, blood gas 13.6 TCO2, Venous 23.0 Source Of Oxygen Room Air Narrative: Assessment of oxygenation is best done with an arterial blood gas determination. Reference ranges for pO2, bicarbonate, and base excess are for mixed venous blood. Specimens drawn from a peripheral vein will often have higher values. POCT GLUCOSE METER UNSOLICITED RESULTS - Abnormal Glucose 102 (*) Narrative: Performed by: [facility], [address] [place] [address] CLIA ID: [id number] LIPASE - Normal LIPASE 12 MAGNESIUM - Normal MAGNESIUM 2.1 Narrative: Higher values can be expected in females during menses. CBC (HEMOGRAM) - Normal Auto WBC 6.8 RBC 4.65 Hemoglobin 13.0 Hematocrit 40.1 MCV 86.2 MCH 28.0 MCHC 32.4 RDW 13.9 Platelets 212 MPV 10.6 BETA HYDROXYBUTYRATE - Normal BETA HYDROXYBUTYRATE 1.0 HIGH SENSITIVITY TROPONIN, SERIAL BASELINE - Normal Troponin HS, Serial Baseline 6 HIGH SENSITIVITY TROPONIN, SERIAL, SECOND TEST COMPLETE URINALYSIS WITH REFLEX TO CULTURE Narrative: The following orders were created for panel order Urinalysis complete with reflex to Culture. Procedure Abnormality Status --------- ------ Complete Urinalysis[[id number]] Please view results for these tests on the individual orders. COMPLETE URINALYSIS POCT GLUCOSE METER All other labs were within normal range or not returned as of this dictation. EMERGENCY DEPARTMENT COURSE and DIFFERENTIAL DIAGNOSIS/MDM: Vitals: Vitals: 05/14/24 2107 05/14/24 2133 05/14/24 2136 05/14/24 2200 BP: (!) 150/75 113/85 (!) 152/79 (!) 145/67 BP Location: Left arm Patient Position: Lying Pulse: 70 67 69 71 Resp: 12 15 19 12 Temp: 36.1 ?C (97 ?F) TempSrc: Oral SpO2: 100% 97% Weight: (!) 143 kg (315 lb) Height: 1.93 m (6' 4) Diagnoses as of 05/14/24 2353 Nausea vomiting and diarrhea Chest pain, unspecified type Type 2 diabetes mellitus without complication, with long-term current use of insulin ([facility] ([facility]) The patient presented with chief complaint of with chief complaint of abdominal pain, nausea, vomiting, diarrhea. Seen 2 days ago for similar complaint. States he really has not been eating or drinking much she has had persistent nausea and a lot of diarrhea for the last [address] 2 days ago showed a lot of fluid throughout the intestines consistent with enteritis. He is a diabetic he has an insulin pump, he states, his insulin pump was still on him even though he had been eating and drinking and he had a hypoglycemic episode earlier today so we did unhook his insulin pump. He denies any chest pain or shortness of breath.. The differential diagnosis associated with this patient's presentation includes glycemia, enteritis, complications of diabetes, dehydration, kidney injury. Our workup consisted of ordering/reviewing: CBC, CMP, lipase, magnesium, beta hydroxybutyrate, venous blood gas. Diagnostic tests considered but not performed: CT abdomen pelvis however he has a nonspecific abdominal exam with no focal tenderness CT 2 days ago just showed enteritis. To aid in management, I performed an independent interpretation of EKG(s) EKG per my interpretation showed sinus rhythm rate of [address] elevation or depression with normal intervals. I also reviewed external records from none. I discussed their care with Admitting team Dr. Cárdenas. Consideration for escalation of care with: Admission/observation patient continues to have vomiting and diarrhea for 3 days, he was hypoglycemic today he removed his insulin pump he got chest pain a couple days ago and we gave him morphine he got upper abdominal pain and chest pain again today I believe he is getting some sort of biliary or abdominal spasm from the morphine he did better with the hydromorphone we will admit him for hydration and some control and trend his cardiac enzymes. The patient will be Admitted. Patient is in agreement with this plan. Medications dextrose 5 % and sodium chloride 0.9 % bolus 250 mL (250 mL IntraVENous New Bag 05/14/242154) sodium chloride 0.9 % bolus 1,000 mL (0 mL IntraVENous Stopped 05/14/242316) ondansetron (Zofran) injection 4 mg (4 mg IntraVENous Given 05/14/242117) morphine injection 4 mg (4 mg IntraVENous Given 05/14/242117) metoclopramide (Reglan) injection 10 mg (10 mg IntraVENous Given 05/14/242139) diphenhydrAMINE (BENADryl) injection 25 mg (25 mg IntraVENous Given 05/14/242139) HYDROmorphone (Dilaudid) injection 1 mg (1 mg IntraVENous Given 05/14/242151) REVAL: CRITICAL CARE TIME None CONSULTS: None PROCEDURES: Unless otherwise noted below, none Procedures Patients symptoms are consistent with sepsis, severe sepsis, or septic shock (If yes use .sepsiscoremeasure): no FINAL IMPRESSION 1. Nausea vomiting and diarrhea 2. Chest pain, unspecified type 3. Type 2 diabetes mellitus without complication, with long-term current use of insulin ([facility]) ([facility]) DISPOSITION Admit 05/14/2024 11:07:02 PM PATIENT REFERRED TO: No follow-up provider specified. DISCHARGE MEDICATIONS: New Prescriptions No medications on file (Comment: Please note this report has been produced using speech recognition software and may contain errors related to that system including errors in grammar, punctuation, and spelling, as well as words and phrases that may be inappropriate. If there are any questions or concerns please feel free to contact the dictating provider for clarification.) TYE Menendez CNP (electronically signed) Emergency Medicine Provider TYE Menendez CNP 05/14/24 4670 ECG 12-LEAD Observed: 05/12/2024 3:56 PM Status: F Source: [facility] [employer] IMPRESSION: Sinus rhythm Abnormal R-wave progression, late transition Inferior infarct, old Borderline ST elevation, anterior leads No change compared to previous ekg Electronically Signed On 05-12-2024 15:56:25 EST by Jose Ashley HIGH SENSITIVITY TROPONIN, SERIAL, THIRD TEST Collected: 05/12/2024 3:12 PM Status: F Source: [facility] TYPE CODE TESTS RESULT OUT OF RANGE REFERENCE UNITS LAB 826 TROPONIN HS, SERIAL REFLEX, TEST THREE 34 <=35 ng/L Performed By: [employer] or: CHARLENE BATRES ([id number]) [facility]ITALNimes[facility] Buddha SoftwareRAGHAVENDRA ([facility]) [address] BASIC METABOLIC PANEL Collected: 2024 1:10 PM Status: F Source: [facility] [employer] [facility] TYPE CODE TESTS RESULT OUT OF RANGE REFERENCE UNITS LAB [id number] SODIUM 139 136-145 mmol/L LAB [id number] POTASSIUM 4.8 3.5-5.1 mmol/L Result Comment: Plasma potas sium values may be up to 0.5 mmol/L lower than serum values. LAB 1570612 CHLORIDE 114 High 98-107 mmol/L LAB [id number] CARBON DIOXIDE 17 Low 22-29 mmol/L LAB 1421375 UREA NITROGEN 28 High 8-21 mg/dL LAB 6240396 CREATININE 1.07 0.72-1.25 mg/dL LAB 7721406 GLUCOSE 158 High 74-100 mg/dL LAB 4999198 CALCIUM 7.7 Low 8.4-10.2 mg/dL LAB [id number] ANION GAP (BRUNER, CALCULATED) 8 3-13 mmol/L LAB 0078582 GLOMERULAR FILTRATION RATE ML/MIN/1.73 SQ M.PREDICTED 86.1 >60.0 mL/min/1. 73m*2 Result Comment: Calculation based on the Chronic Kidney Disease Epidemiology Collaboration (CKD-EPI) equation refit without adjustment for race Performed By: [employer] or: CHARLENE BATRES ([id number]) MICHAEL WADDELL ([facility]) [address] HIGH SENSITIVITY TROPONIN, SERIAL, SECOND TEST Collected: 05/12/2024 1:10 PM Status: F Source: [facility] TYPE CODE TESTS RESULT OUT OF RANGE REFERENCE UNITS LAB 534 TROPONIN HS, SERIAL REFLEX, TEST TWO 38 High <=35 ng/L Performed By: [employer] or: CHARLENE BATRES ([id number]) [facility] ([facility]) [address] HIGH SENSITIVITY TROPONIN, SERIAL BASELINE Collected: 05/12/2024 11:12 AM Status: F Source: [facility] TYPE CODE TESTS RESULT OUT OF RANGE REFERENCE UNITS LAB [id number] TROPONIN HIGH SENSITIVITY BASELINE 33 <=35 ng/L Performed By: [employer] or: CHARLENE BATRES ([id number]) [facility] ([facility]) [address] ABDOMEN PELVIS WO IV CONTRAST Observed: 05/12/2024 10:55 AM Status: F Source: [facility] Patient Name: [facility]ANDE[facility]ANT[facility] : 1975 [id number] Exam Date/Time: 05/12/2024 09:20 Procedure: CT ABDOMEN PELVIS WO IV CONTRAST Ordering Provider: KISER DANIEL Reason For Exam: Flank pain, kidney stone suspected CT ABDOMEN AND PELVIS WITHOUT IV CONTRAST CLINICAL HISTORY: Right lower abdominal pain. Flank pain. TECHNIQUE: CT of the abdomen and pelvis was performed without IV contrast using standard technique. Dose reduction was employed with automated exposure control. Contrast: None COMPARISON: CT abdomen/pelvis 11/20/2022 RESULT: Limitations: Unenhanced imaging is limited for the evaluation of some intra-abdominal and pelvic pathology. Liver: Unremarkable. Biliary: No bile duct dilation. Cholecystectomy Spleen: No mass. No splenomegaly. Pancreas: No mass or duct dilation. Adrenals:No mass. Kidneys: No radiopaque obstructing calculus or hydronephrosis. A few left parapelvic cysts measuring up to 2.0 cm. No follow-up is required. GI tract: Suboptimal assessment without enteric contrast. Multiple fluid-filled dilated loops of small bowel measuring up to 3.5 cm are nonspecific. No focal transition point. No pneumatosis. Appendix is unremarkable. No apparent inflammatory changes adjacent to the terminal ileum. Lymph nodes: No abdominal lymphadenopathy. Mesentery/Peritoneum: No ascites or mass. No free air. Retroperitoneum: No mass. Vasculature: Arterial atherosclerotic disease without aneurysm. Pelvis: No mass, ascites or fluid collection. Urinary bladder is decompressed and poorly assessed. Bones/Soft Tissues: Degenerative changes. New superior endplate of T12 since prior CT of 11/20/2022 with mild sclerosis. No significant adjacent edema. There is approximately 25% height loss. No significant bony retropulsion. Lower thorax: Unremarkable. IMPRESSION: Multiple fluid-filled dilated loops of small bowel measuring up to 3.5 cm. No focal transition point. Findings are nonspecific though may reflect ileus or possibly enteritis if in the appropriate clinical setting. New superior endplate of T12 since prior CT of 11/20/2022 with mild sclerosis. No significant adjacent edema. This is suspected to be chronic however correlation with point tenderness is recommended. Report Dictated on Electronically Signed By: Henrry Thacker MD Electronically Signed Date/Time: 05/12/2024 10:55 AM EST c/o right lower abd pain that started around 0300 today. 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 CBC (HEMOGRAM) Collected: 05/12/2024 9:34 AM Status: F Source: [facility] TYPE CODE TESTS RESULT OUT OF RANGE REFERENCE UNITS LAB 3327735 WBC 8.5 3.6-10.7 10*3/uL LAB 5824961 RBC 5.27 4.40-5.90 10*6/uL LAB 3141598 HEMOGLOBIN 15.0 13.0-18.0 g/dL LAB 8046939 HEMATOCRIT 45.4 40.0-52.0 % LAB 2007514 MCV 86.1 77.0-99.0 fL LAB 5873331 MCH 28.5 26.0-34.0 pg LAB 0292380 MCHC 33.0 30.5-36.0 % LAB 3826487 RDW 14.0 11.5-15.0 % LAB 5220480 PLATELET COUNT 297 140-440 10*3/uL LAB 8055515 MPV 10.6 9.0-12.7 fL Performed By: [employer] or: CHARLENE BATRES ([id number]) [facility]ITALNimesh WADDELL ([facility]) [employer] [address] BASIC METABOLIC PANEL Collected: 2024 9:34 AM Status: F Source: [facility] TYPE CODE TESTS RESULT OUT OF RANGE REFERENCE UNITS LAB 5590022 SODIUM 140 136-145 mmol/L LAB 8247307 POTASSIUM 4.6 3.5-5.1 mmol/L Result Comment: Plasma potas sium values may be up to 0.5 mmol/L lower than serum values. LAB 2397489 CHLORIDE 108 High 98-107 mmol/L LAB 6461056 CARBON DIOXIDE 24 22-29 mmol/L LAB 5922372 UREA NITROGEN 26 High 8-21 mg/dL LAB 2498446 CREATININE 1.31 High 0.72-1.25 mg/dL LAB 1093834 GLUCOSE 206 High 74-100 mg/dL LAB 3485186 CALCIUM 9.0 8.4-10.2 mg/dL LAB [id number] ANION GAP (BRUNER, CALCULATED) 8 3-13 mmol/L LAB 1740465 GLOMERULAR FILTRATION RATE ML/MIN/1.73 SQ M.PREDICTED 67.6 >60.0 mL/min/1. 73m*2 Result Comment: Calculation based on the Chronic Kidney Disease Epidemiology Collaboration (CKD-EPI) equation refit without adjustment for race Performed By: [employer] or: CHARLENE BATRES ([id number]) [facility] ([address] HEPATIC FUNCTION PANEL Collected: 05/12/2024 9:34 AM Status: F Source: [facility] TYPE CODE TESTS RESULT OUT OF RANGE REFERENCE UNITS LAB 4442337 BILIRUBIN, TOTAL 0.7 <1.2 mg/dL LAB 2579928 BILIRUBIN, DIRECT 0.3 <0.5 mg/dL LAB 7119417 ALKALINE PHOSPHATASE 69 40-150 U/L LAB 9678935 AST (SGOT) 22 <34 U/L LAB 6200030 ALT 28 <40 U/L LAB 6923274 ALBUMIN 3.8 3.5-5.0 g/dL LAB 9390492 TOTAL PROTEIN 7.0 6.4-8.3 g/dL Result Comment: Serum protei n values are higher than plasma values. Samples from recumbent persons are lower by up to 0.5 g/dL as compared to ambulatory persons. After 60 years values are lower by up to 0.2 g/dL. Performed By: [employer] or: CHARLENE BATRES ([id number]) [facility] ([facility]) [address] LIPASE Collected: 9:34 AM Status: F Source: [facility] TYPE CODE TESTS RESULT OUT OF RANGE REFERENCE UNITS LAB 3006255 LIPASE 16 <55 U/L Performed By: [employer] or: CHARLENE BATRES ([id number]) [facility] ([facility]) [address] BETA HYDROXYBUTYRATE Collected: 05/12/2024 9:34 AM S tatus: F Source: [facility] TYPE CODE TESTS RESULT OUT OF RANGE REFERENCE UNITS LAB 1239552 BETA HYDROXYBUTYRATE 1.2 <=2.8 mg/dL Performed By: [employer] or: CHARLENE BATRES ([id number]) [facility] ([facility]) [address] BLOOD GAS, VENOUS Collected: 05/12/2024 9:34 AM Stat us: F Source: [facility] TYPE CODE TESTS RESULT OUT OF RANGE REFERENCE UNITS LAB 5048201 PH VENOUS 7.340 7.320-7.420 LAB 4680454 PCO2, SHERRI 41.5 38.0-56.0 mm Hg LAB 7245734 OXYGEN (MM HG) IN VENOUS BLOOD 41.6 mm Hg LAB 5246044 HCO3 VENOUS 21.9 21.0-30.0 mmol/L LAB 3182880 OXYGEN SATURATION (%) IN VENOUS BLOOD 74.1 % LAB 4119174 BASE EXCESS (MMOL/L) IN VENOUS BLOOD BY CALCULATION -3.7 Low -3.0-3.0 mmol/L LAB 4220373 HEMOGLOBIN BLOOD GAS 15.3 Screen only g/dl LAB 6341041 TOTAL CO2, VENOUS 23.2 23.0-30.0 mmol/L LAB 8550365 SOURCE OF OXYGEN Room Air Result Comment: ORDER COMMEN TS: Assessment of oxygenation is best done with an arterial blood gas determination. Reference ranges for pO2, bicarbonate, and base excess are for mixed venous blood. Specimens drawn from a peripheral vein will often have higher values. Performed By: [employer] or: CHARLENE BATRES ([id number]) [facility] ([facility]) [address] COMPLETE URINALYSIS Collected: 05/12/2024 9:[address] atus: F Source: [facility] TYPE CODE TESTS RESULT OUT OF RANGE REFERENCE UNITS LAB 6288545 COLOR OF URINE Yellow Lt. Yellow LAB 1919014 CLARITY OF URINE Clear Clear LAB 7918018 PH OF URINE 5.5 5.0-8.0 pH LAB 9018783 LEUKOCYTE ESTERASE PRESENCE IN URINE BY TEST STRIP Negative Negative Allie/uL LAB 3886019 NITRITE PRESENCE IN URINE Negative Negative LAB 7173133 PROTEIN (MG/DL) IN URINE BY TEST STRIP 100 Abnormal Negative mg/dL LAB 1254377 GLUCOSE (MG/DL) IN URINE 70 Normal (<70) mg/dL LAB 4340741 BILIRUBIN, TOTAL PRESENCE IN URINE Negative Negative mg/dL LAB 548 KETONES (MG/DL) IN URINE Negative Negative mg/dL LAB 19 UROBILINOGEN (MG/DL) IN URINE Normal Normal (0-1) mg/dL LAB 549 HEMOGLOBIN PRESENCE IN URINE 0.2 Abnormal Negative mg/dL LAB [id number] RBC (#/HPF) IN URINE SEDIMENT 11-25 Abnormal 0-2 /HPF LAB [id number] WBC (LEUKOCYTE) (#/HPF) IN URINE SEDIMENT 3-5 0-5 /HPF LAB [id number] SQUAMOUS EPITHELIAL CELLS (#/HPF) IN URINE SEDIMENT 0-2 3-5 /HPF LAB [id number] BACTERIA (#/HPF) IN URINE Negative Negative /HPF LAB 194 MUCUS (#/LPF) IN URINE SEDIMENT Moderate Abnormal Negative /LPF LAB 70 HYALINE CASTS (#/LPF) IN URINE SEDIMENT BY MICROSCOPY -25 Abnormal Negative /LPF LAB 80 SPERMATOZOA (#/HPF) IN URINE SEDIMENT Few Abnormal Negative /HPF LAB 1199 SPECIFIC GRAVITY OF URINE (NUMERIC) 1.023 1.005-1.030 Performed By: Medical Direct or: CHARLENE BATRES ([id number]) [facility] ([facility]) [address] [place] [address] ED PROVIDER NOTE Observed: 05/12/2024 9:02 AM Status: COMPLETED Source: [facility] EMERGENCY DEPARTMENT ENCOUNT ER Pt Name: Ta Brantley Birthdate 1975 Date of evaluation: 05/12/2024 ED Provider: Nicolas Kiser APRN - COLIN This patient was seen in conjunction with Dr. Spicer CHIEF COMPLAINT Chief Complaint Patient presents with Abdominal Pain Pt comes to ED from home with c/o right lower abd pain that started around 0300 today. 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 HISTORY OF PRESENT ILLNESS (Location/Symptom, Timing/Onset, Context/Setting, Quality, Duration, Modifying Factors, Severity) Note limiting factors. I wore appropriate PPE for the entirety of this encounter. HPI Ta Brantley is a 49 y.o. who presents to the emergency department with chief complaint of abdominal pain, diarrhea, nausea vomiting. He states he has diarrhea yesterday woke up about 3 in the morning with some pain throughout his upper abdomen, right flank pain, right lower quadrant abdominal pain. He is a diabetic he has an insulin pump he had a prior below the knee amputation on the right. Denies fevers or chills or similar sick contacts. States pain came on kind of suddenly this morning around 3 AM he has had a prior cholecystectomy. Nursing Notes were reviewed. Limitations to history: None Outside historians: None REVIEW OF SYSTEMS Review of Systems Constitutional: Negative for activity change, appetite change, chills and fever. HENT: Negative for congestion, nosebleeds, postnasal drip, sore throat and trouble swallowing. Eyes: Negative for pain and visual disturbance. Respiratory: Negative for cough and shortness of breath. Cardiovascular: Negative for chest pain. Gastrointestinal: Positive for abdominal pain, diarrhea, nausea and vomiting. Genitourinary: Negative for dysuria, flank pain, hematuria, penile discharge, scrotal swelling and testicular pain. Musculoskeletal: Negative for arthralgias, back pain and myalgias. Skin: Negative for rash and wound. Neurological: Negative for dizziness, syncope, weakness and light-headedness. Psychiatric/Behavioral: Negative for agitation and confusion. All other systems reviewed and are negative. Pertinent positives and negatives as per HPI. PAST MEDICAL HISTORY Past Medical History: Diagnosis Date CAD (coronary artery disease) Depression Diabetes mellitus (HCC) Hypertension Neuropathy SURGICAL HISTORY Past Surgical History: Procedure Laterality Date CORONARY ANGIOPLASTY WITH STENT PLACEMENT Bilateral LEG AMPUTATION THROUGH LOWER TIBIA AND FIBULA Right 07/18/2021 CURRENT MEDICATIONS Previous Medications AMLODIPINE (NORVASC) 5 MG TABLET Take 5 mg by mouth daily. ASPIRIN 81 MG EC TABLET Take 81 mg by mouth daily. ATORVASTATIN (LIPITOR) 40 MG TABLET Take 40 mg by mouth Nightly. BUPROPION XL (WELLBUTRIN XL) 300 MG 24 HR TABLET CARVEDILOL (COREG) 12.5 MG TABLET TAKE 1 TABLET BY MOUTH TWICE DAILY WITH A MEAL/FOOD CLONIDINE (CATAPRES) 0.1 MG TABLET Take 0.1 mg by mouth 3 times daily. CONTINUOUS BLOOD GLUC SENSOR (FREESTYLE TIM 2 SENSOR) MISC FERROUS SULFATE 325 (65 FE) MG TABLET Take 325 mg by mouth. HYDRALAZINE (APRESOLINE) 25 MG TABLET Take 1 tablet (25 mg) by mouth 3 times daily for 8 days. HYDROXYZINE HCL (ATARAX) 25 MG TABLET Take 25 mg by mouth 3 times daily as needed. INSULIN LISPRO (HUMALOG) 100 UNIT/ML INJECTION 150 Units before bedtime. MAGNESIUM GLUCONATE (MAGONATE) 500 MG TABLET Take by mouth. METFORMIN (GLUCOPHAGE) 1000 MG TABLET Take 1,000 mg by mouth 2 times daily. METOCLOPRAMIDE (REGLAN) 5 MG TABLET TAKE 1 TABLET BY MOUTH BEFORE MEALS AND AT BEDTIME. ROPINIROLE (REQUIP) 1 MG TABLET Take 1 mg by mouth in the morning and 1 mg in the evening. ALLERGIES Patient has no known allergies. FAMILY HISTORY Family History Problem Relation Name Age of Onset Heart attack Mother Stroke Mother Diabetes Mother Dementia Mother Coronary artery disease Father Heart failure Father Diabetes Father Cancer Paternal Grandmother Cancer Paternal Grandfather SOCIAL HISTORY Social History Socioeconomic History Marital status: Tobacco Use Smoking status: Former Types: Cigarettes Passive exposure: Never Smokeless tobacco: Never Vaping Use Vaping status: Never Used Substance and Sexual Activity Alcohol use: Yes Comment: socially Drug use: Never Social Drivers of Health Intimate Partner Violence: Not At Risk (11/20/2022) Humiliation, Afraid, Rape, and Kick questionnaire Fear of Current or Ex-Partner: No Emotionally Abused: No Physically Abused: No Sexually Abused: No SCREENINGS HEART Score History: Slightly suspicious ECG: Non-specific repolarization disturbance Age: 45-64 Risk Factors: >2 risk factors or hx of atherosclerotic disease Troponin: Less than or equal to normal limit HEART Score: 4 PHYSICAL EXAM ED Triage Vitals [05/12/24 0904] Temp Heart Rate Resp BP 36.9 ?C (98.4 ?F) 95 18 (!) 158/92 SpO2 Temp Source Heart Rate Source Patient Position 99 % Temporal Monitor -- BP Location FiO2 (%) -- -- Physical Exam Vitals and nursing note reviewed. Constitutional: General: He is not in acute distress. Appearance: Normal appearance. He is not ill-appearing or toxic-appearing. HENT: Head: Normocephalic and atraumatic. Right Ear: External ear normal. Left Ear: External ear normal. Mouth/Throat: Mouth: Mucous membranes are moist. Pharynx: Oropharynx is clear. Eyes: Extraocular Movements: Extraocular movements intact. Conjunctiva/sclera: Conjunctivae normal. Pupils: Pupils are equal, round, and reactive to light. Cardiovascular: Comments: Regular rate and rhythm, normal S1-S2, no murmurs noted. Radial pulses 2+ and symmetric. Pulmonary: Effort: Pulmonary effort is normal. No respiratory distress. Breath sounds: Normal breath sounds. No stridor. No wheezing or rhonchi. Abdominal: Comments: The abdomen is soft and nondistended, mild tenderness throughout the upper abdomen with increasing tenderness in the right upper quadrant, bowel sounds are normal. Musculoskeletal: General: No swelling, tenderness, deformity or signs of injury. Normal range of motion. Cervical back: Normal range of motion and neck supple. No rigidity or tenderness. Lymphadenopathy: Cervical: No cervical adenopathy. Skin: General: Skin is warm and dry. Capillary Refill: Capillary refill takes less than 2 seconds. Coloration: Skin is not jaundiced or pale. Findings: No bruising or erythema. Neurological: General: No focal deficit present. Mental Status: He is alert and oriented to person, place, and time. Mental status is at baseline. Cranial Nerves: No cranial nerve deficit. Sensory: No sensory deficit. Motor: No weakness. Coordination: Coordination normal. Psychiatric: Mood and Affect: Mood normal. DIAGNOSTIC RESULTS Procedures/EKG: EKG was reviewed by myself. Physician EKG interpretation can be found in [facility] RADIOLOGY (Per Emergency Physician): Interpretation per the Radiologist below, if available at the time of this note: XR chest 1 view Final Result Normal chest x-ray. Report Dictated on Electronically Signed By: Paresh Desir MD Electronically Signed Date/Time: 05/12/2024 11:[address] abdomen pelvis wo IV contrast Final Result Multiple fluid-filled dilated loops of small bowel measuring up to 3.5 cm. No focal transition point. Findings are nonspecific though may reflect ileus or possibly enteritis if in the appropriate clinical setting. New superior endplate of T12 since prior CT of 11/20/2022 with mild sclerosis. No significant adjacent edema. This is suspected to be chronic however correlation with point tenderness is recommended. Report Dictated on Electronically Signed By: Henrry Thacker MD Electronically Signed Date/Time: 05/12/2024 10:55 AM EST ED BEDSIDE ULTRASOUND: Performed by ED Physician - none LABS: Labs Reviewed BASIC METABOLIC PANEL - Abnormal Result Value SODIUM 140 POTASSIUM 4.6 CHLORIDE 108 (*) CARBON DIOXIDE 24 UREA NITROGEN 26 (*) CREATININE 1.31 (*) GLUCOSE 206 (*) CALCIUM 9.0 ANION GAP 8 eGFR 67.6 BLOOD GAS, VENOUS - Abnormal pH, Venous 7.340 pCO2, Venous 41.5 pO2, Venous 41.6 HCO3, Venous 21.9 O2 Sat, Venous 74.1 Base Excess, Venous -3.7 (*) Hgb, blood gas 15.3 TCO2, Venous 23.2 Source Of Oxygen Room Air Narrative: Assessment of oxygenation is best done with an arterial blood gas determination. Reference ranges for pO2, bicarbonate, and base excess are for mixed venous blood. Specimens drawn from a peripheral vein will often have higher values. COMPLETE URINALYSIS - Abnormal Color, Urine Yellow Clarity, Urine Clear pH, Urine 5.5 Leukocytes, Urine Negative Nitrite, Urine Negative Protein, Urine 100 (*) Glucose, Urine 70 Bilirubin, Urine Negative Ketones, Urine Negative Urobilinogen, Urine Normal Blood, Urine 0.2 (*) RBC, Urine 11-25 (*) WBC, Urine 3-5 Squamous Epithelial, Urine 0-2 Bacteria, Urine Negative Mucus, Urine Moderate (*) Hyaline Casts, Urine 11-25 (*) Spermatozoa, Urine Few (*) SPECIFIC GRAVITY OF URINE (NUMERIC) 1.023 HIGH SENSITIVITY TROPONIN, SERIAL, SECOND TEST - Abnormal Troponin HS, Serial Second 38 (*) BASIC METABOLIC PANEL - Abnormal SODIUM 139 POTASSIUM 4.8 CHLORIDE 114 (*) CARBON DIOXIDE 17 (*) UREA NITROGEN 28 (*) CREATININE 1.07 GLUCOSE 158 (*) CALCIUM 7.7 (*) ANION GAP 8 eGFR 86.1 LIPASE - Normal LIPASE 16 CBC (HEMOGRAM) - Normal Auto WBC 8.5 RBC 5.27 Hemoglobin 15.0 Hematocrit 45.4 MCV 86.1 MCH 28.5 MCHC 33.0 RDW 14.0 Platelets 297 MPV 10.6 HEPATIC FUNCTION PANEL - Normal BILIRUBIN, TOTAL 0.7 BILIRUBIN, DIRECT 0.3 ALKALINE PHOSPHATASE 69 AST (SGOT) 22 ALT 28 ALBUMIN 3.8 TOTAL PROTEIN 7.0 BETA HYDROXYBUTYRATE - Normal BETA HYDROXYBUTYRATE 1.2 HIGH SENSITIVITY TROPONIN, SERIAL BASELINE - Normal Troponin HS, Serial Baseline 33 HIGH SENSITIVITY TROPONIN, SERIAL, THIRD TEST - Normal Troponin HS, Serial Third 34 COMPLETE URINALYSIS WITH REFLEX TO CULTURE Narrative: The following orders were created for panel order Urinalysis complete with reflex to Culture. Procedure Abnormality Status --------- ------ Complete Urinalysis[[id number]] Abnormal Final result Please view results for these tests on the individual orders. All other labs were within normal range or not returned as of this dictation. EMERGENCY DEPARTMENT COURSE and DIFFERENTIAL DIAGNOSIS/MDM: Vitals: Vitals: 05/12/24 0904 05/12/24 0904 05/12/24 1400 BP: (!) 158/92 135/77 Pulse: 95 104 Resp: 18 16 Temp: 36.9 ?C (98.4 ?F) TempSrc: Temporal SpO2: 99% 97% Weight: (!) 143 kg (315 lb) Height: 1.93 m (6' 4) Diagnoses as of 05/12/24 1551 Generalized abdominal pain Chest pain, unspecified type Nausea vomiting and diarrhea Acute kidney injury (HCC) The patient presented with chief complaint of with chief complaint of abdominal pain, diarrhea, nausea vomiting. He states he has diarrhea yesterday woke up about 3 in the morning with some pain throughout his upper abdomen, right flank pain, right lower quadrant abdominal pain. He is a diabetic he has an insulin pump he had a prior below the knee amputation on the right. Denies fevers or chills or similar sick contacts. States pain came on kind of suddenly this morning around 3 AM he has had a prior cholecystectomy.. The differential diagnosis associated with this patient's presentation includes complication of diabetes, gastroenteritis, renal colic, pancreatitis. Our workup consisted of ordering/reviewing: BMP, hepatic function, lipase, CBC, venous blood gas, beta hydroxybutyrate, urinalysis, CT abdomen pelvis without contrast. Diagnostic tests considered but not performed: None To aid in management, I performed an independent interpretation of EKG(s) EKG per my interpretation sinus rhythm rate [address] elevation normal intervals Xray(s) chest x-ray per my interpretation shows a normal mediastinum with no infiltrate. I also reviewed external records from [facility]. I discussed their care with none. Consideration for escalation of care with: Admission/observation patient started having chest pain in the setting of becoming nauseated with nausea vomiting and diarrhea that started today he does have multiple risk factors for coronary artery disease and he is a diabetic with an insulin pump initial troponin was 33 but this was in the setting of an acute kidney injury repeat was 38 he is no longer having chest pain but will need a third troponin if that is decreased or unchanged likely discharge home with PCP follow-up. The patient will be reevaluated after third troponin. Patient is in agreement with this plan. Medications morphine injection 4 mg (4 mg IntraVENous Given 05/12/24 1001) ondansetron (Zofran) injection 4 mg (4 mg IntraVENous Given 05/12/24 1001) sodium chloride 0.9 % bolus 1,000 mL (0 mL IntraVENous Stopped 05/12/24 1040) metoclopramide (Reglan) injection 10 mg (10 mg IntraVENous Given 05/12/24 1049) LORazepam (Ativan) injection 0.5 mg (0.5 mg IntraVENous Given 05/12/24 1049) sodium chloride 0.9 % bolus 1,000 mL (0 mL IntraVENous Stopped 05/12/24 1306) ondansetron (Zofran) injection 4 mg (4 mg IntraVENous Given 05/12/24 1435) REVAL: CRITICAL CARE TIME None CONSULTS: None PROCEDURES: Unless otherwise noted below, none Procedures Patients symptoms are consistent with sepsis, severe sepsis, or septic shock (If yes use .sepsiscoremeasure): no FINAL IMPRESSION 1. Generalized abdominal pain 2. Chest pain, unspecified type 3. Nausea vomiting and diarrhea 4. Acute kidney injury (HCC) DISPOSITION Discharge 05/12/2024 03:50:31 PM PATIENT REFERRED TO: Rory Greenfield MD [address] [facility] [id number] In 2 days [facility] [address] [facility] [id number] If symptoms worsen DISCHARGE MEDICATIONS: New Prescriptions DICYCLOMINE (BENTYL) 20 MG TABLET Take 1 tablet (20 mg) by mouth 2 times daily for 10 days. ONDANSETRON ODT (ZOFRAN-ODT) 4 MG DISINTEGRATING TABLET Take 1 tablet (4 mg) by mouth every 8 hours as needed for nausea or vomiting for up to 7 days. (Comment: Please note this report has been produced using speech recognition software and may contain errors related to that system including errors in grammar, punctuation, and spelling, as well as words and phrases that may be inappropriate. If there are any questions or concerns please feel free to contact the dictating provider for clarification.) TYE Menendez CNP (electronically signed) Emergency Medicine Provider TYE Menendez CNP 05/12/24 1433 TYE Menendez CNP 05/12/24 1551 ED NURSING NOTE Observed: 05/12/2024 9:02 AM Status: COMPLETED Source: [facility] Pt comes to ED from home wit h c/o right lower abd pain that started around 0300 today. 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 ED PROVIDER NOTE Observed: 05/12/2024 9:02 AM Status: COMPLETED Source: [facility] Emergency Department Encount er [facility] ED Patient: Ta Brantley : 1975 Date of Evaluation: 05/12/2024 ED Supervising Physician: Niko Spicer DO I personally saw Ta Brantley and made/approved the management plan and take responsibility for the patient management. This will serve as my Supervisory note and shared attestation. I did perform a substantive portion of the visit including all aspects of the Medical Decision Making. I wore appropriate PPE for the entirety of this encounter. In brief, Ta Brantley is a 49 y.o. that presents to the emergency department diffuse abdominal pain started at 3 AM today. Patient also with nausea vomiting and diarrhea. Patient is a diabetic on insulin pump. No fevers. Focused exam: Alert and oriented ?4, no acute distress, nontoxic appearing, Pulm: clear to auscultation bilaterally, Cardiac: regular rate and rhythm, Abdomen: soft mild epigastric tenderness., Neuro: no focal motor or sensory deficits. Brief ED course/MDM: Patient presents with abdominal pain nausea vomiting diarrhea since 3 AM. Patient does have history of diabetes. CT scan shows likely enteritis which fits the clinical picture. After first round of antiemetics patient still vomiting. Morphine did help with the abdominal pain. Nursing staff reported to us that while he was in the emergency room he had an episode of nausea vomiting got very diaphoretic and also had chest pressure which resolved spontaneously. Workup expanded to include cardiac workup. EKG showed no acute ischemic changes and appears similar to the past. Initial troponin was 33, 2-hour delta troponin did rise to 38 so we will obtain a 4-hour delta troponin. If the 4-hour delta troponin continues to rise patient will be admitted for chest pain rule out. If the 4-hour delta troponin is stable, will be discharged Diagnostics interpreted by me: EKG(s) no acute ischemic changes I personally discussed the patient's management with other clinicians: All diagnostic, treatment, and disposition decisions were made by myself in conjunction with the [facility]. For all further details of the patient's emergency department visit, please see their documentation. (Comment: Please note this report has been produced using speech recognition software and may contain errors related to that system including errors in grammar, punctuation, and spelling, as well as words and phrases that may be inappropriate. If there are any questions or concerns please feel free to contact the dictating provider for clarification.) Niko Spicer, DO [employer] Niko Spicer DO 05/12/24 1458 ALLERGIES DATE TYPE / CODE NAME / CODE REACTION SEVERITY SOURCE 12/11/2016 [facility]/[id number] 6(SNOMED CT) SEASONAL ALLERGIES COUGH Menezes Cli mayte Menezes ENCOUNTERS ADMIT/DISCHARGE ACCOUNT NUMBER ADMITTING ENCOUNTER CLASS LOCATION SOURCE 03/14/2025/03/14/20 [id number] Ambulatory [facility] ng:AKLBB [facility] 03/03/2025/03/03/20 [id number] Ambulatory Build[place] [id number] [facility] 02/11/2025/02/12/20 [id number] Ambulatory Buildin [id number] [facility] 02/03/2025/02/04/20 [id number] Ambulatory Buildin [id number] [facility] 01/31/2025/02/01/20 25 [id number] NIKO LAYNE Ambulatory Buildin [id number]: SBHENDOBed: 6021 [facility] 01/26/2025/01/27/20 25 [id number] Ambulatory Buildin [id number] [facility] 01/24/2025/01/25/20 25 [id number] [facility] [place] [facility] 01/10/2025/01/11/20 25 [id number] Emergency Buildin [id number]: [id number]: 06 [facility] 01/04/2025/01/05/20 25 [id number] Ambulatory Build[place] [id number] [facility] 12/30/2024/12/31/19 25 [id number] Ambulatory Buildin [id number] [facility] 12/23/2024/12/24/19 25 [id number] Ambulatory Buildin [id number] [facility] 12/10/2024/12/11/19 25 [id number] [facility] [place] [facility] 08/30/2024/08/31/19 25 [id number] Ambulatory [facility]:ADEL[facility]IDA [facility] 07/05/2024/07/07/19 25 [id number] Emergency Buildin [id number]: MPPILLE19Lez: VC05 [facility] 05/14/2024/05/16/19 25 [id number] VALERIE ESCOBAR Ambulatory Buildin 73399Qeyo: [facility] B4-462Bed: B4-462 A [facility] 05/12/2024/05/12/19 25 [id number] Emergency Buildin [id number]: SBHTR-CBed: TR-C [facility] PAYERS ENCOUNTER GUARANTOR PAYER SUBSCRIBER SOURCE 03/14/2025 Primary Insuranc e:BLUE ACCESS PPOPolicy Number: [id number] Date:1980-01-41Zwqc Name:Summer BRANTLEYDOB: [id number] [place], [place] [address] [place] [address] 03/14/2025 Secondary Insurance:MEDICARE A AND BPolicy Number: [id number] Date:3712-45-47Veyj Name:Molly Weems RIDINGDOB: [id number] 03/03/2025 Primary Insurance:NEGRITO RUIZ CROSSPolicy Number: [id number] Date:4302-58-33Jhuf Name:Commercial DAYAMI ELLISONINGDOB: [id number] 03/03/2025 Secondary Insurance:MEDICAREPolic y Number: [id number] Date:1233-95-86Agmi Name:Med[address], [place] [address]YA: TA BRANTLEYDOB: [id number] [address] 02/03/2025 Primary Insurance:NEGRITO PARADAPolicy Number: [id number] Date:4240-69-04Ujci Name:Yu Rong DAYAMI BRANTLEYDOB: [id number] [address] 02/03/2025 Secondary Insurance:MEDICAREPolic y Number: [id number] Date:3814-23-22Sncn Name:Medic[address] [address]YY: TA BRANTLEYDOB: [id number] [address] 01/31/2025 Primary Insurance:ANTHCHEYENNE RUIZ CROSSPolicy Number: [id number] Date:5039-19-34Xsvj Name:Yu Rong DAYAMI ELLISONINGDOB: [id number] [address] 01/31/2025 Secondary Insurance:MEDICAREPolic y Number: [id number] Date:5882-01-47Yetb Name:MedicarePO [address] [address]MU: TA Weems RIDINGDOB: [id number] [address] 01/26/2025 Primary Insurance:NEGRITO RUIZ CROSSPolicy Number: [id number] Date:0308-53-92Vspn Name:Commercial DAYAMI ELLISONINGDOB: [id number] [address] 01/26/2025 Secondary Insurance:MEDICAREPolic y Number: [id number] Date:2251-98-18Dehd Name:MedicarePO [address] [address]XH: TA Weems SCOTINGDOB: [id number] [address] 01/24/2025 Primary Insuranc e:JOSEPH ROCHA PPOPolicy Number: [id number] Date:5533-61-15Mtbm Name:Summer Aguilar SANDORDOB: [id number] [address] 01/24/2025 Secondary Insurance:MEDICARE A AND BPolicy Number: [id number] Date:3675-99-38Lwhb Name:Molly Weems SCOTINGDOB: [id number] [address] 01/10/2025 Primary Insurance:NEGRITO RUIZ CROSSPolicy Number: [id number] Date:4552-57-77Bjmv Name:Esteban STOCK RIDINGDOB: [id number] [address] 01/10/2025 Secondary Insurance:MEDICAREPolic y Number: [id number] Date:1250-72-15Isgo Name:[place] [address]MQ: TA Weems RIDINGDOB: [id number] [address] 01/04/2025 Primary Insurance:NEGRITO PARADAPolicy Number: [id number] Date:3621-37-77Lluk Name:Commercial DAYAMI RIDINGDOB: [id number] 01/04/2025 Secondary Insurance:MEDICAREPolic y Number: [id number] Date:6254-38-09Iajz Name:[place] [address]FW: TA Weems RIDINGDOB: [id number] [address] 12/30/2024 Primary Insurance:NEGRITO PARADAPolicy Number: [id number] Date:9450-69-17Atbk Name:Commercial DAYAMI RIDINGDOB: [id number] [address] 12/30/2024 Secondary Insurance:MEDICAREPolic y Number: [id number] Date:9204-19-17Qefb Name:[place] [address]RZ: TA Weems RIDINGDOB: [id number] [address] 12/23/2024 Primary Insurance:NEGRITO RUIZ CROSSPolicy Number: [id number] Date:6444-13-47Rglq Name:Commercial DAYAMI RIDINGDOB: [id number] [address] 12/23/2024 Secondary Insurance:MEDICAREPolic y Number: [id number] Date:4369-04-94Xxmg Name:[place] [address]JC: TA Weems RIDINGDOB: [id number] [place] [address] [facility] 12/10/2024 Primary Insuranc e:BLUE ACCESS PPOPolicy Number: [id number] Date:5905-14-87Qhem Name:Summer Aguilar RIDINGDOB: [id number] [place] [address] [facility] 12/10/2024 Secondary Insurance:MEDICARE A AND BPolicy Number: [id number] Date:0816-91-89Ejrq Name:Molly Weems RIDINGDOB: [id number] [place], [place] [id number] [place] [address] 08/30/2024 Primary Insuranc e:BLUE ACCESS PPOPolicy Number: [id number] Date:1644-02-16Pfuy Name:Summer Aguilar RIDINGDOB: [id number] [place] [address] [facility] 08/30/2024 Secondary Insurance:MEDICARE A AND BPolicy Number: [id number] Date:9684-02-74Sbna Name:Molly Weems RIDINGDOB: [id number] [place] [address] [facility] 07/05/2024 Primary Insurance:NEGRITO RUIZ CROSSPolicy Number: [id number] Date:8422-75-49Dfuq Name:Esteban DAYAMI ELLISONINGDOB: [id number] [place] [address] [facility] 07/05/2024 Secondary Insurance:MEDICAREPolic y Number: [id number] Date:8694-06-85Oetz Name:MedicarePO NATAN [id number] [address]FC: TA Weems RIDINGDOB: [id number] [address] 05/14/2024 Primary Insurance:NEGRITO PARADAPolicy Number: [id number] Date:6309-23-40Coxq Name:Commercial DAYAMI BRANTLEYDOB: [id number] 05/14/2024 Secondary Insurance:MEDICAREPolic y Number: [id number] Date:0021-63-50Vfuy Name:MedicarePO NATAN [id number] [address]DN: TA Dank RIDINGDOB: [id number] [address] 05/12/2024 Primary Insurance:NEGRITO Monicy Number: [id number] Date:5111-27-12Wmfi Name:Commercial DAYAMI BRANTLEYDOB: [id number] [address] 05/12/2024 Secondary Insurance:MEDICAREPolic y Number: [id number] Date:5507-25-58Eqyh Name:Medicare[place] [address]WQ: TA Dank RIDINGDOB: [id number] [address]
[2025-03-18 09:09] VITALS: BMI 38.5
--- NOTE | 2025-03-28 13:59 | CL.D_ITS ---
Patient Name: TA PATTEN Study Date: 03/21/2025 Performing: Kristopher Haq MD Ht: 76 inches 193.04 cm : 1975 Wt: 316.4 lbs 143.34 kg Age: 49 Gender: male BSA: 2.69 PROCEDURE(S) PERFORMED DC01-(47878)LHC/COR/LV CLINICAL PROFILE AND INDICATIONS Indications: Suspected CAD Heart Failure: None Stress/Imaging Date: 02/04/25Stress Test with SPECT MPI: Positive Low Risk CAD Presentations: No Sxs, no angina. CONCLUSIONS Previously placed stent in the left anterior descending artery is patent and mild residual disease only noted. Mild aortic stenosis is present. RECOMMENDATIONS Aggressive risk factor modification and formal echocardiogram. DESCRIPTION OF PROCEDURE The patient arrived to the procedure lab. The risks and benefits of the procedure as well as a full description of our services here and current unavailability of surgical backup were fully explained to the patient and/or their significant other prior to the catheterization. The Timeout was completed, verifying the correct patient and procedure. The patient's procedural site was prepped and draped in the usual fashion. Local anesthetic was given subcutaneously to right radial region with Lidocaine 2%. Using a modified Seldinger technique, arterial access was obtained via the right radial artery, a 6Fr sheath was inserted. Right Coronary Artery selective angiography was then performed in multiple views using a 5 Fr. 4.0 [place] catheter. Left Coronary Artery selective angiography was performed in multiple views using a 5 Fr. JL4 catheter. Left Ventriculography was performed in CABRERA projection using a 5 Fr. Pigtail catheter. LV to AO pullback pressures were then recorded.The arterial sheath was pulled and a TR Band was applied for hemostasis. 10cc air CORONARY ANGIOGRAPHY DOMINANCE: Right Dominant LEFT HEART ASSESSMENT Left Ventricular Ejection Fraction: by LV Gram 60 % Normal LV wall motion Normal Left Ventricular systolic function LEFT MAIN: Angiographically normal LEFT ANTERIOR DESCENDING ARTERY: Recently stented vessel with a long stent from the proximal to the midsegment with mild in-stent stenosis and mild distal diffuse disease present. CIRCUMFLEX ARTERY: Dominant vessel with no high-grade stenosis of the 1st and 2nd obtuse marginal branch and the AV groove branch and codominant posterior descending artery demonstrating mild diffuse stenosis. RIGHT CORONARY ARTERY: Codominant small vessel with proximal 30% stenosis and mild diffuse distal disease VALVE FINDINGS: Aortic Valve Stenosis - mild AORTIC ROOT: Dilated COMPLICATIONS No Complications PROCEDURE MEDICATIONS Fentanyl 50 mcg IV Versed 1 mg IV Versed 1 mg IV Oxygen: 2 L/min via nasal cannula Baby Aspirin (81mg) 1 Tabs PO @ 03/21/2025 07:51:13 SUMMARY OF HEMODYNAMIC DATA Time AIR REST ECG 07:48:29 AO 112/61 (80) SA 09:40:51 LV 105/1, 10 09:44:19 LV 162/3, 14 09:55:07 LV 156/3, 16 09:55:15 LV 150/2, 16 09:55:50 LVp 149/1, 14 09:55:56 AOp 116/56 (78) 09:56:03 AIR REST 10:07:11 Signed By Kristopher Haq MD On 03/28/2025 13:58:16 Kristopher Haq MD
== END 2025-03-21 11:45 | disposition home or self-care (01) ==
PROVIDERS: Nurse Practitioner Gerontology; Student in an Organized Health Care Education/Training Program; PCP Family Medicine; Referring Provider Internal Medicine Cardiovascular Disease; Visit Provider Internal Medicine Cardiovascular Disease
DX: I35.0 Nonrheumatic aortic (valve) stenosis (principal); E11.9 Type 2 diabetes mellitus without complications; Z79.4 Long term (current) use of insulin; I10 Essential (primary) hypertension; Z95.5 Presence of coronary angioplasty implant and graft; Z79.82 Long term (current) use of aspirin; Z79.899 Other long term (current) drug therapy; Z79.84 Long term (current) use of oral hypoglycemic drugs; I25.10 Atherosclerotic heart disease of native coronary artery without angina pectoris; Z87.891 Personal history of nicotine dependence; R42 Dizziness and giddiness; R94.39 Abnormal result of other cardiovascular function study; E78.2 Mixed hyperlipidemia; T82.855A Stenosis of coronary artery stent, initial encounter; Y71.8 Miscellaneous cardiovascular devices associated with adverse incidents, not elsewhere classified; I77.819 Aortic ectasia, unspecified site
CPT/HCPCS: 36415; 71046; 80048; 80061; 82248; 85025; 85610; 93458; 99152; 99153; Q9967; C1769; C1894

== ENCOUNTER → 2025-04-08 | Outpatient (CLI) | payer BC, MEDICARE, SELFPAY ==
--- NOTE | 2025-04-08 09:59 | ECHOCS_ITS ---
Reason For Study Reason For Study: CAD/ASHD Procedure This was a 2D Doppler, Color Flow transthoracic echocardiogram. The study was technically difficult. Contrast injection was performed. Exam performed in department. Left Ventricle Normal LV size. Severe concentric left ventricular hypertrophy. The left ventricular ejection fraction is 70 %. Resting LV gradient 79 mmHg. No regional wall motion abnormalities noted. Right Ventricle Normal RV size. Normal systolic function. Atria Normal left atrium. Normal right atrium. Mitral Valve Normal mitral valve. Systolic anterior motion of the mitral valve. Tricuspid Valve Normal tricuspid valve. Aortic Valve Normal aortic valve. Pulmonic Valve Normal pulmonic valve. Great Vessels Normal aortic root. The pulmonary artery is normal size. Inferior vena cava collapse with respiration. Pericardium/Pleural No pericardial effusion. Medication 22 gauge I.V. with prn adaptor inserted into right arm. Diluted definity 1ml given slow IV push to enhance endocardial definition. MMode/2D Measurements & Calculations LVIDd: 5.0 cm IVSd: 1.7 cm Ao root diam: 3.4 cm LVIDs: 2.8 cm LVPWd: 1.6 cm FS: 44.1 % LAV(MOD-bp): 46.6 ml LVAd ap4: 39.4 cm2 SV(MOD-sp4): 74.7 ml LAV(MOD-bp) Indexed: 17.3 ml/m2 LVLd ap4: 10.1 cm SI(MOD-sp4): 27.8 ml/m2 LAV(MOD-sp2): 49.0 ml EDV(MOD-sp4): 121.6 ml LAV(MOD-sp4): 44.3 ml EDV(sp4-el): 130.2 ml LVAs ap4: 21.9 cm2 LVLs ap4: 8.2 cm ESV(MOD-sp4): 46.9 ml ESV(sp4-el): 49.6 ml EF(MOD-sp4): 61.4 % EF(sp4-el): 61.9 % SV(sp4-el): 80.6 ml LA A4 area: 17.8 cm2 LA dimension(2D): 4.3 cm RA A4 area: 10.8 cm2 Time Measurements MV dec time: 0.20 sec Doppler Measurements & Calculations MV E max joe: 91.5 cm/sec Lat Peak E' Joe: 10.2 cm/sec Med Peak E' Joe: 5.9 cm/sec MV A max joe: 84.9 cm/sec E/E' lat: 9.0 E/E' med: 15.6 MV E/A: 1.1 MV V2 max: 98.6 cm/sec MV dec slope: 506.2 cm/sec2 Ao V2 max: 217.5 cm/sec MV max P.9 mmHg Ao max P.9 mmHg MV V2 mean: 69.4 cm/sec Ao V2 mean: 168.5 cm/sec MV mean P.1 mmHg Ao mean P.7 mmHg MV V2 VTI: 30.3 cm Ao V2 VTI: 50.0 cm PA V2 max: 117.1 cm/sec PA V2 mean: 77.8 cm/sec ECHO/Echo Complete W/ Contrast Interpretation Summary Normal LV size. The left ventricular ejection fraction is 70 %. Severe concentric left ventricular hypertrophy. Resting LV gradient 79 mmHg. Systolic anterior motion of the mitral valve. Contrast injection was performed. Ordering Physician: Kristopher Haq Referring Physician: Kristopher Haq Performed By: Diana Dodson RCS
== END | disposition home or self-care (01) ==
LOC: CVS 09:57
PROVIDERS: PCP Family Medicine; Referring Provider Internal Medicine Cardiovascular Disease; Visit Provider Internal Medicine Cardiovascular Disease
DX: I25.10 Atherosclerotic heart disease of native coronary artery without angina pectoris (principal); R94.39 Abnormal result of other cardiovascular function study
CPT/HCPCS: 93306; Q9957; A4216; C8929